=== PATIENT | male | born 1980 | race African-American/Black ===

== ENCOUNTER 2023-03-23 22:47 | Observation (INO) | payer MEDICAID, SELFPAY ==
[2023-03-23] VITALS (9 sets, daily range): BP systolic 107; BP diastolic 32; PULSE 88–96; RESP 15–26; TEMP 37.2; O2SAT 94–99; BMI 78.7
--- NOTE | 2023-03-23 22:58 | ECG_ITS ---
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
--- NOTE | 2023-03-23 22:58 | ED.ALLEREA1 ---
HPI - Allergic Reaction General Chief complaint: Allergic Reaction Stated complaint: allergic reaction Time Seen by Provider: 03/23/23 22:56 Source: patient Mode of arrival: ambulance History of Present Illness HPI narrative: patient states he was seen for an allergic reaction at [facility] a couple of days ago. Describes swelling of his lips and tongue. Discharged and yesterday the rash returned. Seen at local clinic today and prescribed dexamethasone. Tonight weak and light headed when standing. Feels like he is going to pass out and feels short of breath. Transferred to the Er by Squad. Arrives with BP 107 systolic. No chest pain. Feels like he is itching under his skin. No fever . Sl. nausea denies history of heart disease of diabetes MD complaint: Reports allergic reaction and hives Related Data Home Medications Medication Instructions Recorded Confirmed baclofen 10 mg tablet 5 mg PO Q8H 03/23/23 03/23/23 calcium carbonate 200 mg calcium 200 mg PO DAILY 03/23/23 03/23/23 (500 mg) chewable tablet (Tums) cyanocobalamin (vitamin B-12) 1,000 mcg PO DAILY 03/23/23 03/23/23 1,000 mcg tablet famotidine 40 mg tablet 40 mg PO DAILY 03/23/23 03/23/23 ferrous sulfate 325 mg (65 mg 325 mg PO DAILY 03/23/23 03/23/23 iron) tablet (FeroSul) hydrocodone 5 mg-acetaminophen 325 1 tab PO Q12H 03/23/23 03/23/23 mg tablet levothyroxine 125 mcg tablet 125 mcg PO DAILY 03/23/23 03/23/23 (Euthyrox) lidocaine HCl 4 % topical cream 1 applic topical Q8H PRN back pain 03/23/23 03/23/23 (Aspercreme (lidocaine HCl)) spironolactone 25 mg tablet 25 mg PO TID 03/23/23 03/23/23 torsemide 100 mg tablet 100 mg PO DAILY 03/23/23 03/23/23 tramadol 50 mg tablet 25 mg PO Q6H PRN pain 03/23/23 03/23/23 urea 20 % topical cream 1 applic topical DAILY PRN dry skin 03/23/23 03/23/23 Allergies Allergy/AdvReac Type Severity Reaction Status Date / Time Milk Containing Products Allergy Verified 03/23/23 22:55 (Dairy) Sulfa (Sulfonamide Allergy Verified 03/23/23 22:59 Antibiotics) vancomycin Allergy Verified 03/23/23 22:55 Review of Systems ROS Status of ROS 10 or more systems reviewed and unremarkable except as noted in history and below PFSH PFS Social History Smoking status: Never smoker Exam Constitutional Vital Signs, click to edit/add: Last Vital Signs Temp 98.9 F 03/23/23 22:50 Pulse 92 H 03/23/23 22:50 Resp 18 03/23/23 22:50 BP 107/32 L 03/23/23 22:50 Pulse Ox 98 03/23/23 22:50 O2 Del Method Room Air 03/23/23 22:50 Other: mobidly obese. gen hives on his chest and extremities. visibly short of breath moving from stretcher to bed. HENMT Common normals: normocephalic and head/scalp atraumatic Eye Common normals: EOMs intact bilaterally and conjunctivae normal Respiratory Common normals: normal respiratory effort, no retractions, no use of accessory muscles and clear to auscultation bilaterally Cardio Common normals: regular rate, regular rhythm and S1 normal heart sound GI Common normals: Normal to inspection, nondistended, normoactive bowel sounds present and soft to palpation Extremity Other: chronic bilat lymphedema Neuro Common normals: oriented x3, moves all extremities, no focal motor deficits and no sensory deficits noted Psych Appearance: grossly normal Course Vital Signs Vital signs: Vital Signs Temperature 98.9 F 03/23/23 22:50 Pulse Rate 92 H 03/23/23 22:50 Respiratory Rate 18 03/23/23 22:50 Blood Pressure 107/32 L 03/23/23 22:50 Pulse Oximetry 98 03/23/23 22:50 Oxygen Delivery Method Room Air 03/23/23 22:50 Temperature 98.9 F 03/23/23 22:50 Pulse Rate 92 H 03/23/23 22:50 Respiratory Rate 18 03/23/23 22:50 Blood Pressure 107/32 L 03/23/23 22:50 Pulse Oximetry 98 03/23/23 22:50 Oxygen Delivery Method Room Air 03/23/23 22:50 MDM - Allergic Reaction MDM Narrative Medical decision making narrative: patient presents with systemic allergic reaction manifested by shortness of breath, generalized weakness, systemic hives and hypotensive. First seen 3 days ago at [facility]. At that visit had swelling of his lips and tongue. Rash again yesterday and seen by his PCP and prescribed dexamethasone. Karen called Squad for shortness of breath, dizziness. [place] like he was going to pass out when he was upright. BP reported initially at 77 systolic at the scene. improved to > 100 systolic once in the Squad vehicle . Hs is morbidly obese and has history of obstructive sleep apnea and CKD. Noted to have diffuse gen. hives on his face, trunk and extremities. No wheezing. Treated with Epi 0.3 SQ, IV solumedrol, benadryl and pepcid and IV fluids. His rash has improve. He continues to complain of gen. itching. Given 2nd dose of benadryl and hospitalist paged for obs admission Discharge Plan Discharge Chief Complaint: Allergic Reaction Clinical Impression: Obstructive sleep apnea, Near syncope, Allergic reaction Prescriptions / Home Meds: No Action levothyroxine [Euthyrox] 125 mcg tablet 125 mcg PO DAILY hydrocodone-acetaminophen 5-325 mg tablet 1 tab PO Q12H spironolactone 25 mg tablet 25 mg PO TID torsemide 100 mg tablet 100 mg PO DAILY calcium carbonate [Tums] 200 mg calcium (500 mg) tablet,chewable 200 mg PO DAILY tramadol 50 mg tablet 25 mg PO Q6H PRN (Reason: pain) urea 20 % cream 1 applic topical DAILY PRN (Reason: dry skin) lidocaine HCl [Aspercreme (lidocaine HCl)] 4 % cream 1 applic topical Q8H PRN (Reason: back pain) baclofen 10 mg tablet 5 mg PO Q8H cyanocobalamin (vitamin B-12) 1,000 mcg tablet 1,000 mcg PO DAILY famotidine 40 mg tablet 40 mg PO DAILY ferrous sulfate [FeroSul] 325 mg (65 mg iron) tablet 325 mg PO DAILY Referrals: [facility] [Primary Care Provider] - 1 week
[2023-03-23] MEDS: EPINEPHRINE HCL PF 1 MG/ML AMPULE 0.3 MG SUBQ (23:45)
[2023-03-23] MEDS: METHYLPREDNISOLONE SOD SUCC PF 125 MG/2 ML VIAL IVP (23:45)
[2023-03-23] MEDS: 0.9 % SODIUM CHLORIDE 1,000 ML 999 ML IV (23:45)
[2023-03-23] MEDS: DIPHENHYDRAMINE HCL 25 MG CAPSULE 50 MG PO (23:58)
[2023-03-23] MEDS: FAMOTIDINE 20 MG TABLET 40 MG PO (23:58)
[2023-03-24] VITALS (14 sets, daily range): BP systolic 94; BP diastolic 55; PULSE 76–90; RESP 17–23; TEMP 36.8; O2SAT 93–98; BMI 78.7
[2023-03-24 00:21] LABS: Hematocrit 46.2 % (42.0-54.0); Hemoglobin 13.6 g/dL (14.0-18.0); Mean Corpuscular HGB Conc 29.4 g/dL (29.9-35.2); Mean Corpuscular Hemoglobin 28.2 pg (25.9-34.0); Mean Corpuscular Volume 95.7 fL (80.0-94.0); Platelet Count 234 10^3/uL (150-450); Red Blood Count 4.83 10^6/uL (4.70-6.10); Red Cell Distribution Width 15.9 % (11.0-15.0); White Blood Count 9.5 10^3/uL (4.0-11.0)
[2023-03-24 00:37] LABS: Anion Gap 11.1; BUN Creatinine Ratio 10.8; Calcium 8.1 mg/dL (8.5-10.1); Carbon Dioxide 27.7 mmol/L (21.0-32.0); Chloride 103 mmol/L (98-107); Estimated GFR (African America 48 (>=60); Estimated GFR (Non-African Ame 40 (>=60); Glucose 151 mg/dL (74-106); Potassium 3.8 mmol/L (3.5-5.1); Sodium 138 mmol/L (136-145); Troponin I High Sensitivity 19.5 pg/mL (4.0-76.1)
[2023-03-24 00:45] LABS: Lactate/Lactic Acid 2.2 mmol/L (0.4-2.0)
[2023-03-24 01:17] LABS: Band Neutrophils Absolute 2.1 10^3/uL (0.0-0.3); Lymphocytes Absolute Manual 1.23 10^3/uL (1.20-3.80); Monocytes Absolute Manual 0.85 10^3/uL (0.30-0.80); Segmented Neut Absolute Manual 5.32 10^3/uL (1.4-6.5)
[2023-03-24] MEDS: DIPHENHYDRAMINE HCL 50 MG/ML (1ML) VIAL IV (01:57)
[2023-03-24] MEDS: 0.9 % SODIUM CHLORIDE 1,000 ML 999 ML IV (01:57)
[2023-03-24 03:22] LABS: Lactate/Lactic Acid 1.6 mmol/L (0.4-2.0)
--- NOTE | 2023-03-24 04:38 | W.PM.TELEPN ---
Progress Note: Subjective Subjective Interval history: CC: Dizziness, lightheadedness, difficulty breathing HPI: This is a 42 years old -Indian male who presents with above complaints. Patient stating that few days ago he developed similar reaction and been seen in medical facility where he was diagnosed with allergic reaction/urticaria. He was treated with steroids, Benadryl and, after his symptoms resolved, was released home. Patient stating that symptoms reoccurred. On presentation to the emergency room he was found to be somewhat hypotensive, with urticaria patches on his skin. Patient was treated with epinephrine, Solu-Medrol, Pepcid, Benadryl with a good response. On further questioning patient denies any recent changes in his medications open (specifically no new medications been added prescription or [id number]). He denies using any new cleaning/cosmetic products. Exam Narrative Exam Narrative: ROS: 1.General: no fever, chills, not in distress 2.HEENT: no DOMÍNGUEZ, no blurry vision, no swallow problems, no nasal congestion, no sore throat 3.Pulmonary: See above 4.CVS: no CP, no palpitations, no SULLIVAN, no SOB, no intermittent claudication 5.GI: no nausea, vomiting or diarrhea, no abdominal pain, no constipation, no hematemesis or hematochezia 6.: no renal colic, no hematuria, urinary frequency or urgency 7.Extremities: no edema 8.Neurological: no dizziness, vertigo, double or blurry vision, no no focal weakness, no paresthesia, no swallow or speech problems 9.Musculosceletal: no joint pains, no joint swelling, no back pain 10.Dermatological: no skin rashes, no lesions, no pruritus 11.Hematological: no bleeding, no hx/o clots 12.Endocrinological: no heat/cold intolerance, no hx/o diabetes 13.Psychiatric: no suicidal or homicidal thoughts Physical Exam: Not in distress, pleasant, lucid, cooperative, morbidly obese Head - atraumatic, eyes - pupils equal, round, reactive to light, extra ocular movement intact, MMM Neck - supple, thyroid not enlarged, LN not palpated Lungs - clear to auscultation, no dullness on percussion CVS - heart sounds S1, S2, no additional murmurs gallop, regular rate and rhythm Gastrointestinal?abdomen is soft, non-tender, non-distended, no organomegaly, positive bowel sounds Extremities no clubbing, cyanosis or edema Neurological?cranial nerve II?XII grossly intact, no meningeal signs, no cerebellar signs, no sensory deficit Musculoskeletal - joints, no effusions, ROM preserved Dermatological - the skin dry, warm, no rashes Psychiatric?patient is AAO X3, patient has normal affect Constitutional Vital Signs, click to edit/add: Last Vital Signs Temp 98.3 F 03/24/23 03:09 Pulse 89 03/24/23 04:00 Resp 20 03/24/23 03:09 BP 94/55 03/24/23 03:09 Pulse Ox 96 03/24/23 03:09 O2 Del Method Room Air 03/24/23 03:09 O2 Flow Rate 2 03/24/23 03:09 Progress Note: Objective Labs Labs: Short CBC 03/23/23 Range/Units 23:28 WBC 9.5 (4.0-11.0) 10^3/uL Hgb 13.6 L (14.0-18.0) g/dL Hct 46.2 (42.0-54.0) % Plt Count 234 (150-450) 10^3/uL BMP 03/23/23 23:28 Sodium 138 Potassium 3.8 Chloride 103 Carbon Dioxide 27.7 BUN 20.0 H Creatinine 1.85 H Glucose 151 H Calcium 8.1 L Progress Note: A&P Assessment and Plan (1) Allergic reaction: Assessment and Plan: Reason unclear Continue close monitoring on telemetry Continue with Benadryl, Pepcid, Solu-Medrol (2) Obstructive sleep apnea: Assessment and Plan: Continue nocturnal CPAP with home settings (3) Acute kidney failure: Assessment and Plan: Diuretic is going to be on hold. Patient started on gentle, judicious IV fluid resuscitation (4) Hypothyroidism: Assessment and Plan: Continue with home dose of supplemental levothyroxine (5) Morbid obesity due to excess calories: Assessment and Plan: Defer to outpatient management (6) Diabetes: Assessment and Plan: Patient started on ADA diet, insulin sliding scale coverage, Accu-Cheks Plan END: As the provider for the telehealth service, I attest that I introduced myself to the patient, provided my credentials, disclosed by location and determined that based on a review of the patient's chart and discussion with members of the patient's treatment team, telemedicine via real-time, 2 way, and interactive audio and video platform is an appropriate and effective means of providing the service. ?The patient and I mutually agree this visit is appropriate for telemedicine. ?The virtual encounter was taken place from? [place], [place]. ?The encounter took approximately 35 minutes. ?The nurse was present during the entire time and I was able to move the stethoscope in appropriate directions. ?The patient was evaluated at the Hospital ? Portions of this note may be dictated using [email or web address] voice recognition software. Variances in spelling and vocabulary are possible and unintentional. Not all errors may be caught and/or corrected. Please notify the author if any discrepancies are noted and/or if the meaning of any statement is unclear.? ? Patient verbally consented for treatment via video visit with patient currently located at the [facility] and provider located in [place]. Telemedicine Attestation Telemedicine Attestation I conducted this encounter from [[place]] via secure live, [id number] video conference with the patient, located at [facility] with [urticaria]. Prior to the interview, the risks and benefits of telemedicine were discussed with the patient and verbal consent was obtained.
[2023-03-24 05:25] LABS: Basophils Percent Auto 0.3 % (0.2-2.0); Eosinophils Absolute Auto 0.1 10^3/uL (0.0-0.7); Eosinophils Percent Auto 0.4 % (0.9-7.0); Hematocrit 42.1 % (42.0-54.0); Hemoglobin 12.5 g/dL (14.0-18.0); Immature Granulocytes Abs Auto 0.09 10^3/uL (0.00-0.03); Immature Granulocytes Pct Auto 0.8 % (0.0-0.5); Lymphocytes Absolute Auto 0.4 10^3/uL (1.2-3.8); Lymphocytes Percent Auto 3.8 % (20.5-60.0); Mean Corpuscular HGB Conc 29.7 g/dL (29.9-35.2); Mean Corpuscular Hemoglobin 28.3 pg (25.9-34.0); Mean Corpuscular Volume 95.5 fL (80.0-94.0); Mean Platelet Volume 11.6 fL (9.5-13.5); Monocytes Absolute Auto 0.4 10^3/uL (0.3-0.8); Monocytes Percent Auto 3.1 % (1.7-12.0); Neutrophils Absolute Auto 10.5 10^3/uL (1.4-6.5); Neutrophils Percent Auto 91.6 % (43.0-75.0); Platelet Count 219 10^3/uL (150-450); Red Blood Count 4.41 10^6/uL (4.70-6.10); Red Cell Distribution Width 15.9 % (11.0-15.0); White Blood Count 11.4 10^3/uL (4.0-11.0)
[2023-03-24 05:34] LABS: Anion Gap 12.5; BUN Creatinine Ratio 10.4; Calcium 7.5 mg/dL (8.5-10.1); Carbon Dioxide 26.8 mmol/L (21.0-32.0); Chloride 104 mmol/L (98-107); Estimated GFR (African America 46 (>=60); Estimated GFR (Non-African Ame 38 (>=60); Glucose 195 mg/dL (74-106); Potassium 4.3 mmol/L (3.5-5.1); Sodium 139 mmol/L (136-145)
[2023-03-24] MEDS: LEVOTHYROXINE SODIUM 125 MCG TABLET PO (06:40)
[2023-03-24] MEDS: 0.9 % SODIUM CHLORIDE 1,000 ML 75 ML IV (06:40)
[2023-03-24 07:34] LABS: Glucometer 262 mg/dL (74-106)
[2023-03-24] MEDS: CALCIUM CARBONATE 500 MG (200MG ELEMENTAL) TAB CHEW PO (09:10)
[2023-03-24] MEDS: HYDROCODONE/ACET 5-325 MG TABLET 1 TAB PO (09:10)
[2023-03-24] MEDS: FAMOTIDINE/PF 20 MG/2 ML VIAL IV (09:10)
[2023-03-24] MEDS: BACLOFEN 10 MG TABLET 5 MG PO (09:10)
[2023-03-24] MEDS: METHYLPREDNISOLONE SOD SUCC PF 40 MG/ML VIAL IVP (09:10)
[2023-03-24] MEDS: INSULIN ASPART 300 UNIT/3 ML PEN SUBQ ×2 (09:10→11:49)
[2023-03-24 11:03] LABS: Glucometer 208 mg/dL (74-106)
--- NOTE | 2023-03-24 11:14 | PM.HP ---
H&P: HPI History of Present Illness Chief complaint: Allergic reaction Narrative: 42 y/o male to ER with allergic reaction. Developed rash over trunk and legs few days ago. [place] like tongue was swelling and SOB. Presented to ER in [place] and treated then discharged. Seen by PCP and started decadron. Continued to have rash and hives which were getting worse. [place] lightheaded like may pass out and to ER. Not sure why having reaction. Reports dairy allergy and recently had some ranch. In ER noted BP low. Given epi, steroids, benadryl and pepcid and admitted. Started solu-medrol and continued benadryl and pepcid. Rash improved but still c/o itching. History of CHF and lymphedema and reports increased swelling to legs. Review of Systems ROS Constitutional Denies: fever, chills or fatigue Cardiovascular Reports: edema, swelling of feet/ankles and lightheadedness; Denies: chest pain or palpitations Respiratory Reports: shortness of breath; Denies: cough or wheezing Gastrointestinal Denies: abdominal pain, nausea, vomiting or diarrhea Genitourinary Denies: painful urination [facility] Medical History (Updated 03/24/23 @ 08:51 by Ajit Mejia MD) Acute kidney failure ?N17.9 - Acute kidney failure, unspecified (ICD-10) Acute respiratory failure ?J96.00 - Acute respiratory failure, unspecified whether with hypoxia or hypercapnia (ICD-10) Adjustment disorder with anxiety ?F43.22 - Adjustment disorder with anxiety (ICD-10) Alveolar hypoventilation ?R06.89 - Other abnormalities of breathing (ICD-10) Anemia ?D64.9 - Anemia, unspecified (ICD-10) Chronic kidney disease, stage 3 ?N18.30 - Chronic kidney disease, stage 3 unspecified (ICD-10) Chronic respiratory failure ?J96.10 - Chronic respiratory failure, unspecified whether with hypoxia or hypercapnia (ICD-10) Constipation ?K59.00 - Constipation, unspecified (ICD-10) COVID-19 ?U07.1 - COVID-19 (ICD-10) Dependence on respirator [ventilator] status ?Z99.11 - Dependence on respirator [ventilator] status (ICD-10) Dependence on supplemental oxygen ?Z99.81 - Dependence on supplemental oxygen (ICD-10) Depression ?F32.A - Depression, unspecified (ICD-10) Diastolic heart failure ?I50.30 - Unspecified diastolic (congestive) heart failure (ICD-10) Dorsalgia ?M54.9 - Dorsalgia, unspecified (ICD-10) GERD (gastroesophageal reflux disease) ?K21.9 - Gastro-esophageal reflux disease without esophagitis (ICD-10) Hypothyroidism ?E03.9 - Hypothyroidism, unspecified (ICD-10) Hypoxia ?R09.02 - Hypoxemia (ICD-10) Muscle weakness (generalized) ?M62.81 - Muscle weakness (generalized) (ICD-10) Pulmonary hypertension ?I27.20 - Pulmonary hypertension, unspecified (ICD-10) Respiratory disorders in diseases classified elsewhere ?J99 - Respiratory disorders in diseases classified elsewhere (ICD-10) Unsteadiness on feet ?R26.81 - Unsteadiness on feet (ICD-10) Surgical History (Updated 03/24/23 @ 03:27 by Robert Ferreira) History of cholecystectomy ?Z90.49 - Acquired absence of other specified parts of digestive tract (ICD-10) Family History (Updated 03/24/23 @ 03:30 by Robert Ferreira) Mother Family history of CHF (congestive heart failure) Family history of cancer Family history of diabetes mellitus Half-brother Family history of diabetes mellitus Other Family history of hypertension Social History (Updated 03/24/23 @ 03:37 by Robert Ferreira) Within the past year, how often did you have a drink containing alcohol: monthly or less Within the past year, how often did you have six or more drinks on one occasion: never Smoking status: Never smoker Non-prescribed substance use: denies use Previous occupational history: disabled Known occupational exposures/hazards: No Highest level of school completed/degree received: high school graduate Are you now , , , , never or living with a partner: In a typical week, how many times do you talk on the telephone with family, friends, or neighbors: 3 or more times per week How often do you get together with friends or relatives: once per week How often do you attend oriental orthodox or tenriism services: never Do you belong to any clubs or organizations such as oriental orthodox groups unions, fraternal or athletic groups, or school groups: no Total score: 1 Score interpretation: A score of less than or equal to 1 indicates the most socially isolated. Little interest or pleasure in doing things: several days Feeling down, depressed, or hopeless: not at all Feel stressed/tense/nervous/anxious/difficulty sleeping: not at all Due to disability, difficulty making decisions: No Gender Identity: male Meds Home Medications and Allergies Home Medications Medication Instructions Recorded Confirmed Type baclofen 10 mg tablet 5 mg PO Q8H 03/23/23 03/23/23 History calcium carbonate 200 mg calcium 200 mg PO DAILY 03/23/23 03/23/23 History (500 mg) chewable tablet (Tums) cyanocobalamin (vitamin B-12) 1,000 mcg PO DAILY 03/23/23 03/23/23 History 1,000 mcg tablet famotidine 40 mg tablet 40 mg PO DAILY 03/23/23 03/23/23 History ferrous sulfate 325 mg (65 mg 325 mg PO DAILY 03/23/23 03/23/23 History iron) tablet (FeroSul) hydrocodone 5 mg-acetaminophen 325 1 tab PO Q12H 03/23/23 03/23/23 History mg tablet levothyroxine 125 mcg tablet 125 mcg PO DAILY 03/23/23 03/23/23 History (Euthyrox) lidocaine HCl 4 % topical cream 1 applic topical Q8H PRN back pain 03/23/23 03/23/23 History (Aspercreme (lidocaine HCl)) spironolactone 25 mg tablet 25 mg PO TID 03/23/23 03/23/23 History torsemide 100 mg tablet 100 mg PO DAILY 03/23/23 03/23/23 History tramadol 50 mg tablet 25 mg PO Q6H PRN pain 03/23/23 03/23/23 History urea 20 % topical cream 1 applic topical DAILY PRN dry skin 03/23/23 03/23/23 History acetaminophen 325 mg tablet 650 mg PO Q4H PRN pain 03/24/23 03/24/23 History albuterol sulfate 0.63 mg/3 mL 0.833 mg inhalation Q4H PRN 03/24/23 03/24/23 History solution for nebulization shortness of breath or wheezing diphenhydramine HCl 25 mg tablet 50 mg PO Q6H PRN itching 03/24/23 03/24/23 History (Banophen) guaifenesin 100 mg/5 mL oral 400 mg PO Q4H PRN cough 03/24/23 03/24/23 History liquid (Chest Congestion Relief) hydrocortisone 1 % topical cream 1 applic topical QID PRN itching 03/24/23 03/24/23 History nystatin 100,000 unit/gram topical 1 applic topical BID 03/24/23 03/24/23 History powder (Nyamyc) ondansetron HCl 4 mg tablet 4 mg PO Q4H PRN nausea and vomiting 03/24/23 03/24/23 History Allergies Allergy/AdvReac Type Severity Reaction Status Date / Time latex Allergy Verified 03/24/23 04:10 Milk Containing Products Allergy Verified 03/24/23 04:10 (Dairy) Sulfa (Sulfonamide Allergy Verified 03/24/23 04:10 Antibiotics) tomato Allergy Verified 03/24/23 04:10 vancomycin Allergy Verified 03/24/23 04:10 Exam Constitutional Vital Signs, click to edit/add: Last Vital Signs Temp 98.3 F 03/24/23 03:09 Pulse 76 03/24/23 09:55 Resp 20 03/24/23 03:09 BP 94/55 03/24/23 03:09 Pulse Ox 96 03/24/23 03:09 O2 Del Method Room Air 03/24/23 03:09 O2 Flow Rate 2 03/24/23 03:09 Documenting provider has reviewed patient's vital signs: yes Common normals: no apparent distress, oriented x3 and alert HENMT Common normals: normocephalic Eye Common normals: PERRL and EOMs intact bilaterally Respiratory Common normals: normal respiratory effort and clear to auscultation bilaterally Cardio Common normals: regular rate, regular rhythm, no gallops, no murmurs and no rub GI Common normals: Normal to inspection, nondistended, normoactive bowel sounds present and non-tender Extremity General: edema (3+ nonpitting edema in bilateral LE) Results Labs Labs: Short CBC 03/23/23 03/24/23 Range/Units 23:28 04:35 WBC 9.5 11.4 H (4.0-11.0) 10^3/uL Hgb 13.6 L 12.5 L (14.0-18.0) g/dL Hct 46.2 42.1 (42.0-54.0) % Plt Count 234 219 (150-450) 10^3/uL BMP 03/23/23 03/24/23 23:28 04:35 Sodium 138 139 Potassium 3.8 4.3 Chloride 103 104 Carbon Dioxide 27.7 26.8 BUN 20.0 H 20.0 H Creatinine 1.85 H 1.93 H Glucose 151 H 195 H Calcium 8.1 L 7.5 L Pulse Oximetry Attestation: I have reviewed the pertinent pulse oximetry results. Assessment and Plan Assessment and Plan (1) Allergic reaction: (2) Obstructive sleep apnea: (3) Morbid obesity due to excess calories: (4) Diabetes: (5) Lymphedema: (6) Chronic heart failure with preserved ejection fraction (HFpEF): (7) Stage 3a chronic kidney disease (CKD): (8) Essential hypertension: (9) Near syncope: (10) Urticaria: Plan Presented with allergic reaction possibly related to dairy. Improved with steroids. Vitals stable. C/o edema and give dose IV lasix. Discharge home. Will treat with prednisone x 12 days. Use benadryl PRN. Resume home medication without change. F/u with PCP in 1-2 weeks.
--- NOTE | 2023-03-24 11:40 | CM.NOTE ---
Rounds made with Dr. Mejia, pt ok for discharge to home today. No discharge needs identified.
[2023-03-24] MEDS: FUROSEMIDE 40 MG/4 ML VIAL IVP (11:49)
[2023-03-24] MEDS: NYSTATIN 15 GM POWDER 1 APPLIC TOPICAL (11:49)
--- NOTE | 2023-03-25 12:43 | CM.NOTE ---
Attempted to do Discharge follow up phone call. No answer.
--- NOTE | 2023-03-29 10:06 | CM.DCFOLLOWU ---
Person spoke with:Milad How are you feeling? Doing ok How is your pain? no complaints Did you understand your discharge instructions? Yes Do you have any questions about your discharge instructions? no questions Were you given any prescriptions at discharge? yes Were you able to get your prescriptions filled? yes Do you understand how to take your medications as ordered? yes Do you have any questions about your follow up appointment and do you plan to keep your follow up appointment? My appointment is this March 31 Is there anything else that you would like to discuss? nope. Thank you. Questions/Comments/Concerns/Other:
== END 2023-03-24 14:20 | disposition home or self-care (01) ==
LOC: ER 23:41 → MS 03-24 03:08
PROVIDERS: Admitting Provider Internal Medicine; Emergency Provider Internal Medicine; Visit Provider Family Medicine
DX: T78.40XA Allergy, unspecified, initial encounter (principal); I13.0 Hypertensive heart and chronic kidney disease with heart failure and stage 1 through stage 4 chronic kidney disease, or unspecified chronic kidney disease; N18.31 Chronic kidney disease, stage 3a; L50.0 Allergic urticaria; E11.22 Type 2 diabetes mellitus with diabetic chronic kidney disease; I50.32 Chronic diastolic (congestive) heart failure; G47.33 Obstructive sleep apnea (adult) (pediatric); E66.01 Morbid (severe) obesity due to excess calories; N17.9 Acute kidney failure, unspecified; E03.9 Hypothyroidism, unspecified; R55 Syncope and collapse; Z79.899 Other long term (current) drug therapy; Z79.890 Hormone replacement therapy; Z68.45 Body mass index [BMI] 70 or greater, adult
CPT/HCPCS: 36415; 80048; 82948; 83605; 84484; 85025; 85027; 93005; 96361; 96372; 96374; 96375; 96376; 99285; G0378; J2920; J2930

== ENCOUNTER 2023-03-25 16:08 | Emergency (ER) | payer MEDICAID, SELFPAY ==
[2023-03-25] VITALS (13 sets, daily range): BP systolic 135–159; BP diastolic 75–95; PULSE 62–84; RESP 18–31; TEMP 36.4; O2SAT 95–98; BMI 76.0
--- NOTE | 2023-03-25 16:23 | ED_ITS ---
HPI - General Adult General Chief complaint: Skin/Abscess/Foreign Body Stated complaint: shortness of breath Time Seen by Provider: 03/25/23 16:14 Source: patient Mode of arrival: ambulance Limitations: no limitations History of Present Illness HPI narrative: Patient brought in by EMS for evaluation of itchy hive reaction and sensation of difficulty breathing/shortness of breath with concern for possible allergic reaction. The patient was just discharged yesterday from [facility] after an admission for similar symptoms. At that time he had the sensation that he was going to pass out. He was discharged home on a steroid taper, which he took today, and Benadryl - his last dose of that w3as at 7am. He had previously been evaluyated and treated at [place] [facility] and at a local clinic - prescribed dexamethasone - before being admitted to [facility] 03/23/23. Related Data Home Medications Medication Instructions Recorded Confirmed baclofen 10 mg tablet 5 mg PO Q8H 03/23/23 03/23/23 calcium carbonate 200 mg calcium 200 mg PO DAILY 03/23/23 03/23/23 (500 mg) chewable tablet (Tums) cyanocobalamin (vitamin B-12) 1,000 mcg PO DAILY 03/23/23 03/23/23 1,000 mcg tablet famotidine 40 mg tablet 40 mg PO DAILY 03/23/23 03/23/23 ferrous sulfate 325 mg (65 mg 325 mg PO DAILY 03/23/23 03/23/23 iron) tablet (FeroSul) hydrocodone 5 mg-acetaminophen 325 1 tab PO Q12H 03/23/23 03/23/23 mg tablet levothyroxine 125 mcg tablet 125 mcg PO DAILY 03/23/23 03/23/23 (Euthyrox) lidocaine HCl 4 % topical cream 1 applic topical Q8H PRN back pain 03/23/23 03/23/23 (Aspercreme (lidocaine HCl)) spironolactone 25 mg tablet 25 mg PO TID 03/23/23 03/23/23 torsemide 100 mg tablet 100 mg PO DAILY 03/23/23 03/23/23 tramadol 50 mg tablet 25 mg PO Q6H PRN pain 03/23/23 03/23/23 urea 20 % topical cream 1 applic topical DAILY PRN dry skin 03/23/23 03/23/23 acetaminophen 325 mg tablet 650 mg PO Q4H PRN pain 03/24/23 03/24/23 albuterol sulfate 0.63 mg/3 mL 0.833 mg inhalation Q4H PRN 03/24/23 03/24/23 solution for nebulization shortness of breath or wheezing diphenhydramine HCl 25 mg tablet 50 mg PO Q6H PRN itching 03/24/23 03/24/23 (Banophen) guaifenesin 100 mg/5 mL oral 400 mg PO Q4H PRN cough 03/24/23 03/24/23 liquid (Chest Congestion Relief) hydrocortisone 1 % topical cream 1 applic topical QID PRN itching 03/24/23 03/24/23 nystatin 100,000 unit/gram topical 1 applic topical BID 03/24/23 03/24/23 powder (Nyamyc) ondansetron HCl 4 mg tablet 4 mg PO Q4H PRN nausea and vomiting 03/24/23 03/24/23 Previous Rx's Medication Instructions Recorded prednisone 10 mg tablets in a dose 10 mg PO DAILY #39 ea 03/24/23 pack famotidine 40 mg tablet (Pepcid) 40 mg PO DAILY #30 tabs 03/25/23 Allergies Allergy/AdvReac Type Severity Reaction Status Date / Time latex Allergy Verified 03/24/23 04:10 Milk Containing Products Allergy Verified 03/24/23 04:10 (Dairy) Sulfa (Sulfonamide Allergy Verified 03/24/23 04:10 Antibiotics) tomato Allergy Verified 03/24/23 04:10 vancomycin Allergy Verified 03/24/23 04:10 [facility] Medical History (Updated 03/25/23 @ 16:28 by Adrian Foster) Acute kidney failure ?N17.9 - Acute kidney failure, unspecified (ICD-10) Acute respiratory failure ?J96.00 - Acute respiratory failure, unspecified whether with hypoxia or hypercapnia (ICD-10) Adjustment disorder with anxiety ?F43.22 - Adjustment disorder with anxiety (ICD-10) Alveolar hypoventilation ?R06.89 - Other abnormalities of breathing (ICD-10) Anemia ?D64.9 - Anemia, unspecified (ICD-10) Chronic kidney disease, stage 3 ?N18.30 - Chronic kidney disease, stage 3 unspecified (ICD-10) Chronic respiratory failure ?J96.10 - Chronic respiratory failure, unspecified whether with hypoxia or hypercapnia (ICD-10) Constipation ?K59.00 - Constipation, unspecified (ICD-10) COVID-19 ?U07.1 - COVID-19 (ICD-10) Dependence on respirator [ventilator] status ?Z99.11 - Dependence on respirator [ventilator] status (ICD-10) Dependence on supplemental oxygen ?Z99.81 - Dependence on supplemental oxygen (ICD-10) Depression ?F32.A - Depression, unspecified (ICD-10) Diastolic heart failure ?I50.30 - Unspecified diastolic (congestive) heart failure (ICD-10) Dorsalgia ?M54.9 - Dorsalgia, unspecified (ICD-10) GERD (gastroesophageal reflux disease) ?K21.9 - Gastro-esophageal reflux disease without esophagitis (ICD-10) Hypothyroidism ?E03.9 - Hypothyroidism, unspecified (ICD-10) Hypoxia ?R09.02 - Hypoxemia (ICD-10) Muscle weakness (generalized) ?M62.81 - Muscle weakness (generalized) (ICD-10) Pulmonary hypertension ?I27.20 - Pulmonary hypertension, unspecified (ICD-10) Respiratory disorders in diseases classified elsewhere ?J99 - Respiratory disorders in diseases classified elsewhere (ICD-10) Unsteadiness on feet ?R26.81 - Unsteadiness on feet (ICD-10) Surgical History (Updated 03/24/23 @ 03:27 by Robert Ferreira) History of cholecystectomy ?Z90.49 - Acquired absence of other specified parts of digestive tract (ICD- 10) Family History (Updated 03/24/23 @ 03:30 by Robert Ferreira) Mother Family history of CHF (congestive heart failure) Family history of cancer Family history of diabetes mellitus Half-brother Family history of diabetes mellitus Other Family history of hypertension Social History (Updated 03/24/23 @ 03:37 by Robert Ferreira) Within the past year, how often did you have a drink containing alcohol: monthly or less Within the past year, how often did you have six or more drinks on one occasion: never Smoking status: Never smoker Non-prescribed substance use: denies use Previous occupational history: disabled Known occupational exposures/hazards: No Highest level of school completed/degree received: high school graduate Are you now , , , , never or living with a partner: In a typical week, how many times do you talk on the telephone with family, friends, or neighbors: 3 or more times per week How often do you get together with friends or relatives: once per week How often do you attend restorationist or yarsanism services: never Do you belong to any clubs or organizations such as restorationist groups unions, fraternal or athletic groups, or school groups: no Total score: 1 Score interpretation: A score of less than or equal to 1 indicates the most socially isolated. Little interest or pleasure in doing things: several days Feeling down, depressed, or hopeless: not at all Feel stressed/tense/nervous/anxious/difficulty sleeping: not at all Due to disability, difficulty making decisions: No Gender Identity: male Exam Narrative Exam Narrative: Nurses notes and vital signs reviewed and patient is not hypoxic. afebrile General: Well-appearing and in no apparent distress. Skin: Warm, dry, no pallor noted. Generalized hive reaction rash most prominent on the chest and upper extremities. Head: Normocephalic, atraumatic. Eye: Pupils are equal, round and EOMI. No scleral icterus. Ears, Nose, Mouth, and Throat: Oral mucosa is moist, no posterior oropharynx erythema or swelling, no tongue swelling, uvula is mid-line without swelling. Cardiovascular: Regular Rate and Rhythm without murmur, gallop or rub. Respiratory: No accessory muscle use or respiratory distress. Lungs are clear to auscultation, no wheezing, rales or rhonchi Musculoskeletal: normal ROM, no calf or popliteal tenderness, no lower extremity edema/swelling GI: Abdomen is soft, non-distended. Normal bowel sounds. Morbidly obese. No tenderness to palpation. No rebound, guarding, or rigidity noted. Neurological: A&O x4. No cranial nerve dysfunction observed. No truncal at axia. Moves all extremities. Sensation intact. Psychiatric: Cooperative and interactive. Normal mood and affect. Constitutional Vital Signs, click to edit/add: Last Vital Signs Temp 97.6 F 03/25/23 16:10 Pulse 80 03/25/23 18:00 Resp 25 H 03/25/23 18:00 BP 135/75 03/25/23 17:30 Pulse Ox 98 03/25/23 18:00 O2 Del Method Room Air 03/25/23 16:53 Course Vital Signs Vital signs: Vital Signs Temperature 97.6 F 03/25/23 16:10 Pulse Rate 75 03/25/23 16:10 Respiratory Rate 20 03/25/23 16:10 Blood Pressure 148/80 H 03/25/23 16:10 Pulse Oximetry 95 03/25/23 16:10 Oxygen Delivery Method Room Air 03/25/23 16:10 Temperature 97.6 F 03/25/23 16:10 Pulse Rate 80 03/25/23 18:00 Respiratory Rate 25 H 03/25/23 18:00 Blood Pressure 135/75 03/25/23 17:30 Pulse Oximetry 98 03/25/23 18:00 Oxygen Delivery Method Room Air 03/25/23 16:53 Medical Decision Making MDM Narrative Medical decision making narrative: Patient was placed on hospital monitor. He was given IM Solumedrol, oral Joy dryl, oral Pepcid and SQ Epinephrine. On recheck at 1730 his hives had lessened. He complained of some nausea so he was given ODT Zofran. On recheck at 1830 he had further improvement. He was discharged home. We discussed the possibility of him staying with a friend and out of his apartment to see if that helps to keep the symptoms from worsening - there may be something at his apartment that is triggering the reaction. he was instructed to continue to take the steroids and Benadryl. I also prescribed Pepcid for him to take at home. Discharge Plan Discharge Chief Complaint: Skin/Abscess/Foreign Body Clinical Impression: Urticaria, Allergic reaction Patient Disposition: Home, Self-Care Time of Disposition Decision: 18:30 Prescriptions / Home Meds: New famotidine [Pepcid] 40 mg tablet 40 mg PO DAILY Qty: 30 0RF No Action levothyroxine [Euthyrox] 125 mcg tablet 125 mcg PO DAILY hydrocodone-acetaminophen 5-325 mg tablet 1 tab PO Q12H spironolactone 25 mg tablet 25 mg PO TID torsemide 100 mg tablet 100 mg PO DAILY calcium carbonate [Tums] 200 mg calcium (500 mg) tablet,chewable 200 mg PO DAILY tramadol 50 mg tablet 25 mg PO Q6H PRN (Reason: pain) urea 20 % cream 1 applic topical DAILY PRN (Reason: dry skin) lidocaine HCl [Aspercreme (lidocaine HCl)] 4 % cream 1 applic topical Q8H PRN (Reason: back pain) baclofen 10 mg tablet 5 mg PO Q8H cyanocobalamin (vitamin B-12) 1,000 mcg tablet 1,000 mcg PO DAILY famotidine 40 mg tablet 40 mg PO DAILY ferrous sulfate [FeroSul] 325 mg (65 mg iron) tablet 325 mg PO DAILY acetaminophen 325 mg tablet 650 mg PO Q4H PRN (Reason: pain) albuterol sulfate 0.63 mg/3 mL solution for nebulization 0.833 mg inhalation Q4H PRN (Reason: shortness of breath or wheezing) diphenhydramine HCl [Banophen] 25 mg tablet 50 mg PO Q6H PRN (Reason: itching) guaifenesin [Chest Congestion Relief] 100 mg/5 mL liquid 400 mg PO Q4H PRN (Reason: cough) hydrocortisone 1 % cream 1 applic topical QID PRN (Reason: itching) nystatin [Nyamyc] 100,000 unit/gram powder 1 applic topical BID ondansetron HCl 4 mg tablet 4 mg PO Q4H PRN (Reason: nausea and vomiting) Rx Instructions: give 1st dose 30min before emetogenic chemo prednisone 10 mg tablets,dose pack 10 mg PO DAILY Qty: 39 0RF Rx Instructions: 6 PO daily x 3 days, then 4 PO daily x 3 days, then 2 PO daily x 3 days, then 1 PO daily x 3 days Instructions: Urticaria (ED), General Allergic Reaction (ED) Stand Alone Forms: Portal Instructions Referrals: [facility] [Primary Care Provider] - 1 week
[2023-03-25] MEDS: DIPHENHYDRAMINE HCL 25 MG/10 ML ELIXIR PO (16:40)
[2023-03-25] MEDS: FAMOTIDINE 20 MG TABLET 40 MG PO (16:40)
[2023-03-25] MEDS: EPINEPHRINE HCL PF 1 MG/ML AMPULE 0.3 MG SUBQ (16:41)
[2023-03-25] MEDS: METHYLPREDNISOLONE SOD SUCC PF 125 MG/2 ML VIAL IM (16:41)
--- NOTE | 2023-03-25 16:49 | PC.NURSE ---
Large hives to various areas of pt's body. Pt is c/o itching and just started on steroid for hives yesterday or today. No swelling to lips or tongue observed, pulse ox is 97-98% on ra. Explained to pt that hives usu take a few days after medication is started.
[2023-03-25] MEDS: ONDANSETRON 4 MG RAPDIS TABLET SL (17:46)
--- NOTE | 2023-03-25 17:59 | PC.NURSE ---
HIves remain with little improvement, pt reports itching better, still no swelling to lips or tongue, remains on ra at 99%
== END 2023-03-25 19:59 | disposition home or self-care (01) ==
PROVIDERS: Emergency Provider Emergency Medicine
DX: L50.0 Allergic urticaria (principal)
CPT/HCPCS: 96372; 99285; J2930

== ENCOUNTER 2023-06-08 21:39 | Emergency (ER) | payer MEDICAID, SELFPAY ==
[2023-06-08 21:43] VITALS: BP 134/66; PULSE 85; RESP 20; TEMP 36.6; O2SAT 95; BMI 74.7
--- NOTE | 2023-06-08 21:45 | ED.UPPEXIN1 ---
HPI - Extremity Injury (Upper) General Chief Complaint: Extremity Injury, Upper Stated Complaint: Upper Extremity Pain Time Seen by Provider: 06/08/23 21:45 Source: patient Mode of arrival: ambulance History of Present Illness HPI narrative: This 43-year-old male with a history of morbid obesity was status post gastric bypass surgery at [facility] on May 24 and has been on Lovenox presents for evaluation of severe pain in his right distal forearm/wrist area. He is not having any pain in his upper arm or humerus area. He states that he has missed several doses of his Lovenox was concerned that he was developing a blood clot. He has some mild swelling and redness and exquisite tenderness in this area concerning for gout. He denies any trauma. He has not had any falls. He states that he is not eating yet and is still on phase I of his diet after his gastric bypass surgery. He denies drinking alcohol. Related Data Home Medications Medication Instructions Recorded Confirmed baclofen 10 mg tablet 5 mg PO Q8H 03/23/23 03/23/23 calcium carbonate 200 mg calcium 200 mg PO DAILY 03/23/23 03/23/23 (500 mg) chewable tablet (Tums) cyanocobalamin (vitamin B-12) 1,000 mcg PO DAILY 03/23/23 03/23/23 1,000 mcg tablet famotidine 40 mg tablet 40 mg PO DAILY 03/23/23 03/23/23 ferrous sulfate 325 mg (65 mg 325 mg PO DAILY 03/23/23 03/23/23 iron) tablet (FeroSul) hydrocodone 5 mg-acetaminophen 325 1 tab PO Q12H 03/23/23 03/23/23 mg tablet levothyroxine 125 mcg tablet 125 mcg PO DAILY 03/23/23 03/23/23 (Euthyrox) lidocaine HCl 4 % topical cream 1 applic topical Q8H PRN back pain 03/23/23 03/23/23 (Aspercreme (lidocaine HCl)) spironolactone 25 mg tablet 25 mg PO TID 03/23/23 03/23/23 torsemide 100 mg tablet 100 mg PO DAILY 03/23/23 03/23/23 tramadol 50 mg tablet 25 mg PO Q6H PRN pain 03/23/23 03/23/23 urea 20 % topical cream 1 applic topical DAILY PRN dry skin 03/23/23 03/23/23 acetaminophen 325 mg tablet 650 mg PO Q4H PRN pain 03/24/23 03/24/23 albuterol sulfate 0.63 mg/3 mL 0.833 mg inhalation Q4H PRN 03/24/23 03/24/23 solution for nebulization shortness of breath or wheezing diphenhydramine HCl 25 mg tablet 50 mg PO Q6H PRN itching 03/24/23 03/24/23 (Banophen) guaifenesin 100 mg/5 mL oral 400 mg PO Q4H PRN cough 03/24/23 03/24/23 liquid (Chest Congestion Relief) hydrocortisone 1 % topical cream 1 applic topical QID PRN itching 03/24/23 03/24/23 nystatin 100,000 unit/gram topical 1 applic topical BID 03/24/23 03/24/23 powder (Nyamyc) ondansetron HCl 4 mg tablet 4 mg PO Q4H PRN nausea and vomiting 03/24/23 03/24/23 Previous Rx's Medication Instructions Recorded prednisone 10 mg tablets in a dose 10 mg PO DAILY #39 ea 03/24/23 pack famotidine 40 mg tablet (Pepcid) 40 mg PO DAILY #30 tabs 03/25/23 Allergies Allergy/AdvReac Type Severity Reaction Status Date / Time latex Allergy Verified 03/24/23 04:10 Milk Containing Products Allergy Verified 03/24/23 04:10 (Dairy) Sulfa (Sulfonamide Allergy Verified 03/24/23 04:10 Antibiotics) tomato Allergy Verified 03/24/23 04:10 vancomycin Allergy Verified 03/24/23 04:10 Review of Systems ROS Status of ROS 10 or more systems reviewed and unremarkable except as noted in history and below [facility] Medical History (Updated 06/08/23 @ 22:54 by López Carlos MD) Stage 3a chronic kidney disease (CKD) ?N18.31 - Chronic kidney disease, stage 3a (ICD-10) Chronic heart failure with preserved ejection fraction (HFpEF) ?I50.32 - Chronic diastolic (congestive) heart failure (ICD-10) Diabetes ?E11.9 - Type 2 diabetes mellitus without complications (ICD-10) Pulmonary hypertension ?I27.20 - Pulmonary hypertension, unspecified (ICD-10) Dependence on supplemental oxygen ?Z99.81 - Dependence on supplemental oxygen (ICD-10) COVID-19 ?U07.1 - COVID-19 (ICD-10) Chronic kidney disease, stage 3 ?N18.30 - Chronic kidney disease, stage 3 unspecified (ICD-10) Respiratory disorders in diseases classified elsewhere ?J99 - Respiratory disorders in diseases classified elsewhere (ICD-10) Hypothyroidism ?E03.9 - Hypothyroidism, unspecified (ICD-10) Dependence on respirator [ventilator] status ?Z99.11 - Dependence on respirator [ventilator] status (ICD-10) Muscle weakness (generalized) ?M62.81 - Muscle weakness (generalized) (ICD-10) Unsteadiness on feet ?R26.81 - Unsteadiness on feet (ICD-10) Essential hypertension ?I10 - Essential (primary) hypertension (ICD-10) Depression ?F32.A - Depression, unspecified (ICD-10) GERD (gastroesophageal reflux disease) ?K21.9 - Gastro-esophageal reflux disease without esophagitis (ICD-10) Dorsalgia ?M54.9 - Dorsalgia, unspecified (ICD-10) Diastolic heart failure ?I50.30 - Unspecified diastolic (congestive) heart failure (ICD-10) Alveolar hypoventilation ?R06.89 - Other abnormalities of breathing (ICD-10) Morbid obesity due to excess calories ?E66.01 - Morbid (severe) obesity due to excess calories (ICD-10) Constipation ?K59.00 - Constipation, unspecified (ICD-10) Acute kidney failure ?N17.9 - Acute kidney failure, unspecified (ICD-10) Adjustment disorder with anxiety ?F43.22 - Adjustment disorder with anxiety (ICD-10) Anemia ?D64.9 - Anemia, unspecified (ICD-10) Hypoxia ?R09.02 - Hypoxemia (ICD-10) Chronic respiratory failure ?J96.10 - Chronic respiratory failure, unspecified whether with hypoxia or hypercapnia (ICD-10) Acute respiratory failure ?J96.00 - Acute respiratory failure, unspecified whether with hypoxia or hypercapnia (ICD-10) Lymphedema ?I89.0 - Lymphedema, not elsewhere classified (ICD-10) Obstructive sleep apnea ?G47.33 - Obstructive sleep apnea (adult) (pediatric) (ICD-10) Surgical History (Updated 03/24/23 @ 03:27 by Robert Ferreira) History of cholecystectomy ?Z90.49 - Acquired absence of other specified parts of digestive tract (ICD-10) Family History (Updated 03/24/23 @ 03:30 by Robert Ferreira) Mother Family history of CHF (congestive heart failure) Family history of cancer Family history of diabetes mellitus Half-brother Family history of diabetes mellitus Other Family history of hypertension Social History (Updated 03/24/23 @ 03:37 by Robert Ferreira) Within the past year, how often did you have a drink containing alcohol: monthly or less Within the past year, how often did you have six or more drinks on one occasion: never Smoking status: Never smoker Non-prescribed substance use: denies use Previous occupational history: disabled Known occupational exposures/hazards: No Highest level of school completed/degree received: high school graduate Are you now , , , , never or living with a partner: In a typical week, how many times do you talk on the telephone with family, friends, or neighbors: 3 or more times per week How often do you get together with friends or relatives: once per week How often do you attend scientology or anglican services: never Do you belong to any clubs or organizations such as scientology groups unions, fraternal or athletic groups, or school groups: no Total score: 1 Score interpretation: A score of less than or equal to 1 indicates the most socially isolated. Little interest or pleasure in doing things: several days Feeling down, depressed, or hopeless: not at all Feel stressed/tense/nervous/anxious/difficulty sleeping: not at all Due to disability, difficulty making decisions: No Gender Identity: male Exam Narrative Exam Narrative: Nurses note and vital signs reviewed and patient is not hypoxic. He is afebrile with a normal pulse. General: Morbidly obese -Mongolian male resting currently on the stretcher, no respiratory distress Skin: Warm, dry, no pallor noted. There is no rash noted. Head: Normocephalic, atraumatic Eye: Normal conjunctiva, no drainage, EOMI. PERRL Ears, Nose, Mouth, and Throat: oral mucosa is moist. Cardiovascular: Regular Rate and Rhythm S1S2, no murmurs, rubs or gallops Respiratory: Patient is in no distress, no accessory muscle use, lungs are clear to auscultation, no wheezing, rales or rhonchi Back: non-tender, no CVA tenderness bilaterally to percussion. GI: Normal bowel sounds, no tenderness to palpation, no masses appreciated. No rebound, guarding, or rigidity noted. Musculoskeletal: Tenderness with mild erythema and minimal swelling to right distal forearm/wrist, no hand swelling. Radial pulse is brisk, capillary refill in right fingers is less than 2 seconds Neurological: A&O x4, normal speech Psychiatric: Cooperative Constitutional Vital Signs, click to edit/add: Last Vital Signs Temp 97.9 F 06/08/23 21:43 Pulse 85 06/08/23 21:51 Resp 20 06/08/23 21:43 BP 134/66 06/08/23 21:43 Pulse Ox 95 06/08/23 21:43 O2 Del Method Nasal Cannula 06/08/23 21:43 O2 Flow Rate 2 06/08/23 21:43 Course Vital Signs Vital signs: Vital Signs Temperature 97.9 F 06/08/23 21:43 Pulse Rate 85 06/08/23 21:43 Respiratory Rate 20 06/08/23 21:43 Blood Pressure 134/66 06/08/23 21:43 Pulse Oximetry 95 06/08/23 21:43 Oxygen Delivery Method Nasal Cannula 06/08/23 21:43 Oxygen Delivery Flow Rate 2 06/08/23 21:43 Temperature 97.9 F 06/08/23 21:43 Pulse Rate 85 06/08/23 21:51 Respiratory Rate 20 06/08/23 21:43 Blood Pressure 134/66 06/08/23 21:43 Pulse Oximetry 95 06/08/23 21:43 Oxygen Delivery Method Nasal Cannula 06/08/23 21:43 Oxygen Delivery Flow Rate 2 06/08/23 21:43 MDM - Extremity Injury (Upper) MDM Narrative Medical decision making narrative: This 43-year-old male who is morbidly obese and recently underwent gastric bypass surgery at [facility] presents for evaluation of severe right wrist pain. He has tenderness with mild warmth and redness overlying the right distal radius and ulna and proximal wrist area. Pulses are brisk and equal. Clinically I suspected that he has gout. He has a normal white count and hemoglobin. Electrolytes are normal the exception of a mildly elevated creatinine at 1.37. His uric acid is elevated At 12.7 and sedimentation rate is greater than 130. Xray was reviewed by radiology and is negative for acute findings. Due to the fact that he has a gastric bypass patient he cannot be placed on prednisone or NSAIDS. He will be discharged home with an additional percocet and Rx for percocet and colchicine. OAR[facility] was reviewed and he had Rx for 5 percocet on 05/31/23 from [facility] Medical Records Medical records narrative: The [address] [address] XRay Report Signed Patient: SHERMAN THOMPSON MR#: [id number] : 1980 Acct:[id number] Age/Sex: 43 / M ADM Date: 06/08/23 Loc: ER Attending Dr: Ordering Physician: López Carlos Date of Service: 06/08/23 Procedure(s): XR wrist RT 2V Accession Number(s): [id number] cc: [facility] ; López Carlos~ The [address] [address] Patient Name: SHERMAN THOMPSON MRN: [id number] date: 1980 Sex: M Assigned Patient Location: ED.MAIN Current Patient Location: ED.MAIN Accession/Order Number: [id number] Exam Date: 06/08/2023 22:00 Report Date: 06/08/2023 22:29 At the request of: LÓPEZ CARLOS Procedure: XR wrist RT 2V EXAM: XR wrist RT 2V HISTORY: wrist pain COMPARISON: None. FINDINGS/IMPRESSION: 1. No acute fracture or dislocation 2. Scapholunate and lunotriquetral intervals are intact. 3. No acute fracture or dislocation. 4. Mild ulnar negative variance. Lab Data Labs: Lab Results 06/08/23 Range/Units 22:12 WBC 7.5 (4.0-11.0) 10^3/uL RBC 3.90 L (4.70-6.10) 10^6/uL Hgb 10.8 L (14.0-18.0) g/dL Hct 36.5 L (42.0-54.0) % MCV 93.6 (80.0-94.0) fL MCH 27.7 (25.9-34.0) pg MCHC 29.6 L (29.9-35.2) g/dL RDW 15.7 H (11.0-15.0) % Plt Count 191 (150-450) 10^3/uL MPV 11.3 (9.5-13.5) fL Neut % (Auto) 77.6 H (43.0-75.0) % Lymph % (Auto) 9.7 L (20.5-60.0) % Newton % (Auto) 10.6 (1.7-12.0) % Eos % (Auto) 1.3 (0.9-7.0) % Baso % (Auto) 0.3 (0.2-2.0) % Neut # (Auto) 5.9 (1.4-6.5) 10^3/uL Lymph # (Auto) 0.7 L (1.2-3.8) 10^3/uL Newton # (Auto) 0.8 (0.3-0.8) 10^3/uL Eos # (Auto) 0.1 (0.0-0.7) 10^3/uL Baso # (Auto) 0.0 (0.0-0.1) 10^3/uL Abs Immat Gran (auto) 0.04 H (0.00-0.03) 10^3/uL Imm/Tot Granulo (auto) 0.5 (0.0-0.5) % ESR >130 H (<=15) mm/hr Sodium 142 (136-145) mmol/L Potassium 3.2 L (3.5-5.1) mmol/L Chloride 100 (98-107) mmol/L Carbon Dioxide 34.8 H (21.0-32.0) mmol/L Anion Gap 10.4 BUN 12.0 (7.0-18.0) mg/dL Creatinine 1.37 H (0.70-1.30) mg/dL Est GFR ( Amer) >60 (>=60) Est GFR (Non-Af Amer) 56 L (>=60) BUN/Creatinine Ratio 8.8 Glucose 99 (74-106) mg/dL Uric Acid 12.7 H (3.5-7.2) mg/dL Calcium 8.8 (8.5-10.1) mg/dL Total Bilirubin 1.9 H (0.2-1.0) mg/dL AST 15 (15-37) U/L ALT 25 (16-63) U/L Alkaline Phosphatase 46 (46-116) U/L Total Protein 8.4 H (6.4-8.2) g/dL Albumin 3.2 L (3.4-5.0) g/dL Globulin 5.2 g/dL Albumin/Globulin Ratio 0.6 Discharge Plan Discharge Chief Complaint: Extremity Injury, Upper Clinical Impression: Acute gouty arthritis Patient Disposition: Home, Self-Care Time of Disposition Decision: 22:54 Condition: Good Prescriptions / Home Meds: No Action levothyroxine [Euthyrox] 125 mcg tablet 125 mcg PO DAILY hydrocodone-acetaminophen 5-325 mg tablet 1 tab PO Q12H spironolactone 25 mg tablet 25 mg PO TID torsemide 100 mg tablet 100 mg PO DAILY calcium carbonate [Tums] 200 mg calcium (500 mg) tablet,chewable 200 mg PO DAILY tramadol 50 mg tablet 25 mg PO Q6H PRN (Reason: pain) urea 20 % cream 1 applic topical DAILY PRN (Reason: dry skin) lidocaine HCl [Aspercreme (lidocaine HCl)] 4 % cream 1 applic topical Q8H PRN (Reason: back pain) baclofen 10 mg tablet 5 mg PO Q8H cyanocobalamin (vitamin B-12) 1,000 mcg tablet 1,000 mcg PO DAILY famotidine 40 mg tablet 40 mg PO DAILY ferrous sulfate [FeroSul] 325 mg (65 mg iron) tablet 325 mg PO DAILY acetaminophen 325 mg tablet 650 mg PO Q4H PRN (Reason: pain) albuterol sulfate 0.63 mg/3 mL solution for nebulization 0.833 mg inhalation Q4H PRN (Reason: shortness of breath or wheezing) diphenhydramine HCl [Banophen] 25 mg tablet 50 mg PO Q6H PRN (Reason: itching) guaifenesin [Chest Congestion Relief] 100 mg/5 mL liquid 400 mg PO Q4H PRN (Reason: cough) hydrocortisone 1 % cream 1 applic topical QID PRN (Reason: itching) nystatin [Nyamyc] 100,000 unit/gram powder 1 applic topical BID ondansetron HCl 4 mg tablet 4 mg PO Q4H PRN (Reason: nausea and vomiting) Rx Instructions: give 1st dose 30min before emetogenic chemo prednisone 10 mg tablets,dose pack 10 mg PO DAILY Qty: 39 0RF Rx Instructions: 6 PO daily x 3 days, then 4 PO daily x 3 days, then 2 PO daily x 3 days, then 1 PO daily x 3 days famotidine [Pepcid] 40 mg tablet 40 mg PO DAILY Qty: 30 0RF Instructions: Low Purine Diet (ED), Gout (ED) Stand Alone Forms: Portal Instructions Referrals: [facility] [Primary Care Provider] - 1 week
--- OUTSIDE RECORDS SUMMARY | 2023-06-08 21:49 | XMS_ITS | CCD ---
Author Name Unknown Address [address] [facility] [address] [place] [address] Organization [facility] Care Team Providers Care Medical Biller/Coder Name Role Phone Unavailable Primary Care Provider UnavailSHYLA Toth Attending Unavailable SHYLA BURNETT Attending Unavailable CorbyKishor baum PA-C Primary Care Provider Kishor Snyder Attending Unavailable Corby, Kishor Primary Care Unavailable Corby, Kishor Admitting Unavailable RUPESH NOVA Attending Unavailable SILVER NOVAE Attending Unavailable RUPESH NOVA Attending Unavailable JO HENSON Referring Unavailable CLARENCE, DAYDAY Attending Unavailable CLARENCE, DAYDAY Referring Unavailable JO HENSON Referring Unavailable CORBY, [facility] Primary Care Unavailable AMINIAN, ALI Referring Unavailable CORBY, [facility] Primary Care Unavailable AMINIAN, ALI Referring Unavailable CORBY, [facility] Primary Care Unavailable ZAHRAA NOVAYSE Attending Unavailable CORBY, [facility] Primary Care Unavailable CORBY, [facility] Primary Care Unavailable AMINIAN, ALI Referring Unavailable CORBY, [facility] Primary Care Unavailable AMINIAN, ALI Referring Unavailable JOMAR GILLESPIE Attending Unavailable AVTAR, RUPESH Attending Unavailable AMINIAN, ALI Attending Unavailable JO HENSON Referring Unavailable AMINIAN, ALI Admitting Unavailable AMINIAN, ALI Attending Unavailable JO HENSON Attending Unavailable Allergies Allergy Classification Reported Allergen(s) Allergy Type Date of Onset Reaction(s) Facility (17 sources) Lactose; Translations: [LACTOSE] Drug Allergy 3 Other: See Comments [facility] Work Phone: (17 sources) Sulfonamides (Antibiotic); Translations: [SULFA (SULFONAMIDE ANTIBIOTICS)] Drug Allergy 3 Itching [facility] Work Phone: (17 sources) Vancomycin; Translations: [VANCOMYCIN] Drug Allergy 3 Itching [facility] Work Phone: (6 sources) cow milk allergenic extract; Translations: [MILK] Drug Allergy 4 Unknown [facility] Medications Current Medications Medication Drug Class(es) Dates Sig (Normalized) Sig (Original) 0.6 ml enoxaparin sodium 100 mg/ml prefilled syringe (5 sources) Low Molecular Weight Heparin Start: 05-31-2023 End: 06-28-2023 inject 0.6 mL by subcutaneous injection twice daily enoxaparin (LOVENOX) 60 mg/0.6 mL syrg Inject 0.6 mL subcutaneously two times a day for 28 days. 33.6 mL 0 05/31/2023 06/28/2023 Active Comment on above: Inject 0.6 mL subcut aneously two times a day for 28 days. oxyCODONE hydrochloride 5 mg oral tablet (5 sources) Opioid Agonist Start: 05-31-2023 End: 05-31-2024 oxyCODONE IR (ROXICODONE) 5 mg immediate release tablet Indications: Acute post-operative pain Take 1 tablet by mouth every 6 hours as needed for pain for up to 5 doses. 5 tablet 0 05/31/2023 05/31/2024 Active Comment on above: Take 1 tablet by joe th every 6 hours as needed for pain for up to 5 doses. pantoprazole 40 mg delayed release oral tablet (5 sources) Proton Pump Inhibitor Start: 05-31-2023 End: 05-30-2024 take 1 tablet by mouth once daily pantoprazole DR (PROTONIX) 40 mg tablet Take 1 tablet by mouth once daily. 90 tablet 3 05/31/2023 05/30/2024 Active Comment on above: Take 1 tablet by joe th once daily. Completed/Discontinued Medications Medication Drug Class(es) Dates Sig (Normalized) Sig (Original) cholecalciferol 1.25 mg oral capsule (5 sources) Vitamin D Start: 04-21-2023 take 1 capsule by mouth every week cholecalciferol, Vitamin D3, (VITAMIN D3) 1,250 mcg (50,000 unit) cap capsule Indications: vitamin D deficiency Take 1 capsule by mouth one time a week. Afterwards take 2000 units over the counter daily 8 capsule 0 04/21/2023 Active Comment on above: Take 1 capsule by mo [facility] one time a week. Afterwards take 2000 units over the counter daily famotidine 40 mg oral tablet (10 sources) Histamine-2 Receptor Antagonist Start: 11-25-2022 famotidine (PEPCID) 40 mg tablet levothyroxine sodium 0.125 mg oral tablet (15 sources) l-Thyroxine Start: 11-05-2022 levothyroxine (SYNTHROID) 125 mcg tablet ondansetron 4 mg oral tablet (5 sources) Serotonin-3 Receptor Antagonist Start: 05-31-2023 take 1 tablet by mouth every six hours as needed ondansetron (ZOFRAN) 4 mg tablet Take 1 tablet by mouth every 6 hours as needed for nausea/vomiting for up to 40 doses. 20 tablet 1 05/31/2023 Active Comment on above: Take 1 tablet by [facility] every 6 hours as needed for nausea/vomiting for up to 40 doses. spironolactone 25 mg oral tablet (15 sources) Aldosterone Antagonist Start: 10-25-2022 take 1 tablet by mouth once daily spironolactone (ALDACTONE) 25 mg tablet Take 25 mg by mouth once daily. 0 10/25/2022 Active Comment on above: Take 25 mg by mouth once daily. torsemide 100 mg oral tablet (15 sources) Loop Diuretic Start: 11-07-2022 take 1 tablet by mouth once daily torsemide (DEMADEX) 100 mg tablet Take 100 mg by mouth once daily. 0 11/07/2022 Active Comment on above: Take 100 mg by mouth once daily. traMADol hydrochloride 50 mg oral tablet (10 sources) Opioid Agonist Start: 10-26-2022 traMADol (ULTRAM) 50 mg tablet Walker misc (5 sources) Start: 05-31-2023 Walker misc 1 Units as needed. 1 Each 0 05/31/2023 Active Comment on above: 1 Units as needed. Problems Active Problems Problem Classification Problem Date Documented Date Episodic/Chronic Complications of surgical procedures or medical care (5 sources) Pulmonary insufficiency following surgery; Translations: [Other postprocedural complications and disorders of respiratory system, not elsewhere classified] Onset: 05-27-2023 05-27-2023 Episodic Esophageal disorders (16 sources) Gastroesophageal reflux disease without esophagitis; Translations: [Gastro-esophageal reflux disease without esophagitis] Onset: 11-26-2022 11-26-2022 Chronic Fluid and electrolyte disorders (10 sources) Compensated respiratory acidosis; Translations: [Compensated respiratory acidosis] Onset: 05-26-2023 05-26-2023 Episodic Other aftercare (1 source) Surgical follow-up; Translations: [Encounter for other specified surgical aftercare] 06-01-2023 Episodic Other diseases of veins and lymphatics (20 sources) Lymphedema; Translations: [Lymphedema, not elsewhere classified] Onset: 10-25-2022 Chronic Other diseases of veins and lymphatics (2 sources) Lymphedema, not elsewhere classified; Translations: [Lymphedema, not elsewhere classified] Onset: 05-20-2023 Chronic Other lower respiratory disease (5 sources) Hypoxia; Translations: [Hypoxemia] Onset: 05-25-2023 05-25-2023 Episodic Other lower respiratory disease (1 source) Hypoxemia; Translations: [Hypoxia] Onset: 05-25-2023 Episodic Other nervous system disorders (5 sources) Postoperative pain ; Translations: [Other acute postprocedural pain] Onset: 05-25-2023 05-25-2023 Episodic Other nervous system disorders (1 source) Other acute postprocedural pain; Translations: [Acute post-operative pain] Onset: 05-23-2023 Episodic Other nutritional; endocrine; and metabolic disorders (10 sources) Morbid obesity; Translations: [Morbid (severe) obesity due to excess calories] Onset: 10-25-2022 Chronic Other nutritional; endocrine; and metabolic disorders (20 sources) Body mass index 40+ - severely obese; Translations: [Body mass index (BMI) 70 or greater, adult] Onset: 11-26-2022 11-03-2022 Chronic Other nutritional; endocrine; and metabolic disorders (1 source) Psychosomatic factor in physical condition; Translations: [Morbid (severe) obesity due to excess calories] 01-24-2023 Chronic Other nutritional; endocrine; and metabolic disorders (5 sources) Alveolar hypoventilation; Translations: [Morbid (severe) obesity with alveolar hypoventilation] Onset: 05-25-2023 05-25-2023 Chronic Other nutritional; endocrine; and metabolic disorders (1 source) Morbid (severe) obesity with alveolar hypoventilation; Translations: [Obesity hypoventilation syndrome (HCC)] Onset: 05-25-2023 Chronic Other nutritional; endocrine; and metabolic disorders (1 source) Body mass index (BMI) 70 or greater, adult; Translations: [BMI 70 and over, adult (HCC)] Onset: 11-26-2022 Chronic Other nutritional; endocrine; and metabolic disorders (1 source) Morbid (severe) obesity due to excess calories; Translations: [Morbid obesity (HCC)] Onset: 05-25-2023 Chronic Other screening for suspected conditions (not mental disorders or infectious disease) (8 sources) Serum creatinine raised; Translations: [Other specified abnormal findings of blood chemistry] Onset: 04-13-2023 04-13-2023 Episodic Residual codes; unclassified (16 sources) Obstructive sleep apnea syndrome; Translations: [Obstructive sleep apnea (adult) (pediatric)] Onset: 11-26-2022 11-26-2022 Chronic Residual codes; unclassified (1 source) Obstructive sleep apnea (adult) (pediatric); Translations: [ISI (obstructive sleep apnea)] Onset: 05-25-2023 Chronic Respiratory failure; insufficiency; arrest (adult) (7 sources) Acute hypoxemic and hypercapnic respiratory failure; Translations: [Acute respiratory failure with hypoxia] Onset: 05-25-2023 05-25-2023 Episodic Thyroid disorders (17 sources) Acquired hypothyroidism; Translations: [Hypothyroidism, unspecified] Onset: 11-26-2022 11-26-2022 Chronic Past or Other Problems Problem Classification Problem Date Documented Da te Episodic/Chronic Administrative/social admission (20 sources) Reduced mobility; Translations: [Other reduced mobility] Onset: 10-25-2022 Episodic Results Test Name Value Interpretation Reference Range Facility [facility] 06-01-2023 CNPN Telephone (PODCCP) SHERMAN MARIE ([id number]) 1980 M Date Time Provider Department 06/01/23 JEFFERSON LEONE During your visit today, we recorded the following information about you: Jefferson Leone RN 06/01/2023 1:57 PM Signed PATIENT INFORMATION Record ID: [id number] Patient Name: [facility]: [facility] [place]: [facility] [place] Attending: Michael Enciso Center: General Surgery INSTRUCTIONS SN to remind patient of appointment date, time, location All Clear All Clear SURVEY INFORMATION Medical/Nurse Financial Compliance Officer: Jefferson Leone 1. Your discharge instructions are important in guiding you through the recovery process. Is there anything I could help you clarify on your discharge instructions? (Standard Question) No, All clear 2. Do you have a follow up appointment related to your hospital stay scheduled within the next 30 days? (Standard Question) Yes 3. Do you have any of the following new symptoms related to your wound?; Creamy white or foul smelling drainage Increasing redness or swelling, Increasing pain (Red Flag Question) No, no concerns at all 4. Are you tolerating your pain with your current medication? (Red Flag Question) Yes, I can tolerate my pain 5. Many patients have concerns about their medications once they are home. Do you have any questions about getting or taking your medications? (Standard Question) No 6. Do you have any new or different symptoms? (Standard Question) No Allergies As of Date: 06/01/2023 Noted Allergy Reaction LACTOSE 11/26/2022 14 - Other: See Comments SULFA (SULFONAMIDE ANTIBIOTICS) 11/26/2022 9 - Itching VANCOMYCIN 11/26/2022 9 - Itching MILK 05/27/2023 16 - Unknown Date Reviewed: 05/30/2023 Reviewed by: Melita Flores, MEDHAT - Fully Assessed Reason for Visit: Follow Up Phone Call [[id number]] Cmt: All Clear Prescriptions as of 06/01/2023 - enoxaparin (LOVENOX) 60 mg/0.6 mL syrg Inject 0.6 mL subcutaneously two times a day for 28 days. - ondansetron (ZOFRAN) 4 mg tablet Take 1 tablet by mouth every 6 hours as needed for nausea/vomiting for up to 40 doses. - oxyCODONE IR (ROXICODONE) 5 mg immediate release tablet Take 1 tablet by mouth every 6 hours as needed for pain for up to 5 doses. - pantoprazole DR (PROTONIX) 40 mg tablet Take 1 tablet by mouth once daily. - Walker misc 1 Units as needed. - cholecalciferol, Vitamin D3, (VITAMIN D3) 1,250 mcg (50,000 unit) cap capsule Take 1 capsule by mouth one time a week. Afterwards take 2000 units over the counter daily - levothyroxine (SYNTHROID) 125 mcg tablet - torsemide (DEMADEX) 100 mg tablet Take 100 mg by mouth once daily. - spironolactone (ALDACTONE) 25 mg tablet Take 25 mg by mouth once daily. Problem List As Of Date 06/01/2023 Noted Resolved Morbid obesity (HCC) [E66.01] 10/25/2022 Lymphedema [I89.0] 10/25/2022 Limited mobility [Z74.09] 10/25/2022 BMI 70 and over, adult (HCC) [Z68.45] 11/26/2022 Gastroesophageal reflux disease without esophag*11/26/2022 ISI (obstructive sleep apnea) [G47.33] 11/26/2022 Acquired hypothyroidism [E03.9] 11/26/2022 Elevated serum creatinine [R79.89] 04/13/2023 Class 3 severe obesity with serious comorbidity*05/23/2023 05/24/2023 Hypoxia [R09.02] 05/25/2023 Post-op pain [G89.18] 05/25/2023 Obesity hypoventilation syndrome (HCC) [E66.2] 05/25/2023 Acute respiratory failure with hypoxia and hype*05/25/2023 Compensated respiratory acidosis [E87.29] 05/26/2023 Hypervolemia [E87.70] 05/26/2023 Acute postoperative respiratory insufficiency [*05/27/2023 Encounter Status:Closed by JEFFERSON LE[facility]01/[facility] SHERMAN MARIE ([id number]) 1980 M Date Time Provider Department 06/01/23 DOMINICK MONGE During your visit today, we recorded the following information about you: Dominick Monge, RN 06/01/2023 12:10 PM Signed Per patient request, faxed copy of 05/30/23 discharge paperwork and order for walker to Generator Technician: grain elevator worker Brigitte Mejia [phone] Allergies As of Date: 06/01/2023 Noted Allergy Reaction LACTOSE 11/26/2022 14 - Other: See Comments SULFA (SULFONAMIDE ANTIBIOTICS) 11/26/2022 9 - Itching VANCOMYCIN 11/26/2022 9 - Itching MILK 05/27/2023 16 - Unknown Date Reviewed: 05/30/2023 Reviewed by: Melita Flores RN - Fully Assessed Reason for Visit: Filtrose Crusher - Hospital Follow Up [7638] Prescriptions as of 06/01/2023 - enoxaparin (LOVENOX) 60 mg/0.6 mL syrg Inject 0.6 mL subcutaneously two times a day for 28 days. - ondansetron (ZOFRAN) 4 mg tablet Take 1 tablet by mouth every 6 hours as needed for nausea/vomiting for up to 40 doses. - oxyCODONE IR (ROXICODONE) 5 mg immediate release tablet Take 1 tablet by mouth every 6 hours as needed for pain for up to 5 doses. - pantoprazole DR (PROTONIX) 40 mg tablet Take 1 tablet by mouth once daily. - Walker misc 1 Units as needed. - cholecalciferol, Vitamin D3, (VITAMIN D3) 1,250 mcg (50,000 unit) cap capsule Take 1 capsule by mouth one time a week. Afterwards take 2000 units over the counter daily - levothyroxine (SYNTHROID) 125 mcg tablet - torsemide (DEMADEX) 100 mg tablet Take 100 mg by mouth once daily. - spironolactone (ALDACTONE) 25 mg tablet Take 25 mg by mouth once daily. Problem List As Of Date 06/01/2023 Noted Resolved Morbid obesity (HCC) [E66.01] 10/25/2022 Lymphedema [I89.0] 10/25/2022 Limited mobility [Z74.09] 10/25/2022 BMI 70 and over, adult (HCC) [Z68.45] 11/26/2022 Gastroesophageal reflux disease without esophag*11/26/2022 ISI (obstructive sleep apnea) [G47.33] 11/26/2022 Acquired hypothyroidism [E03.9] 11/26/2022 Elevated serum creatinine [R79.89] 04/13/2023 Class 3 severe obesity with serious comorbidity*05/23/2023 05/24/2023 Hypoxia [R09.02] 05/25/2023 Post-op pain [G89.18] 05/25/2023 Obesity hypoventilation syndrome (HCC) [E66.2] 05/25/2023 Acute respiratory failure with hypoxia and hype*05/25/2023 Compensated respiratory acidosis [E87.29] 05/26/2023 Hypervolemia [E87.70] 05/26/2023 Acute postoperative respiratory insufficiency [*05/27/2023 Encounter Status:Closed by DOMINICK MONGE on 06/01/23 [facility] 05-31-2023 CNPN Telephone (GENBMI) SHERMAN MARIE ([id number]) 1980 M Date Time Provider Department 05/31/23 DOMINICK MONGE GENBMI During your visit today, we recorded the following information about you: Dominick Monge, RN 05/31/2023 12:49 PM Addendum BMI SPECIALTY CARE COORDINATION POST-OP TELEPHONE CALL BMI Post Op Telephone Call Pt was called on the first day after discharge. DO YOU HAVE A COPY OF YOUR DISCHARGE INSTRUCTIONS YES Is there anything in your discharge instructions that you do not understand? NO Pain: tolerable. On a scale of 0-10, 0 being not satisfied and 10 being very satisfied, how satisfied were you with your pain management strategy after surgery? 10 ?Patient instructed not to take any narcotic pain medications (such as Roxicodone) within three hours before bedtime as it may cause breathing difficulty. If you are having pain at bedtime you may take Tylenol (liquid form or two extra strength tablets).? Phase 2 full liquid diet: woke up 0930 time of phone call 1100 tolerating diet and pt estimates 0 grams of protein and 8 oz of fluid daily. Feels bloated Patient verbalized understanding of recommended amounts of protein and 64 ounces of clear liquid each day and will work toward daily goal. Patient to continue to sip on fluids throughout the day and to take a water bottle wherever he goes. Incisions: surgical glue intact GI: +flatus Last BM 05/28/23 feels bloated Constipation: The patient is having some constipation that can potentially lead to nausea or worsening nausea. I explained to the patient that we want to have a goal of one bowel movement every third day or at least every other day in the first few months following bariatric surgery. Miralax, Milk of Magnesia works well for this, but also an bnfv-cly-bjrvote supplement/drink (e.g. Smooth Move Tea) also works very well in patients post bariatric surgery. : WNL Medications: NOT taking as prescribed PPI and lovenox Patient discharged home prior to receiving home going medications. This RN phoned Dr. Doris Alberto to request new orders PPI Protonix, lovenox be sent to [facility] close to patient home. Patient states he has a friend that will warehouse order picker medication today and will begin taking. Patient verbalized understanding of importance of and will continue to ambulate around house at least once every hour; blood clot prevention and to continue to use incentive spirometer 10 times every hour while awake. This RN confirmed with Dr. Craig patient to continue taking post op daily dose of diuretic: torsemide (DEMADEX) 100 mg tablet once daily. Patient has scheduled a follow up with PCP in three weeks. 1246 RN phoned patient to confirm fill of post op medications Tania Mckeon MA RN phoned Generator Technician Aury [phone] patient requesting assistance with prescription for walker. ([facility] and [facility] denied coverage) CPAP USE: Yes Remind patient of post op appt. This RN sent message to master scheduler to arrange 06/01/23 post op follow up [place] and 1 mo post op appointment. Reminded patient of how to reach [facility] BMI or their surgeons office. Patient reminded to seek medical attention if they develop chest pain, a sudden onset of shortness of breath or persistent pain in the calf of their legs - BEST TO ALWAYS present to [facility] hospital where you had your surgery Patient verbalized understanding of all advice and instructions given. Dominick Monge RN Allergies As of Date: 05/31/2023 Noted Allergy Reaction LACTOSE 11/26/2022 14 - Other: See Comments SULFA (SULFONAMIDE ANTIBIOTICS) 11/26/2022 9 - Itching VANCOMYCIN 11/26/2022 9 - Itching MILK 05/27/2023 16 - Unknown Date Reviewed: 05/30/2023 Reviewed by: Melita Flores RN - Fully Assessed Reason for Visit: Post Op [174] Prescriptions as of 05/31/2023 - enoxaparin (LOVENOX) 60 mg/0.6 mL syrg Inject 0.6 mL subcutaneously two times a day for 28 days. - ondansetron (ZOFRAN) 4 mg tablet Take 1 tablet by mouth every 6 hours as needed for nausea/vomiting for up to 40 doses. - oxyCODONE IR (ROXICODONE) 5 mg immediate release tablet Take 1 tablet by mouth every 6 hours as needed for pain for up to 5 doses. - pantoprazole DR (PROTONIX) 40 mg tablet Take 1 tablet by mouth once daily. - Walker misc 1 Units as needed. - cholecalciferol, Vitamin D3, (VITAMIN D3) 1,250 mcg (50,000 unit) cap capsule Take 1 capsule by mouth one time a week. Afterwards take 2000 units over the counter daily - levothyroxine (SYNTHROID) 125 mcg tablet - torsemide (DEMADEX) 100 mg tablet Take 100 mg by mouth once daily. - spironolactone (ALDACTONE) 25 mg tablet Take 25 mg by mouth once daily. Problem List As Of Date 05/31/2023 Noted Resolved Morbid obesity (HCC) [E66.01] 10/25/2022 Lymphedema [I89.0] 10/25/2022 Limited mobility [Z74.09] 10/25/2022 BMI 70 and over, a (more content not included)... Normal [facility] Basic metabolic 2000 panelon 05-30-2023 Anion gap [Moles/Vol] 11 mmol/L Normal 9-18 [facility] Comment on above: Order Comment: Speci men Type: BLOOD SPECIMEN Ordering Facility: [facility] Address: [address] [place] [address] Performed By: #### 2 4323-8, , 2776-04 #### [facility] CLIA [id number] [address] [place] [address] [place] Calcium [Mass/Vol] 9.1 mg/dL Normal 8.5-10.2 [facility] Comment on above: Order Comment: Speci men Type: BLOOD SPECIMEN Ordering Facility: [facility] Address: [address] [place] [address] Performed By: #### 2 4323-8, , 2776-04 #### [facility] CLIA [id number] [address] [place] [address] [place] Chloride [Moles/Vol] 91 mmol/L Low 97-105 [facility] Comment on above: Order Comment: Speci men Type: BLOOD SPECIMEN Ordering Facility: [facility] Address: [address] [place] [address] Performed By: #### 2 4323-8, , 2776-04 #### [facility] CLIA [id number] [address] [place] [address] [place] CO2 [Moles/Vol] 36 mmol/L High 22-30 [facility] Comment on above: Order Comment: Speci men Type: BLOOD SPECIMEN Ordering Facility: [facility] Address: [address] [place], [place] [address] Performed By: #### 2 4323-8, , 2776-04 #### [facility] CLIA [id number] [address] [place], [place] [id number] [place] Creatinine [Mass/Vol] 1.37 mg/dL High 0.73-1.22 [facility] Comment on above: Order Comment: Van maier Type: BLOOD SPECIMEN Ordering Facility: [facility] Address: [address] [place] [address] Performed By: #### 2 4323-8, 37391-4, 2777-1 #### [facility] CLIA [id number] [address] [place] [address] [place] Creatinine and Glomerular filtration rate.predicted panel (S/P/Bld) 65 mL/min/1.73m??? Normal >=60 [facility] Comment on above: Order Comment: Van maier Type: BLOOD SPECIMEN Ordering Facility: [facility] Address: [address] [place] [address] Result Comment: Hiral mated Glomerular Filtration Rate (eGFR) is calculated using the 2020 CKD-EPI creatinine equation. This equation utilizes serum creatinine, sex, and age as parameters. The creatinine assay has traceable calibration to isotope dilution-mass spectrometry. Refer to KDIGO guidelines for clinical interpretation. In patients with unstable renal function, e.g. those with acute kidney injury, the eGFR may not accurately reflect actual GFR. Performed By: #### 2 4323-8, 44289-1, 2777-1 #### [facility] CLIA [id number] [address] [place] [address] [place] Glucose [Mass/Vol] 77 mg/dL Normal 74-99 [facility] Comment on above: Order Comment: Van maier Type: BLOOD SPECIMEN Ordering Facility: [facility] Address: [address] [place] [address] Result Comment: The [place] [employer] (ADA) provides guidance for cutoff values for fasting glucose and random glucose. The ADA defines fasting as no caloric intake for at least 8 hours. Fasting plasma glucose results between 100 to 125 mg/dL indicate increased risk for diabetes (prediabetes). Fasting plasma glucose results greater than or equal to 126 mg/dL meet the criteria for diagnosis of diabetes. In the absence of unequivocal hyperglycemia, results should be confirmed by repeat testing. In a patient with classic symptoms of hyperglycemia or hyperglycemic crisis, random plasma glucose results greater than or equal to 200 mg/dL meet the criteria for diagnosis of diabetes. Reference: Standards of Medical Care in Diabetes 2016, [place] [employer]. Diabetes Care. 2016.39(Suppl 1). Performed By: #### 2 4323-8, 14187-3, 2776-04 #### [facility] CLIA [id number] [address] [place] [address] [place] Potassium [Moles/Vol] 3.7 mmol/L Normal 3.7-5.1 [facility] Comment on above: Order Comment: Speci men Type: BLOOD SPECIMEN Ordering Facility: [facility] Address: [address] [place] [address] Performed By: #### 2 4323-8, , 2776-04 #### [facility] CLIA [id number] [address] [place] [address] [place] Sodium [Moles/Vol] 138 mmol/L Normal 136-144 [facility] Comment on above: Order Comment: Speci men Type: BLOOD SPECIMEN Ordering Facility: [facility] Address: [address] [place] [address] Performed By: #### 2 4323-8, , 2776-04 #### [facility] CLIA [id number] [address] [place] [address] [place] Urea nitrogen [Mass/Vol] 17 mg/dL Normal 9-24 [facility] Comment on above: Order Comment: Speci men Type: BLOOD SPECIMEN Ordering Facility: [facility] Address: [address] [place] [address] Performed By: #### 2 4323-8, , 2776-04 #### [facility] CLIA [id number] [address] [place], [place] [id number] [place] CBC panel Auto (Bld)on 05-30 Erythrocyte distribution width (RBC) [Ratio] 15.0 % Normal 11.5-15.0 [facility] Comment on above: Order Comment: Speci men Type: BLOOD SPECIMEN Ordering Facility: [facility] Address: [address] [place], [place] [address] Performed By: #### 2 4323-8, , 2776-04 #### [facility] CLIA [id number] [address] [place], [place] [id number] [place] Hematocrit (Bld) [Volume fraction] 38.2 % Low 39.0-51.0 [facility] Comment on above: Order Comment: Speci men Type: BLOOD SPECIMEN Ordering Facility: [facility] Address: [address] [place] [address] Performed By: #### 2 4323-8, , 2776-04 #### [facility] CLIA [id number] [address] [place] [address] [place] Hemoglobin (Bld) [Mass/Vol] 11.4 g/dL Low 13.0-17.0 [facility] Comment on above: Order Comment: Speci men Type: BLOOD SPECIMEN Ordering Facility: [facility] Address: [address] [place] [address] Performed By: #### 2 4323-8, , 2776-04 #### [facility] CLIA [id number] [address] [place] [address] [place] MCH (RBC) [Entitic mass] 27.6 pg Normal 26.0-34.0 [facility] Comment on above: Order Comment: Speci men Type: BLOOD SPECIMEN Ordering Facility: [facility] Address: [address] [place], [place] [address] Performed By: #### 2 4323-8, , 2776-04 #### [facility] CLIA [id number] [address] [place] [address] [place] MCHC (RBC) [Mass/Vol] 29.8 g/dL Low 30.5-36.0 [facility] Comment on above: Order Comment: Speci men Type: BLOOD SPECIMEN Ordering Facility: [facility] Address: [address] [place], [place] [address] Performed By: #### 2 4323-8, , 2776-04 #### [facility] CLIA [id number] [address] [place] [address] [place] MCV (RBC) [Entitic vol] 92.5 fL Normal 80.0-100.0 [facility] Comment on above: Order Comment: Speci men Type: BLOOD SPECIMEN Ordering Facility: [facility] Address: [address] [place] [address] Performed By: #### 2 4323-8, , 2776-04 #### [facility] CLIA [id number] [address] [place] [address] [place] Nucleated RBC (Bld) [#/Vol] 10*3/uL Normal <0.01 [facility] Comment on above: Order Comment: Speci men Type: BLOOD SPECIMEN Ordering Facility: [facility] Address: [address] [place] [address] Performed By: #### 2 4323-8, , 2776-04 #### [facility] CLIA [id number] [address] [place] [address] [place] Platelet mean volume (Bld) [Entitic vol] 11.5 fL Normal 9.0-12.7 [facility] Comment on above: Order Comment: Speci men Type: BLOOD SPECIMEN Ordering Facility: [facility] Address: [address] [place] [address] Performed By: #### 2 4323-8, , 2776-04 #### [facility] CLIA [id number] [address] [place] [address] [place] Platelets (Bld) [#/Vol] 193 10*3/uL Normal 150-400 [facility] Comment on above: Order Comment: Speci men Type: BLOOD SPECIMEN Ordering Facility: [facility] Address: [address] [place], [place] [address] Performed By: #### 2 4323-8, 45935-5, 2777-1 #### [facility] CLIA [id number] [address] [place], [place] [address] [place] RBC (Bld) [#/Vol] 4.13 10*6/uL Low 4.20-6.00 [facility] Comment on above: Order Comment: Speci men Type: BLOOD SPECIMEN Ordering Facility: [facility] Address: [address] [place] [address] Performed By: #### 2 4323-8, 79833-1, 2777-1 #### [facility] CLIA [id number] [address] [place] [address] [place] WBC (Bld) [#/Vol] 4.88 10*3/uL Normal 3.70-11.00 [facility] Comment on above: Order Comment: Speci men Type: BLOOD SPECIMEN Ordering Facility: [facility] Address: [address] [place], [place] [address] Performed By: #### 2 4323-8, 28406-3, 2777-1 #### [facility] CLIA [id number] [address] [place] [address] [place] CNCOon 05-30-2023 CNCO Letter Text Normal [facility] CNDSon 05-30-2023 CNDS HNO ID: [id number] Author: MICHAEL ENCISO MD Service: General Surgery Author Type: Physician Type: Discharge Summary Filed: 06/06/2023 09:39 Note Text: DISCHARGE SUMMARY PATIENT NAME: Sherman Marie ADMISSION DATE: 05/23/2023 DISCHARGE DATE: 05/30/2023 Attending: Michael Enciso MD Code Status: Not on file Highest Readmission Risk Score: 18 The 30 day readmissions risk score is derived from an internally validated risk model which evaluates patient level characteristics, utilization history, medication orders and lab results up until the day of discharge. Patients with a score of 40 or above are considered highest risk for readmission. Specific patient level drivers will be listed at the bottom of the summary. Reason for Hospitalization: Morbid obesity Principal Problem (Resolved): Class 3 severe obesity with serious comorbidity and body mass index (BMI) greater than or equal to 70 in adult, unspecified obesity type (HCC) (POA: Yes) Active Problems: Morbid obesity (HCC) (POA: Yes) Lymphedema (POA: Yes) Limited mobility (POA: Yes) BMI 70 and over, adult (HCC) (POA: Yes) Gastroesophageal reflux disease without esophagitis (POA: Yes) ISI (obstructive sleep apnea) (POA: Yes) Acquired hypothyroidism (POA: Yes) Elevated serum creatinine (POA: Yes) Hypoxia (POA: Unknown) Post-op pain (POA: Unknown) Obesity hypoventilation syndrome (HCC) (POA: Unknown) Acute respiratory failure with hypoxia and hypercapnia (HCC) (POA: Unknown) Compensated respiratory acidosis (POA: Unknown) Hypervolemia (POA: Unknown) Acute postoperative respiratory insufficiency (POA: Unknown) Operations During Hospitalization: Procedure(s) and Anesthesia Type: * LAPAROSCOPIC GASTRIC RESTRICTIVE SURG W/ BYPASS AND FARRAH-EN-Y 150CM OR LESS - General Procedures During Hospitalization: IV access. Intubation for surgery. General anesthesia administration. BiPAP. Echocardiogram Hospital Course: Operative Complications: No Was this a readmission after discharge for bariatric surgery: No Patient completed the preoperative evaluation for bariatric surgery and was taken to the operating room on 05/24/2023 where he underwent LRYGB and was admitted to the regular nursing floor. On the night of POD0, patient became hypoxic on CPAP and was initiated on BiPAP, given diuresis, and transferred to the SICU. He was eventually weaned off BiPAP and transferred back to the [facility]. Patient was advanced to a bariatric clear liquid diet on post-operative day # 2 and tolerated this well. Kidd catheter was discontinued on postoperative day #5 The patient was transitioned from intravenous to oral pain medication with adequate pain control at the time of discharge. Pain Control: Adequate management. Transitions of Care Critical Issues: NEW BASELINE FOR PATIENT: Home supplemental oxygen LABS AND PROCEDURES PENDING AT DISCHARGE: No pending results. Consulting Teams During Hospitalization: - Critical care - Pulmonology Treatment Team: Primary Service: GENS BARIATRIC SURGERY Attending: Michael Enciso MD Patient Condition at Discharge: Stable Discharge Disposition: Home with Home Health Information Provided to Patient: Patient given copy of Discharge Instructions No special instructions. DIET: Bariatric Phase 2 diet: Full liquid, carbohydrate controlled ACTIVITY: Lifting is restricted to: <10lbs for 6 weeks WOUND/SURGICAL SITE CARE: Leave open to air ALLERGIES Allergen Reactions Lactose Other: See Comments Sulfa (Sulfonamide * Itching Vancomycin Itching Milk Unknown Discharge Medications: Medication List START taking these medications enoxaparin 60 mg/0.6 mL Syrg Commonly known as: LOVENOX Inject 0.6 mL subcutaneously two times a day for 28 days. ondansetron 4 mg tablet Commonly known as: ZOFRAN Take 1 tablet by mouth every 6 hours as needed for nausea/vomiting for up to 40 doses. oxyCODONE IR 5 mg immediate release tablet Commonly known as: ROXICODONE Take 1 tablet by mouth every 6 hours as needed for pain for up to [address] 40 mg tablet Commonly known as: PROTONIX Take 1 tablet by mouth once daily. Walker Misc 1 Units as needed. CONTINUE taking these medications cholecalciferol (Vitamin D3) 1,250 mcg (50,000 unit) Cap capsule Commonly known as: VITAMIN D3 Take 1 capsule by mouth one time a week. Afterwards take 2000 units over the counter daily levothyroxine 125 mcg tablet Commonly known as: SYNTHROID spironolactone 25 mg tablet Commonly known as: ALDACTONE torsemide 100 mg tablet Commonly known as: DEMADEX STOP taking these medications famotidine 40 mg tablet Commonly known as: PEPCID traMADol 50 mg tablet Commonly known as: ULTRAM Where to Get Your Medications These medications were sent to [facility] [address] [place] [address] Hours: Tuesday-Tuesday 7am-8pm, Tuesday, Tuesday and Holidays (more content not included)... [facility] Magnesium SerPl-mCncon 05-30 Magnesium [Mass/Vol] 2.0 mg/dL Normal 1.7-2.3 [facility] Comment on above: Order Comment: Speci men Type: BLOOD SPECIMEN Ordering Facility: [facility] Address: [address] [place], [place] [address] Performed By: #### 2 0863-8, 26915-5, 2777-1 #### [facility] CLIA [id number] [address] [place] [address] NUTRITIONon 05-30-2023 NUTRITION HNO ID: [id number] Author: RUTHIE BAER DTR Service: Nutrition Therapy Author Type: Strategic Sourcing Specialist Type: Nutrition Filed: 05/30/2023 14:40 Note Text: NUTRITION THERAPY DOCK COORDINATOR NOTE SERVICE DATE: 05/30/2023 SERVICE TIME: 1100 Visit Type: Follow-Up Evaluation Goals Met: Met. Patient is meeting protein and fluid goals for phase 2 bariatric diet. Will continue to monitor. Plan of Care: Supplements: (Patient is drinking 32 gm/serving OWYN supplements he brought from home.) Follow-Up: Tech Reassessment Nursing Admission Assessment Malnutrition Score: 0 Nutrition Intake: Diet Orders (From admission, onward) Start Ordered 05/26/231914 DIET BARIATRIC START NOW Question Answer Comment Bariatric PHASE 2 Feeding instructions for nursing Dairy free 05/26/231911 Average intake over: Unable to determine (Patient is on a phase 2 bariatric diet. He is getting most of his nutrition through protient shakes.) Average Supplement Intake (kcal): 600 kcal Average Supplement Intake (gm): 96 gm Average supplement intake over: 3 days Appetite: Fair GI Symptoms: None Anthropometrics: Weight: (!) 260.3 kg (573 lb 12.8 oz) Body mass index is 77.82 kg/m?. Loss of lean body mass/visual muscle wasting: No Weight Change: Decreased MNT Billing: $ Routine Care : 1-15 minutes SIGNATURE: Ruthie Baer DTR PATIENT NAME: Sherman Marie DATE: May 30, 2023 TIME: 2:40 PM [facility] THERAPY NTon 05-30-2023 THERAPY NT HNO ID: [id number] Author: OLGA ZEE, PT Service: ? Author Type: Physical Therapist Type: Therapy (PT/OT/Speech/Resp) Filed: 05/30/2023 13:53 Note Text: Physical Therapy Treatment Summary SERVICE DATE: 05/30/2023 SERVICE TIME: 1330 to 1338 ROOM: [place] [address] PT 6 Clicks Score: 18 DISCHARGE RECOMMENDATIONS Outpatient Physical Therapy Recommended Discharge Disposition Comments: Anticipate would be appropriate for OP PT if unable to find HHC in patient's area. Did not assess mobility this date, although patient with NSG 6 clicks of 23. Recommended Discharge Equipment: Coil Inspector, Wheeled Walker (bariatric) ASSESSMENT Response to Therapy Interventions: Good Participation in Activities, On-Track to Achieve Discharge Goals Patient reports getting ready for d/c today. Declines mobility but reports he has been ambulating in hallways and getting in/out of bed with little difficulty. Reviewed precautions and recommended equipment. Patient requesting walker for home use. PRECAUTIONS Abdominal, Lines/Tubes/Drains, Fall Risk CURRENT HOSPITAL COURSE A 43 y/o male s/p planned sleeve gastrectomy on 05/24/23. . Pulmonology was consulted for acute hypercarbia requiring BIPAP in the SICU and post-op respiratory optimization. Relevant Past Medical History: PMH morbid obesity BMI 86.4, ISI on CPAP, and lymphedema HOME LIVING Patient Lives With: Self/Alone Assistance Available: Bomb Technician Entry To Home: No Stairs Tub/Shower Type: walk in shower with grab bars Laundry: home health aide assists PRIOR FUNCTIONAL LEVEL Required Assistance Assistance Required With: Cleaning, Laundry, Shopping, Transportation, Self Care, Meals Pt reports that he was receiving help from a home health aide who assisted with dressing, bathing, cooking, cleaning etc. INSTRUCTIONAL LEADER SUBJECTIVE I've been walking in the hallways THERAPY DIAGNOSIS Reduced mobility-other TREATMENT INTERVENTIONS Therapeutic Activity (33943) Timed Code Treatment (minutes): 8 Skilled Treatment Time (minutes): 8 TRAINING AND EDUCATION PROVIDED THERAPEUTIC SKILLS USED FUNCTIONAL STATUS Bed Mobility Rolling: Contact Guard Assistance Supine To Sit: Contact Guard Assistance Scooting: Contact Guard Assistance Transfers Sit To Stand: Contact Guard Assistance Stand To Sit: Contact Guard Assistance Bed to Chair Contact Guard Assistance Bed To Chair Transfer Type: Stepping Bed To Chair Transfer Equipment: Wheeled Walker (ke walker) Gait Contact Guard Assistance Gait Device: Wheeled Walker, Other: See Comment (ke - walker) Gait Distance (feet): 250 Stairs GOALS Patient will demonstrate progress with functional mobility to allow safe discharge to home with available support and/or physical assistance. Ambulate with: Modified Independent Device: Standard Walker Rehab Potential: Good Progress Toward Goals: Progressing as expected PLAN PT Frequency: 4 Times Per Week Treatment Interventions: Education, Self Care / Home Management, Energy Conservation Training, Joint Mobility, Strengthening, Functional Mobility Training, Balance Training, Neuromuscular Re-education Plan for Next Visit: Standing Tolerance, Gait Training SIGNATURE: Olga Zee PT PATIENT NAME: Sherman Marie DATE: May 30, 2023 TIME: 1:49 PM [facility] Basic metabolic 2000 panelon 05-29-2023 Anion gap [Moles/Vol] 12 mmol/L Normal 9-18 [facility] Comment on above: Order Comment: Speci men Type: BLOOD SPECIMENOrdering Facility: [facility] Address: [address] [place] [address] Performed By: #### 1 9123-9, 15327-7 ####[facility] [id number] [place] [address] [place] Calcium [Mass/Vol] 9.2 mg/dL Normal 8.5-10.2 [facility] Comment on above: Order Comment: Speci men Type: BLOOD SPECIMENOrdering Facility: [facility] Address: [address] [place] [address] Performed By: #### 1 9123-9, 73958-7 ####[facility] [id number] [place] [address] [place] Chloride [Moles/Vol] 90 mmol/L Low 97-105 [facility] Comment on above: Order Comment: Speci men Type: BLOOD SPECIMENOrdering Facility: [facility] Address: [address] [place] [id number] Performed By: #### 1 9123-9, 90153-3 ####[facility] [id number] [place] [id number] [place] CO2 [Moles/Vol] 36 mmol/L High 22-30 [facility] Comment on above: Order Comment: Speci men Type: BLOOD SPECIMENOrdering Facility: [facility] Address: [address] [place] [address] Performed By: #### 1 9123-9, 38859-9 ####[facility] [id number] [place] [id number] [place] Creatinine [Mass/Vol] 1.39 mg/dL High 0.73-1.22 [facility] Comment on above: Order Comment: Speci men Type: BLOOD SPECIMENOrdering Facility: [facility] Address: [address] [place] [address] Performed By: #### 1 91239, 94968-4 ####[facility] [id number] [place] [address] [place] Creatinine and Glomerular filtration rate.predicted panel (S/P/Bld) 64 mL/min/1.73m??? Normal >=60 [facility] Comment on above: Order Comment: [facility] Type: BLOOD SPECIMENOrdering Facility: [facility] Address: [address] [place] [address] Result Comment: Hiral mated Glomerular Filtration Rate (eGFR) is calculated using the 2020 CKD-EPI creatinine equation. This equation utilizes serum creatinine, sex, and age as parameters. The creatinine assay has traceable calibration to isotope dilution-mass spectrometry. Refer to KDIGO guidelines for clinical interpretation. In patients with unstable renal function, e.g. those with acute kidney injury, the eGFR may not accurately reflect actual GFR. Performed By: #### 1 9123-9, 28678-5 ####[facility] [id number] [place] [address] [place] Glucose [Mass/Vol] 93 mg/dL Normal 74-99 [facility] Comment on above: Order Comment: Nereydai darrion Type: BLOOD SPECIMENOrdering Facility: [facility] Address: [address] [place] [address] Result Comment: The [place] Diabetes [employer] (ADA) provides guidance for cutoff values for fasting glucose and random glucose. The ADA defines fasting as no caloric intake for at least 8 hours. Fasting plasma glucose results between 100 to 125 mg/dL indicate increased risk for diabetes (prediabetes). Fasting plasma glucose results greater than or equal to 126 mg/dL meet the criteria for diagnosis of diabetes. In the absence of unequivocal hyperglycemia, results should be confirmed by repeat testing. In a patient with classic symptoms of hyperglycemia or hyperglycemic crisis, random plasma glucose results greater than or equal to 200 mg/dL meet the criteria for diagnosis of diabetes. Reference: Standards of Medical Care in Diabetes 2016, [place] [employer]. Diabetes Care. 2016.39(Suppl 1). Performed By: #### 1 9123-9, 22668-8 ####[facility] [id number] [place] [address] [place] Potassium [Moles/Vol] 3.5 mmol/L Low 3.7-5.1 [facility] Comment on above: Order Comment: Speci men Type: BLOOD SPECIMENOrdering Facility: [facility] Address: [address] [place] [address] Performed By: #### 1 91239, 00430-5 ####[facility] [id number] [place] [address] [place] Sodium [Moles/Vol] 138 mmol/L Normal 136-144 [facility] Comment on above: Order Comment: Speci men Type: BLOOD SPECIMENOrdering Facility: [facility] Address: [address] [place] [address] Performed By: #### 1 91239, 58066-3 ####[facility] [id number] [place] [address] [place] Urea nitrogen [Mass/Vol] 13 mg/dL Normal 9-24 [facility] Comment on above: Order Comment: Speci men Type: BLOOD SPECIMENOrdering Facility: [facility] Address: [address] [place] [address] Performed By: #### 1 9123-9, 53976-8 ####[facility] [id number] [place] [id number] [place] CBC panel Auto (Bld)on 05-29 Erythrocyte distribution width (RBC) [Ratio] 14.8 % Normal 11.5-15.0 [facility] Comment on above: Order Comment: Speci men Type: BLOOD SPECIMEN Ordering Facility: [facility] Address: [address] [place] [address] Performed By: #### 2 4323-8, 22101-2, 2776-04 #### [facility] CLIA [id number] [address] [place] [address] [place] Hematocrit (Bld) [Volume fraction] 37.2 % Low 39.0-51.0 [facility] Comment on above: Order Comment: Speci men Type: BLOOD SPECIMEN Ordering Facility: [facility] Address: [address] [place] [address] Performed By: #### 2 4323-8, , 2776-04 #### [facility] CLIA [id number] [address] [place] [address] [place] Hemoglobin (Bld) [Mass/Vol] 10.9 g/dL Low 13.0-17.0 [facility] Comment on above: Order Comment: Speci men Type: BLOOD SPECIMEN Ordering Facility: [facility] Address: [address] [place] [address] Performed By: #### 2 4323-8, , 2776-04 #### [facility] CLIA [id number] [address] [place] [address] [place] MCH (RBC) [Entitic mass] 27.5 pg Normal 26.0-34.0 [facility] Comment on above: Order Comment: Speci men Type: BLOOD SPECIMEN Ordering Facility: [facility] Address: [address] [place] [address] Performed By: #### 2 4323-8, , 2776-04 #### [facility] CLIA [id number] [address] [place] [address] [place] MCHC (RBC) [Mass/Vol] 29.3 g/dL Low 30.5-36.0 [facility] Comment on above: Order Comment: Speci men Type: BLOOD SPECIMEN Ordering Facility: [facility] Address: [address] [place] [address] Performed By: #### 2 4323-8, 36602-6, 2776-04 #### [facility] CLIA [id number] [address] [place] [address] [place] MCV (RBC) [Entitic vol] 93.7 fL Normal 80.0-100.0 [facility] Comment on above: Order Comment: Speci men Type: BLOOD SPECIMEN Ordering Facility: [facility] Address: [address] [place] [address] Performed By: #### 2 4323-8, , 2776-04 #### [facility] CLIA [id number] [address] [place] [address] [place] Nucleated RBC (Bld) [#/Vol] 10*3/uL Normal <0.01 [facility] Comment on above: Order Comment: Speci men Type: BLOOD SPECIMEN Ordering Facility: [facility] Address: [address] [place] [address] Performed By: #### 2 4323-8, , 2776-04 #### [facility] CLIA [id number] [address] [place] [address] [place] Platelet mean volume (Bld) [Entitic vol] 10.4 fL Normal 9.0-12.7 [facility] Comment on above: Order Comment: Speci men Type: BLOOD SPECIMEN Ordering Facility: [facility] Address: [address] [place] [address] Performed By: #### 2 4323-8, 34879-4, 2776-04 #### [facility] CLIA [id number] [address] [place] [address] [place] Platelets (Bld) [#/Vol] 186 10*3/uL Normal 150-400 [facility] Comment on above: Order Comment: Speci men Type: BLOOD SPECIMEN Ordering Facility: [facility] Address: [address] [place] [address] Performed By: #### 2 4323-8, 71559-1, 2777-1 #### [facility] CLIA [id number] [address] [place] [address] [place] RBC (Bld) [#/Vol] 3.97 10*6/uL Low 4.20-6.00 [facility] Comment on above: Order Comment: Speci men Type: BLOOD SPECIMEN Ordering Facility: [facility] Address: [address] [place] [address] Performed By: #### 2 4323-8, 51825-6, 2777-1 #### [facility] CLIA [id number] [address] [place] [address] [place] WBC (Bld) [#/Vol] 5.87 10*3/uL Normal 3.70-11.00 [facility] Comment on above: Order Comment: Speci men Type: BLOOD SPECIMEN Ordering Facility: [facility] Address: [address] [place] [address] Performed By: #### 2 4323-8, 31495-5, 2777-1 #### [facility] CLIA [id number] [address] [place] [address] [place] Magnesium SerPl-mCncon 05-29 Magnesium [Mass/Vol] 2.1 mg/dL Normal 1.7-2.3 [facility] Comment on above: Order Comment: Speci men Type: BLOOD SPECIMENOrdering Facility: [facility] Address: [address] [place] [address] Performed By: #### 1 9123-9, 07256-7 ####[facility] [id number] [place] [id number] [place] Basic metabolic 2000 panelon 05-28-2023 Anion gap [Moles/Vol] 12 mmol/L Normal 9-18 [facility] Comment on above: Order Comment: Speci men Type: BLOOD SPECIMEN Ordering Facility: [facility] Address: [address] [place] [address] Performed By: #### 2 4323-8, 42089-9, 2776-04 #### [facility] CLIA [id number] [address] [place] [address] [place] Calcium [Mass/Vol] 9.4 mg/dL Normal 8.5-10.2 [facility] Comment on above: Order Comment: Speci men Type: BLOOD SPECIMEN Ordering Facility: [facility] Address: [address] [place] [address] Performed By: #### 2 4323-8, , 2776-04 #### [facility] CLIA [id number] [address] [place] [address] [place] Chloride [Moles/Vol] 91 mmol/L Low 97-105 [facility] Comment on above: Order Comment: Speci men Type: BLOOD SPECIMEN Ordering Facility: [facility] Address: [address] [place] [address] Performed By: #### 2 4323-8, , 2776-04 #### [facility] CLIA [id number] [address] [place] [address] [place] CO2 [Moles/Vol] 36 mmol/L High 22-30 [facility] Comment on above: Order Comment: Speci men Type: BLOOD SPECIMEN Ordering Facility: [facility] Address: [address] [place] [address] Performed By: #### 2 4323-8, , 2776-04 #### [facility] CLIA [id number] [address] [place], [place] [id number] [place] Creatinine [Mass/Vol] 1.40 mg/dL High 0.73-1.22 [facility] Comment on above: Order Comment: Van maier Type: BLOOD SPECIMEN Ordering Facility: [facility] Address: [address] [place] [address] Performed By: #### 2 4323-8, 33385-4, 2776-04 #### [facility] CLIA [id number] [address] [place] [address] [place] Creatinine and Glomerular filtration rate.predicted panel (S/P/Bld) 63 mL/min/1.73m??? Normal >=60 [facility] Comment on above: Order Comment: Van maier Type: BLOOD SPECIMEN Ordering Facility: [facility] Address: [address] [place] [address] Result Comment: Hiral mated Glomerular Filtration Rate (eGFR) is calculated using the 2020 CKD-EPI creatinine equation. This equation utilizes serum creatinine, sex, and age as parameters. The creatinine assay has traceable calibration to isotope dilution-mass spectrometry. Refer to KDIGO guidelines for clinical interpretation. In patients with unstable renal function, e.g. those with acute kidney injury, the eGFR may not accurately reflect actual GFR. Performed By: #### 2 4323-8, , 2776-04 #### [facility] CLIA [id number] [address] [place] [address] [place] Glucose [Mass/Vol] 93 mg/dL Normal 74-99 [facility] Comment on above: Order Comment: Van maier Type: BLOOD SPECIMEN Ordering Facility: [facility] Address: [address] [place] [address] Result Comment: The [place] [employer] (ADA) provides guidance for cutoff values for fasting glucose and random glucose. The ADA defines fasting as no caloric intake for at least 8 hours. Fasting plasma glucose results between 100 to 125 mg/dL indicate increased risk for diabetes (prediabetes). Fasting plasma glucose results greater than or equal to 126 mg/dL meet the criteria for diagnosis of diabetes. In the absence of unequivocal hyperglycemia, results should be confirmed by repeat testing. In a patient with classic symptoms of hyperglycemia or hyperglycemic crisis, random plasma glucose results greater than or equal to 200 mg/dL meet the criteria for diagnosis of diabetes. Reference: Standards of Medical Care in Diabetes 2016, [place] [employer]. Diabetes Care. 2016.39(Suppl 1). Performed By: #### 2 4323-8, , 2776-04 #### [facility] CLIA [id number] [address] [place] [address] [place] Potassium [Moles/Vol] 3.5 mmol/L Low 3.7-5.1 [facility] Comment on above: Order Comment: Speci men Type: BLOOD SPECIMEN Ordering Facility: [facility] Address: [address] [place] [address] Performed By: #### 2 432-8, , 2776-04 #### [facility] CLIA [id number] [address] [place] [address] [place] Sodium [Moles/Vol] 139 mmol/L Normal 136-144 [facility] Comment on above: Order Comment: Speci men Type: BLOOD SPECIMEN Ordering Facility: [facility] Address: [address] [place] [address] Performed By: #### 2 432-8, , 2776-04 #### [facility] CLIA [id number] [address] [place] [address] [place] Urea nitrogen [Mass/Vol] 12 mg/dL Normal 9-24 [facility] Comment on above: Order Comment: Speci men Type: BLOOD SPECIMEN Ordering Facility: [facility] Address: [address] [place] [address] Performed By: #### 2 4323-8, , 2776-04 #### [facility] CLIA [id number] [address] [place], [place] [id number] [place] CASE MANAGEMon 05-28-2023 CASE MANAGEM HNO ID: [id number] Author: LILLIAM RANKIN RN Service: ? Author Type: Registered Nurse Type: Care Mgt Progress Note Filed: 05/28/2023 15:58 Note Text: CARE MANAGEMENT PROGRESS NOTE SERVICE DATE: 05/28/2023 SERVICE TIME: 3:51 PM LOS: 5 days Needs Prior to Discharge: To Be Determined;Accepting Facility Pt needs accepting HC for SN/PT/OT. CM unable to find accepting agency. Per bedside RN, pt states he uses [facility] [employer]. 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 CM tried to reach out to agency, but it is closed over the weekend. Per bedside RN, pt needs minimum assistance cleaning himself up and walking around the room. Outpatient therapy may be an option if he can find somewhere close. He does depend on transportation services. CM will continue to follow and update transitional plan as needed and appropriate through discharge. SIGNATURE: Lilliam Rankin RN PATIENT NAME: Sherman Marie DATE: May 28, 2023 TIME: 3:51 PM PAGER/CONTACT #: [phone] Normal [facility] CBC panel Auto (Bld)on 05-28 Erythrocyte distribution width (RBC) [Ratio] 15.2 % High 11.5-15.0 [facility] Comment on above: Order Comment: Speci men Type: BLOOD SPECIMENOrdering Facility: [facility] Address: [address] [place] [address] Performed By: #### 5 8410-2 ####[facility] [id number] [place] [address] [place] Hematocrit (Bld) [Volume fraction] 42.1 % Normal 39.0-51.0 [facility] Comment on above: Order Comment: Speci men Type: BLOOD SPECIMENOrdering Facility: [facility] Address: [address] [place] [address] Performed By: #### 5 8410-2 ####[facility] [id number] [place] [address] [place] Hemoglobin (Bld) [Mass/Vol] 12.5 g/dL Low 13.0-17.0 [facility] Comment on above: Order Comment: Speci men Type: BLOOD SPECIMENOrdering Facility: [facility] Address: [address] [place] [address] Performed By: #### 5 8410-2 ####[facility] [id number] [place] [address] [place] MCH (RBC) [Entitic mass] 27.9 pg Normal 26.0-34.0 [facility] Comment on above: Order Comment: Speci men Type: BLOOD SPECIMENOrdering Facility: [facility] Address: [address] [place] [address] Performed By: #### 5 8410-2 ####[facility] [id number] [place] [address] [place] MCHC (RBC) [Mass/Vol] 29.7 g/dL Low 30.5-36.0 [facility] Comment on above: Order Comment: Speci men Type: BLOOD SPECIMENOrdering Facility: [facility] Address: [address] [place] [address] Performed By: #### 5 8410-2 ####[facility] [id number] [place] [address] [place] MCV (RBC) [Entitic vol] 94.0 fL Normal 80.0-100.0 [facility] Comment on above: Order Comment: Speci men Type: BLOOD SPECIMENOrdering Facility: [facility] Address: [address] [place] [address] Performed By: #### 5 8410-2 ####[facility] [id number] [place] [address] [place] Nucleated RBC (Bld) [#/Vol] 10*3/uL Normal <0.01 [facility] Comment on above: Order Comment: Speci men Type: BLOOD SPECIMENOrdering Facility: [facility] Address: [address] [place] [address] Performed By: #### 5 8410-2 ####[facility] [id number] [place] [address] [place] Platelet mean volume (Bld) [Entitic vol] 11.2 fL Normal 9.0-12.7 [facility] Comment on above: Order Comment: Speci men Type: BLOOD SPECIMENOrdering Facility: [facility] Address: [address] [place] [address] Performed By: #### 5 8410-2 ####[facility] [id number] [place] [address] [place] Platelets (Bld) [#/Vol] 204 10*3/uL Normal 150-400 [facility] Comment on above: Order Comment: Speci men Type: BLOOD SPECIMENOrdering Facility: [facility] Address: [address] [place] [address] Performed By: #### 5 8410-2 ####[facility] [id number] [place] [address] [place] RBC (Bld) [#/Vol] 4.48 10*6/uL Normal 4.20-6.00 [facility] Comment on above: Order Comment: Speci men Type: BLOOD SPECIMENOrdering Facility: [facility] Address: [address] [place] [address] Performed By: #### 5 8410-2 ####[facility] [id number] [place] [id number] [place] WBC (Bld) [#/Vol] 7.12 10*3/uL Normal 3.70-11.00 [facility] Comment on above: Order Comment: Speci men Type: BLOOD SPECIMENOrdering Facility: [facility] Address: [address] [place] [address] Performed By: #### 5 8410-2 ####[facility] [id number] [place] [address] [place] Magnesium SerPl-mCncon 05-28 Magnesium [Mass/Vol] 2.2 mg/dL Normal 1.7-2.3 [facility] Comment on above: Order Comment: Speci men Type: BLOOD SPECIMEN Ordering Facility: [facility] Address: [address] [place] [address] Performed By: #### 2 4323-8, 69682-2, 2777-1 #### [facility] CLIA [id number] [address] [place] [address] [place] CBC panel Auto (Bld)on 05-27 Erythrocyte distribution width (RBC) [Ratio] 15.5 % High 11.5-15.0 [facility] Comment on above: Order Comment: Speci men Type: BLOOD SPECIMENOrdering Facility: [facility] Address: [address] [place] [address] Performed By: #### 5 8410-2 ####[facility] [id number] [place] [address] [place] Hematocrit (Bld) [Volume fraction] 34.9 % Low 39.0-51.0 [facility] Comment on above: Order Comment: Speci men Type: BLOOD SPECIMENOrdering Facility: [facility] Address: [address] [place] [address] Performed By: #### 5 8410-2 ####[facility] [id number] [place] [address] [place] Hemoglobin (Bld) [Mass/Vol] 10.2 g/dL Low 13.0-17.0 [facility] Comment on above: Order Comment: Speci men Type: BLOOD SPECIMENOrdering Facility: [facility] Address: [address] [place] [address] Performed By: #### 5 8410-2 ####[facility] [id number] [place] [address] [place] MCH (RBC) [Entitic mass] 27.7 pg Normal 26.0-34.0 [facility] Comment on above: Order Comment: Speci men Type: BLOOD SPECIMENOrdering Facility: [facility] Address: [address] [place] [address] Performed By: #### 5 8410-2 ####[facility] [id number] [place] [address] [place] MCHC (RBC) [Mass/Vol] 29.2 g/dL Low 30.5-36.0 [facility] Comment on above: Order Comment: Speci men Type: BLOOD SPECIMENOrdering Facility: [facility] Address: [address] [place] [address] Performed By: #### 5 8410-2 ####[facility] [id number] [place] [address] [place] MCV (RBC) [Entitic vol] 94.8 fL Normal 80.0-100.0 [facility] Comment on above: Order Comment: Speci men Type: BLOOD SPECIMENOrdering Facility: [facility] Address: [address] [place] [address] Performed By: #### 5 8410-2 ####[facility] [id number] [place] [address] [place] Nucleated RBC (Bld) [#/Vol] 10*3/uL Normal <0.01 [facility] Comment on above: Order Comment: Speci men Type: BLOOD SPECIMENOrdering Facility: [facility] Address: [address] [place] [address] Performed By: #### 5 8410-2 ####[facility] [id number] [place] [address] [place] Platelet mean volume (Bld) [Entitic vol] 10.9 fL Normal 9.0-12.7 [facility] Comment on above: Order Comment: Speci men Type: BLOOD SPECIMENOrdering Facility: [facility] Address: [address] [place] [address] Performed By: #### 5 8410-2 ####[facility] [id number] [place] [address] [place] Platelets (Bld) [#/Vol] 183 10*3/uL Normal 150-400 [facility] Comment on above: Order Comment: Speci men Type: BLOOD SPECIMENOrdering Facility: [facility] Address: [address] [place] [address] Performed By: #### 5 8410-2 ####[facility] [id number] [place] [address] [place] RBC (Bld) [#/Vol] 3.68 10*6/uL Low 4.20-6.00 [facility] Comment on above: Order Comment: Speci men Type: BLOOD SPECIMENOrdering Facility: [facility] Address: [address] [place] [address] Performed By: #### 5 8410-2 ####[facility] [id number] [place] [address] [place] WBC (Bld) [#/Vol] 7.11 10*3/uL Normal 3.70-11.00 [facility] Comment on above: Order Comment: Speci men Type: BLOOD SPECIMENOrdering Facility: [facility] Address: [address] [place] [address] Performed By: #### 5 8410-2 ####[facility] [id number] [place] [address] [place] Comprehensive metabolic 2000 panelon 05-27-2023 Albumin [Mass/Vol] 3.8 g/dL Low 3.9-4.9 [facility] Comment on above: Order Comment: Speci men Type: BLOOD SPECIMEN Ordering Facility: [facility] Address: [address] [place] [address] Performed By: #### 2 4323-8, 64963-0, 2776- #### [facility] CLIA [id number] [address] [place] [address] [place] ALP [Catalytic activity/Vol] 38 U/L Normal 38-113 [facility] Comment on above: Order Comment: Speci men Type: BLOOD SPECIMEN Ordering Facility: [facility] Address: [address] [place] [address] Performed By: #### 2 4323-8, , 2776-04 #### [facility] CLIA [id number] [address] [place] [address] [place] ALT [Catalytic activity/Vol] 14 U/L Normal 10-54 [facility] Comment on above: Order Comment: Speci men Type: BLOOD SPECIMEN Ordering Facility: [facility] Address: [address] [place] [address] Performed By: #### 2 4323-8, , 2776-04 #### [facility] CLIA [id number] [address] [place] [address] [place] Anion gap [Moles/Vol] 10 mmol/L Normal 9-18 [facility] Comment on above: Order Comment: Speci men Type: BLOOD SPECIMEN Ordering Facility: [facility] Address: [address] [place] [address] Performed By: #### 2 4323-8, , 2776-04 #### [facility] CLIA [id number] [address] [place], [place] [id number] [place] AST [Catalytic activity/Vol] 14 U/L Normal 14-40 [facility] Comment on above: Order Comment: Speci men Type: BLOOD SPECIMEN Ordering Facility: [facility] Address: [address] [place], [place] [address] Performed By: #### 2 4323-8, 20603-6, 2777-1 #### [facility] CLIA [id number] [address] [place] [address] [place] Bilirubin [Mass/Vol] 1.8 mg/dL High 0.2-1.3 [facility] Comment on above: Order Comment: Speci men Type: BLOOD SPECIMEN Ordering Facility: [facility] Address: [address] [place], [place] [address] Performed By: #### 2 4323-8, , 2776-04 #### [facility] CLIA [id number] [address] [place], [place] [address] [place] Calcium [Mass/Vol] 8.7 mg/dL Normal 8.5-10.2 [facility] Comment on above: Order Comment: Speci men Type: BLOOD SPECIMEN Ordering Facility: [facility] Address: [address] [place] [address] Performed By: #### 2 4323-8, , 2776-04 #### [facility] CLIA [id number] [address] [place], [place] [address] [place] Chloride [Moles/Vol] 95 mmol/L Low 97-105 [facility] Comment on above: Order Comment: Speci men Type: BLOOD SPECIMEN Ordering Facility: [facility] Address: [address] [place], [place] [address] Performed By: #### 2 4323-8, , 2776-04 #### [facility] CLIA [id number] [address] [place], [place] [address] [place] CO2 [Moles/Vol] 39 mmol/L High 22-30 [facility] Comment on above: Order Comment: Speci men Type: BLOOD SPECIMEN Ordering Facility: [facility] Address: [address] [place] [address] Performed By: #### 2 4323-8, , 2776-04 #### [facility] CLIA [id number] [address] [place] [address] [place] Creatinine [Mass/Vol] 1.65 mg/dL High 0.73-1.22 [facility] Comment on above: Order Comment: Van maier Type: BLOOD SPECIMEN Ordering Facility: [facility] Address: [address] [place] [address] Performed By: #### 2 4323-8, 41969-2, 2776-04 #### [facility] CLIA [id number] [address] [place] [address] [place] Creatinine and Glomerular filtration rate.predicted panel (S/P/Bld) 52 mL/min/1.73m??? Low >=60 [facility] Comment on above: Order Comment: Van maier Type: BLOOD SPECIMEN Ordering Facility: [facility] Address: [address] [place] [address] Result Comment: Hiral mated Glomerular Filtration Rate (eGFR) is calculated using the 2020 CKD-EPI creatinine equation. This equation utilizes serum creatinine, sex, and age as parameters. The creatinine assay has traceable calibration to isotope dilution-mass spectrometry. Refer to KDIGO guidelines for clinical interpretation. In patients with unstable renal function, e.g. those with acute kidney injury, the eGFR may not accurately reflect actual GFR. Performed By: #### 2 4323-8, , 2776-04 #### [facility] CLIA [id number] [address] [place] [address] [place] Glucose [Mass/Vol] 100 mg/dL High 74-99 [facility] Comment on above: Order Comment: Van maier Type: BLOOD SPECIMEN Ordering Facility: [facility] Address: [address] [place] [address] Result Comment: The [place] [employer] (ADA) provides guidance for cutoff values for fasting glucose and random glucose. The ADA defines fasting as no caloric intake for at least 8 hours. Fasting plasma glucose results between 100 to 125 mg/dL indicate increased risk for diabetes (prediabetes). Fasting plasma glucose results greater than or equal to 126 mg/dL meet the criteria for diagnosis of diabetes. In the absence of unequivocal hyperglycemia, results should be confirmed by repeat testing. In a patient with classic symptoms of hyperglycemia or hyperglycemic crisis, random plasma glucose results greater than or equal to 200 mg/dL meet the criteria for diagnosis of diabetes. Reference: Standards of Medical Care in Diabetes 2016, [place] [employer]. Diabetes Care. 2016.39(Suppl 1). Performed By: #### 2 4323-8, , 2776-04 #### [facility] CLIA [id number] [address] [place] [address] [place] Potassium [Moles/Vol] 3.4 mmol/L Low 3.7-5.1 [facility] Comment on above: Order Comment: Speci men Type: BLOOD SPECIMEN Ordering Facility: [facility] Address: [address] [place] [address] Performed By: #### 2 432-8, , 2776-04 #### [facility] CLIA [id number] [address] [place] [address] [place] Protein [Mass/Vol] 7.8 g/dL Normal 6.3-8.0 [facility] Comment on above: Order Comment: Speci men Type: BLOOD SPECIMEN Ordering Facility: [facility] Address: [address] [place] [address] Performed By: #### 2 4323-8, , 2776-04 #### [facility] CLIA [id number] [address] [place] [address] [place] Sodium [Moles/Vol] 144 mmol/L Normal 136-144 [facility] Comment on above: Order Comment: Speci men Type: BLOOD SPECIMEN Ordering Facility: [facility] Address: [address] [place] [address] Performed By: #### 2 4323-8, , 2776-04 #### [facility] CLIA [id number] [address] [place] [address] [place] Urea nitrogen [Mass/Vol] 11 mg/dL Normal 9-24 [facility] Comment on above: Order Comment: Speci men Type: BLOOD SPECIMEN Ordering Facility: [facility] Address: [address] [place] [address] Performed By: #### 2 4323-8, 57029-5, 2776-04 #### [facility] CLIA [id number] [address] [place] [address] [place] Gas and Carbon monoxide pane l (BldV)on 05-27-2023 Base excess Calc (BldV) [Moles/Vol] 11 mmol/L High 0-2 [facility] Comment on above: Order Comment: Speci men Type: BLOOD SPECIMEN Ordering Facility: [facility] Address: [address] [place] [address] Performed By: #### 2 4323-8, , 2776-04 #### [facility] CLIA [id number] [address] [place] [address] [place] Body temperature 98.6 [degF] Normal [facility] Comment on above: Order Comment: Speci men Type: BLOOD SPECIMEN Ordering Facility: [facility] Address: [address] [place] [address] Performed By: #### 2 4323-8, , 2776-04 #### [facility] CLIA [id number] [address] [place] [address] [place] Calcium.ionized (Bld) [Mass/Vol] 1.05 mmol/L Low 1.08-1.30 [facility] Comment on above: Order Comment: Speci men Type: BLOOD SPECIMEN Ordering Facility: [facility] Address: [address] [place] [address] Performed By: #### 2 4323-8, 93403-8, 2776-04 #### [facility] CLIA [id number] [address] [place] [address] [place] Calcium.ionized adjusted to pH 7.4 (BldA) [Moles/Vol] 1.02 mmol/L Low 1.08-1.30 [facility] Comment on above: Order Comment: Speci men Type: BLOOD SPECIMEN Ordering Facility: [facility] Address: [address] [place] [address] Performed By: #### 2 4323-8, 32039-3, 2776- #### [facility] CLIA [id number] [address] [place] [address] [place] Carboxyhemoglobin (BldV) [Mass fraction] 2.4 % High 0.0-2.0 [facility] Comment on above: Order Comment: Speci men Type: BLOOD SPECIMEN Ordering Facility: [facility] Address: [address] [place] [address] Result Comment: Carb oxyhemoglobin Reference Range for Smokers: 2.0-8.0% Performed By: #### 2 4323-8, , 2776-04 #### [facility] CLIA [id number] [address] [place] [address] [place] CO2 (BldV) [Partial pressure] 74 mm[Hg] High 42-55 [facility] Comment on above: Order Comment: Speci men Type: BLOOD SPECIMEN Ordering Facility: [facility] Address: [address] [place] [address] Performed By: #### 2 4323-8, , 2776-04 #### [facility] CLIA [id number] [address] [place] [address] [place] Glucose [Mass/Vol] 100 mg/dL Normal 60-105 [facility] Comment on above: Order Comment: Speci men Type: BLOOD SPECIMEN Ordering Facility: [facility] Address: [address] [place] [address] Performed By: #### 2 4323-8, 98023-5, 2776- #### [facility] CLIA [id number] [address] [place] [address] [place] HCO3 (Bld) [Moles/Vol] 39 mmol/L High 24-28 [facility] Comment on above: Order Comment: Speci men Type: BLOOD SPECIMEN Ordering Facility: [facility] Address: [address] [place] [address] Performed By: #### 2 4323-8, 17629-5, 2776-04 #### [facility] CLIA [id number] [address] [place] [address] [place] Hematocrit (Bld) [Volume fraction] 31.0 % Low 39.0-51.0 [facility] Comment on above: Order Comment: Speci men Type: BLOOD SPECIMEN Ordering Facility: [facility] Address: [address] [place] [address] Performed By: #### 2 4323-8, , 2776-04 #### [facility] CLIA [id number] [address] [place] [address] [place] Hemoglobin (Bld) [Mass/Vol] 10.0 g/dL Low 13.0-17.0 [facility] Comment on above: Order Comment: Speci men Type: BLOOD SPECIMEN Ordering Facility: [facility] Address: [address] [place] [address] Performed By: #### 2 4323-8, , 2776-04 #### [facility] CLIA [id number] [address] [place] [address] [place] Lactate [Moles/Vol] 0.8 mmol/L Normal 0.5-2.2 [facility] Comment on above: Order Comment: Speci men Type: BLOOD SPECIMEN Ordering Facility: [facility] Address: [address] [place] [address] Performed By: #### 2 4323-8, 21872-4, 2776-04 #### [facility] CLIA [id number] [address] [place] [address] [place] Methemoglobin (Bld) [Mass fraction] 1.3 % Normal 0.0-1.5 [facility] Comment on above: Order Comment: Speci men Type: BLOOD SPECIMEN Ordering Facility: [facility] Address: [address] [place] [address] Performed By: #### 2 4323-8, 83447-5, 2776-04 #### [facility] CLIA [id number] [address] [place] [address] [place] O2 THERAPY NC = Nasal Cannula Normal [facility] Comment on above: Order Comment: Speci men Type: BLOOD SPECIMEN Ordering Facility: [facility] Address: [address] [place] [address] Result Comment: Prin ter not working Performed By: #### 2 4323-8, , 2776-04 #### [facility] CLIA [id number] [address] [place] [address] [place] Oxygen (BldV) [Partial pressure] 43 mm[Hg] Normal 35-45 [facility] Comment on above: Order Comment: Speci men Type: BLOOD SPECIMEN Ordering Facility: [facility] Address: [address] [place] [address] Performed By: #### 2 4323-8, , 2776-04 #### [facility] CLIA [id number] [address] [place] [address] [place] Oxygen saturation in Venous blood 73 % Normal 60-85 [facility] Comment on above: Order Comment: Speci men Type: BLOOD SPECIMEN Ordering Facility: [facility] Address: [address] [place] [address] Performed By: #### 2 4323-8, , 2776- #### [facility] CLIA [id number] [address] [place], [place] [id number] [place] Oxyhemoglobin (BldV) [Mass fraction] 71 % Normal 60-85 [facility] Comment on above: Order Comment: Speci men Type: BLOOD SPECIMEN Ordering Facility: [facility] Address: [address] [place] [address] Performed By: #### 2 4323-8, , 2776-04 #### [facility] CLIA [id number] [address] [place] [address] [place] pH (BldV) 7.34 [pH] Normal 7.32-7.42 [facility] Comment on above: Order Comment: Speci men Type: BLOOD SPECIMEN Ordering Facility: [facility] Address: [address] [place], [place] [address] Performed By: #### 2 4323-8, , 2776-04 #### [facility] CLIA [id number] [address] [place] [address] [place] Potassium [Moles/Vol] 3.5 mmol/L Normal 3.5-5.0 [facility] Comment on above: Order Comment: Speci men Type: BLOOD SPECIMEN Ordering Facility: [facility] Address: [address] [place] [address] Performed By: #### 2 4323-8, , 2776-04 #### [facility] CLIA [id number] [address] [place] [address] [place] Sodium [Moles/Vol] 143 mmol/L Normal 136-144 [facility] Comment on above: Order Comment: Speci men Type: BLOOD SPECIMEN Ordering Facility: [facility] Address: [address] [place] [address] Performed By: #### 2 4323-8, , 2776-04 #### [facility] CLIA [id number] [address] [place] [address] [place] Magnesium SerPl-mCncon 05-27 Magnesium [Mass/Vol] 2.0 mg/dL Normal 1.7-2.3 [facility] Comment on above: Order Comment: Speci men Type: BLOOD SPECIMEN Ordering Facility: [facility] Address: [address] [place] [address] Performed By: #### 2 4323-8, , 27710-23 #### [facility] CLIA [id number] [address] [place], [place] [address] [address] [address] [place] PT EDon 05-27-2023 PT ED HNO ID: [id number] Author: DILCIA KOCH DTR Service: Nutrition Therapy Author Type: Strategic Sourcing Specialist Type: Patient Education Filed: 05/27/2023 10:00 Note Text: NUTRITION THERAPY PATIENT EDUCATION SERVICE DATE: 05/27/2023 SERVICE TIME: 805 TOPIC: Diet: bariatric LEARNING ASSESSMENT Individuals Assessed: Patient Preferred Learning Method: Individual Instruction, Verbal Instruction, and Written Instruction Barriers to Learning: None Evident LEARNING RESPONSE Instruction Provided to: Patient Patient / Family Response: Performs Independently and Verbalizes Understanding Method of Instruction: Individual instruction Written instruction - handouts Verbal instruction Material(s) Provided to Patient: Bariatric Surgery Post Operative Care Follow-Up Plan: Complete - No need for follow-up Patient instructed to call with any further issues Contact information given. Referral (Recommendation): Nutrition - Outpatient MNT Billing: $ Routine Care : 16-30 minutes SIGNATURE: Dilcia Koch DTR PATIENT NAME: Sherman Marie DATE: May 27, 2023 TIME: 9:59 AM PAGER: Normal [facility] Phosphate SerPl-mCncon 05-27 Phosphate [Mass/Vol] 2.9 mg/dL Normal 2.7-4.8 [facility] Comment on above: Order Comment: Speci men Type: BLOOD SPECIMEN Ordering Facility: [facility] Address: [address] [place] [address] Performed By: #### 2 4323-8, , 27710-23 #### [facility] CLIA [id number] [address] [place], [place] [address] [place] [address] [place] THERAPY NTon 05-27-2023 THERAPY NT HNO ID: [id number] Author: GLORIA BROWER, OT/L Service: Occupational Therapy Author Type: Occupational Therapist Type: Therapy (PT/OT/Speech/Resp) Filed: 05/27/2023 14:52 Note Text: Occupational Therapy Treatment Summary SERVICE DATE: 05/27/2023 SERVICE TIME: 1355 to 1435 ROOM: [place] [address] OT 6 Clicks Score: 17 DISCHARGE RECOMMENDATIONS Home OT Recommended Discharge Disposition Comments: . Anticipated Discharge Needs: Physical Assist at Home Physical Assist at Home for: Cleaning, Laundry, Meals, Shopping, Transportation, Self Care, Transfers, Ambulation ASSESSMENT Response to Therapy Interventions: Good Participation in Activities, Low Activity Tolerance PRECAUTIONS Abdominal, Lines/Tubes/Drains, Fall Risk CURRENT HOSPITAL COURSE A 43 y/o male s/p planned sleeve gastrectomy on 05/24/23. . Pulmonology was consulted for acute hypercarbia requiring BIPAP in the SICU and post-op respiratory optimization. Relevant Past Medical History: PMH morbid obesity BMI 86.4, ISI on CPAP, and lymphedema HOME LIVING Patient Lives With: Self/Alone Assistance Available: Bomb Technician Entry To Home: No Stairs Tub/Shower Type: walk in shower with grab bars Laundry: home health aide assists PRIOR FUNCTIONAL LEVEL Required Assistance Assistance Required With: Cleaning, Laundry, Shopping, Transportation, Self Care, Meals Pt reports that he was receiving help from a home health aide who assisted with dressing, bathing, cooking, cleaning etc. INSTRUCTIONAL LEADER Baseline Cognition: Oriented to self, Oriented to place, Oriented to time SUBJECTIVE I'm feeling better each day COGNITION Cog 6 Start of Session Total Points (Max Score = 24): 24 (05/27/23) Cog 6 End of Session Total Points (Max Score = 24): 24 (05/27/23) Confusion Assessment Method (CAM - ICU Score): Negative (05/27/23) THERAPY DIAGNOSIS Reduced mobility-other, Decreased activities of daily living (ADL), Muscle Weakness (generalized) TREATMENT INTERVENTIONS Self Half-Way Management (36282) Timed Code Treatment (minutes): 40 Skilled Treatment Time (minutes): 40 TRAINING AND EDUCATION PROVIDED Activity Adaptation/Pilot y Strategies, Bed Mobility, Benefits of In-Hospital Mobility, Disease Specific Education, Grooming Tasks, Health Literacy, Health Management of Chronic Conditions, Home Set-up/Modifications, IADLs/Home Management, Identification of Systems of Support, Visual Scanning/Attention Activities, Transfer - Bed to Chair, Transfer - Sit to Stand, Standing Balance to Improve Hume with ADLs/Self-Care, Sitting Balance to Improve [place] with ADLs/Self-Care, Role of Occupational Therapy, Precautions/Restrictio ns THERAPEUTIC SKILLS USED Therapeutic Use of Self, Teach-Back for Education, Physical Assist, Management of Critical Lines, Tubes and/or Drains, Cues for Sequencing/Proper Technique for Activity, Cuing Tactile, Cuing Verbal, Cuing Visual, Activity Dosing FUNCTIONAL STATUS Activities of Daily Living Assist Level Additional Information Feeding Set Up Grooming Set Up Bathing Upper Body Minimal Assistance Bathing Lower Body Maximal Assistance Dressing Upper Body Minimal Assistance Dressing Lower Body Maximal Assistance Toileting Maximal Assistance Mobility Assist Level Additional Information Bed Mobility Rolling: Contact Guard Assistance Sit To Supine: Minimal Assistance Sit to Stand Contact Guard Assistance Stand to Sit Contact Guard Assistance Bed to Chair Contact Guard Assistance Bed To Chair Transfer Type: Stepping Bed To Chair Transfer Equipment: (Bariatric standard walker) Toilet/Commode Shower Functional Mobility GOALS Patient will demonstrate progress with self-care, cognitive and/or coping needs identified to allow safe discharge to home with available support and/or physical assistance. Progress Toward Goals: Progressing as expected Rehab Potential: Good PLAN OT Frequency: One Additional Visit Treatment Interventions: Education, Self Care/Home Management, Energy Conservation Training, Joint Mobility, Strengthening, Functional Mobility Training, Balance Training Plan for Next Visit: Bathing Training, Bed Mobility, Chair/Commode Transfer Training, Dressing Training SIGNATURE: Gloria Brower OT/L PATIENT NAME: Sherman Marie DATE: May 27, 2023 TIME: 2:52 PM [facility] THERAPY NT HNO ID: [id number] Author: GERALDINE CALDERON, PT Service: Physical Therapy Author Type: Physical Therapist Type: Therapy (PT/OT/Speech/Resp) Filed: 05/27/2023 09:46 Note Text: Physical Therapy Treatment Summary SERVICE DATE: 05/27/2023 SERVICE TIME: 849 to 926 ROOM: [place] [address] PT 6 Clicks Score: 18 DISCHARGE RECOMMENDATIONS Home PT Recommended Discharge Equipment: To Be Determined ASSESSMENT Response to Therapy Interventions: Good Participation in Activities Pt tolerated good tolerance to exercise today. Pt was feeling ready to ambulate and completed aprox 250ft with a ke-FWW and CGA with a chair follow. Pt demonstrated a decreased mirtha but normal gait mechanics with no LOB or adverse events throughout. Anticipate pt d/c to home with PT to juany working on safety with functional moblity, [facility] progressing to home without PT PRECAUTIONS Abdominal, Lines/Tubes/Drains, Fall Risk CURRENT HOSPITAL COURSE A 43 y/o male s/p planned sleeve gastrectomy on 05/24/23. . Pulmonology was consulted for acute hypercarbia requiring BIPAP in the SICU and post-op respiratory optimization. Relevant Past Medical History: PMH morbid obesity BMI 86.4, IIS on CPAP, and lymphedema HOME LIVING Patient Lives With: Self/Alone Assistance Available: Bomb Technician Entry To Home: No Stairs Tub/Shower Type: walk in shower with grab bars Laundry: home health aide assists PRIOR FUNCTIONAL LEVEL Required Assistance Assistance Required With: Cleaning, Laundry, Shopping, Transportation, Self Care, Meals Pt reports that he was receiving help from a home health aide who assisted with dressing, bathing, cooking, cleaning etc. INSTRUCTIONAL LEADER SUBJECTIVE Pt agreeable to session THERAPY DIAGNOSIS Reduced mobility-other TREATMENT INTERVENTIONS Gait Training (34136), Therapeutic Activity (69101) Timed Code Treatment (minutes): 37 Skilled Treatment Time (minutes): 37 TRAINING AND EDUCATION PROVIDED Anatomy and Impact on Deficits, Assistive Device Use, Benefits of In-Hospital Mobility, Bed Mobility, Energy Conservation, Falls Prevention, Gait Pattern, Reduction of Deviations, Pain Neuroscience, Positioning, Precautions/Restrictio ns, Pre-gait Activities, Role of Physical Therapy, Standing Balance, Transfers THERAPEUTIC SKILLS USED Activity Dosing, Assessment of Tolerance Including Vitals Response to Activity, Cues for Sequencing/Proper Technique for Activity, Cuing Verbal, Cuing Visual, Facilitation of Joint Range of Motion, Management of Critical Lines, Tubes and/or Drains, Movement Facilitation, Muscle Activation Facilitation, Physical Assist, Postural Alignment Correction, Teach-Back for Education, Task Analysis Learning FUNCTIONAL STATUS Bed Mobility Rolling: Contact Guard Assistance Supine To Sit: Contact Guard Assistance Scooting: Contact Guard Assistance Transfers Sit To Stand: Contact Guard Assistance Stand To Sit: Contact Guard Assistance Bed to Chair Contact Guard Assistance Bed To Chair Transfer Type: Stepping Bed To Chair Transfer Equipment: Wheeled Walker (ke walker) Gait Contact Guard Assistance Gait Device: Wheeled Walker, Other: See Comment (ke - walker) Gait Distance (feet): 250 Stairs GOALS Patient will demonstrate progress with functional mobility to allow safe discharge to home with available support and/or physical assistance. Ambulate with: Modified Independent Device: Standard Walker Rehab Potential: Good PLAN PT Frequency: 4 Times Per Week Treatment Interventions: Education, Self Care / Home Management, Energy Conservation Training, Joint Mobility, Strengthening, Functional Mobility Training, Balance Training, Neuromuscular Re-education Plan for Next Visit: Standing Tolerance, Gait Training SIGNATURE: Charo Tang SPT PATIENT NAME: Sherman Marie DATE: May 27, 2023 TIME: 9:44 AM Supervising therapist was present and guided the care of the patient for the entire session on this date. All documentation was reviewed and agreed upon. Geraldine Calderon, PT [facility] XR CHEST 1V FRONTAL PORTon 0 05-27-2023 XR CHEST 1V FRONTAL PORT * * *Final Report* * * DATE OF EXAM: May 27 2023 11:55AM JOSE [id number] - XR CHEST 1V FRONTAL PORT / PROCEDURE REASON: Shortness of breath * * * * Physician Interpretation * * * * EXAMINATION: CHEST RADIOGRAPH (PORTABLE SINGLE VIEW AP) Exam Date/Time: 05/27/2023 11:55 AM Clinical History: Shortness of breath MQ: XCPMC_6 Comparison: 05/25/2023. RESULT: Lines, tubes, and devices: None. Lungs and pleura: Bilateral mixed airspace and interstitial opacities reflecting pulmonary edema or pneumonia. Small bilateral pleural effusions. No pneumothorax. Cardiomediastinal silhouette: Stable cardiomediastinal silhouette. Other: . IMPRESSION: See result. Forensic Accountant: PSCB Transcribe Date/Time: May 27 2023 12:45P Dictated by : FABRICE MEAD MD This examination was interpreted and the report reviewed and electronically signed by: FABRICE MEAD MD on May 27 2023 12:46PM EST [id number] [facility] ALLIED HEALTHon 05-26-2023 ALLIED HEALTH HNO ID: [id number] Author: NOAH KIMBLE Emt/Dispatcher Service: Spiritual Care Author Type: Emt/Dispatcher Type: Allied Health Filed: 05/26/2023 13:32 Note Text: SPIRITUALCARE Spiritual Care Visit- Brief Note Name: Shreman Marie Date: May 26, 2023 Notes: Emt/Dispatcher rounds: patient being assisted by staff. He acknowledged my presence. Will follow up at another time. Emt/Dispatcher Signature: Chaplain Sandra To contact the Spiritual Care Department: Please call [phone] or Page the On-Call Emt/Dispatcher at pager [phone] Thank you for the opportunity to be of service. This is an electronically created document. IF PRINTED, PLEASE DO NOT REMOVE FROM THE CHART OR MODIFY PRINTED COPY. Normal [facility] Basic metabolic 2000 panelon 05-26-2023 Anion gap [Moles/Vol] 11 mmol/L Normal 9-18 [facility] Comment on above: Order Comment: Speci men Type: BLOOD SPECIMEN Ordering Facility: [facility] Address: [address] [place] [address] Performed By: #### 2 4323-8, , 2776-04 #### [facility] CLIA [id number] [address] [place] [address] [place] Calcium [Mass/Vol] 8.5 mg/dL Normal 8.5-10.2 [facility] Comment on above: Order Comment: Speci men Type: BLOOD SPECIMEN Ordering Facility: [facility] Address: [address] [place], [place] [address] Performed By: #### 2 4323-8, , 2776-04 #### [facility] CLIA [id number] [address] [place] [address] [place] Chloride [Moles/Vol] 97 mmol/L Normal 97-105 [facility] Comment on above: Order Comment: Speci men Type: BLOOD SPECIMEN Ordering Facility: [facility] Address: [address] [place] [address] Performed By: #### 2 4323-8, , 2776-04 #### [facility] CLIA [id number] [address] [place] [address] [place] CO2 [Moles/Vol] 36 mmol/L High 22-30 [facility] Comment on above: Order Comment: Speci men Type: BLOOD SPECIMEN Ordering Facility: [facility] Address: [address] [place] [address] Performed By: #### 2 4323-8, , 2776-04 #### [facility] CLIA [id number] [address] [place] [address] [place] Creatinine [Mass/Vol] 1.59 mg/dL High 0.73-1.22 [facility] Comment on above: Order Comment: Speci men Type: BLOOD SPECIMEN Ordering Facility: [facility] Address: [address] [place] [address] Performed By: #### 2 4328, , 2776-04 #### [facility] CLIA [id number] [address] [place] [address] [place] Creatinine and Glomerular filtration rate.predicted panel (S/P/Bld) 54 mL/min/1.73m??? Low >=60 [facility] Comment on above: Order Comment: Speci men Type: BLOOD SPECIMEN Ordering Facility: [facility] Address: [address] [place] [address] Result Comment: Hiral mated Glomerular Filtration Rate (eGFR) is calculated using the 2020 CKD-EPI creatinine equation. This equation utilizes serum creatinine, sex, and age as parameters. The creatinine assay has traceable calibration to isotope dilution-mass spectrometry. Refer to KDIGO guidelines for clinical interpretation. In patients with unstable renal function, e.g. those with acute kidney injury, the eGFR may not accurately reflect actual GFR. Performed By: #### 2 4323-8, , 2776-04 #### [facility] CLIA [id number] [address] [place] [address] [place] Glucose [Mass/Vol] 101 mg/dL High 74-99 [facility] Comment on above: Order Comment: Speci men Type: BLOOD SPECIMEN Ordering Facility: [facility] Address: [address] [place] [address] Result Comment: The [place] [employer] (ADA) provides guidance for cutoff values for fasting glucose and random glucose. The ADA defines fasting as no caloric intake for at least 8 hours. Fasting plasma glucose results between 100 to 125 mg/dL indicate increased risk for diabetes (prediabetes). Fasting plasma glucose results greater than or equal to 126 mg/dL meet the criteria for diagnosis of diabetes. In the absence of unequivocal hyperglycemia, results should be confirmed by repeat testing. In a patient with classic symptoms of hyperglycemia or hyperglycemic crisis, random plasma glucose results greater than or equal to 200 mg/dL meet the criteria for diagnosis of diabetes. Reference: Standards of Medical Care in Diabetes 2016, [place] [employer]. Diabetes Care. 2016.39(Suppl 1). Performed By: #### 2 4323-8, , 2776-04 #### [facility] CLIA [id number] [address] [place] [address] [place] Potassium [Moles/Vol] 3.5 mmol/L Low 3.7-5.1 [facility] Comment on above: Order Comment: Speci men Type: BLOOD SPECIMEN Ordering Facility: [facility] Address: [address] [place] [address] Performed By: #### 2 4323-8, , 2776-04 #### [facility] CLIA [id number] [address] [place] [address] [place] Sodium [Moles/Vol] 144 mmol/L Normal 136-144 [facility] Comment on above: Order Comment: Speci men Type: BLOOD SPECIMEN Ordering Facility: [facility] Address: [address] [place] [address] Performed By: #### 2 4323-8, , 2776-04 #### [facility] CLIA [id number] [address] [place] [address] [place] Urea nitrogen [Mass/Vol] 11 mg/dL Normal 9-24 [facility] Comment on above: Order Comment: Speci men Type: BLOOD SPECIMEN Ordering Facility: [facility] Address: [address] [place] [address] Performed By: #### 2 4323-8, 61597-6, 2777-1 #### [facility] CLIA [id number] [address] [place] [address] [place] CASE MANAGEMon 05-26-2023 CASE MANAGEM HNO ID: [id number] Author: ?, ?, ? Service: ? Author Type: ? Type: Care Mgt Progress Note Filed: 05/26/2023 12:20 Note Text: CARE MANAGEMENT PROGRESS NOTE SERVICE DATE: 05/26/2023 SERVICE TIME: 12:20 PM LOS: 3 days CEMENT [employer] MAKER assisted patient in completing [employer] paperwork. Patient named cousin, Janessa, as agent. Hard copy of [employer]CP[employer] paperwork placed on patient's green chart and copy sent to Admitting via pneumatic tube system to be scanned into [employer]. Patient provided with original document and additional copy. SIGNATURE: Isi Mills PATIENT NAME: Sherman Marie DATE: May 26, 2023 TIME: 12:20 PM PAGER/CONTACT #: [phone] [facility] CBC W Auto Differential pane l (Bld)on 05-26-2023 Basophils (Bld) [#/Vol] 10*3/uL Normal <0.11 [facility] Comment on above: Order Comment: Speci men Type: BLOOD SPECIMENOrdering Facility: [facility] Address: [address] [place] [address] Performed By: #### 5 7021-8 ####[facility] [id number] [place] [address] [place] Basophils/100 WBC (Bld) 0.3 % [facility] [facility] Comment on above: Order Comment: Speci men Type: BLOOD SPECIMENOrdering Facility: [facility] Address: [address] [place] [address] Performed By: #### 5 7021-8 ####[facility] [id number] [place] [address] [place] Differential cell count method Nom (Bld) Auto Normal [facility] Comment on above: Order Comment: Speci men Type: BLOOD SPECIMENOrdering Facility: [facility] Address: [address] [place] [address] Performed By: #### 5 7021-8 ####[facility] [id number] [place] [address] [place] Eosinophils (Bld) [#/Vol] 0.05 10*3/uL Normal <0.46 [facility] Comment on above: Order Comment: Speci men Type: BLOOD SPECIMENOrdering Facility: [facility] Address: [address] [place] [address] Performed By: #### 5 7021-8 ####[facility] [id number] [place] [address] [place] Eosinophils/100 WBC (Bld) 0.8 % Normal [facility] Comment on above: Order Comment: Speci men Type: BLOOD SPECIMENOrdering Facility: [facility] Address: [address] [place] [address] Performed By: #### 5 7021-8 ####[facility] [id number] [place] [address] [place] Erythrocyte distribution width (RBC) [Ratio] 15.7 % High 11.5-15.0 [facility] Comment on above: Order Comment: Speci men Type: BLOOD SPECIMENOrdering Facility: [facility] Address: [address] [place] [address] Performed By: #### 5 7021-8 ####[facility] [id number] [place] [address] [place] Hematocrit (Bld) [Volume fraction] 35.2 % Low 39.0-51.0 [facility] Comment on above: Order Comment: Speci men Type: BLOOD SPECIMENOrdering Facility: [facility] Address: [address] [place] [address] Performed By: #### 5 7021-8 ####[facility] [id number] [place] [address] [place] Hemoglobin (Bld) [Mass/Vol] 10.2 g/dL Low 13.0-17.0 [facility] Comment on above: Order Comment: Speci men Type: BLOOD SPECIMENOrdering Facility: [facility] Address: [address] [place] [address] Performed By: #### 5 7021-8 ####[facility] [id number] [place] [address] [place] Immature granulocytes (Bld) [#/Vol] 10*3/uL Normal <0.10 [facility] Comment on above: Order Comment: Speci men Type: BLOOD SPECIMENOrdering Facility: [facility] Address: [address] [place] [address] Performed By: #### 5 7021-8 ####[facility] [id number] [place] [address] [place] Immature granulocytes/100 WBC (Bld) 0.3 % Normal [facility] Comment on above: Order Comment: Speci men Type: BLOOD SPECIMENOrdering Facility: [facility] Address: [address] [place] [address] Performed By: #### 5 7021-8 ####[facility] [id number] [place] [address] [place] Lymphocytes (Bld) [#/Vol] 0.69 10*3/uL Low 1.00-4.00 [facility] Comment on above: Order Comment: Speci men Type: BLOOD SPECIMENOrdering Facility: [facility] Address: [address] [place] [address] Performed By: #### 5 7021-8 ####[facility] [id number] [place] [address] [place] Lymphocytes/100 WBC (Bld) 10.6 % Normal [facility] Comment on above: Order Comment: Speci men Type: BLOOD SPECIMENOrdering Facility: [facility] Address: [address] [place] [address] Performed By: #### 5 7021-8 ####[facility] [id number] [place] [address] [place] MCH (RBC) [Entitic mass] 27.6 pg Normal 26.0-34.0 [facility] Comment on above: Order Comment: Speci men Type: BLOOD SPECIMENOrdering Facility: [facility] Address: [address] [place] [address] Performed By: #### 5 7021-8 ####[facility] [id number] [place] [address] [place] MCHC (RBC) [Mass/Vol] 29.0 g/dL Low 30.5-36.0 [facility] Comment on above: Order Comment: Speci men Type: BLOOD SPECIMENOrdering Facility: [facility] Address: [address] [place] [address] Performed By: #### 5 7021-8 ####[facility] [id number] [place] [address] [place] MCV (RBC) [Entitic vol] 95.4 fL Normal 80.0-100.0 [facility] Comment on above: Order Comment: Speci men Type: BLOOD SPECIMENOrdering Facility: [facility] Address: [address] [place] [address] Performed By: #### 5 7021-8 ####[facility] [id number] [place] [address] [place] Monocytes (Bld) [#/Vol] 0.70 10*3/uL Normal <0.87 [facility] Comment on above: Order Comment: Speci men Type: BLOOD SPECIMENOrdering Facility: [facility] Address: [address] [place] [address] Performed By: #### 5 7021-8 ####[facility] [id number] [place] [address] [place] Monocytes/100 WBC (Bld) 10.7 % Normal [facility] Comment on above: Order Comment: Speci men Type: BLOOD SPECIMENOrdering Facility: [facility] Address: [address] [place] [address] Performed By: #### 5 7021-8 ####[facility] [id number] [place] [address] [place] Neutrophils (Bld) [#/Vol] 5.05 10*3/uL Normal 1.45-7.50 [facility] Comment on above: Order Comment: Speci men Type: BLOOD SPECIMENOrdering Facility: [facility] Address: [address] [place] [address] Performed By: #### 5 7021-8 ####[facility] [id number] [place] [address] [place] Neutrophils/100 WBC (Bld) 77.3 % Normal [facility] Comment on above: Order Comment: Speci men Type: BLOOD SPECIMENOrdering Facility: [facility] Address: [address] [place] [address] Performed By: #### 5 7021-8 ####[facility] [id number] [place] [address] [place] Nucleated RBC (Bld) [#/Vol] 10*3/uL Normal <0.01 [facility] Comment on above: Order Comment: Speci men Type: BLOOD SPECIMENOrdering Facility: [facility] Address: [address] [place] [address] Performed By: #### 5 7021-8 ####[facility] [id number] [place] [address] [place] Nucleated RBC/100 WBC (Bld) [Ratio] 0.0 /100 WBC Normal [facility] Comment on above: Order Comment: Speci men Type: BLOOD SPECIMENOrdering Facility: [facility] Address: [address] [place] [address] Performed By: #### 5 7021-8 ####[facility] [id number] [place] [address] [place] Platelet mean volume (Bld) [Entitic vol] 10.8 fL Normal 9.0-12.7 [facility] Comment on above: Order Comment: Speci men Type: BLOOD SPECIMENOrdering Facility: [facility] Address: [address] [place] [address] Performed By: #### 5 7021-8 ####[facility] [id number] [place] [address] [place] Platelets (Bld) [#/Vol] 189 10*3/uL Normal 150-400 [facility] Comment on above: Order Comment: Speci men Type: BLOOD SPECIMENOrdering Facility: [facility] Address: [address] [place] [address] Performed By: #### 5 7021-8 ####[facility] [id number] [place] [address] [place] RBC (Bld) [#/Vol] 3.69 10*6/uL Low 4.20-6.00 [facility] Comment on above: Order Comment: Speci men Type: BLOOD SPECIMENOrdering Facility: [facility] Address: [address] [place] [address] Performed By: #### 5 7021-8 ####[facility] [id number] [address] [address] [place] WBC (Bld) [#/Vol] 6.53 10*3/uL Normal 3.70-11.00 [facility] Comment on above: Order Comment: Speci men Type: BLOOD SPECIMENOrdering Facility: [facility] Address: [address] [place] [address] Performed By: #### 5 7021-8 ####[facility] [id number] [place] [id number] [place] CBC panel Auto (Bld)on 05-26 Erythrocyte distribution width (RBC) [Ratio] 15.5 % High 11.5-15.0 [facility] Comment on above: Order Comment: Speci men Type: BLOOD SPECIMEN [facility] Address: [address] [place] [address] Performed By: #### 2 4323-8, 62304-6, 2777-1 #### [facility] [id number] [address] [place] [address] [place] Hematocrit (Bld) [Volume fraction] 34.9 % Low 39.0-51.0 [facility] Comment on above: Order Comment: Speci men Type: BLOOD SPECIMEN [facility] Address: [address] [place] [address] Performed By: #### 2 4323-8, 86544-4, 2777-1 #### [facility] [id number] [address] [place] [address] [place] Hemoglobin (Bld) [Mass/Vol] 10.4 g/dL Low 13.0-17.0 [facility] Comment on above: Order Comment: Speci men Type: BLOOD SPECIMEN [facility] Address: [address] [place] [address] Performed By: #### 2 4323-8, 36655-7, 2777-1 #### [facility] [id number] [address] [place] [address] [place] MCH (RBC) [Entitic mass] 27.7 pg Normal 26.0-34.0 [facility] Comment on above: Order Comment: Speci men Type: BLOOD SPECIMEN [facility] Address: [address] [place] [address] Performed By: #### 2 4323-8, , 2776-04 #### [facility] [id number] [address] [place] [address] [place] MCHC (RBC) [Mass/Vol] 29.8 g/dL Low 30.5-36.0 [facility] Comment on above: Order Comment: Speci men Type: BLOOD SPECIMEN [facility] Address: [address] [place] [address] Performed By: #### 2 4323-8, , 2776-04 #### [facility] [id number] [address] [place] [address] [place] MCV (RBC) [Entitic vol] 93.1 fL Normal 80.0-100.0 [facility] Comment on above: Order Comment: Speci men Type: BLOOD SPECIMEN [facility] Address: [address] [place] [address] Performed By: #### 2 4323-8, , 2776-04 #### [facility] [id number] [address] [place] [address] [place] Nucleated RBC (Bld) [#/Vol] 10*3/uL Normal <0.01 [facility] Comment on above: Order Comment: Speci men Type: BLOOD SPECIMEN [facility] Address: [address] [place] [address] Performed By: #### 2 4323-8, , 2776-04 #### [facility] [id number] [address] [place] [address] [place] Platelet mean volume (Bld) [Entitic vol] 10.8 fL Normal 9.0-12.7 [facility] Comment on above: Order Comment: Speci men Type: BLOOD SPECIMEN [facility] Address: [address] [place] [address] Performed By: #### 2 4323-8, , 2776-04 #### [facility] [id number] [address] [place] [address] [place] Platelets (Bld) [#/Vol] 192 10*3/uL Normal 150-400 [facility] Comment on above: Order Comment: Speci men Type: BLOOD SPECIMEN [facility] Address: [address] [place] [address] Performed By: #### 2 4323-8, , 2776-04 #### [facility] [id number] [address] [place] [address] [place] RBC (Bld) [#/Vol] 3.75 10*6/uL Low 4.20-6.00 [facility] Comment on above: Order Comment: Speci men Type: BLOOD SPECIMEN [facility] Address: [address] [place] [address] Performed By: #### 2 4323-8, , 2776-04 #### [facility] [id number] [address] [place] [address] [place] WBC (Bld) [#/Vol] 8.42 10*3/uL Normal 3.70-11.00 [facility] Comment on above: Order Comment: Speci men Type: BLOOD SPECIMEN [facility] Address: [address] [place] [address] Performed By: #### 2 4323-8, , 2776-04 #### [facility] [id number] [address] [place] [address] [place] Comprehensive metabolic 2000 panelon 05-26-2023 Albumin [Mass/Vol] 3.9 g/dL Normal 3.9-4.9 [facility] Comment on above: Order Comment: Speci men Type: BLOOD SPECIMEN [facility] Address: [address] [place] [address] Performed By: #### 2 4323-8, , 2776- #### [facility] [id number] [address] [place] [address] [place] ALP [Catalytic activity/Vol] 43 U/L Normal 38-113 [facility] Comment on above: Order Comment: Speci men Type: BLOOD SPECIMEN [facility] Address: [address] [place] [address] Performed By: #### 2 4323-8, , 2776-04 #### [facility] [id number] [address] [place] [address] [place] ALT [Catalytic activity/Vol] 14 U/L Normal 10-54 [facility] Comment on above: Order Comment: Speci men Type: BLOOD SPECIMEN [facility] Address: [address] [place] [address] Performed By: #### 2 4323-8, , 2776-04 #### [facility] [id number] [address] [place], [place] [id number] [place] Anion gap [Moles/Vol] 8 mmol/L Low 9-18 [facility] Comment on above: Order Comment: Speci men Type: BLOOD SPECIMEN [facility] Address: [address] [place] [address] Performed By: #### 2 4323-8, 29420-5, 2776- #### [facility] [id number] [address] [place] [address] [place] AST [Catalytic activity/Vol] 15 U/L Normal 14-40 [facility] Comment on above: Order Comment: Speci men Type: BLOOD SPECIMEN [facility] Address: [address] [place] [address] Performed By: #### 2 4323-8, 48769-5, 2776-04 #### [facility] [id number] [address] [place] [address] [place] Bilirubin [Mass/Vol] 1.3 mg/dL Normal 0.2-1.3 [facility] Comment on above: Order Comment: Speci men Type: BLOOD SPECIMEN [facility] Address: [address] [place] [address] Performed By: #### 2 4323-8, , 2776-04 #### [facility] [id number] [address] [place] [address] [place] Calcium [Mass/Vol] 8.7 mg/dL Normal 8.5-10.2 [facility] Comment on above: Order Comment: Speci men Type: BLOOD SPECIMEN [facility] Address: [address] [place] [address] Performed By: #### 2 4323-8, , 2776-04 #### [facility] [id number] [address] [place] [address] [place] Chloride [Moles/Vol] 100 mmol/L Normal 97-105 [facility] Comment on above: Order Comment: Speci men Type: BLOOD SPECIMEN [facility] Address: [address] [place] [address] Performed By: #### 2 4323-8, 54001-3, 2776-04 #### [facility] [id number] [address] [place] [address] [place] CO2 [Moles/Vol] 35 mmol/L High 22-30 [facility] Comment on above: Order Comment: Speci men Type: BLOOD SPECIMEN [facility] Address: [address] [place] [address] Performed By: #### 2 4323-8, 74094-5, 2776-04 #### [facility] [id number] [address] [place] [address] [place] Creatinine [Mass/Vol] 1.46 mg/dL High 0.73-1.22 [facility] Comment on above: Order Comment: Speci men Type: BLOOD SPECIMEN [facility] Address: [address] [place] [address] Performed By: #### 2 4323-8, , 2776-04 #### [facility] [id number] [address] [place] [address] [place] Creatinine and Glomerular filtration rate.predicted panel (S/P/Bld) 60 mL/min/1.73m??? Normal >=60 [facility] Comment on above: Order Comment: Van maier Type: BLOOD SPECIMEN [facility]: [facility] Address: [address] [place] [address] Result Comment: Hiral mated Glomerular Filtration Rate (eGFR) is calculated using the 2020 CKD-EPI creatinine equation. This equation utilizes serum creatinine, sex, and age as parameters. The creatinine assay has traceable calibration to isotope dilution-mass spectrometry. Refer to KDIGO guidelines for clinical interpretation. In patients with unstable renal function, e.g. those with acute kidney injury, the eGFR may not accurately reflect actual GFR. Performed By: #### 2 4323-8, 56392-7, 2776-04 #### [facility]IA [id number] [address] [place] [address] [place] Glucose [Mass/Vol] 128 mg/dL High 74-99 [facility] Comment on above: Order Comment: Speci men Type: BLOOD SPECIMEN [facility]ing [facility] Address: [address] [place], [place] [address] Result Comment: The [place] [employer] (ADA) provides guidance for cutoff values for fasting glucose and random glucose. The ADA defines fasting as no caloric intake for at least 8 hours. Fasting plasma glucose results between 100 to 125 mg/dL indicate increased risk for diabetes (prediabetes). Fasting plasma glucose results greater than or equal to 126 mg/dL meet the criteria for diagnosis of diabetes. In the absence of unequivocal hyperglycemia, results should be confirmed by repeat testing. In a patient with classic symptoms of hyperglycemia or hyperglycemic crisis, random plasma glucose results greater than or equal to 200 mg/dL meet the criteria for diagnosis of diabetes. Reference: Standards of Medical Care in Diabetes 2016, [place] [employer]. Diabetes Care. 2016.39(Suppl 1). Performed By: #### 2 4323-8, , 2776-04 #### [facility]IA [id number] [address] [place] [address] [place] Potassium [Moles/Vol] 3.6 mmol/L Low 3.7-5.1 [facility] Comment on above: Order Comment: Speci men Type: BLOOD SPECIMEN [facility] Address: [address] [place] [address] Performed By: #### 2 4323-8, , 2776-04 #### [facility]IA [id number] [address] [place] [address] [place] Protein [Mass/Vol] 7.7 g/dL Normal 6.3-8.0 [facility] Comment on above: Order Comment: Speci men Type: BLOOD SPECIMEN [facility]ing [facility] Address: [address] [place], [place] [address] Performed By: #### 2 4323-8, , 2776-04 #### [facility] CLIA [id number] [address] [place], [place] [id number] [place] Sodium [Moles/Vol] 143 mmol/L Normal 136-144 [facility] Comment on above: Order Comment: Speci men Type: BLOOD SPECIMEN [facility]ing [facility]: [facility] Address: [address] [place] [address] Performed By: #### 2 4323-8, 68468-9, 2776-04 #### [facility] CLIA [id number] [address] [place], [place] [address] [place] [id number] [place] Urea nitrogen [Mass/Vol] 9 mg/dL Normal 9-24 [facility] Comment on above: Order Comment: Speci men Type: BLOOD SPECIMEN [facility]ing [facility]: [facility] Address: [address] [place] [address] Performed By: #### 2 4323-8, 24132-5, 27710-23 #### [facility] CLIA [id number] [address] [place], [place] [address] [place] ECHOon 05-26-2023 Echocardiography Echocardiography Report: Transthoracic Echo [facility] Bedside Date of service: 05/26/2023 12:27:45 PM PRESS OPERATOR Ordering physician: MICHAEL ENCISO Indication: Post-op Gastric Surgery Technologist: Sonja Rodriguez Interpreting physician: Dean Vargas MD PATIENT: Name: SHERMAN MARIE : 1980 Age: 43 years Gender: M Primary rhythm: sinus. Height: 182.90 cm BSA: 3.71 m Weight: 270.80 kg BMI: 81.0 kg/m Heart rate 71 bpm Blood pressure 144/69 mmHg Technically difficult exam due to post op, suboptimal positioning and body habitus. Color Doppler was utilized to interrogate the cardiac valves assessed and spectral Doppler was utilized to determine the flow velocities and pressure gradients reported in this exam. MEASUREMENTS: Value Indexed Normal Max aortic dimension 2.8 cm Ao < 3.8 Left atrial volume 101 ml (4ch A-L) 27 ml/m Kimberley <= 34 Ejection Fraction 60 % (visual est.) EF > 52 FINDINGS: LEFT VENTRICLE The left ventricle is normal in size. Left ventricular systolic function is normal. Grade III left ventricular diastolic dysfunction. Mitral annular lateral E/e': 10.1. Mitral annular septal E/e': 10.7. Wall Motion: The entire anterior wall and entire inferior wall are not visualized. All remaining scored segments are normal. RIGHT VENTRICLE The right ventricle is mildly dilated. Right ventricular systolic function is mildly decreased. RV systolic tissue Doppler velocity is 13.3 cm/s. Estimated right ventricular systolic pressure is not reported due to an insufficient tricuspid regurgitation signal. Estimated right atrial pressure is 15 mmHg based on IVC assessment. LEFT ATRIUM The left atrial cavity is normal in size. RIGHT ATRIUM Unable to reliably measure RA volume due to technical limitations. Inferior Vena Cava: The inferior vena cava appears dilated measuring 2.7 cm. The vessel decreases less than 50 percent with inspiration. MITRAL VALVE There is no mitral valve regurgitation. There is mild thickening. The pressure half time is 44 msec. The peak mitral E/A ratio is 2.18. The average mitral E/e' ratio is 10.4. The mitral flow deceleration time is 151 msec. TRICUSPID VALVE There is trace tricuspid valve regurgitation. There is no thickening. AORTIC VALVE There is no aortic valve regurgitation. There is no thickening. PULMONIC VALVE There is trace (trace - 1+) pulmonic valve regurgitation. There is no thickening. AORTA The visualized aorta is normal in size. Measurements - Mid ascending aorta 2.8 cm. PULMONARY ARTERIES The pulmonary arteries are unseen or not interrogated. INTERVENTRICULAR SEPTUM There is no flow through the interventricular septum as detected by Doppler. PERICARDIUM There is a trivial pericardial effusion. CONCLUSIONS: - Technically difficult exam due to post op, suboptimal positioning and body habitus. - Exam indication: Post-op Gastric Surgery - The left ventricle is normal in size. Left ventricular systolic function is normal. EF = 60 5% (visual est.) Grade III left ventricular diastolic dysfunction. - The right ventricle is mildly dilated. Right ventricular systolic function is mildly decreased. The right ventricle is not very well-seen. Suspect some degree of pulmonary hypertension based on RV morphology and interventricular septal motion. - Difficulty assessing morphology of leaflets. - Estimated right ventricular systolic pressure is not reported due to an insufficient tricuspid regurgitation signal. Estimated right atrial pressure is 15 mmHg based on IVC assessment. - Suboptimal images due to difficult acoustic windows. - There are no significant valvular abnormalities. - The patient has not had a prior CC echocardiographic exam for comparison. * * * Final * * * [facility] [employer] Image : [id number] Normal [facility] Gas and Carbon monoxide pane l (BldV)on 05-26-2023 Base excess Calc (BldV) [Moles/Vol] 10 mmol/L High 0-2 [facility] Comment on above: Order Comment: Speci men Type: BLOOD SPECIMEN [facility]ing [facility]: [facility] Address: [address] [place] [address] Performed By: #### 2 4323-8, 52028-2, 2777-1 #### [facility] CLIA [id number] [address] [place] [address] [place] Body temperature 98.6 [degF] Normal [facility] Comment on above: Order Comment: Speci men Type: BLOOD SPECIMEN Ordering Facility: [facility] Address: [address] [place] [address] Performed By: #### 2 4323-8, 74930-2, 2777-1 #### [facility] CLIA [id number] [address] [place] [address] [place] Calcium.ionized (Bld) [Mass/Vol] 1.10 mmol/L Normal 1.08-1.30 [facility] Comment on above: Order Comment: Speci men Type: BLOOD SPECIMEN Ordering Facility: [facility] Address: [address] [place] [address] Performed By: #### 2 4323-8, 10866-0, 2777-1 #### [facility] CLIA [id number] [address] [place] [address] [place] Calcium.ionized adjusted to pH 7.4 (BldA) [Moles/Vol] 1.05 mmol/L Low 1.08-1.30 [facility] Comment on above: Order Comment: Speci men Type: BLOOD SPECIMEN Ordering Facility: [facility] Address: [address] [place] [address] Performed By: #### 2 4323-8, 16647-3, 2776-04 #### [facility] CLIA [id number] [address] [place] [address] [place] Carboxyhemoglobin (BldV) [Mass fraction] 2.0 % Normal 0.0-2.0 [facility] Comment on above: Order Comment: Speci men Type: BLOOD SPECIMEN Ordering Facility: [facility] Address: [address] [place] [address] Result Comment: Carb oxyhemoglobin Reference Range for Smokers: 2.0-8.0% Performed By: #### 2 4323-8, , 2776-04 #### [facility] CLIA [id number] [address] [place] [address] [place] CO2 (BldV) [Partial pressure] 79 mm[Hg] High 42-55 [facility] Comment on above: Order Comment: Speci men Type: BLOOD SPECIMEN Ordering Facility: [facility] Address: [address] [place] [address] Performed By: #### 2 4323-8, , 2776-04 #### [facility] CLIA [id number] [address] [place] [address] [place] Glucose [Mass/Vol] 109 mg/dL High 60-105 [facility] Comment on above: Order Comment: Speci men Type: BLOOD SPECIMEN Ordering Facility: [facility] Address: [address] [place] [address] Performed By: #### 2 4323-8, 82505-3, 2776-04 #### [facility] CLIA [id number] [address] [place] [address] [place] HCO3 (Bld) [Moles/Vol] 39 mmol/L High 24-28 [facility] Comment on above: Order Comment: Speci men Type: BLOOD SPECIMEN Ordering Facility: [facility] Address: [address] [place] [address] Performed By: #### 2 4323-8, 19245-0, 2776-04 #### [facility] CLIA [id number] [address] [place] [address] [place] Hematocrit (Bld) [Volume fraction] 34.5 % Low 39.0-51.0 [facility] Comment on above: Order Comment: Speci men Type: BLOOD SPECIMEN Ordering Facility: [facility] Address: [address] [place] [address] Performed By: #### 2 4323-8, 20453-9, 2776-04 #### [facility] CLIA [id number] [address] [place] [address] [place] Hemoglobin (Bld) [Mass/Vol] 11.2 g/dL Low 13.0-17.0 [facility] Comment on above: Order Comment: Speci men Type: BLOOD SPECIMEN Ordering Facility: [facility] Address: [address] [place] [address] Performed By: #### 2 4323-8, , 2776-04 #### [facility] CLIA [id number] [address] [place] [address] [place] Lactate [Moles/Vol] 1.3 mmol/L Normal 0.5-2.2 [facility] Comment on above: Order Comment: Speci men Type: BLOOD SPECIMEN Ordering Facility: [facility] Address: [address] [place] [address] Performed By: #### 2 4323-8, 10505-8, 2776-04 #### [facility] CLIA [id number] [address] [place] [address] [place] Methemoglobin (Bld) [Mass fraction] 1.1 % Normal 0.0-1.5 [facility] Comment on above: Order Comment: Speci men Type: BLOOD SPECIMEN Ordering Facility: [facility] Address: [address] [place], [place] [id number] Performed By: #### 2 4323-8, 46830-9, 2776-04 #### [facility] CLIA [id number] [address] [place] [address] [place] O2 THERAPY RA=Room Air Normal [facility] Comment on above: Order Comment: Speci men Type: BLOOD SPECIMEN Ordering Facility: [facility] Address: [address] [place], [place] [address] Result Comment: prin ter not working Performed By: #### 2 4323-8, 99554-3, 2776-04 #### [facility] CLIA [id number] [address] [place] [address] [place] Oxygen (BldV) [Partial pressure] 46 mm[Hg] High 35-45 [facility] Comment on above: Order Comment: Speci men Type: BLOOD SPECIMEN Ordering Facility: [facility] Address: [address] [place] [address] Performed By: #### 2 4323-8, , 2776-04 #### [facility] CLIA [id number] [address] [place] [address] [place] Oxygen saturation in Venous blood 75 % Normal 60-85 [facility] Comment on above: Order Comment: Speci men Type: BLOOD SPECIMEN Ordering Facility: [facility] Address: [address] [place], [place] [address] Performed By: #### 2 4323-8, , 2776-04 #### [facility] CLIA [id number] [address] [place], [place] [address] [place] Oxyhemoglobin (BldV) [Mass fraction] 73 % Normal 60-85 [facility] Comment on above: Order Comment: Speci men Type: BLOOD SPECIMEN Ordering Facility: [facility] Address: [address] [place], [place] [address] Performed By: #### 2 4323-8, , 2776-04 #### [facility] CLIA [id number] [address] [place], [place] [address] [place] pH (BldV) 7.31 [pH] Low 7.32-7.42 [facility] Comment on above: Order Comment: Speci men Type: BLOOD SPECIMEN Ordering Facility: [facility] Address: [address] [place] [address] Performed By: #### 2 4323-8, , 2776-04 #### [facility] CLIA [id number] [address] [place] [address] [place] Potassium [Moles/Vol] 3.3 mmol/L Low 3.5-5.0 [facility] Comment on above: Order Comment: Speci men Type: BLOOD SPECIMEN Ordering Facility: [facility] Address: [address] [place] [address] Performed By: #### 2 4323-8, , 2776-04 #### [facility] CLIA [id number] [address] [place] [address] [place] Sodium [Moles/Vol] 143 mmol/L Normal 136-144 [facility] Comment on above: Order Comment: Speci men Type: BLOOD SPECIMEN Ordering Facility: [facility] Address: [address] [place] [address] Performed By: #### 2 4323-8, , 2776-04 #### [facility] CLIA [id number] [address] [place], [place] [address] [place] Magnesium SerPl-mCncon 05-26 Magnesium [Mass/Vol] 2.1 mg/dL Normal 1.7-2.3 [facility] Comment on above: Order Comment: Speci men Type: BLOOD SPECIMENOrdering Facility: [facility] Address: [address] [place] [address] Performed By: #### 2 777-1, 01662-5, 21820-1 ####[facility] [id number] [place] [address] [place] Magnesium [Mass/Vol] 2.1 mg/dL Normal 1.7-2.3 [facility] Comment on above: Order Comment: Van maier Type: BLOOD SPECIMEN Ordering Facility: [facility] Address: [address] [place] [address] Performed By: #### 2 4323-8, 46975-1, 2777-1 #### [facility] CLIA [id number] [address] [place] [address] [place] [address] [place] PT EDon 05-26-2023 PT ED HNO ID: [id number] Author: MATTEO VAUGHN DTR Service: Nutrition Therapy Author Type: Strategic Sourcing Specialist Type: Patient Education Filed: 05/26/2023 08:13 Note Text: NUTRITION THERAPY PATIENT EDUCATION SERVICE DATE: 05/26/2023 SERVICE TIME: 811 TOPIC: Exemption from nutrition education: Patient not ready to learn at this time due to patient is currently in the ICU. Will reorder education and complete prior to discharge on RNF. MNT Billing: $ Routine Care : 1-15 minutes SIGNATURE: Matteo Vaughn DTR PATIENT NAME: Sherman Marie DATE: May 26, 2023 TIME: 8:11 AM PAGER: Normal [facility] PT panel Coag (PPP)on 2023 INR Coag (PPP) [Relative time] 1.1 {INR} Normal 0.9-1.3 [facility] Comment on above: Order Comment: Van maier Type: BLOOD SPECIMEN Ordering Facility: [facility] Address: [address] [place] [address] Result Comment: Amita min K Antagonist (VKA) Therapeutic Range: INR 2 to 3 (Target INR of 2.5) Note: For patients treated with VKA drugs, such as warfarin, the [employer] 2012 Guideline recommends a therapeutic INR range of 2 to 3 (target INR of 2.5). This recommendation includes high-risk patients with antiphospholipid syndrome with previous arterial or venous thromboembolism, current-generation mechanical or bioprosthetic aortic heart valve replacement. Note: Patients with mechanical aortic valve replacement and additional risk factors for thromboembolic events (atrial fibrillation, previous thromboembolism, LV dysfunction, hypercoagulable conditions) or an older generation mechanical AVR (i.e., ball in-Cage) or any mechanical MVR should have a INR therapeutic range of 2.5 to 3.5 (target INR of 3). Naty GH, et al. Chest 2012, 141:7S-47S Francia RA, et al. [facility] 2017, 70: 252-289 Performed By: #### 2 4323-8, 76373-2, 2777-1 #### [facility] CLIA [id number] [address] [place] [address] [place] PT Coag (PPP) [Time] 11.4 s Normal 9.7-13.0 [facility] Comment on above: Order Comment: Van maier Type: BLOOD SPECIMEN Ordering Facility: [facility] Address: [address] [place] [address] Performed By: #### 2 4323-8, 88563-8, 2777-1 #### [facility] CLIA [id number] [address] [place] [address] [place] Phosphate SerPl-mCncon 05-26 Phosphate [Mass/Vol] 3.1 mg/dL Normal 2.7-4.8 [facility] Comment on above: Order Comment: Van maier Type: BLOOD SPECIMENOrdering Facility: [facility] Address: [address] [place] [address] Performed By: #### 2 777-1, 88765-7, ####[facility] [id number] [place] [address] [place] Phosphate [Mass/Vol] 2.3 mg/dL Low 2.7-4.8 [facility] Comment on above: Order Comment: Van maier Type: BLOOD SPECIMEN Ordering Facility: [facility] Address: [address] [place] [address] Performed By: #### 2 4323-8, 77578-9, 2777-1 #### [facility] CLIA [id number] [address] [place] [address] [place] [address] [place] THERAPY NTon 05-26-2023 THERAPY NT HNO ID: [id number] Author: GLORIA BROWER, OT/L Service: Occupational Therapy Author Type: Occupational Therapist Type: Therapy (PT/OT/Speech/Resp) Filed: 05/26/2023 14:00 Note Text: Occupational Therapy Treatment Summary SERVICE DATE: 05/26/2023 SERVICE TIME: 1310 to 1340 ROOM: [place] [address] OT 6 Clicks Score: 16 DISCHARGE RECOMMENDATIONS Unable to determine due to critical care status Recommended Discharge Disposition Comments: likely progression to home Anticipated Discharge Needs: Physical Assist at Home Physical Assist at Home for: Cleaning, Laundry, Meals, Shopping, Transportation, Self Care, Transfers, Ambulation ASSESSMENT Response to Therapy Interventions: Good Participation in Activities, Low Activity Tolerance PRECAUTIONS Abdominal, Lines/Tubes/Drains, Fall Risk CURRENT HOSPITAL COURSE A 43 y/o male s/p planned sleeve gastrectomy on 05/24/23. . Pulmonology was consulted for acute hypercarbia requiring BIPAP in the SICU and post-op respiratory optimization. Relevant Past Medical History: PMH morbid obesity BMI 86.4, ISI on CPAP, and lymphedema HOME LIVING Patient Lives With: Self/Alone Assistance Available: Bomb Technician Entry To Home: No Stairs Tub/Shower Type: walk in shower with grab bars Laundry: home health aide assists PRIOR FUNCTIONAL LEVEL Required Assistance Assistance Required With: Cleaning, Laundry, Shopping, Transportation, Self Care, Meals Pt reports that he was receiving help from a home health aide who assisted with dressing, bathing, cooking, cleaning etc. INSTRUCTIONAL LEADER Baseline Cognition: Oriented to self, Oriented to place, Oriented to time SUBJECTIVE Do you mind if I stand here for a minute before getting back in bed? COGNITION Cog 6 Start of Session Total Points (Max Score = 24): 24 (05/26/23) Cog 6 End of Session Total Points (Max Score = 24): 24 (05/26/23) Confusion Assessment Method (CAM - ICU Score): Negative (05/26/23) THERAPY DIAGNOSIS Reduced mobility-other, Decreased activities of daily living (ADL), Muscle Weakness (generalized) TREATMENT INTERVENTIONS Self Half-Way Management (09101) Timed Code Treatment (minutes): 30 Skilled Treatment Time (minutes): 30 TRAINING AND EDUCATION PROVIDED Activity Adaptation/Pilot y Strategies, Bed Mobility, Benefits of In-Hospital Mobility, Disease Specific Education, Grooming Tasks, Health Literacy, Health Management of Chronic Conditions, Home Set-up/Modifications, IADLs/Home Management, Identification of Systems of Support, Visual Scanning/Attention Activities, Transfer - Bed to Chair, Transfer - Sit to Stand, Standing Balance to Improve Hume with ADLs/Self-Care, Sitting Balance to Improve Hume with ADLs/Self-Care, Role of Occupational Therapy, Precautions/Restrictio ns THERAPEUTIC SKILLS USED Therapeutic Use of Self, Teach-Back for Education, Physical Assist, Management of Critical Lines, Tubes and/or Drains, Cues for Sequencing/Proper Technique for Activity, Cuing Tactile, Cuing Verbal, Cuing Visual, Activity Dosing FUNCTIONAL STATUS Activities of Daily Living Assist Level Additional Information Feeding Set Up Grooming Set Up Bathing Upper Body Moderate Assistance Bathing Lower Body Maximal Assistance Dressing Upper Body Moderate Assistance Dressing Lower Body Maximal Assistance Toileting Maximal Assistance Mobility Assist Level Additional Information Bed Mobility Rolling: Minimal Assistance Sit To Supine: Moderate Assistance Sit to Stand Minimal Assistance Stand to Sit Minimal Assistance Bed to Chair Minimal Assistance Bed To Chair Transfer Type: Stepping Bed To Chair Transfer Equipment: (Bariatric standard walker) Toilet/Commode Shower Functional Mobility GOALS Patient will demonstrate progress with self-care, cognitive and/or coping needs identified to allow safe discharge to home with available support and/or physical assistance. Progress Toward Goals: Progressing as expected Rehab Potential: Good PLAN OT Frequency: 3 Times Per Week Treatment Interventions: Education, Self Care/Home Management, Energy Conservation Training, Joint Mobility, Strengthening, Functional Mobility Training, Balance Training Plan for Next Visit: Bathing Training, Bed Mobility, Chair/Commode Transfer Training, Dressing Training SIGNATURE: Gloria Brower OT/L PATIENT NAME: Sherman Marie DATE: May 26, 2023 TIME: 2:00 PM Normal [facility] NT HNO ID: [id number] Author: GERALDINE CALDERON, PT Service: Physical Therapy Author Type: Physical Therapist Type: Therapy (PT/OT/Speech/Resp) Filed: 05/26/2023 11:56 Note Text: Physical Therapy Evaluation Summary SERVICE DATE: 05/26/2023 SERVICE TIME: 909 to 938 ROOM: [place] [address] PT 6 Clicks Score: 16 DISCHARGE RECOMMENDATIONS Unable to determine due to critical care status Recommended Discharge Equipment: To Be Determined ASSESSMENT Response to Therapy Interventions: Good Participation in Activities Pt presents to therapy with decreased functional mobility d/t recent hospital course and PLOF. Pt was feeling ready to get out of bed, and demonstrated bed mobility with Irene-CGA. Pt was impulsive and eager to stand, in which education on proper technique and sequencing was given. Pt was able to transfer from the bed to the ke- chair with MinAx2 arm in arm. Pt had good LE strength and was able to properly position himself in the chair. Unable to determine d/c rec d/t further functional moblity needed to be demonstrated to ensure safety when at home. PRECAUTIONS Abdominal, Lines/Tubes/Drains, Fall Risk CURRENT HOSPITAL COURSE A 43 y/o male s/p planned sleeve gastrectomy on 05/24/23. . Pulmonology was consulted for acute hypercarbia requiring BIPAP in the SICU and post-op respiratory optimization. Relevant Past Medical History: PMH morbid obesity BMI 86.4, ISI on CPAP, and lymphedema HOME LIVING Patient Lives With: Self/Alone Assistance Available: Bomb Technician Entry To Home: No Stairs Tub/Shower Type: walk in shower with grab bars Laundry: home health aide assists PRIOR FUNCTIONAL LEVEL Required Assistance Assistance Required With: Cleaning, Laundry, Shopping, Transportation, Self Care, Meals Pt reports that he was receiving help from a home health aide who assisted with dressing, bathing, cooking, cleaning etc. INSTRUCTIONAL LEADER SUBJECTIVE Pt agreeable to session THERAPY DIAGNOSIS Reduced mobility-other TREATMENT INTERVENTIONS Evaluation, Therapeutic Activity (19857) Timed Code Treatment (minutes): 14 Skilled Treatment Time (minutes): 29 TRAINING AND EDUCATION PROVIDED Anatomy and Impact on Deficits, Bed Mobility, Benefits of In-Hospital Mobility, Expected Functional Level, Falls Prevention, Pain Neuroscience, Positioning, Precautions/Restrictio ns, Role of Physical Therapy, Sitting Balance, Transfers, Standing Balance THERAPEUTIC SKILLS USED Activity Dosing, Assessment of Tolerance Including Vitals Response to Activity, Cues for Sequencing/Proper Technique for Activity, Cuing Verbal, Cuing Visual, Facilitation of Joint Range of Motion, Management of Critical Lines, Tubes and/or Drains, Movement Facilitation, Muscle Activation Facilitation, Physical Assist, Postural Alignment Correction, Teach-Back for Education, Task Analysis Learning FUNCTIONAL STATUS Bed Mobility Rolling: Contact Guard Assistance Supine To Sit: Contact Guard Assistance Scooting: Minimal Assistance Transfers Sit To Stand: Minimal Assistance Stand To Sit: Minimal Assistance Bed to Chair Minimal Assistance Bed To Chair Transfer Type: Stepping Gait Stairs GOALS Patient will demonstrate progress with functional mobility to allow safe discharge to home with available support and/or physical assistance. Ambulate with: Modified Independent Device: Standard Walker Rehab Potential: Good PLAN PT Frequency: 4 Times Per Week Treatment Interventions: Education, Self Care / Home Management, Energy Conservation Training, Joint Mobility, Strengthening, Functional Mobility Training, Balance Training, Neuromuscular Re-education Plan for Next Visit: Pre-gait Activities, Gait Training, Standing Tolerance, Standing Balance SIGNATURE: Charo Tang SPT PATIENT NAME: Sherman Marie DATE: May 26, 2023 TIME: 11:53 AM Supervising therapist was present and guided the care of the patient for the entire session on this date. All documentation was reviewed and agreed upon. Geraldine Calderon, PT Normal [facility] THERAPY NT HNO ID: [id number] Author: GLORIA BROWER OT/L Service: Occupational Therapy Author Type: Occupational Therapist Type: Therapy (PT/OT/Speech/Resp) Filed: 05/26/2023 11:24 Note Text: Occupational Therapy Evaluation Summary SERVICE DATE: 05/26/2023 SERVICE TIME: 1025 to 1107 ROOM: [place] [address] OT 6 Clicks Score: 16 DISCHARGE RECOMMENDATIONS Unable to determine due to critical care status Recommended Discharge Disposition Comments: likely progression to home Anticipated Discharge Needs: Physical Assist at Home Physical Assist at Home for: Cleaning, Laundry, Meals, Shopping, Transportation, Self Care, Transfers, Ambulation ASSESSMENT Response to Therapy Interventions: Good Participation in Activities, Low Activity Tolerance PRECAUTIONS Abdominal, Lines/Tubes/Drains, Fall Risk CURRENT HOSPITAL COURSE A 43 y/o male s/p planned sleeve gastrectomy on 05/24/23. . Pulmonology was consulted for acute hypercarbia requiring BIPAP in the SICU and post-op respiratory optimization. Relevant Past Medical History: PMH morbid obesity BMI 86.4, ISI on CPAP, and lymphedema HOME LIVING Patient Lives With: Self/Alone Assistance Available: Bomb Technician Entry To Home: No Stairs Tub/Shower Type: walk in shower with grab bars Laundry: home health aide assists PRIOR FUNCTIONAL LEVEL Required Assistance Assistance Required With: Cleaning, Laundry, Shopping, Transportation, Self Care, Meals Pt reports that he was receiving help from a home health aide who assisted with dressing, bathing, cooking, cleaning etc. INSTRUCTIONAL LEADER Baseline Cognition: Oriented to self, Oriented to place, Oriented to time SUBJECTIVE I feel like I'm 60% of the way there COGNITION Cog 6 Start of Session Total Points (Max Score = 24): 24 (05/26/23) Cog 6 End of Session Total Points (Max Score = 24): 24 (05/26/23) Confusion Assessment Method (CAM - ICU Score): Negative (05/26/23) THERAPY DIAGNOSIS Reduced mobility-other, Decreased activities of daily living (ADL), Muscle Weakness (generalized) TREATMENT INTERVENTIONS Evaluation, Self Half-Way Management (31266) Timed Code Treatment (minutes): 27 Skilled Treatment Time (minutes): 42 TRAINING AND EDUCATION PROVIDED Activity Adaptation/Pilot y Strategies, Bed Mobility, Benefits of In-Hospital Mobility, Disease Specific Education, Grooming Tasks, Health Literacy, Health Management of Chronic Conditions, Home Set-up/Modifications, IADLs/Home Management, Identification of Systems of Support, Visual Scanning/Attention Activities, Transfer - Bed to Chair, Transfer - Sit to Stand, Standing Balance to Improve Hume with ADLs/Self-Care, Sitting Balance to Improve [place] with ADLs/Self-Care, Role of Occupational Therapy, Precautions/Restrictio ns THERAPEUTIC SKILLS USED Therapeutic Use of Self, Teach-Back for Education, Physical Assist, Management of Critical Lines, Tubes and/or Drains, Cues for Sequencing/Proper Technique for Activity, Cuing Tactile, Cuing Verbal, Cuing Visual, Activity Dosing FUNCTIONAL STATUS Activities of Daily Living Assist Level Additional Information Feeding Set Up Grooming Set Up Bathing Upper Body Moderate Assistance Bathing Lower Body Maximal Assistance Dressing Upper Body Moderate Assistance Dressing Lower Body Maximal Assistance Toileting Maximal Assistance Mobility Assist Level Additional Information Bed Mobility Sit to Stand Stand to Sit Bed to Chair Toilet/Commode Shower Functional Mobility GOALS Patient will demonstrate progress with self-care, cognitive and/or coping needs identified to allow safe discharge to home with available support and/or physical assistance. Rehab Potential: Good PLAN OT Frequency: 2 Times Per Week Treatment Interventions: Education, Self Care/Home Management, Energy Conservation Training, Joint Mobility, Strengthening, Functional Mobility Training, Balance Training Plan for Next Visit: Bathing Training, Bed Mobility, Chair/Commode Transfer Training, Dressing Training SIGNATURE: Gloria Brower OT/L PATIENT NAME: [place] Marie DATE: May 26, 2023 TIME: 11:23 AM Normal [facility] aPTT PPPon 05-26-2023 aPTT Coag (PPP) [Time] 28.2 s Normal 23.0-32.4 [facility] Comment on above: Order Comment: Speci men Type: BLOOD SPECIMEN Ordering Facility: [facility] Address: [address] [place] [address] Performed By: #### 2 4323-8, 39232-2, 2777-1 #### [facility] CLIA [id number] [address] [place] [address] OF [facility] ALLIED HEALTHon 05-25-2023 ALLIED HEALTH HNO ID: [id number] Author: NOAH KIMBLE Chaplain Service: Spiritual Care Author Type: Emt/Dispatcher Type: Allied Health Filed: 05/25/2023 15:33 Note Text: SPIRITUALCARE Spiritual Care Visit- Brief Note Name: Sherman Marie Date: May 25, 2023 Notes: Emt/Dispatcher rounds: introduced myself to the patient and family at bedside. They engaged me very warmly and I provided active and reflective listening as they shared some family dynamic and reflective family moments. They expressed their appreciation for my spiritual care and welcomed follow-up. Emt/Dispatcher Signature: Chaplain Sandra To contact the Spiritual Care Department: Please call [phone] or Page the On-Call Emt/Dispatcher at pager [phone] Thank you for the opportunity to be of service. This is an electronically created document. IF PRINTED, PLEASE DO NOT REMOVE FROM THE CHART OR MODIFY PRINTED COPY. Normal [facility] Basic metabolic 2000 panelon 05-25-2023 Anion gap [Moles/Vol] 12 mmol/L Normal 9-18 [facility] Comment on above: Order Comment: Speci men Type: BLOOD SPECIMEN Ordering Facility: [facility] Address: [address] [place] [address] Performed By: #### 2 4323-8, 66795-0, 2776- #### [facility] CLIA [id number] [address] [place] [address] [place] Calcium [Mass/Vol] 8.2 mg/dL Low 8.5-10.2 [facility] Comment on above: Order Comment: Speci men Type: BLOOD SPECIMEN Ordering Facility: [facility] Address: [address] [place] [address] Performed By: #### 2 4323-8, , 2776-04 #### [facility] CLIA [id number] [address] [place], [place] [id number] [place] Chloride [Moles/Vol] 103 mmol/L Normal 97-105 [facility] Comment on above: Order Comment: Speci men Type: BLOOD SPECIMEN Ordering Facility: [facility] Address: [address] [place], [place] [address] Performed By: #### 2 4323-8, 02614-8, 2776-04 #### [facility] CLIA [id number] [address] [place] [address] [place] CO2 [Moles/Vol] 24 mmol/L Normal 22-30 [facility] Comment on above: Order Comment: Speci men Type: BLOOD SPECIMEN Ordering Facility: [facility] Address: [address] [place] [address] Performed By: #### 2 4323-8, 69342-5, 2776- #### [facility] CLIA [id number] [address] [place], [place] [address] [place] Creatinine [Mass/Vol] 1.25 mg/dL High 0.73-1.22 [facility] Comment on above: Order Comment: Van maier Type: BLOOD SPECIMEN Ordering Facility: [facility] Address: [address] [place] [address] Performed By: #### 2 4323-8, 97462-5, 2776-1 #### [facility] CLIA [id number] [address] [place] [address] [place] Creatinine and Glomerular filtration rate.predicted panel (S/P/Bld) 72 mL/min/1.73m??? Normal >=60 [facility] Comment on above: Order Comment: Van maier Type: BLOOD SPECIMEN Ordering Facility: [facility] Address: [address] [place] [address] Result Comment: Hiral mated Glomerular Filtration Rate (eGFR) is calculated using the 2020 CKD-EPI creatinine equation. This equation utilizes serum creatinine, sex, and age as parameters. The creatinine assay has traceable calibration to isotope dilution-mass spectrometry. Refer to KDIGO guidelines for clinical interpretation. In patients with unstable renal function, e.g. those with acute kidney injury, the eGFR may not accurately reflect actual GFR. Performed By: #### 2 4323-8, 85639-0, 2776-04 #### [facility] CLIA [id number] [address] [place] [address] [place] Glucose [Mass/Vol] 141 mg/dL High 74-99 [facility] Comment on above: Order Comment: Van maier Type: BLOOD SPECIMEN Ordering Facility: [facility] Address: [address] [place] [address] Result Comment: The [place] [employer] (ADA) provides guidance for cutoff values for fasting glucose and random glucose. The ADA defines fasting as no caloric intake for at least 8 hours. Fasting plasma glucose results between 100 to 125 mg/dL indicate increased risk for diabetes (prediabetes). Fasting plasma glucose results greater than or equal to 126 mg/dL meet the criteria for diagnosis of diabetes. In the absence of unequivocal hyperglycemia, results should be confirmed by repeat testing. In a patient with classic symptoms of hyperglycemia or hyperglycemic crisis, random plasma glucose results greater than or equal to 200 mg/dL meet the criteria for diagnosis of diabetes. Reference: Standards of Medical Care in Diabetes 2016, [place] [employer]. Diabetes Care. 2016.39(Suppl 1). Performed By: #### 2 4323-8, , 2776-04 #### [facility] CLIA [id number] [address] [place] [address] [place] Potassium [Moles/Vol] 4.7 mmol/L Normal 3.7-5.1 [facility] Comment on above: Order Comment: Speci men Type: BLOOD SPECIMEN Ordering Facility: [facility] Address: [address] [place] [address] Performed By: #### 2 4323-8, , 2776-04 #### [facility] CLIA [id number] [address] [place] [address] [place] Sodium [Moles/Vol] 139 mmol/L Normal 136-144 [facility] Comment on above: Order Comment: Speci men Type: BLOOD SPECIMEN Ordering Facility: [facility] Address: [address] [place] [address] Performed By: #### 2 4323-8, , 2776-04 #### [facility] CLIA [id number] [address] [place] [address] [place] Urea nitrogen [Mass/Vol] 10 mg/dL Normal 9-24 [facility] Comment on above: Order Comment: Speci men Type: BLOOD SPECIMEN Ordering Facility: [facility] Address: [address] [place] [address] Performed By: #### 2 4323-8, , 2776-04 #### [facility] CLIA [id number] [address] [place], [place] [address] [place] CBC W Auto Differential pane l (Bld)on 05-25-2023 Basophils (Bld) [#/Vol] 10*3/uL Normal <0.11 [facility] Comment on above: Order Comment: Speci men Type: BLOOD SPECIMENOrdering Facility: [facility] Address: [address] [place] [address] Performed By: #### 5 7021-8 ####[facility] [id number] [place] [address] [place] Basophils/100 WBC (Bld) 0.1 % Normal [facility] Comment on above: Order Comment: Speci men Type: BLOOD SPECIMENOrdering Facility: [facility] Address: [address] [place] [address] Performed By: #### 5 7021-8 ####[facility] [id number] [place] [address] [place] Differential cell count method Nom (Bld) Auto Normal [facility] Comment on above: Order Comment: Speci men Type: BLOOD SPECIMENOrdering Facility: [facility] Address: [address] [place] [address] Performed By: #### 5 7021-8 ####[facility] [id number] [place] [address] [place] Eosinophils (Bld) [#/Vol] 10*3/uL Normal <0.46 [facility] Comment on above: Order Comment: Speci men Type: BLOOD SPECIMENOrdering Facility: [facility] Address: [address] [place] [address] Performed By: #### 5 7021-8 ####[facility] [id number] [place] [address] [place] Eosinophils/100 WBC (Bld) 0.1 % Normal [facility] Comment on above: Order Comment: Speci men Type: BLOOD SPECIMENOrdering Facility: [facility] Address: [address] [place] [address] Performed By: #### 5 7021-8 ####[facility] [id number] [place] [address] [place] Erythrocyte distribution width (RBC) [Ratio] 15.4 % High 11.5-15.0 [facility] Comment on above: Order Comment: Speci men Type: BLOOD SPECIMENOrdering Facility: [facility] Address: [address] [place] [address] Performed By: #### 5 7021-8 ####[facility] [id number] [place] [address] [place] Hematocrit (Bld) [Volume fraction] 34.1 % Low 39.0-51.0 [facility] Comment on above: Order Comment: Speci men Type: BLOOD SPECIMENOrdering Facility: [facility] Address: [address] [place] [address] Performed By: #### 5 7021-8 ####[facility] [id number] [place] [address] [place] Hemoglobin (Bld) [Mass/Vol] 10.3 g/dL Low 13.0-17.0 [facility] Comment on above: Order Comment: Speci men Type: BLOOD SPECIMENOrdering Facility: [facility] Address: [address] [place] [address] Performed By: #### 5 7021-8 ####[facility] [id number] [place] [address] [place] Immature granulocytes (Bld) [#/Vol] 0.04 10*3/uL Normal <0.10 [facility] Comment on above: Order Comment: Speci men Type: BLOOD SPECIMENOrdering Facility: [facility] Address: [address] [place] [address] Performed By: #### 5 7021-8 ####[facility] [id number] [place] [address] [place] Immature granulocytes/100 WBC (Bld) 0.4 % Normal [facility] Comment on above: Order Comment: Speci men Type: BLOOD SPECIMENOrdering Facility: [facility] Address: [address] [place] [address] Performed By: #### 5 7021-8 ####[facility] [id number] [place] [address] [place] Lymphocytes (Bld) [#/Vol] 0.51 10*3/uL Low 1.00-4.00 [facility] Comment on above: Order Comment: Speci men Type: BLOOD SPECIMENOrdering Facility: [facility] Address: [address] [place] [address] Performed By: #### 5 7021-8 ####[facility] [id number] [place] [address] [place] Lymphocytes/100 WBC (Bld) 4.8 % Normal [facility] Comment on above: Order Comment: Speci men Type: BLOOD SPECIMENOrdering Facility: [facility] Address: [address] [place] [address] Performed By: #### 5 7021-8 ####[facility] [id number] [place] [address] [place] MCH (RBC) [Entitic mass] 28.1 pg Normal 26.0-34.0 [facility] Comment on above: Order Comment: Speci men Type: BLOOD SPECIMENOrdering Facility: [facility] Address: [address] [place] [address] Performed By: #### 5 7021-8 ####[facility] [id number] [place] [address] [place] MCHC (RBC) [Mass/Vol] 30.2 g/dL Low 30.5-36.0 [facility] Comment on above: Order Comment: Speci men Type: BLOOD SPECIMENOrdering Facility: [facility] Address: [address] [place] [address] Performed By: #### 5 7021-8 ####[facility] [id number] [place] [address] [place] MCV (RBC) [Entitic vol] 93.2 fL Normal 80.0-100.0 [facility] Comment on above: Order Comment: Speci men Type: BLOOD SPECIMENOrdering Facility: [facility] Address: [address] [place] [address] Performed By: #### 5 7021-8 ####[facility] [id number] [place] [address] [place] Monocytes (Bld) [#/Vol] 0.53 10*3/uL Normal <0.87 [facility] Comment on above: Order Comment: Speci men Type: BLOOD SPECIMENOrdering Facility: [facility] Address: [address] [place] [address] Performed By: #### 5 7021-8 ####[facility] [id number] [place] [address] [place] Monocytes/100 WBC (Bld) 5.0 % Normal [facility] Comment on above: Order Comment: Speci men Type: BLOOD SPECIMENOrdering Facility: [facility] Address: [address] [place] [address] Performed By: #### 5 7021-8 ####[facility] [id number] [place] [address] [place] Neutrophils (Bld) [#/Vol] 9.46 10*3/uL High 1.45-7.50 [facility] Comment on above: Order Comment: Speci men Type: BLOOD SPECIMENOrdering Facility: [facility] Address: [address] [place] [address] Performed By: #### 5 7021-8 ####[facility] [id number] [place] [address] [place] Neutrophils/100 WBC (Bld) 89.6 % Normal [facility] Comment on above: Order Comment: Speci men Type: BLOOD SPECIMENOrdering Facility: [facility] Address: [address] [place] [address] Performed By: #### 5 7021-8 ####[facility] [id number] [place] [address] [place] Nucleated RBC (Bld) [#/Vol] 10*3/uL Normal <0.01 [facility] Comment on above: Order Comment: Speci men Type: BLOOD SPECIMENOrdering Facility: [facility] Address: [address] [place] [address] Performed By: #### 5 7021-8 ####[facility] [id number] [place] [address] [place] Nucleated RBC/100 WBC (Bld) [Ratio] 0.0 /100 WBC Normal [facility] Comment on above: Order Comment: Speci men Type: BLOOD SPECIMENOrdering Facility: [facility] Address: [address] [place] [address] Performed By: #### 5 7021-8 ####[facility] [id number] [place] [address] [place] Platelet mean volume (Bld) [Entitic vol] 11.1 fL Normal 9.0-12.7 [facility] Comment on above: Order Comment: Speci men Type: BLOOD SPECIMENOrdering Facility: [facility] Address: [address] [place] [address] Performed By: #### 5 7021-8 ####[facility] [id number] [place] [address] [place] Platelets (Bld) [#/Vol] 185 10*3/uL Normal 150-400 [facility] Comment on above: Order Comment: Speci men Type: BLOOD SPECIMENOrdering Facility: [facility] Address: [address] [place] [address] Performed By: #### 5 7021-8 ####[facility] [id number] [place] [id number] [place] RBC (Bld) [#/Vol] 3.66 10*6/uL Low 4.20-6.00 [facility] Comment on above: Order Comment: Speci men Type: BLOOD SPECIMENOrdering Facility: [facility] Address: [address] [place] [address] Performed By: #### 5 7021-8 ####[facility] [id number] [place] [address] [place] WBC (Bld) [#/Vol] 10.56 10*3/uL Normal 3.70-11.00 [facility] Comment on above: Order Comment: Speci men Type: BLOOD SPECIMENOrdering Facility: [facility] Address: [address] [place] [address] Performed By: #### 5 7021-8 ####[facility] [id number] [address] [place] CONSULTon 05-25-2023 CONSULT HNO ID: [id number] Author: HARIS RAMACHANDRAN MD Service: Pulmonary Disease Author Type: Physician Type: Consults Filed: 05/25/2023 17:27 Note Text: PULMONARY CONSULT NOTE SERVICE DATE: 05/25/2023 SERVICE TIME: 12:12 PM REASON FOR CONSULT: Acute hypoxia/hypercapnia requiring BIPAP REQUESTING PHYSICIAN: Michael Enciso CHIEF COMPLAINT: This 43 year old male is being seen for evaluation and management of hypercapnia following bariatric surgery. HISTORY OF PRESENT ILLNESS: Mr. Marie is a 43 year old male w/ PMH morbid obesity BMI 86.4, ISI on CPAP, and lymphedema (on spironolactone and lasix), who initially presents for a planned sleeve gastrectomy on 05/24/23. Pulmonology was consulted for acute hypercarbia requiring BIPAP in the SICU and post-op respiratory optimization. Patient was extubated successfully but developed dyspnea and accessory muscle use breathing in the PACU. Saturation was still in mid 90s. Patient was given pain medication, albuterol and was put on BIPAP, noted that respiratory symptoms did not improve. Patient was placed on CPAP but desatted to the 70s/80s overnight multiple times requiring AMET x3. Placed back on BIPAP and transferred to SICU for hypoxic respiratory failure. Negative for History of Asthma/COPD. Never smoker. Currently getting spironolactone 25 mg every day and torsemide 100 mg every day. Not on steroids. Most recent VBG pCO2 62, IPAP 18, EPAP 7, TV 560ml. PAST MEDICAL HISTORY Diagnosis Date Acquired hypothyroidism 11/26/2022 BMI 70 and over, adult (HCC) 11/26/2022 Gastroesophageal reflux disease without esophagitis 11/26/2022 Lymphedema 10/25/2022 ISI (obstructive sleep apnea) 11/26/2022 PAST SURGICAL HISTORY Procedure Laterality Date REMOVAL GALLBLADDER FAMILY HISTORY Problem Relation Age of Onset Anesthesia Problems No Family History Social History Tobacco Use Smoking status: Never Smokeless tobacco: Never Vaping Use Vaping Use: Never used Substance Use Topics Alcohol use: Not Currently Drug use: Never MEDICATIONS: Prior to Admission Medications: cholecalciferol, Vitamin D3, (VITAMIN D3) 1,250 mcg (50,000 unit) cap capsuleTake 1 capsule by mouth one time a week. Afterwards take 2000 units over the counter dailyDisp: 8 capsuleRfl: 0 levothyroxine (SYNTHROID) 125 mcg tabletDisp: Rfl: torsemide (DEMADEX) 100 mg tabletTake 100 mg by mouth once daily.Disp: Rfl: spironolactone (ALDACTONE) 25 mg tabletTake 25 mg by mouth once daily.Disp: Rfl: famotidine (PEPCID) 40 mg tabletDisp: Rfl: (Patient not taking: Reported on 05/23/2023) traMADol (ULTRAM) 50 mg tabletTake 50 mg by mouth every 8 hours as needed for pain.Disp: Rfl: Current Facility-Administered Medications Medication Dose Route Frequency NaCl 0.9% iv flush bag 20 mL INTRAVENOUS PRN levothyroxine (SYNTHROID) tab(s) 125 mcg 125 mcg ORAL DAILY (6 AM) spironolactone 25 mg tab(s) (ALDACTONE) 25 mg ORAL DAILY famotidine 20 mg injection (PEPCID) 20 mg INTRAVENOUS BID ondansetron (PF) 4 mg injection (ZOFRAN) 4 mg INTRAVENOUS q 6 H promethazine 12.5 mg/10 mL 25 mg oral liquid (PHENERGAN) 25 mg ORAL q 6 H PRN acetaminophen 1,000 mg CUP (TYLENOL) 1,000 mg ORAL q 6 H HYDROmorphone 0.2 mg injection (DILAUDID) 0.2 mg INTRAVENOUS q 2 H PRN enoxaparin 60 mg injection (LOVENOX) 60 mg SUBCUTANEOUS q 12 HR lactated ringers iv infusion 5-30 mL/hr INTRAVENOUS CONTINUOUS dextrose 15 gram/32 mL 15 g (TRUEPLUS) 15 g ORAL PRN Or glucagon 1 mg injection 1 mg INTRAMUSCULAR PRN Or dextrose 10% iv bolus 12.5 g INTRAVENOUS PRN potassium chloride 20-40 mEq oral powder (KLOR-CON) 20-40 mEq ORAL/FEEDING TUBE PRN Or potassium chloride ER 20-40 mEq tab(s) (KLOR-CON) 20-40 mEq ORAL PRN Or potassium chloride iv piggyback 20 mEq/100 mL 20 mEq INTRAVENOUS PRN Or potassium phosphate 15 mmol in NaCl 0.9% 250 mL 15 mmol INTRAVENOUS PRN Or potassium phosphate 30 mmol in NaCl 0.9% 250 mL 30 mmol INTRAVENOUS PRN Or potassium phosphate 45 mmol in NaCl 0.9% 500 mL 45 mmol INTRAVENOUS PRN magnesium sulfate iv piggyback in sterile water 2 g 50 mL 2 g INTRAVENOUS PRN phosphorus 500 mg tab(s) (K PHOS NEUTRAL) 500 mg ORAL/FEEDING TUBE PRN Or sodium phosphate 15 mmol in D5W 250 mL 15 mmol INTRAVENOUS PRN Or sodium phosphate 30 mmol in D5W 250 mL 30 mmol INTRAVENOUS PRN Or sodium phosphate 45 mmol in NaCl 0.9% 250 mL 45 mmol INTRAVENOUS PRN oxyCODONE IR 5 mg tab(s) (ROXICODONE) 5 mg ORAL q 4 H PRN torsemide 100 mg tab(s) (DEMADEX) 100 mg ORAL DAILY sodium chloride 0.9 % (flush) 2-10 mL (BD POSIFLUSH) 2-10 mL INTRAVENOUS DIRECTED PRN And perflutren lipid microspheres 1.1 mg/mL 1.3 mL injection (DEFINITY) 1.3 mL INTRAVENOUS DIRECTED PRN ALLERGIES Allergen Reactions Lactose Other: See Comments Sulfa (Sulfonamide * Itching Vancomycin Itching REVIEW OF SYSTEMS: Constitutional: No weight loss, malaise or fevers. HEENT: Negative for frequent or significant (more content not included)... Normal [facility] Comprehensive metabolic 2000 panelon 05-25-2023 Albumin [Mass/Vol] 3.2 g/dL Low 3.9-4.9 [facility] Comment on above: Order Comment: Speci men Type: BLOOD SPECIMEN Ordering Facility: [facility] Address: [address] [place] [address] Performed By: #### 2 4323-8, , 2776-04 #### [facility] CLIA [id number] [address] [place] [address] [place] ALP [Catalytic activity/Vol] 37 U/L Low 38-113 [facility] Comment on above: Order Comment: Speci men Type: BLOOD SPECIMEN Ordering Facility: [facility] Address: [address] [place] [address] Performed By: #### 2 4323-8, , 2776-04 #### [facility] CLIA [id number] [address] [place] [address] [place] ALT [Catalytic activity/Vol] 12 U/L Normal 10-54 [facility] Comment on above: Order Comment: Speci men Type: BLOOD SPECIMEN Ordering Facility: [facility] Address: [address] [place] [address] Performed By: #### 2 4323-8, , 2776-04 #### [facility] CLIA [id number] [address] [place] [address] [place] Anion gap [Moles/Vol] 10 mmol/L Normal 9-18 [facility] Comment on above: Order Comment: Speci men Type: BLOOD SPECIMEN Ordering Facility: [facility] Address: [address] [place] [address] Performed By: #### 2 4323-8, , 2776-04 #### [facility] CLIA [id number] [address] [place], [place] [id number] [place] AST [Catalytic activity/Vol] 16 U/L Normal 14-40 [facility] Comment on above: Order Comment: Speci men Type: BLOOD SPECIMEN Ordering Facility: [facility] Address: [address] [place] [address] Performed By: #### 2 4323-8, 67118-3, 2776-04 #### [facility] CLIA [id number] [address] [place] [address] [place] Bilirubin [Mass/Vol] 1.1 mg/dL Normal 0.2-1.3 [facility] Comment on above: Order Comment: Speci men Type: BLOOD SPECIMEN Ordering Facility: [facility] Address: [address] [place] [address] Performed By: #### 2 4323-8, , 2776-04 #### [facility] CLIA [id number] [address] [place] [address] [place] Calcium [Mass/Vol] 8.2 mg/dL Low 8.5-10.2 [facility] Comment on above: Order Comment: Speci men Type: BLOOD SPECIMEN Ordering Facility: [facility] Address: [address] [place] [address] Performed By: #### 2 4323-8, , 2776-04 #### [facility] CLIA [id number] [address] [place] [address] [place] Chloride [Moles/Vol] 106 mmol/L High 97-105 [facility] Comment on above: Order Comment: Speci men Type: BLOOD SPECIMEN Ordering Facility: [facility] Address: [address] [place] [address] Performed By: #### 2 4323-8, 08472-6, 2776-04 #### [facility] CLIA [id number] [address] [place], [place] [id number] [place] CO2 [Moles/Vol] 26 mmol/L Normal 22-30 [facility] Comment on above: Order Comment: Van maier Type: BLOOD SPECIMEN Ordering Facility: [facility] Address: [address] [place] [address] Performed By: #### 2 4323-8, 81281-3, 2776-04 #### [facility] CLIA [id number] [address] [place] [address] [place] Creatinine [Mass/Vol] 1.14 mg/dL Normal 0.73-1.22 [facility] Comment on above: Order Comment: Specreynaldo men Type: BLOOD SPECIMEN Ordering Facility: [facility] Address: [address] [place] [address] Performed By: #### 2 4323-8, , 2776-04 #### [facility] CLIA [id number] [address] [place] [address] [place] Creatinine and Glomerular filtration rate.predicted panel (S/P/Bld) 81 mL/min/1.73m??? Normal >=60 [facility] Comment on above: Order Comment: Van maier Type: BLOOD SPECIMEN Ordering Facility: [facility] Address: [address] [place] [address] Result Comment: Hiral mated Glomerular Filtration Rate (eGFR) is calculated using the 2020 CKD-EPI creatinine equation. This equation utilizes serum creatinine, sex, and age as parameters. The creatinine assay has traceable calibration to isotope dilution-mass spectrometry. Refer to KDIGO guidelines for clinical interpretation. In patients with unstable renal function, e.g. those with acute kidney injury, the eGFR may not accurately reflect actual GFR. Performed By: #### 2 4323-8, 77153-8, 2776-04 #### [facility] CLIA [id number] [address] [place] [address] [place] Glucose [Mass/Vol] 131 mg/dL High 74-99 [facility] Comment on above: Order Comment: Speci men Type: BLOOD SPECIMEN Ordering Facility: [facility] Address: [address] [place] [address] Result Comment: The [place] [employer] (ADA) provides guidance for cutoff values for fasting glucose and random glucose. The ADA defines fasting as no caloric intake for at least 8 hours. Fasting plasma glucose results between 100 to 125 mg/dL indicate increased risk for diabetes (prediabetes). Fasting plasma glucose results greater than or equal to 126 mg/dL meet the criteria for diagnosis of diabetes. In the absence of unequivocal hyperglycemia, results should be confirmed by repeat testing. In a patient with classic symptoms of hyperglycemia or hyperglycemic crisis, random plasma glucose results greater than or equal to 200 mg/dL meet the criteria for diagnosis of diabetes. Reference: Standards of Medical Care in Diabetes 2016, [place] [employer]. Diabetes Care. 2016.39(Suppl 1). Performed By: #### 2 4323-8, , 2776-04 #### [facility] CLIA [id number] [address] [place] [address] [place] Potassium [Moles/Vol] 4.5 mmol/L Normal 3.7-5.1 [facility] Comment on above: Order Comment: Van maier Type: BLOOD SPECIMEN Ordering Facility: [facility] Address: [address] [place] [address] Performed By: #### 2 4323-8, , 2776-04 #### [facility] CLIA [id number] [address] [place] [address] [place] Protein [Mass/Vol] 6.5 g/dL Normal 6.3-8.0 [facility] Comment on above: Order Comment: Van maier Type: BLOOD SPECIMEN Ordering Facility: [facility] Address: [address] [place] [address] Result Comment: Resu lt rechecked. Performed By: #### 2 4323-8, , 2776-04 #### [facility] CLIA [id number] [address] [place] [address] [place] Sodium [Moles/Vol] 142 mmol/L Normal 136-144 [facility] Comment on above: Order Comment: Speci men Type: BLOOD SPECIMEN Ordering Facility: [facility] Address: [address] [place] [address] Performed By: #### 2 4323-8, , 2776-04 #### [facility] CLIA [id number] [address] [place] [address] [place] Urea nitrogen [Mass/Vol] 8 mg/dL Low 9-24 [facility] Comment on above: Order Comment: Speci men Type: BLOOD SPECIMEN Ordering Facility: [facility] Address: [address] [place] [address] Performed By: #### 2 4323-8, , 2776-04 #### [facility] CLIA [id number] [address] [place] [address] [place] Gas and Carbon monoxide pane l (BldV)on 05-25-2023 Base excess Calc (BldV) [Moles/Vol] 2 mmol/L Normal 0-2 [facility] Comment on above: Order Comment: Speci men Type: BLOOD SPECIMEN Ordering Facility: [facility] Address: [address] [place] [address] Performed By: #### 2 4323-8, , 2776-04 #### [facility] CLIA [id number] [address] [place] [address] [place] Body temperature 98.24 [degF] Normal [facility] Comment on above: Order Comment: Speci men Type: BLOOD SPECIMEN Ordering Facility: [facility] Address: [address] [place] [address] Performed By: #### 2 4323-8, , 2776-04 #### [facility] CLIA [id number] [address] [place] [address] [place] Calcium.ionized (Bld) [Mass/Vol] 1.17 mmol/L Normal 1.08-1.30 [facility] Comment on above: Order Comment: Speci men Type: BLOOD SPECIMEN Ordering Facility: [facility] Address: [address] [place] [address] Performed By: #### 2 4323-8, 60784-9, 2776- #### [facility] CLIA [id number] [address] [place] [address] [place] Calcium.ionized adjusted to pH 7.4 (BldA) [Moles/Vol] 1.11 mmol/L Normal 1.08-1.30 [facility] Comment on above: Order Comment: Speci men Type: BLOOD SPECIMEN Ordering Facility: [facility] Address: [address] [place] [address] Performed By: #### 2 4323-8, , 2776-04 #### [facility] CLIA [id number] [address] [place] [address] [place] Carboxyhemoglobin (BldV) [Mass fraction] 2.0 % Normal 0.0-2.0 [facility] Comment on above: Order Comment: Speci men Type: BLOOD SPECIMEN Ordering Facility: [facility] Address: [address] [place] [address] Result Comment: Carb oxyhemoglobin Reference Range for Smokers: 2.0-8.0% Performed By: #### 2 4323-8, 69039-6, 2776-04 #### [facility] CLIA [id number] [address] [place] [address] [place] CO2 (BldV) [Partial pressure] 62 mm[Hg] High 42-55 [facility] Comment on above: Order Comment: Speci men Type: BLOOD SPECIMEN Ordering Facility: [facility] Address: [address] [place] [address] Performed By: #### 2 4323-8, 06034-2, 7- #### [facility] CLIA [id number] [address] [place] [address] [place] CO2 adjusted to patient's actual temperature (BldV) [Partial pressure] 61 mmHg High 42-55 [facility] Comment on above: Order Comment: Speci men Type: BLOOD SPECIMEN Ordering Facility: [facility] Address: [address] [place] [address] Performed By: #### 2 4323-8, 10272-8, 2776-04 #### [facility] CLIA [id number] [address] [place] [address] [place] FIO2 40 % Normal [facility] Comment on above: Order Comment: Speci men Type: BLOOD SPECIMEN Ordering Facility: [facility] Address: [address] [place] [address] Performed By: #### 2 4323-8, , 2776-04 #### [facility] CLIA [id number] [address] [place] [address] [place] Glucose [Mass/Vol] 145 mg/dL High 60-105 [facility] Comment on above: Order Comment: Speci men Type: BLOOD SPECIMEN Ordering Facility: [facility] Address: [address] [place] [address] Performed By: #### 2 4323-8, , 2776-04 #### [facility] CLIA [id number] [address] [place] [address] [place] HCO3 (Bld) [Moles/Vol] 29 mmol/L High 24-28 [facility] Comment on above: Order Comment: Speci men Type: BLOOD SPECIMEN Ordering Facility: [facility] Address: [address] [place] [address] Performed By: #### 2 4323-8, , 2776-04 #### [facility] CLIA [id number] [address] [place], [place] [id number] [place] Hematocrit (Bld) [Volume fraction] 32.0 % Low 39.0-51.0 [facility] Comment on above: Order Comment: Speci men Type: BLOOD SPECIMEN Ordering Facility: [facility] Address: [address] [place] [address] Performed By: #### 2 4323-8, , 2776-04 #### [facility] CLIA [id number] [address] [place] [address] [place] Hemoglobin (Bld) [Mass/Vol] 10.4 g/dL Low 13.0-17.0 [facility] Comment on above: Order Comment: Speci men Type: BLOOD SPECIMEN Ordering Facility: [facility] Address: [address] [place] [address] Performed By: #### 2 4323-8, , 2776-04 #### [facility] CLIA [id number] [address] [place] [address] [place] Lactate [Moles/Vol] 0.9 mmol/L Normal 0.5-2.2 [facility] Comment on above: Order Comment: Speci men Type: BLOOD SPECIMEN Ordering Facility: [facility] Address: [address] [place] [address] Performed By: #### 2 4323-8, , 2776-04 #### [facility] CLIA [id number] [address] [place] [address] [place] Methemoglobin (Bld) [Mass fraction] 1.3 % Normal 0.0-1.5 [facility] Comment on above: Order Comment: Speci men Type: BLOOD SPECIMEN Ordering Facility: [facility] Address: [address] [place] [address] Performed By: #### 2 4323-8, , 2776-04 #### [facility] CLIA [id number] [address] [place] [address] [place] O2 THERAPY Positive Normal [facility] Comment on above: Order Comment: Speci men Type: BLOOD SPECIMEN Ordering Facility: [facility] Address: [address] [place] [address] Performed By: #### 2 4323-8, , 2776-04 #### [facility] CLIA [id number] [address] [place] [address] [place] Oxygen (BldV) [Partial pressure] 84 mm[Hg] High 35-45 [facility] Comment on above: Order Comment: Speci men Type: BLOOD SPECIMEN Ordering Facility: [facility] Address: [address] [place] [address] Performed By: #### 2 4323-8, , 2776-04 #### [facility] CLIA [id number] [address] [place] [address] [place] Oxygen adjusted to patient's actual temperature (BldV) [Partial pressure] 83 mmHg High 35-45 [facility] Comment on above: Order Comment: Speci men Type: BLOOD SPECIMEN Ordering Facility: [facility] Address: [address] [place] [address] Performed By: #### 2 4323-8, , 2776-04 #### [facility] CLIA [id number] [address] [place] [address] [place] Oxygen saturation in Venous blood 96 % High 60-85 [facility] Comment on above: Order Comment: Speci men Type: BLOOD SPECIMEN Ordering Facility: [facility] Address: [address] [place] [address] Performed By: #### 2 4323-8, 64061-8, 2776-04 #### [facility] CLIA [id number] [address] [place] [address] [place] Oxyhemoglobin (BldV) [Mass fraction] 93 % High 60-85 [facility] Comment on above: Order Comment: Speci men Type: BLOOD SPECIMEN Ordering Facility: [facility] Address: [address] [place] [address] Performed By: #### 2 4323-8, 40606-6, 2776- #### [facility] CLIA [id number] [address] [place] [address] [place] pH (BldV) 7.30 [pH] Low 7.32-7.42 [facility] Comment on above: Order Comment: Speci men Type: BLOOD SPECIMEN Ordering Facility: [facility] Address: [address] [place] [address] Performed By: #### 2 4323-8, 50134-4, 2776-04 #### [facility] CLIA [id number] [address] [place] [address] [place] pH adjusted to patient's actual temperature (BldV) 7.30 Low 7.32-7.42 [facility] Comment on above: Order Comment: Speci men Type: BLOOD SPECIMEN Ordering Facility: [facility] Address: [address] [place] [address] Performed By: #### 2 4323-8, , 2776-04 #### [facility] CLIA [id number] [address] [place] [address] [place] Potassium [Moles/Vol] 4.2 mmol/L Normal 3.5-5.0 [facility] Comment on above: Order Comment: Speci men Type: BLOOD SPECIMEN Ordering Facility: [facility] Address: [address] [place] [address] Performed By: #### 2 4323-8, 80430-7, 2776-04 #### [facility] CLIA [id number] [address] [place] [address] [place] Sodium [Moles/Vol] 140 mmol/L Normal 136-144 [facility] Comment on above: Order Comment: Speci men Type: BLOOD SPECIMEN Ordering Facility: [facility] Address: [address] [place] [address] Performed By: #### 2 4323-8, 96127-0, 2776-04 #### [facility] CLIA [id number] [address] [place] [address] [place] Base excess Calc (BldV) [Moles/Vol] 2 mmol/L Normal 0-2 [facility] Comment on above: Order Comment: Speci men Type: BLOOD SPECIMEN Ordering Facility: [facility] Address: [address] [place] [address] Performed By: #### 2 4323-8, , 2776-04 #### [facility] CLIA [id number] [address] [place] [address] [place] Body temperature 98.6 [degF] Normal [facility] Comment on above: Order Comment: Speci men Type: BLOOD SPECIMEN Ordering Facility: [facility] Address: [address] [place] [address] Performed By: #### 2 4323-8, , 2776-04 #### [facility] CLIA [id number] [address] [place] [address] [place] Calcium.ionized (Bld) [Mass/Vol] 1.18 mmol/L Normal 1.08-1.30 [facility] Comment on above: Order Comment: Speci men Type: BLOOD SPECIMEN Ordering Facility: [facility] Address: [address] [place] [address] Performed By: #### 2 4323-8, , 27710-23 #### [facility] CLIA [id number] [address] [place] [address] [place] Calcium.ionized adjusted to pH 7.4 (BldA) [Moles/Vol] 1.12 mmol/L Normal 1.08-1.30 [facility] Comment on above: Order Comment: Speci men Type: BLOOD SPECIMEN Ordering Facility: [facility] Address: [address] [place] [address] Performed By: #### 2 4323-8, 47177-1, 2776-04 #### [facility] CLIA [id number] [address] [place] [address] [place] Carboxyhemoglobin (BldV) [Mass fraction] 2.4 % High 0.0-2.0 [facility] Comment on above: Order Comment: Speci men Type: BLOOD SPECIMEN Ordering Facility: [facility] Address: [address] [place] [address] Result Comment: Carb oxyhemoglobin Reference Range for Smokers: 2.0-8.0% Performed By: #### 2 4323-8, 47655-8, 2776-04 #### [facility] CLIA [id number] [address] [place] [address] [place] CO2 (BldV) [Partial pressure] 60 mm[Hg] High 42-55 [facility] Comment on above: Order Comment: Speci men Type: BLOOD SPECIMEN Ordering Facility: [facility] Address: [address] [place] [address] Performed By: #### 2 4323-8, , 2776-04 #### [facility] CLIA [id number] [address] [place] [address] [place] Glucose [Mass/Vol] 144 mg/dL High 60-105 [facility] Comment on above: Order Comment: Speci men Type: BLOOD SPECIMEN Ordering Facility: [facility] Address: [address] [place] [address] Performed By: #### 2 4323-8, 29450-9, 2776-04 #### [facility] CLIA [id number] [address] [place] [address] [place] HCO3 (Bld) [Moles/Vol] 29 mmol/L High 24-28 [facility] Comment on above: Order Comment: Speci men Type: BLOOD SPECIMEN Ordering Facility: [facility] Address: [address] [place] [address] Performed By: #### 2 4323-8, , 2776-04 #### [facility] CLIA [id number] [address] [place] [address] [place] Hematocrit (Bld) [Volume fraction] 31.9 % Low 39.0-51.0 [facility] Comment on above: Order Comment: Speci men Type: BLOOD SPECIMEN Ordering Facility: [facility] Address: [address] [place] [address] Performed By: #### 2 4323-8, , 2776-04 #### [facility] CLIA [id number] [address] [place] [address] [place] Hemoglobin (Bld) [Mass/Vol] 10.3 g/dL Low 13.0-17.0 [facility] Comment on above: Order Comment: Speci men Type: BLOOD SPECIMEN Ordering Facility: [facility] Address: [address] [place] [address] Performed By: #### 2 4323-8, , 2776-04 #### [facility] CLIA [id number] [address] [place] [address] [place] Lactate [Moles/Vol] 1.0 mmol/L Normal 0.5-2.2 [facility] Comment on above: Order Comment: Speci men Type: BLOOD SPECIMEN Ordering Facility: [facility] Address: [address] [place] [address] Performed By: #### 2 4323-8, , 2776-04 #### [facility] CLIA [id number] [address] [place] [address] [place] Methemoglobin (Bld) [Mass fraction] 1.2 % Normal 0.0-1.5 [facility] Comment on above: Order Comment: Speci men Type: BLOOD SPECIMEN Ordering Facility: [facility] Address: [address] [place] [address] Performed By: #### 2 4323-8, 12130-2, 2776-04 #### [facility] CLIA [id number] [address] [address] [place] O2 THERAPY Positive Normal [facility] Comment on above: Order Comment: Speci men Type: BLOOD SPECIMEN Ordering Facility: [facility] Address: [address] [place], [place] [address] Performed By: #### 2 4323-8, , 2776-04 #### [facility] CLIA [id number] [address] [place] [id number] [place] Oxygen (BldV) [Partial pressure] 53 mm[Hg] High 35-45 [facility] Comment on above: Order Comment: Speci men Type: BLOOD SPECIMEN Ordering Facility: [facility] Address: [address] [place], [place] [address] Performed By: #### 2 432-8, , 2776-04 #### [facility] CLIA [id number] [address] [place] [address] [place] Oxygen saturation in Venous blood 84 % Normal 60-85 [facility] Comment on above: Order Comment: Speci men Type: BLOOD SPECIMEN Ordering Facility: [facility] Address: [address] [place], [place] [address] Performed By: #### 2 4323-8, , 2776-04 #### [facility] CLIA [id number] [address] [place] [address] [place] Oxyhemoglobin (BldV) [Mass fraction] 81 % Normal 60-85 [facility] Comment on above: Order Comment: Speci men Type: BLOOD SPECIMEN Ordering Facility: [facility] Address: [address] [place], [place] [address] Performed By: #### 2 4323-8, , 2776-04 #### [facility] CLIA [id number] [address] [place] [address] [place] pH (BldV) 7.31 [pH] Low 7.32-7.42 [facility] Comment on above: Order Comment: Speci men Type: BLOOD SPECIMEN Ordering Facility: [facility] Address: [address] [place] [address] Performed By: #### 2 4323-8, 77425-6, 2776-04 #### [facility] CLIA [id number] [address] [place] [address] [place] Potassium [Moles/Vol] 4.5 mmol/L Normal 3.5-5.0 [facility] Comment on above: Order Comment: Speci men Type: BLOOD SPECIMEN Ordering Facility: [facility] Address: [address] [place] [address] Performed By: #### 2 4323-8, , 2776-04 #### [facility] CLIA [id number] [address] [place] [address] [place] Sodium [Moles/Vol] 139 mmol/L Normal 136-144 [facility] Comment on above: Order Comment: Speci men Type: BLOOD SPECIMEN Ordering Facility: [facility] Address: [address] [place] [address] Performed By: #### 2 4323-8, , 2776-04 #### [facility] CLIA [id number] [address] [place] [address] [place] Base excess Calc (BldV) [Moles/Vol] 1 mmol/L Normal 0-2 [facility] Comment on above: Order Comment: Speci men Type: BLOOD SPECIMEN Ordering Facility: [facility] Address: [address] [place] [address] Performed By: #### 2 4323-8, , 2776-04 #### [facility] CLIA [id number] [address] [place] [address] [place] Body temperature 98.6 [degF] Normal [facility] Comment on above: Order Comment: Speci men Type: BLOOD SPECIMEN Ordering Facility: [facility] Address: [address] [place] [address] Performed By: #### 2 4323-8, , 2776-04 #### [facility] CLIA [id number] [address] [place] [address] [place] Calcium.ionized (Bld) [Mass/Vol] 1.18 mmol/L Normal 1.08-1.30 [facility] Comment on above: Order Comment: Speci men Type: BLOOD SPECIMEN Ordering Facility: [facility] Address: [address] [place] [address] Performed By: #### 2 4323-8, , 2776-04 #### [facility] CLIA [id number] [address] [place] [address] [place] Calcium.ionized adjusted to pH 7.4 (BldA) [Moles/Vol] 1.13 mmol/L Normal 1.08-1.30 [facility] Comment on above: Order Comment: Speci men Type: BLOOD SPECIMEN Ordering Facility: [facility] Address: [address] [place] [address] Performed By: #### 2 4323-8, , 2776-04 #### [facility] CLIA [id number] [address] [place] [address] [place] Carboxyhemoglobin (BldV) [Mass fraction] 2.1 % High 0.0-2.0 [facility] Comment on above: Order Comment: Speci men Type: BLOOD SPECIMEN Ordering Facility: [facility] Address: [address] [place] [address] Result Comment: Carb oxyhemoglobin Reference Range for Smokers: 2.0-8.0% Performed By: #### 2 4323-8, 53224-3, 2776-04 #### [facility] CLIA [id number] [address] [place] [address] [place] CO2 (BldV) [Partial pressure] 56 mm[Hg] High 42-55 [facility] Comment on above: Order Comment: Speci men Type: BLOOD SPECIMEN Ordering Facility: [facility] Address: [address] [place] [address] Performed By: #### 2 4323-8, 38548-5, 2776- #### [facility] CLIA [id number] [address] [place] [address] [place] Glucose [Mass/Vol] 148 mg/dL High 60-105 [facility] Comment on above: Order Comment: Speci men Type: BLOOD SPECIMEN Ordering Facility: [facility] Address: [address] [place] [address] Performed By: #### 2 4323-8, , 2776-04 #### [facility] CLIA [id number] [address] [place] [address] [place] HCO3 (Bld) [Moles/Vol] 27 mmol/L Normal 24-28 [facility] Comment on above: Order Comment: Speci men Type: BLOOD SPECIMEN Ordering Facility: [facility] Address: [address] [place] [address] Performed By: #### 2 4323-8, , 2776-04 #### [facility] CLIA [id number] [address] [place] [address] [place] Hematocrit (Bld) [Volume fraction] 32.1 % Low 39.0-51.0 [facility] Comment on above: Order Comment: Speci men Type: BLOOD SPECIMEN Ordering Facility: [facility] Address: [address] [place] [address] Performed By: #### 2 4323-8, , 2776-04 #### [facility] CLIA [id number] [address] [id number] [address] [place] Hemoglobin (Bld) [Mass/Vol] 10.4 g/dL Low 13.0-17.0 [facility] Comment on above: Order Comment: Speci men Type: BLOOD SPECIMEN Ordering Facility: [facility] Address: [address] [place] [address] Performed By: #### 2 4323-8, 34076-3, 2776-04 #### [facility] CLIA [id number] [address] [place] [address] [place] Lactate [Moles/Vol] 0.9 mmol/L Normal 0.5-2.2 [facility] Comment on above: Order Comment: Speci men Type: BLOOD SPECIMEN Ordering Facility: [facility] Address: [address] [place] [address] Performed By: #### 2 4323-8, , 2776-04 #### [facility] CLIA [id number] [address] [place] [address] [place] Methemoglobin (Bld) [Mass fraction] 0.9 % Normal 0.0-1.5 [facility] Comment on above: Order Comment: Speci men Type: BLOOD SPECIMEN Ordering Facility: [facility] Address: [address] [place] [address] Performed By: #### 2 4323-8, , 2776-04 #### [facility] CLIA [id number] [address] [place] [address] [place] O2 THERAPY Positive Normal [facility] Comment on above: Order Comment: Speci men Type: BLOOD SPECIMEN Ordering Facility: [facility] Address: [address] [place] [address] Result Comment: l Performed By: #### 2 4323-8, , 2776-04 #### [facility] CLIA [id number] [address] [place], [place] [id number] [place] Oxygen (BldV) [Partial pressure] 54 mm[Hg] High 35-45 [facility] Comment on above: Order Comment: Speci men Type: BLOOD SPECIMEN Ordering Facility: [facility] Address: [address] [place] [id number] Performed By: #### 2 4323-8, , 2776-04 #### [facility] CLIA [id number] [address] [place] [id number] [place] Oxygen saturation in Venous blood 84 % Normal 60-85 [facility] Comment on above: Order Comment: Speci men Type: BLOOD SPECIMEN Ordering Facility: [facility] Address: [address] [place], [place] [id number] Performed By: #### 2 4323-8, , 2776-04 #### [facility] CLIA [id number] [address] [place] [id number] [place] Oxyhemoglobin (BldV) [Mass fraction] 82 % Normal 60-85 [facility] Comment on above: Order Comment: Speci men Type: BLOOD SPECIMEN Ordering Facility: [facility] Address: [address] [place], [place] [id number] Performed By: #### 2 4323-8, , 2776-04 #### [facility] CLIA [id number] [address] [place], [place] [id number] [place] pH (BldV) 7.31 [pH] Low 7.32-7.42 [facility] Comment on above: Order Comment: Speci men Type: BLOOD SPECIMEN Ordering Facility: [facility] Address: [address] [place], [place] [id number] Performed By: #### 2 4323-8, , 2776-04 #### [facility] CLIA [id number] [address] [place], [place] [id number] [place] Potassium [Moles/Vol] 4.4 mmol/L Normal 3.5-5.0 [facility] Comment on above: Order Comment: Speci men Type: BLOOD SPECIMEN Ordering Facility: [facility] Address: [address] [place] [address] Performed By: #### 2 4323-8, 54139-4, 2777-1 #### [facility] CLIA [id number] [address] [place], [place] [address] [address] [address] [place] Sodium [Moles/Vol] 139 mmol/L Normal 136-144 [facility] Comment on above: Order Comment: Speci men Type: BLOOD SPECIMEN Ordering Facility: [facility] Address: [address] [place] [address] Performed By: #### 2 4323-8, 88375-4, 2777-1 #### [facility] CLIA [id number] [address] [place] [address] [place] MEDICAL EMERon 05-25-2023 MEDICAL JENA HNO ID: [id number] Author: JUAN CARLOS MURRELL APRN.PANEL INSTRUMENT REPAIRER Service: Critical Care Author Type: Nurse Practitioner Type: Chg in Clinical Condition Filed: 05/25/2023 02:02 Note Text: MEDICAL EMERGENCY TEAM AMET CODE STATUS: Code Status: Not on file ASSESSMENT Of response was called for hypoxia. Patient had laparoscopic gastric restrictive surgery with bypass and Farrah-en-Y yesterday and was extubated to BiPAP before being returned to the floor. Patient was taken off BiPAP tonight and placed on his home BPAP device with a 4 L oxygen bleed. While on his CPAP device patient desaturated into the high 70s but came back up into the 90% sats. Patient's oxygen bleeding was turned up to 6 L. Patient was satting 98% when he was being assessed. Patient denies shortness of breath fevers chills chest pain. Patient was observed and when he fell back to sleep his oxygen saturation dropped to the mid 80s and then promptly returned right back to the 98%. Bedside RN was instructed to call another rapid if patient sustained hypoxia under 88%. Primary team was at bedside and agreed with the plan. Addendum 01:07 Bedside RN called second Rapid Response for hypoxia. Pt was 78% for 3 minutes on home bipap machine with 6L O2 bleed in. Pt placed on Bipap 16/7 45% and Primary team contacted SICU for ICU admission for Hypoxia. HPI 43-year-old male with a past medical history of morbid obesity, lymphedema, GERD, ISI who is postop day 0 from laparoscopic gastric restrictive surgery with bypass and Farrah-en-Y. REASON FOR CALL Hypoxia INTERVENTIONS Assessment DISPOSITIONS Unchanged Primary Team Notified: Yes PAST MEDICAL / SURGICAL HISTORY PAST MEDICAL HISTORY Diagnosis Date Acquired hypothyroidism 11/26/2022 BMI 70 and over, adult (HCC) 11/26/2022 Gastroesophageal reflux disease without esophagitis 11/26/2022 Lymphedema 10/25/2022 ISI (obstructive sleep apnea) 11/26/2022 PAST SURGICAL HISTORY Procedure Laterality Date REMOVAL GALLBLADDER AIRWAY HISTORY Grade 1, GlideScope PERTINENT PHYSICAL EXAM and INITIAL ASSESSMENT (For vital signs prior and during MET call, see nursing documentation) Pertinent Vital Signs at Time of MET Call: 98% saturation on home Cpap with 6L bleed. Appearance: Alert Airway Patent: Yes Breathing Evaluation: Normal Circulation Evaluation: Skin warm and dry, Pulses Regular, and Heart Sounds normal S1 and S2 Neurologic Evaluation: GCS Evaluation: 3: To Speech, 5: Oriented 6: Obeys Motor commands Is the Level of Consciousness at Baseline: Yes Lungs: CTA Abdomen: tender around laprscopic sites, obese Peripheral 05/23/232137 [facility] Right Arm 22 Gauge (Active) Placement Date/Time: 05/23/232137 Line, Drain, Airway Placed by: [facility] Location: Right Insertion Site: Arm Size: 22 Gauge Peripheral 05/24/23829 Left Hand 18 Gauge (Active) Placement Date/Time: 05/24/23 (c) 829 Location: Left Insertion Site: Hand Size: 18 Gauge PERTINENT DIAGNOSTICS Diagnostic Tests Reviewed: No new labs Primary Team Aware/Notified: Yes I have seen and reviewed the patient today for an aggregate of 25 minutes directly supervising and providing non-critical care to the patient as noted above.. Time spent included physical examination at the bedside and verifying the findings, reviewing labs and imaging, primary physician and consultants, and developing a plan of care with the bedside nurse. LEVEL 2 SIGNATURE: Juan Carlos Murrell APRN.CNP PATIENT NAME: Sherman Marie DATE: May 25, 2023 TIME: 12:53 AM [facility] HNO ID: [id number] Author: LUCRETIA RUDD MD Service: General Surgery Author Type: Resident Type: Chg in Clinical Condition Filed: 05/25/2023 02:42 Note Text: GENERAL SURGERY PLAN OF CARE NOTE AMET called around midnight due to intermittent hypoxia. Patient resting well on CPAP machine and intermittently desats to mid 80s but quickly increases up to 90s. When we arrived at bedside Spo2 was 96% patient was sleeping. -Continue to montiro spo2 -If desats are sustained >1-2 minutes will consider ICU transfer for BIPAP use Lucretia Rudd MD General Surgery PGY1 Pager: [phone] Patient continues to desat to 76-85 for >2 minutes when sleeping. Patient would benefit from BIPAP and this requires a SICU admission -Admit to SICU for BIPAP overnight Normal [facility] Magnesium SerPl-mCncon 05-25 Magnesium [Mass/Vol] 2.3 mg/dL Normal 1.7-2.3 [facility] Comment on above: Order Comment: Van maier Type: BLOOD SPECIMEN Ordering Facility: [facility] Address: [address] [place] [address] Performed By: #### 2 4323-8, 49969-3, 2777-1 #### [facility] CLIA [id number] [address] [place] [address] [place] [address] [place] PT panel Coag (PPP)on 2023 INR Coag (PPP) [Relative time] 1.1 {INR} Normal 0.9-1.3 [facility] Comment on above: Order Comment: Van maier Type: BLOOD SPECIMENOrdering Facility: [facility] Address: [address] [place] [address] Result Comment: Amita min K Antagonist (VKA) Therapeutic Range: INR 2 to 3 (Target INR of 2.5) Note: For patients treated with VKA drugs, such as warfarin, the [employer] 2012 Guideline recommends a therapeutic INR range of 2 to 3 (target INR of 2.5). This recommendation includes high-risk patients with antiphospholipid syndrome with previous arterial or venous thromboembolism, current-generation mechanical or bioprosthetic aortic heart valve replacement. Note: Patients with mechanical aortic valve replacement and additional risk factors for thromboembolic events (atrial fibrillation, previous thromboembolism, LV dysfunction, hypercoagulable conditions) or an older generation mechanical AVR (i.e., ball in-Cage) or any mechanical MVR should have a INR therapeutic range of 2.5 to 3.5 (target INR of 3). Naty GH, et al. Chest 2012, 141:7S-47S Francia RA, et al. [facility] 2017, 70: 252-289 Performed By: #### 1 4979-9, 11869-9 ####[facility] [id number] [place] [address] [place] PT Coag (PPP) [Time] 11.6 s Normal 9.7-13.0 [facility] Comment on above: Order Comment: Speci darrion Type: BLOOD SPECIMENOrdering Facility: [facility] Address: [address] [place] [address] Performed By: #### 1 4979-9, 23271-6 ####[facility] [id number] [place] [address] [place] Phosphate SerPl-mCncon 05-25 Phosphate [Mass/Vol] 3.4 mg/dL Normal 2.7-4.8 [facility] Comment on above: Order Comment: Van maier Type: BLOOD SPECIMEN Ordering Facility: [facility] Address: [address] [place] [address] Performed By: #### 2 4323-8, 89678-2, 2777-1 #### [facility] CLIA [id number] [address] [place] [address] [place] STAPH AUREUS PCRon 4 S. aureus and MRSA panel JANNA+probe (Nose) Normal Negative [facility] Comment on above: Order Comment: Van maier Type: BLOOD SPECIMEN Ordering Facility: [facility] Address: [address] [place] [address] Result Comment: Nega tive for Staphylococcus aureus by PCR. Negative for MRSA by PCR Performed By: #### 2 4323-8, 20153-7, 2777-1 #### [facility] CLIA [id number] [address] [place] [address] [place] THERAPY NTon 05-25-2023 THERAPY NT HNO ID: [id number] Author: DAVID TSANG RRT Service: ? Author Type: Registered Resp Therapist Type: Therapy (PT/OT/Speech/Resp) Filed: 05/25/2023 02:13 Note Text: RESPIRATORY THERAPY PROGRESS NOTE SERVICE DATE: 05/25/2023 SERVICE TIME: AMET response for decreased SPO2. RN states patient was on home settings and SPO2 desat so patient was placed on V60 with previous settings. Initial NIV settings: S/T mode, IPAP 16, EPAP 10, FIO2 45%, I time 0.8, Rate 14, Leak 17, Trigger 92%, I:E 1:6.5, Rise 2. Patient values: Vt 502, Ve 7.0, Rate 15, SPO2 99%, HR 85. Alarm settings: Vt 1500/200, Pressure 30/6, Rate 35/5, Low Ve 5.0, 20s Apnea parameter. SICU to bedside to assess. SICU staff adjusted settings EPAP changed to 7, FIO2 weaned to 40%. IVONE Espinoza at bedside with SICU staff physicians. Patient was transported by AMET team to G54 Bed 10. Report and care transferred to IVONE Espinoza. SIGNATURE: David Tsang RRT PATIENT NAME: Sherman Marie DATE: May 25, 2023 TIME: 2:04 AM PAGER/CONTACT #: 05/25/23 [phone] RT Rapid Response Is this a Rapid Response? Yes Rapid Response Team AMET $ CPR/Code Blue No RT medication given No Patient intubated No Patient suctioned No Blood Gases Drawn No Vitals/Oxygenation Pulse 85 Resp 16 O2 Therapy BIPAP $Oxygen Therapy $Performed %FIO2 40 $Oximetry $Performed Pulse Oximetry Monitoring Continuous Pulse Oximetry Site L Index Finger Resp Assessment: Within Normal Limits (WNL): Rhythm Regular and Unlabored; No Cough or Sputum; Breath Sounds Clear All Lobes Assessment Type Rapid Response Respiratory Assessment X Respiratory Characteristics Symmetrical Chest Excursion Respiratory Rhythm/Pattern Unlabored;Regular;NIV/ CPAP/BIPAP Breath Sounds X All Lobes Anterior;Diminished All Lobes;Crackles All Lobes Normal [facility] THERAPY NT HNO ID: [id number] Author: DAVID TSANG RRT Service: ? Author Type: Registered Resp Therapist Type: Therapy (PT/OT/Speech/Resp) Filed: 05/25/2023 00:42 Note Text: RESPIRATORY THERAPY PROGRESS NOTE SERVICE DATE: 05/25/2023 SERVICE TIME: AMET response for O2 desaturation while sleeping. RN states SPO2 desat to 78% so she increased to O2 flow from 4L to 6L inline with HS CPAP. At time of AMET contact, SPO2 is 98%. No acute respiratory distress noted. Heart rate is 85. Respiratory rate is 16 nonlabored. Bilateral breath sounds are clear and diminished. No wheezing noted. SIGNATURE: David Tsang RRT PATIENT NAME: Sherman Marie DATE: May 25, 2023 TIME: 12:39 AM PAGER/CONTACT #: 05/25/23 [phone] RT Rapid Response Is this a Rapid Response? Yes Rapid Response Team AMET $ CPR/Code Blue No RT medication given No Patient intubated No Patient suctioned No Blood Gases Drawn No Vitals/Oxygenation Pulse 85 Resp 16 SpO2 98 % O2 Therapy CPAP $Oxygen Therapy $Performed Liters 6 Reason Oxygen Source Changed Patient found on different device from previous charting (RN states O2 flow increased to 6L due to desat prior to time of AMET contact.) $Oximetry $Performed Pulse Oximetry Monitoring Continuous Pulse Oximetry Site L Index Finger Resp Assessment: Within Normal Limits (WNL): Rhythm Regular and Unlabored; No Cough or Sputum; Breath Sounds Clear All Lobes Assessment Type Rapid Response Respiratory Assessment X Respiratory Characteristics Symmetrical Chest Excursion Respiratory Rhythm/Pattern Unlabored;Regular Breath Sounds X Right Upper Lobe Anterior;Clear;Diminis hed Right Middle Lobe Anterior;Clear;Diminis hed Right Lower Lobe Anterior;Diminished Left Upper Lobe Anterior;Clear Left Lower Lobe Anterior;Clear;Diminis hed Normal [facility] XR CHEST 1V FRONTAL PORTon 0 05-25-2023 XR CHEST 1V FRONTAL PORT * * *Final Report* * * DATE OF EXAM: May 25 2023 3:38PM JOSE [id number] - XR CHEST 1V FRONTAL PORT / PROCEDURE REASON: Post-operative/post-pr ocedure assessment * * * * Physician Interpretation * * * * EXAMINATION: CHEST RADIOGRAPH (PORTABLE SINGLE VIEW AP) Exam Date/Time: 05/25/2023 3:38 PM Clinical History: Post-operative/post-pr ocedure assessment MQ: XCPMC_6 Comparison: Same day RESULT: EVALUATION IS LIMITED BY OVERLYING EXTERNAL SHADOWS, INCLUDING MONITORING WIRES Lines, tubes, and devices: None. Lungs and pleura: Improvement of partial atelectasis in both lungs. Mild decrease in prominence of the lung markings is noted bilaterally and could be due to crowded vessels with possible underlying mild interstitial edema or inflammation. Right hemidiaphragm remains mildly elevated. No significant pleural effusion or pneumothorax. Cardiomediastinal silhouette: Stable cardiomediastinal silhouette. Other: . IMPRESSION: See result. Forensic Accountant: ISAIAH Transcribe Date/Time: May 25 2023 6:15P Dictated by : FINESSE AGUILAR MD This examination was interpreted and the report reviewed and electronically signed by: FINESSE AGUILAR MD on May 25 2023 6:16PM EST [id number] [facility] XR CHEST 1V FRONTAL PORT * * *Final Report* * * DATE OF EXAM: May 25 2023 12:47AM JOSE [id number] - XR CHEST 1V FRONTAL PORT / PROCEDURE REASON: Shortness of breath * * * * Physician Interpretation * * * * EXAMINATION: CHEST RADIOGRAPH (PORTABLE SINGLE VIEW AP) Exam Date/Time: 05/25/2023 12:47 AM Clinical History: Shortness of breath MQ: XCPMC_6 Comparison: None RESULT: Lines, tubes, and devices: Lungs and pleura: Diffuse hazy opacity may represent edema, infection/aspiration is a possibility. Blunted CP angles. Cardiomediastinal silhouette: Enlarged Other: . IMPRESSION: See result. Forensic Accountant: PSCB Transcribe Date/Time: May 25 2023 7:15A Dictated by : BEAU KIM MD This examination was interpreted and the report reviewed and electronically signed by: BEAU KIM MD on May 25 2023 7:17AM EST [id number] [facility] aPTT PPPon 05-25-2023 aPTT Coag (PPP) [Time] 28.3 s Normal 23.0-32.4 Cl [facility] Comment on above: Order Comment: Speci men Type: BLOOD SPECIMENOrdering Facility: [facility] Address: [address] [place] [address] Performed By: #### 1 4979-9, 53991-5 ####[facility] [id number] [facility] [id number] [place] ANES POSTPROC EVALon 024 ANES POSTPROC EVAL HNO ID: [id number] Author: CECY VALADEZ MD, PhD Service: ? Author Type: Anesthesiologist Type: Anesthesia Postprocedure Evaluation Filed: 05/24/2023 14:14 Note Text: POST ANESTHESIA EVALUATION NOTE : 1980 Procedure Summary Date: 05/24/23 [address] Start: 730 Anesthesia Stop: 125 Procedure: LAPAROSCOPIC GASTRIC RESTRICTIVE SURG W/ BYPASS AND FARRAH-EN-Y 150CM OR LESS (Abdomen) Diagnosis: Morbid obesity (HCC) Pre-op examination (Morbid obesity (HCC) [E66.01]) (Pre-op examination [Z01.818]) Surgeons: Michael Enicso MD Responsible Provider: Cecy Valadez MD, PhD Anesthesia Type: general ASA Status: 3 Anesthesia Type: general Airway Type: ETT Last Vitals Vitals Value Taken Time BP 127/67 05/24/23 1400 Temp 36.3 ?C (97.3 ?F) 05/24/23 1252 Pulse 90 05/24/23 1411 Resp 26 05/24/23 1411 SpO2 95 % 05/24/23 1411 Vitals shown include unfiled device data. Post Anesthesia Patient Status Patient Evaluation: PACU. PACU/ICU Patient Condition: stable. Anticipated Disposition: inpatient floor planned admission. Neurological Status: aware and responsive. Pulmonary Status: breathing comfortably on supplemental oxygen Airway Control: returned to baseline unsupported. Cardiovascular Status: stable. Pain Management: clinically adequate Postoperative Hydration: acceptable. Intraoperative Events: no significant anesthesia events Post Operative Nausea/Vomiting Status: no significant post operative nausea or vomiting Recommendation: continue current plan of care. Anesthesia Observations No notable events were associated with this procedure. Documented by Nilda Upton APRN.PERSONALIZED LIVING MANAGER NURSE 05/24/2023 12:48 PM EST SIGNATURE: Jes Valadez MD, PhD PATIENT NAME: Sherman Marie DATE: May 24, 2023 TIME: 2:13 PM CSN: [id number] [facility] ANES PRE-OPon 05-24-2023 ANES PRE-OP HNO ID: [id number] Author: CECY VALADEZ MD, PhD Service: ? Author Type: Anesthesiologist Type: Anesthesia Preprocedure Evaluation Filed: 05/24/2023 07:22 Note Text: ANESTHESIOLOGY DAY OF SURGERY NOTE : 1980 Procedure Information Date/Time: 05/24/23729 Procedure: LAPAROSCOPIC LONGITUDINAL GASTRECTOMY, GASTRIC RESTRICTIVE PROCEDURE (Abdomen) Location: [facility] Surgeons: Michael Enciso MD Estimated body mass index is 82.61 kg/m? as calculated from the following: Height as of this encounter: 182.9 cm (6'). Weight as of this encounter: 276.3 kg (609 lb 1.6 oz). Most recent hematocrit and potassium results: Hematocrit 38.8 05/23/2023 Potassium 4.1 05/23/2023 Relevant Problems ANESTHESIA (+) ISI (obstructive sleep apnea) ENDO (+) Acquired hypothyroidism GI (+) Gastroesophageal reflux disease without esophagitis PULMONARY (+) ISI (obstructive sleep apnea) I - PHYSICAL EVALUATION AIRWAY Patient intubated: No. Tracheostomy tube not present Mallampati: I. TM distance: >3 FB. Neck ROM: full ROM without neurological symptoms. Mouth opening: adequate. Short neck: no. Thick neck: no Microretrognathia/Micr onagthia/Recessed Chin: No DENTAL Dental findings: teeth intact. Additional exam findings: no II - ANESTHESIA PLAN ASA Score: 3 Anesthetic Plan: general Airway type: ETT The patient is not a current smoker. NPO Status: adequate Anesthetic plan additional comments: Medical History Gastroesophageal reflux disease without esophagitis Lymphedema BMI 70 and over, adult (HCC) ISI (obstructive sleep apnea) Acquired hypothyroidism . Beta Fly Administration of chronic beta fly medication not planned. Monitoring Plan Monitoring plan: standard ASA. Post Procedure Analgesic Plan Postoperative analgesic plan: parenteral or oral opioids. Informed Consent Anesthetic risks, benefits, alternatives, personnel and consent discussed: yes. Patient / Responsible Libertarian agrees to proceed: yes Patient / Surrogate agrees to blood products: Yes DNR status not reviewed with patient and/or family prior to surgery. Significant changes in the patient condition since the History and Physical, not otherwise documented in primary service progress note: no. Potential Anesthesia issues that may suggest increased risk of complications or contraindication to planned procedure: none. No vitals data found for the desired time range. Facility-Administered Medications as of 05/24/2023 Medication Dose Route Frequency - NaCl 0.9% iv flush bag 20 mL INTRAVENOUS PRN - lactated ringers iv infusion 100 mL/hr INTRAVENOUS CONTINUOUS - [COMPLETED] acetaminophen 1,000 mg tab(s) (TYLENOL) 1,000 mg ORAL ONCE - lidocaine 4 % 1 Patch (SALONPAS) 1 Patch TRANSDERMAL DAILY AT 9 PM And - lidocaine patch - REMOVE OTHER DAILY And - lidocaine - VERIFY PATCH OTHER q 8 H Outpatient Medications as of 05/24/2023 Medication Sig - cholecalciferol, Vitamin D3, (VITAMIN D3) 1,250 mcg (50,000 unit) cap capsule Take 1 capsule by mouth one time a week. Afterwards take 2000 units over the counter daily - levothyroxine (SYNTHROID) 125 mcg tablet - torsemide (DEMADEX) 100 mg tablet Take 100 mg by mouth once daily. - spironolactone (ALDACTONE) 25 mg tablet Take 25 mg by mouth once daily. - famotidine (PEPCID) 40 mg tablet (Patient not taking: Reported on 05/23/2023) - traMADol (ULTRAM) 50 mg tablet Take 50 mg by mouth every 8 hours as needed for pain. I have interviewed and examined the patient. I have reviewed the medical record and/or the pre-anesthesia evaluation, pertinent labs, and test results. This contains updated information obtained within 48 hours of Surgery/Procedure. SIGNATURE: Jes Valadez MD, PhD PATIENT NAME: Sherman Marie DATE: May 24, 2023 TIME: 6:57 AM CSN: [id number] [facility] BRIEF OP NOTon 05-24-2023 BRIEF OP NOT HNO ID: [id number] Author: CRISTIAN ANTON MD Service: General Surgery Author Type: Fellow Type: Brief Op Note Filed: 05/24/2023 12:28 Note Text: BRIEF OPERATIVE NOTE [facility] LOG ID: [id number] SURGERY/PROCEDURE DATE: 05/24/2023 INCISION/PROCEDURE START TIME: 8:42 AM INCISION CLOSE/PROCEDURE END TIME: 12:18 PM SURGEON(S) AND DIGITAL IMAGING SPECIALIST(S): Surgeon(s) and Role: * Michael Enciso MD - Primary * Cristian Anton MD - Fellow No Additional Staff PROCEDURES AND ANESTHESIA: Procedure(s) and Anesthesia Type: * LAPAROSCOPIC GASTRIC RESTRICTIVE SURG W/ BYPASS AND FARRAH-EN-Y 150CM OR LESS - General Revision: No Modifiers: - Farrah-en-Y: length of the Farrah limb link 120 cm and BP limb is 100 cm TAP Block Performed: No DIAGNOSIS CODE(S): Pre-Op Diagnosis Codes: * Morbid obesity (HCC) [E66.01] * Pre-op examination [Z01.818] Post-Op Diagnosis Codes: * Same as preoperative diagnosis ANESTHESIA: Anesthesia Start Time: * No date or time recorded * Anesthesia End Time: * No date or time recorded * Was Temperature Maintained Above 36.5C for the Entire Case: Yes SURGICAL APPROACH: Laparoscopic DVT PREVENTION: Intermittent venous compression device and Anticoagulation INTAKE/OUTPUT: FLUID REPLACEMENT AMOUNT: 1500 mL RBC Transfusion? No Estimated Blood Loss: 50 ml DRAINS: No WOUND CLASSIFICATION: Clean Contaminated FINDINGS - LEAK TEST: Negative SPECIMENS: None INTRA-OPERATIVE ADVERSE EVENTS: NONE SIGNATURE: Cristian Anton MD PATIENT NAME: Sherman Marie DATE: May 24, 2023 TIME: 12:27 PM [facility] NURSING PROGon 05-24-2023 NURSING PROG HNO ID: [id number] Author: KULWINDER VARMA RN Service: Nursing Author Type: Registered Nurse Type: Nursing Progress Note Filed: 05/25/2023 02:40 Note Text: When assessing the patient, stated he was having some SOB, trouble with taking in a deep breath. Patient was on Bipap, stating 98%. Paged Dr. Jose Armando MD at bedside, stated patient is stable and to continue to monitor on bipap. 2240 Patient was placed on home unit cpap with 4L, will continue to monitor. 2350 Patients spox 78-80s on cpap 4L while he was sleeping, when patient is awake and talking spox 90s. Dr. Rudd made aware. Called AMET for change in O2 requirements. 0100 Patient destat 70-80s on cpap 6L while sleeping. Dr. Rudd made aware, stated they are calling SICU for bed placement, call AMET, and place patient back on BIPAP. Patient was placed back on bipap, AMET called. 0200 Report call to G54 to Joyce MELÉNDEZ, patient was transported to unit with AMET team. 0230 Patients belongings sent to administrative services. [facility] NURSING PROG HNO ID: [id number] Author: DEBBIE FLORENTINO RN Service: Nursing Author Type: Registered Nurse Type: Nursing Progress Note Filed: 05/24/2023 15:23 Note Text: Other: PACU Pt placed on BIPaP as ordered. Medicating for pain. Dr. Rangel at bedside to assess. No other orders obtained. Pt states pain is alittle better. States SOB even with BiPAP is about the same. Sats holding in the upper 90s with BiPAP. See flowsheet. Will monitor. [facility] NURSING PROG HNO ID: [id number] Author: DEBBIE FLORENTINO RN Service: Nursing Author Type: Registered Nurse Type: Nursing Progress Note Filed: 05/24/2023 14:37 Note Text: Other: PACU Pt having difficult time breathing. Using accessory muscle and fish breathing. Sats remain in the mid 90s. See flowsheet. Boosted up in bed. Bed placed in chair position. Pillows placed behind back to improve lung capacity while in upright position. States he uses inhaler daily. Albuterol neb in place. Medicated for pain. Will monitor. [facility] NURSING PROG HNO ID: [id number] Author: DEBBIE FLORENTINO RN Service: Nursing Author Type: Registered Nurse Type: Nursing Progress Note Filed: 05/24/2023 14:11 Note Text: Other: PACU Pt states he is SOB and has belly pain. Lungs clear but diminished on auscultation. Page placed to PACU resident to come assess. Will monitor. [facility] OPERATIVE NOon 05-24-2023 OPERATIVE NO HNO ID: [id number] Author: MICHAEL ENCISO MD Service: ? Author Type: Physician Type: Operative Report Filed: 05/24/2023 14:02 Note Text: OPERATIVE/PROCEDURE REPORT LOG ID: [id number] Surgery/Procedure Date: 05/24/2023 Incision/Procedure Start Time: 8:42 AM Incision Close/Procedure End Time: 12:18 PM Surgeon(s)/Procedurali st(s) and Financial Compliance Officer(s): Surgeon(s) and Role: * Michael Enciso MD - Primary * Cristian Anton MD - Fellow Procedure(s): 1. Laparoscopic Farrah-en-Y gastric bypass (120-cm antecolic antegastric Farrah limb, and 100-cm biliopancreatic limb). 2. Esophagogastroscopy. Pre-Op/Pre-Procedure Diagnosis: 1. Morbid obesity (body mass index equals 85 kg per meter square, body weight 609 lbs). 2. Weight related comorbidities including lymphedema, ISI, CKD, limited mobility Post-Op/Post-Procedure Diagnosis: - Morbid Obesity Anesthesia: General Operative Indication: Sherman Marie is a 43 year old man with clinically severe obesity and weight related comorbidities as listed. The patient underwent evaluation by our multidisciplinary team and was considered a good candidate for bariatric surgery (gastric sleeve or gastric bypass). We discussed the risks, benefits, alternatives, and potential complications and the patient agreed to proceed. Operative Findings: 1. Upon completion, there was a 15 mL gastric pouch, hand-sewn end-to-side gastrojejunostomy, 120-cm antecolic-antegastric Farrah limb, stapled functional end-to-side enteroenterostomy. 2. Endoscopy with insufflation revealed no leaks. Procedure Details: The patient was taken to the operating room and placed in supine position. A sign in huddle was performed by the surgical and anesthesia teams. Following induction of general anesthesia and endotracheal intubation, the patient was prepped and draped in the usual sterile fashion. A left subcostal incision was made and Veress needle was inserted. The abdomen was insufflated with carbon dioxide to a pressure of 15 mmHg. A 5-mm port laparoscope was inserted. Under direct vision, a 12-mm left paramedian port, 12-mm right upper quadrant port, two 5-mm right subcostal ports, and additional 5-mm left subcostal port were placed. After initial evaluation, we decided to proceed with gastric bypass which would provide a good outcome for him. The omentum was advanced toward the upper abdomen to expose the ligament of Treitz. The jejunum was divided 100 cm from the ligament of Treitz with a morris load stapler. The mesentery was divided with harmonic scalpel. The Farrah limb was then measured 120 cm distally, and was approximated to the BP limb with 2-0 Surgidac. Enterotomies were made in each bowel limb and the stapler was inserted, applied, and a stapled end-to-side enteroenterostomy was constructed. The common enterotomy site was closed with a morris load (triple stapling technique for jejunojejunostomy). The mesenteric defect was closed with running 2-0 Surgidac suture. The Farrah limb was then advanced antecolic. The omentum was divided in the middle to reduce tension using the ultrasonic dissector. We divided the gastrohepatic ligament below leftgastric artery pedicle and saved the artery. We applied the purple load stapler in multiple times across the stomach to create an approximately 15 mL gastric pouch. Staple lines were examined on both sides and found to be intact. The end of the Farrah limb was sutured to the posterior wall of the gastric pouch with running 2- 0 Surgidac. Enterotomies were made in the pouch and the Farrah limb with the ultrasonic dissector. A hand-sewn 2 layer end-to-side anastomosis was performed using running 2-0 Polysorb suture. Prior to closing the inner layer anteriorly, the scope was passed through the pouch into the Farrah limb to ensure stoma size. A second anterior layer of 2-0 Polysorb was applied to complete the 2-layer anastomosis. Endoscopy with insufflation revealed no leaks, bleeding, or obstruction. The scope was withdrawn. We then placed fibrin glue over the GJ anastomosis. An omental patch was placed over the anastomosis and secured with 2-0 Surgidac. We closed the Guillen defect with running 2-0 Surgidac suture. We closed the fascia of large port with #0 Vicryl using suture passer. Final inspection revealed no bleeding or injury. Surgical counts were correct. All instruments and trocars were removed. The abdomen was deflated. Skin incisions were closed with 4-0 Vicryl subcuticular. Sterile dressings were applied. Procedure was tolerated well. The patient went to recovery in good condition. Since there was no qualified resident available to assist in this complex surgery, a bariatric surgical fellow (Dr Anton) assisted me for the entire surgery. Fellow assisted me with port placement, exposure, dissection, anastomoses of bowel and stomach, endoscopy, and closure under my supervision. Given patient's large size and comorbi (more content not included)... [facility] CBC W Auto Differential pane l (Bld)on 05-23-2023 Basophils (Bld) [#/Vol] 10*3/uL Normal <0.11 [facility] Comment on above: Order Comment: Speci men Type: BLOOD SPECIMEN Ordering Facility: [facility] Address: [address] [place] [address] Performed By: #### 5 7021-8 #### [facility] CLIA [id number] [address] [place] [address] [place] Basophils/100 WBC (Bld) 0.3 % [facility] Comment on above: Order Comment: Speci men Type: BLOOD SPECIMEN Ordering Facility: [facility] Address: [address] [place] [address] Performed By: #### 5 7021-8 #### [facility] CLIA [id number] [address] [place] [address] [place] Differential cell count method Nom (Bld) Auto [facility] Comment on above: Order Comment: Speci men Type: BLOOD SPECIMEN Ordering Facility: [facility] Address: [address] [place] [address] Performed By: #### 5 7021-8 #### [facility] CLIA [id number] [address] [place] [address] [place] Eosinophils (Bld) [#/Vol] 0.08 10*3/uL Normal <0.46 [facility] Comment on above: Order Comment: Speci men Type: BLOOD SPECIMEN Ordering Facility: [facility] Address: [address] [place] [address] Performed By: #### 5 7021-8 #### [facility] CLIA [id number] [address] [place] [address] [place] Eosinophils/100 WBC (Bld) 1.3 % [facility] Comment on above: Order Comment: Speci men Type: BLOOD SPECIMEN Ordering Facility: [facility] Address: [address] [place] [address] Performed By: #### 5 7021-8 #### [facility] CLIA [id number] [address] [place] [address] [place] Erythrocyte distribution width (RBC) [Ratio] 16.0 % High 11.5-15.0 [facility] Comment on above: Order Comment: Speci men Type: BLOOD SPECIMEN Ordering Facility: [facility] Address: [address] [place] [address] Performed By: #### 5 7021-8 #### [facility] CLIA [id number] [address] [place] [address] [place] Hematocrit (Bld) [Volume fraction] 38.8 % Low 39.0-51.0 [facility] Comment on above: Order Comment: Speci men Type: BLOOD SPECIMEN Ordering Facility: [facility] Address: [address] [place] [address] Performed By: #### 5 7021-8 #### [facility] CLIA [id number] [address] [place] [address] [place] Hemoglobin (Bld) [Mass/Vol] 11.5 g/dL Low 13.0-17.0 [facility] Comment on above: Order Comment: Speci men Type: BLOOD SPECIMEN Ordering Facility: [facility] Address: [address] [place] [address] Performed By: #### 5 7021-8 #### [facility] CLIA [id number] [address] [place] [address] [place] Immature granulocytes (Bld) [#/Vol] 0.03 10*3/uL Normal <0.10 [facility] Comment on above: Order Comment: Speci men Type: BLOOD SPECIMEN Ordering Facility: [facility] Address: [address] [place] [address] Performed By: #### 5 7021-8 #### [facility] CLIA [id number] [address] [place] [address] [place] Immature granulocytes/100 WBC (Bld) 0.5 % [facility] Comment on above: Order Comment: Speci men Type: BLOOD SPECIMEN Ordering Facility: [facility] Address: [address] [place] [address] Performed By: #### 5 7021-8 #### [facility] CLIA [id number] [address] [place] [address] [place] Lymphocytes (Bld) [#/Vol] 0.77 10*3/uL Low 1.00-4.00 [facility] Comment on above: Order Comment: Speci men Type: BLOOD SPECIMEN Ordering Facility: [facility] Address: [address] [place] [address] Performed By: #### 5 7021-8 #### [facility] CLIA [id number] [address] [place] [address] [place] Lymphocytes/100 WBC (Bld) 12.3 % [facility] Comment on above: Order Comment: Speci men Type: BLOOD SPECIMEN Ordering Facility: [facility] Address: [address] [place] [address] Performed By: #### 5 7021-8 #### [facility] CLIA [id number] [address] [place] [address] [place] MCH (RBC) [Entitic mass] 27.6 pg Normal 26.0-34.0 [facility] Comment on above: Order Comment: Speci men Type: BLOOD SPECIMEN Ordering Facility: [facility] Address: [address] [place] [address] Performed By: #### 5 7021-8 #### [facility] CLIA [id number] [address] [place] [address] [place] MCHC (RBC) [Mass/Vol] 29.6 g/dL Low 30.5-36.0 [facility] Comment on above: Order Comment: Speci men Type: BLOOD SPECIMEN Ordering Facility: [facility] Address: [address] [place] [address] Performed By: #### 5 7021-8 #### [facility] CLIA [id number] [address] [place] [address] [place] MCV (RBC) [Entitic vol] 93.3 fL Normal 80.0-100.0 [facility] Comment on above: Order Comment: Speci men Type: BLOOD SPECIMEN Ordering Facility: [facility] Address: [address] [place] [address] Performed By: #### 5 7021-8 #### [facility] CLIA [id number] [address] [place] [address] [place] Monocytes (Bld) [#/Vol] 0.41 10*3/uL Normal <0.87 [facility] Comment on above: Order Comment: Speci men Type: BLOOD SPECIMEN Ordering Facility: [facility] Address: [address] [place] [address] Performed By: #### 5 7021-8 #### [facility] CLIA [id number] [address] [place] [address] [place] Monocytes/100 WBC (Bld) 6.5 % [facility] Comment on above: Order Comment: Speci men Type: BLOOD SPECIMEN Ordering Facility: [facility] Address: [address] [place] [address] Performed By: #### 5 7021-8 #### [facility] CLIA [id number] [address] [place] [address] [place] Neutrophils (Bld) [#/Vol] 4.96 10*3/uL Normal 1.45-7.50 [facility] Comment on above: Order Comment: Speci men Type: BLOOD SPECIMEN Ordering Facility: [facility] Address: [address] [place] [address] Performed By: #### 5 7021-8 #### [facility] CLIA [id number] [address] [place] [address] [place] Neutrophils/100 WBC (Bld) 79.1 % [facility] Comment on above: Order Comment: Speci men Type: BLOOD SPECIMEN Ordering Facility: [facility] Address: [address] [place] [address] Performed By: #### 5 7021-8 #### [facility] CLIA [id number] [address] [place] [address] [place] Nucleated RBC (Bld) [#/Vol] 10*3/uL Normal <0.01 [facility] Comment on above: Order Comment: Speci men Type: BLOOD SPECIMEN Ordering Facility: [facility] Address: [address] [place] [address] Performed By: #### 5 7021-8 #### [facility] CLIA [id number] [address] [place] [address] [place] Nucleated RBC/100 WBC (Bld) [Ratio] 0.0 /100 WBC [facility] Comment on above: Order Comment: Speci men Type: BLOOD SPECIMEN Ordering Facility: [facility] Address: [address] [place] [address] Performed By: #### 5 7021-8 #### [facility] CLIA [id number] [address] [place] [address] [place] Platelet mean volume (Bld) [Entitic vol] 10.8 fL Normal 9.0-12.7 [facility] Comment on above: Order Comment: Speci men Type: BLOOD SPECIMEN Ordering Facility: [facility] Address: [address] [place] [address] Performed By: #### 5 7021-8 #### [facility] CLIA [id number] [address] [place] [address] [place] Platelets (Bld) [#/Vol] 222 10*3/uL Normal 150-400 [facility] Comment on above: Order Comment: Speci men Type: BLOOD SPECIMEN Ordering Facility: [facility] Address: [address] [place] [address] Performed By: #### 5 7021-8 #### [facility] CLIA [id number] [address] [place] [address] [place] RBC (Bld) [#/Vol] 4.16 10*6/uL Low 4.20-6.00 [facility] Comment on above: Order Comment: Speci men Type: BLOOD SPECIMEN Ordering Facility: [facility] Address: [address] [place] [address] Performed By: #### 5 7021-8 #### [facility] CLIA [id number] [address] [place] [address] [place] WBC (Bld) [#/Vol] 6.27 10*3/uL Normal 3.70-11.00 [facility] Comment on above: Order Comment: Speci men Type: BLOOD SPECIMEN Ordering Facility: [facility] Address: [address] [place] [address] Performed By: #### 5 7021-8 #### [facility] CLIA [id number] [address] [place] [address] [place] Elyssa 05-23-2023 SENTHIL Telephone ([facility]) JAYSHERMAN ([id number]) 1980 M Date Time Provider Department 05/23/23 MICHAEL ENCISO During your visit today, we recorded the following information about you: Dominick Monge RN 05/23/2023 1:27 PM Signed [phone] Phoned patient scheduled for surgery 05-24-23 unable to secure a ride to [facility] today. Patient will reach out to friends to see if he can secure a ride to [facility] today and provide update to RN. 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 He has multiple appts today and is concerned it will affect his surgery tomorrow. Please call patient to advise. Prescriptions as of 05/23/2023 - cholecalciferol, Vitamin D3, (VITAMIN D3) 1,250 mcg (50,000 unit) cap capsule Take 1 capsule by mouth one time a week. Afterwards take 2000 units over the counter daily - levothyroxine (SYNTHROID) 125 mcg tablet - torsemide (DEMADEX) 100 mg tablet - spironolactone (ALDACTONE) 25 mg tablet - famotidine (PEPCID) 40 mg tablet - traMADol (ULTRAM) 50 mg tablet Problem List As Of Date 05/23/2023 Noted Resolved Morbid obesity (HCC) [E66.01] 10/25/2022 Lymphedema [I89.0] 10/25/2022 Limited mobility [Z74.09] 10/25/2022 BMI 70 and over, adult (HCC) [Z68.45] 11/26/2022 Gastroesophageal reflux disease without esophag*11/26/2022 ISI (obstructive sleep apnea) [G47.33] 11/26/2022 Acquired hypothyroidism [E03.9] 11/26/2022 Elevated serum creatinine [R79.89] 04/13/2023 Encounter Status:Closed by DOMINICK MONGE on 05/23/23 [facility] CONFIRM BLOOD TYPEon 024 ABO O [facility] Comment on above: Order Comment: Speci men Type: BLOOD SPECIMENOrdering Facility: [facility] Address: [address] [place] [address] Performed By: #### C ONABO ####[facility] [id number] [place] [address] [place] Rh Nom (Bld) Positive [facility] Comment on above: Order Comment: Speci men Type: BLOOD SPECIMENOrdering Facility: [facility] Address: [address] [place] [address] Performed By: #### C ONABO ####[facility] [id number] [place] [address] [place] Comprehensive metabolic 2000 panelon 05-23-2023 Albumin [Mass/Vol] 4.1 g/dL Normal 3.9-4.9 [facility] Comment on above: Order Comment: Speci men Type: BLOOD SPECIMEN Ordering Facility: [facility] Address: [address] [place] [address] Performed By: #### 2 4323-8, , 2776-04 #### [facility] CLIA [id number] [address] [place] [address] [place] ALP [Catalytic activity/Vol] 54 U/L Normal 38-113 [facility] Comment on above: Order Comment: Speci men Type: BLOOD SPECIMEN Ordering Facility: [facility] Address: [address] [place] [address] Performed By: #### 2 4323-8, , 2776-1 #### [facility] CLIA [id number] [address] [place] [address] [place] ALT [Catalytic activity/Vol] 10 U/L Normal 10-54 [facility] Comment on above: Order Comment: Speci men Type: BLOOD SPECIMEN Ordering Facility: [facility] Address: [address] [place] [address] Performed By: #### 2 4323-8, 48379-3, 2776- #### [facility] CLIA [id number] [address] [place] [address] [place] Anion gap [Moles/Vol] 10 mmol/L Normal 9-18 [facility] Comment on above: Order Comment: Speci men Type: BLOOD SPECIMEN Ordering Facility: [facility] Address: [address] [place] [address] Performed By: #### 2 4323-8, , 2776- #### [facility] CLIA [id number] [address] [place] [address] [place] AST [Catalytic activity/Vol] 14 U/L Normal 14-40 [facility] Comment on above: Order Comment: Speci men Type: BLOOD SPECIMEN Ordering Facility: [facility] Address: [address] [place] [address] Performed By: #### 2 4323-8, , 2776- #### [facility] CLIA [id number] [address] [place] [address] [place] Bilirubin [Mass/Vol] 2.0 mg/dL High 0.2-1.3 [facility] Comment on above: Order Comment: Speci men Type: BLOOD SPECIMEN Ordering Facility: [facility] Address: [address] [place] [address] Performed By: #### 2 4323-8, 96784-1, 7- #### [facility] CLIA [id number] [address] [place] [address] [place] Calcium [Mass/Vol] 9.2 mg/dL Normal 8.5-10.2 [facility] Comment on above: Order Comment: Speci men Type: BLOOD SPECIMEN Ordering Facility: [facility] Address: [address] [place] [address] Performed By: #### 2 4323-8, 29174-9, 2776-04 #### [facility] CLIA [id number] [address] [place] [address] [place] Chloride [Moles/Vol] 101 mmol/L Normal 97-105 [facility] Comment on above: Order Comment: Speci men Type: BLOOD SPECIMEN Ordering Facility: [facility] Address: [address] [place] [address] Performed By: #### 2 4323-8, , 2776-04 #### [facility] CLIA [id number] [address] [place] [address] [place] CO2 [Moles/Vol] 28 mmol/L Normal 22-30 [facility] Comment on above: Order Comment: Speci men Type: BLOOD SPECIMEN Ordering Facility: [facility] Address: [address] [place] [address] Performed By: #### 2 4323-8, , 2776-04 #### [facility] CLIA [id number] [address] [place] [address] [place] Creatinine [Mass/Vol] 1.34 mg/dL High 0.73-1.22 [facility] Comment on above: Order Comment: Speci men Type: BLOOD SPECIMEN Ordering Facility: [facility] Address: [address] [place] [address] Performed By: #### 2 4323-8, 93283-2, 2776-04 #### [facility] CLIA [id number] [address] [place] [address] [place] Creatinine and Glomerular filtration rate.predicted panel (S/P/Bld) 67 mL/min/1.73m??? Normal >=60 [facility] Comment on above: Order Comment: Van maier Type: BLOOD SPECIMEN Ordering Facility: [facility] Address: [address] [place] [address] Result Comment: Hiral mated Glomerular Filtration Rate (eGFR) is calculated using the 2020 CKD-EPI creatinine equation. This equation utilizes serum creatinine, sex, and age as parameters. The creatinine assay has traceable calibration to isotope dilution-mass spectrometry. Refer to KDIGO guidelines for clinical interpretation. In patients with unstable renal function, e.g. those with acute kidney injury, the eGFR may not accurately reflect actual GFR. Performed By: #### 2 4323-8, 75351-6, 2776-04 #### [facility] CLIA [id number] [address] [place] [address] [place] Glucose [Mass/Vol] 113 mg/dL High 74-99 [facility] Comment on above: Order Comment: Van maier Type: BLOOD SPECIMEN Ordering Facility: [facility] Address: [address] [place] [address] Result Comment: The [place] [employer] (ADA) provides guidance for cutoff values for fasting glucose and random glucose. The ADA defines fasting as no caloric intake for at least 8 hours. Fasting plasma glucose results between 100 to 125 mg/dL indicate increased risk for diabetes (prediabetes). Fasting plasma glucose results greater than or equal to 126 mg/dL meet the criteria for diagnosis of diabetes. In the absence of unequivocal hyperglycemia, results should be confirmed by repeat testing. In a patient with classic symptoms of hyperglycemia or hyperglycemic crisis, random plasma glucose results greater than or equal to 200 mg/dL meet the criteria for diagnosis of diabetes. Reference: Standards of Medical Care in Diabetes 2016, [place] [employer]. Diabetes Care. 2016.39(Suppl 1). Performed By: #### 2 4323-8, 27158-8, 2776- #### [facility] CLIA [id number] [address] [place] [address] [place] Potassium [Moles/Vol] 4.1 mmol/L Normal 3.7-5.1 [facility] Comment on above: Order Comment: Speci men Type: BLOOD SPECIMEN Ordering Facility: [facility] Address: [address] [place] [address] Performed By: #### 2 4323-8, , 2776-04 #### [facility] CLIA [id number] [address] [place] [address] [place] Protein [Mass/Vol] 8.5 g/dL High 6.3-8.0 [facility] Comment on above: Order Comment: Speci men Type: BLOOD SPECIMEN Ordering Facility: [facility] Address: [address] [place] [address] Performed By: #### 2 4323-8, , 2776-04 #### [facility] CLIA [id number] [address] [place] [address] [place] Sodium [Moles/Vol] 139 mmol/L Normal 136-144 [facility] Comment on above: Order Comment: Speci men Type: BLOOD SPECIMEN Ordering Facility: [facility] Address: [address] [place] [address] Performed By: #### 2 4323-8, , 2776-04 #### [facility] CLIA [id number] [address] [place] [address] [place] Urea nitrogen [Mass/Vol] 12 mg/dL Normal 9-24 [facility] Comment on above: Order Comment: Speci men Type: BLOOD SPECIMEN Ordering Facility: [facility] Address: [address] [place] [address] Performed By: #### 2 4323-8, , 2776-04 #### [facility] CLIA [id number] [address] [place], [place] [id number] [place] HISTORY PHYSICALon 4 HISTORY PHYSICAL HNO ID: [id number] Author: MICHAEL ENCISO MD Service: General Surgery Author Type: Physician Type: H&P Filed: 05/27/2023 14:01 Note Text: GENERAL SURGERY HISTORY AND PHYSICAL NOTE SERVICE DATE: 05/23/2023 SERVICE TIME: 2199 PRIMARY CARE PHYSICIAN: Kishor Snyder PA-C Subjective HISTORY OF PRESENT ILLNESS: Mr. Marie is a 43 year old male who presents pre-operatively for bariatric/metabolic surgery. His history is notable for hypothyroidism, ISI (on CPAP), lymphedema (on spironolactone and lasix), BMI 86.4. He is to under-go sleeve gastrectomy on 05/24/2023. Patient reports no symptoms at this time. Patient denies history of CVA, [place], VTE. Not on anticoagulation. PAST MEDICAL HISTORY Diagnosis Date Acquired hypothyroidism 11/26/2022 BMI 70 and over, adult (HCC) 11/26/2022 Gastroesophageal reflux disease without esophagitis 11/26/2022 Lymphedema 10/25/2022 ISI (obstructive sleep apnea) 11/26/2022 PAST SURGICAL HISTORY Procedure Laterality Date REMOVAL GALLBLADDER FAMILY HISTORY Problem Relation Age of Onset Anesthesia Problems No Family History Social History Tobacco Use Smoking status: Never Smokeless tobacco: Never Vaping Use Vaping Use: Never used Substance Use Topics Alcohol use: Not Currently Drug use: Never cholecalciferol, Vitamin D3, (VITAMIN D3) 1,250 mcg (50,000 unit) cap capsule, Take 1 capsule by mouth one time a week. Afterwards take 2000 units over the counter daily, Disp: 8 capsule, Rfl: 0 levothyroxine (SYNTHROID) 125 mcg tablet, , Disp: , Rfl: torsemide (DEMADEX) 100 mg tablet, Take 100 mg by mouth once daily., Disp: , Rfl: spironolactone (ALDACTONE) 25 mg tablet, Take 25 mg by mouth once daily., Disp: , Rfl: famotidine (PEPCID) 40 mg tablet, , Disp: , Rfl: traMADol (ULTRAM) 50 mg tablet, Take 50 mg by mouth every 8 hours as needed for pain., Disp: , Rfl: Current Facility-Administered Medications Medication Dose Route Frequency NaCl 0.9% iv flush bag 20 mL INTRAVENOUS PRN [START ON 05/24/2023] lactated ringers iv infusion 100 mL/hr INTRAVENOUS CONTINUOUS lidocaine 4 % 1 Patch (SALONPAS) 1 Patch TRANSDERMAL DAILY AT 9 PM And [START ON 05/24/2023] lidocaine patch - REMOVE OTHER DAILY And lidocaine - VERIFY PATCH OTHER q 8 H ALLERGIES Allergen Reactions Lactose Other: See Comments Sulfa (Sulfonamide * Itching Vancomycin Itching COMPLETE REVIEW OF SYSTEMS: GENERAL: No weight loss, malaise or fevers RESPIRATORY: Negative for cough, hemoptysis, wheezing, COPD, dyspnea or shortness of breath CARDIOVASCULAR: Negative for chest pain, leg swelling, hypertension, CHF or palpitations GI: No nausea, vomiting, or diarrhea : No history of dysuria, frequency or incontinence Objective PHYSICAL EXAM: BP 118/60 Pulse 84 Temp (Src) 98.2 (Oral) Resp 14 Ht 6' 0 (1.83m) Wt 606 lb 12.8 oz (275.2kg) SpO2 100% BMI 82.28 kg/(m2). O2 Therapy: Room Air Physical Exam Performed GENERAL: Alert, no distress, cooperative, Obese HEAD/SINUSES: No significant findings EYES: PERRLA, EOMI LUNGS: Lungs clear to auscultation, Good diaphragmatic excursion CARDIAC: Normal S1 and S2; no rubs, murmurs, or gallops ABDOMEN: Abdomen soft, non-tender, BS normal, No masses or organomegaly DATA: Labs: CBC, Coags, BMP, Mg, Phos Recent Labs 05/23/23 1318 WBC 6.27 HB 11.5* HCT 38.8* PLT 222 NA 139 K 4.1 CHLOR 101 CO2 28 BUN 12 CREAT 1.34* GLUC 113* CA 9.2 P 2.4* Liver Function, Amylase, AND Lipase Recent Labs 05/23/23 1318 TPROT 8.5* ALB 4.1 ALT 10 AST 14 ALKPHOS 54 TBILI 2.0* Impression/Recommendat ions 43M h/o hypothyroidism, ISI (on CPAP), lymphedema (on spironolactone and lasix), BMI 86.4, here pre-operatively for sleeve gastrectomy on 05/24/2023 - Consent obtained - Plan for laparoscopic sleeve gastrectomy tomorrow - CLD, NPO after midnight with IVF - CPAP HS - [facility] completed today - Pre-op labs completed today Discussed with staff surgeon, Dr. Zaria Alberto MD General Surgery PGY-2 Pager: [phone] SIGNATURE: Florin Toribio MD PATIENT NAME: Sherman Marie DATE: May 23, 2023 TIME: 5:54 PM STAFF NOTE I have discussed the case with the resident physician. I agree with the assessment and plan as documented in the resident's note. Michael Enciso MD [facility] HISTORY PHYSICAL HNO ID: [id number] Author: LARY SHARMA PA-C Service: ? Author Type: Physician Financial Compliance Officer Type: H&P Filed: 05/23/2023 14:18 Note Text: HISTORY AND PHYSICAL EXAMINATION SERVICE DATE: 05/23/2023 SERVICE TIME: 2:17 PM PRIMARY CARE PHYSICIAN: Kishor Snyder PA-C Assessment Patient has the following medical conditions which may affect edilia-operative course: Morbid obesity (HCC) -BMI 86.40 Acquired hypothyroidism -managed with Levothyroxine ISI (obstructive sleep apnea) -compliant with CPAP/BiPAP Lymphedema -bilateral lower extremities -on Spironolactone and Lasix Briggs Activity Status Index: METS: Walk indoors, such as around the house (1.75 METs) DASI Score: 1.75 STOP-Bang Score: STOP-Bang Score: (Diagnosed with ISI and is compliant with CPAP/BiPAP ) [id number] Score: [id number] Score: 0 ANESTHESIA FINDINGS: Intubation History: No history of difficult intubation Significant Anesthesia Considerations: Airway History: No history of difficult airway I - PHYSICAL EVALUATION AIRWAY Patient intubated: No. Mallampati: II. TM distance: >3 FB. Neck ROM: limited extension. Mouth opening: adequate. Short neck: yes. Thick neck: yes Nino present: yes Lip Bite Test: II DENTAL Dental findings: teeth intact. II - ANESTHESIA PLAN Beta Fly Monitoring Plan Post Procedure Analgesic Plan PLAN This patient is optimally prepared for surgery pending LABS and EKG. CONSULTS: Patient does not require consults for optimization at this time. The Following Tests/Procedures Have Been Initiated: CMP ordered EKG, CBC, TANDS and conabo ordered by surgical service Planned Anesthetic: Per anesthesia choice REASON FOR VISIT: Sherman Marie is a 43 year old male who is scheduled for Procedure(s): LAPAROSCOPIC LONGITUDINAL GASTRECTOMY, GASTRIC RESTRICTIVE PROCEDURE (N/A) at the request of Dr. Michael Enciso for consultation. My final recommendation will be communicated back to the requesting physician by way of shared medical record or letter. Subjective The patient has the following: ACTIVE PROBLEM LIST Morbid Obesity (Hcc) Lymphedema Limited Mobility Bmi 70 and Over, Adult (Hcc) Gastroesophageal Reflux Disease Without Esophagitis Isi (Obstructive Sleep Apnea) Acquired Hypothyroidism Elevated Serum Creatinine COVID-19 Immunization Status Overdue - Covid-19 Vaccine (1) Never done No completion, postpone, frequency change, or communication history exists for this topic. CHIEF COMPLAINT: Morbid obesity HPI: Sherman Marie is a 43 year old male who presents to [facility] today for preop exam. Patient is scheduled for the above procedure on 05/24/23. Patient is morbidly obese, BMI 86.40. He is compliant with CPAP/BiPAP for ISI. He is on Lasix and Spironolactone for lymphedema of lower extremities. He also takes Synthroid for hypothyroidism. Denies fevers, chills, chest pain, and SOB. REVIEW OF SYSTEMS: General: No weight loss, malaise or fevers. Neurological: Negative for: headaches, impaired sensorium, seizures, TIA and strokes. Respiratory: Positive for: obstructive sleep apnea and CPAP/BiPAP compliant. Negative for: asthma, COPD, current cough, dyspnea, pneumonia within 6 weeks, tobacco use and URI < 2 weeks. Cardiovascular: Negative for: angina, anticoagulation therapy, arrhythmia, CAD, chest pain, CHF, congenital heart defect, DVT/PE, hyperlipidemia, hypertension, murmur/valvular heart disease and PVD. GI: Negative for: abdominal pain, GERD, liver disease, nausea, vomiting and ETOH >2 drinks/day. : Negative for: dysuria, frequent urination, hematuria, nephrolithiasis and renal failure. Endocrine: Positive for: hypothyroidism. Negative for: diabetes mellitus, hyperthyroidism and steroid for chronic problem. Hematology: No history of bleeding or clotting disorder. Patient is not taking anti-coagulation or platelet medications. No history of hematological symptoms or problems. Oncology: No history of CA metastasis, chemo within 30 days, or radiotherapy within 90 days. No history of oncological symptoms or problems. Psych: No history of psychiatric symptoms or problems. Musculoskeletal: Negative for joint pain or swelling, back pain or muscle pain. Skin: Negative for lesions, rash and itching. PAST MEDICAL HISTORY Diagnosis Date Acquired hypothyroidism 11/26/2022 BMI 70 and over, adult (HCC) 11/26/2022 Gastroesophageal reflux disease without esophagitis 11/26/2022 Lymphedema 10/25/2022 ISI (obstructive sleep apnea) 11/26/2022 PAST SURGICAL HISTORY Procedure Laterality Date REMOVAL GALLBLADDER FAMILY HISTORY Problem Relation Age of Onset Anesthesia Problems No Family History Social History Tobacco Use Smoking status: Never Smokeless tobacco: Never Vaping Use Vaping Use: Never used Substance Use Topics Alcohol use: Not Currently Drug use: Never Prior to Admission medications as (more content not included)... Normal [facility] Phosphate SerPl-mCncon 05-23 Phosphate [Mass/Vol] 2.4 mg/dL Low 2.7-4.8 [facility] Comment on above: Order Comment: Van maier Type: BLOOD SPECIMEN Ordering Facility: [facility] Address: [address] [place] [address] Performed By: #### 2 4323-8, , 2776-04 #### [facility] CLIA [id number] [address] [place] [address] [place] Prot/Creat Uron 05-23-2023 Protein/Creatinine (U) [Mass ratio] 0.13 mg/mg Normal <0.15 [facility] Comment on above: Order Comment: Van maier Type: BLOOD SPECIMEN Ordering Facility: [facility] Address: [address] [place] [address] Result Comment: Adul t Proteinuria Categories: <0.15 mg/mg is considered normal to mildly increased 0.15 - 0.50 mg/mg is considered moderately increased >0.50 mg/mg is considered severely increased KDIGO. (2013). KDIGO 2012 Clinical Practice Guideline for the Evaluation and Management of Chronic Kidney Disease. Official Journal of the International Society of Nephrology, 3(1), 1-150. Performed By: #### 2 4323-8, , 2776-04 #### [facility] CLIA [id number] [address] [place] [address] [place] Protein/Creatinine (U) [Mass ratio]on 05-23-2023 Creatinine (U) [Mass/Vol] 214.9 mg/dL Normal 20.0-300.0 [facility] Comment on above: Order Comment: Speci men Type: BLOOD SPECIMEN Ordering Facility: [facility] Address: [address] [place] [address] Performed By: #### 2 4323-8, 67668-5, 2777- #### [facility] CLIA [id number] [address] [place] [address] [place] Protein (U) [Mass/Vol] 27 mg/dL High 0-20 Cl [facility] Comment on above: Order Comment: Speci men Type: BLOOD SPECIMEN Ordering Facility: [facility] Address: [address] [place] [address] Performed By: #### 2 4323-8, 36111-0, 27710-23 #### [facility] CLIA [id number] [address] [place] [address] [place] TYPE AND SCREEN,30 DAYon ABO O Normal [facility] Comment on above: Order Comment: Speci men Type: BLOOD SPECIMENOrdering Facility: [facility] Address: [address] [place] [address] Performed By: #### T SCR30 ####[facility] BLOOD BANKCLIA [id number] [place] [address] [place] HISTORICAL AB SCR STATUS Negative Normal [facility] Comment on above: Order Comment: Speci men Type: BLOOD SPECIMENOrdering Facility: [facility] Address: [address] [place] [address] Performed By: #### T SCR30 ####[facility]LO[facility] BANKCLIA [id number] [place] [id number] [place] Rh Nom (Bld) Positive Normal [facility] Comment on above: Order Comment: Speci men Type: BLOOD SPECIMENOrdering Facility: [facility] Address: [address] [place], [place] [address] Performed By: #### T SCR30 ####[facility] BLOOD BANKCLIA [id number] [place] [address] [place] Urinalysis complete panel (U )on 05-23-2023 Bacteria LM.HPF (Urine sed) [#/Area] Negative Normal Negative [facility] Comment on above: Order Comment: Speci men Type: BLOOD SPECIMEN Ordering Facility: [facility] Address: [address] [place] [address] Performed By: #### 2 4323-8, 16952-7, 2776-04 #### [facility] CLIA [id number] [address] [place] [address] [place] Bilirubin Ql (U) Negative Normal Negative [facility] Comment on above: Order Comment: Speci men Type: BLOOD SPECIMEN Ordering Facility: [facility] Address: [address] [place] [address] Performed By: #### 2 432-8, , 2776-04 #### [facility] CLIA [id number] [address] [place] [address] [place] Clarity (Unsp spec) Clear Normal Clear [facility] Comment on above: Order Comment: Speci men Type: BLOOD SPECIMEN Ordering Facility: [facility] Address: [address] [place] [address] Performed By: #### 2 4323-8, , 2776-04 #### [facility] CLIA [id number] [address] [place] [address] [place] Color (U) Yellow Normal Yellow [facility] Comment on above: Order Comment: Speci men Type: BLOOD SPECIMEN Ordering Facility: [facility] Address: [address] [place] [address] Performed By: #### 2 4323-8, , 2776-04 #### [facility] CLIA [id number] [address] [place] [address] [place] Epithelial cells LM.HPF (Urine sed) [#/Area] None Seen Normal [facility] Comment on above: Order Comment: Speci men Type: BLOOD SPECIMEN Ordering Facility: [facility] Address: [address] [place] [address] Performed By: #### 2 4323-8, , 2776-04 #### [facility] CLIA [id number] [address] [place] [address] [place] Glucose Test strip (U) [Mass/Vol] Negative Normal Negative [facility] Comment on above: Order Comment: Speci men Type: BLOOD SPECIMEN Ordering Facility: [facility] Address: [address] [place] [address] Performed By: #### 2 4323-8, , 2776-04 #### [facility] CLIA [id number] [address] [place] [address] [place] Hemoglobin Ql (U) Negative Normal Negative [facility] Comment on above: Order Comment: Speci men Type: BLOOD SPECIMEN Ordering Facility: [facility] Address: [address] [place] [address] Performed By: #### 2 4323-8, , 2776-04 #### [facility] CLIA [id number] [address] [place] [address] [place] Hyaline casts (Urine sed) [#/Area] 0 /[LPF] Normal 0 /LPF [facility] Comment on above: Order Comment: Speci men Type: BLOOD SPECIMEN Ordering Facility: [facility] Address: [address] [place] [address] Performed By: #### 2 4323-8, , 2776-04 #### [facility] CLIA [id number] [address] [place] [address] [place] Ketones Ql (U) Trace Abnormal Negative [facility] Comment on above: Order Comment: Speci men Type: BLOOD SPECIMEN Ordering Facility: [facility] Address: [address] [place] [address] Performed By: #### 2 4323-8, 68134-4, 2776-04 #### [facility] CLIA [id number] [address] [place] [address] [place] Leukocyte esterase Test strip Ql (U) Negative Normal Negative [facility] Comment on above: Order Comment: Speci men Type: BLOOD SPECIMEN Ordering Facility: [facility] Address: [address] [place] [address] Performed By: #### 2 432-8, , 2776-04 #### [facility] CLIA [id number] [address] [place] [address] [place] Nitrite Ql (U) Negative Normal Negative [facility] Comment on above: Order Comment: Speci men Type: BLOOD SPECIMEN Ordering Facility: [facility] Address: [address] [place] [address] Performed By: #### 2 432-8, , 2776-04 #### [facility] CLIA [id number] [address] [place] [address] [place] pH (U) 6.0 [pH] Normal <8.5 [facility] Comment on above: Order Comment: Speci men Type: BLOOD SPECIMEN Ordering Facility: [facility] Address: [address] [place] [address] Performed By: #### 2 4323-8, , 2776-04 #### [facility] CLIA [id number] [address] [place] [address] [place] Protein (U) [Mass/Vol] Trace Abnormal Negative [facility] Comment on above: Order Comment: Speci men Type: BLOOD SPECIMEN Ordering Facility: [facility] Address: [address] [place] [address] Performed By: #### 2 4323-8, , 2776-04 #### [facility] CLIA [id number] [address] [place] [address] [place] RBC LM.HPF (Urine sed) [#/Area] 0-2 /HPF Normal 0-2 /HPF [facility] Comment on above: Order Comment: Speci men Type: BLOOD SPECIMEN Ordering Facility: [facility] Address: [address] [place] [address] Performed By: #### 2 4323-8, , 2776-04 #### [facility] CLIA [id number] [address] [place] [address] [place] Specific gravity (U) [Rel density] 1.021 Normal 1.005-1.030 [facility] Comment on above: Order Comment: Speci men Type: BLOOD SPECIMEN Ordering Facility: [facility] Address: [address] [place] [address] Performed By: #### 2 4323-8, , 2776-04 #### [facility] CLIA [id number] [address] [place] [address] [place] Urobilinogen Ql (U) 1.0 EU/dL Normal 0.2-1.0 EU/dL [facility] Comment on above: Order Comment: Speci men Type: BLOOD SPECIMEN Ordering Facility: [facility] Address: [address] [place] [address] Performed By: #### 2 4323-8, , 2776-04 #### [facility] CLIA [id number] [address] [place] [address] [place] WBC LM.HPF (Urine sed) [#/Area] 0-5 /HPF Normal 0-5 /HPF [facility] Comment on above: Order Comment: Speci men Type: BLOOD SPECIMEN Ordering Facility: [facility] Address: [address] [place] [address] Performed By: #### 2 4323-8, 30813-3, 2776-04 #### [facility] CLIA [id number] [address] [place] [id number] [facility] Elyssa 05-20-2023 CNPN Telephone (GENBMI) SHERMAN MARIE ([id number]) 1980 M Date Time Provider Department 05/20/23 DOMINICK MONGE GENI During your visit today, we recorded the following information about you: Dominick Monge, RN 05/20/2023 5:31 PM Signed BMI SPECIALTY CARE COORDINATION SURGERY PRE-OP EDUCATION NOTE AMBULATORY PATIENT EDUCATION NOTE TOPIC: SURVIVAL SKILLS: Complication Prevention Diet Pain Management Safety Precautions Wound Care LIFE STYLE CHANGES: Diet and Safety Precautions HEALTH PROMOTION: Diet Exercise Follow up management Self management READINESS TO LEARN COGNITIVE ABILITY: Alert and oriented MOTIVATION TO LEARN: Eager FAMILY SUPPORT: High - Very involved in pt care INSTRUCTION PROVIDED TO: Patient PATIENT LEARNS BEST BY: Individual Instruction FACTORS AFFECTING LEARNING: None PHYSICAL LIMITATIONS AFFECTING LEARNING: None LEARNING RESPONSE DIAGNOSIS: Morbid Obesity METHOD OF INSTRUCTION: Individual instruction PATIENT / FAMILY RESPONSE: Verbalizes understanding of: INFECTION MANAGEMENT-Signs and symptoms of an infection and importance of contacting the physician PAIN MANAGEMENT-Effective strategies to manage pain in addition to pain medication POST-OPERATIVE INSTRUCTIONS-Correct actions to take to reduce postoperative complications PRE-OPERATIVE INSTRUCTIONS-Correct action to take to follow pre-operative instructions FOLLOW-UP PLAN: Patient instructed to call with any further issues SUPPLEMENTAL MATERIAL: Your Surgical Guide REFERRAL (RECOMMENDATION): None Surgery Pre-Op Education Note in Nurse Visit Education video modules viewed by the patient: Yes Postop prescriptions provided to the patient: No Prescriptions will be sent electronically to pharmacy at time of pre-op appointment with surgeon. Postop Surgeon Visit scheduled: Yes On-Call AND Clinic Phone Number given to the Patient: Yes Pre surgery checklist reviewed: Yes Patient Instructions for the Liquid Diet: Day Before Surgery - Liquid Diet Instruction Review 1. Last Protein shake should be before 6 pm. 2. It is important that you stay hydrated - 64 ounces of fluid per day. 3. Drink a 28-32 ounce bottle of a regular (not sugar free) sport drink (Gatorade, Powerade, etc.) the night prior to surgery. If the sport drinks aren?t tolerable, may substitute with no sugar added - no pulp juice - apple, cranberry, lemonade, white grape or orange. Day of Surgery Clear Liquid Diet Drink 12-20 ounces of a regular sport drink (or juice as above) stop liquids 2 hours before scheduled arrival time. Other Instructions Reviewed: Skin Preparation: Skin cleanse with antibacterial soap, Aruna, wound care, vitamin AND nutrients, activity restrictions post op, discharge instructions AND surgical guide, incentive spirometry;diet progression-irasema phase I AND II AND 2wk liquid diet prior to surgery, activity level AND pt responsibility during hospitalization. Sleep Apnea: Patient has sleep apnea? Yes. Reviewed with patient that it is important to bring their machine, mask and tubing to the hospital on the day of surgery. Patient instructed that they should wear their C-pap when arriving in room as they will have anesthesia on board that will make them sleep periodically throughout the remainder of the day of surgery. Following the first day, patient instructed that they should wear the C-pap in the hospital any time they are napping or sleeping. Explanation of the dangerous drops in oxygen level that can occur if C-pap is not applied day of surgery or subsequent days when napping or sleeping. Patient understands they are not to refuse to wear the treatment even if they feel it is uncomfortable as wearing C-pap is essential for their safety. Patient agrees to bring C-pap and wear it upon arrival from recovery room and when napping or sleeping. Yes. Do not take pain medication three hours before bedtime as it may cause breathing difficulty. If you are having pain at bedtime you may take two Extra Strength Tylenol. Bariatric Search Analyst Reminder discussion Yes Dominick Monge RN Allergies As of Date: 05/20/2023 Noted Allergy Reaction LACTOSE 11/26/2022 14 - Other: See Comments SULFA (SULFONAMIDE ANTIBIOTICS) 11/26/2022 9 - Itching VANCOMYCIN 11/26/2022 9 - Itching Date Reviewed: 05/12/2023 Reviewed by: Rupesh Nova RD - Fully Assessed Reason for Visit: Preparations For Surgery [898] Prescriptions as of 05/20/2023 - cholecalciferol, Vitamin D3, (VITAMIN D3) 1,250 mcg (50,000 unit) cap capsule Take 1 capsule by mouth one time a week. Afterwards take 2000 units over the counter daily - levothyroxine (SYNTHROID) 125 mcg tablet - torsemide (DEMADEX) 100 mg tablet - spironolactone (ALDACTONE) 25 mg tablet - famotidine (PEPCID) 40 mg tablet - traMADol (ULTRAM) 50 mg tablet Problem List As Of D (more content not included)... Normal [facility] 05-18-2023 CNPN Telephone (Lakoo) SHERMAN MARIE ([id number]) 1980 M Date Time Provider Department 05/18/23 MICHAEL ENCISO During your visit today, we recorded the following information about you: McgrathKirby 05/18/2023 4:38 PM Signed Reason for call: Patient has Pre-op questions they would like to discuss. Other: Contact: Dominick Monge RN 05/18/2023 5:01 PM Signed This RN confirmed patient completed lab draw close to his home [facility] 8:55 a.m. This RN placed call p [phone] spoke with Kanwal Allergies As of Date: 05/18/2023 Noted Allergy Reaction LACTOSE 11/26/2022 14 - Other: See Comments SULFA (SULFONAMIDE ANTIBIOTICS) 11/26/2022 9 - Itching VANCOMYCIN 11/26/2022 9 - Itching Date Reviewed: 05/12/2023 Reviewed by: Rupesh Nova RD - Fully Assessed Reason for Visit: Patient Question [2997] Prescriptions as of 05/18/2023 - cholecalciferol, Vitamin D3, (VITAMIN D3) 1,250 mcg (50,000 unit) cap capsule Take 1 capsule by mouth one time a week. Afterwards take 2000 units over the counter daily - levothyroxine (SYNTHROID) 125 mcg tablet - torsemide (DEMADEX) 100 mg tablet - spironolactone (ALDACTONE) 25 mg tablet - famotidine (PEPCID) 40 mg tablet - traMADol (ULTRAM) 50 mg tablet Problem List As Of Date 05/18/2023 Noted Resolved Morbid obesity (HCC) [E66.01] 10/25/2022 Lymphedema [I89.0] 10/25/2022 Limited mobility [Z74.09] 10/25/2022 BMI 70 and over, adult (HCC) [Z68.45] 11/26/2022 Gastroesophageal reflux disease without esophag*11/26/2022 ISI (obstructive sleep apnea) [G47.33] 11/26/2022 Acquired hypothyroidism [E03.9] 11/26/2022 Elevated serum creatinine [R79.89] 04/13/2023 Encounter Status:Closed by DOMINICK MONGE on 05/18/23 [facility] 05-17-2023 [facility]GEN[facility] SHERMAN MARIE ([id number]) 1980 M Date Time Provider Department 05/17/23 DOMINICK MONGE GENBMI During your visit today, we recorded the following information about you: Dominick Monge RN 05/17/2023 11:03 AM Signed Returned call to patient preparing for LSG scheduled 05/24/23 Dr. Enciso. Patient began partial liquid diet 05/03/23 with plan to complete lab work to check serum Cr 05/13/23. Patent does not drive, depends on transportation service; states severe weather prevented him from presenting to lab. Today patient presented to lab and found on door of lab: closed due to weather. Patient will present to lab 05/18/23 and follow up with RN after completes lab draw. Allergies As of Date: 05/17/2023 Noted Allergy Reaction LACTOSE 11/26/2022 14 - Other: See Comments SULFA (SULFONAMIDE ANTIBIOTICS) 11/26/2022 9 - Itching VANCOMYCIN 11/26/2022 9 - Itching Date Reviewed: 05/12/2023 Reviewed by: Rupesh Nova RD - Fully Assessed Reason for Visit: BMI Follow Up [1566] Prescriptions as of 05/17/2023 - cholecalciferol, Vitamin D3, (VITAMIN D3) 1,250 mcg (50,000 unit) cap capsule Take 1 capsule by mouth one time a week. Afterwards take 2000 units over the counter daily - levothyroxine (SYNTHROID) 125 mcg tablet - torsemide (DEMADEX) 100 mg tablet - spironolactone (ALDACTONE) 25 mg tablet - famotidine (PEPCID) 40 mg tablet - traMADol (ULTRAM) 50 mg tablet Problem List As Of Date 05/17/2023 Noted Resolved Morbid obesity (HCC) [E66.01] 10/25/2022 Lymphedema [I89.0] 10/25/2022 Limited mobility [Z74.09] 10/25/2022 BMI 70 and over, adult (HCC) [Z68.45] 11/26/2022 Gastroesophageal reflux disease without esophag*11/26/2022 ISI (obstructive sleep apnea) [G47.33] 11/26/2022 Acquired hypothyroidism [E03.9] 11/26/2022 Elevated serum creatinine [R79.89] 04/13/2023 Encounter Status:[facility]GENBMI[facility] SHERMAN MARIE ([id number]) 1980 M Date Time Provider Department 05/16/23 ARNDOMINICK DEL CASTILLOReynaldo During your visit today, we recorded the following information about you: Dominick Monge, RN 05/16/2023 3:23 PM Signed Patient delayed completing lab work ordered by Dr. Gil to check serum Cr. Patient states he did not have a ride and could not secure an appointment at lab close to his home. This RN called [facility] p [phone] fax [phone] to confirm walk in clinic hours M 730-7:00 p.m., T 8-5, W 8-5. Phoned patient to confirm he has secured a ride 05/17/23 with transportation service: [employer]. States he has an appointment with his medical case manager at his home today 4:[address] Patient [address] not [address] and did not have a way to travel to site this evening. Will follow and provide update to Ruddy Allergies As of Date: 05/16/2023 Noted Allergy Reaction LACTOSE 11/26/2022 14 - Other: See Comments SULFA (SULFONAMIDE ANTIBIOTICS) 11/26/2022 9 - Itching VANCOMYCIN 11/26/2022 9 - Itching Date Reviewed: 05/12/2023 Reviewed by: Rupesh Nova RD - Fully Assessed Reason for Visit: BMI Follow Up [1566] Prescriptions as of 05/16/2023 - cholecalciferol, Vitamin D3, (VITAMIN D3) 1,250 mcg (50,000 unit) cap capsule Take 1 capsule by mouth one time a week. Afterwards take 2000 units over the counter daily - levothyroxine (SYNTHROID) 125 mcg tablet - torsemide (DEMADEX) 100 mg tablet - spironolactone (ALDACTONE) 25 mg tablet - famotidine (PEPCID) 40 mg tablet - traMADol (ULTRAM) 50 mg tablet Problem List As Of Date 05/16/2023 Noted Resolved Morbid obesity (HCC) [E66.01] 10/25/2022 Lymphedema [I89.0] 10/25/2022 Limited mobility [Z74.09] 10/25/2022 BMI 70 and over, adult (HCC) [Z68.45] 11/26/2022 Gastroesophageal reflux disease without esophag*11/26/2022 ISI (obstructive sleep apnea) [G47.33] 11/26/2022 Acquired hypothyroidism [E03.9] 11/26/2022 Elevated serum creatinine [R79.89] 04/13/2023 Encounter Status:Closed by DOMINICK MONGE on 05/16/23 [facility] 05-13-2023 CNPN Telephone (GENBMI) SHERMAN MARIE ([id number]) 1980 M Date Time Provider Department 05/13/23 DOMINICK MONGE GENBMI During your visit today, we recorded the following information about you: Dominick Monge, RN 05/13/2023 2:00 PM Signed Follow up call placed to patient to confirm results of Cr lab test completed, no answer phone; left voice message providing RN call back phone number. Allergies As of Date: 05/13/2023 Noted Allergy Reaction LACTOSE 11/26/2022 14 - Other: See Comments SULFA (SULFONAMIDE ANTIBIOTICS) 11/26/2022 9 - Itching VANCOMYCIN 11/26/2022 9 - Itching Date Reviewed: 05/12/2023 Reviewed by: Rupesh Nova RD - Fully Assessed Reason for Visit: BMI Follow Up [1566] Prescriptions as of 05/13/2023 - cholecalciferol, Vitamin D3, (VITAMIN D3) 1,250 mcg (50,000 unit) cap capsule Take 1 capsule by mouth one time a week. Afterwards take 2000 units over the counter daily - levothyroxine (SYNTHROID) 125 mcg tablet - torsemide (DEMADEX) 100 mg tablet - spironolactone (ALDACTONE) 25 mg tablet - famotidine (PEPCID) 40 mg tablet - traMADol (ULTRAM) 50 mg tablet Problem List As Of Date 05/13/2023 Noted Resolved Morbid obesity (HCC) [E66.01] 10/25/2022 Lymphedema [I89.0] 10/25/2022 Limited mobility [Z74.09] 10/25/2022 BMI 70 and over, adult (HCC) [Z68.45] 11/26/2022 Gastroesophageal reflux disease without esophag*11/26/2022 ISI (obstructive sleep apnea) [G47.33] 11/26/2022 Acquired hypothyroidism [E03.9] 11/26/2022 Elevated serum creatinine [R79.89] 04/13/2023 Encounter Status:Closed by DOMINICK MONGE on 05/13/23 [facility] 05-10-2023 CNPN Telephone (GENBMI) SHERMAN MARIE ([id number]) 1980 M Date Time Provider Department 05/10/23 DOMINICK MONGE GENI During your visit today, we recorded the following information about you: Dominick Monge, RN 05/10/2023 5:18 PM Signed Open in error Allergies As of Date: 05/10/2023 Noted Allergy Reaction LACTOSE 11/26/2022 14 - Other: See Comments SULFA (SULFONAMIDE ANTIBIOTICS) 11/26/2022 9 - Itching VANCOMYCIN 11/26/2022 9 - Itching Date Reviewed: 04/13/2023 Reviewed by: Diamond Shelley MA - Fully Assessed Prescriptions as of 05/10/2023 - cholecalciferol, Vitamin D3, (VITAMIN D3) 1,250 mcg (50,000 unit) cap capsule Take 1 capsule by mouth one time a week. Afterwards take 2000 units over the counter daily - levothyroxine (SYNTHROID) 125 mcg tablet - torsemide (DEMADEX) 100 mg tablet - spironolactone (ALDACTONE) 25 mg tablet - famotidine (PEPCID) 40 mg tablet - traMADol (ULTRAM) 50 mg tablet Problem List As Of Date 05/10/2023 Noted Resolved Morbid obesity (HCC) [E66.01] 10/25/2022 Lymphedema [I89.0] 10/25/2022 Limited mobility [Z74.09] 10/25/2022 BMI 70 and over, adult (HCC) [Z68.45] 11/26/2022 Gastroesophageal reflux disease without esophag*11/26/2022 ISI (obstructive sleep apnea) [G47.33] 11/26/2022 Acquired hypothyroidism [E03.9] 11/26/2022 Elevated serum creatinine [R79.89] 04/13/2023 Encounter Status:Closed by DOMINICK MONGE [facility]10/23 [facility] ([id number]) 1980 M Date Time Provider Department 05/10/23 DOMINICK MONGE GENBMI During your visit today, we recorded the following information about you: Dominick Monge, RN 05/10/2023 5:15 PM Signed Patient lives 2 hours away from [facility], asking surgeon for consideration to admit to hospital one day before surgery to complete pre op testing in preparation for sleeve gastrectomy 05-24-23. Patient lives alone, does not drive; depends on transportation service. States he has lymphadema and notes difficulty ambulating long distances. Confirmed pre op partial liquid diet (began 05/03/23) and plan to complete lab work to check serum Cr 05/13/23. Advised would sent message to MD. Allergies As of Date: 05/10/2023 Noted Allergy Reaction LACTOSE 11/26/2022 14 - Other: See Comments SULFA (SULFONAMIDE ANTIBIOTICS) 11/26/2022 9 - Itching VANCOMYCIN 11/26/2022 9 - Itching Date Reviewed: 04/13/2023 Reviewed by: Diamond Shelley MA - Fully Assessed Reason for Visit: MyChart follow up [Other] Prescriptions as of 05/17/2023 - cholecalciferol, Vitamin D3, (VITAMIN D3) 1,250 mcg (50,000 unit) cap capsule Take 1 capsule by mouth one time a week. Afterwards take 2000 units over the counter daily - levothyroxine (SYNTHROID) 125 mcg tablet - torsemide (DEMADEX) 100 mg tablet - spironolactone (ALDACTONE) 25 mg tablet - famotidine (PEPCID) 40 mg tablet - traMADol (ULTRAM) 50 mg tablet Problem List As Of Date 05/10/2023 Noted Resolved Morbid obesity (HCC) [E66.01] 10/25/2022 Lymphedema [I89.0] 10/25/2022 Limited mobility [Z74.09] 10/25/2022 BMI 70 and over, adult (HCC) [Z68.45] 11/26/2022 Gastroesophageal reflux disease without esophag*11/26/2022 ISI (obstructive sleep apnea) [G47.33] 11/26/2022 Acquired hypothyroidism [E03.9] 11/26/2022 Elevated serum creatinine [R79.89] 04/13/2023 Encounter Status:Closed by DOMINICK MONGE [facility]17/23 [facility] (GENBMI[facility] SHERMAN MARIE ([id number]) 1980 M Date Time Provider Department 05/03/23 DOMINICK MONGE GENBMI During your visit today, we recorded the following information about you: Dominick Monge RN 05/03/2023 11:53 AM Signed [facility] COORDINATION SURGERY APPROVAL CALL Received e-mail confirmation of insurance approval for bariatric surgery.Pre-operative call placed to the patient, this RN spoke with patient and agreed upon a surgery date of May 24 2023. Surgical episode request sent to [facility] surgery scheduling. Patient understands that the surgery type is Sleeve Gastrectomy as approved by insurance. Creatinine level 2.[address] Enciso directive patient to begin partial liquid diet 05/03/23 and complete lab work to check serum Cr 05/13/23 Patient instructed to start pre-op 800 calorie partial liquid diet OWYN (allergic to dairy) daily beginning 3 weeks prior to surgery. - Stop all ASA and NSAID products, [place] 3 fish oil, herbal products such as ginko etc. Stop vitamins EXCEPT B COMPLEX- take this up to the day before surgery - Medication List reviewed and patient will contact prescribing physician regarding use of diuretics taking torsemide spironolactone- Talk with your prescribing MD- stop when doing the unaltered LD because of ketosis while on pre-operative diet. - Patient denies use of N/A. Talk with your prescribing MD if you take the following - should be monitored closely during the preoperative liquid diet with most held at the start of the diet given the . ALL of these medications should AT LEAST be held the day prior to surgery. Sleep apnea requiring treatment? Yes, Patient tolerating C-PAP and advised to bring C-PAP mask and tubing DOS. If you have been diagnosed with moderate/severe sleep apnea you must wear CPAP/BIPAP a minimum of 4 hours nightly 2 weeks before surgery,. It is very important to treat ISI pre op as well as continuing to use the CPAP post operatively- Do not stop using the machine without prior testing. Patient will require FMLA forms to be completed? No. - Aruna video assigned. 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 - All questions and concerns addressed and patient verbalized understanding. - Patient case reviewed. All nutrition appointments completed, psychology clearance obtained, surgeon visit and procedure type verified, medical optimization obtained and all testing complete. Does patient have Con ABO? No, patient does not have Con ABO and it has been ordered. Dominick Monge RN Allergies As of Date: 05/03/2023 Noted Allergy Reaction LACTOSE 11/26/2022 14 - Other: See Comments SULFA (SULFONAMIDE ANTIBIOTICS) 11/26/2022 9 - Itching VANCOMYCIN 11/26/2022 9 - Itching Date Reviewed: 04/13/2023 Reviewed by: Diamond Shelley MA - Fully Assessed Reason for Visit: Schedule Surgery [1330] Prescriptions as of 05/03/2023 - cholecalciferol, Vitamin D3, (VITAMIN D3) 1,250 mcg (50,000 unit) cap capsule Take 1 capsule by mouth one time a week. Afterwards take 2000 units over the counter daily - levothyroxine (SYNTHROID) 125 mcg tablet - torsemide (DEMADEX) 100 mg tablet - spironolactone (ALDACTONE) 25 mg tablet - famotidine (PEPCID) 40 mg tablet - traMADol (ULTRAM) 50 mg tablet Problem List As Of Date 05/03/2023 Noted Resolved Morbid obesity (HCC) [E66.01] 10/25/2022 Lymphedema [I89.0] 10/25/2022 Limited mobility [Z74.09] 10/25/2022 BMI 70 and over, adult (HCC) [Z68.45] 11/26/2022 Gastroesophageal reflux disease without esophag*11/26/2022 ISI (obstructive sleep apnea) [G47.33] 11/26/2022 Acquired hypothyroidism [E03.9] 11/26/2022 Elevated serum creatinine [R79.89] 04/13/2023 Encounter Status:Closed by DOMINICK MONGE on 05/03/23 [facility] CNCOon 04-26-2023 CNCO Letter Text [facility] Elyssa 04-21-2023 [facility] Telephone (MIDCOV) SHERMAN MARIE ([id number]) 1980 M Date Time Provider Department 04/21/23 DAYDAY JEONG [facility] During your visit today, we recorded the following information about you: Dayday Jeong MD 04/21/2023 5:09 PM Signed Called patient on the phone discussed all test results in details. Potassium has already been prescribed by his primary care. He is EGFR measured with the help of Cystatin C is 28 mm/min; so I guess he is at stage IV. Will replace vitamin D. Awaiting kidney ultrasound results. Opportunities to ask questions were provided and all questions were answered. Allergies As of Date: 04/21/2023 Noted Allergy Reaction LACTOSE 11/26/2022 14 - Other: See Comments SULFA (SULFONAMIDE ANTIBIOTICS) 11/26/2022 9 - Itching VANCOMYCIN 11/26/2022 9 - Itching Date Reviewed: 04/13/2023 Reviewed by: Diamond Shelley MA - Fully Assessed Order(s):cholecalcifer ol, Vitamin D3, (VITAMIN D3) 1,250 mcg (50,000 unit) cap capsuleTake 1 capsule by mouth one time a week. Afterwards take 2000 units over the counter dailyDisp: 8 capsuleRfl: 0 Prescriptions as of 04/21/2023 - cholecalciferol, Vitamin D3, (VITAMIN D3) 1,250 mcg (50,000 unit) cap capsule Take 1 capsule by mouth one time a week. Afterwards take 2000 units over the counter daily - levothyroxine (SYNTHROID) 125 mcg tablet - torsemide (DEMADEX) 100 mg tablet - spironolactone (ALDACTONE) 25 mg tablet - famotidine (PEPCID) 40 mg tablet - traMADol (ULTRAM) 50 mg tablet Problem List As Of Date 04/21/2023 Noted Resolved Morbid obesity (HCC) [E66.01] 10/25/2022 Lymphedema [I89.0] 10/25/2022 Limited mobility [Z74.09] 10/25/2022 BMI 70 and over, adult (HCC) [Z68.45] 11/26/2022 Gastroesophageal reflux disease without esophag*11/26/2022 ISI (obstructive sleep apnea) [G47.33] 11/26/2022 Acquired hypothyroidism [E03.9] 11/26/2022 Elevated serum creatinine [R79.89] 04/13/2023 Prescriptions ordered this encounter Disp Refills Start End CHOLECALCIFEROL (VITAMIN D3) 1,250 M* 8 ca* 0 04/21/2023 Route: ORAL Sig: Take 1 capsule by mouth one time a week. Afterwards take 2000 units over the counter daily Encounter Status:Closed by DAYDAY JEONG on 04/21/23 [facility] 25-hydroxyvitamin D3 [Mass/Vol] 18.2 ng/mL Low 31.0-80.0 [facility] Comment on above: Order Comment: Speci men Type: BLOOD SPECIMEN Ordering Facility: [facility] Address: [address] [place] [address] Result Comment: Clas sification of 25 OH Vitamin D status: Deficiency/Insufficiency: < or = 30 ng/ml. Sufficiency/Optimal Levels: 31-80 ng/mL Toxicity: > 100 ng/mL. Test performed by chemiluminescent immunoassay. Performed By: #### 2 4323-8, 91857-1, 2777-1 #### [facility] CLIA [id number] [address] [place] [address] [place] ALBUMIN/CREAT RATIO RND URon 04-19-2023 Albumin DL <= 20 mg/L (U) [Mass/Vol] mg/dL Normal [facility] Comment on above: Order Comment: Speci men Type: URINE SPECIMENOrdering Facility: [facility] Address: [address] [place] [address] Performed By: #### U ACR ####[facility] [id number] [place] [address] [place] Albumin/Creatinine (U) [Mass ratio] <8 Normal <30 [facility] Comment on above: Order Comment: Speci men Type: URINE SPECIMENOrdering Facility: [facility] Address: [address] [place] [address] Result Comment: Adul t Male and Female Nephrotic Criteria: <30 mg/g is considered normal to mildly increased 30-300 mg/g is considered moderately increased >300 mg/g is considered severely increased KDIGO. (2013). KDIGO 2012 Clinical Practice Guideline for the Evaluation and Management of Chronic Kidney Disease. Official Journal of the International Society of Nephrology, 3(1), 1-150. Performed By: #### U ACR ####[facility] [id number] [place] [address] [place] Creatinine (U) [Mass/Vol] 156.6 mg/dL Normal 20.0-300.0 [facility] Comment on above: Order Comment: Speci men Type: URINE SPECIMENOrdering Facility: [facility] Address: [address] [place] [address] Performed By: #### U ACR ####[facility] [id number] [place] [address] [place] CBC panel Auto (Bld)on 04-19 Erythrocyte distribution width (RBC) [Ratio] 16.0 % High 11.5-15.0 [facility] Comment on above: Order Comment: Speci men Type: BLOOD SPECIMEN Ordering Facility: [facility] Address: [facility] [place] [address] Performed By: #### 2 4323-8, , 2776-04 #### [facility] CLIA [id number] [address] [place] [address] [place] Hematocrit (Bld) [Volume fraction] 36.9 % Low 39.0-51.0 [facility] Comment on above: Order Comment: Speci men Type: BLOOD SPECIMEN Ordering Facility: [facility] Address: [address] [place] [address] Performed By: #### 2 4323-8, , 2776-04 #### [facility] CLIA [id number] [address] [place] [address] [place] Hemoglobin (Bld) [Mass/Vol] 11.1 g/dL Low 13.0-17.0 [facility] Comment on above: Order Comment: Speci men Type: BLOOD SPECIMEN Ordering Facility: [facility] Address: [address] [place] [address] Performed By: #### 2 4323-8, , 2776-04 #### [facility] CLIA [id number] [address] [place] [address] [place] MCH (RBC) [Entitic mass] 28.9 pg Normal 26.0-34.0 [facility] Comment on above: Order Comment: Speci men Type: BLOOD SPECIMEN Ordering Facility: [facility] Address: [address] [place] [address] Performed By: #### 2 4323-8, , 2776-04 #### [facility] CLIA [id number] [address] [place] [address] [place] MCHC (RBC) [Mass/Vol] 30.1 g/dL Low 30.5-36.0 [facility] Comment on above: Order Comment: Speci men Type: BLOOD SPECIMEN Ordering Facility: [facility] Address: [address] [place] [address] Performed By: #### 2 4323-8, , 2776-04 #### [facility] CLIA [id number] [address] [place] [address] [place] MCV (RBC) [Entitic vol] 96.1 fL Normal 80.0-100.0 [facility] Comment on above: Order Comment: Speci men Type: BLOOD SPECIMEN Ordering Facility: [facility] Address: [address] [place] [address] Performed By: #### 2 4323-8, , 2776-04 #### [facility] CLIA [id number] [address] [place] [address] [place] Nucleated RBC (Bld) [#/Vol] 0.02 10*3/uL High <0.01 [facility] Comment on above: Order Comment: Speci men Type: BLOOD SPECIMEN Ordering Facility: [facility] Address: [address] [place] [address] Performed By: #### 2 4323-8, , 2776-04 #### [facility] CLIA [id number] [address] [place] [address] [place] Platelet mean volume (Bld) [Entitic vol] 10.4 fL Normal 9.0-12.7 [facility] Comment on above: Order Comment: Speci men Type: BLOOD SPECIMEN Ordering Facility: [facility] Address: [address] [place] [address] Performed By: #### 2 4323-8, 03306-7, 2776- #### [facility] CLIA [id number] [address] [place] [address] [place] Platelets (Bld) [#/Vol] 173 10*3/uL Normal 150-400 [facility] Comment on above: Order Comment: Speci men Type: BLOOD SPECIMEN Ordering Facility: [facility] Address: [address] [place] [address] Performed By: #### 2 4323-8, , 2776- #### [facility] CLIA [id number] [address] [place] [address] [place] RBC (Bld) [#/Vol] 3.84 10*6/uL Low 4.20-6.00 [facility] Comment on above: Order Comment: Speci men Type: BLOOD SPECIMEN Ordering Facility: [facility] Address: [address] [place] [address] Performed By: #### 2 4323-8, , 2776-04 #### [facility] CLIA [id number] [address] [place] [address] [place] WBC (Bld) [#/Vol] 6.69 10*3/uL Normal 3.70-11.00 [facility] Comment on above: Order Comment: Speci men Type: BLOOD SPECIMEN Ordering Facility: [facility] Address: [address] [place] [address] Performed By: #### 2 4323-8, 47216-3, 2777- #### [facility] CLIA [id number] [address] [place] [address] [place] CYSTATIN Con 04-19-2023 Cystatin C [Mass/Vol] 2.24 mg/L High 0.61-0.95 [facility] Comment on above: Order Comment: Van maier Type: BLOOD SPECIMEN Ordering Facility: [facility] Address: [address] [place] [address] Performed By: #### 2 4323-8, , 2776-04 #### [facility] CLIA [id number] [address] [place] [address] [place] CYSTATIN C EGFR 28 mL/min/1.73m??? Low >=60 C [facility] Comment on above: Order Comment: Van maier Type: BLOOD SPECIMEN Ordering Facility: [facility] Address: [address] [place] [address] Result Comment: Hiral mated Glomerular Filtration Rate (eGFR) is calculated using the 2012 CKD-EPI cystatin C equation. This equation utilizes serum cystatin C, sex, and age as parameters. The cystatin C assay has traceable calibration to the ERM-DA471/IF reference material. Refer to KDIGO guidelines for clinical interpretation. In patients with unstable renal function, e.g. those with acute kidney injury, the eGFR may not accurately reflect actual GFR. Performed By: #### 2 4323-8, , 2776-04 #### [facility] CLIA [id number] [address] [place] [address] [place] Magnesium SerPl-mCncon 04-19 Magnesium [Mass/Vol] 2.3 mg/dL Normal 1.7-2.3 [facility] Comment on above: Order Comment: Van maier Type: BLOOD SPECIMEN Ordering Facility: [facility] Address: [address] [place] [address] Performed By: #### 2 4323-8, , 2776-04 #### [facility] CLIA [id number] [address] [place] [address] [place] PTH-Intact SerPl-mCncon 12-2 Parathyrin.intact [Mass/Vol] 133 pg/mL High 15-65 [facility] Comment on above: Order Comment: Speci men Type: BLOOD SPECIMEN Ordering Facility: [facility] Address: [address] [place] [address] Performed By: #### 2 4323-8, , 2776-04 #### [facility] CLIA [id number] [address] [place] [address] [place] Prot/Creat Uron 04-19-2023 Protein/Creatinine (U) [Mass ratio] 0.10 mg/mg Normal <0.15 [facility] Comment on above: Order Comment: Speci men Type: BLOOD SPECIMEN Ordering Facility: [facility] Address: [address] [place] [address] Result Comment: Adul t Proteinuria Categories: <0.15 mg/mg is considered normal to mildly increased 0.15 - 0.50 mg/mg is considered moderately increased >0.50 mg/mg is considered severely increased KDIGO. (2013). KDIGO 2012 Clinical Practice Guideline for the Evaluation and Management of Chronic Kidney Disease. Official Journal of the International Society of Nephrology, 3(1), 1-150. Performed By: #### 2 4323-8, , 2776-04 #### [facility] CLIA [id number] [address] [place] [address] [place] Protein/Creatinine (U) [Mass ratio]on 04-19-2023 Creatinine (U) [Mass/Vol] 153.3 mg/dL Normal 20.0-300.0 [facility] Comment on above: Order Comment: Speci men Type: BLOOD SPECIMEN Ordering Facility: [facility] Address: [address] [place] [address] Performed By: #### 2 4323-8, , 2776-04 #### [facility] CLIA [id number] [address] [place] [address] [place] Protein (U) [Mass/Vol] 15 mg/dL Normal 0-20 [facility] Comment on above: Order Comment: Speci men Type: BLOOD SPECIMEN Ordering Facility: [facility] Address: [address] [place] [address] Performed By: #### 2 4323-8, , 2776-04 #### [facility] CLIA [id number] [address] [place], [place] [id number] [place] Renal function 2000 panelon 04-19-2023 Albumin [Mass/Vol] 3.8 g/dL Low 3.9-4.9 [facility] Comment on above: Order Comment: Speci men Type: BLOOD SPECIMEN Ordering Facility: [facility] Address: [address] [place] [address] Performed By: #### 2 4323-8, , 2776-04 #### [facility] CLIA [id number] [address] [place] [address] [place] Anion gap [Moles/Vol] 11 mmol/L Normal 9-18 [facility] Comment on above: Order Comment: Speci men Type: BLOOD SPECIMEN Ordering Facility: [facility] Address: [address] [place] [address] Performed By: #### 2 4323-8, , 2776-04 #### [facility] CLIA [id number] [address] [place] [address] [place] Calcium [Mass/Vol] 9.1 mg/dL Normal 8.5-10.2 [facility] Comment on above: Order Comment: Speci men Type: BLOOD SPECIMEN Ordering Facility: [facility] Address: [address] [place], [place] [address] Performed By: #### 2 4323-8, , 2776-04 #### [facility] CLIA [id number] [address] [place], [place] [address] [place] Chloride [Moles/Vol] 99 mmol/L Normal 97-105 [facility] Comment on above: Order Comment: Speci men Type: BLOOD SPECIMEN Ordering Facility: [facility] Address: [address] [place] [address] Performed By: #### 2 4323-8, , 2776-04 #### [facility] CLIA [id number] [address] [place] [address] [place] CO2 [Moles/Vol] 34 mmol/L High 22-30 [facility] Comment on above: Order Comment: Speci men Type: BLOOD SPECIMEN Ordering Facility: [facility] Address: [address] [place] [address] Performed By: #### 2 4323-8, , 2776-04 #### [facility] CLIA [id number] [address] [place] [address] [place] Creatinine [Mass/Vol] 1.68 mg/dL High 0.73-1.22 [facility] Comment on above: Order Comment: Speci men Type: BLOOD SPECIMEN Ordering Facility: [facility] Address: [address] [place] [address] Performed By: #### 2 4323-8, , 2776-04 #### [facility] CLIA [id number] [address] [place] [address] [place] Creatinine and Glomerular filtration rate.predicted panel (S/P/Bld) 51 mL/min/1.73m??? Low >=60 [facility] Comment on above: Order Comment: Speci men Type: BLOOD SPECIMEN Ordering Facility: [facility] Address: [address] [place] [address] Result Comment: Hiral mated Glomerular Filtration Rate (eGFR) is calculated using the 2020 CKD-EPI creatinine equation. This equation utilizes serum creatinine, sex, and age as parameters. The creatinine assay has traceable calibration to isotope dilution-mass spectrometry. Refer to KDIGO guidelines for clinical interpretation. In patients with unstable renal function, e.g. those with acute kidney injury, the eGFR may not accurately reflect actual GFR. Performed By: #### 2 4323-8, 26214-7, 2776-04 #### [facility] CLIA [id number] [address] [place] [address] [place] Glucose [Mass/Vol] 107 mg/dL High 74-99 [facility] Comment on above: Order Comment: Van maier Type: BLOOD SPECIMEN Ordering Facility: [facility] Address: [address] [place] [address] Result Comment: The [place] Diabetes Association (ADA) provides guidance for cutoff values for fasting glucose and random glucose. The ADA defines fasting as no caloric intake for at least 8 hours. Fasting plasma glucose results between 100 to 125 mg/dL indicate increased risk for diabetes (prediabetes). Fasting plasma glucose results greater than or equal to 126 mg/dL meet the criteria for diagnosis of diabetes. In the absence of unequivocal hyperglycemia, results should be confirmed by repeat testing. In a patient with classic symptoms of hyperglycemia or hyperglycemic crisis, random plasma glucose results greater than or equal to 200 mg/dL meet the criteria for diagnosis of diabetes. Reference: Standards of Medical Care in Diabetes 2016, [place] [employer] Association. Diabetes Care. 2016.39(Suppl 1). Performed By: #### 2 4323-8, , 2776-04 #### [facility] CLIA [id number] [address] [place] [address] [place] Phosphate [Mass/Vol] 3.4 mg/dL Normal 2.7-4.8 [facility] Comment on above: Order Comment: Van maier Type: BLOOD SPECIMEN Ordering Facility: [facility] Address: [address] [place] [address] Performed By: #### 2 4323-8, 69773-2, 2776-04 #### [facility] CLIA [id number] [address] [place] [address] [place] Potassium [Moles/Vol] 3.6 mmol/L Low 3.7-5.1 [facility] Comment on above: Order Comment: Van maier Type: BLOOD SPECIMEN Ordering Facility: [facility] Address: [address] [place], [place] [address] Performed By: #### 2 4323-8, 01849-5, 2777-1 #### [facility] CLIA [id number] [address] [place] [address] [place] Sodium [Moles/Vol] 144 mmol/L Normal 136-144 [facility] Comment on above: Order Comment: Speci men Type: BLOOD SPECIMEN Ordering Facility: [facility] Address: [address] [place] [address] Performed By: #### 2 4323-8, 36205-4, 2777-1 #### [facility] CLIA [id number] [address] [place] [address] [place] Urea nitrogen [Mass/Vol] 19 mg/dL Normal 9-24 [facility] Comment on above: Order Comment: Speci men Type: BLOOD SPECIMEN Ordering Facility: [facility] Address: [address] [place] [address] Performed By: #### 2 4323-8, 94848-6, 2777-1 #### [facility] IA [id number] [address] [place] [address] [place] US KIDNEY/BLADDERon 04-19-20 23 US KIDNEY/BLADDER * * *Final Report* * * DATE OF EXAM: Apr 19 2023 1:00PM ANITA 1055 - US KIDNEY/BLADDER / PROCEDURE REASON: Elevated serum creatinine * * * * Physician Interpretation * * * * EXAMINATION: RENAL ULTRASOUND CLINICAL HISTORY: Elevated creatinine TECHNIQUE: Sonography of the kidneys and urinary bladder was performed. Images were obtained and stored in a permanent archive. MQ: UR_1 COMPARISON: None RESULT: Right Kidney: -Renal length: 9.2 cm -Parenchyma: Normal parenchymal echogenicity. Normal parenchymal thickness. -Collecting system: No hydronephrosis. -Calculus: No echogenic, shadowing calculus. -Lesion: None. Left Kidney: -Renal length: 10.0 cm -Parenchyma: Normal parenchymal echogenicity. Normal parenchymal thickness. -Collecting system: No hydronephrosis. -Calculus: No echogenic, shadowing calculus. -Lesion: None. Bladder: Normal sonographic appearance. IMPRESSION: No hydronephrosis or echogenic, shadowing calculus. Forensic Accountant: ISAIAH Transcribe Date/Time: Apr 23 2023 8:43P Dictated by : SY ROJAS MD This examination was interpreted and the report reviewed and electronically signed by: SY ROJAS MD on Apr 23 2023 8:44PM EST [id number] Normal [facility] Urinalysis complete panel (U )on 04-19-2023 Bacteria LM.HPF (Urine sed) [#/Area] Negative Normal Negative [facility] Comment on above: Order Comment: Speci men Type: BLOOD SPECIMEN Ordering Facility: [facility] Address: [address] [place] [address] Performed By: #### 2 4323-8, , 2776-04 #### [facility] CLIA [id number] [address] [place] [address] [place] Bilirubin Ql (U) Negative Normal Negative [facility] Comment on above: Order Comment: Speci men Type: BLOOD SPECIMEN Ordering Facility: [facility] Address: [address] [place] [address] Performed By: #### 2 4323-8, , 2776-04 #### [facility] CLIA [id number] [address] [place] [address] [place] Clarity (Unsp spec) Clear Normal Clear [facility] Comment on above: Order Comment: Speci men Type: BLOOD SPECIMEN Ordering Facility: [facility] Address: [address] [place] [address] Performed By: #### 2 4323-8, , 2776-04 #### [facility] CLIA [id number] [address] [place] [address] [place] Color (U) Yellow Normal Yellow [facility] Comment on above: Order Comment: Speci men Type: BLOOD SPECIMEN Ordering Facility: [facility] Address: [address] [place] [address] Performed By: #### 2 4323-8, 88742-4, 2776-04 #### [facility] CLIA [id number] [address] [place] [address] [place] Epithelial cells LM.HPF (Urine sed) [#/Area] None Seen Normal [facility] Comment on above: Order Comment: Speci men Type: BLOOD SPECIMEN Ordering Facility: [facility] Address: [address] [place] [address] Performed By: #### 2 4323-8, , 2776-04 #### [facility] CLIA [id number] [address] [place] [address] [place] Glucose Test strip (U) [Mass/Vol] Negative Normal Negative [facility] Comment on above: Order Comment: Speci men Type: BLOOD SPECIMEN Ordering Facility: [facility] Address: [address] [place] [address] Performed By: #### 2 4323-8, , 2776-04 #### [facility] CLIA [id number] [address] [place] [address] [place] Hemoglobin Ql (U) Negative Normal Negative [facility] Comment on above: Order Comment: Speci men Type: BLOOD SPECIMEN Ordering Facility: [facility] Address: [address] [place] [address] Performed By: #### 2 4323-8, , 2776-04 #### [facility] CLIA [id number] [address] [place] [address] [place] Hyaline casts (Urine sed) [#/Area] 1-3 /LPF Abnormal 0 /LPF [facility] Comment on above: Order Comment: Speci men Type: BLOOD SPECIMEN Ordering Facility: [facility] Address: [address] [place] [address] Performed By: #### 2 4323-8, 67049-3, 2776-04 #### [facility] CLIA [id number] [address] [place] [address] [place] Ketones Ql (U) Negative Normal Negative [facility] Comment on above: Order Comment: Speci men Type: BLOOD SPECIMEN Ordering Facility: [facility] Address: [address] [place] [address] Performed By: #### 2 4323-8, , 2776-04 #### [facility] CLIA [id number] [address] [place] [address] [place] Leukocyte esterase Test strip Ql (U) Negative Normal Negative [facility] Comment on above: Order Comment: Speci men Type: BLOOD SPECIMEN Ordering Facility: [facility] Address: [address] [place] [address] Performed By: #### 2 432-8, , 2776-04 #### [facility] CLIA [id number] [address] [place] [address] [place] Nitrite Ql (U) Negative Normal Negative [facility] Comment on above: Order Comment: Speci men Type: BLOOD SPECIMEN Ordering Facility: [facility] Address: [address] [place] [address] Performed By: #### 2 4323-8, , 2776-04 #### [facility] CLIA [id number] [address] [place] [address] [place] pH (U) 7.0 [pH] Normal <8.5 [facility] Comment on above: Order Comment: Speci men Type: BLOOD SPECIMEN Ordering Facility: [facility] Address: [address] [place] [address] Performed By: #### 2 4323-8, , 2776-04 #### [facility] CLIA [id number] [address] [place] [address] [place] Protein (U) [Mass/Vol] Trace Abnormal Negative [facility] Comment on above: Order Comment: Speci men Type: BLOOD SPECIMEN Ordering Facility: [facility] Address: [address] [place] [address] Performed By: #### 2 4323-8, 11359-7, 2776-04 #### [facility] CLIA [id number] [address] [place] [address] [place] RBC LM.HPF (Urine sed) [#/Area] 0-2 /HPF Normal 0-2 /HPF [facility] Comment on above: Order Comment: Speci men Type: BLOOD SPECIMEN Ordering Facility: [facility] Address: [address] [place] [address] Performed By: #### 2 4323-8, , 2776-04 #### [facility] CLIA [id number] [address] [place] [address] [place] Specific gravity (U) [Rel density] 1.018 Normal 1.005-1.030 [facility] Comment on above: Order Comment: Speci men Type: BLOOD SPECIMEN Ordering Facility: [facility] Address: [address] [place] [address] Performed By: #### 2 4323-8, , 2776-04 #### [facility] CLIA [id number] [address] [place] [address] [place] Urobilinogen Ql (U) 2.0 EU/dL Abnormal 0.2-1.0 EU/dL [facility] Comment on above: Order Comment: Speci men Type: BLOOD SPECIMEN Ordering Facility: [facility] Address: [address] [place] [address] Performed By: #### 2 4323-8, , 2776-04 #### [facility] CLIA [id number] [address] [place] [address] [place] WBC LM.HPF (Urine sed) [#/Area] 0-5 /HPF Normal 0-5 /HPF [facility] Comment on above: Order Comment: Speci men Type: BLOOD SPECIMEN Ordering Facility: [facility] Address: [address] [place] [address] Performed By: #### 2 4323-8, 41627-9, 2777-1 #### [facility] CLIA [id number] [address] [place] [address] CNOVon 04-13-2023 CNOV Office Visit ([facility] ) SHERMAN MARIE ([id number]) 1980 M Date Time Provider Department 04/13/23 10:40 AM DAYDAY JEONG During your visit today, we recorded the following information about you: Pulse Blood pressure Weight 84/minute 109/65 247.7 kg Dayday Jeong MD 04/25/2023 9:17 AM Addendum [facility] SERVICE DATE: 04/13/2023 REASON FOR CONSULT: I am asked to see this patient in consultation for my opinion regarding elevated creatinine.. My recommendations will be communicated by way of shared medical record, fax, or mail. REQUESTING PHYSICIAN: Jo Henson, APR* PRIMARY CARE PHYSICIAN: No primary care provider on file. CHIEF COMPLAINT: Elevated creatinine. HPI: 42 year old male with medical history significant for Morbid Obesity, Lymphedema, fatty liver has been referred for elevated creatinine. He as admitted September, to May, 2022 in a hospital in [place], [place]. Back then he had lost his mobility. Apparently he was treated with IV lasix. He has been on Torsemide and Spironolactone since then. He was transferred from [place] to [place] as there was no facility that could handle a person of 'his size' over there. He does have his family and kids in [place]. He 692 lbs when he checked into the [facility]. He does not remember anyone telling his in the hospital that he has any kidney problems. He did have cellulitis in his leg and was treated with oral antibiotics for 10 days. He had an allergic reaction and used prednisone and anti-histamine. He uses Alleve around 2 caps 2-3 times a week; he has been doing that since May, 2022. No recent IV contrast/dye use. No h/o hematuria, dysuria, urgency or frequency. No h/o recurrent diarrhea or vomiting. No history of awvp-wia-tmtgqia meds use or herbal meds use. No history of renal stones. He stayed at a rehab facility from May, 2022 to feb, 2023. Had labs done at the facility under Dr Dee which revealed abnormal kidney function in 11/2022. Seen by General surgery here at . Planned for Sleeve Gastrectomy; referred to us for optimization prior to surgery. The only set of labs are outside labs done on 12/07/2022 with stools creatinine of 2.1, BUN 27, EGFR 42 mill per minute. LDL 65, A1c 5.3, TSAT 19%, hemoglobin 11.1. He is on torsemide 100 mg daily, spironolactone 25 mg daily, levothyroxine 125 mcg daily, tramadol, famotidine. He drinks around 64 oz of water a day. Lives by himself these days; Cooks himself and does not add any salt to his diet. PAST MEDICAL HISTORY: PAST MEDICAL HISTORY Diagnosis Date Acquired hypothyroidism 11/26/2022 BMI 70 and over, adult (HCC) 11/26/2022 Gastroesophageal reflux disease without esophagitis 11/26/2022 Lymphedema 10/25/2022 ISI (obstructive sleep apnea) 11/26/2022 PAST SURGICAL HISTORY: PAST SURGICAL HISTORY Procedure Laterality Date REMOVAL GALLBLADDER FAMILY HISTORY: No family history on file. SOCIAL HISTORY: Social History Tobacco Use Smoking status: Never Smokeless tobacco: Never Vaping Use Vaping Use: Never used Substance Use Topics Alcohol use: Not Currently Drug use: Never MEDICATIONS: levothyroxine (SYNTHROID) 125 mcg tablet torsemide (DEMADEX) 100 mg tablet spironolactone (ALDACTONE) 25 mg tablet famotidine (PEPCID) 40 mg tablet traMADol (ULTRAM) 50 mg tablet ALLERGIES: ALLERGIES Allergen Reactions Lactose Other: See Comments Sulfa (Sulfonamide * Itching Vancomycin Itching REVIEW OF SYSTEMS: Constitutional: No fevers, chills, weight loss Eyes: No loss in vision, photophobia Ear, Nose, and Throat: No epistaxis, nasal congestion Cardiovascular: No chest pain, S[place], SOB, palpitations Respiratory: No cough, hemoptysis Gastrointestinal: No diarrhea, constipation Genitourinary: No dysuria, polyuria Musculoskeletal: No joint pain, morning stiffness Skin: No rash, no ulcers Neurological: No headaches, seizures, paresthesias Psychiatric: No depression, anxiety Endocrine: No hair loss, no heat intolerance Hematologic:No easy bruising, easy bleeding PHYSICAL EXAM: BP 109/65 Pulse 84 Wt (!) 247.7 kg (546 lb) BMI 76.15 kg/m? BP - standardized method Pulse 1 BP #1: 114/67 Pulse #1: 84 beats/min 2 BP #2 : 99/62 Pulse #2 : 84 beats/min 3 BP #3 : 112/66 Pulse #3 : 84 beats/min Average Average BP: 109/65 Average Pulse: 84 beats/min Orthostatic vitals Supine Sitting Standing BP cuff location BP cuff size Comments for BP values First BP (right) First BP (left) Constitutional: No acute distress, Responsive, Well-nourished. Eyes: Conjunctiva clear, PERRL. Ear, Nose, and Throat: Hearing normal, Lips normal. Neck:Trachea midline, No jugular venous distension. Cardiovascular: Regular rate and ryhthm, normal S1 and S2, no murmurs, rubs, or gallops. Respirat (more content not included)... Normal [facility] 12[facility]08[facility]2022 [facility]) SHERMAN MARIE ([id number]) 1980 M Date Time Provider Department 12/08/22 JO HENSON [facility] During your visit today, we recorded the following information about you: Debbie Coombs 12/08/2022 3:48 PM Signed Iris from [facility] calling- their lab cant do H-Pylori blood tests. They can only run it as a stool sample. Will that still be ok? If so, a new order will have to be faxed to facility. pls advise. Jo Henson, TITI.PANEL INSTRUMENT REPAIRER 12/08/2022 4:46 PM Signed Ordered stool test. Jo Henson APRN.PANEL INSTRUMENT REPAIRER Allergies As of Date: 12/08/2022 Noted Allergy Reaction LACTOSE 11/26/2022 14 - Other: See Comments SULFA (SULFONAMIDE ANTIBIOTICS) 11/26/2022 9 - Itching VANCOMYCIN 11/26/2022 9 - Itching Date Reviewed: 12/01/2022 Reviewed by: Shyla Burnett RD - Fully Assessed Reason for Visit: Patient Update [1234] Primary Visit Diagnosis:BMI 70 and over, adult (HCC) [Z68.45] Order(s):H PYLORI AG BY EIA,STOOL [SQHPYLAG] Order #: [id number]. #:[id number] Prescriptions as of 12/08/2022 - levothyroxine (SYNTHROID) 125 mcg tablet - torsemide (DEMADEX) 100 mg tablet - spironolactone (ALDACTONE) 25 mg tablet - famotidine (PEPCID) 40 mg tablet - traMADol (ULTRAM) 50 mg tablet Problem List As Of Date 12/08/2022 Noted Resolved Morbid obesity (HCC) [E66.01] 10/25/2022 11/26/2022 Lymphedema [I89.0] 10/25/2022 Limited mobility [Z74.09] 10/25/2022 BMI 70 and over, adult (HCC) [Z68.45] 11/26/2022 Gastroesophageal reflux disease without esophag*11/26/2022 ISI (obstructive sleep apnea) [G47.33] 11/26/2022 Acquired hypothyroidism [E03.9] 11/26/2022 Encounter Status:Closed by JO HENSON on 12/08/22 Normal [facility] Vital Signs Date Time Vital Sign Value Performing Clinician Amber alvarez 04-13-2023 10:33-0500 Body weight 247.66 kg Dayday Jeong MD Work Phone: [facility] 04-13-2023 10:33-0500 Diastolic blood pressure 65 mm[Hg] Dayday Jeong MD Work Phone: [facility] 04-13-2023 10:33-0500 Heart rate 84 /min Dayday Jeong MD Work Phone: [facility] 04-13-2023 10:33-0500 Systolic blood pressure 109 mm[Hg] Dayday Jeong MD Work Phone: [facility] 04-05-2023 13:00-0500 Body height 180.[address] Work Phone: [facility] 03-14-2023 10:06-0500 Body height 180.[address] Work Phone: [facility] 02-01-2023 14:32-0400 Body height 180.[address] Work Phone: [facility] 01-03-2023 08:43-0400 Body height 180.[address] Work Phone: [facility] 01-03-2023 08:43-0400 Body weight 247.[address] Work Phone: [facility] 12-01-2022 13:23-0400 Body weight 253.[address] Work Phone: [facility] 11-26-2022 10:07-0400 Body weight 254.01 kg Jo Henson APRN.PANEL INSTRUMENT REPAIRER Work Phone: [facility] 11-03-2022 10:51-0400 Body weight 257.[address] Work Phone: [facility] 10-25-2022 14:30-0400 Body height 180.3 cm Michael Enciso MD Work Phone: [facility] 10-25-2022 14:30-0400 Body weight 257.64 kg Michael Enciso MD Work Phone: [facility] Encounters Encounter Date Encounter Type Care Provider Facility Start: 06-07-2023 Telephone encounter Dominick Monge RN General Surgery Comment on above: [facility] Start: 06-01-2023 Telephone encounter Dominick Monge RN General Surgery Comment on above: [facility] Follow Up Phone Call (All Clear) Start: 06-01-2023 End: 06-01-2023 ambulatory KISHOR CORBY Facility:[facility] Start: 06-01-2023 End: 06-01-2023 Admission to same day surgery center Fellow Margaret Main Work Phone: General Surgery Comment on above: Aftercare following surgery (Primary Dx) Start: 06-01-2023 End: 06-01-2023 Telemedicine consultation with patient Fellow Margaret Main Work Phone: [facility] Start: 05-31-2023 Telephone encounter Dominick Monge RN General Surgery Comment on above: Post Op Start: 05-23-2023 End: 05-30-2023 Evaluation and management of inpatient JO HENSON Facility:[facility] Start: 05-23-2023 End: 05-23-2023 Evaluation and management of inpatient JO HENSON Facility:[facility] Start: 05-23-2023 End: 05-24-2023 ambulatory KISHOR CORBY Facility:[facility] Start: 05-23-2023 Encounter for other preprocedural examination RUPESH NOVA [facility] Start: 05-20-2023 ambulatory Kishor Corby Facility:[facility] Start: 05-12-2023 End: 05-12-2023 ambulatory MICHAEL ENCISO Facility:[facility] Start: 04-19-2023 End: 04-19-2023 ambulatory DAYDAY JEONG Facility:[facility] Start: 04-13-2023 End: 04-13-2023 ambulatory JO HENSON Facility:[facility] Start: 04-13-2023 End: 04-13-2023 Patient encounter procedure Dayday Jeong MD Work Phone: Kidney Medicine Comment on above: Elevated serum creat inine (Primary Dx); Lymphedema; Morbid obesity (HCC) Start: 04-05-2023 End: 04-05-[address] Work Phone: General Surgery Comment on above: BMI 70 and over, radha lt (HCC) (Primary Dx); Dietary counseling and surveillance Start: 04-05-2023 End: 04-05-2023 Telemedicine consultation with patient Rupesh Nova RD Work Phone: [facility] Start: 03-14-2023 End: 03-14-2023 ambulatory RUPESH NOVA Facility:[facility] Start: 03-14-2023 End: 03-14-[address] Work Phone: General Surgery Comment on above: BMI 70 and over, radha lt (HCC) (Primary Dx); Dietary counseling and surveillance Start: 03-14-2023 End: 03-14-2023 Telemedicine consultation with patient Rupesh Nova RD Work Phone: [facility] Start: 02-01-2023 End: 02-01-[address] Work Phone: General Surgery Comment on above: BMI 70 and over, radha lt (HCC) (Primary Dx); Dietary counseling and surveillance Start: 02-01-2023 End: 02-01-2023 Telemedicine consultation with patient Rupesh Nova RD Work Phone: [facility] Start: 01-24-2023 End: 01-24-2023 ambulatory Jomar Gillespie PhD Work Phone: General Surgery BMI PSYL Comment on above: Psychological factor s affecting morbid obesity (Primary Dx) Start: 01-24-2023 End: 01-24-2023 Telemedicine consultation with patient Jomar Gillespie PhD Work Phone: [facility] Start: 01-03-2023 End: 01-03-2023 ambulatory RUPESH NOVA Facility:[facility] Start: 01-03-2023 End: 01-03-[address] Work Phone: General Surgery Comment on above: BMI 70 and over, radha lt (HCC) (Primary Dx); Dietary counseling and surveillance Start: 01-03-2023 End: 01-03-2023 Telemedicine consultation with patient Rupesh Nova RD Work Phone: [facility] Start: 12-16-2022 ambulatory Jo Wong APRN.PANEL INSTRUMENT REPAIRER Work Phone: General Surgery Comment on above: Testing results Start: 12-16-2022 E-mail encounter fro m caregiver Jo Henson APRN.PANEL INSTRUMENT REPAIRER Work Phone: [place] [phone] Start: 12-06-2022 ambulatory Jo Wong APRN.PANEL INSTRUMENT REPAIRER Work Phone: General Surgery Comment on above: Testing Start: 12-01-2022 End: 12-01-2022 ambulatory SHYLA BURNETT Facility:[facility] Start: 12-01-2022 End: 12-01-[address] Work Phone: [facility] [place] Comment on above: BMI 70 and over, radha lt (HCC) (Primary Dx); Dietary counseling Start: 12-01-2022 End: 12-01-2022 Telemedicine consultation with patient Shyla Burnett RD Work Phone: [facility] Start: 11-26-2022 End: 11-26-2022 ambulatory Jo Henson APRN.PANEL INSTRUMENT REPAIRER Work Phone: General Surgery Comment on above: BMI 70 and over, radha lt (HCC) (Primary Dx); Lymphedema; Limited mobility; Gastroesophageal reflux disease without esophagitis; ISI (obstructive sleep apnea); Acquired hypothyroidism Start: 11-26-2022 End: 11-26-2022 Telemedicine consultation with patient Jo Henson APRN.PANEL INSTRUMENT REPAIRER Work Phone: [place] [phone] Start: 11-03-2022 End: 11-03-2022 ambulatory SHYLA BURNETT Facility:[facility] Start: 11-03-2022 End: 11-03-[address] Work Phone: [facility] [place] Comment on above: BMI 70 and over, radha lt (HCC) (Primary Dx); Dietary counseling Start: 11-03-2022 End: 11-03-2022 Telemedicine consultation with patient Shyla Burnett RD Work Phone: [facility] Start: 10-25-2022 End: 10-25-2022 ambulatory MICHAEL ENCISO Facility:[facility] Start: 10-25-2022 End: 10-25-2022 ambulatory Michael Enciso MD Work Phone: General Surgery Comment on above: Morbid obesity (HCC) (Primary Dx); Lymphedema; Limited mobility Start: 10-25-2022 End: 10-25-2022 Telemedicine consultation with patient Michael Enciso MD Work Phone: [facility] Procedures Date Procedure Procedure Detail Performing Clinician Start: 05-23-2023 Antibody screen RUPESH CLEMENTS Comment on above: Order Comment: Speci men Type: BLOOD SPECIMENOrdering Facility: [facility] Address: [address] [place] [address] Performed By: #### T [id number] ####[facility] BLOOD BANKCLIA [id number] [place] [address] [place] Plan of Treatment Date Care Activity Detail Author Start: 05-30-2026 Diabetes Screening Diabetes Screenin g [facility] Start: 04-25-2023 Depression Assessment Depression Ass essment [facility] Start: 2023 Screening for malign ant neoplasm of colon [facility] Start: 04-13-2023 End: 07-13-2023 25-hydroxyvitamin D3 [Mass/volume] in Serum or Plasma VITAMIN D 25 HYDROXY Lab Routine Elevated serum creatinine Expected: 04/13/2023, Expires: 07/13/2023 [facility] Work Phone: Comment on above: Expected: 04/13/2023 , Expires: 07/13/2023 Start: 04-13-2023 End: 07-13-2023 ALBUMIN/CREAT RATIO RND UR ALBUMIN/CREAT RATIO RND UR Lab Routine Elevated serum creatinine Expected: 04/13/2023, Expires: 07/13/2023 [facility] Work Phone: Comment on above: Expected: 04/13/2023 , Expires: 07/13/2023 Start: 04-13-2023 End: 07-13-2023 CBC panel - Blood by Automated count CBC Lab Routine Elevated serum creatinine Expected: 04/13/2023, Expires: 07/13/2023 [facility] Work Phone: Comment on above: Expected: 04/13/2023 , Expires: 07/13/2023 Start: 04-13-2023 End: 07-13-2023 CYSTATIN C CYSTATIN C Lab Routine Elevated serum creatinine Expected: 04/13/2023, Expires: 07/13/2023 [facility] Work Phone: Comment on above: Expected: 04/13/2023 , Expires: 07/13/2023 Start: 04-13-2023 End: 07-13-2023 Magnesium [Mass/volume] in Serum or Plasma MAGNESIUM BLD Lab Routine Elevated serum creatinine Expected: 04/13/2023, Expires: 07/13/2023 [facility] Work Phone: Comment on above: Expected: 04/13/2023 , Expires: 07/13/2023 Start: 04-13-2023 End: 07-13-2023 Parathyrin.intact [Mass/volume] in Serum or Plasma PTH INTACT BLD Lab Routine Elevated serum creatinine Expected: 04/13/2023, Expires: 07/13/2023 [facility] Work Phone: Comment on above: Expected: 04/13/2023 , Expires: 07/13/2023 Start: 04-13-2023 End: 07-13-2023 Protein/Creatinine [Mass Ratio] in Urine PROTEIN CREATININE RATIO Lab Routine Elevated serum creatinine Expected: 04/13/2023, Expires: 07/13/2023 [facility] Work Phone: Comment on above: Expected: 04/13/2023 , Expires: 07/13/2023 Start: 04-13-2023 End: 07-13-2023 Renal function 2000 panel - Serum or Plasma RENAL FUNCTION PANEL Lab Routine Elevated serum creatinine Expected: 04/13/2023, Expires: 07/13/2023 [facility] Work Phone: Comment on above: Expected: 04/13/2023 , Expires: 07/13/2023 Start: 04-13-2023 End: 07-13-2023 Urinalysis complete panel - Urine URINALYSIS, WITH MICROSCOPIC Lab Routine Elevated serum creatinine Expected: 04/13/2023, Expires: 07/13/2023 [facility] Work Phone: Comment on above: Expected: 04/13/2023 , Expires: 07/13/2023 Start: 12-24-2022 Influenza vaccination C [facility] Start: 11-26-2022 End: 01-26-2023 25-hydroxyvitamin D3 [Mass/volume] in Serum or Plasma VITAMIN D 25 HYDROXY Lab Routine BMI 70 and over, adult (HCC) Expected: 11/26/2022, Expires: 01/26/2023 [facility] Work Phone: Comment on above: Expected: 11/26/2022 , Expires: 01/26/2023 Start: 11-26-2022 End: 01-26-2023 CBC W Auto Differential panel - Blood CBC + DIFF Lab Routine BMI 70 and over, adult (HCC) Expected: 11/26/2022, Expires: 01/26/2023 [facility] Work Phone: Comment on above: Expected: 11/26/2022 , Expires: 01/26/2023 Start: 11-26-2022 End: 01-26-2023 Cobalamin (Vitamin B12) [Mass/volume] in Serum or Plasma VITAMIN B12 BLOOD Lab Routine BMI 70 and over, adult (HCC) Expected: 11/26/2022, Expires: 01/26/2023 [facility] Work Phone: Comment on above: Expected: 11/26/2022 , Expires: 01/26/2023 Start: 11-26-2022 End: 01-26-2023 Comprehensive metabolic 2000 panel - Serum or Plasma COMP METABOLIC PANEL Lab Routine BMI 70 and over, adult ([facility]) Gastroesophageal reflux disease without esophagitis Expected: 11/26/2022, Expires: 01/26/2023 [facility] Work Phone: Comment on above: Expected: 11/26/2022 , Expires: 01/26/2023 Start: 11-26-2022 End: 01-26-2023 Ferritin [Mass/volume] in Serum or Plasma FERRITIN BLD Lab Routine BMI 70 and over, adult ([facility]) Expected: 11/26/2022, Expires: 01/26/2023 [facility] Work Phone: Comment on above: Expected: 11/26/2022 , Expires: 01/26/2023 Start: 11-26-2022 End: 01-26-2023 Folate [Mass/volume] in Serum or Plasma FOLATE SERUM Lab Routine BMI 70 and over, adult ([facility]) Expected: 11/26/2022, Expires: 01/26/2023 [facility] Work Phone: Comment on above: Expected: 11/26/2022 , Expires: 01/26/2023 Start: 11-26-2022 End: 01-26-2023 Helicobacter pylori IgG Ab [Presence] in Serum or Plasma by Immunoassay H PYLORI IGG AB Lab Routine BMI 70 and over, adult ([facility]) Expected: 11/26/2022, Expires: 01/26/2023 [facility] Work Phone: Comment on above: Expected: 11/26/2022 , Expires: 01/26/2023 Start: 11-26-2022 End: 01-26-2023 Hemoglobin A1c in Blood HGB A1C Lab Routine BMI 70 and over, adult ([facility]) Expected: 11/26/2022, Expires: 01/26/2023 [facility] Work Phone: Comment on above: Expected: 11/26/2022 , Expires: 01/26/2023 Start: 11-26-2022 End: 01-26-2023 Iron and Iron binding capacity panel - Serum or Plasma IRON + TIBC Lab Routine BMI 70 and over, adult (HCC) Expected: 11/26/2022, Expires: 01/26/2023 [facility] Work Phone: Comment on above: Expected: 11/26/2022 , Expires: 01/26/2023 Start: 11-26-2022 End: 01-26-2023 Lipid 1996 panel - Serum or Plasma LIPID PANEL BASIC Lab Routine BMI 70 and over, adult (HCC) Expected: 11/26/2022, Expires: 01/26/2023 [facility] Work Phone: Comment on above: Expected: 11/26/2022 , Expires: 01/26/2023 Start: 11-26-2022 End: 01-26-2023 Natriuretic peptide.B prohormone N-Terminal [Mass/volume] in Serum or Plasma NT PRO BNP Lab Routine BMI 70 and over, adult (HCC) Expected: 11/26/2022, Expires: 01/26/2023 [facility] Work Phone: Comment on above: Expected: 11/26/2022 , Expires: 01/26/2023 Start: 11-26-2022 End: 01-26-2023 NICOTINE & METAB, UR NICOTINE & METAB, UR Lab Routine BMI 70 and over, adult (HCC) Expected: 11/26/2022, Expires: 01/26/2023 [facility] Work Phone: Comment on above: Expected: 11/26/2022 , Expires: 01/26/2023 Start: 11-26-2022 End: 01-26-2023 Thyrotropin [Units/volume] in Serum or Plasma TSH BLD Lab Routine BMI 70 and over, adult (HCC) Acquired hypothyroidism Expected: 11/26/2022, Expires: 01/26/2023 [facility] Work Phone: Comment on above: Expected: 11/26/2022 , Expires: 01/26/2023 Start: 11-26-2022 End: 01-26-2023 TOX SCREEN ROUT UR TOX SCREEN ROUT UR Lab Routine BMI 70 and over, adult (HCC) Expected: 11/26/2022, Expires: 01/26/2023 [facility] Work Phone: Comment on above: Expected: 11/26/2022 , Expires: 01/26/2023 Start: 11-26-2022 End: 01-26-2023 VITAMIN B1 (THIAMINE), WHOLE BLOOD VITAMIN B1 (THIAMINE), WHOLE BLOOD Lab Routine BMI 70 and over, adult (HCC) Expected: 11/26/2022, Expires: 01/26/2023 [facility] Work Phone: Comment on above: Expected: 11/26/2022 , Expires: 01/26/2023 Start: 04-25-2022 DEPRESSION ASSESSMENT DEPRESSION ASS ESSMENT [facility] Start: 2013 Lipid 1996 panel - Serum or Plasma Lipid Screening [facility] Start: 2013 Lipid panel Lipid Screening [facility] Start: 2013 LIPID SCREEN LIPID SCREEN [facility] Start: 1997 Urine microalbumin profile [facility] Start: 1996 ANNUAL PCP TEAM INSTRUCTIONAL TECHNOLOGY COACH MARISEL DISEASE VISIT ANNUAL PCP TEAM CHRONIC DISEASE VISIT [facility] Start: 1996 HEPATITIS C SCREENING HEPATITIS C [facility] Start: 1996 Hepatitis C screening Hepatitis C [facility] Start: 1996 HIV SCREENING HIV SCREENING [facility] Start: 1996 HIV screening HIV Screening [facility] Start: 1978 COVID-19 VACCINE (#1) COVID-19 VACCI NE (#1) [facility] Start: 1978 HEPATITIS B (1 of 3 - 3-dose series) HEPATITIS B (1 of 3 - 3-dose series) [facility] Start: 1978 Hepatitis B Vaccine (1 of 3 - 3-dose series) Hepatitis B Vaccine (1 of 3 - 3-dose series) [facility] End: 04-13-2024 CBC panel - Blood by Automated count CBC Lab Routine Elevated serum creatinine Every 3 months for 4 Occurrences starting 04/13/2023 until 04/13/2024 [facility] Work Phone: Comment on above: Every 3 months for 4 Occurrences starting 04/13/2023 until 04/13/2024 End: 11-27-2023 ECG COMPLETE ECG COMPLETE ECG Routine BMI 70 and over, adult (HCC) Lymphedema 1 Occurrences starting 11/26/2022 until 11/27/2023 [facility] Work Phone: Comment on above: 1 Occurrences starti ng 11/26/2022 until 11/27/2023 End: 04-13-2024 Protein/Creatinine [Mass Ratio] in Urine PROTEIN CREATININE RATIO Lab Routine Elevated serum creatinine Every 3 months for 4 Occurrences starting 04/13/2023 until 04/13/2024 [facility] Work Phone: Comment on above: Every 3 months for 4 Occurrences starting 04/13/2023 until 04/13/2024 End: 12-26-2023 Radiologic exam chest 2 views XR CHEST 2V FRONTAL/LAT Radiology Routine BMI 70 and over, adult (HCC) ISI (obstructive sleep apnea) 1 Occurrences starting 11/26/2022 until 12/26/2023 [facility] Work Phone: Comment on above: 1 Occurrences starti ng 11/26/2022 until 12/26/2023 End: 04-13-2024 Renal function 2000 panel - Serum or Plasma RENAL FUNCTION PANEL Lab Routine Elevated serum creatinine Every 3 months for 4 Occurrences starting 04/13/2023 until 04/13/2024 [facility] Work Phone: Comment on above: Every 3 months for 4 Occurrences starting 04/13/2023 until 04/13/2024 End: 04-13-2024 Urinalysis complete panel - Urine URINALYSIS, WITH MICROSCOPIC Lab Routine Elevated serum creatinine Every 3 months for 4 Occurrences starting 04/13/2023 until 04/13/2024 [facility] Work Phone: Comment on above: Every 3 months for 4 Occurrences starting 04/13/2023 until 04/13/2024 End: 12-26-2023 US ABD RIGHT UPPER QUADRANT US ABD RIGHT UPPER QUADRANT Radiology Routine BMI 70 and over, adult (HCC) 1 Occurrences starting 11/26/2022 until 12/26/2023 [facility] Work Phone: Comment on above: 1 Occurrences starti ng 11/26/2022 until 12/26/2023 End: 05-12-2024 US KIDNEY/BLADDER US KIDNEY/BLADDER Radiology Routine Elevated serum creatinine 1 Occurrences starting 04/13/2023 until 05/12/2024 [facility] Work Phone: Comment on above: 1 Occurrences starti ng 04/13/2023 until 05/12/2024 [facility] Payers Date Payer Category Payer Self-pay 2022 Medicaid [id number] 2022 Private Health Insurance HUMANA HUMANA MEDICAID [facility] [id number] 2022-Present [address] [address] [place] [address] Medicaid [id number] Unknown [id number] Social History Date Type Detail Facility Tobacco smoking stat [facility] Tobacco smoking consumption unknown [facility] Start: 1978 Sex Assigned At Not on file [facility] Start: 10-25-2022 End: 05-25-2023 History of Social function [facility] Start: 10-25-2022 End: 05-25-2023 Area Deprivation Index [facility] National Score (1-10 0), lower number is lower risk 76 [facility] Start: 11-26-2022 [facility] Work Phone: Start: 11-26-2022 Tobacco use and exposure Smoke less tobacco non-user [facility] Work Phone: Start: 11-26-2022 End: 05-24-2023 Alcohol intake Ex-drinker (finding) [facility] Has the electric, ga s, oil, or Simple threatened to shut off services in your home in past 12Mo No [facility] How hard is it for y ou to pay for the very basics like food, housing, medical care, and heating Not very hard [facility] (I/We) worried regi er (my/our) food would run out before (I/we) got money to buy more. Never true [facility] Goals Date Patient Goal Desired Activity /State Personal health goal Clinical Notes 10-25-2022 to 06-07-2023 Telephone Encounter - Dominick Monge RN - 06/07/2023 3:08 PM ESTTelephone Encounter - Jefferson Leone RN - 06/01/2023 1:57 PM ESTTelephone Encounter - Dominick Monge RN - 06/01/2023 12:08 PM EST Note Date & Type Note Facility 06-07-2023 Miscellaneous Notes Returned call to [facility]; spoke with nurse transaction advisory services manager, Jenyn villa RN contact number for [employer]. documented in this encounter [facility] 06-01-2023 Miscellaneous Notes PATIENT INFORMATION Record ID: [id number] Patient Name: [facility]: [facility] [place]: [facility] [place] Attending: Michael Enciso Center: General Surgery INSTRUCTIONS SN to remind patient of appointment date, time, location All Clear All Clear SURVEY INFORMATION Medical/Nurse Financial Compliance Officer: Jefferson Leone 1. Your discharge instructions are important in guiding you through the recovery process. Is there anything I could help you clarify on your discharge instructions? (Standard Question) No, All clear 2. Do you have a follow up appointment related to your hospital stay scheduled within the next 30 days? (Standard Question) Yes 3. Do you have any of the following new symptoms related to your wound?; Creamy white or foul smelling drainage Increasing redness or swelling, Increasing pain (Red Flag Question) No, no concerns at all 4. Are you tolerating your pain with your current medication? (Red Flag Question) Yes, I can tolerate my pain 5. Many patients have concerns about their medications once they are home. Do you have any questions about getting or taking your medications? (Standard Question) No 6. Do you have any new or different symptoms? (Standard Question) No documented in this encounter [facility] 06-01-2023 Note HNO ID: [id number] Author: CRISTIAN ANTON MD Service: ? Author Type: Fellow Type: Progress Notes Filed: 06/01/2023 10:44 Note Text: Name: Sherman Marie This visit was performed virtually. I have communicated my name and active licensure. The patient?s identity and physical location were verified at the time of this visit. Either the patient or their legal outside sales account representative has been informed of the risks and benefits of -- and alternatives to -- treatment through a remote evaluation and consents to proceed with the evaluation remotely. Index Surgery Date of Surgery: 05/24/2023 Surgeon: Michael Enciso MD Surgical Procedure: LAPAROSCOPIC GASTRIC RESTRICTIVE SURG W/ BYPASS AND FARRAH-EN-Y 150CM OR LESS Pre-surgical weight: 281 kg (619 lb 7.9 oz) Other Bariatric Surgeries None Visit: 8 days Today's Visit: There were no vitals taken for this visit. No weight on file for this encounter. Last Visit: Wt: 281 kg (619 lb 7.9 oz) BMI: 86.40 kg/(m2) Total weight loss: Patient didn't weight himself. COMPLICATIONS SINCE LAST VISIT?: NONE DIET INTAKE: tolerates Phase II diet Patient tolerating phase two bariatric diet very well, denied any nausea or vomiting. He is exercising and walking . He drinks about 64 oz liquid a day and he takes about 60 gm protein. Current Outpatient Medications Medication Sig enoxaparin (LOVENOX) 60 mg/0.6 mL syrg Inject 0.6 mL subcutaneously two times a day for 28 days. ondansetron (ZOFRAN) 4 mg tablet Take 1 tablet by mouth every 6 hours as needed for nausea/vomiting for up to 40 doses. oxyCODONE IR (ROXICODONE) 5 mg immediate release tablet Take 1 tablet by mouth every 6 hours as needed for pain for up to [address] (PROTONIX) 40 mg tablet Take 1 tablet by mouth once daily. Walker misc 1 Units as needed. cholecalciferol, Vitamin D3, (VITAMIN D3) 1,250 mcg (50,000 unit) cap capsule Take 1 capsule by mouth one time a week. Afterwards take 2000 units over the counter daily levothyroxine (SYNTHROID) 125 mcg tablet torsemide (DEMADEX) 100 mg tablet Take 100 mg by mouth once daily. spironolactone (ALDACTONE) 25 mg tablet Take 25 mg by mouth once daily. No current facility-administered medications for this visit. ACTIVE PROBLEM LIST Morbid Obesity (Hcc) Lymphedema Limited Mobility Bmi 70 and Over, Adult (Hcc) Gastroesophageal Reflux Disease Without Esophagitis Isi (Obstructive Sleep Apnea) Acquired Hypothyroidism Elevated Serum Creatinine Hypoxia Post-Op Pain Obesity Hypoventilation Syndrome (Hcc) Acute Respiratory Failure With Hypoxia and Hypercapnia (Hcc) Compensated Respiratory Acidosis Hypervolemia Acute Postoperative Respiratory Insufficiency REVIEW OF SYSTEMS: CONSTITUTIONAL: Patient denies fevers, chills, sweats and weight changes. EYES: Patient denies any visual symptoms. EARS, NOSE, AND THROAT: No difficulties with hearing. No symptoms of rhinitis or sore throat. CARDIOVASCULAR: Patient denies chest pains, palpitations, orthopnea and paroxysmal nocturnal dyspnea. RESPIRATORY: No dyspnea on exertion, no wheezing or cough. GI: No nausea, vomiting, diarrhea, constipation, abdominal pain, hematochezia or melena. PHYSICAL EXAM: PHYSICAL EXAMINATION: There were no vitals taken for this visit. GENERAL: No apparent distress. Pt is alert and oriented x3. Assessment A/P: Normal post-OP course DISPOSITION: Return 3 weeks for in person follow up. - continue exercising. - No heavy lifting more than 10 Ib for at least 8 weeks. - continue on 60 gm protein protein a day and 64 oz liquid. - Adjusted patient medications, he will continue on torsemide 100 mg daily and he hold on spirolactone. Cristian Anton MD [facility] 06-01-2023 Miscellaneous Notes Per patient request, faxed copy of 05/30/23 discharge paperwork and order for walker to Generator Technician: grain elevator worker Brigitte Mejia [phone] documented in this encounter [facility] 06-01-2023 Instructions Cristian Anton MD - 06/01/2023 10:44 AM EST A/P: Normal post-OP course DISPOSITION: Return 3 weeks for in person follow up. - continue exercising. - No heavy lifting more than 10 Ib for at least 8 weeks. - continue on 60 gm protein protein a day and 64 oz liquid. - Adjusted patient medications, he will continue on torsemide 100 mg daily and he hold on spirolactone. documented in this encounter [facility] 06-01-2023 History of Presen t illness Narrative Name: Sherman Marie This visit was performed virtually. I have communicated my name and active licensure. The patient s identity and physical location were verified at the time of this visit. Either the patient or their legal outside sales account representative has been informed of the risks and benefits of -- and alternatives to -- treatment through a remote evaluation and consents to proceed with the evaluation remotely. Index Surgery Date of Surgery: 05/24/2023 Surgeon: Michael Enciso MD Surgical Procedure: LAPAROSCOPIC GASTRIC RESTRICTIVE SURG W/ BYPASS & FARRAH-EN-Y 150CM OR LESS Pre-surgical weight: 281 kg (619 lb 7.9 oz) Other Bariatric Surgeries None Visit: 8 days Today's Visit: There were no vitals taken for this visit. No weight on file for this encounter. Last Visit: Wt: 281 kg (619 lb 7.9 oz) BMI: 86.40 kg/(m^2) Total weight loss: Patient didn't weight himself. COMPLICATIONS SINCE LAST VISIT?: NONE DIET INTAKE: tolerates Phase II diet Patient tolerating phase two bariatric diet very well, denied any nausea or vomiting. He is exercising and walking . He drinks about 64 oz liquid a day and he takes about 60 gm protein. Current Outpatient Medications Medication Sig enoxaparin (LOVENOX) 60 mg/0.6 mL syrg Inject 0.6 mL subcutaneously two times a day for 28 days. ondansetron (ZOFRAN) 4 mg tablet Take 1 tablet by mouth every 6 hours as needed for nausea/vomiting for up to 40 doses. oxyCODONE IR (ROXICODONE) 5 mg immediate release tablet Take 1 tablet by mouth every 6 hours as needed for pain for up to [address] (PROTONIX) 40 mg tablet Take 1 tablet by mouth once daily. Walker misc 1 Units as needed. cholecalciferol, Vitamin D3, (VITAMIN D3) 1,250 mcg (50,000 unit) cap capsule Take 1 capsule by mouth one time a week. Afterwards take 2000 units over the counter daily levothyroxine (SYNTHROID) 125 mcg tablet torsemide (DEMADEX) 100 mg tablet Take 100 mg by mouth once daily. spironolactone (ALDACTONE) 25 mg tablet Take 25 mg by mouth once daily. No current facility-administered medications for this visit. ACTIVE PROBLEM LIST Morbid Obesity (Hcc) Lymphedema Limited Mobility Bmi 70 and Over, Adult (Hcc) Gastroesophageal Reflux Disease Without Esophagitis Isi (Obstructive Sleep Apnea) Acquired Hypothyroidism Elevated Serum Creatinine Hypoxia Post-Op Pain Obesity Hypoventilation Syndrome (Hcc) Acute Respiratory Failure With Hypoxia and Hypercapnia (Hcc) Compensated Respiratory Acidosis Hypervolemia Acute Postoperative Respiratory Insufficiency REVIEW OF SYSTEMS: CONSTITUTIONAL: Patient denies fevers, chills, sweats and weight changes. EYES: Patient denies any visual symptoms. EARS, NOSE, AND THROAT: No difficulties with hearing. No symptoms of rhinitis or sore throat. CARDIOVASCULAR: Patient denies chest pains, palpitations, orthopnea and paroxysmal nocturnal dyspnea. RESPIRATORY: No dyspnea on exertion, no wheezing or cough. GI: No nausea, vomiting, diarrhea, constipation, abdominal pain, hematochezia or melena. PHYSICAL EXAM: PHYSICAL EXAMINATION: There were no vitals taken for this visit. GENERAL: No apparent distress. Pt is alert and oriented x3. Assessment A/P: Normal post-OP course DISPOSITION: Return 3 weeks for in person follow up. - continue exercising. - No heavy lifting more than 10 Ib for at least 8 weeks. - continue on 60 gm protein protein a day and 64 oz liquid. - Adjusted patient medications, he will continue on torsemide 100 mg daily and he hold on spirolactone. Cristian Anton MD Advanced Laparoscopic and Bariatric Surgery documented in this encounter [facility] 05-31-2023 Miscellaneous Notes BMI SPECIALTY CARE COORDINATION POST-OP TELEPHONE CALL BMI Post Op Telephone Call Pt was called on the first day after discharge. DO YOU HAVE A COPY OF YOUR DISCHARGE INSTRUCTIONS YES Is there anything in your discharge instructions that you do not understand? NO Pain: tolerable. On a scale of 0-10, 0 being not satisfied and 10 being very satisfied, how satisfied were you with your pain management strategy after surgery? 10 Patient instructed not to take any narcotic pain medications (such as Roxicodone) within three hours before bedtime as it may cause breathing difficulty. If you are having pain at bedtime you may take Tylenol (liquid form or two extra strength tablets). Phase 2 full liquid diet: woke up 0930 time of phone call 1100 tolerating diet and pt estimates 0 grams of protein and 8 oz of fluid daily. Feels bloated Patient verbalized understanding of recommended amounts of protein and 64 ounces of clear liquid each day and will work toward daily goal. Patient to continue to sip on fluids throughout the day and to take a water bottle wherever he goes. Incisions: surgical glue intact GI: +flatus Last BM 05/28/23 feels bloated Constipation: The patient is having some constipation that can potentially lead to nausea or worsening nausea. I explained to the patient that we want to have a goal of one bowel movement every third day or at least every other day in the first few months following bariatric surgery. Miralax, Milk of Magnesia works well for this, but also an [id number] supplement/drink (e.g. Smooth Move Tea) also works very well in patients post bariatric surgery. : WNL Medications: NOT taking as prescribed PPI and lovenox Patient discharged home prior to receiving home going medications. This RN phoned Dr. Doris Alberto to request new orders PPI Protonix, lovenox be sent to [facility] close to patient home. Patient states he has a friend that will warehouse order picker medication today and will begin taking. Patient verbalized understanding of importance of and will continue to ambulate around house at least once every hour; blood clot prevention and to continue to use incentive spirometer 10 times every hour while awake. This RN confirmed with Dr. Craig patient to continue taking post op daily dose of diuretic: torsemide (DEMADEX) 100 mg tablet once daily. Patient has scheduled a follow up with PCP in three weeks. 1246 RN phoned patient to confirm fill of post op medications Tania ROBERTSON RN phoned [employer] [phone] patient requesting assistance with prescription for walker. ([employer] and [employer] denied coverage) CPAP USE: Yes Remind patient of post op appt. This RN sent message to master scheduler to arrange 06/01/23 post op follow up [place] and 1 mo post op appointment. Reminded patient of how to reach [facility] or their surgeons office. Patient reminded to seek medical attention if they develop chest pain, a sudden onset of shortness of breath or persistent pain in the calf of their legs - BEST TO ALWAYS present to [facility] hospital where you had your surgery Patient verbalized understanding of all advice and instructions given. Dominick Monge RN documented in this encounter [facility] 05-30-2023 Note HNO ID: [id number] Author: LU CARPENTER RN Service: Care Management Author Type: Registered Nurse Type: Care Mgt Progress Note Filed: 05/30/2023 14:23 Note Text: CARE MANAGEMENT DISCHARGE NOTE SERVICE DATE: May 30, 2023 SERVICE TIME: 2:20 PM Admission Date: 05/23/2023 LOS: 7 days Discharge Arrangement Services Arranged Medical Services: Skilled Home Health Care Type: Fpc, Physical Therapy Provider Name: [employer] [facility] [employer] DME: [phone] Caregiver Assessment Caregiver is ready, willing and able to meet the patient's needs as recommended by the inter-professional team: No Caregiver needed Transportation Arrangements Transportation Arrangements: Uber/Lyft (through [employer]) Handoff Communication: Additional Information: CM met with patient discussed discharge plan home with [employer] E-tank delivered to bedside from [employer]. Patient has called his [employer] for discharge transportation. Discharge Information Row Name Admission (Current) from 05/23/2023 in HOSP [facility] M[facility] Home Health Care Agency [employer] Phone# Durable Medical Equipment Agency [employer] SIGNATURE: Lu Carpenter RN PATIENT NAME: Sherman Marie DATE: May 30, 2023 TIME: 2:20 PM CONTACT #: N/A [facility] 05-30-2023 Note HNO ID: [id number] Author: DORIS ALBERTO MD Service: General Surgery Author Type: Resident Type: Progress Notes Filed: 05/30/2023 14:51 Note Text: GENERAL SURGERY PROGRESS NOTE Sherman Marie [id number] ASSESSMENT AND PLAN 43M h/o hypothyroidism, ISI (on CPAP), lymphedema (on spironolactone and lasix), BMI 86.4, now s/p laparoscopic RYGB (05/24/2023). Initiated ion BiPAP in PACU for respiratory insuffiencey and admitted to the [facility] post-operatively. Overnight, hypoxic on CPAP requiring re-initiation of BiPAP and transfer to SICU. Plan - Pain control - Continue home torsemide - Desat study today - Phase II diet. SLIV - IV Fe - Lovenox 60 BID - Ambulation. PT - C consult Dispo: Anticipate discharge home today Doris Alberto M.D. General Surgery PGY2 [phone] Pager: [phone] ADDENDUM 2:50 PM Underwent desaturation study with RT and requires 2-3 LPM supplemental oxygen with ambulation, thus qualifying for home oxygen. Associated diagnosis: - Obesity hypoventilation syndrome - Hypoxia Patient Active Hospital Problem List: Class 3 severe obesity with serious comorbidity and body mass index (BMI) greater than or equal to 70 in adult, unspecified obesity type (HCC) (05/23/2023) Morbid obesity (HCC) (10/25/2022) Lymphedema (10/25/2022) Limited mobility (10/25/2022) BMI 70 and over, adult (HCC) (11/26/2022) Gastroesophageal reflux disease without esophagitis (11/26/2022) ISI (obstructive sleep apnea) (11/26/2022) Acquired hypothyroidism (11/26/2022) Elevated serum creatinine (04/13/2023) Hypoxia (05/25/2023) Post-op pain (05/25/2023) Obesity hypoventilation syndrome (HCC) (05/25/2023) Acute respiratory failure with hypoxia and hypercapnia (HCC) (05/25/2023) Compensated respiratory acidosis (05/26/2023) Hypervolemia (05/26/2023) Acute postoperative respiratory insufficiency (05/27/2023) SUBJECTIVE: No acute issues. On CPAP overnight Pain well controlled Denies nausea. Tolerating phase II diet Voiding. Working with PT OBJECTIVE: BP 129/58 Pulse 75 Temp 36.6 ?C (97.9 ?F) (Oral) Resp 12 Ht 182.9 cm (6') Wt (!) 260.3 kg (573 lb 12.8 oz) SpO2 98% BMI 77.82 kg/m? Body mass index is 77.82 kg/m?. GENERAL: Alert and oriented, no acute distress, cooperative. CARDIAC: regular rate LUNGS: Non labored breathing ABDOMEN: soft, non tender, non distended. WOUND: incisions clean, dry, and intact Labs: CBC, Coags, BMP, Mg, Phos Recent Labs 05/29/23 0813 05/29/23 0812 05/28/23 1340 WBC -- 5.87 7.12 HB -- 10.9* 12.5* HCT -- 37.2* 42.1 PLT -- 186 204 NA 138 -- 139 K 3.5* -- 3.5* CHLOR 90* -- 91* CO2 36* -- 36* BUN 13 -- 12 CREAT 1.39* -- 1.40* GLUC 93 -- 93 CA 9.2 -- 9.4 MG 2.1 -- 2.2 Liver Function, Amylase, AND Lipase I/O past 24h: Intake/Output Summary (Last 24 hours) at 05/30/2023 0808 Last data filed at 05/30/2023 0519 Gross per 24 hour Intake 1604 ml Output 2550 ml Net -946 ml LDA: Lines, Drains, and Airways Line Duration Peripheral 05/23/23 2138 [facility] Right Arm 22 Gauge 6 days Peripheral 05/25/23 0230 Short Left Forearm 20 Gauge 5 days SURGERY/PROCEDURE: Procedure(s) and Anesthesia Type: * LAPAROSCOPIC GASTRIC RESTRICTIVE SURG W/ BYPASS AND FARRAH-EN-Y 150CM OR LESS - General [facility] 05-29-2023 Note HNO ID: [id number] Author: DORIS ALBERTO MD Service: General Surgery Author Type: Resident Type: Progress Notes Filed: 05/29/2023 08:35 Note Text: GENERAL SURGERY PROGRESS NOTE Sherman Marie [id number] ASSESSMENT AND PLAN 43M h/o hypothyroidism, ISI (on CPAP), lymphedema (on spironolactone and lasix), BMI 86.4, now s/p laparoscopic RYGB (05/24/2023). Initiated ion BiPAP in PACU for respiratory insuffiencey and admitted to the [facility] post-operatively. Overnight, hypoxic on CPAP requiring re-initiation of BiPAP and transfer to SICU. Plan - Pain control - Pulmonology consulted, appreciate recs. - Continue home torsemide - HOB 60 degress. - Phase II diet. SLIV - IV Fe - Lovenox 60 BID - Ambulation. PT - C consult Dispo: [facility], anticipate discharge tomorrow Doris Alberto M.D. General Surgery PGY2 [phone] Pager: [phone] Patient Active Hospital Problem List: Class 3 severe obesity with serious comorbidity and body mass index (BMI) greater than or equal to 70 in adult, unspecified obesity type (HCC) (05/23/2023) Morbid obesity (HCC) (10/25/2022) Lymphedema (10/25/2022) Limited mobility (10/25/2022) BMI 70 and over, adult (HCC) (11/26/2022) Gastroesophageal reflux disease without esophagitis (11/26/2022) ISI (obstructive sleep apnea) (11/26/2022) Acquired hypothyroidism (11/26/2022) Elevated serum creatinine (04/13/2023) Hypoxia (05/25/2023) Post-op pain (05/25/2023) Obesity hypoventilation syndrome (HCC) (05/25/2023) Acute respiratory failure with hypoxia and hypercapnia (HCC) (05/25/2023) Compensated respiratory acidosis (05/26/2023) Hypervolemia (05/26/2023) Acute postoperative respiratory insufficiency (05/27/2023) SUBJECTIVE: No acute issues. On CPAP overnight. RA this AM Pain well controlled Denies nausea. Tolerating phase II diet Voiding. Working with PT OBJECTIVE: BP 132/55 Pulse 72 Temp 36.5 ?C (97.7 ?F) (Oral) Resp 18 Ht 182.9 cm (6') Wt (!) 260.4 kg (574 lb) SpO2 93% BMI 77.85 kg/m? Body mass index is 77.85 kg/m?. GENERAL: Alert and oriented, no acute distress, cooperative. CARDIAC: regular rate LUNGS: Non labored breathing ABDOMEN: soft, non tender, non distended. WOUND: incisions clean, dry, and intact Labs: CBC, Coags, BMP, Mg, Phos Recent Labs 05/28/23 1340 05/27/23 0033 05/27/23 0015 05/26/23 0859 WBC 7.12 7.11 -- 6.53 HB 12.5* 10.2* -- 10.2* HCT 42.1 34.9* -- 35.2* PLT 204 183 -- 189 NA 139 -- 144 144 K 3.5* -- 3.4* 3.5* CHLOR 91* -- 95* 97 CO2 36* -- 39* 36* BUN 12 -- 11 11 CREAT 1.40* -- 1.65* 1.59* GLUC 93 -- 100* 101* CA 9.4 -- 8.7 8.5 MG 2.2 -- 2.0 2.1 P -- -- 2.9 3.1 Liver Function, Amylase, AND Lipase Recent Labs 05/27/23 0015 TPROT 7.8 ALB 3.8* ALT 14 AST 14 ALKPHOS 38 TBILI 1.8* I/O past 24h: Intake/Output Summary (Last 24 hours) at 05/29/2023 0834 Last data filed at 05/28/2023 2302 Gross per 24 hour Intake 240 ml Output 1900 ml Net -1660 ml LDA: Lines, Drains, and Airways Line Duration Peripheral 05/23/23 2138 [facility] Right Arm 22 Gauge 5 days Peripheral 05/25/23 0230 Short Left Forearm 20 Gauge 4 days SURGERY/PROCEDURE: Procedure(s) and Anesthesia Type: * LAPAROSCOPIC GASTRIC RESTRICTIVE SURG W/ BYPASS AND FARRAH-EN-Y 150CM OR LESS - General [facility] 05-28-2023 Note HNO ID: [id number] Author: DORIS ALBERTO MD Service: General Surgery Author Type: Resident Type: Progress Notes Filed: 05/28/2023 08:41 Note Text: GENERAL SURGERY PROGRESS NOTE Sherman Marie [id number] ASSESSMENT AND PLAN 43M h/o hypothyroidism, ISI (on CPAP), lymphedema (on spironolactone and lasix), BMI 86.4, now s/p laparoscopic RYGB (05/24/2023). Initiated ion BiPAP in PACU for respiratory insuffiencey and admitted to the [facility] post-operatively. Overnight, hypoxic on CPAP requiring re-initiation of BiPAP and transfer to SICU. Plan - Pain control - Pulmonology consulted, appreciate recs. - Continue home torsemide - HOB 60 degress. - Phase II diet. SLIV - Discontinue Kidd catheter - IV Fe - Lovenox 60 BID - Ambulation. PT - HHC consult Dispo: [facility], anticipate discharge over the weekend Doris Alberto M.D. General Surgery PGY2 [phone] Pager: [phone] Patient Active Hospital Problem List: Class 3 severe obesity with serious comorbidity and body mass index (BMI) greater than or equal to 70 in adult, unspecified obesity type (HCC) (05/23/2023) Morbid obesity (HCC) (10/25/2022) Lymphedema (10/25/2022) Limited mobility (10/25/2022) BMI 70 and over, adult (HCC) (11/26/2022) Gastroesophageal reflux disease without esophagitis (11/26/2022) ISI (obstructive sleep apnea) (11/26/2022) Acquired hypothyroidism (11/26/2022) Elevated serum creatinine (04/13/2023) Hypoxia (05/25/2023) Post-op pain (05/25/2023) Obesity hypoventilation syndrome (HCC) (05/25/2023) Acute respiratory failure with hypoxia and hypercapnia (HCC) (05/25/2023) Compensated respiratory acidosis (05/26/2023) Hypervolemia (05/26/2023) Acute postoperative respiratory insufficiency (05/27/2023) SUBJECTIVE: No acute issues. Transferred to [facility] yesterday afternoon On CPAP overnight. NC this AM Pain well controlled Denies nausea. Tolerating phase II diet Working with PT. Kidd kept per patient request. Removed this AM OBJECTIVE: BP 125/54 Pulse 61 Temp 36.6 ?C (97.9 ?F) (Axillary) Resp 18 Ht 182.9 cm (6') Wt (!) 270.3 kg (595 lb 14.5 oz) SpO2 90% BMI 80.82 kg/m? Body mass index is 80.82 kg/m?. GENERAL: Alert and oriented, no acute distress, cooperative. CARDIAC: regular rate LUNGS: Non labored breathing ABDOMEN: soft, non tender, non distended. WOUND: incisions clean, dry, and intact Labs: CBC, Coags, BMP, Mg, Phos Recent Labs 05/27/23 0033 05/27/23 0015 05/26/23 0859 05/25/23 2224 WBC 7.11 -- 6.53 8.42 HB 10.2* -- 10.2* 10.4* HCT 34.9* -- 35.2* 34.9* PLT 183 -- 189 192 INR -- -- -- 1.1 APTT -- -- -- 28.2 NA -- 144 144 143 K -- 3.4* 3.5* 3.6* CHLOR -- 95* 97 100 CO2 -- 39* 36* 35* BUN -- 11 11 9 CREAT -- 1.65* 1.59* 1.46* GLUC -- 100* 101* 128* CA -- 8.7 8.5 8.7 MG -- 2.0 2.1 2.1 P -- 2.9 3.1 2.3* Liver Function, Amylase, AND Lipase Recent Labs 05/27/23 0015 05/25/23 2224 TPROT 7.8 7.7 ALB 3.8* 3.9 ALT 14 14 AST 14 15 ALKPHOS 38 43 TBILI 1.8* 1.3 I/O past 24h: Intake/Output Summary (Last 24 hours) at 05/28/2023 0629 Last data filed at 05/28/2023 0114 Gross per 24 hour Intake 960 ml Output 1400 ml Net -440 ml LDA: Lines, Drains, and Airways Line Duration Peripheral 05/23/23 2138 [facility] Right Arm 22 Gauge 4 days Peripheral 05/25/23 0230 Short Left Forearm 20 Gauge 3 days Drain Duration Indwelling Urinary Catheter 05/24/23 1629 [facility] Coude 16 Fr 3 days SURGERY/PROCEDURE: Procedure(s) and Anesthesia Type: * LAPAROSCOPIC GASTRIC RESTRICTIVE SURG W/ BYPASS AND FARRAH-EN-Y 150CM OR LESS - [facility] 05-27-2023 Note HNO ID: [id number] Author: KULWINDER BALL RN Service: Care Management Author Type: Registered Nurse Type: Care Mgt Progress Note Filed: 05/27/2023 15:21 Note Text: CARE MANAGEMENT PROGRESS NOTE SERVICE DATE: 05/27/2023 SERVICE TIME: 3:04 PM LOS: 4 days Needs Prior to Discharge: Home Care Order;Other: See Comment;Discharge Transportation (medical clearance) and accepting home care agency POSSIBLE WEEKEND DISCHARGE Date/Time: TBD pending hospital course, possible weekend Disposition: home care for PT/OT, SN, PROCESSING MGR Transport: Patient confirms that he will arrange DC transport through his insurance Other Concerns: CM met with Mr. Marie at bedside today to review his discharge plan. Patient is agreeable to home care arrangements for home PT/OT and nursing for general assessments. Multiple [facility] referrals have been sent, with no accepting yet. Will need a F2F home care order for PT/OT, nursing, and home health aide, primary service made aware via secure [employer] chat. Patient is active with [facility] for home health aide services, however, they do not provide skilled services. Patient plans to arrange discharge transport through his insurance benefit and ride back home with his friend, Yvon Sol who just had the same surgery as him. Yvon Sol is on m63, and lives in the same apartment building as well. Both Mr. Marie and Yvon Sol have the same medical case manager through the [email or web address] Waiver program, Brigitte Mejia . Brigitte is requesting D/C paperwork/orders when patient is discharged. See below for her contact information. Per primary service, possible weekend discharge. Please communicate with the weekend CM to ensure a home care agency is secured before patient is discharged. If patient remains admitted, CM will continue transition of care planning on Tuesday. Brigitte Mejia RN BSN [employer], [employer] Office Work Cell Email address: [email or web address] Please see Treatment Team for Care Management Weekend/Holiday coverage. SIGNATURE: Kulwinder Ball RN PATIENT NAME: Sherman Marie DATE: May 27, 2023 TIME: 3:04 PM PAGER/CONTACT #: [phone] [facility] 05-27-2023 Note HNO ID: [id number] Author: WHITLEY JUAREZ MD Service: Critical Care Author Type: Resident Type: Progress Notes Filed: 05/27/2023 15:10 Note Text: Attestation signed by Whitley Juarez MD at 05/27/2023 3:10 PM 43yom with morbid obesity, ISI on home BiPAP, asthma, CKD-s/p laparoscopic Farrah-en-Y gastric bypass on 05/24/2023. Surgery: -s/p laparoscopic Farrah-en-Y gastric bypass on 05/24/2023. SICU bipap for hypercarbia Primary: Gen Surg #post operative hypoxic and hypercabic RI suspect 2/2 pulmonary edema and atelectasis in setting of body habitus - 2.8 L negative yesterday on home torsemide however intake is inaccurately charted - he has been drinking liquids freely essentially (more than 110 intake charted) - 2LNC with intermittent desats to mid 80s that resolve with deep breaths - Walking today, OOB to chair which should all help with lung recruitment - Here on bipap 16/8 and 40% tolerating well > lungs diminished but clear, aggressive pulmonary hygiene now that he has had some diuresis. home settings IVAPs epap 7, min ps 6, max pos 20, set rate 15, target mv 5.7 with target vt of 500 #post Farrah en Y - Advancing diet per primary #non oliguric ASHLYN - monitor creatinine, 1.59 > 1.65, will continue oral torsemide despite mild elevation in creatinine today SICU care - no central or arterial line - Dc kidd but continue close I/O monitoring Okay to transfer to [facility], but M63 only SURGICAL ICU STAFF ADDENDUM I have reviewed and verified the recent history and physical examination obtained and documented by the resident physician and I personally participated in the romano components. I have discussed the case and management of the patient's care, exclusive of separately billed procedures which fulfilled the standards for LEVEL 3. SIGNATURE: Whitley Juarez MD DATE: 05/27/2023 TIME: 3:10 PM SERVICE DATE: 05/27/2023 SERVICE TIME: 11:56 AM SURGICAL INTENSIVE CARE UNIT PROGRESS NOTE BRIEF HPI: 43yoM Hx morbid obesity (BMI 82), ISI on home BiPAP, asthma, acquired hypothyroidism, GERD, CKD states baseline Cr ~2 - 1.34 who presented on 05/23 preoperatively to undergo laparoscopic gastric restrictive surgery with bypass and Farrah-en-Y on 05/24. Extubated in PACU and placed on home CPAP device with 4L oxygen. AMET around midnight due to desaturation to high 70s while on CPAP. Reviewed home CPAP - it is a BiPAP machine which automatically aguments IPAP according to his needs. Home setting FiO2 is room air. Also takes torsemide 100mg OD + spironolactone at home for lymphedema + albuterol. Patient was transferred to SICU after second AMET was activated for hypoxia on home BIPAP device. Patient was AANDOx3, denied endorsing dyspnea, chest pain, diaphoresis, new coughs, recent colds. Afebrile. Denied history of DVT/PE, did complain of abdominal fullness postoperative, denied radiation to shoulders. CXR under-penetrated, cannot rule out pulmonary edema. Plan: Continue BiPAP overnight Diuresis with Kidd in situ Start home albuterol Multimodal analgesia - avoid sedating agents 05/26: Net negative 9 L yesterday following IV lasix. Currently on home spironolactone and torsemide. Echo pending. Repeat VBG sent. Ready for floor per surgery 05/27: Doing well. No acute overnight events. Subjective INTERVAL EVENTS: Improved Objective MEDICATIONS: Current medications and allergies reviewed. Recommended/planned medication changes discussed in detail in the A/P section below. Please refer to [facility] for list of inpatient medications. VITAL SIGNS: BP 113/89 Pulse 73 Temp 36.8 ?C (98.2 ?F) (Oral) Resp 24 Ht 182.9 cm (6') Wt (!) 270.3 kg (595 lb 14.5 oz) SpO2 95% BMI 80.82 kg/m? Current Weight: Weight: (!) 270.3 kg (595 lb 14.5 oz) Admission Weight: Weight: (!) 275.2 kg (606 lb 12.8 oz) PHYSICAL EXAMINATION: General appearance: No acute distress Skin: No rashes or lesions. Head: Normocephalic Neck: No visible goiter Lungs: Unlabored respiration. Nasal cannula. Heart: RRR Abdomen: Non distended Extremities: Chronic lymphedema. Musculoskeletal: No joint swelling or deformity Neuro: No focal deficits DATA: Diagnostic tests reviewed for today's visit: Most recent labs and imaging results. ICU Checklist Last Documented/Reviewed time: 05/27/2023 8:36 AM A= Assess, Prevent, Manage Pain Pain adequately controlled?: Yes C= Choice of Sedation and Analgesia RASS at Goal?: Yes B= Both Spontaneous Awakening and Breathing Trials Ventilator: None (Comment: BiPAP) D= Delirium: Assess, Prevent and Manage ICU Delirium Status: CAM Negative - no action required Sleep adequate?: Yes (more content not included)... [facility] 05-27-2023 Note HNO ID: [id number] Author: DORIS ALBERTO MD Service: General Surgery Author Type: Resident Type: Progress Notes Filed: 05/27/2023 10:20 Note Text: GENERAL SURGERY PROGRESS NOTE Sherman Marie [id number] ASSESSMENT AND PLAN 43M h/o hypothyroidism, ISI (on CPAP), lymphedema (on spironolactone and lasix), BMI 86.4, now s/p laparoscopic RYGB (05/24/2023). Initiated ion BiPAP in PACU for respiratory insuffiencey and admitted to the [facility] post-operatively. Overnight, hypoxic on CPAP requiring re-initiation of BiPAP and transfer to SICU. Plan - Respiratory support for ICU. CPAP/BiPAP HS - Pulmonology consulted, appreciate recs. Will re-engage to discuss ensuring BiPAP on the floor - Continue home torsemide - HOB 60 degress. - Pain control - Phase II diet. SLIV - Discontinue Kidd catheter - IV Fe - Lovenox 60 BID - Ambulation. PT Dispo: Okay to transfer to [facility], but M63 only Doris Alberto M.D. General Surgery PGY2 [phone] Pager: [phone] Patient Active Hospital Problem List: Class 3 severe obesity with serious comorbidity and body mass index (BMI) greater than or equal to 70 in adult, unspecified obesity type (HCC) (05/23/2023) Morbid obesity (HCC) (10/25/2022) Lymphedema (10/25/2022) Limited mobility (10/25/2022) BMI 70 and over, adult (HCC) (11/26/2022) Gastroesophageal reflux disease without esophagitis (11/26/2022) ISI (obstructive sleep apnea) (11/26/2022) Acquired hypothyroidism (11/26/2022) Elevated serum creatinine (04/13/2023) Hypoxia (05/25/2023) Post-op pain (05/25/2023) Obesity hypoventilation syndrome (HCC) (05/25/2023) Acute respiratory failure with hypoxia and hypercapnia (HCC) (05/25/2023) Compensated respiratory acidosis (05/26/2023) Hypervolemia (05/26/2023) SUBJECTIVE: No acute issues On BiPAP/CPAP overnight Endorses some abdominal pain, but improving Denies nausea. Tolerating phase II diet Working with PT. Up to chair yesterday OBJECTIVE: BP 118/64 Pulse 85 Temp 36.8 ?C (98.2 ?F) (Oral) Resp 24 Ht 182.9 cm (6') Wt (!) 270.3 kg (595 lb 14.5 oz) SpO2 96% BMI 80.82 kg/m? Body mass index is 80.82 kg/m?. GENERAL: Alert and oriented, no acute distress, cooperative. CARDIAC: regular rate LUNGS: Non labored breathing ABDOMEN: soft, non tender, non distended. WOUND: incisions clean, dry, and intact Labs: CBC, Coags, BMP, Mg, Phos Recent Labs 05/27/23 0033 05/27/23 0015 05/26/23 0859 05/25/23222305/25/23 043 WBC 7.11 -- 6.53 8.42 -- HB 10.2* -- 10.2* 10.4* -- HCT 34.9* -- 35.2* 34.9* -- PLT 183 -- 189 192 -- INR -- -- -- 1.1 1.1 APTT -- -- -- 28.2 28.3 NA -- 144 144 143 142 K -- 3.4* 3.5* 3.6* 4.5 CHLOR -- 95* 97 100 106* CO2 -- 39* 36* 35* 26 BUN -- 11 11 9 8* CREAT -- 1.65* 1.59* 1.46* 1.14 GLUC -- 100* 101* 128* 131* CA -- 8.7 8.5 8.7 8.2* MG -- 2.0 2.1 2.1 -- P -- 2.9 3.1 2.3* -- Liver Function, Amylase, AND Lipase Recent Labs 05/27/23 0015 05/25/23222305/25/23 043 TPROT 7.8 7.7 6.5 ALB 3.8* 3.9 3.2* ALT 14 14 12 AST 14 15 16 ALKPHOS 38 43 37* TBILI 1.8* 1.3 1.1 I/O past 24h: Intake/Output Summary (Last 24 hours) at 05/27/2023 1006 Last data filed at 05/27/2023 0700 Gross per 24 hour Intake 101 ml Output 2240 ml Net -2139 ml LDA: Lines, Drains, and Airways Line Duration Peripheral 05/23/23 2138 [facility] Right Arm 22 Gauge 3 days Peripheral 05/25/23 0230 Short Left Forearm 20 Gauge 2 days Drain Duration Indwelling Urinary Catheter 05/24/23 1629 [facility] Coude 16 Fr 2 days SURGERY/PROCEDURE: Procedure(s) and Anesthesia Type: * LAPAROSCOPIC GASTRIC RESTRICTIVE SURG W/ BYPASS AND FARRAH-EN-Y 150CM OR LESS - General [facility] 05-26-2023 Note HNO ID: [id number] Author: WHITLEY JUAREZ MD Service: Critical Care Author Type: Resident Type: Progress Notes Filed: 05/26/2023 16:50 Note Text: Attestation signed by Whitley Juarez MD at 05/26/2023 4:50 PM (Updated) SURGICAL ICU STAFF ADDENDUM I have reviewed and verified the recent history and physical examination obtained and documented by the resident physician and I personally participated in the romano components. I have discussed the case and management of the patient's care, exclusive of separately billed procedures which fulfilled the standards for LEVEL 2. 43yoM morbid obesity on home NIMV, with hypoTH, GERD, CKD. Surgery: -s/p laparoscopic Farrah-en-Y gastric bypass on 05/24/2023. SICU bipap for hypercarbia Primary: Gen Surg -ASHLYN Cr trending up to 1.59 from 1.14 yesterday (baseline 1.2?) -respiratory acidosis > compensating, 2/2 obesity hypoventilation and fluid overload, continue NIMV overnight and while napping -neg 6L yesterday, on home torsemide 100mg daily starting today-> net negative goal 1-2L, lasix to supplement -no BM since 05/24 but will double checkok BR with primary -normoglycemic Okay to transfer to [facility], but M63 only SIGNATURE: Whitley Juarez MD DATE: 05/26/2023 TIME: 4:50 PM SERVICE DATE: 05/26/2023 SERVICE TIME: 1:26 PM SURGICAL INTENSIVE CARE UNIT PROGRESS NOTE BRIEF HPI: 43yoM Hx morbid obesity (BMI 82), ISI on home BiPAP, asthma, acquired hypothyroidism, GERD, CKD states baseline Cr ~2 - 1.34 who presented on 05/23 preoperatively to undergo laparoscopic gastric restrictive surgery with bypass and Farrah-en-Y on 05/24. Extubated in PACU and placed on home CPAP device with 4L oxygen. AMET around midnight due to desaturation to high 70s while on CPAP. Reviewed home CPAP - it is a BiPAP machine which automatically aguments IPAP according to his needs. Home setting FiO2 is room air. Also takes torsemide 100mg OD + spironolactone at home for lymphedema + albuterol. Patient was transferred to SICU after second AMET was activated for hypoxia on home BIPAP device. Patient was AANDOx3, denied endorsing dyspnea, chest pain, diaphoresis, new coughs, recent colds. Afebrile. Denied history of DVT/PE, did complain of abdominal fullness postoperative, denied radiation to shoulders. CXR under-penetrated, cannot rule out pulmonary edema. Plan: Continue BiPAP overnight Diuresis with Kidd in situ Start home albuterol Multimodal analgesia - avoid sedating agents 05/26: Net negative 9 L yesterday following IV lasix. Currently on home spironolactone and torsemide. Echo pending. Repeat VBG sent. Ready for floor per surgery Subjective INTERVAL EVENTS: Improved Objective MEDICATIONS: Current medications and allergies reviewed. Recommended/planned medication changes discussed in detail in the A/P section below. Please refer to [facility] for list of inpatient medications. VITAL SIGNS: BP 144/69 Pulse 73 Temp 36.9 ?C (98.4 ?F) (Oral) Resp 22 Ht 182.9 cm (6') Wt (!) 271.2 kg (597 lb 14.2 oz) SpO2 95% BMI 81.09 kg/m? Current Weight: Weight: (!) 271.2 kg (597 lb 14.2 oz) Admission Weight: Weight: (!) 275.2 kg (606 lb 12.8 oz) Physical Exam Constitutional: General: He is not in acute distress. Cardiovascular: Rate and Rhythm: Normal rate and regular rhythm. Pulmonary: Breath sounds: No wheezing or rhonchi. Comments: Diminished breath sounds bilaterally Abdominal: General: There is no distension. Musculoskeletal: Comments: Chronic lymphedema No pitting edema present Skin: General: Skin is warm and dry. Neurological: Mental Status: He is alert. DATA: Diagnostic tests reviewed for today's visit: Most recent labs and imaging results. ICU Checklist Last Documented/Reviewed time: 05/26/2023 1:11 PM A= Assess, Prevent, Manage Pain Pain adequately controlled?: Yes C= Choice of Sedation and Analgesia RASS at Goal?: Yes B= Both Spontaneous Awakening and Breathing Trials Ventilator: None (Comment: BiPAP) D= Delirium: Assess, Prevent and Manage ICU Delirium Status: CAM Negative - no action required Sleep adequate?: Yes Restraint Status: None E= Early Mobility/Excercise ICU Mobility: ICU Mobility-Pt Has Been Out of Bed: PT/OT Consults Ordered (Comment: PM of POD#1 - will work with PT/OT) F= Family Engagement and Empowerment ICU plan of care visit at bedside in last 24 hours: Yes, Provider, RN, Patient/ designee ICU Disposition: ICU Disposition- Is Patient Clinically Ready to Transfer to [facility] or SDU?: Yes, transfer to SDU or [facility] today Discharge Planning: To be determined Prevention: Line Status: None Kidd Status: Present, will (more content not included)... [facility] 05-26-2023 Note HNO ID: [id number] Author: DORIS ALBERTO MD Service: General Surgery Author Type: Resident Type: Progress Notes Filed: 05/26/2023 08:07 Note Text: GENERAL SURGERY PROGRESS NOTE Sherman Marie [id number] ASSESSMENT AND PLAN 43M h/o hypothyroidism, ISI (on CPAP), lymphedema (on spironolactone and lasix), BMI 86.4, now s/p laparoscopic RYGB (05/24/2023). Initiated ion BiPAP in PACU for respiratory insuffiencey and admitted to the [facility] post-operatively. Overnight, hypoxic on CPAP requiring re-initiation of BiPAP and transfer to SICU. Plan - Respiratory support for ICU. CPAP/BiPAP HS - Pulmonology consulted, appreciate recs - Continue home torsemide - HOB 60 degress. - Pain control - Phase II diet. SLIV - Continue Kidd catheter for diuresis - Ambulation. PT Dispo: Okay to transfer to [facility], but M63 only Doris Alberto M.D. General Surgery PGY2 [phone] Pager: [phone] Patient Active Hospital Problem List: Class 3 severe obesity with serious comorbidity and body mass index (BMI) greater than or equal to 70 in adult, unspecified obesity type (HCC) (05/23/2023) Morbid obesity (HCC) (10/25/2022) Lymphedema (10/25/2022) Limited mobility (10/25/2022) BMI 70 and over, adult (HCC) (11/26/2022) Gastroesophageal reflux disease without esophagitis (11/26/2022) ISI (obstructive sleep apnea) (11/26/2022) Acquired hypothyroidism (11/26/2022) Elevated serum creatinine (04/13/2023) Hypoxia (05/25/2023) Post-op pain (05/25/2023) SUBJECTIVE: Weaned off BiPAP yesterday, on NC. Back on BiPAP overnight Restarted home torsemide yesterday Repeat CXR yesterday improved Endorses some abdominal pain Denies nausea OBJECTIVE: BP 138/65 Pulse 77 Temp 36.8 ?C (98.2 ?F) (Axillary) Resp 15 Ht 182.9 cm (6') Wt (!) 289 kg (637 lb 2.1 oz) SpO2 98% BMI 86.41 kg/m? Body mass index is 86.41 kg/m?. GENERAL: Alert and oriented, no acute distress, cooperative. CARDIAC: regular rate LUNGS: Non labored breathing ABDOMEN: soft, non tender, non distended. WOUND: incisions clean, dry, and intact Labs: CBC, Coags, BMP, Mg, Phos Recent Labs 05/25/23222305/25/2343105/25/23 0214 05/23/23 1318 WBC 8.42 -- 10.56 6.27 HB 10.4* -- 10.3* 11.5* HCT 34.9* -- 34.1* 38.8* PLT 192 -- 185 222 INR 1.1 1.1 -- -- APTT 28.2 28.3 -- -- NA 143 142 139 139 K 3.6* 4.5 4.7 4.1 CHLOR 100 106* 103 101 CO2 35* 26 24 28 BUN 9 8* 10 12 CREAT 1.46* 1.14 1.25* 1.34* GLUC 128* 131* 141* 113* CA 8.7 8.2* 8.2* 9.2 MG 2.1 -- 2.3 -- P 2.3* -- 3.4 2.4* Liver Function, Amylase, AND Lipase Recent Labs 05/25/23222305/25/23 0432 05/23/23 1318 TPROT 7.7 6.5 8.5* ALB 3.9 3.2* 4.1 ALT 14 12 10 AST 15 16 14 ALKPHOS 43 37* 54 TBILI 1.3 1.1 2.0* I/O past 24h: Intake/Output Summary (Last 24 hours) at 05/25/2023 1723 Last data filed at 05/25/2023 1557 Gross per 24 hour Intake 73.8 ml Output 5140 ml Net -5066.2 ml LDA: Lines, Drains, and Airways Line Duration Peripheral 05/23/23 2138 [facility] Right Arm 22 Gauge 1 day Peripheral 05/24/23 0830 Left Hand 18 Gauge 1 day Peripheral 05/25/23 0230 Short Left Forearm 20 Gauge <1 day Drain Duration Indwelling Urinary Catheter 05/24/23 1629 [facility] Coude 16 Fr 1 day SURGERY/PROCEDURE: Procedure(s) and Anesthesia Type: * LAPAROSCOPIC GASTRIC RESTRICTIVE SURG W/ BYPASS AND FARRAH-EN-Y 150CM OR LESS - General [facility] 05-25-2023 Note HNO ID: [id number] Author: KULWINDER BALL RN Service: Care Management Author Type: Registered Nurse Type: Care Mgt Initial Assessment Filed: 05/25/2023 15:21 Note Text: CARE MANAGEMENT: ASSESSMENT AND DISCHARGE PLAN SERVICE DATE: May 25, 2023 SERVICE TIME: 2:37 PM PCP: Kishor Snyder PA-C Primary Contact: Extended Emergency Contact Information Primary Emergency Contact: LOUIS MARIE Mobile Relation: Relative Secondary Emergency Contact: Saeid Marie Mobile Relation: Relative Preferred language: MONGOLIAN Admission Status: Inpatient Insurance Provider: [employer] MEDICAID [facility] Discharge Planning requested by: Per Department Practice Potential Transition Plans To Be Determined;Home Advance Directives Current Advance Directive: None Recreation Aide Attempted to Assist with AD Completion: Yes Action: Education Provided Current Living Arrangements and Support Lives with: Alone Type of Residence: Private Residence (Apartment or Condo) Does the patient have to climb stairs at home?: No Support: Family members, Friends/neighbors How do you manage to accomplish the following: Independent: Ambulation;Bathe/Shower;Dress;Me als/Meal Prep;Going to the bathroom;Medication Management Needs Assistance: Transportation to appointments/community Current Services/Equipment Current Post-Acute Service(s): DME Current DME Type: Continuous Positive Airway Pressure Discharge Planning Patient Goal(s): General wellness, Be able to go home Hammond of Choice Explained: Hammond of Choice Given: Yes Reason Not Given: No placements necessary Level of Care Discussed: Home Care Are you interested in bedside delivery of your medications? Yes Discharge Planning Participant(s): Patient Patient/Family Comments: Caregiver Assessment: Caregiver is ready, willing and able to meet the patient's needs as recommended by the inter-professional team: No Caregiver needed Transport at Discharge: Transportation Arrangements: To Be Determined Needs Prior to Discharge: Needs Prior to Discharge: To Be Determined;OT/PT Evaluation Post-Acute Discharge Plan: Per EMR, 43M h/o hypothyroidism, ISI (on CPAP), lymphedema (on spironolactone and lasix), BMI 86.4, now s/p laparoscopic RYGB (05/24/2023). Initiated ion BiPAP in PACU for respiratory insuffiencey and admitted to the [facility] post-operatively. Overnight, hypoxic on CPAP requiring re-initiation of BiPAP and transfer to SICU. CM met with patient at the bedside today. Introduced myself and explained my role as the CM. Patient was alert and oriented and willing to participate in CM assessment. Mr. Marie tells CM that he lives alone in an apartment located in [place], [place] (about two hours away from [facility] [address] [place]). Patient does not drive and depends on transportation services. Patient has CPAP at home for ISI (through [facility]). Patient is active with [facility] services for a home health aide at home. He cannot recall the [facility] agency name, but thinks it may be [facility] or a similar name. Mr. Marie has lymphadema and notes difficulty ambulating long distances. Will await PT/OT recommendations to help guide discharge plans. Skilled needs and final dispo are TBD pending course of hospitalization. Mr. Marie is agreeable to completing a HCPOA, listing his cousin Janessa Marie as primary agent [phone] . Mr. Marie does not want a 1st or 2nd alternative person listed. [facility] has been tasked to assist patient with completing HCPOA. Mr. Marie states that he would be agreeable to home care services for skilled care if needed and would not have a [facility] agency preference. Patient may need assistance with discharge transportation. CM will continue to follow this patient for transition of care/discharge planning. SIGNATURE: Kulwinder Ball RN PATIENT NAME: Sherman Marie DATE: May 25, 2023 TIME: 2:37 PM CONTACT #: [phone] [facility] 05-25-2023 Note HNO ID: [id number] Author: DORIS ALBERTO MD Service: General Surgery Author Type: Resident Type: Progress Notes Filed: 05/25/2023 09:29 Note Text: GENERAL SURGERY PROGRESS NOTE Sherman Marie [id number] ASSESSMENT AND PLAN 43M h/o hypothyroidism, ISI (on CPAP), lymphedema (on spironolactone and lasix), BMI 86.4, now s/p laparoscopic RYGB (05/24/2023). Initiated ion BiPAP in PACU for respiratory insuffiencey and admitted to the [facility] post-operatively. Overnight, hypoxic on CPAP requiring re-initiation of BiPAP and transfer to SICU. Plan - Respiratory support for ICU - Pulmonology consult - Likely would benefit from additional diuresis. Discussed with ICU - HOB 60 degress. - Pain control - Keep NPO. SLIV - Continue Kidd catheter for diuresis - Ambulation. PT Dispo: ICU Doris Alberto M.D. General Surgery PGY2 [phone] Pager: [phone] Patient Active Hospital Problem List: Class 3 severe obesity with serious comorbidity and body mass index (BMI) greater than or equal to 70 in adult, unspecified obesity type (HCC) (05/23/2023) Morbid obesity (HCC) (10/25/2022) Lymphedema (10/25/2022) Limited mobility (10/25/2022) BMI 70 and over, adult (HCC) (11/26/2022) Gastroesophageal reflux disease without esophagitis (11/26/2022) ISI (obstructive sleep apnea) (11/26/2022) Acquired hypothyroidism (11/26/2022) Elevated serum creatinine (04/13/2023) Hypoxia (05/25/2023) Post-op pain (05/25/2023) SUBJECTIVE: Transferred to SICU overnight for BiPAP Was desaturating on CPAP overnight Remains on BiPAP this AM - 18/7, 40% FiO2 Given 40mg IV Lasix overnight, UOP 3.1L overnight CXR this morning with bilateral pulmonary edema Endorses some abdominal pain Denies nausea OBJECTIVE: BP 117/57 Pulse 79 Temp 36.9 ?C (98.4 ?F) (Oral) Resp 20 Ht 182.9 cm (6') Wt (!) 289 kg (637 lb 2.1 oz) SpO2 99% BMI 86.41 kg/m? Body mass index is 86.41 kg/m?. GENERAL: Alert and oriented, no acute distress, cooperative. CARDIAC: regular rate LUNGS: Non labored breathing ABDOMEN: soft, non tender, non distended. WOUND: incisions clean, dry, and intact Labs: CBC, Coags, BMP, Mg, Phos Recent Labs 05/25/23 0432 05/25/23 0214 05/23/23 1318 WBC -- 10.56 6.27 HB -- 10.3* 11.5* HCT -- 34.1* 38.8* PLT -- 185 222 INR 1.1 -- -- APTT 28.3 -- -- NA 142 139 139 K 4.5 4.7 4.1 CHLOR 106* 103 101 CO2 26 24 28 BUN 8* 10 12 CREAT 1.14 1.25* 1.34* GLUC 131* 141* 113* CA 8.2* 8.2* 9.2 MG -- 2.3 -- P -- 3.4 2.4* Liver Function, Amylase, AND Lipase Recent Labs 05/25/23 0432 05/23/23 1318 TPROT 6.5 8.5* ALB 3.2* 4.1 ALT 12 10 AST 16 14 ALKPHOS 37* 54 TBILI 1.1 2.0* I/O past 24h: Intake/Output Summary (Last 24 hours) at 05/25/2023 0918 Last data filed at 05/25/2023 0900 Gross per 24 hour Intake 2132.8 ml Output 4220 ml Net -2087.2 ml LDA: Lines, Drains, and Airways Line Duration Peripheral 05/23/23 2138 [facility] Right Arm 22 Gauge 1 day Peripheral 05/24/23 0830 Left Hand 18 Gauge 1 day Peripheral 05/25/23 0230 Short Left Forearm 20 Gauge <1 day Drain Duration Indwelling Urinary Catheter 05/24/23 1629 [facility] Coude 16 Fr <1 day SURGERY/PROCEDURE: Procedure(s) and Anesthesia Type: * LAPAROSCOPIC GASTRIC RESTRICTIVE SURG W/ BYPASS AND FARRAH-EN-Y 150CM OR LESS - General [facility] 05-25-2023 Note HNO ID: [id number] Author: MARY MAYFIELD MD Service: Critical Care Author Type: Fellow Type: Progress Notes Filed: 05/25/2023 05:56 Note Text: Attestation signed by Mary Mayfield MD at 05/25/2023 5:56 AM SURGICAL ICU STAFF ADDENDUM This patient has a high probability of sudden, clinically significant deterioration, which requires the highest level of physician preparedness to intervene urgently. I managed/ supervised life or organ supporting interventions that required frequent physician assessment. I devoted my full attention to the direct care of this patient, including physical examination, verifying findings with the resident physician, reviewing labs and imaging, discussing with primary physician and consultants, and developing a plan of care with the bedside nurse for the amount of time indicated below. Critical Care Documentation: The patient has the following organ/system impairment(s): respiratory, GI Time spent providing critical care services: 39 minutes. The time excludes any associated procedures which will be documented and billed separately. Patient with morbid obesity, ISI on home BiPAP, asthma, CKD-s/p laparoscopic Farrah-en-Y gastric bypass on 05/24/2023. Patient transferred to SICU after second AMET was activated for hypoxia on home BiPAP device, placed on ICU BiPAP on transfer. VBG suggestive of acute on chronic respiratory acidosis Serial VBG with improvement in oxygenation Chest x-ray suggestive of hypoventilation, +/- pulmonary edema Other labs suggestive of CKD, mild anemia Plan - Post Farrah-en-Y gastric bypass- Multimodal pain control, avoid sedating agents. N.p.o. Acute postop respiratory insufficiency -acute hypoxia with chronic respiratory acidosis -continue home BiPAP when napping/at night. Aggressive bronchopulmonary hygiene, 2 doses of Lasix (patient is on home diuretics), OOB As needed DuoNebs. Goal SpO2 over 88%, wean O2 as able SQH, PPI, SCD, PT/OT SIGNATURE: Mary Krueger MD DATE: 05/25/2023 TIME: 5:47 AM SERVICE DATE: 05/25/2023 SERVICE TIME: 2:23 AM SICU HANDP NOTE HPI: 43yoM Hx morbid obesity (BMI 82), ISI on home BiPAP, asthma, acquired hypothyroidism, GERD, CKD states baseline Cr ~2 - 1.34 this admission. Extubated in PACU and placed on home CPAP device with 4L oxygen. AMET around midnight due to desaturation to high 70s while on CPAP. Reviewed home CPAP - it is a BiPAP machine which automatically aguments IPAP according to his needs. Home setting FiO2 is room air. Also takes torsemide 100mg OD + spironolactone at home for lymphedema + albuterol. Patient was AANDOx3, denied endorsing dyspnea, chest pain, diaphoresis, new coughs, recent colds. Afebrile. Denied history of DVT/PE, did complain of abdominal fullness postoperative, denied radiation to shoulders. CXR under-penetrated, cannot rule out pulmonary edema. Plan: Continue BiPAP overnight Diuresis with Kidd in situ Start home albuterol Multimodal analgesia - avoid sedating agents Subjective PAST MEDICAL HISTORY Diagnosis Date - Acquired hypothyroidism 11/26/2022 - BMI 70 and over, adult (HCC) 11/26/2022 - Gastroesophageal reflux disease without esophagitis 11/26/2022 - Lymphedema 10/25/2022 - ISI (obstructive sleep apnea) 11/26/2022 PAST SURGICAL HISTORY Procedure Laterality Date - REMOVAL GALLBLADDER FAMILY HISTORY Problem Relation Age of Onset - Anesthesia Problems No Family History Social History Occupational History Not on file Tobacco Use Smoking status: Never Smokeless tobacco: Never Vaping Use Vaping Use: Never used Substance and Sexual Activity Alcohol use: Not Currently Drug use: Never Sexual activity: Not on file ALLERGIES Allergen Reactions - Lactose Other: See Comments - Sulfa (Sulfonamide * Itching - Vancomycin Itching PRIOR TO ADMISSION MEDICATIONS: cholecalciferol, Vitamin D3, (VITAMIN D3) 1,250 mcg (50,000 unit) cap capsule, Take 1 capsule by mouth one time a week. Afterwards take 2000 units over the counter daily, Disp: 8 capsule, Rfl: 0 levothyroxine (SYNTHROID) 125 mcg tablet, , Disp: , Rfl: torsemide (DEMADEX) 100 mg tablet, Take 100 mg by mouth once daily., Disp: , Rfl: spironolactone (ALDACTONE) 25 mg tablet, Take 25 mg by mouth once daily., Disp: , Rfl: famotidine (PEPCID) 40 mg tablet, , Disp: , Rfl: traMADol (ULTRAM) 50 mg tablet, Take 50 mg by mouth every 8 hours as needed for pain., Disp: , Rfl: REVIEW OF SYSTEMS: PAIN ASSESSMENT: CURRENTLY HAVING PAIN; see HPI GENERAL: No weight loss, malaise or fevers RESPIRATORY: denies dyspnea, cough, colds CARDIOVASCULAR: bilateral lower extremity lymphedema, denies palpitations/chest pain/nausea/diaphoresis GI: No nausea, vomiting, or diarrhea : No history of (more content not included)... [facility] 05-24-2023 Note HNO ID: [id number] Author: ABDIAZIZ CASILLAS, Mariann Service: Pharmacy Author Type: Administrative Services Manager Type: Plan of Care Filed: 05/24/2023 18:19 Note Text: Insurance investigation completed Patient has active prescription insurance: Yes - Patient's insurance is in-network with [facility] Insurance loaded into [place]: Yes Test claim was completed to verify insurance is active: Successful Any questions, please contact your medication electrical accessories assembler. Pager #: [phone] [facility] 05-24-2023 Note HNO ID: [id number] Author: NILDA UPTON APRN.CRNA Service: ? Author Type: Nurse Ginseng Farmer Type: Anesthesia Procedure Notes Filed: 05/24/2023 09:06 Note Text: ANESTHESIOLOGY PROCEDURE NOTE PIV General Information Procedure Start Time/Medication Administration: 05/24/2023 8:30 AM Patient Location: OR Staffing Anesthesiologist: Cecy Valadez MD, PhD Performed by: anesthesiologist Preparation Sterility Preparation: hand hygiene performed prior to procedure, skin prep agent completely dried prior to procedure Site Prep: alcohol Procedure Details Indication: need for IV access Needle Size/Type: 18 gauge angiocath Orientation: Left Location: Hand Imaging Guidance Used: No SIGNATURE: Nilda Upton APRN.CRNA PATIENT NAME: Sherman Marie DATE: May 24, 2023 TIME: 9:06 AM CSN: [id number] [facility] 05-24-2023 Note HNO ID: [id number] Author: NILDA UPTON APRN.CRNA Service: ? Author Type: Nurse Ginseng Farmer Type: Anesthesia Procedure Notes Filed: 05/24/2023 09:05 Note Text: ANESTHESIOLOGY PROCEDURE NOTE Airway General Information Procedure Start Time/Medication Administration: 05/24/2023 7:52 AM Timeout Performed Pre-procedure: timeout performed Consent Obtained: Yes Patient identity confirmed: arm band and patient Staffing PERSONALIZED LIVING MANAGER NURSE: Nilda Upton APRN.PERSONALIZED LIVING MANAGER NURSE Performed by: PAULINO Indications and Patient Condition Indications for airway management: anesthesia Preoxygenated: yes anesthesia circuit Patient position: ramp and reverse Trendelenburg Method: asleep Cricoid Pressure: No Manual In-Line Stabilization: No Difficult Mask: No Airway Accessory: oral airway (oral airway plus two handed ventilation adequate) Final Airway Details Final airway type: endotracheal airway Final Endotracheal Airway: ETT Cuffed: yes Successful intubation technique: video laryngoscopy Devices used: Glidescope and intubating stylet Endotracheal tube insertion site: oral Blade type: LoPro S4. Blade size: #4 ETT size (mm): 8.5 Measured from: lips Measurement (cm): 23 Placement verified by: chest auscultation and capnometry Cormack-Lehane Classification: grade I - full view of glottis Number of attempts at approach: 2 Failed airway: no Unrecognized esophageal intubation: no Airway not difficult Comments Pt induced and intubation attempt performed by PERSONALIZED LIVING MANAGER NURSE with glidescope. Grade 1 view achieved and 8.0 Onofre tube inserted. After a few minutes leak noted and ETT cuff not maintaining air. Probable cuff damage resulted in use of bougie to do ETT exchange. Glidescope used to visualize new ETT passing through vocal cords. New 8.5 ETT placed with working cuff and secured at 23 ELEN. SIGNATURE: Nilda Upton APRN.CRNA PATIENT NAME: Sherman Marie DATE: May 24, 2023 TIME: 9:00 AM CSN: [id number] [facility] 05-24-2023 Note HNO ID: [id number] Author: MICHAEL ENCISO MD Service: ? Author Type: Physician Type: Plan of Care Filed: 05/24/2023 08:14 Note Text: Given patient's size and comorbidities, this high-risk patient may require going to the ICU after bariatric surgery for monitoring and care. That should be considered as planned (not unplanned) ICU admission. Michael Enciso MD [facility] 05-24-2023 Note HNO ID: [id number] Author: DORIS ALBERTO MD Service: General Surgery Author Type: Resident Type: Progress Notes Filed: 05/24/2023 16:27 Note Text: GENERAL SURGERY PROGRESS NOTE Sherman Marie [id number] ASSESSMENT AND PLAN 43M h/o hypothyroidism, ISI (on CPAP), lymphedema (on spironolactone and lasix), BMI 86.4, here pre-operatively for sleeve gastrectomy on 05/24/2023 Plan - Plan for surgery today. Consented. Pre-op orders in - May need ICU after surgery - NPO. mI Doris Alberto M.D. General Surgery PGY2 [phone] Pager: [phone] Patient Active Hospital Problem List: No active hospital problems. SUBJECTIVE: No acute issues OBJECTIVE: BP 142/67 Pulse 97 Temp 36.3 ?C (97.3 ?F) (Temporal Artery) Resp 20 Ht 182.9 cm (6') Wt (!) 276.3 kg (609 lb 1.6 oz) SpO2 94% BMI 82.61 kg/m? Body mass index is 82.61 kg/m?. GENERAL: Alert and oriented, no acute distress, cooperative. CARDIAC: regular rate LUNGS: Non labored breathing ABDOMEN: soft, non tender, non distended. Labs: CBC, Coags, BMP, Mg, Phos Recent Labs 05/23/23 1318 WBC 6.27 HB 11.5* HCT 38.8* PLT 222 NA 139 K 4.1 CHLOR 101 CO2 28 BUN 12 CREAT 1.34* GLUC 113* CA 9.2 P 2.4* Liver Function, Amylase, AND Lipase Recent Labs 05/23/23 1318 TPROT 8.5* ALB 4.1 ALT 10 AST 14 ALKPHOS 54 TBILI 2.0* I/O past 24h: Intake/Output Summary (Last 24 hours) at 05/24/2023 1625 Last data filed at 05/24/2023 1228 Gross per 24 hour Intake 2620 ml Output -- Net 2620 ml LDA: Lines, Drains, and Airways Line Duration Peripheral 05/23/23 2138 [facility] Right Arm 22 Gauge <1 day Peripheral 05/24/23 0830 Left Hand 18 Gauge <1 day SURGERY/PROCEDURE: Procedure(s) and Anesthesia Type: * LAPAROSCOPIC GASTRIC RESTRICTIVE SURG W/ BYPASS AND FARRAH-EN-Y 150CM OR LESS - General [facility] 05-23-2023 History of Past i llness Narrative Problem Noted Date Diagnosed Date Resolved Date Class 3 severe obesity with serious comorbidity and body mass index (BMI) greater than or equal to 70 in adult, unspecified obesity type 05/23/2023 05/24/2023 documented as of this encounter (statuses as of 05/31/2023) [facility]01-29-2024 History of Past illness Narrative* Problem Noted Date Diagnosed Date Resolved Date Class 3 severe obesity with serious comorbidity and body mass index (BMI) greater than or equal to 70 in adult, unspecified obesity type 05/23/2023 05/24/2023 documented as of this encounter (statuses as of 06/01/2023) [facility] History of Past illness Narrative* Problem Noted Date Diagnosed Date Resolved Date Class 3 severe obesity with serious comorbidity and body mass index (BMI) greater than or equal to 70 in adult, unspecified obesity type 05/23/2023 05/24/2023 documented as of this encounter (statuses as of 06/01/2023) [facility] History of Past illness Narrative* Problem Noted Date Diagnosed Date Resolved Date Class 3 severe obesity with serious comorbidity and body mass index (BMI) greater than or equal to 70 in adult, unspecified obesity type 05/23/2023 05/24/2023 documented as of this encounter (statuses as of 06/02/2023) [facility] History of Past illness Narrative* Problem Noted Date Diagnosed Date Resolved Date Class 3 severe obesity with serious comorbidity and body mass index (BMI) greater than or equal to 70 in adult, unspecified obesity type 05/23/2023 05/24/2023 documented as of this encounter (statuses as of 06/07/2023) [facility]01-18-2024 NoteHNO ID: [id number] Author: RUPESH NOVA RD Service: ? Author Type: Registered Dietitian Type: Progress Notes Filed: 05/12/2023 14:23 Note Text: I have communicated my name and active licensure. The patient's identity and physical location were verified at the time of this visit. Either the patient or their legal outside sales account representative has been informed of the risks and benefits of -- and alternatives to -- treatment through a remote evaluation and consents to proceed with the evaluation remotely. TOPIC: LIFE STYLE CHANGES: Pre-op weight loss surgery (LSG): Diet and Exercise Nutrition Intervention 05/12/2023: Instructions for Liquid Diet before surgery 1. Start the partial liquid protein plan 3 weeks prior to surgery Breakfast: Protein shake and fruit/vegetable Lunch: Protein shake and fruit/vegetable Dinner: 4 oz lean meat/fish, vegetables, fruit and up to 1c starch/whole grains Snack: < 150 calories 1x per day (should contain protein) - Other clear liquids you can include: clear broth, sugar free jello or popsicles, decaffeinated coffee or tea, no sugar added flavoring packets such as Crystal Lite - Take a Super B Complex vitamin (75-100 mg of Thiamin) daily during the liquid diet 2. Day before surgery: - Finish your last protein shake before 6 pm - Drink at least 64 oz of fluid per day (no calories, no caffeine, no carbonation) - Drink 28-32 fl oz of regular sports drink (Gatorade, Powerade, etc.) 3. Day of surgery: - Drink 12-20 fl oz of regular sports drink - Stop drinking liquids 2 hours before scheduled arrival time 4. Advance diet as tolerated after surgery: - Phase 1- Clear liquids (only in the hospital) - Phase 2- Full liquids. Try to consume at least 60 grams of protein per day in the form of a liquid, high protein shake. Aim to drink 4-8 fl oz of protein shake 3 times per day. Try to drink at least 64 oz per day of water or other clear liquids between shakes. - Phase 3- Soft, high protein foods. Try to consume 3-4 oz of protein 3 times per day from poultry, beef, fish, seafood, eggs, cheese, Cambodian yogurt, cottage cheese, beans, lentils, tofu. Choose meat products that are tender, shredded and/or ground to increase tolerance. Remember to chew food well, eat slow, take small bites CHANGES IN TREATMENT: Patient met goal(s): Partially Diagnosis: has not changed. Allergies: Lactose, Sulfa (Sulfonamide Antibiotics), and Vancomycin Anthropometrics: Height: Last 1 Encounter Ht Readings: Date: Ht: 04/05/2023 180.3 cm (5' 11 ) Weight: Last 1 Encounter Wt Readings: Date: Wt: 04/13/2023 247.7 kg (546 lb) Body mass index is 76.15 kg/m?. Resting Metabolic Rate: 3384 Malnutrition Screening Significant unintentional weight loss? No Eating less than 75% of usual intake for more than 2 weeks? No Nutritional status: Educational materials provided: none this visit READINESS TO LEARN Cognitive ability: Alert and oriented Motivation to learn: Interested Family support: Unable to assess - Family not present Instruction provided to: Patient Patient learns best by: Multiple Methods Factors affecting learning: None Physical limitations affecting learning: None Likelihood of Adherence: Moderate Patient participated in preop bariatric surgery shared nutrition appointment. Patient participated actively in group. He is scheduled for surgery 05/23/23 and directed to start the pre-op diet 3 weeks before. He will follow the partial liquid diet and is using OWYN protein shakes. Patient has all appropriate beverages and B complex supplement. Nutrition Diagnosis: Overweight/obesity, related to, decreased energy needs, as evidenced by BMI above normative standard for age and gender. PROGRESS: Nutrition Intervention (date of last encounter 04/05/23): Please call [phone], option 5. Leave a message for the navigation team when you are finished with all clearances (nutrition, psychology, medical, surgeon) 1. Starting ~3 weeks after surgery take daily multivitamin: - Bariatric Fusion: 4 Complete chewable Multivitamins per day (2 in the AM, 2 in the PM) OR [email or web address] - Bariatric Choice: 4 Multivitamins chewables per day (2 in the AM, 2 in the PM) [email or web address] 2. Protein goal: 98 grams protein/day 3. Fluid goal: 64 fl oz of water per day (no calories, no caffeine, no carbonation, no alcohol) 4. Exercise goal: 150-250 minutes combination cardio/strength training/week 5. Practice mindful eating habits: take small portions, eat slowly, chew thoroughly 6. Start the partial liquid protein plan 3 weeks prior to surgery Breakfast: Protein shake and fruit/vegetable Lunch: Protein shake and fruit/vegetable Dinner: 4 oz lean meat/fish, vegetables, fruit and up to 1c starch/whole grains Snack: < 150 calories 1x per day (should contain protein) - Continue drinking a minimum of 64 fl oz of water per day - No solid food. (more content not included)...[facility] 05-04-2023 NoteHNO ID: [id number] Author: DAYDAY JEONG MD Service: ? Author Type: Physician Type: Progress Notes Filed: 05/04/2023 11:47 Note Text: Records faxed over from [place], [place] reviewed. Apparently was admitted on 10/06/2021 and discharged on 05/31/2022. Labs from 10/06/2021: Creatinine 0.9 potassium 3.8, eGFR 109 mm/min Albumin 3.1 The creatinine was 1.8 during hospitalization. Creatinine was 1.2 on 05/24/2022. Active problem list listed Chronic hypoxic respiratory failure. Edema Lymphedema CKD 3 Hypertension Heart failure with preserved EF Morbid obesity. Pulmonary hypertension Depression Hospital course: Admitted with shortness of breath gross volume overload. Treated with IV Lasix and transition to oral torsemide at discharge along with spironolactone. Echo: 10/07/2021: Technically difficult study. Systolic function was normal. EF estimated to be 55-65%. End-diastolic diameter is 6.4 cm. Pulmonary artery systolic pressure 22 mm plus right atrial pressure.[facility]12-20-2023 NoteHNO ID: [id number] Author: Dayday Jeong MD Service: ? Author Type: Physician Type: Progress Notes Filed: 04/25/2023 9:17 AM Note Text: [facility] SERVICE DATE: 04/13/2023 REASON FOR CONSULT: I am asked to see this patient in consultation for my opinion regarding elevated creatinine.. My recommendations will be communicated by way of shared medical record, fax, or mail. REQUESTING PHYSICIAN: Jo Henson, APR* PRIMARY CARE PHYSICIAN: No primary care provider on file. CHIEF COMPLAINT: Elevated creatinine. HPI: 42 year old male with medical history significant for Morbid Obesity, Lymphedema, fatty liver has been referred for elevated creatinine. He as admitted September, to May, 2022 in a hospital in [place], [place]. Back then he had lost his mobility. Apparently he was treated with IV lasix. He has been on Torsemide and Spironolactone since then. He was transferred from [place] to [place] as there was no facility that could handle a person of 'his size' over there. He does have his family and kids in [place]. He 692 lbs when he checked into the [facility]. He does not remember anyone telling his in the hospital that he has any kidney problems. He did have cellulitis in his leg and was treated with oral antibiotics for 10 days. He had an allergic reaction and used prednisone and anti-histamine. He uses Alleve around 2 caps 2-3 times a week; he has been doing that since May, 2022. No recent IV contrast/dye use. No h/o hematuria, dysuria, urgency or frequency. No h/o recurrent diarrhea or vomiting. No history of zeps-gkq-rtuzjhc meds use or herbal meds use. No history of renal stones. He stayed at a rehab facility from May, 2022 to feb, 2023. Had labs done at the facility under Dr Dee which revealed abnormal kidney function in 11/2022. Seen by General surgery here at . Planned for Sleeve Gastrectomy; referred to us for optimization prior to surgery. The only set of labs are outside labs done on 12/07/2022 with stools creatinine of 2.1, BUN 27, EGFR 42 mill per minute. LDL 65, A1c 5.3, TSAT 19%, hemoglobin 11.1. He is on torsemide 100 mg daily, spironolactone 25 mg daily, levothyroxine 125 mcg daily, tramadol, famotidine. He drinks around 64 oz of water a day. Lives by himself these days; Cooks himself and does not add any salt to his diet. PAST MEDICAL HISTORY: PAST MEDICAL HISTORY Diagnosis Date Acquired hypothyroidism 11/26/2022 BMI 70 and over, adult (HCC) 11/26/2022 Gastroesophageal reflux disease without esophagitis 11/26/2022 Lymphedema 10/25/2022 ISI (obstructive sleep apnea) 11/26/2022 PAST SURGICAL HISTORY: PAST SURGICAL HISTORY Procedure Laterality Date REMOVAL GALLBLADDER FAMILY HISTORY: No family history on file. SOCIAL HISTORY: Social History Tobacco Use Smoking status: Never Smokeless tobacco: Never Vaping Use Vaping Use: Never used Substance Use Topics Alcohol use: Not Currently Drug use: Never MEDICATIONS: levothyroxine (SYNTHROID) 125 mcg tablet torsemide (DEMADEX) 100 mg tablet spironolactone (ALDACTONE) 25 mg tablet famotidine (PEPCID) 40 mg tablet traMADol (ULTRAM) 50 mg tablet ALLERGIES: ALLERGIES Allergen Reactions Lactose Other: See Comments Sulfa (Sulfonamide * Itching Vancomycin Itching REVIEW OF SYSTEMS: Constitutional: No fevers, chills, weight loss Eyes: No loss in vision, photophobia Ear, Nose, and Throat: No epistaxis, nasal congestion Cardiovascular: No chest pain, SULLIVAN, SOB, palpitations Respiratory: No cough, hemoptysis Gastrointestinal: No diarrhea, constipation Genitourinary: No dysuria, polyuria Musculoskeletal: No joint pain, morning stiffness Skin: No rash, no ulcers Neurological: No headaches, seizures, paresthesias Psychiatric: No depression, anxiety Endocrine: No hair loss, no heat intolerance Hematologic:No easy bruising, easy bleeding PHYSICAL EXAM: BP 109/65 Pulse 84 Wt (!) 247.7 kg (546 lb) BMI 76.15 kg/m? BP - standardized method Pulse 1 BP #1: 114/67 Pulse #1: 84 beats/min 2 BP #2 : 99/62 Pulse #2 : 84 beats/min 3 BP #3 : 112/66 Pulse #3 : 84 beats/min Average Average BP: 109/65 Average Pulse: 84 beats/min Orthostatic vitals Supine Sitting Standing BP cuff location BP cuff size Comments for BP values First BP (right) First BP (left) Constitutional: No acute distress, Responsive, Well-nourished. Eyes: Conjunctiva clear, PERRL. Ear, Nose, and Throat: Hearing normal, Lips normal. Neck:Trachea midline, No jugular venous distension. Cardiovascular: Regular rate and ryhthm, normal S1 and S2, no murmurs, rubs, or gallops. Respiratory: Normal respiratory effort, Lungs clear bilaterally. Abdomen:Soft, non-tender, non-distended. Normal bowel sounds. No hepatosplenomegaly Musculoskeletal: No clubbing or cyanosis of digits. Pedal edema absent. Neurologic: Alert and orient (more content not included)...[facility]-20-[facility] Instructions* Patient Instructions* Dayday Jeong MD - 04/13/2023 11:18 AM EST -Avoid NSAIDs (Ibuprofen, Motrin, Alleve, Advil, Naproxen, Meloxicam/Mobic, Diclofenac, Goodies powder, BC powder etc) -Drink around 64 ounces of water/fluids per day. -Low salt diet (<2 gm sodium per day -Get laboratory tests done on Tuesday then every 2 months -please schedule a kidney ultrasound [facility] of Present illness Narrative* Dayday Jeong MD - 04/13/2023 10:40 AM EST [facility] SERVICE DATE: 04/13/2023 REASON FOR CONSULT: I am asked to see this patient in consultation for my opinion regarding elevated creatinine.. My recommendations will be communicated by way of shared medical record, fax, or mail. REQUESTING PHYSICIAN: Jo Henson, APR* PRIMARY CARE PHYSICIAN: No primary care provider on file. CHIEF COMPLAINT: Elevated creatinine. HPI: 42 year old male with medical history significant for Morbid Obesity, Lymphedema, fatty liver has been referred for elevated creatinine. He as admitted September, to May, 2022 in a hospital in [place], [place]. Back then he had lost his mobility. Apparently he was treated with IV lasix. He has been on Torsemide and Spironolactone since then. He was transferred from [place] to [place] as there was no facility that could handle a person of 'his size' over there. He does have his family and kids in [place]. He 692 lbs when he checked into the [facility]. He does not remember anyone telling his in the hospital that he has any kidney problems. He did have cellulitis in his leg and was treated with oral antibiotics for 10 days. He had an allergic reaction and used prednisone and anti-histamine. He uses Alleve around 2 caps 2-3 times a week; he has been doing that since May, 2022. No recent IVcontrast/dye use. No h/o hematuria, dysuria, urgency or frequency. No h/o recurrent diarrhea or vomiting. No history of yjkl-eij-itdlexm meds use or herbal meds use. No history of renal stones. He stayed at a rehab facility from May, 2022 to feb, 2023. Had labs done at the facility under Dr Dee which revealed abnormal kidney function in 11/2022. Seen by General surgery here at . Plannedfor Sleeve Gastrectomy; referred to us for optimization prior to surgery. The only set of labs are outside labs done on 12/07/2022 with stools creatinine of 2.1, BUN 27, EGFR42 mill per minute. LDL 65, A1c 5.3, TSAT 19%, hemoglobin 11.1. He is on torsemide 100 mg daily, spironolactone 25 mg daily, levothyroxine 125 mcg daily, tramadol,famotidine. He drinks around 64 oz of water a day. Lives by himself these days; Cooks himself and does not add any salt to his diet. PAST MEDICAL HISTORY: PAST MEDICAL HISTORY Diagnosis Date Acquired hypothyroidism 11/26/2022 BMI 70 and over, adult (HCC) 11/26/2022 Gastroesophageal reflux disease without esophagitis 11/26/2022 Lymphedema 10/25/2022 ISI (obstructive sleep apnea) 11/26/2022 PAST SURGICAL HISTORY: PAST SURGICAL HISTORY Procedure Laterality Date REMOVAL GALLBLADDER FAMILY HISTORY: No family history on file. SOCIAL HISTORY: Social History Tobacco Use Smoking status: Never Smokeless tobacco: Never Vaping Use Vaping Use: Never used Substance Use Topics Alcohol use: Not Currently Drug use: Never MEDICATIONS: levothyroxine (SYNTHROID) 125 mcg tablet torsemide (DEMADEX) 100 mg tablet spironolactone (ALDACTONE) 25 mg tablet famotidine (PEPCID) 40 mg tablet traMADol (ULTRAM) 50 mg tablet ALLERGIES: ALLERGIES Allergen Reactions Lactose Other: See Comments Sulfa (Sulfonamide * Itching Vancomycin Itching REVIEW OF SYSTEMS: Constitutional: No fevers, chills, weight loss Eyes: No loss in vision, photophobia Ear, Nose, and Throat: No epistaxis, nasal congestion Cardiovascular: No chest pain, SULLIVAN, SOB, palpitations Respiratory: No cough, hemoptysis Gastrointestinal: No diarrhea, constipation Genitourinary: No dysuria, polyuria Musculoskeletal: No joint pain, morning stiffness Skin: No rash, no ulcers Neurological: No headaches, seizures, paresthesias Psychiatric: No depression, anxiety Endocrine: No hair loss, no heat intolerance Hematologic:No easy bruising, easy bleeding PHYSICAL EXAM: BP 109/65 Pulse 84 Wt (!) 247.7 kg (546 lb) BMI 76.15 kg/m BP - standardized method Pulse 1 BP #1: 114/67 Pulse #1: 84 beats/min 2 BP #2 : 99/62 Pulse #2 : 84 beats/min 3 BP #3 : 112/66 Pulse #3 : 84 beats/min Average Average BP: 109/65 Average Pulse: 84 beats/min Orthostatic vitals Supine Sitting Standing BP cuff location BP cuff size Comments for BP values First BP (right) First BP (left) Constitutional: No acute distress, Responsive, Well-nourished. Eyes: Conjunctiva clear, PERRL. Ear, Nose, and Throat: Hearing normal, Lips normal. Neck:Trachea midline, No jugular venous distension. Cardiovascular: Regular rate and ryhthm, normal S1 and S2, no murmurs, rubs, or gallops. Respiratory: Normal respiratory effort, Lungs clear bilaterally. Abdomen:Soft, non-tender, non-distended. Normal bowel sounds. No hepatosplenomegaly Musculoskeletal: No clubbing or cyanosis of digits. Pedal edema absent. Neurologic: Alert and oriented, no focal deficits Psychiatric: Co-operative, Normal mood/affect. DATA: Diagnostic tests reviewed for today's visit: ASSESSMENT: Elevated creatinine: The only set of labs are outside labs done on 12/07/2022 with stools creatinineof 2.1, BUN 27, EGFR 42 mill per minute. Elevation in creatinine could be related to NSAID use however it is tough to say at this time whether this represents an acute kidney injury or CKD. Will needupdated labs and past records from hospital in [place], [place]. History of anasarca/Volume status: Apparently had a prolonged hospitalization last year needing IV diuretics and [place], [place]. Has been prescribed torsemide 100 mg daily and spironolactone 25 mg daily. He has both lymphedema and some pitting component to his pedal edema. Lymphedema: On diuretics. Anemia: Has iron deficiency. Not on oral iron. Morbid obesity: Planned for sleeve gastrectomy. Referred to us for pre and postoperative kidney function management. PLAN: Get records from his inpatient stay in [place], [place] Stop Aleve and all other NSAIDs. Repeat labs next week including renal panel, Cystatin C, magnesium, UA, UPCR. Check kidney ultrasound. Labs every 2 months Follow-up in 3 months. I would like to gather updated labs and past records before any definitive assessment could be maderegarding his kidney function. Will addend the notes after all updates are received. SIGNATURE: Dayday Jeong MD PATIENT NAME: Sherman Marie OFFICE NUMBER: [phone] CC: REFERRING PROVIDER: Jo Henson, CHENG* PRIMARY CARE PHYSICIAN: No primary care provider on file. documented in this encounterT[facility]12-[facility]23 NoteHNO ID: [id number] Author: Rupesh Nova RD Service: ? Author Type: Registered Dietitian Type: Progress Notes Filed: 2023 5:21 PM Note Text: AMBULATORY PATIENT EDUCATION NOTE- Shared Virtual Nutrition Group This group visit was performed virtually due to the COVID-19 epidemic as an effort to protect patients and minimize exposure. Consent from patient received to conduct a group visit virtually. This Team Access Model visit is a virtual group encounter. It required patient-provider interaction for the medical decision making as documented below. Patient reports weight (as measured by home scale) of ? pounds. TOPIC: LIFE STYLE CHANGES: Pre-op weight loss surgery (LSG): Diet and Exercise PROGRESS: Nutrition Intervention (date of last encounter 03/14/23): 1. Eat consistently with 3 meals per day. Drink a protein shake to avoid skipping meals. 2. Consume 98 grams of protein per day. 3. Aim for 20-30 grams of protein per meal and include high protein snacks as needed to meet daily protein goal. 4. Have balanced meals that include 4 oz lean protein, half plate of vegetables, and 1/2-1 cup of whole grain starch. 5. Exercise: Strive for daily activity you enjoy! Include strength training and cardio with a goal of 30 minutes 5-6 days per week. 6. Drink at least 64 fl oz per day of water or other beverages that are caffeine and sugar free. Avoid carbonated and high sugar beverages. Practice food and beverage by 30 minutes. 7. Vitamins: Begin looking into the required vitamin and mineral supplements to start taking 2-3 weeks after surgery such as: - Bariatric Fusion: 4 Complete chewable Multivitamins per day (2 in the AM, 2 in the PM) [email or web address] - Bariatric Choice: 4 Multivitamins chewables per day (2 in the AM, 2 in the PM) [email or web address] CHANGES IN TREATMENT: Patient met goal(s): Partially Actions to implement interventions: Breakfast - eggs, soto Lunch - chicken/turkey, rice Dinner - chicken Snacks - - Fluids - 64+ water, orange juice Exercise - ADL's Diagnosis: has not changed. Anthropometrics: Resting Metabolic Rate: 3389 Body mass index is 76.15 kg/m?. Malnutrition Screening Significant unintentional weight loss? No Eating less than 75% of usual intake for more than 2 weeks? No Nutritional status: Educational materials provided: none this visit READINESS TO LEARN Cognitive ability: Alert and oriented Motivation to learn: Interested Family support: Unable to assess - Family not present Instruction provided to: Patient Patient learns best by: Multiple Methods Factors affecting learning: None Physical limitations affecting learning: None Likelihood of Adherence: Moderate Patient participated in preop bariatric surgery shared nutrition appointment. Patient participated actively in group. Since previous assessment Patient has experienced unknown weight change. Diet recall indicates consistent eating pattern with no missed meals. Attention to protein intake at meals but intake of produce could improve. Planning to drink OWYN protein shakes during the pre-op diet. H/o elevated creatinine, Patient to follow Partial liquid diet for [address] Enciso. Patient meets the National Institutes of Health guidelines for weight loss surgery and has [employer] Insurance therefore is required to complete 6 months of Nutrition Intervention for clearance for surgery. Today is visit 6 of 6. (Delpra 11/03/22, 12/01/22, Avtar 01/03/23, 02/01/23, 03/14/23, 04/05/23). After session today, patient able to verbalize protein/fluid/exercise goals, recommendations for vitamin/minerals, use of protein shakes for meal replacement and for 2 week full liquid diet phase. Also able to demonstrate post op diet advancement/portion control using food models. Anticipate post op compliance. The patient meets NIH guidelines for weight loss surgery and has been thoroughly evaluated and educated on good dietary practices. Patient is capable of following these guidelines pre-and post-surgically. From nutrition standpoint, the patient is cleared for weight loss surgery. If the patient desires, he may continue to follow-up with the dietitian on a monthly basis until all surgical requirements are met. Nutrition Diagnosis: Overweight/obesity, related to, food/nutrition - related knowledge deficit, as evidenced by BMI above normative standard for age and gender. Nutrition Intervention: Modify type and amount of intake at meals and snacks Please call [phone], option 5. Leave a message for the navigation team when you are finished with all clearances (nutrition, psychology, medical, surgeon) 1. Starting ~3 weeks after surgery take daily multivitamin: - Bariatric Fusion: 4 Complete chewable Multivitamins per day (2 in the AM, 2 in the PM) OR [email or web address] - Bariatric Choice: 4 Multivitamins chewables per day (2 i (more content not included)...[facility]12-12-2023 Instructions* Patient Instructions* Rupesh Nova, NEAL - 04/05/2023 1:56 PM EST Please call [phone], option 5. Leave a message for the navigation team when you are finishedwith all clearances (nutrition, psychology, medical, surgeon) 1. Starting ~3 weeks after surgery take daily multivitamin: - Bariatric Fusion: 4 Complete chewable Multivitamins per day (2 in the AM, 2 in the PM) OR [email or web address] - Bariatric Choice: 4 Multivitamins chewables per day (2 in the AM, 2 in the PM) [email or web address] 2. Protein goal: 98 grams protein/day 3. Fluid goal: 64 fl oz of water per day (no calories, no caffeine, no carbonation, no alcohol) 4. Exercise goal: 150-250 minutes combination cardio/strength training/week 5. Practice mindful eating habits: take small portions, eat slowly, chew thoroughly 6. Start the partial liquid protein plan 3 weeks prior to surgery Breakfast: Protein shake and fruit/vegetable Lunch: Protein shake and fruit/vegetable Dinner: 4 oz lean meat/fish, vegetables, fruit and up to 1c starch/whole grains Snack: < 150 calories 1x per day (should contain protein) - Continue drinking a minimum of 64 fl oz of water per day - No solid food. May have sugar free popsicle and sugar free jello - During the liquid diet before surgery take a Super B-Complex supplement with 75-100 mg of Thiamindaily 7. Advance diet as tolerated after surgery. Use the Your Guide to Surgery for guidance and meal plans documented in this encounterT[facility]12-12-2023 History of Present illness Narrative* Rupesh Nova RD - 04/05/2023 1:00 PM EST AMBULATORY PATIENT EDUCATION NOTE- Shared Virtual Nutrition Group This group visit was performed virtually due to the COVID-19 epidemic as an effort to protect patients and minimize exposure. Consent from patient received to conduct a group visit virtually. This Team Access Model visit is a virtual group encounter. It required patient-provider interaction for themedical decision making as documented below. Patient reports weight (as measured by home scale) of ? pounds. TOPIC: LIFE STYLE CHANGES: Pre-op weight loss surgery (LSG): Diet and Exercise PROGRESS: Nutrition Intervention (date of last encounter 03/14/23): 1. Eat consistently with 3 meals per day. Drink a protein shake to avoid skipping meals. 2. Consume 98 grams of protein per day. 3. Aim for 20-30 grams of protein per meal and include high protein snacks as needed to meet daily protein goal. 4. Have balanced meals that include 4 oz lean protein, half plate of vegetables, and 1/2-1 cup of whole grain starch. 5. Exercise: Strive for daily activity you enjoy! Include strength training and cardio with a goal of 30 minutes 5-6 days per week. 6. Drink at least 64 fl oz per day of water or other beverages that are caffeine and sugar free. Avoid carbonated and high sugar beverages. Practice food and beverage by 30 minutes. 7. Vitamins: Begin looking into the required vitamin and mineral supplements to start taking 2-3 weeks after surgery such as: - Bariatric Fusion: 4 Complete chewable Multivitamins per day (2 in the AM, 2 in the PM) [email or web address] - Bariatric Choice: 4 Multivitamins chewables per day (2 in the AM, 2 in the PM) [email or web address] CHANGES IN TREATMENT: Patient met goal(s): Partially Actions to implement interventions: Breakfast - eggs, soto Lunch - chicken/turkey, rice Dinner - chicken Snacks - - Fluids - 64+ water, orange juice Exercise - ADL's Diagnosis: has not changed. Anthropometrics: Resting Metabolic Rate: 3389 Body mass index is 76.15 kg/m . Malnutrition Screening Significant unintentional weight loss? No Eating less than 75% of usual intake for more than 2 weeks? No Nutritional status: Educational materials provided: none this visit READINESS TO LEARN Cognitive ability: Alert and oriented Motivation to learn: Interested Family support: Unable to assess - Family not present Instruction provided to: Patient Patient learns best by: Multiple Methods Factors affecting learning: None Physical limitations affecting learning: None Likelihood of Adherence: Moderate Patient participated in preop bariatric surgery shared nutrition appointment. Patient participated actively in group. Since previous assessment Patient has experienced unknown weight change. Diet recall indicates consistent eating pattern with no missed meals. Attention to protein intake at meals but intake of produce could improve. Planning to drink OWYN protein shakes during the pre-op diet. H/o elevated creatinine, Patient to follow Partial liquid diet for [address] Enciso. Patient meets the National Institutes of Health guidelines for weight loss surgery and has [employer] Insurance therefore is required to complete 6 months of Nutrition Intervention for clearance for surgery. Today is visit 6 of 6. (Delpra 11/03/22, 12/01/22, Avtar 01/03/23, 02/01/23, 03/14/23, 04/05/23). Nutrition Diagnosis: Overweight/obesity, related to, food/nutrition - related knowledge deficit, asevidenced by BMI above normative standard for age and gender. Nutrition Intervention: Modify type and amount of intake at meals and snacks Please call [phone], option 5. Leave a message for the navigation team when you are finishedwith all clearances (nutrition, psychology, medical, surgeon) 1. Starting ~3 weeks after surgery take daily multivitamin: - Bariatric Fusion: 4 Complete chewable Multivitamins per day (2 in the AM, 2 in the PM) OR [email or web address] - Bariatric Choice: 4 Multivitamins chewables per day (2 in the AM, 2 in the PM) [email or web address] 2. Protein goal: 98 grams protein/day 3. Fluid goal: 64 fl oz of water per day (no calories, no caffeine, no carbonation, no alcohol) 4. Exercise goal: 150-250 minutes combination cardio/strength training/week 5. Practice mindful eating habits: take small portions, eat slowly, chew thoroughly 6. Start the partial liquid protein plan 3 weeks prior to surgery Breakfast: Protein shake and fruit/vegetable Lunch: Protein shake and fruit/vegetable Dinner: 4 oz lean meat/fish, vegetables, fruit and up to 1c starch/whole grains Snack: < 150 calories 1x per day (should contain protein) - Continue drinking a minimum of 64 fl oz of water per day - No solid food. May have sugar free popsicle and sugar free jello - During the liquid diet before surgery take a Super B-Complex supplement with 75-100 mg of Thiamindaily 7. Advance diet as tolerated after surgery. Use the Your Guide to Surgery for guidance and meal plans Nutrition Monitoring & Evaluation: 1-2 # weight loss per week prior to surgery Criteria: Weight check Need for Follow up: 1 month Group Appointment Start Time: 1:00 pm Group Appointment End Time: 1:41 pm Time Spent on Consult: 41 minutes - Group Signed by: Rupesh Nova RD documented in this encounterT[facility]11-20-2023 NoteHNO ID: [id number] Author: Rupesh Nova RD Service: ? Author Type: Registered Dietitian Type: Progress Notes Filed: 03/14/2023 10:52 AM Note Text: [facility]: Virtual Consult - Re-assessment I have communicated my name and active licensure. The patient's identity and physical location were verified at the time of this visit. Either the patient or their legal outside sales account representative has been informed of the risks and benefits of -- and alternatives to -- treatment through a remote evaluation and consents to proceed with the evaluation remotely. Nutrition Diagnosis: Overweight/obesity, related to, food/nutrition - related knowledge deficit, as evidenced by BMI above normative standard for age and gender RECOMMENDED MALNUTRITION DIAGNOSIS: NO MALNUTRITION IDENTIFIED NUTRITION CARE PLAN: Nutrition Intervention 03/14/2023: Modify type and amount of food at meals and snacks 1. Eat consistently with 3 meals per day. Drink a protein shake to avoid skipping meals. 2. Consume 98 grams of protein per day. 3. Aim for 20-30 grams of protein per meal and include high protein snacks as needed to meet daily protein goal. 4. Have balanced meals that include 4 oz lean protein, half plate of vegetables, and 1/2-1 cup of whole grain starch. 5. Exercise: Strive for daily activity you enjoy! Include strength training and cardio with a goal of 30 minutes 5-6 days per week. 6. Drink at least 64 fl oz per day of water or other beverages that are caffeine and sugar free. Avoid carbonated and high sugar beverages. Practice food and beverage by 30 minutes. 7. Vitamins: Begin looking into the required vitamin and mineral supplements to start taking 2-3 weeks after surgery such as: - Bariatric Fusion: 4 Complete chewable Multivitamins per day (2 in the AM, 2 in the PM) [email or web address] - Bariatric Choice: 4 Multivitamins chewables per day (2 in the AM, 2 in the PM) [email or web address] Nutrition Monitoring AND Evaluation: Weight loss of 1-2 pounds per week and adherence to above recommendations Need for Follow up: 1 month PROGRESS: Interval History: Patient presents for follow up nutrition consult in preparation for bariatric surgery, interested in LSG. Patient has experienced unknown weight change since previous nutrition assessment. Diet recall reveals consistent eating pattern with 3 meals per day. He has tried OWYN protein shakes and tolerates well, not using routinely at this time. He is no longer at [facility], released last week now in apartment. Home health aid will be coming weekly. Protein is likely meeting needs with attention to high protein source at each meal. Fluid intake is meeting low end needs but beverages are appropriate in choice. Supplements reviewed for post-op. Previous lab results show elevated creatinine 2.1 mg/dL, pre-op diet to be confirmed with Dr. Enciso. Patient meets the National Institutes of Health guidelines for weight loss surgery and has [employer] Insurance therefore is required to complete 6 consecutive months of Nutrition Intervention for clearance for surgery. Today is visit 5 of 6. Today is visit #5 out of 6 (Radha 11/03/22, 12/01/22, Avtar 01/03/23, 02/01/23, 03/14/23). Nutrition Intervention 02/01/23: Modify type and amount of intake at meals and snacks 1. Eat consistently with 3 meals per day. 2. Consume 98 grams of protein per day. 3. Aim for 20-30 grams of protein per meal and include high protein snacks as needed to meet daily protein goal. 4. Have balanced meals that include 4 oz lean protein, half plate of vegetables, and 1/2-1 cup of whole grain starch. 5. Exercise: Continue with daily physical therapy exercises. 6. Drink at least 64 fl oz per day of water or other beverages that are caffeine and sugar free. Avoid carbonated and high sugar beverages. Practice food and beverage by 30 minutes. 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 Resting Metabolic Rate: 3389 Malnutrition Screening Significant unintentional weight loss? No Eating less than 75% of usual intake for more than 2 weeks? No Potential Signs of Inflammation: no identifiable sources Nutritional status: Education Materials Provided: None this visit READINESS TO LEARN Cognitive ability: Alert and oriented Motivation to learn: In (more content not included)...[facility] 03-14-2023 Instructions* Patient Instructions* Rupesh Nova RD - 03/14/2023 10:52 AM EST 1. Eat consistently with 3 meals per day. Drink a protein shake to avoid skipping meals. 2. Consume 98 grams of protein per day. 3. Aim for 20-30 grams of protein per meal and include high protein snacks as needed to meet daily protein goal. 4. Have balanced meals that include 4 oz lean protein, half plate of vegetables, and 1/2-1 cup of whole grain starch. 5. Exercise: Strive for daily activity you enjoy! Include strength training and cardio with a goal of 30 minutes 5-6 days per week. 6. Drink at least 64 fl oz per day of water or other beverages that are caffeine and sugar free. Avoid carbonated and high sugar beverages. Practice food and beverage by 30 minutes. 7. Vitamins: Begin looking into the required vitamin and mineral supplements to start taking 2-3 weeks after surgery such as: - Bariatric Fusion: 4 Complete chewable Multivitamins per day (2 in the AM, 2 in the PM) [email or web address] - Bariatric Choice: 4 Multivitamins chewables per day (2 in the AM, 2 in the PM) [email or web address] documented in this encounterT[facility]11-20-[facility]23 History of Present illness Narrative* Rupesh Nova RD - 03/14/2023 10:06 AM EST [facility] Nutrition Therapy: Virtual Consult - Re-assessment I have communicated my name and active licensure. The patient's identity and physical location wereverified at the time of this visit. Either the patient or their legal outside sales account representative has been informed of the risks and benefits of -- and alternatives to -- treatment through a remote evaluation andconsents to proceed with the evaluation remotely. Nutrition Diagnosis: Overweight/obesity, related to, food/nutrition - related knowledge deficit, asevidenced by BMI above normative standard for age and gender RECOMMENDED MALNUTRITION DIAGNOSIS: NO MALNUTRITION IDENTIFIED NUTRITION CARE PLAN: Nutrition Intervention 03/14/2023: Modify type and amount of food at meals and snacks 1. Eat consistently with 3 meals per day. Drink a protein shake to avoid skipping meals. 2. Consume 98 grams of protein per day. 3. Aim for 20-30 grams of protein per meal and include high protein snacks as needed to meet daily protein goal. 4. Have balanced meals that include 4 oz lean protein, half plate of vegetables, and 1/2-1 cup of whole grain starch. 5. Exercise: Strive for daily activity you enjoy! Include strength training and cardio with a goal of 30 minutes 5-6 days per week. 6. Drink at least 64 fl oz per day of water or other beverages that are caffeine and sugar free. Avoid carbonated and high sugar beverages. Practice food and beverage by 30 minutes. 7. Vitamins: Begin looking into the required vitamin and mineral supplements to start taking 2-3 weeks after surgery such as: - Bariatric Fusion: 4 Complete chewable Multivitamins per day (2 in the AM, 2 in the PM) [email or web address] - Bariatric Choice: 4 Multivitamins chewables per day (2 in the AM, 2 in the PM) [email or web address] Nutrition Monitoring & Evaluation: Weight loss of 1-2 pounds per week and adherence to above recommendations Need for Follow up: 1 month PROGRESS: Interval History: Patient presents for follow up nutrition consult in preparation for bariatric surgery, interested in LSG. Patient has experienced unknown weight change since previous nutrition assessment. Diet recall reveals consistent eating pattern with 3 meals per day. He has tried OWYN protein shakes and tolerates well, not using routinely at this time. He is no longer at [facility], released lastweek now in apartment. Home health aid will be coming weekly. Protein is likely meeting needs with attention to high protein source at each meal. Fluid intake is meeting low end needs but beverages are appropriate in choice. Supplements reviewed for post-op. Previous lab results show elevated creatinine 2.1 mg/dL, pre-op diet to be confirmed with Dr. Enciso. Patient meets the National Institutes of Health guidelines for weight loss surgery and has [employer] Insurance therefore is required to complete 6 consecutive months of Nutrition Intervention for clearance for surgery. Today is visit 5 of 6. Today is visit #5 out of 6 (Delpra 11/03/22, 12/01/22, Avtar 01/03/23, 02/01/23, 03/14/23). Nutrition Intervention 02/01/23: Modify type and amount of intake at meals and snacks 1. Eat consistently with 3 meals per day. 2. Consume 98 grams of protein per day. 3. Aim for 20-30 grams of protein per meal and include high protein snacks as needed to meet daily protein goal. 4. Have balanced meals that include 4 oz lean protein, half plate of vegetables, and 1/2-1 cup of whole grain starch. 5. Exercise: Continue with daily physical therapy exercises. 6. Drink at least 64 fl oz per day of water or other beverages that are caffeine and sugar free. Avoid carbonated and high sugar beverages. Practice food and beverage by 30 minutes. 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 Resting Metabolic Rate: 3389 Malnutrition Screening Significant unintentional weight loss? No Eating less than 75% of usual intake for more than 2 weeks? No Potential Signs of Inflammation: no identifiable sources Nutritional status: Education Materials Provided: None this visit READINESS TO LEARN Cognitive ability: Alert and oriented Motivation to learn: Interested Family support: Unable to assess - Family not present Instruction provided to: Patient Patient learns best by: Multiple Methods Factors affecting learning: None Physical limitations affecting learning: None Likelihood of Adherence: Moderate Referred/Supervised by: Zaria GLILIAM Billing Type: Re-assess/15 min 2 units SIGNATURE: Rupesh Nova RD PATIENT NAME: Sherman Marie DATE: 03/14/2023 TIME: 10:07 AM PAGER: [facility] NoteHNO ID: [id number] Author: Rupesh Nova RD Service: ? Author Type: Registered Dietitian Type: Progress Notes Filed: 02/01/2023 2:53 PM Note Text: AMBULATORY PATIENT EDUCATION NOTE- /Shared Virtual /Nutrition Group This group visit was performed virtually due to the COVID-19 epidemic as an effort to protect patients and minimize exposure. Consent from patient received to conduct a group visit virtually. This Team Access Model visit is a virtual group encounter. It required patient-provider interaction for the medical decision making as documented below. Patient reports weight (as measured by home scale) of ? pounds. TOPIC: LIFE STYLE CHANGES: Pre-op weight loss surgery (LSG): Diet and Exercise PROGRESS: Nutrition Intervention (date of last encounter 01/03/23): 1. Eat consistently with 3 meals per day. Drink a protein shake to avoid skipping meals. Try OWYN or Orgain protein shakes for a non-dairy option. 2. Consume 98 grams of protein per day. 3. Aim for 20-30 grams of protein per meal and include high protein snacks as needed to meet daily protein goal. 4. Have balanced meals that include 4 oz lean protein, half plate of vegetables, and 1/2-1 cup of whole grain starch. 5. Exercise: Strive for daily activity you enjoy! Include strength training and cardio with a goal of 30 minutes 5-6 days per week. 6. Drink at least 64 fl oz per day of water or other beverages that are caffeine and sugar free. Avoid carbonated and high sugar beverages. Practice food and beverage by 30 minutes. 7. Vitamins: Begin looking into the required vitamin and mineral supplements to start taking 2-3 weeks after surgery (You can find this on page 49 of your Bariatric Guide to Surgery Book) CHANGES IN TREATMENT: Patient met goal(s): Partially Actions to implement interventions: Breakfast - eggs, toast, fruit Lunch - salad, chicken, soup Dinner - chicken/fish, starch, vegetable Snacks - none Fluids - 70-90 fl oz water Exercise - physical therapy daily Diagnosis: has not changed. Anthropometrics: Resting Metabolic Rate: 3389 Body mass index is 76.15 kg/m?. Malnutrition Screening Significant unintentional weight loss? No Eating less than 75% of usual intake for more than 2 weeks? No Nutritional status: Educational materials provided: none this visit READINESS TO LEARN Cognitive ability: Alert and oriented Motivation to learn: Interested Family support: Unable to assess - Family not present Instruction provided to: Patient Patient learns best by: Multiple Methods Factors affecting learning: None Physical limitations affecting learning: None Likelihood of Adherence: Moderate Patient participated in preop bariatric surgery shared nutrition appointment. Patient participated actively in group. Since previous assessment Patient has experienced unknown weight change. Diet recall indicates consistent eating pattern with no missed meals. Meals are well balanced. Has not yet been able to incorporate protein shakes regularly due to lack of dairy free options available at facility. Contact information provided for the dietitian to discuss non-dairy protein shake alternatives. Activity has been routine and water intake is adequate. Patient meets the National Institutes of Health guidelines for weight loss surgery and has [employer] Insurance therefore is required to complete 6 consecutive months of Nutrition Intervention for clearance for surgery. Today is visit #4 out of 6 (Radha 11/03/22, 12/01/22, Avtar 01/03/23, 02/01/23). Nutrition Diagnosis: Overweight/obesity, related to, food/nutrition - related knowledge deficit, as evidenced by BMI above normative standard for age and gender. Nutrition Intervention: Modify type and amount of intake at meals and snacks 1. Eat consistently with 3 meals per day. 2. Consume 98 grams of protein per day. 3. Aim for 20-30 grams of protein per meal and include high protein snacks as needed to meet daily protein goal. 4. Have balanced meals that include 4 oz lean protein, half plate of vegetables, and 1/2-1 cup of whole grain starch. 5. Exercise: Continue with daily physical therapy exercises. 6. Drink at least 64 fl oz per day of water or other beverages that are caffeine and sugar free. Avoid carbonated and high sugar beverages. Practice food and beverage by 30 minutes. Nutrition Monitoring AND Evaluation: 1-2 # weight loss per week prior to surgery Criteria: Weight check Need for Follow up: 1 month Group Appointment Start Time: 1:00 pm Group Appointment End Time: 1:37 pm Time Spent on Consult: 37 minutes - Group Signed by: [facility] Inst[facility]* Patient Instructions* Rupesh Nova RD - 02/01/2023 2:53 PM EDT 1. Eat consistently with 3 meals per day. 2. Consume 98 grams of protein per day. 3. Aim for 20-30 grams of protein per meal and include high protein snacks as needed to meet daily protein goal. 4. Have balanced meals that include 4 oz lean protein, half plate of vegetables, and 1/2-1 cup of whole grain starch. 5. Exercise: Continue with daily physical therapy exercises. 6. Drink at least 64 fl oz per day of water or other beverages that are caffeine and sugar free. Avoid carbonated and high sugar beverages. Practice food and beverage by 30 minutes. documented in [facility]10-[facility]23 History of Present illness Narrative* Rupesh Nova RD - 02/01/2023 2:30 PM EDT AMBULATORY PATIENT EDUCATION NOTE- /Shared Virtual /Nutrition Group This group visit was performed virtually due to the COVID-19 epidemic as an effort to protect patients and minimize exposure. Consent from patient received to conduct a group visit virtually. This Team Access Model visit is a virtual group encounter. It required patient-provider interaction for themedical decision making as documented below. Patient reports weight (as measured by home scale) of ? pounds. TOPIC: LIFE STYLE CHANGES: Pre-op weight loss surgery (LSG): Diet and Exercise PROGRESS: Nutrition Intervention (date of last encounter 01/03/23): 1. Eat consistently with 3 meals per day. Drink a protein shake to avoid skipping meals. Try OWYN or Orgain protein shakes for a non-dairy option. 2. Consume 98 grams of protein per day. 3. Aim for 20-30 grams of protein per meal and include high protein snacks as needed to meet daily protein goal. 4. Have balanced meals that include 4 oz lean protein, half plate of vegetables, and 1/2-1 cup of whole grain starch. 5. Exercise: Strive for daily activity you enjoy! Include strength training and cardio with a goal of 30 minutes 5-6 days per week. 6. Drink at least 64 fl oz per day of water or other beverages that are caffeine and sugar free. Avoid carbonated and high sugar beverages. Practice food and beverage by 30 minutes. 7. Vitamins: Begin looking into the required vitamin and mineral supplements to start taking 2-3 weeks after surgery (You can find this on page 49 of your Bariatric Guide to Surgery Book) CHANGES IN TREATMENT: Patient met goal(s): Partially Actions to implement interventions: Breakfast - eggs, toast, fruit Lunch - salad, chicken, soup Dinner - chicken/fish, starch, vegetable Snacks - none Fluids - 70-90 fl oz water Exercise - physical therapy daily Diagnosis: has not changed. Anthropometrics: Resting Metabolic Rate: 3389 Body mass index is 76.15 kg/m . Malnutrition Screening Significant unintentional weight loss? No Eating less than 75% of usual intake for more than 2 weeks? No Nutritional status: Educational materials provided: none this visit READINESS TO LEARN Cognitive ability: Alert and oriented Motivation to learn: Interested Family support: Unable to assess - Family not present Instruction provided to: Patient Patient learns best by: Multiple Methods Factors affecting learning: None Physical limitations affecting learning: None Likelihood of Adherence: Moderate Patient participated in preop bariatric surgery shared nutrition appointment. Patient participated actively in group. Since previous assessment Patient has experienced unknown weight change. Diet recall indicates consistent eating pattern with no missed meals. Meals are well balanced. Has not yet been able to incorporate protein shakes regularly due to lack of dairy free options available at facility. Contact information provided for the dietitian to discuss non-dairy protein shake alternatives. Activity has been routine and water intake is adequate. Patient meets the National Institutes of Health guidelines for weight loss surgery and has [employer] Insurance therefore is required to complete 6 consecutive months of Nutrition Intervention for clearance for surgery. Today is visit #4 out of 6 (Radha 11/03/22, 12/01/22, Avtar 01/03/23, 02/01/23). Nutrition Diagnosis: Overweight/obesity, related to, food/nutrition - related knowledge deficit, asevidenced by BMI above normative standard for age and gender. Nutrition Intervention: Modify type and amount of intake at meals and snacks 1. Eat consistently with 3 meals per day. 2. Consume 98 grams of protein per day. 3. Aim for 20-30 grams of protein per meal and include high protein snacks as needed to meet daily protein goal. 4. Have balanced meals that include 4 oz lean protein, half plate of vegetables, and 1/2-1 cup of whole grain starch. 5. Exercise: Continue with daily physical therapy exercises. 6. Drink at least 64 fl oz per day of water or other beverages that are caffeine and sugar free. Avoid carbonated and high sugar beverages. Practice food and beverage by 30 minutes. Nutrition Monitoring & Evaluation: 1-2 # weight loss per week prior to surgery Criteria: Weight check Need for Follow up: 1 month Group Appointment Start Time: 1:00 pm Group Appointment End Time: 1:37 pm Time Spent on Consult: 37 minutes - Group Signed by: Rupesh Nova RD documented in this encounterT[facility]09-29-[facility]23 NoteHNO ID: [id number] Author: Jomar Gillespie, PhD Service: ? Author Type: Psychologist Type: Progress Notes Filed: 01/24/2023 11:50 AM Note Text: [facility] EVALUATION DATE OF SERVICE: January 24, 2023 TIME OF SERVICE: 11:00-11:43am [facility]: [facility] CPT CODE: - [id number] Virtual Psych Diagnostic Eval + Brief assessment w/ scoring AND documentation X3 BILLING CODE: ENDO PSYL MAIN Bry SESSION #: 1 The patient e-signed the Informed Consent for Psychological Evaluation AND Care Form, and the [facility] benefits, fees for service, emergency procedures, and the limits of confidentiality that may pertain with any given case were discussed with the patient. The patient was given a copy of the consent form on [employer]. The patient consented to a virtual visit and their location was confirmed. IDENTIFYING INFORMATION Mr. Sherman Marie is a 42 year old male. He was referred by Dr. Enciso. Mr. Marie is seeking gastric sleeve for morbid obesity. COLLATERAL PARTIES PRESENT: none. MOTIVATION FOR SURGERY / UNDERSTANDING OF PROCEDURE / EXPECTATIONS: Mr. Marie notes he is motivated for surgery by wanting to increase his independence. The patient has a fairly limited understanding of the surgery, risks, and benefits, but a very good understanding of lifestyle changes needed. He was under the impression that a band would be placed around his stomach. He has talked with other people who have undergone the procedure. His friend underwent surgery a few days ago. Other members of his SNF are also pursuing surgery. Specific areas of understanding that should be addressed include knowledge regarding surgical procedure. The patient has not attended a weight loss surgery support group. The patient expects to achieve a postsurgical weight of 270 lbs. following surgery over ?? months, suggesting high weight loss expectations. He was amenable to education about more realistic expectations. Other expectations include improvement in health, decreased need for medication, decreased need for CPAP, increased longevity, and increased independence. Educated patient regarding expected weight loss after surgical procedure and timeline of weight loss/surgery recovery. CAPACITY TO CONSENT: Mr. Marie evidences the following concerns regarding capacity to consent: none noted. MEDICAL PROBLEMS ACTIVE PROBLEM LIST Lymphedema Limited Mobility Bmi 70 and Over, Adult (Hcc) Gastroesophageal Reflux Disease Without Esophagitis Isi (Obstructive Sleep Apnea) Acquired Hypothyroidism Past surgeries? 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 No MEDICATIONS Current Outpatient Medications Medication Sig levothyroxine (SYNTHROID) 125 mcg tablet torsemide (DEMADEX) 100 mg tablet spironolactone (ALDACTONE) 25 mg tablet famotidine (PEPCID) 40 mg tablet traMADol (ULTRAM) 50 mg tablet No current facility-administered medications for this visit. Psychiatric medication: NONE ALLERGIES ALLERGIES Allergen Reactions Lactose Other: See Comments Sulfa (Sulfonamide * Itching Vancomycin Itching EATING/WEIGHT HISTORY: Mr. Marie was average weight and athletic as a child. His weight at age 16 was 240 lbs. The patient reports the following factors as contributing to weight gain: stress ( life stuff, relationships ), skipped meals while working 2 full-time jobs, laziness, and poor eating habits. The patient reports a family history of obesity. The patient's current weight is 546 lbs. His BMI is 76. His highest weight was 692 lb approximately a year ago. The patient has tried weight loss strategies in the past including: Weight Watchers, exercise, and diet changes over the past year such as reducing skipped meals. The patient denies a history of laxative/diuretic use. The patient denies a history of vomiting to lose weight. The patient denies a history of an eating disorder. He has not had treatment for eating disorders in the past. The most pt has lost is 140 lbs using Weight Watchers. Patient reports eating 3 meals/day, with 1 evening snack of nuts or fruit. The patient describes his eating pattern as follows (copied from 01/03/23 nutrition note and confirmed w/ pt): Breakfast - eggs, protein, 1 slice toast, orange juice/apple juice, +/- oatmeal/fruit Snack - none Lunch - salad (onion, lettuce, egg, +/- chicken) Snack - none Dinner - baked chicken, string beans, rice/potato OR fish, vegetable, starch Snack - cashews/peanuts Beverages - 64 fl oz water/propel Vitamins/Supplements - none Exercise- physical therapy exercises, walking The patient notes coffee/tea use of 1-2 cups/week. Soda pop usage is 0 per day. He implemented the following changes recently: Eliminated soda ROBERTA (more content not included)...[facility]09-29-[facility] History of Present illness Narrative* Jomar Gillespie, PhD - 01/21/2023 8:53 AM EDT [facility] EVALUATION DATE OF SERVICE: January 24, 2023 TIME OF SERVICE: 11:00-11:43am [facility]: [facility] CPT CODE: - [id number] Virtual Psych Diagnostic Eval + Brief assessment w/ scoring & documentation X3 BILLING CODE: ENDO PSYL MAIN Bry SESSION #: 1 The patient e-signed the Informed Consent for Psychological Evaluation & Care Form, and the [facility] insurance benefits, fees for service, emergency procedures, and the limits of confidentiality that may pertain with any given case were discussed with the patient. The patient was given a copy of the consent form on [employer]. The patient consented to a virtual visit and their location was confirmed. IDENTIFYING INFORMATION Mr. Sherman Marie is a 42 year old male. He was referred by Dr. Enciso. Mr. Marie is seekinggastric sleeve for morbid obesity. COLLATERAL PARTIES PRESENT: none. MOTIVATION FOR SURGERY / UNDERSTANDING OF PROCEDURE / EXPECTATIONS: Mr. Marie notes he is motivated for surgery by wanting to increase his independence. The patient has a fairly limited understanding of the surgery, risks, and benefits, but a very good understanding of lifestyle changes needed. He was under the impression that a band would be placed around his stomach. He has talked with other people who have undergone the procedure. His friend underwent surgery a few days ago. Other members of his SNF are also pursuing surgery. Specific areas of understanding that should be addressed include knowledge regarding surgical procedure. The patient has not attended a weight loss surgery support group. The patient expects to achieve a postsurgical weight of 270 lbs. following surgery over ?? months, suggesting high weight loss expectations. He was amenable to education about more realistic expectations. Other expectations include improvement in health, decreased need for medication, decreased need forCPAP, increased longevity, and increased independence. Educated patient regarding expected weight loss after surgical procedure and timeline of weight loss/surgery recovery. CAPACITY TO CONSENT: Mr. Marie evidences the following concerns regarding capacity to consent: none noted. MEDICAL PROBLEMS ACTIVE PROBLEM LIST Lymphedema Limited Mobility Bmi 70 and Over, Adult (Hcc) Gastroesophageal Reflux Disease Without Esophagitis Isi (Obstructive Sleep Apnea) Acquired Hypothyroidism Past surgeries? 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 No MEDICATIONS Current Outpatient Medications Medication Sig levothyroxine (SYNTHROID) 125 mcg tablet torsemide (DEMADEX) 100 mg tablet spironolactone (ALDACTONE) 25 mg tablet famotidine (PEPCID) 40 mg tablet traMADol (ULTRAM) 50 mg tablet No current facility-administered medications for this visit. Psychiatric medication: NONE ALLERGIES ALLERGIES Allergen Reactions Lactose Other: See Comments Sulfa (Sulfonamide * Itching Vancomycin Itching EATING/WEIGHT HISTORY: Mr. Marie was average weight and athletic as a child. His weight at age 16 was 240 lbs. The patientreports the following factors as contributing to weight gain: stress ( life stuff, relationships ),skipped meals while working 2 full- time jobs, laziness, and poor eating habits. The patient reports a family history of obesity. The patient's current weight is 546 lbs. His BMI is 76. His highest weight was 692 lb approximately a year ago. The patient has tried weight loss strategies in the past including: Weight Watchers, exercise, and diet changes over the past year such as reducing skipped meals. The patient denies a history of laxative/diuretic use. The patient denies a history of vomiting to lose weight. The patient denies a history of an eating disorder. He has not had treatment for eating disorders in the past. The most pt has lost is 140 lbs using Weight Watchers. Patient reports eating 3 meals/day, with 1 evening snack of nuts or fruit. The patient describes his eating pattern as follows (copied from 01/03/23 nutrition note and confirmed w/ pt): Breakfast - eggs, protein, 1 slice toast, orange juice/apple juice, +/- oatmeal/fruit Snack - none Lunch - salad (onion, lettuce, egg, +/- chicken) Snack - none Dinner - baked chicken, string beans, rice/potato OR fish, vegetable, starch Snack - cashews/peanuts Beverages - 64 fl oz water/propel Vitamins/Supplements - none Exercise- physical therapy exercises, walking The patient notes coffee/tea use of 1-2 cups/week. Soda pop usage is 0 per day. He implemented the following changes recently: Eliminated soda BINGE EATING ASSESSMENT: A. Recurrent episodes of binge eating. An episode is characterized by: 1. Eating a larger amount of food than normal during a short period of time (within any two hour period): No 2. Lack of control over eating during the binge episode (i.e. the feeling that one cannot stop eating): No B. Binge eating episodes are associated with three or more of the followin. Eating until feeling uncomfortably full: not applicable 2. Eating large amounts of food when not physically hungry: not applicable 3. Eating much more rapidly than normal: not applicable 4. Eating alone because you are embarrassed by how much you're eating: not applicable 5. Feeling disgusted, depressed, or guilty after overeating: not applicable THREE ASSOCIATED SYMPTOMS MET? No C. Marked distress regarding binge eating is present: not applicable D. Binge eating occurs, on average, at least 1 days a week for three months: not applicable The patient reports 0 binge episodes per week for the past 12 months. E. The binge eating is not associated with the regular use of inappropriate compensatory behavior (i.e. purging, excessive exercise, etc.) and does not occur exclusively during the course of bulimia nervosa or anorexia nervosa.not applicable PATIENT MEETS ABOVE CRITERIA FOR BINGE EATING DISORDER:No Eating Habits Checklist 01/24/2023 Body Image 0 - I don't feel self-conscious about my weight or body size when I'm with others. Eating Speed 0 - I don't have any difficulty eating slowly in the proper manner. Eating Urges 0 - I feel capable to control my eating urges when I want to. Bored Eating 0 - I don't have the habit of eating when I'm bored. Hungry Feeling 0 - I'm usually physically hungry when I eat something. Overeating Guilt 0 - I don't feel any guilt or self-hate after I overeat. Eating with Others 0 - I seem to eat just as much when I'm with others (family, social gatherings) as when I'm by myself. Meals per Day 0 - I eat three meals a day with only an occasional between meal snack. Unwanted Urges 0 - I don't think much about trying to control unwanted eating urges. Thinking about Food 0 - I don't think about food a great deal. Physically Hungry 0 - I usually know whether or not I'm physically hungry. I take the right portionof food to satisfy me. Total Score 0 <18 = minimal binge eating, 18-26 = moderate binge eating, >27 = severe binge eating The patient shows graze eating behaviors: No. Patient notes loss of control with grazing not applicable. Grazing occurs 0 days/week. NIGHT EATING SYNDROME A. Demonstrates a significantly increased intake in the evening and/or nighttime, as evidenced by one or both of the following. 1. At least 25% of food is consumed after the evening meal: No 2. At least two episodes of nocturnal eating per week: No B. The clinical picture is characterized by three or more of the followin. Lack of desire to eat in the morning and/or breakfast is skipped four or more mornings per week:not applicable 2. A strong urge to eat between dinner and sleep onset and/or during the night:not applicable 3. Insomnia is present four or more nights per week (onset or maintenance): not applicable 4. Belief one must eat to initiate or return to sleep: not applicable 5. Mood is frequently depressed or worsens in the evening: not applicable C. Marked distress or impairment around night eating is present: not applicable D. Night eating has occurred for at least 3 months: not applicable PATIENT MEETS ABOVE CRITERIA FOR NIGHT EATING SYNDROME: No MENTAL HEALTH HISTORY He is not currently receiving mental health treatment. He was previously engaged in counseling in 2017/2018 during a period of high stress, and found it beneficial. He has never been prescribed antidepressants. Mr. Marie has never been an inpatient for a psychiatric reason. The patient has no previous suicide attempts. The patient has no history of self-injurious behavior. The patient has no family history of mental illness. The patient denies a history of physical, sexual, or emotional abuse. Mr. Marie describes his overall mood as follows: positive, always encouraging people. The following psychiatric symptoms are noted: Depression: Denies any current symptoms of depression Alis: Denies any history of hypomanic or manic episodes. Psychosis: Denies any hallucinations or delusions. Generalized Anxiety Disorder: Denies any symptoms of KIAH Panic: Denies any symptoms of panic. Obsessive Compulsive Disorder: Denies any symptoms of OCD. Post-Traumatic Stress Disorder: Denies any PTSD symptoms The patient has the following level of depression: none. Besides depressive disorders, the patient meets criteria for no discernible disorder(s). SUBSTANCE USE Alcohol Use Disorder Identification Test-C: How often do you drink Alcohol? 0 (Never); How many drinks containing alcohol do you have on a typical day when you are drinking? 0 ( = 1 or 2); How often do you have 5 or more drinks on one occasion: 0 (Never). The patient's most recent drinking episode was in 2019. The patient denies any alcohol consumption. He denied past problems with alcohol. The patient was given a handout: The Facts About Alcohol Use & Your Bariatric Surgery. The patient DOES NOT report current marijuana use. The patient denies current drug use and reports past drug use including Marijuana (last use:in 20s;frequency: rare/social; denied problems or treatment). The patient does not report social/occupational/legal consequences associated with drug or alcohol use. Currently, the patient has no reported mendoza bstance abuse (prescription or illegal). Treatment included: The patient has never had any substance abuse treatment. The patient is a lifelong nonsmoker. The patient has no tobacco use. FAMILY OF ORIGIN Mr. Marie was raised in an intact family. He described his childhood as good[place] The patient had no siblings. The patient's mother has been for 22 years and his father has been since 2013 MARITAL FAMILY/SIGNIFICANT RELATIONSHIPS Mr. Marie is x2. He is not currently in a romantic relationship. The patient has 3 children, ages 19, 18, and 16. The patient currently lives in a SNF, where he has been since May 2022.He is in the process of moving into assisted living hopefully within the next week. The patient will have assisted living personnel, cousins, aunts, and friends help him after surgeryduring the recovery period. Other social supports include extended family and friends. The patient reports that his social supports are supportive of his decision for surgery. EDUCATION/EMPLOYMENT The patient has completed 12 years of education (high school). His achievement in school was average. The patient is in the process of applying for disability benefits, and is not currently employed.. 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 CURRENT STRESSORS: The patient reports the following stressors: eager to leave the SNF COPING STRATEGIES The patient reports the following coping strategies: relying on yarsanism beliefs/praying, listening to music, walking, and letting go of what he can't control. These coping strategies have been effective. The patient notes yarsanism practice is: Anabaptist. The patient's cultural identity/ethnicity is: - Georgian. LEISURE/EXERCISE The patient currently exercises 7 times a week by strength training (e.g., lifting dumbells, chest lifts etc). He has been improving mobility over the last year, and is no longer using a walker. The patient's hobbies include singing and drumming. SLEEP: The patient reports problems falling asleep: No The patient reports problems staying asleep:No The patient reports the following quality of sleep:good Total sleep time: 5-6 hours Patient is diagnosed with ISI:Yes The patient wears a CPAP for 5-6 hours; 7 days/week. Patient Data Generalized Anxiety Disorder Scale (KIAH-7) KIAH - 7 SCORES 01/24/2023 KIAH-7 Score 0 (0-4) minimal anxiety, (5-9) mild anxiety, (10-14) moderate anxiety, (15-21) severe anxiety Patient Health Questionnaire (PHQ-9) PHQ-9 01/24/2023 Score 0 (0-4) minimal depression, (5-9) mild depression, (10-14) moderate depression, (15-19) moderately severe depression, (20-27) severe depression Mental Status Exam: General/Sensorium: Alert and & interactive - Appearance: Appears well groomed and stated age - Eye Contact: Appropriate eye contact - Demeanor: Appropriately interactive - Motor Activity: Normal - Speech: Appropriate - Mood: Denies mood concerns - Affect: Euthymic - Thought Process: Linear, logical, and goal-directed - Associations: Normal - Thought Content: Appropriate with no SI/HI/AVH - Perceptions: The patient does not appear internally stimulated - Cognition: Appears intact in regards to memory, attention/concentration, fund of knowledge and language skills - Insight: Good - Judgment: Good - PROVISIONAL DIAGNOSTIC IMPRESSION Primary Diagnoses: Psychological Factors Affecting Morbid Obesity Personality Diagnoses:No diagnosis Global Assessment of Functionin-91 Superior functioning in wide range of activities, life problems never seem to get out of hand. no symptoms. IMPRESSIONS: 1) Based on the information gathered through the interview process , he appears to be psychologically stable at this time with no overt evidence of psychologic contraindications for bariatric surgery. The patient does not appear to have a major uncontrolled psychiatric disorder and appears to be able to comply with the recommended medical/surgical preoperative and postoperative treatment plans. The patient appeared to have high expectations regarding surgery. The patient s understanding of the surgery and the changes necessary post-operatively appears to be fair. 2) The patient denied and did not evidence clinically significant depression, anxiety, or irritability at this time. The patient denied any history of or active tobacco use. The patient denies current substance abuse and does not evidence a history of substance abuse or dependence. The patient has reasonable stress at this time. The patient has effective coping and good supports. The patient does not meet criteria for an eating disorder at this time. TREATMENT PLAN AND RECOMMENDATIONS: 1) The following items are needed to complete the psychological evaluation: *all requirements have been met 2) The patient may benefit from the following during the surgery process: *participation in a Weight Loss Surgery support group *continue exercise program *read The Emotional First Aid Kit: A Practical Guide to Life After Bariatric Surgery by Polly Urias *Follow up with psychology as an inpatient if needed *Follow up with psychology at 1, 3, 6, and 12 months postsurgery *Do not use alcohol, tobacco, and street drugs for 3 to 6 months prior to and after surgery. The [facility] [place] [facility] has 2 virtual support group meetings that are free! (Not billed to you or insurance) This is the [employer] link with meeting number that will be used for all of the TUESDAY virtual support groups this year, on the Tuesday of each month 5:30-6:30PM Join from the meeting link [email or web address] Join by meeting number Meeting number (access code): [phone] Meeting password: [email or web address] The schedule with dates, times, topics, and facilitators can be found here: [email or web address] This is the [employer] link with meeting number that will be used for the Open Discussion ( Food for Thought ) support group on the First Tuesday of each month 5:30-6:30PM Join from the meeting link [email or web address] Join by meeting number Meeting number (access code): [phone] Meeting password: [email or web address] 3) Pt provided with Behavior Health Considerations re: bariatric surgery, reading and internet resources for facilitating postsurgical adjustment and permanent lifestyle change, and weight loss surgery support group information in his Surgical Guide. 4) The patient is to follow up as needed presurgery and one month post surgery in shared psychologygroup setting. 5) Above recommendations and treatment plan will be communicated back to the referring physician byway of the shared medical record. Thank you for this referral. Please feel free to call or page with any questions. Jomar Gillespie, Ph.D. Psychologist BEHAVIORAL HEALTH BARIATRIC EVALUATION SUMMARY DATE : January 24, 2023 PATIENT NAME: Sherman Marie 1. Consent: Good 2. Expectations:Fair 3. Social support :Good 4. Mental Health :Excellent 5. Chemical/Alcohol Abuse/Dependence: Excellent 6. Eating Behaviors:Good 7. Adherence : Excellent 8. Coping/Stressors:Good 9. Overall Psychological Impression: Good [facility] Instructions* Patient Instructions* Rupesh Nova, NEAL - 01/03/2023 12:51 PM EDT 1. Eat consistently with 3 meals per day. Drink a protein shake to avoid skipping meals. Try OWYN or Orgain protein shakes for a non-dairy option. 2. Consume 98 grams of protein per day. 3. Aim for 20-30 grams of protein per meal and include high protein snacks as needed to meet daily protein goal. 4. Have balanced meals that include 4 oz lean protein, half plate of vegetables, and 1/2-1 cup of whole grain starch. 5. Exercise: Strive for daily activity you enjoy! Include strength training and cardio with a goal of 30 minutes 5-6 days per week. 6. Drink at least 64 fl oz per day of water or other beverages that are caffeine and sugar free. Avoid carbonated and high sugar beverages. Practice food and beverage by 30 minutes. 7. Vitamins: Begin looking into the required vitamin and mineral supplements to start taking 2-3 weeks after surgery (You can find this on page 49 of your Bariatric Guide to Surgery Book) documented [facility] NoteHNO ID: [id number] Author: Rupesh Nova RD Service: ? Author Type: Registered Dietitian Type: Progress Notes Filed: 01/03/2023 12:51 PM Note Text: [facility] Nutrition Therapy: Virtual Consult - Re-assessment I have communicated my name and active licensure. The patient's identity and physical location were verified at the time of this visit. Either the patient or their legal outside sales account representative has been informed of the risks and benefits of -- and alternatives to -- treatment through a remote evaluation and consents to proceed with the evaluation remotely. Nutrition Diagnosis: Overweight/obesity, related to, food/nutrition - related knowledge deficit, as evidenced by BMI above normative standard for age and gender RECOMMENDED MALNUTRITION DIAGNOSIS: NO MALNUTRITION IDENTIFIED NUTRITION CARE PLAN: Nutrition Intervention 12/31/2022: Modify type and amount of food at meals and snacks 1. Eat consistently with 3 meals per day. Drink a protein shake to avoid skipping meals. Try OWYN or Orgain protein shakes for a non-dairy option. 2. Consume 98 grams of protein per day. 3. Aim for 20-30 grams of protein per meal and include high protein snacks as needed to meet daily protein goal. 4. Have balanced meals that include 4 oz lean protein, half plate of vegetables, and 1/2-1 cup of whole grain starch. 5. Exercise: Strive for daily activity you enjoy! Include strength training and cardio with a goal of 30 minutes 5-6 days per week. 6. Drink at least 64 fl oz per day of water or other beverages that are caffeine and sugar free. Avoid carbonated and high sugar beverages. Practice food and beverage by 30 minutes. 7. Vitamins: Begin looking into the required vitamin and mineral supplements to start taking 2-3 weeks after surgery (You can find this on page 49 of your Bariatric Guide to Surgery Book) Nutrition Monitoring AND Evaluation: Weight loss of 1-2 pounds per week and adherence to above recommendations Need for Follow up: 1 month, as scheduled PROGRESS: Interval History: Patient presents for follow up nutrition consult in preparation for bariatric surgery, interested in LSG. Patient has experienced 12 lb weight loss since previous nutrition assessment. Diet recall reveals consistent eating pattern with 3 meals per day. Typically has a protein dense food at each meal that appear well balanced. Has not yet started to incorporate protein shakes due to Patient reporting intolerance to Premier protein shake offered at [facility]. Fluids not yet meeting recommendations with regular intake of high sugar beverage. Water intake is adequate. Exercise is routine and reasonable at this time. Supplements reviewed today. Patient meets the National Institutes of Health guidelines for weight loss surgery and has [employer] Insurance therefore is required to complete 6 consecutive months of Nutrition Intervention for clearance for surgery. Today is visit #3 out of 6 (Radha 11/03/22, 12/01/22, Avtar 01/03/23). Nutrition Intervention 12/01/22 1. Read Nutritional Guidelines Section of Your Guide to Surgery by next session [email or web address] 2. Do not skip meals. 3. Use protein shake 1x per day to replace any skipped meals or for breakfast -Aim for shakes <5 grams of total sugar, 20-30 grams of protein -Start to explore the protein shakes on page 39 in your Guideline booklet for the two-week full-liquid diet. Examples: Slim Fast Advanced Nutrition [place] Breakfast Essentials ?Light Start? Drink mixed with fat free or 1% milk Atkins 15 gram protein Boost Glucose Control OWYN 4. Use the Healthy Plate Method of portion control for lunch and dinner 4 oz lean meat (fish, chicken, pork tenderloin, turkey, seafood, eggs/cheese) 1/2 plate non starchy vegetables (salad, greens, cabbage, spinach, brussels sprouts, broccoli, carrots, celery, peppers, green beans, cauliflower) 1 cup starch/starchy vegetables (corn, peas, beans, winter squash, sweet potato, brown rice, whole grain pasta, whole grain bread products, quinoa) 5. Physical activity: Aim for 150 minutes of physical activity per week. 6. Drink 64 ounces per day water. Fluids should follow these guidelines: No carbonation, no caffeine, no calories, no alcohol. 7. Start to explore vitamins and minerals for post-op (3 weeks after surgery). You can find these on page 49 in your guideline booklet. Some examples of vitamins/mineral companies: - Bariatric Fusion: 4 Complete Chewable Multivitamins per day (2 in the AM, 2 in the PM) www.[email or web address].[employer] - [employer] Biosystems: ?1 Bariatric Multivitamin and Calcium Citrate (total of 0261-4040 mg/day)? * take calcium citrate separately from Multivitamin with iron at least 2 hours apart and 4 hours apart from additional calcium www.Aquacue - Bariatr (more content not included)...[facility]09-11-2023 History of Present illness Narrative* Rupesh Nova RD - 01/03/2023 8:45 AM EDT [facility] Nutrition Therapy: Virtual Consult - Re-assessment I have communicated my name and active licensure. The patient's identity and physical location wereverified at the time of this visit. Either the patient or their legal outside sales account representative has been informed of the risks and benefits of -- and alternatives to -- treatment through a remote evaluation andconsents to proceed with the evaluation remotely. Nutrition Diagnosis: Overweight/obesity, related to, food/nutrition - related knowledge deficit, asevidenced by BMI above normative standard for age and gender RECOMMENDED MALNUTRITION DIAGNOSIS: NO MALNUTRITION IDENTIFIED NUTRITION CARE PLAN: Nutrition Intervention 12/31/2022: Modify type and amount of food at meals and snacks 1. Eat consistently with 3 meals per day. Drink a protein shake to avoid skipping meals. Try OWYN or Orgain protein shakes for a non-dairy option. 2. Consume 98 grams of protein per day. 3. Aim for 20-30 grams of protein per meal and include high protein snacks as needed to meet daily protein goal. 4. Have balanced meals that include 4 oz lean protein, half plate of vegetables, and 1/2-1 cup of whole grain starch. 5. Exercise: Strive for daily activity you enjoy! Include strength training and cardio with a goal of 30 minutes 5-6 days per week. 6. Drink at least 64 fl oz per day of water or other beverages that are caffeine and sugar free. Avoid carbonated and high sugar beverages. Practice food and beverage by 30 minutes. 7. Vitamins: Begin looking into the required vitamin and mineral supplements to start taking 2-3 weeks after surgery (You can find this on page 49 of your Bariatric Guide to Surgery Book) Nutrition Monitoring & Evaluation: Weight loss of 1-2 pounds per week and adherence to above recommendations Need for Follow up: 1 month, as scheduled PROGRESS: Interval History: Patient presents for follow up nutrition consult in preparation for bariatric surgery, interested in LSG. Patient has experienced 12 lb weight loss since previous nutrition assessment. Diet recall reveals consistent eating pattern with 3 meals per day. Typically has a protein dense food at each meal that appear well balanced. Has not yet started to incorporate protein shakes dueto Patient reporting intolerance to Premier protein shake offered at [facility]. Fluids not yet meeting recommendations with regular intake of high sugar beverage. Water intake is adequate. Exercise is routine and reasonable at this time. Supplements reviewed today. Patient meets the National Institutes of Health guidelines for weight loss surgery and has [employer] Insurance therefore is required to complete 6 consecutive months of Nutrition Intervention for clearance for surgery. Today is visit #3 out of 6 (Delpra 11/03/22, 12/01/22, Avtar 01/03/23). Nutrition Intervention 12/01/22 1. Read Nutritional Guidelines Section of Your Guide to Surgery by next session [email or web address] n 2. Do not skip meals. 3. Use protein shake 1x per day to replace any skipped meals or for breakfast -Aim for shakes <5 grams of total sugar, 20-30 grams of protein -Start to explore the protein shakes on page 39 in your Guideline booklet for the two-week full-liquid diet. Examples: Slim Fast Advanced Nutrition [place] Breakfast Essentials Light Start Drink mixed with fat free or 1% milk Atkins 15 gram protein Boost Glucose Control OWYN 4. Use the Healthy Plate Method of portion control for lunch and dinner 4 oz lean meat (fish, chicken, pork tenderloin, turkey, seafood, eggs/cheese) 1/2 plate non starchy vegetables (salad, greens, cabbage, spinach, brussels sprouts, broccoli, carrots, celery, peppers, green beans, cauliflower) 1 cup starch/starchy vegetables (corn, peas, beans, winter squash, sweet potato, brown rice, whole grain pasta, whole grain bread products, quinoa) 5. Physical activity: Aim for 150 minutes of physical activity per week. 6. Drink 64 ounces per day water. Fluids should follow these guidelines: No carbonation, no caffeine, no calories, no alcohol. 7. Start to explore vitamins and minerals for post-op (3 weeks after surgery). You can find these on page 49 in your guideline booklet. Some examples of vitamins/mineral companies: - Bariatric Fusion: 4 Complete Chewable Multivitamins per day (2 in the AM, 2 in the PM) www.bariatricfusion.com - [employer] Biosystems: ?1 Bariatric Multivitamin and Calcium Citrate (total of 1200- 1500 mg/day)? * take calcium citrate separately from Multivitamin with iron at least 2 hours apart and 4 hours apart from additional calcium www.[employer] - Bariatric Choice: 4 Complete Multivitamins (chewables) per day Www.bariatricchoice.com? - Bariatric Advantage: 2 Multivitamins and 3 Calcium Citrate Chewables per day * take calcium citrate separately from Multivitamin with iron at least 2 hours apart and 4 hours apart from additional calcium Www.[email or web address] Libres Pre-op goal weight: 529 pounds Protein needs: 98 gm per day Diet History: Breakfast - eggs, protein, 1 slice toast, orange juice/apple juice, +/- oatmeal/fruit Snack - none Lunch - salad (onion, lettuce, egg, +/- chicken) Snack - none Dinner - baked chicken, string beans, rice/potato OR fish, vegetable, starch Snack - cashews/peanuts Beverages - 64 fl oz water/propel Vitamins/Supplements - none Exercise- physical therapy exercises, walking Activity: 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 Resting Metabolic Rate: 3389 Malnutrition Screening Significant unintentional weight loss? No Eating less than 75% of usual intake for more than 2 weeks? No Potential Signs of Inflammation: no identifiable sources Nutritional status: Education Materials Provided: None this visit READINESS TO LEARN Cognitive ability: Alert and oriented Motivation to learn: Interested Family support: Unable to assess - Family not present Instruction provided to: Patient Patient learns best by: Multiple Methods Factors affecting learning: None Physical limitations affecting learning: None Likelihood of Adherence: Moderate Referred/Supervised by: Zaria GILLIAM Billing Type: Re-assess/15 min 2 units SIGNATURE: Rupesh Nova RD PATIENT NAME: Sherman Marie DATE: 12/31/2022 TIME: 8:13 AM PAGER: documented in this encounterT[facility]23 NoteHNO ID: [id number] Author: Shyla Burnett RD Service: ? Author Type: Registered Dietitian Type: Progress Notes Filed: 12/01/2022 1:51 PM Note Text: [facility] Nutrition Therapy: Virtual Consult - Re-assessment I have communicated my name and active licensure. The patient?s identity and physical location were verified at the time of this visit. Either the patient or their legal outside sales account representative has been informed of the risks and benefits of -- and alternatives to -- treatment through a remote evaluation and consents to proceed with the evaluation remotely. Nutrition Diagnosis: Overweight/obesity, related to, food/nutrition - related knowledge deficit, as evidenced by BMI above normative standard for age and gender RECOMMENDED MALNUTRITION DIAGNOSIS: NO MALNUTRITION IDENTIFIED NUTRITION CARE PLAN: Nutrition Intervention 12/01/2022: 1. Read Nutritional Guidelines Section of Your Guide to Surgery by next session [email or web address] 2. Do not skip meals. 3. Use protein shake 1x per day to replace any skipped meals or for breakfast -Aim for shakes <5 grams of total sugar, 20-30 grams of protein -Start to explore the protein shakes on page 39 in your Guideline booklet for the two-week full-liquid diet. Examples: Slim Fast Advanced Nutrition [place] Breakfast Essentials ?Light Start? Drink mixed with fat free or 1% milk Atkins 15 gram protein Boost Glucose Control OWYN 4. Use the Healthy Plate Method of portion control for lunch and dinner 4 oz lean meat (fish, chicken, pork tenderloin, turkey, seafood, eggs/cheese) 1/2 plate non starchy vegetables (salad, greens, cabbage, spinach, brussels sprouts, broccoli, carrots, celery, peppers, green beans, cauliflower) 1 cup starch/starchy vegetables (corn, peas, beans, winter squash, sweet potato, brown rice, whole grain pasta, whole grain bread products, quinoa) 5. Physical activity: Aim for 150 minutes of physical activity per week. 6. Drink 64 ounces per day water. Fluids should follow these guidelines: No carbonation, no caffeine, no calories, no alcohol. 7. Start to explore vitamins and minerals for post-op (3 weeks after surgery). You can find these on page 49 in your guideline booklet. Some examples of vitamins/mineral companies: - Bariatric Fusion: 4 Complete Chewable Multivitamins per day (2 in the AM, 2 in the PM) www.[email or web address].[employer] - [employer]: ?1 Bariatric Multivitamin and Calcium Citrate (total of 9468-2261 mg/day)? * take calcium citrate separately from Multivitamin with iron at least 2 hours apart and 4 hours apart from additional calcium www.[employer] - Bariatric Choice: 4 Complete Multivitamins (chewables) per day Www.[email or web address].[employer]? - Bariatric Advantage: 2 Multivitamins and 3 Calcium Citrate Chewables per day * take calcium citrate separately from Multivitamin with iron at least 2 hours apart and 4 hours apart from additional calcium [email or web address] Pre-op goal weight: 529 pounds Protein needs: 98 gm per day Nutrition Monitoring AND Evaluation: 1-2 lb per week weight loss Need for Follow up: 1 month, scheduling PROGRESS: Patient presents for follow up nutrition Virtual Consult in preparation for bariatric surgery. Interested in LSG (Dr. Enciso). Since last nutrition visit patient has lost 10 lbs. Diet recall reveals consistent eating patterns with 3 meals daily. Meals are within healthy plate method. Protein intake adequate with protein shakes not being used yet. Fluid intake adequate. Physical activity below recommendations. Patient meets the National Institutes of Health guidelines for weight loss surgery and has [employer] therefore is required to complete 6 consecutive months of Nutrition Intervention for clearance for surgery. Today is visit #2 out of 6 (Delpra 11/03/22, 12/01/22). Nutrition Intervention (Last encounter 11/03/22): 1. Read Nutritional Guidelines Section of Your Guide to Surgery by next session [email or web address] 2. Do not skip meals. 3. Use protein shake 1x per day to replace any skipped meals or for breakfast -Aim for shakes <5 grams of total sugar, 20-30 grams of protein -Start to explore the protein shakes on page 39 in your Guideline booklet for the two-week full-liquid diet. Examples: Slim Fast Advanced Nutrition [place] Breakfast Essentials ?Light Start? Drink mixed with fat free or 1% milk Atkins 15 gram protein Boost Glucose Control OWYN 4. Use the Healthy Plate Method of portion control for lunch and dinner 4 oz lean meat (fish, chicken, pork tenderloin, turkey, seafood, eggs/cheese) 1/2 plate non starchy vegetables (salad, greens, cabbage, spinach, brussels sprouts, brocc (more content not included)...[facility]08-09-2023 Instructions* Patient Instructions* Shyla Burnett, NEAL - 12/01/2022 1:50 PM EDT Nutrition Intervention 12/01/2022: 1. Read Nutritional Guidelines Section of Your Guide to Surgery by next session [email or web address] n 2. Do not skip meals. 3. Use protein shake 1x per day to replace any skipped meals or for breakfast -Aim for shakes <5 grams of total sugar, 20-30 grams of protein -Start to explore the protein shakes on page 39 in your Guideline booklet for the two-week full-liquid diet. Examples: Slim Fast Advanced Nutrition [place] Breakfast Essentials Light Start Drink mixed with fat free or 1% milk Atkins 15 gram protein Boost Glucose Control OWYN 4. Use the Healthy Plate Method of portion control for lunch and dinner 4 oz lean meat (fish, chicken, pork tenderloin, turkey, seafood, eggs/cheese) 1/2 plate non starchy vegetables (salad, greens, cabbage, spinach, brussels sprouts, broccoli, carrots, celery, peppers, green beans, cauliflower) 1 cup starch/starchy vegetables (corn, peas, beans, winter squash, sweet potato, brown rice, whole grain pasta, whole grain bread products, quinoa) 5. Physical activity: Aim for 150 minutes of physical activity per week. 6. Drink 64 ounces per day water. Fluids should follow these guidelines: No carbonation, no caffeine, no calories, no alcohol. 7. Start to explore vitamins and minerals for post-op (3 weeks after surgery). You can find these on page 49 in your guideline booklet. Some examples of vitamins/mineral companies: - Bariatric Fusion: 4 Complete Chewable Multivitamins per day (2 in the AM, 2 in the PM) www.[email or web address] - [employer]: ?1 Bariatric Multivitamin and Calcium Citrate (total of 1200- 1500 mg/day)? * take calcium citrate separately from Multivitamin with iron at least 2 hours apart and 4 hours apart from additional calcium www.[email or web address] - Bariatric Choice: 4 Complete Multivitamins (chewables) per day Www.[email or web address]? - Bariatric Advantage: 2 Multivitamins and 3 Calcium Citrate Chewables per day * take calcium citrate separately from Multivitamin with iron at least 2 hours apart and 4 hours apart from additional calcium [email or web address] Pre-op goal weight: 529 pounds Protein needs: 98 gm per day Nutrition Monitoring & Evaluation: 1-2 lb per week weight loss Need for Follow up: 1 month, scheduling [facility] History of Present illness Narrative* Shyla Burnett RD - 12/01/2022 1:30 PM EDT [facility] Nutrition Therapy: Virtual Consult - Re-assessment I have communicated my name and active licensure. The patient s identity and physical location wereverified at the time of this visit. Either the patient or their legal outside sales account representative has been informed of the risks and benefits of -- and alternatives to -- treatment through a remote evaluation andconsents to proceed with the evaluation remotely. Nutrition Diagnosis: Overweight/obesity, related to, food/nutrition - related knowledge deficit, asevidenced by BMI above normative standard for age and gender RECOMMENDED MALNUTRITION DIAGNOSIS: NO MALNUTRITION IDENTIFIED NUTRITION CARE PLAN: Nutrition Intervention 12/01/2022: 1. Read Nutritional Guidelines Section of Your Guide to Surgery by next session [email or web address] n 2. Do not skip meals. 3. Use protein shake 1x per day to replace any skipped meals or for breakfast -Aim for shakes <5 grams of total sugar, 20-30 grams of protein -Start to explore the protein shakes on page 39 in your Guideline booklet for the two-week full-liquid diet. Examples: Slim Fast Advanced Nutrition [place] Breakfast Essentials Light Start Drink mixed with fat free or 1% milk Atkins 15 gram protein Boost Glucose Control OWYN 4. Use the Healthy Plate Method of portion control for lunch and dinner 4 oz lean meat (fish, chicken, pork tenderloin, turkey, seafood, eggs/cheese) 1/2 plate non starchy vegetables (salad, greens, cabbage, spinach, brussels sprouts, broccoli, carrots, celery, peppers, green beans, cauliflower) 1 cup starch/starchy vegetables (corn, peas, beans, winter squash, sweet potato, brown rice, whole grain pasta, whole grain bread products, quinoa) 5. Physical activity: Aim for 150 minutes of physical activity per week. 6. Drink 64 ounces per day water. Fluids should follow these guidelines: No carbonation, no caffeine, no calories, no alcohol. 7. Start to explore vitamins and minerals for post-op (3 weeks after surgery). You can find these on page 49 in your guideline booklet. Some examples of vitamins/mineral companies: - Bariatric Fusion: 4 Complete Chewable Multivitamins per day (2 in the AM, 2 in the PM) www.bariatricfusion.com - [employer]: ?1 Bariatric Multivitamin and Calcium Citrate (total of 1200- 1500 mg/day)? * take calcium citrate separately from Multivitamin with iron at least 2 hours apart and 4 hours apart from additional calcium www.[email or web address] - Bariatric Choice: 4 Complete Multivitamins (chewables) per day [email or web address]? - Bariatric Advantage: 2 Multivitamins and 3 Calcium Citrate Chewables per day * take calcium citrate separately from Multivitamin with iron at least 2 hours apart and 4 hours apart from additional calcium [email or web address] Pre-op goal weight: 529 pounds Protein needs: 98 gm per day Nutrition Monitoring & Evaluation: 1-2 lb per week weight loss Need for Follow up: 1 month, scheduling PROGRESS: Patient presents for follow up nutrition Virtual Consult in preparation for bariatric surgery. Interested in LSG (Dr. Enciso). Since last nutrition visit patient has lost 10 lbs. Diet recall revealsconsistent eating patterns with 3 meals daily. Meals are within healthy plate method. Protein intake adequate with protein shakes not being used yet. Fluid intake adequate. Physical activity below recommendations. Patient meets the National Institutes of Health guidelines for weight loss surgery and has [employer] Insurance therefore is required to complete 6 consecutive months of Nutrition Intervention for clearance for surgery. Today is visit #2 out of 6 (Delpra 11/03/22, 12/01/22). Nutrition Intervention (Last encounter 11/03/22): 1. Read Nutritional Guidelines Section of Your Guide to Surgery by next session [email or web address] n 2. Do not skip meals. 3. Use protein shake 1x per day to replace any skipped meals or for breakfast -Aim for shakes <5 grams of total sugar, 20-30 grams of protein -Start to explore the protein shakes on page 39 in your Guideline booklet for the two-week full-liquid diet. Examples: Slim Fast Advanced Nutrition [place] Breakfast Essentials Light Start Drink mixed with fat free or 1% milk Atkins 15 gram protein Boost Glucose Control OWYN 4. Use the Healthy Plate Method of portion control for lunch and dinner 4 oz lean meat (fish, chicken, pork tenderloin, turkey, seafood, eggs/cheese) 1/2 plate non starchy vegetables (salad, greens, cabbage, spinach, brussels sprouts, broccoli, carrots, celery, peppers, green beans, cauliflower) 1 cup starch/starchy vegetables (corn, peas, beans, winter squash, sweet potato, brown rice, whole grain pasta, whole grain bread products, quinoa) 5. Physical activity: Aim for 150 minutes of physical activity per week. 6. Drink 64 ounces per day water. Fluids should follow these guidelines: No carbonation, no caffeine, no calories, no alcohol. 7. Start to explore vitamins and minerals for post-op (3 weeks after surgery). You can find these on page 49 in your guideline booklet. Some examples of vitamins/mineral companies: - Bariatric Fusion: 4 Complete Chewable Multivitamins per day (2 in the AM, 2 in the PM) [email or web address] - [employer]: ?1 Bariatric Multivitamin and Calcium Citrate (total of 1200- 1500 mg/day)? * take calcium citrate separately from Multivitamin with iron at least 2 hours apart and 4 hours apart from additional calcium www.[email or web address] - Bariatric Choice: 4 Complete Multivitamins (chewables) per day Www.[email or web address]? - Bariatric Advantage: 2 Multivitamins and 3 Calcium Citrate Chewables per day * take calcium citrate separately from Multivitamin with iron at least 2 hours apart and 4 hours apart from additional calcium [email or web address] Pre-op goal weight: 529 pounds Protein needs: 98 gm per day Actions to implement interventions: See assessment Diet History: Breakfast - boiled egg, 1 strip soto Snack - skips Lunch - Salad (with protein), soup OR chicken breast, vegetables Snack - skips Dinner - Mixed vegetables, meat, side salad, rice/pasta (<1 cup) Snack - skips OR small bag of chips Beverages - water Alcohol - None Vitamins/Supplements - No changes Activity: 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 Anthropometrics: Height: Last 1 Encounter Ht Readings: Date: Ht: 10/25/2022 180.3 cm (5' 11 ) Weight: Last 1 Encounter Wt Readings: Date: Wt: 12/01/2022 253.1 kg (558 lb) Body mass index is 77.83 kg/m . Resting Metabolic Rate: 3452 Malnutrition Screening Significant unintentional weight loss? No Eating less than 75% of usual intake for more than 2 weeks? No Potential Signs of Inflammation: no identifiable sources Nutritional status: Education Materials Provided: None this visit READINESS TO LEARN Cognitive ability: Alert and oriented Motivation to learn: Interested Family support: Unable to assess - Family not present Instruction provided to: Patient Patient learns best by: Multiple Methods Factors affecting learning: None Physical limitations affecting learning: None Likelihood of Adherence: High Referred by: Zaria GILLIAM Billing Type: Re-assess/15 min 1 unit SIGNATURE: Shyla Burnett RDN, ANA, DANTEN PATIENT NAME: Sherman Marie DATE: 12/01/2022 TIME: 1:49 PM PAGER: documented in this encounterT[facility] NoteHNO ID: [id number] Author: Jo Henson APRN.PANEL INSTRUMENT REPAIRER Service: ? Author Type: Nurse Practitioner Type: Progress Notes Filed: 12/16/2022 9:12 AM Note Text: I have communicated my name and active licensure. The patient's identity and physical location were verified at the time of this visit. Either the patient or their legal outside sales account representative has been informed of the risks and benefits of -- and alternatives to -- treatment through a remote evaluation and consents to proceed with the evaluation remotely. BMI MEDICAL CONSULT I have communicated my name and active licensure. The patient's identity and physical location were verified at the time of this visit. Either the patient or their legal outside sales account representative has been informed of the risks and benefits of -- and alternatives to -- treatment through a remote evaluation and consents to proceed with the evaluation remotely. History of Present Illness 42 year old year old male presents on November 26, 2022 for medical evaluation prior to anticipated surgical/medical treatment of obesity. The patient is interested in LSG with Dr. Enciso. Last 2 Encounter Wt Readings: Date: Wt: 11/26/2022 254 kg (560 lb) 11/03/2022 257.6 kg (568 lb) Body mass index is 78.1 kg/m?. In SNF since May 2022 Was using walker now better Nutritional History Age of onset: adult Rate of weight gain: gradual Inciting factors: genetics, larger portions Minimum weight: 433 lbs Maximum weight: 692 lbs How long at current weight: months Eating disorders? (bulimia, anorexia, binge eating?) no Family history of obesity? yes Prior weight loss attempts: exercise, water, limited times of eating Maximum weight lost: lost over 130 lbs recently Exercise: PT at [facility] No longer using a walker Functional Capacity: -Walk 4 blocks on level ground without symptoms? Yes -Climb 2 flights of stairs without symptoms? Yes -Heavy housework without symptoms? Yes Previous stress testing/cardiac testing and why? Yes 15 years ago Morbid obesity, obesity mortality risk score: BMI>50 and Male Sleep apnea screen: known ISI, adherent with CPAP PAST MEDICAL HISTORY Diagnosis Date Acquired hypothyroidism 11/26/2022 BMI 70 and over, adult (HCC) 11/26/2022 Gastroesophageal reflux disease without esophagitis 11/26/2022 Lymphedema 10/25/2022 ISI (obstructive sleep apnea) 11/26/2022 levothyroxine (SYNTHROID) 125 mcg tablet torsemide (DEMADEX) 100 mg tablet spironolactone (ALDACTONE) 25 mg tablet famotidine (PEPCID) 40 mg tablet traMADol (ULTRAM) 50 mg tablet ALLERGIES Allergen Reactions Lactose Other: See Comments Sulfa (Sulfonamide * Itching Vancomycin Itching PAST SURGICAL HISTORY Procedure Laterality Date REMOVAL GALLBLADDER Social History Tobacco Use Smoking status: Never Smokeless tobacco: Never Vaping Use Vaping Use: Never used Substance Use Topics Alcohol use: Not Currently Drug use: Never No family history on file. REVIEW OF SYSTEMS: Skin: negative Respiratory: +ISI on CPAP Cardiovascular: No history of chest pain,palpitation,orthopnea,cynosis Gastrointestinal: +GERD on H2 fly Genitourinary: No burning with urination, blood in urine or incontinence. Hematology/Lymphology Negative for prolonged bleeding, bruising easily or swollen nodes. Musculoskeletal: back pain and muscular weakness Psychiatric: negative Endocrine: thyroid disorder Neuro: No history of headaches, syncope, paralysis, seizures or tremors OBJECTIVE: Wt (!) 254 kg (560 lb) BMI 78.10 kg/m? Body mass index is 78.1 kg/m?. General appearance: noted to be in a facilty ASSESSMENT: Reviewed principles of energy metabolism, caloric intake and expenditure, and rationale for treatment program. Also reinforced need for reduced calorie, low fat diet and increased physical activity. Patient is a fair candidate for bariatric surgery. Patient education provided regarding procedures, behavior modification, risk and benefits of surgery, current choice for gastric sleeve. ASSESSMENT/PLAN: 1. BMI 70 and over, adult (HCC) - ICD9: V85.45, ICD10: Z68.45 (primary diagnosis) Weight decreasing - Behavioral intervention, - Medical nutrition therapy with dietitian, and - Psychology - CBC + DIFF - COMP METABOLIC PANEL - FERRITIN BLD - FOLATE SERUM - HGB A1C - IRON + TIBC - LIPID PANEL BASIC - NT PRO BNP - TSH BLD - VITAMIN B1 (THIAMINE), WHOLE BLOOD - VITAMIN B12 BLOOD - VITAMIN D 25 HYDROXY - NICOTINE AND METAB, UR - H PYLORI IGG AB - TOX SCREEN ROUT UR - ECG COMPLETE - XR CHEST 2V FRONTAL/LAT - US ABD RIGHT UPPER QUADRANT 2. Lymphedema - ICD9: 457.1, ICD10: I89.0 Stable, currently in SNF working with PT - ECG COMPLETE 3. Limited mobility - ICD9: V49.89, ICD10: Z74.09 As above 4. Gastroesophageal reflux disease without esophagitis - ICD9: 530.81, ICD10: K21.9 On H2 fly - COMP METABOLIC PANEL 5. ISI (obstructive sleep apnea) - (more content not included)...[facility]08-04-2023 History of Present illness Narrative* Jo Henson, TITI.PANEL INSTRUMENT REPAIRER - 11/26/2022 10:06 AM EDT Images from the original note were not included. I have communicated my name and active licensure. The patient's identity and physical location wereverified at the time of this visit. Either the patient or their legal outside sales account representative has been informed of the risks and benefits of -- and alternatives to -- treatment through a remote evaluation andconsents to proceed with the evaluation remotely. BMI MEDICAL CONSULT I have communicated my name and active licensure. The patient's identity and physical location wereverified at the time of this visit. Either the patient or their legal outside sales account representative has been informed of the risks and benefits of -- and alternatives to -- treatment through a remote evaluation andconsents to proceed with the evaluation remotely. History of Present Illness 42 year old year old male presents on November 26, 2022 for medical evaluation prior to anticipated surgical/medical treatment of obesity. The patient is interested in LSG with Dr. Enciso. Last 2 Encounter Wt Readings: Date: Wt: 11/26/2022 254 kg (560 lb) 11/03/2022 257.6 kg (568 lb) Body mass index is 78.1 kg/m . In SNF since May 2022 Was using walker now better Nutritional History Age of onset: adult Rate of weight gain: gradual Inciting factors: genetics, larger portions Minimum weight: 433 lbs Maximum weight: 692 lbs How long at current weight: months Eating disorders? (bulimia, anorexia, binge eating?) no Family history of obesity? yes Prior weight loss attempts: exercise, water, limited times of eating Maximum weight lost: lost over 130 lbs recently Exercise: PT at [facility] No longer using a walker Functional Capacity: -Walk 4 blocks on level ground without symptoms? Yes -Climb 2 flights of stairs without symptoms? Yes -Heavy housework without symptoms? Yes Previous stress testing/cardiac testing and why? Yes 15 years ago Morbid obesity, obesity mortality risk score: BMI>50 and Male Sleep apnea screen: known ISI, adherent with CPAP PAST MEDICAL HISTORY Diagnosis Date Acquired hypothyroidism 11/26/2022 BMI 70 and over, adult (HCC) 11/26/2022 Gastroesophageal reflux disease without esophagitis 11/26/2022 Lymphedema 10/25/2022 ISI (obstructive sleep apnea) 11/26/2022 levothyroxine (SYNTHROID) 125 mcg tablet torsemide (DEMADEX) 100 mg tablet spironolactone (ALDACTONE) 25 mg tablet famotidine (PEPCID) 40 mg tablet traMADol (ULTRAM) 50 mg tablet ALLERGIES Allergen Reactions Lactose Other: See Comments Sulfa (Sulfonamide * Itching Vancomycin Itching PAST SURGICAL HISTORY Procedure Laterality Date REMOVAL GALLBLADDER Social History Tobacco Use Smoking status: Never Smokeless tobacco: Never Vaping Use Vaping Use: Never used Substance Use Topics Alcohol use: Not Currently Drug use: Never No family history on file. REVIEW OF SYSTEMS: Skin: negative Respiratory: +ISI on CPAP Cardiovascular: No history of chest pain,palpitation,orthopnea,cynosis Gastrointestinal: +GERD on H2 fly Genitourinary: No burning with urination, blood in urine or incontinence. Hematology/Lymphology Negative for prolonged bleeding, bruising easily or swollen nodes. Musculoskeletal: back pain and muscular weakness Psychiatric: negative Endocrine: thyroid disorder Neuro: No history of headaches, syncope, paralysis, seizures or tremors OBJECTIVE: Wt (!) 254 kg (560 lb) BMI 78.10 kg/m Body mass index is 78.1 kg/m . General appearance: noted to be in a facilty ASSESSMENT: Reviewed principles of energy metabolism, caloric intake and expenditure, and rationalefor treatment program. Also reinforced need for reduced calorie, low fat diet and increased physical activity. Patient is a fair candidate for bariatric surgery. Patient education provided regarding procedures,behavior modification, risk and benefits of surgery, current choice for gastric sleeve. ASSESSMENT/PLAN: 1. BMI 70 and over, adult (HCC) - ICD9: V85.45, ICD10: Z68.45 (primary diagnosis) Weight decreasing - Behavioral intervention, - Medical nutrition therapy with dietitian, and - Psychology - CBC + DIFF - COMP METABOLIC PANEL - FERRITIN BLD - FOLATE SERUM - HGB A1C - IRON + TIBC - LIPID PANEL BASIC - NT PRO BNP - TSH BLD - VITAMIN B1 (THIAMINE), WHOLE BLOOD - VITAMIN B12 BLOOD - VITAMIN D 25 HYDROXY - NICOTINE & METAB, UR - H PYLORI IGG AB - TOX SCREEN ROUT UR - ECG COMPLETE - XR CHEST 2V FRONTAL/LAT - US ABD RIGHT UPPER QUADRANT 2. Lymphedema - ICD9: 457.1, ICD10: I89.0 Stable, currently in SNF working with PT - ECG COMPLETE 3. Limited mobility - ICD9: V49.89, ICD10: Z74.09 As above 4. Gastroesophageal reflux disease without esophagitis - ICD9: 530.81, ICD10: K21.9 On H2 fly - COMP METABOLIC PANEL 5. ISI (obstructive sleep apnea) - ICD9: 327.23, ICD10: G47.33 Adherent with CPAP - XR CHEST 2V FRONTAL/LAT 6. Acquired hypothyroidism - ICD9: 244.9, ICD10: E03.9 - continue current dose of Synthroid - TSH BLD Jo Henson APRN.PANEL INSTRUMENT REPAIRER Fax to [facility] [phone] - fax I spent a total of 60 minutes on the date of the service which included preparing to see the patient, completing clinical documentation, obtaining and/or reviewing separately obtained history, counseling and educating the patient/family/caregiver, ordering medications, tests, or procedures, and care coordination (not separately reported). documented in this [facility]23 NoteHNO ID: [id number] Author: Shyla Burnett RD Service: ? Author Type: Registered Dietitian Type: Progress Notes Filed: 11/03/2022 11:21 AM Note Text: [facility]: Virtual Consult - Initial Assessment I have communicated my name and active licensure. The patient?s identity and physical location were verified at the time of this visit. Either the patient or their legal outside sales account representative has been informed of the risks and benefits of -- and alternatives to -- treatment through a remote evaluation and consents to proceed with the evaluation remotely. Nutrition Diagnosis: Overweight/obesity, related to, food/nutrition - related knowledge deficit, as evidenced by BMI above normative standard for age and gender. RECOMMENDED MALNUTRITION DIAGNOSIS: NO MALNUTRITION IDENTIFIED NUTRITION CARE PLAN Nutrition Intervention 11/03/2022: 1. Read Nutritional Guidelines Section of Your Guide to Surgery by next session [email or web address] 2. Do not skip meals. 3. Use protein shake 1x per day to replace any skipped meals or for breakfast -Aim for shakes <5 grams of total sugar, 20-30 grams of protein -Start to explore the protein shakes on page 39 in your Guideline booklet for the two-week full-liquid diet. Examples: Slim Fast Advanced Nutrition [place] Breakfast Essentials ?Light Start? Drink mixed with fat free or 1% milk Atkins 15 gram protein Boost Glucose Control OWYN 4. Use the Healthy Plate Method of portion control for lunch and dinner 4 oz lean meat (fish, chicken, pork tenderloin, turkey, seafood, eggs/cheese) 1/2 plate non starchy vegetables (salad, greens, cabbage, spinach, brussels sprouts, broccoli, carrots, celery, peppers, green beans, cauliflower) 1 cup starch/starchy vegetables (corn, peas, beans, winter squash, sweet potato, brown rice, whole grain pasta, whole grain bread products, quinoa) 5. Physical activity: Aim for 150 minutes of physical activity per week. 6. Drink 64 ounces per day water. Fluids should follow these guidelines: No carbonation, no caffeine, no calories, no alcohol. 7. Start to explore vitamins and minerals for post-op (3 weeks after surgery). You can find these on page 49 in your guideline booklet. Some examples of vitamins/mineral companies: - Bariatric Fusion: 4 Complete Chewable Multivitamins per day (2 in the AM, 2 in the PM) www.[email or web address].[employer] - [employer]: ?1 Bariatric Multivitamin and Calcium Citrate (total of 0799-2622 mg/day)? * take calcium citrate separately from Multivitamin with iron at least 2 hours apart and 4 hours apart from additional calcium www.[employer] - Bariatric Choice: 4 Complete Multivitamins (chewables) per day Www.bariatricchoVenture Technologies.[employer]? - Bariatric Advantage: 2 Multivitamins and 3 Calcium Citrate Chewables per day * take calcium citrate separately from Multivitamin with iron at least 2 hours apart and 4 hours apart from additional calcium Www.[email or web address] Pre-op goal weight: 529 pounds Protein needs: 98 gm per day Nutrition Monitoring AND Evaluation: 1-2 lb per week weight loss Need for Follow up: 1 month, scheduling. Patient presents for initial nutrition consult for preparation in bariatric surgery. Patient is interested in LSG (Dr. Enciso). Height and weight discussed today. Presents with class III obesity, BMI of 79.22. Significant medical comorbidities include Lymphedema. Patient has higher (52 % TWL) weight loss expectations, anticipating weight loss of ~298 lbs., with desired weight of 270 lbs. following surgery. Patient has basic understanding of weight loss surgery and nutritional implications following surgery. Previous diet attempts include multiple fad diets, self-direct dieting. Weight history significant for hx of heaviest weight 692 lbs last year, with lowest weight in 2018 at 433 lbs. Greatest barrier to weight loss in the past includes lack of portion control, stress, lack of physical activity. Greatest motivation for surgery includes being healthier for himself and his kids. Diet recall indicates consistent eating patterns with 3 meals daily, following an overall healthy diet while patient currently residing in a facility. Patient verbalized that it was okay to discuss diet with facility [facility] (phone # [phone]). Fluid intake excessive in sugar sweetened juices, inconsistent with water intake. Physical activity below recommendations but is going to PT at this time. RD called [facility] to review pre/post op diet with facility RD. They currently have Premiere protein in the facility, which Sherman reports that he does not tolerate. Reviewed protein shakes with facility RD and will be trying a plant-based shake for him. Also will be keeping him on an overall healthy diet while in f (more content not included)...[facility] 11-03-2022 Instructions* Patient Instructions* Shyla Burnett RD - 11/03/2022 11:20 AM EDT Nutrition Intervention 11/03/2022: 1. Read Nutritional Guidelines Section of Your Guide to Surgery by next session [email or web address] n 2. Do not skip meals. 3. Use protein shake 1x per day to replace any skipped meals or for breakfast -Aim for shakes <5 grams of total sugar, 20-30 grams of protein -Start to explore the protein shakes on page 39 in your Guideline booklet for the two-week full-liquid diet. Examples: Slim Fast Advanced Nutrition [place] Breakfast Essentials Light Start Drink mixed with fat free or 1% milk Atkins 15 gram protein Boost Glucose Control OWYN 4. Use the Healthy Plate Method of portion control for lunch and dinner 4 oz lean meat (fish, chicken, pork tenderloin, turkey, seafood, eggs/cheese) 1/2 plate non starchy vegetables (salad, greens, cabbage, spinach, brussels sprouts, broccoli, carrots, celery, peppers, green beans, cauliflower) 1 cup starch/starchy vegetables (corn, peas, beans, winter squash, sweet potato, brown rice, whole grain pasta, whole grain bread products, quinoa) 5. Physical activity: Aim for 150 minutes of physical activity per week. 6. Drink 64 ounces per day water. Fluids should follow these guidelines: No carbonation, no caffeine, no calories, no alcohol. 7. Start to explore vitamins and minerals for post-op (3 weeks after surgery). You can find these on page 49 in your guideline booklet. Some examples of vitamins/mineral companies: - Bariatric Fusion: 4 Complete Chewable Multivitamins per day (2 in the AM, 2 in the PM) www.bariatricfusion.[employer] - [employer]: ?1 Bariatric Multivitamin and Calcium Citrate (total of 1200- 1500 mg/day)? * take calcium citrate separately from Multivitamin with iron at least 2 hours apart and 4 hours apart from additional calcium www.[employer] - Bariatric Choice: 4 Complete Multivitamins (chewables) per day Www.bariatricchoVenture Technologies.[employer]? - Bariatric Advantage: 2 Multivitamins and 3 Calcium Citrate Chewables per day * take calcium citrate separately from Multivitamin with iron at least 2 hours apart and 4 hours apart from additional calcium [email or web address] Pre-op goal weight: 529 pounds Protein needs: 98 gm per day Nutrition Monitoring & Evaluation: 1-2 lb per week weight loss Need for Follow up: 1 month, scheduling. [facility] History of Present illness Narrative* Shlya Burnett RD - 11/03/2022 10:45 AM EDT [facility] Nutrition [facility]: Virtual Consult - Initial Assessment I have communicated my name and active licensure. The patient s identity and physical location wereverified at the time of this visit. Either the patient or their legal outside sales account representative has been informed of the risks and benefits of -- and alternatives to -- treatment through a remote evaluation andconsents to proceed with the evaluation remotely. Nutrition Diagnosis: Overweight/obesity, related to, food/nutrition - related knowledge deficit, asevidenced by BMI above normative standard for age and gender. RECOMMENDED MALNUTRITION DIAGNOSIS: NO MALNUTRITION IDENTIFIED NUTRITION CARE PLAN Nutrition Intervention 11/03/2022: 1. Read Nutritional Guidelines Section of Your Guide to Surgery by next session [email or web address] n 2. Do not skip meals. 3. Use protein shake 1x per day to replace any skipped meals or for breakfast -Aim for shakes <5 grams of total sugar, 20-30 grams of protein -Start to explore the protein shakes on page 39 in your Guideline booklet for the two-week full-liquid diet. Examples: Slim Fast Advanced Nutrition [place] Breakfast Essentials Light Start Drink mixed with fat free or 1% milk Atkins 15 gram protein Boost Glucose Control OWYN 4. Use the Healthy Plate Method of portion control for lunch and dinner 4 oz lean meat (fish, chicken, pork tenderloin, turkey, seafood, eggs/cheese) 1/2 plate non starchy vegetables (salad, greens, cabbage, spinach, brussels sprouts, broccoli, carrots, celery, peppers, green beans, cauliflower) 1 cup starch/starchy vegetables (corn, peas, beans, winter squash, sweet potato, brown rice, whole grain pasta, whole grain bread products, quinoa) 5. Physical activity: Aim for 150 minutes of physical activity per week. 6. Drink 64 ounces per day water. Fluids should follow these guidelines: No carbonation, no caffeine, no calories, no alcohol. 7. Start to explore vitamins and minerals for post-op (3 weeks after surgery). You can find these on page 49 in your guideline booklet. Some examples of vitamins/mineral companies: - Bariatric Fusion: 4 Complete Chewable Multivitamins per day (2 in the AM, 2 in the PM) www.bariatricfusion.[employer] - [employer]: ?1 Bariatric Multivitamin and Calcium Citrate (total of 1200- 1500 mg/day)? * take calcium citrate separately from Multivitamin with iron at least 2 hours apart and 4 hours apart from additional calcium www.[employer] - Bariatric Choice: 4 Complete Multivitamins (chewables) per day [email or web address]? - Bariatric Advantage: 2 Multivitamins and 3 Calcium Citrate Chewables per day * take calcium citrate separately from Multivitamin with iron at least 2 hours apart and 4 hours apart from additional calcium Www.[email or web address] Pre-op goal weight: 529 pounds Protein needs: 98 gm per day Nutrition Monitoring & Evaluation: 1-2 lb per week weight loss Need for Follow up: 1 month, scheduling. Patient presents for initial nutrition consult for preparation in bariatric surgery. Patient is interested in LSG (Dr. Enciso). Height and weight discussed today. Presents with class III obesity, BMI of 79.22. Significant medical comorbidities include Lymphedema. Patient has higher (52 % TWL) weight loss expectations, anticipating weight loss of ~298 lbs., with desired weight of 270 lbs. following surgery. Patient has basic understanding of weight loss surgery and nutritional implications following surgery. Previous diet attempts include multiple fad diets, self-direct dieting. Weight history significant for hx of heaviest weight 692 lbs last year, with lowest weight in 2018 at 433 lbs. Gre atest barrier to weight loss in the past includes lack of portion control, stress, lack of physicalactivity. Greatest motivation for surgery includes being healthier for himself and his kids. Diet recall indicates consistent eating patterns with 3 meals daily, following an overall healthy diet while patient currently residing in a facility. Patient verbalized that it was okay to discuss diet with facility [facility] (phone # [phone]). Fluid intake excessive in sugar sweetened juices, inconsistent with water intake. Physical activity below recommendations but is going to PT at this time. RD called [facility] to review pre/post op diet with facility RD. They currently have Premiere protein in the facility, which Sherman reports that he does not tolerate. Reviewed protein shakes with facility RD and will be trying a plant- based shake for him. Also will be keeping him on an overall healthy diet while in facility. Reviewed fluids with RD as well. [place] body weight: 179 lbs. Excess body weight: 389 lbs. ([address] Enciso) Goal weight pre-op: 529 lbs. Protein needs estimated: 98 gm (1.2 g protein/kg IBW) Patient meets the National Institutes of Health guidelines for weight loss surgery and has [employer] therefore is required to complete 6 consecutive months of Nutrition Intervention for clearance for surgery. Today is visit #1 out of 6 (Radha 11/03/22). Patient's symptoms are: Weight Concerns: weight gain Diet History: Patient verifies allergy to dairy, tomatoes. Patient is on a regular diet at the facility. Patient has tried protein shakes in the past (dairy-free) but reports that he took 2 sips and his throat to close. 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 Resting Metabolic Rate: 3489 Malnutrition Screening Significant unintentional weight loss? No Eating less than 75% of usual intake for more than 2 weeks? No Potential Signs of Inflammation: no identifiable sources Education Materials Provided: BMI Nutrition Guidelines:Guide to Surgery READINESS TO LEARN Cognitive ability: Alert and oriented Motivation to learn: Interested Family support: Unable to assess - Family not present Instruction provided to: Patient Patient learns best by: Multiple Methods Factors affecting learning: None Physical limitations affecting learning: None Referred by: Zaria GILLIAM Billing Type: Initial Assess/15 min 2 units SIGNATURE: Shyla Burnett, SUDHEER, ANA, MFN PATIENT NAME: Sherman Marie DATE: 11/03/2022 TIME: 11:20 AM PAGER: [id number] documented in [facility] NoteHNO ID: [id number] Author: Michael Enciso MD Service: ? Author Type: Physician Type: Progress Notes Filed: 10/25/2022 2:48 PM Note Text: BARIATRIC SURGERY NEW PATIENT CONSULTATION HISTORY AND PHYSICAL Date: October 25, 2022 Time: 2:45 PM Name: Sherman Marie This visit was performed virtually. I have communicated my name and active licensure. The patient?s identity and physical location were verified at the time of this visit. Either the patient or their legal outside sales account representative has been informed of the risks and benefits of -- and alternatives to -- treatment through a remote evaluation and consents to proceed with the evaluation remotely. This is a 42 year old male with morbid obesity (Body mass index is 79.22 kg/m?.) who presents to clinic for consideration of bariatric surgery. Current weight 568 lbs Severe lymphedema Last year, he weighted 692 lbs. In the SNF since May 2022. PAST MEDICAL HISTORY: Lymphedema Limited mobility PAST SURGICAL HISTORY: None FAMILY HISTORY: No family history on file. SOCIAL HISTORY: MEDICATIONS: Torsemide Iron ALLERGIES: ALLERGIES Not on File REVIEW OF SYSTEMS: GENERAL: Negative for malaise, significant weight loss and fever NECK: Negative for lumps, goiter, pain and significant neck swelling RESPIRATORY: Negative for cough, wheezing or shortness of breath. CARDIOVASCULAR: Negative for chest pain, leg swelling or palpitations. GI: Negative for abdominal discomfort, blood in stools or black stools or change in bowel habits : No history of dysuria, frequency or incontinence MUSCULOSKELETAL: Negative for joint pain or swelling, back pain or muscle pain. SKIN: Negative for lesions, rash, and itching. PSYCH: Negative for sleep disturbance, mood disorder and recent psychosocial stressors. ENDOCRINE: Negative for cold or heat intolerance, polyuria, polydipsia and goiter. PHYSICAL EXAM: Patient reported Ht 180.3 cm (5' 11 ) Wt (!) 257.6 kg (568 lb) BMI 79.22 kg/m? General - Normal, healthy, cooperative, in no acute distress Able to interact verbally by video conference Psych - Orientation: normal to time place, person and situation Mood/Affect: Normal Head/Neuro - Normal size and shape, Facial appearance normal Pulmonary - respiratory effort normal Cardiovascular - patient describes extremities normal, warm, no cyanosis,no clubbing, and no edema Abdominal - Visible protrusions or hernias: No Skin - abnormal lesions not visualized Motor - patient seen sitting with normal appearing strength and coordination Assessment IMPRESSION: Sherman Marie is a 42 year old male with the following diagnosis and co-morbidities: Body mass index is 79.22 kg/m?. Diagnosis noted as above, no additional diagnosis at this time. This patient does meet the criteria for a surgical weight loss procedure according to NIH guidelines. PLAN: The plan of treatment for Sherman Marie is to continue with the consultations and tests ordered today in hopes of qualifying for pre-operative clearance for bariatric surgery. I have reviewed with this patient needed nutritional changes, post-operative recovery, and the potential for excess skin following surgery and subsequent weight loss. Risks of nicotine before and after bariatric surgery and risks of postoperative adverse events were also discussed with patient. Furthermore, information regarding probable and potential postoperative complications, dietary and medical postoperative limitations, and potential cosmetic sequelae has been given to patient. Patient is interested in: Sleeve gastrectomy I spent a total of 60 minutes on the date of the service which included preparing to see the patient, [id number] patient care, completing clinical documentation, obtaining and/or reviewing separately obtained history, and counseling and educating the patient/family/caregiver. Michael Enciso MD [facility] History of Present illness Narrative* Michael Enciso MD - 10/25/2022 2:29 PM EDT BARIATRIC SURGERY NEW PATIENT CONSULTATION HISTORY AND PHYSICAL Date: October 25, 2022 Time: 2:45 PM Name: Sherman Marie This visit was performed virtually. I have communicated my name and active licensure. The patient sidentity and physical location were verified at the time of this visit. Either the patient or theirlegal outside sales account representative has been informed of the risks and benefits of -- and alternatives to -- treatment through a remote evaluation and consents to proceed with the evaluation remotely. This is a 42 year old male with morbid obesity (Body mass index is 79.22 kg/m .) who presents to clinic for consideration of bariatric surgery. Current weight 568 lbs Severe lymphedema Last year, he weighted 692 lbs. In the SNF since May 2022. PAST MEDICAL HISTORY: Lymphedema Limited mobility PAST SURGICAL HISTORY: None FAMILY HISTORY: No family history on file. SOCIAL HISTORY: MEDICATIONS: Torsemide Iron ALLERGIES: ALLERGIES Not on File REVIEW OF SYSTEMS: GENERAL: Negative for malaise, significant weight loss and fever NECK: Negative for lumps, goiter, pain and significant neck swelling RESPIRATORY: Negative for cough, wheezing or shortness of breath. CARDIOVASCULAR: Negative for chest pain, leg swelling or palpitations. GI: Negative for abdominal discomfort, blood in stools or black stools or change in bowel habits : No history of dysuria, frequency or incontinence MUSCULOSKELETAL: Negative for joint pain or swelling, back pain or muscle pain. SKIN: Negative for lesions, rash, and itching. PSYCH: Negative for sleep disturbance, mood disorder and recent psychosocial stressors. ENDOCRINE: Negative for cold or heat intolerance, polyuria, polydipsia and goiter. PHYSICAL EXAM: Patient reported Ht 180.3 cm (5' 11 ) Wt (!) 257.6 kg (568 lb) BMI 79.22 kg/m General - Normal, healthy, cooperative, in no acute distress Able to interact verbally by video conference Psych - Orientation: normal to time place, person and situation Mood/Affect: Normal Head/Neuro - Normal size and shape, Facial appearance normal Pulmonary - respiratory effort normal Cardiovascular - patient describes extremities normal, warm, no cyanosis,no clubbing, and no edema Abdominal - Visible protrusions or hernias: No Skin - abnormal lesions not visualized Motor - patient seen sitting with normal appearing strength and coordination Assessment IMPRESSION: Sherman Marie is a 42 year old male with the following diagnosis and co-morbidities: Body mass index is 79.22 kg/m . Diagnosis noted as above, no additional diagnosis at this time. This patient does meet the criteria for a surgical weight loss procedure according to NIH guidelines. PLAN: The plan of treatment for Sherman Marie is to continue with the consultations and tests ordered today in hopes of qualifying for pre-operative clearance for bariatric surgery. I have reviewed with this patient needed nutritional changes, post-operative recovery, and the potential for excess skin following surgery and subsequent weight loss. Risks of nicotine before and after bariatric surgery and risks of postoperative adverse events were also discussed with patient. Furthermore, information regarding probable and potential postoperative complications, dietary and medical postoperative limitations, and potential cosmetic sequelae has been given to patient. Patient is interested in: Sleeve gastrectomy I spent a total of 60 minutes on the date of the service which included preparing to see the patient, [id number] patient care, completing clinical documentation, obtaining and/or reviewing separately obtained history, and counseling and educating the patient/family/caregiver. Michael Enciso MD [facility]oscopic [facility] B[facility]ric Surgery documented [facility] History of Past illness Narrative* Problem Noted Date Diagnosed Date Resolved Date Morbid obesity 10/25/2022 11/26/2022 documented as of this encounter (statuses as of 11/26/2022) [facility] illness Narrative* Problem Noted Date Diagnosed Date Resolved Date Morbid obesity 10/25/2022 11/26/2022 documented as of this encounter (statuses as of 12/01/2022) [address]-2023 History of Past illness Narrative* Problem Noted Date Diagnosed Date Resolved Date Morbid obesity 10/25/2022 11/26/2022 documented as of this encounter (statuses as of 12/07/2022) [facility] Narrative* Problem Noted Date Diagnosed Date Resolved Date Morbid obesity 10/25/2022 11/26/2022 documented as of this encounter (statuses as of 12/16/2022) [address]-2023 History of Past illness Narrative* Problem Noted Date Diagnosed Date Resolved Date Morbid obesity 10/25/2022 11/26/2022 documented as of this encounter (statuses as of 01/03/2023) [address]-2023 History of Past illness Narrative* Problem Noted Date Diagnosed Date Resolved Date Morbid obesity 10/25/2022 11/26/2022 documented as of this encounter (statuses as of 01/25/2023) [address]23 History of Past illness Narrative* Problem Noted Date Diagnosed Date Resolved Date Morbid obesity 10/25/2022 11/26/2022 documented as of this encounter (statuses as of 02/02/2023) [facility] Narrative* Problem Noted Date Diagnosed Date Resolved Date Morbid obesity 10/25/2022 11/26/2022 documented as of this encounter (statuses as of 03/14/2023) [facility] Narrative* Problem Noted Date Diagnosed Date Resolved Date Morbid obesity 10/25/2022 11/26/2022 documented as of this encounter (statuses as of 04/06/2023) [facility] note* Diagnosis Morbid obesity (HCC)- Primary Morbid obesity Lymphedema Other lymphedema Limited mobility [facility] [place] [facility]* Diagnosis BMI 70 and over, adult (HCC)- Primary Body Mass Index 70 and over, adult Dietary counseling Dietary surveillance and counseling [facility] [place] [facility]* Diagnosis BMI 70 and over, adult (HCC)- Primary Body Mass Index 70 and over, adult Lymphedema Other lymphedema Limited mobility Gastroesophageal reflux disease without esophagitis Esophageal reflux ISI (obstructive sleep apnea) Obstructive sleep apnea (adult) (pediatric) Acquired hypothyroidism Unspecified hypothyroidism [facility] [place] [facility]* Diagnosis BMI 70 and over, adult (HCC)- Primary Body Mass Index 70 and over, adult Dietary counseling Dietary surveillance and counseling [facility] [place] [facility]* Diagnosis BMI 70 and over, adult (HCC)- Primary Body Mass Index 70 and over, adult Dietary counseling and surveillance Dietary surveillance and counseling documented in this encounter [facility] [place] [facility] Diagnosis Psychological factors affecting morbid obesity- Primary Psychic factors associated with diseases classified elsewhere documented in this encounter [facility] [place] [facility]* Diagnosis BMI 70 and over, adult (HCC)- Primary Body Mass Index 70 and over, adult Dietary counseling and surveillance Dietary surveillance and counseling documented in this encounter [facility] [place] [facility]* Diagnosis Elevated serum creatinine- Primary Other nonspecific findings on examination of blood Lymphedema Other lymphedema Morbid obesity (HCC) Morbid obesity [facility] Diagnosis Aftercare following surgery- Primary Encounter for other specified aftercare documented in this encounter [facility] for referral (narrative)* Diagnostic Procedure Only (Routine) - Pending Review Specialty Diagnoses / Procedures Referred By Simone lucia Referred To Contact US IMAGING Diagnoses BMI 70 and over, adult (HCC) Procedures US ABD RIGHT UPPER QUADRANT US ABDOMINAL REAL TIME W/IMAGE LIMITED Jo Henson APRN.PANEL INSTRUMENT REPAIRER [address] [place] [address] [facility] Referral ID Status Reason Start Date Expiration Date Visits Requested Visits Authorized [id number] Pending Review Auto-Generat ed Referral 11/26/2022 12/26/2023 1 1 * Outpatient Procedure (Routine) - Pending Review Specialty Diagnoses / Procedures Referred By Contac t Referred To Contact [facility] Diagnoses BMI 70 and over, adult (HCC) Lymphedema Procedures ECG COMPLETE ECG ROUTINE ECG W/LEAST 12 LDS W/I&R Jo Henson APRN.PANEL INSTRUMENT REPAIRER [address] [place] [address] [facility] [address] [place] [id number] Referral ID Status Reason Start Date Expiration Date Visits Requested Visits Authorized [id number] Pending Review Auto-Generat ed Referral 11/26/2022 11/26/2023 1 1 [facility] Diagnostic Procedure Only (Routine) - Authorized Specialty Diagnoses / Procedures Referred By Contac t Referred To Contact [facility]AGING Diagnoses Elevated serum creatinine Procedures US KIDNEY/BLADDER US RETROPERITONEAL REAL TIME W/[place] [address] [place] [address] [place] [id number] Referral ID Status Reason Start Date Expiration Date Visits Requested Visits Authorized [id number] Authorized Auto-Generat ed Referral 05/12/2024 1 1 [facility] Summary Purpose Family History No Family History Records FoundNo Family History Records FoundNo Family History Records Found Advance Directives Documents on File Type Date Recorded Patient Vp Scientific Expl anation Advance Directive(s) 05/31/2023 11:15 AM Advance Directive(s) 05/26/2023 12:38 PM Documents on File Type Date Recorded Patient Vp Scientific Expl anation Advance Directive(s) 06/01/2023 1:18 PM Advance Directive(s) 05/31/2023 11:15 AM Advance Directive(s) 05/26/2023 12:38 PM Health Concerns Problem Noted Date Diagnosed Date Bariatric Surgery Mending Carrier 05/03/2023 Problem Noted Date Diagnosed Date 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 Surgery Mending Carrier 05/03/2023 Problem Noted Date Diagnosed Date Bariatric Surgery Mending Carrier 05/03/2023 Additional Source Comments Source Comments (unrecognize d section and content) In the event this informatio n is protected by the Federal Confidentiality of Alcohol and Drug Abuse Patient Records regulations: The Federal rules restrict any use of the information to criminally investigate or prosecute any alcohol or drug abuse patient.[facility] event this information is protected by the Federal Confidentiality of Alcohol and Drug Abuse Patient Records regulations: The Federal rules restrict any use of the information to criminally investigate or prosecute any alcohol or drug abuse patient.[facility] the event this information is protected by the Federal Confidentiality of Alcohol and Drug Abuse Patient Records regulations: The Federal rules restrict any use of the information to criminally investigate or prosecute any alcohol or drug abuse patient.[facility] the event this information is protected by the Federal Confidentiality of Alcohol and Drug Abuse Patient Records regulations: The Federal rules restrict any use of the information to criminally investigate or prosecute any alcohol or drug abuse patient.[facility] the event this information is protected by the Federal Confidentiality of Alcohol and Drug Abuse Patient Records regulations: The Federal rules restrict any use of the information to criminally investigate or prosecute any alcohol or drug abuse patient.[facility] the event this information is protected by the Federal Confidentiality of Alcohol and Drug Abuse Patient Records regulations: The Federal rules restrict any use of the information to criminally investigate or prosecute any alcohol or drug abuse patient.[facility] the event this information is protected by the Federal Confidentiality of Alcohol and Drug Abuse Patient Records regulations: The Federal rules restrict any use of the information to criminally investigate or prosecute any alcohol or drug abuse patient.[facility] the event this information is protected by the Federal Confidentiality of Alcohol and Drug Abuse Patient Records regulations: The Federal rules restrict any use of the information to criminally investigate or prosecute any alcohol or drug abuse patient.[facility] the event this information is protected by the Federal Confidentiality of Alcohol and Drug Abuse Patient Records regulations: The Federal rules restrict any use of the information to criminally investigate or prosecute any alcohol or drug abuse patient.[facility] the event this information is protected by the Federal Confidentiality of Alcohol and Drug Abuse Patient Records regulations: The Federal rules restrict any use of the information to criminally investigate or prosecute any alcohol or drug abuse patient.[facility] the event this information is protected by the Federal Confidentiality of Alcohol and Drug Abuse Patient Records regulations: The Federal rules restrict any use of the information to criminally investigate or prosecute any alcohol or drug abuse patient.[facility] the event this information is protected by the Federal Confidentiality of Alcohol and Drug Abuse Patient Records regulations: The Federal rules restrict any use of the information to criminally investigate or prosecute any alcohol or drug abuse patient.[facility] the event this information is protected by the Federal Confidentiality of Alcohol and Drug Abuse Patient Records regulations: The Federal rules restrict any use of the information to criminally investigate or prosecute any alcohol or drug abuse patient.[facility] the event this information is protected by the Federal Confidentiality of Alcohol and Drug Abuse Patient Records regulations: The Federal rules restrict any use of the information to criminally investigate or prosecute any alcohol or drug abuse patient.[facility] the event this information is protected by the Federal Confidentiality of Alcohol and Drug Abuse Patient Records regulations: The Federal rules restrict any use of the information to criminally investigate or prosecute any alcohol or drug abuse patient.[facility] the event this information is protected by the Federal Confidentiality of Alcohol and Drug Abuse Patient Records regulations: The Federal rules restrict any use of the information to criminally investigate or prosecute any alcohol or drug abuse patient.[facility] the event this information is protected by the Federal Confidentiality of Alcohol and Drug Abuse Patient Records regulations: The Federal rules restrict any use of the information to criminally investigate or prosecute any alcohol or drug abuse patient[facility] Reason for Visit (unrecogniz ed section and content) Reason Comments Obesity Reason Comments Patient Education Assessment Reason Comments New Patient Reason Comments Patient Education Reassessment Reason Comments Consult Specialty Diagnoses / Procedures Referred By Contac t Referred To Contact Nephrology Diagnoses BMI 70 and over, adult (HCC) Elevated serum creatinine Procedures CONSULT TO NEPHROLOGY OFFICE/OUTPATIENT NEW HIGH MDM 60-74 MINUTES Jo Henson, LEAD ENTERPRISE ARCHITECT.PANEL INSTRUMENT REPAIRER [address] [place] [address] Referral ID Status Reason Start Date Expiration Date V isits Requested Visits Authorized [id number] Closed PCP Requested Referral 12/16/2022 12/16/2023 1 1 Reason Comments Post Op Reason Comments Follow Up Reason Comments [facility] Follow Up Reason Comments Follow Up Phone Call All Clear (unrecognized sect ion and content) No Status Records FoundNo Status Records FoundNo Status Records Found INFORMATION SOURCE (unrecogn ized section and content) DATE CREATED AUTHOR 12/02/2022 [facility] DATE CREATED AUTHOR AUTHOR'S ORGANIZ ATION 06/05/2023 [facility] DATE CREATED AUTHOR AUTHOR'S ORGANIZ ATION 06/07/2023 [facility] Care Teams (unrecognized sec tion and content) Medical Biller/Coder Relationship Specialty Start Date End Date Kishor Snyder PA-C [address] [place] [address] PCP - General Internal Medicine 05/05/23 Medical Biller/Coder Relationship Specialty Start Date End Date Kishor Snyder PA-C [address] [place] [address] PCP - General Internal Medicine 05/05/23 Medical Biller/Coder Relationship Specialty Start Date End Date Kishor Snyder PA-C [address] [place] [address] PCP - General Internal Medicine 05/05/23 FOR RECORDS PERTAINING TO PATIENTS WHO ARE OR HAVE BEEN ENROLLED IN A CHEMICAL DEPENDENCY/SUBSTANCEABUSE PROGRAM, SOME INFORMATION MAY BE OMITTED. This clinical summary was aggregated from multiple sources. Caution should be exercised in using it in the provision of clinical care. This summary normalizes information from multiple sources, and as a consequence, information in this document may materially change the coding, format and clinical context of patient data. In addition, data may be omitted in some cases. CLINICAL DECISIONS SHOULD BE BASED ON THE PRIMARY CLINICAL RECORDS. [employer] [facility]. provides no warranty or guarantee of the accuracy or completeness of information in this document.
[2023-06-08 21:51] VITALS: PULSE 85
--- NOTE | 2023-06-08 21:55 | XR_ITS ---
[address] [address] Patient Name: SHERMAN THOMPSON MRN: [id number] date: 1980 Sex: M Assigned Patient Location: ED.MAIN Current Patient Location: ED.MAIN Accession/Order Number: [id number] Exam Date: 06/08/2023 22:00 Report Date: 06/08/2023 22:29 At the request of: LÓPEZ MARKER Procedure: XR wrist RT 2V EXAM: XR wrist RT 2V HISTORY: wrist pain COMPARISON: None. FINDINGS/IMPRESSION: 1. No acute fracture or dislocation 2. Scapholunate and lunotriquetral intervals are intact. 3. No acute fracture or dislocation. 4. Mild ulnar negative variance. Electronically authenticated by: CAMILLA ESPINOZA Date: 06/08/2023 22:29
[2023-06-08 22:19] LABS: Basophils Percent Auto 0.3 % (0.2-2.0); Eosinophils Absolute Auto 0.1 10^3/uL (0.0-0.7); Eosinophils Percent Auto 1.3 % (0.9-7.0); Hematocrit 36.5 % (42.0-54.0); Hemoglobin 10.8 g/dL (14.0-18.0); Immature Granulocytes Abs Auto 0.04 10^3/uL (0.00-0.03); Immature Granulocytes Pct Auto 0.5 % (0.0-0.5); Lymphocytes Absolute Auto 0.7 10^3/uL (1.2-3.8); Lymphocytes Percent Auto 9.7 % (20.5-60.0); Mean Corpuscular HGB Conc 29.6 g/dL (29.9-35.2); Mean Corpuscular Hemoglobin 27.7 pg (25.9-34.0); Mean Corpuscular Volume 93.6 fL (80.0-94.0); Mean Platelet Volume 11.3 fL (9.5-13.5); Monocytes Absolute Auto 0.8 10^3/uL (0.3-0.8); Monocytes Percent Auto 10.6 % (1.7-12.0); Neutrophils Absolute Auto 5.9 10^3/uL (1.4-6.5); Neutrophils Percent Auto 77.6 % (43.0-75.0); Platelet Count 191 10^3/uL (150-450); Red Cell Distribution Width 15.7 % (11.0-15.0); White Blood Count 7.5 10^3/uL (4.0-11.0)
[2023-06-08 22:25] LABS: Erythrocyte Sedimentation Rate >130 mm/hr (<=15)
[2023-06-08] MEDS: ONDANSETRON 4 MG RAPDIS TABLET SL (22:28)
[2023-06-08] MEDS: OXYCODONE HCL/ACETAMINOPHEN 5MG/325MG 1 TAB PO ×2 (22:28→23:49)
[2023-06-08 22:37] LABS: Alanine Aminotransferase 25 U/L (16-63); Albumin Globulin Ratio 0.6; Albumin Level 3.2 g/dL (3.4-5.0); Alkaline Phosphatase 46 U/L (46-116); Anion Gap 10.4; Aspartate Amino Transferase 15 U/L (15-37); BUN Creatinine Ratio 8.8; Bilirubin Total 1.9 mg/dL (0.2-1.0); Calcium 8.8 mg/dL (8.5-10.1); Carbon Dioxide 34.8 mmol/L (21.0-32.0); Chloride 100 mmol/L (98-107); Estimated GFR (African America >60 (>=60); Estimated GFR (Non-African Ame 56 (>=60); Globulin 5.2 g/dL; Glucose 99 mg/dL (74-106); Potassium 3.2 mmol/L (3.5-5.1); Sodium 142 mmol/L (136-145); Total Protein 8.4 g/dL (6.4-8.2); Uric Acid 12.7 mg/dL (3.5-7.2)
== END 2023-06-09 03:02 | disposition home or self-care (01) ==
PROVIDERS: Emergency Provider Emergency Medicine
DX: M10.9 Gout, unspecified (principal); E66.01 Morbid (severe) obesity due to excess calories; Z68.45 Body mass index [BMI] 70 or greater, adult; Z98.84 Bariatric surgery status; I13.0 Hypertensive heart and chronic kidney disease with heart failure and stage 1 through stage 4 chronic kidney disease, or unspecified chronic kidney disease; N18.9 Chronic kidney disease, unspecified; I50.32 Chronic diastolic (congestive) heart failure; E11.22 Type 2 diabetes mellitus with diabetic chronic kidney disease; I27.20 Pulmonary hypertension, unspecified; Z86.16 Personal history of COVID-19; E03.9 Hypothyroidism, unspecified; F32.A Depression, unspecified; K21.9 Gastro-esophageal reflux disease without esophagitis; G47.33 Obstructive sleep apnea (adult) (pediatric); Z79.899 Other long term (current) drug therapy; Z79.890 Hormone replacement therapy; Z90.49 Acquired absence of other specified parts of digestive tract
CPT/HCPCS: 36415; 73100; 80053; 84550; 85025; 85652; 99284; Q0162

== ENCOUNTER 2023-11-07 17:48 | Emergency (ER) | payer MEDICARE, MEDICAID, SELFPAY ==
[2023-11-07] VITALS (20 sets, daily range): BP systolic 115–128; BP diastolic 67–70; PULSE 74–115; TEMP 37; O2SAT 96–100; BMI 69.3
--- NOTE | 2023-11-07 17:57 | CT_ITS ---
[address] [address] Patient Name: SHERMAN THOMPSON MRN: [id number] date: 1980 Sex: M Assigned Patient Location: ER Current Patient Location: ER Accession/Order Number: [id number] Exam Date: 11/07/2023 19:45 Report Date: 11/07/2023 21:11 At the request of: CLEO CARRILLO Procedure: CT head/brain wo con EXAM: CT cervical spine wo con, CT head/brain wo con, CT facial bones wo con, CT thoracic spine wo con, CT lumbar spine wo con CLINICAL INDICATION: Fall COMPARISON: None TECHNIQUE: Unenhanced computerized tomography of the head and facial bones was performed. Automated dose reduction technique was employed. Multiple axial slices of the cervical, thoracic and lumbar spine were obtained without contrast and with coronal and sagittal reformatted images. FINDINGS: The ventricles are normal in size, configuration, and position for age. There is no intra- or extra-axial mass, hemorrhage, or fluid collection. No areas of abnormal mass effect or attenuation are noted. Visualized paranasal sinuses are free of mucosal disease. No depressed calvarial fracture. No displaced facial bone fractures. Vertebral height and alignment is preserved. No acute fracture or subluxation. Mild multilevel degenerative changes of the spine worst at C5-C6, C6/C7 and L4-L5. Mild spinal canal and neural foraminal stenosis throughout the mid to lower cervical spine. Moderate bilateral neural foraminal stenosis at L4-L5. The atlanto occipital joint is maintained.The odontoid and lateral masses are intact. The prevertebral soft tissues are within normal limits. 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 Grossly patent thoracic spinal canal and neural foramina. The adjacent structures appear intact. The visualized soft tissues of the neck are normal. Hepatic steatosis. Otherwise unremarkable soft tissues. CT/CT head/brain wo con IMPRESSION: 1. No acute intracranial abnormality noted. 2. No displaced facial bone fractures. 3. No acute fracture or subluxation of the spine. Mild multilevel degenerative changes of the cervical, thoracic and lumbar spine. Electronically authenticated by: THERESA BRUCE Date: 11/07/2023 21:11
--- NOTE | 2023-11-07 17:57 | CT_ITS ---
[address] [address] Patient Name: SHERMAN THOMPSON MRN: [id number] date: 1980 Sex: M Assigned Patient Location: ER Current Patient Location: Accession/Order Number: [id number] Exam Date: 11/07/2023 19:45 Report Date: 11/07/2023 21:11 At the request of: CLEO CRARILLO Procedure: CT facial bones wo con EXAM: CT cervical spine wo con, CT head/brain wo con, CT facial bones wo con, CT thoracic spine wo con, CT lumbar spine wo con CLINICAL INDICATION: Fall COMPARISON: None TECHNIQUE: Unenhanced computerized tomography of the head and facial bones was performed. Automated dose reduction technique was employed. Multiple axial slices of the cervical, thoracic and lumbar spine were obtained without contrast and with coronal and sagittal reformatted images. FINDINGS: The ventricles are normal in size, configuration, and position for age. There is no intra- or extra-axial mass, hemorrhage, or fluid collection. No areas of abnormal mass effect or attenuation are noted. Visualized paranasal sinuses are free of mucosal disease. No depressed calvarial fracture. No displaced facial bone fractures. Vertebral height and alignment is preserved. No acute fracture or subluxation. Mild multilevel degenerative changes of the spine worst at C5-C6, C6/C7 and L4-L5. Mild spinal canal and neural foraminal stenosis throughout the mid to lower cervical spine. Moderate bilateral neural foraminal stenosis at L4-L5. The atlanto occipital joint is maintained.The odontoid and lateral masses are intact. The prevertebral soft tissues are within normal limits. 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 Grossly patent thoracic spinal canal and neural foramina. The adjacent structures appear intact. The visualized soft tissues of the neck are normal. Hepatic steatosis. Otherwise unremarkable soft tissues. CT/CT facial bones wo con IMPRESSION: 1. No acute intracranial abnormality noted. 2. No displaced facial bone fractures. 3. No acute fracture or subluxation of the spine. Mild multilevel degenerative changes of the cervical, thoracic and lumbar spine. Electronically authenticated by: THERESA BRUCE Date: 11/07/2023 21:11
--- NOTE | 2023-11-07 17:57 | CT_ITS ---
[address] [address] Patient Name: SHERMAN THOMPSON MRN: [id number] date: 1980 Sex: M Assigned Patient Location: ER Current Patient Location: Accession/Order Number: [id number] Exam Date: 11/07/2023 19:45 Report Date: 11/07/2023 21:11 At the request of: CLEO CARRILLO Procedure: CT lumbar spine wo con EXAM: CT cervical spine wo con, CT head/brain wo con, CT facial bones wo con, CT thoracic spine wo con, CT lumbar spine wo con CLINICAL INDICATION: Fall COMPARISON: None TECHNIQUE: Unenhanced computerized tomography of the head and facial bones was performed. Automated dose reduction technique was employed. Multiple axial slices of the cervical, thoracic and lumbar spine were obtained without contrast and with coronal and sagittal reformatted images. FINDINGS: The ventricles are normal in size, configuration, and position for age. There is no intra- or extra-axial mass, hemorrhage, or fluid collection. No areas of abnormal mass effect or attenuation are noted. Visualized paranasal sinuses are free of mucosal disease. No depressed calvarial fracture. No displaced facial bone fractures. Vertebral height and alignment is preserved. No acute fracture or subluxation. Mild multilevel degenerative changes of the spine worst at C5-C6, C6/C7 and L4-L5. Mild spinal canal and neural foraminal stenosis throughout the mid to lower cervical spine. Moderate bilateral neural foraminal stenosis at L4-L5. The atlanto occipital joint is maintained.The odontoid and lateral masses are intact. The prevertebral soft tissues are within normal limits. 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 Grossly patent thoracic spinal canal and neural foramina. The adjacent structures appear intact. The visualized soft tissues of the neck are normal. Hepatic steatosis. Otherwise unremarkable soft tissues. CT/CT lumbar spine wo con IMPRESSION: 1. No acute intracranial abnormality noted. 2. No displaced facial bone fractures. 3. No acute fracture or subluxation of the spine. Mild multilevel degenerative changes of the cervical, thoracic and lumbar spine. Electronically authenticated by: THERESA BRUCE Date: 11/07/2023 21:11
--- NOTE | 2023-11-07 17:57 | CT_ITS ---
[address] [address] Patient Name: SHERMAN THOMPSON MRN: [id number] date: 1980 Sex: M Assigned Patient Location: ER Current Patient Location: Accession/Order Number: [id number] Exam Date: 11/07/2023 19:45 Report Date: 11/07/2023 23:10 At the request of: CLEO CARRILLO Procedure: CT chest w con EXAM: CT chest w con, CT abdomen pelvis w con HISTORY: Fall COMPARISON: None. TECHNIQUE: Dose reduction techniques were achieved by using automated exposure control and/or adjustment of mA and/or kV according to patient size and/or use of iterative reconstruction technique.CT of the chest, abdomen and pelvis with contrast. FINDINGS: CHEST: No supraclavicular adenopathy. No axillary adenopathy. Heart size is normal. No pericardial effusion. Mild patchy atelectasis at the posterior aspect of the right lower lobe. Lungs are otherwise clear. No large pulmonary lung nodules or masses. Thyroid gland is normal. No acute aortic abnormality. Aortic arch branch vessels are patent. No central pulmonary embolism. ABDOMEN/PELVIS: Hepatic steatosis. No focal hepatic mass. Cholecystectomy. Spleen is normal. Adrenal glands are normal. Pancreas is normal. Gastric bypass surgery. Adrenal glands are normal. Kidneys are normal. No hydronephrosis. No hydroureter. No nephroureterolithiasis. No bladder stones. No focal bladder wall thickening. No colonic dilation. No pericolonic fat stranding. Fatty infiltration of the colonic turcios, consistent with chronic inflammation. No small bowel dilation. No adjacent mesenteric edema. No inguinal, pelvic or retroperitoneal adenopathy. Moderate degeneration of the bilateral sacroiliac joints. Mild degeneration of the bilateral hip joints. Moderate degeneration at the L3-L4 and L4-L5 disc spaces. There is decreased sensitivity of the examination due to decreased penetration. CT/CT chest w con IMPRESSION: There is decreased sensitivity of the examination due to decreased penetration. 1. No acute traumatic abnormality of the chest, abdomen or pelvis. 2. Hepatic steatosis. No focal hepatic mass. 3. Cholecystectomy. 4. Gastric bypass surgery. 5. No acute aortic abnormality. No central pulmonary embolism. 6. Other findings as described. Electronically authenticated by: CAMILLA ESPINOZA Date: 11/07/2023 23:10
--- NOTE | 2023-11-07 17:57 | CT_ITS ---
[address] [address] Patient Name: SHERMAN THOMPSON MRN: [id number] date: 1980 Sex: M Assigned Patient Location: ER Current Patient Location: Accession/Order Number: [id number] Exam Date: 11/07/2023 19:45 Report Date: 11/07/2023 23:10 At the request of: CLEO CARRILLO Procedure: CT abdomen pelvis w con EXAM: CT chest w con, CT abdomen pelvis w con HISTORY: Fall COMPARISON: None. TECHNIQUE: Dose reduction techniques were achieved by using automated exposure control and/or adjustment of mA and/or kV according to patient size and/or use of iterative reconstruction technique.CT of the chest, abdomen and pelvis with contrast. FINDINGS: CHEST: No supraclavicular adenopathy. No axillary adenopathy. Heart size is normal. No pericardial effusion. Mild patchy atelectasis at the posterior aspect of the right lower lobe. Lungs are otherwise clear. No large pulmonary lung nodules or masses. Thyroid gland is normal. No acute aortic abnormality. Aortic arch branch vessels are patent. No central pulmonary embolism. ABDOMEN/PELVIS: Hepatic steatosis. No focal hepatic mass. Cholecystectomy. Spleen is normal. Adrenal glands are normal. Pancreas is normal. Gastric bypass surgery. Adrenal glands are normal. Kidneys are normal. No hydronephrosis. No hydroureter. No nephroureterolithiasis. No bladder stones. No focal bladder wall thickening. No colonic dilation. No pericolonic fat stranding. Fatty infiltration of the colonic turcios, consistent with chronic inflammation. No small bowel dilation. No adjacent mesenteric edema. No inguinal, pelvic or retroperitoneal adenopathy. Moderate degeneration of the bilateral sacroiliac joints. Mild degeneration of the bilateral hip joints. Moderate degeneration at the L3-L4 and L4-L5 disc spaces. There is decreased sensitivity of the examination due to decreased penetration. CT/CT abdomen pelvis w con IMPRESSION: There is decreased sensitivity of the examination due to decreased penetration. 1. No acute traumatic abnormality of the chest, abdomen or pelvis. 2. Hepatic steatosis. No focal hepatic mass. 3. Cholecystectomy. 4. Gastric bypass surgery. 5. No acute aortic abnormality. No central pulmonary embolism. 6. Other findings as described. Electronically authenticated by: CAMILLA Mckinnon: 11/07/2023 23:10
--- NOTE | 2023-11-07 17:57 | CT_ITS ---
[address] [address] Patient Name: SHERMAN THOMPSON MRN: [id number] date: 1980 Sex: M Assigned Patient Location: ER Current Patient Location: Accession/Order Number: [id number] Exam Date: 11/07/2023 19:45 Report Date: 11/07/2023 21:11 At the request of: CLEO CARRILLO Procedure: CT thoracic spine wo con EXAM: CT cervical spine wo con, CT head/brain wo con, CT facial bones wo con, CT thoracic spine wo con, CT lumbar spine wo con CLINICAL INDICATION: Fall COMPARISON: None TECHNIQUE: Unenhanced computerized tomography of the head and facial bones was performed. Automated dose reduction technique was employed. Multiple axial slices of the cervical, thoracic and lumbar spine were obtained without contrast and with coronal and sagittal reformatted images. FINDINGS: The ventricles are normal in size, configuration, and position for age. There is no intra- or extra-axial mass, hemorrhage, or fluid collection. No areas of abnormal mass effect or attenuation are noted. Visualized paranasal sinuses are free of mucosal disease. No depressed calvarial fracture. No displaced facial bone fractures. Vertebral height and alignment is preserved. No acute fracture or subluxation. Mild multilevel degenerative changes of the spine worst at C5-C6, C6/C7 and L4-L5. Mild spinal canal and neural foraminal stenosis throughout the mid to lower cervical spine. Moderate bilateral neural foraminal stenosis at L4-L5. The atlanto occipital joint is maintained.The odontoid and lateral masses are intact. The prevertebral soft tissues are within normal limits. 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 Grossly patent thoracic spinal canal and neural foramina. The adjacent structures appear intact. The visualized soft tissues of the neck are normal. Hepatic steatosis. Otherwise unremarkable soft tissues. CT/CT thoracic spine wo con IMPRESSION: 1. No acute intracranial abnormality noted. 2. No displaced facial bone fractures. 3. No acute fracture or subluxation of the spine. Mild multilevel degenerative changes of the cervical, thoracic and lumbar spine. Electronically authenticated by: THERESA BRUCE Date: 11/07/2023 21:11
--- NOTE | 2023-11-07 17:57 | CT_ITS ---
[address] [address] Patient Name: SHERMAN THOMPSON MRN: [id number] date: 1980 Sex: M Assigned Patient Location: ER Current Patient Location: Accession/Order Number: [id number] Exam Date: 11/07/2023 19:45 Report Date: 11/07/2023 21:11 At the request of: CLEO CARRILLO Procedure: CT cervical spine wo con EXAM: CT cervical spine wo con, CT head/brain wo con, CT facial bones wo con, CT thoracic spine wo con, CT lumbar spine wo con CLINICAL INDICATION: Fall COMPARISON: None TECHNIQUE: Unenhanced computerized tomography of the head and facial bones was performed. Automated dose reduction technique was employed. Multiple axial slices of the cervical, thoracic and lumbar spine were obtained without contrast and with coronal and sagittal reformatted images. FINDINGS: The ventricles are normal in size, configuration, and position for age. There is no intra- or extra-axial mass, hemorrhage, or fluid collection. No areas of abnormal mass effect or attenuation are noted. Visualized paranasal sinuses are free of mucosal disease. No depressed calvarial fracture. No displaced facial bone fractures. Vertebral height and alignment is preserved. No acute fracture or subluxation. Mild multilevel degenerative changes of the spine worst at C5-C6, C6/C7 and L4-L5. Mild spinal canal and neural foraminal stenosis throughout the mid to lower cervical spine. Moderate bilateral neural foraminal stenosis at L4-L5. The atlanto occipital joint is maintained.The odontoid and lateral masses are intact. The prevertebral soft tissues are within normal limits. 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 Grossly patent thoracic spinal canal and neural foramina. The adjacent structures appear intact. The visualized soft tissues of the neck are normal. Hepatic steatosis. Otherwise unremarkable soft tissues. CT/CT cervical spine wo con IMPRESSION: 1. No acute intracranial abnormality noted. 2. No displaced facial bone fractures. 3. No acute fracture or subluxation of the spine. Mild multilevel degenerative changes of the cervical, thoracic and lumbar spine. Electronically authenticated by: THERESA BRUCE Date: 11/07/2023 21:11
--- NOTE | 2023-11-07 18:01 | ED_ITS ---
Documented by User: [email or web address] Obrien 11/07/23 21:17 HPI HPI - General Adult General Chief complaint: Fall Stated complaint: FALL Time Seen by Provider: 11/07/23 17:49 Source: patient History of Present Illness HPI narrative: Patient is a 43-year-old male with a history of morbid obesity, previous gastric bypass who presents to the emergency department by EMS from his apartment complex in [place] where he lives. EMS was dispatched when the patient tripped and fell while doing laundry, he fell forward striking his face in addition to his right chest wall. He now complains of diffuse pain in the face, neck, the entire back where he has chronic pain normally. He also complains of pain to the right chest wall, hips. He was able to stand and transfer from the EMS cart to the bed with assistance. He does not take any blood thinners. EMS states they found the patient supine on the floor, he did not have any loss of consciousness or vomiting Related Data Home Medications ?Medication ?Instructions ?Recorded ?Confirmed baclofen 10 mg tablet 5 mg PO Q8H 03/23/23 03/23/23 calcium carbonate (Tums) 200 mg PO DAILY 03/23/23 03/23/23 cyanocobalamin (vitamin B-12) 1,000 mcg PO DAILY 03/23/23 03/23/23 1,000 mcg tablet famotidine 40 mg tablet 40 mg PO DAILY 03/23/23 03/23/23 ferrous sulfate 325 mg (65 mg 325 mg PO DAILY 03/23/23 03/23/23 iron) tablet (FeroSul) hydrocodone 5 mg-acetaminophen 325 1 tab PO Q12H 03/23/23 03/23/23 mg tablet levothyroxine 125 mcg tablet 125 mcg PO DAILY 03/23/23 03/23/23 (Euthyrox) lidocaine HCl 4 % topical cream 1 applic topical Q8H PRN back pain 03/23/23 03/23/23 (Aspercreme (lidocaine HCl)) spironolactone 25 mg tablet 25 mg PO TID 03/23/23 03/23/23 torsemide 100 mg tablet 100 mg PO DAILY 03/23/23 03/23/23 tramadol 50 mg tablet 25 mg PO Q6H PRN pain 03/23/23 03/23/23 urea 20 % topical cream 1 applic topical DAILY PRN dry skin 03/23/23 03/23/23 acetaminophen 325 mg tablet 650 mg PO Q4H PRN pain 03/24/23 03/24/23 albuterol sulfate 0.63 mg/3 mL 0.833 mg inhalation Q4H PRN 03/24/23 03/24/23 solution for nebulization shortness of breath or wheezing diphenhydramine HCl 25 mg tablet 50 mg PO Q6H PRN itching 03/24/23 03/24/23 (Banophen) guaifenesin 100 mg/5 mL oral 400 mg PO Q4H PRN cough 03/24/23 03/24/23 liquid (Chest Congestion Relief) hydrocortisone 1 % topical cream 1 applic topical QID PRN itching 03/24/23 03/24/23 nystatin 100,000 unit/gram topical 1 applic topical BID 03/24/23 03/24/23 powder (Nyamyc) ondansetron HCl 4 mg tablet 4 mg PO Q4H PRN nausea and vomiting 03/24/23 03/24/23 Previous Rx's ?Medication ?Instructions ?Recorded prednisone 10 mg tablets in a dose 10 mg PO DAILY #39 ea 03/24/23 pack famotidine 40 mg tablet (Pepcid) 40 mg PO DAILY #30 tabs 03/25/23 Allergies Allergy/AdvReac Type Severity Reaction Status Date / Time latex Allergy Verified 03/24/23 04:10 Milk Containing Products Allergy Verified 03/24/23 04:10 (Dairy) Sulfa (Sulfonamide Allergy Verified 03/24/23 04:10 Antibiotics) tomato Allergy Verified 03/24/23 04:10 vancomycin Allergy Verified 03/24/23 04:10 Opioid HPI Opioid Management Most Recent Opioid Data: Last Pain Scale 9 11/07/23 20:20 Review of Systems ROS Constitutional Denies: fever or chills Ears, nose, mouth, and throat Denies: throat pain or nasal congestion Cardiovascular Reports: chest pain Respiratory Denies: shortness of breath Gastrointestinal Reports: abdominal pain; Denies: nausea or vomiting Musculoskeletal Reports: back pain, neck pain and extremity pain Integumentary/Breast Denies: rash Neurological Reports: headache; Denies: numbness in extremities or weakness in extremities Hematologic/Lymphatic Denies: easy bruising or easy bleeding [facility] Medical History (Updated 11/07/23 @ 23:23 by Caitie Carlos MD) Stage 3a chronic kidney disease (CKD) ?N18.31 - Chronic kidney disease, stage 3a (ICD-10) Chronic heart failure with preserved ejection fraction (HFpEF) ?I50.32 - Chronic diastolic (congestive) heart failure (ICD-10) Diabetes ?E11.9 - Type 2 diabetes mellitus without complications (ICD-10) Pulmonary hypertension ?I27.20 - Pulmonary hypertension, unspecified (ICD-10) Dependence on supplemental oxygen ?Z99.81 - Dependence on supplemental oxygen (ICD-10) COVID-19 ?U07.1 - COVID-19 (ICD-10) Chronic kidney disease, stage 3 ?N18.30 - Chronic kidney disease, stage 3 unspecified (ICD-10) Respiratory disorders in diseases classified elsewhere ?J99 - Respiratory disorders in diseases classified elsewhere (ICD-10) Hypothyroidism ?E03.9 - Hypothyroidism, unspecified (ICD-10) Dependence on respirator [ventilator] status ?Z99.11 - Dependence on respirator [ventilator] status (ICD-10) Muscle weakness (generalized) ?M62.81 - Muscle weakness (generalized) (ICD-10) Unsteadiness on feet ?R26.81 - Unsteadiness on feet (ICD-10) Essential hypertension ?I10 - Essential (primary) hypertension (ICD-10) Depression ?F32.A - Depression, unspecified (ICD-10) GERD (gastroesophageal reflux disease) ?K21.9 - Gastro-esophageal reflux disease without esophagitis (ICD-10) Dorsalgia ?M54.9 - Dorsalgia, unspecified (ICD-10) Diastolic heart failure ?I50.30 - Unspecified diastolic (congestive) heart failure (ICD-10) Alveolar hypoventilation ?R06.89 - Other abnormalities of breathing (ICD-10) Morbid obesity due to excess calories ?E66.01 - Morbid (severe) obesity due to excess calories (ICD-10) Constipation ?K59.00 - Constipation, unspecified (ICD-10) Acute kidney failure ?N17.9 - Acute kidney failure, unspecified (ICD-10) Adjustment disorder with anxiety ?F43.22 - Adjustment disorder with anxiety (ICD-10) Anemia ?D64.9 - Anemia, unspecified (ICD-10) Hypoxia ?R09.02 - Hypoxemia (ICD-10) Chronic respiratory failure ?J96.10 - Chronic respiratory failure, unspecified whether with hypoxia or hypercapnia (ICD-10) Acute respiratory failure ?J96.00 - Acute respiratory failure, unspecified whether with hypoxia or hypercapnia (ICD-10) Lymphedema ?I89.0 - Lymphedema, not elsewhere classified (ICD-10) Obstructive sleep apnea ?G47.33 - Obstructive sleep apnea (adult) (pediatric) (ICD-10) Surgical History (Updated 03/24/23 @ 03:27 by Robert Ferreira) History of cholecystectomy ?Z90.49 - Acquired absence of other specified parts of digestive tract (ICD- 10) Family History (Updated 03/24/23 @ 03:30 by Robert Ferreira) Mother Family history of CHF (congestive heart failure) Family history of cancer Family history of diabetes mellitus Half-brother Family history of diabetes mellitus Other Family history of hypertension Social History Within the past year, how often did you have a drink containing alcohol: monthly or less Within the past year, how often did you have six or more drinks on one occasion: never Smoking status: Never smoker Non-prescribed substance use: denies use Previous occupational history: disabled Known occupational exposures/hazards: No Highest level of school completed/degree received: high school graduate Are you now , , , , never or living with a partner: In a typical week, how many times do you talk on the telephone with family, friends, or neighbors: 3 or more times per week How often do you get together with friends or relatives: once per week How often do you attend anabaptist or faith services: never Do you belong to any clubs or organizations such as anabaptist groups unions, fraternal or athletic groups, or school groups: no Total score: 1 Score interpretation: A score of less than or equal to 1 indicates the most socially isolated. Little interest or pleasure in doing things: several days Feeling down, depressed, or hopeless: not at all Feel stressed/tense/nervous/anxious/difficulty sleeping: not at all Due to disability, difficulty making decisions: No Gender Identity: male Exam Narrative Exam Narrative: Gen.: Awake, alert, in no distress Head: Normocephalic, faint ecchymosis to the left maxilla. No epistaxis or dental injury noted. ENT: Moist mucous membranes, diffuse tenderness of the cervical spine Respiratory: No respiratory distress, lungs clear bilaterally; right chest wall with faint ecchymosis and tenderness at the breast above the nipple Cardio: Regular rate and rhythm Gastrointestinal: Abdomen is soft, nondistended and nontender to palpation, pelvis is stable. Hips are tender Extremities: Moves extremities equally, no injuries noted; patient is able to stand and transfer on his lower extremities with no complaints of pain Psych: Normal mood and affect Neuro: No focal neuro deficit Skin: Warm, dry, intact Constitutional Vital Signs, click to edit/add: Last Vital Signs Temp 98.6 F 11/07/23 17:57 Pulse 90 11/07/23 22:40 Resp 18 11/07/23 22:40 BP 128/70 11/07/23 20:25 Pulse Ox 96 11/07/23 20:34 O2 Del Method Room Air 11/07/23 17:57 Course Vital Signs Vital signs: Vital Signs Temperature 98.6 F 11/07/23 17:57 Pulse Rate 115 H 11/07/23 17:57 Respiratory Rate 18 11/07/23 17:57 Blood Pressure 115/68 11/07/23 17:57 Pulse Oximetry 100 11/07/23 17:57 Oxygen Delivery Method Room Air 11/07/23 17:57 Temperature 98.6 F 11/07/23 17:57 Pulse Rate 90 11/07/23 22:40 Respiratory Rate 18 11/07/23 22:40 Blood Pressure 128/70 11/07/23 20:25 Pulse Oximetry 96 11/07/23 20:34 Oxygen Delivery Method Room Air 11/07/23 17:57 Medical Decision Making [facility] Narrative Medical decision making narrative: Patient treated with pain medication, he requested pain meds several times on arrival to the ER. He was given IV fluids, IV was established and labs were obtained. Radiology services requested a creatinine from the patient before his trauma CTs. He was sent for CTs of the head, facial bones, cervical spine, chest and abdomen and pelvis with contrast. He is resting comfortably after remedication after CTs. Labs show the patient has stable kidney function but his potassium is 2.3. He is on diuretics at home and does take potassium pills daily. He was given oral potassium and IV potassium while in the ER. CT results are pending at this time, case turned over to attending physician at this time ([id number]) SHARED APC VISIT, PHYSICIAN ATTESTATION: [id number] I performed a substantive part of the MDM during the patient?s E/M visit. I personally evaluated and examined the patient. I personally made or approved the documented management plan and acknowledge its risk of complications. Medical Records Medical records reviewed: Yes I reviewed the patient's medical records Lab Data Lab results reviewed: Yes I reviewed the patient's lab results Labs: Lab Results 11/07/23 11/07/23 Range/Units 18:03 18:55 WBC 6.8 (4.0-11.0) 10^3/uL RBC 3.32 L (4.70-6.10) 10^6/uL Hgb 10.5 L (14.0-18.0) g/dL Hct 31.9 L (42.0-54.0) % MCV 96.1 H (80.0-94.0) fL MCH 31.6 (25.9-34.0) pg MCHC 32.9 (29.9-35.2) g/dL RDW 14.3 (11.0-15.0) % Plt Count 150 (150-450) 10^3/uL MPV 12.9 (9.5-13.5) fL Neut % (Auto) 72.8 (43.0-75.0) % Lymph % (Auto) 15.3 L (20.5-60.0) % [place] % (Auto) 8.4 (1.7-12.0) % Eos % (Auto) 1.8 (0.9-7.0) % Baso % (Auto) 0.4 (0.2-2.0) % Neut # (Auto) 5.0 (1.4-6.5) 10^3/uL Lymph # (Auto) 1.0 L (1.2-3.8) 10^3/uL [place] # (Auto) 0.6 (0.3-0.8) 10^3/uL Eos # (Auto) 0.1 (0.0-0.7) 10^3/uL Baso # (Auto) 0.0 (0.0-0.1) 10^3/uL Abs Immat Gran (auto) 0.09 H (0.00-0.03) 10^3/uL Imm/Tot Granulo (auto) 1.3 H (0.0-0.5) % PT 11.9 H (9.0-11.6) sec INR 1.14 Sodium 141 (136-145) mmol/L Potassium 2.3 L* (3.5-5.1) mmol/L Chloride 98 (98-107) mmol/L Carbon Dioxide 39.5 H (21.0-32.0) mmol/L Anion Gap 5.8 BUN 9.0 (7.0-18.0) mg/dL Creatinine 1.63 H (0.70-1.30) mg/dL Est GFR ( Amer) 56 L (>=60) Est GFR (Non-Af Amer) 46 L (>=60) BUN/Creatinine Ratio 5.5 Glucose 104 (74-106) mg/dL Calcium 7.0 L (8.5-10.1) mg/dL Total Bilirubin 2.4 H (0.2-1.0) mg/dL AST 99 H (15-37) U/L ALT 59 (16-63) U/L Alkaline Phosphatase 156 H (46-116) U/L Total Protein 7.3 (6.4-8.2) g/dL Albumin 2.5 L (3.4-5.0) g/dL Globulin 4.8 g/dL Albumin/Globulin Ratio 0.[address] scan - head: Attestation: I have reviewed the pertinent imaging results. Radiologist's impression: ITS Impressions Abdomen/Pelvis CT 11/07/23 17:57 IMPRESSION: There is decreased sensitivity of the examination due to decreased penetration. 1. No acute traumatic abnormality of the chest, abdomen or pelvis. 2. Hepatic steatosis. No focal hepatic mass. 3. Cholecystectomy. 4. Gastric bypass surgery. 5. No acute aortic abnormality. No central pulmonary embolism. 6. Other findings as described. Electronically authenticated by: CAMILLA ESPINOZA Date: 11/07/2023 23:[address] 11/07/23 17:57 IMPRESSION: 1. No acute intracranial abnormality noted. 2. No displaced facial bone fractures. 3. No acute fracture or subluxation of the spine. Mild multilevel degenerative changes of the cervical, thoracic and lumbar spine. Electronically authenticated by: THERESA BRUCE Date: 11/07/2023 21:[address] 11/07/23 17:57 IMPRESSION: There is decreased sensitivity of the examination due to decreased penetration. 1. No acute traumatic abnormality of the chest, abdomen or pelvis. 2. Hepatic steatosis. No focal hepatic mass. 3. Cholecystectomy. 4. Gastric bypass surgery. 5. No acute aortic abnormality. No central pulmonary embolism. 6. Other findings as described. Electronically authenticated by: CAMILLA ESPINOZA Date: 11/07/2023 23:[address] 11/07/23 17:57 IMPRESSION: 1. No acute intracranial abnormality noted. 2. No displaced facial bone fractures. 3. No acute fracture or subluxation of the spine. Mild multilevel degenerative changes of the cervical, thoracic and lumbar spine. Electronically authenticated by: THERESA SHANAFELISA Date: 11/07/2023 21:[address] 11/07/23 17:57 IMPRESSION: 1. No acute intracranial abnormality noted. 2. No displaced facial bone fractures. 3. No acute fracture or subluxation of the spine. Mild multilevel degenerative changes of the cervical, thoracic and lumbar spine. Electronically authenticated by: THERESA SHANAFELISA Date: 11/07/2023 21:[address] 11/07/23 17:57 IMPRESSION: 1. No acute intracranial abnormality noted. 2. No displaced facial bone fractures. 3. No acute fracture or subluxation of the spine. Mild multilevel degenerative changes of the cervical, thoracic and lumbar spine. Electronically authenticated by: THERESA [place] Date: 11/07/2023 21:[address] 11/07/23 17:57 IMPRESSION: 1. No acute intracranial abnormality noted. 2. No displaced facial bone fractures. 3. No acute fracture or subluxation of the spine. Mild multilevel degenerative changes of the cervical, thoracic and lumbar spine. Electronically authenticated by: THERESA [employer] Date: 11/07/2023 21:11 ECG Data Attestation: I personally reviewed and interpreted this ECG as follows: (Normal sinus rhythm at a rate of 74, no acute ST elevation or ectopy. EKG reviewed by attending physician) Discharge Plan Discharge Stand Alone Forms: Portal Instructions Chief Complaint: Fall Clinical Impression: Fall, Closed head injury, Facial contusion, Chest wall contusion, Hypokalemia Patient Disposition: Home, Self-Care Time of Disposition Decision: 23:23 Condition: Good Prescriptions / Home Meds: No Action levothyroxine [Euthyrox] 125 mcg tablet 125 mcg PO DAILY hydrocodone-acetaminophen 5-325 mg tablet 1 tab PO Q12H spironolactone 25 mg tablet 25 mg PO TID torsemide 100 mg tablet 100 mg PO DAILY calcium carbonate [Tums] 200 mg calcium (500 mg) tablet,chewable 200 mg PO DAILY tramadol 50 mg tablet 25 mg PO Q6H PRN (Reason: pain) urea 20 % cream 1 applic topical DAILY PRN (Reason: dry skin) lidocaine HCl [Aspercreme (lidocaine HCl)] 4 % cream 1 applic topical Q8H PRN (Reason: back pain) baclofen 10 mg tablet 5 mg PO Q8H cyanocobalamin (vitamin B-12) 1,000 mcg tablet 1,000 mcg PO DAILY famotidine 40 mg tablet 40 mg PO DAILY ferrous sulfate [FeroSul] 325 mg (65 mg iron) tablet 325 mg PO DAILY acetaminophen 325 mg tablet 650 mg PO Q4H PRN (Reason: pain) albuterol sulfate 0.63 mg/3 mL solution for nebulization 0.833 mg inhalation Q4H PRN (Reason: shortness of breath or wheezing) diphenhydramine HCl [Banophen] 25 mg tablet 50 mg PO Q6H PRN (Reason: itching) guaifenesin [Chest Congestion Relief] 100 mg/5 mL liquid 400 mg PO Q4H PRN (Reason: cough) hydrocortisone 1 % cream 1 applic topical QID PRN (Reason: itching) nystatin [Nyamyc] 100,000 unit/gram powder 1 applic topical BID ondansetron HCl 4 mg tablet 4 mg PO Q4H PRN (Reason: nausea and vomiting) Rx Instructions: give 1st dose 30min before emetogenic chemo prednisone 10 mg tablets,dose pack 10 mg PO DAILY Qty: 39 0RF Rx Instructions: 6 PO daily x 3 days, then 4 PO daily x 3 days, then 2 PO daily x 3 days, then 1 PO daily x 3 days famotidine [Pepcid] 40 mg tablet 40 mg PO DAILY Qty: 30 0RF Print Language: Iranian Instructions: Hypokalemia (ED), Fall Prevention for Older Adults (ED), Head Injury (ED), Contusion in Adults (ED) Referrals: [facility] [Primary Care Provider] - 1 week Documented by User: Caitie Carlos MD 11/07/23 23:24 HPI HPI - General Adult General Chief complaint: Fall Stated complaint: FALL Time Seen by Provider: 11/07/23 17:49 Related Data Home Medications ?Medication ?Instructions ?Recorded ?Confirmed baclofen 10 mg tablet 5 mg PO Q8H 03/23/23 03/23/23 calcium carbonate (Tums) 200 mg PO DAILY 03/23/23 03/23/23 cyanocobalamin (vitamin B-12) 1,000 mcg PO DAILY 03/23/23 03/23/23 1,000 mcg tablet famotidine 40 mg tablet 40 mg PO DAILY 03/23/23 03/23/23 ferrous sulfate 325 mg (65 mg 325 mg PO DAILY 03/23/23 03/23/23 iron) tablet (FeroSul) hydrocodone 5 mg-acetaminophen 325 1 tab PO Q12H 03/23/23 03/23/23 mg tablet levothyroxine 125 mcg tablet 125 mcg PO DAILY 03/23/23 03/23/23 (Euthyrox) lidocaine HCl 4 % topical cream 1 applic topical Q8H PRN back pain 03/23/23 03/23/23 (Aspercreme (lidocaine HCl)) spironolactone 25 mg tablet 25 mg PO TID 03/23/23 03/23/23 torsemide 100 mg tablet 100 mg PO DAILY 03/23/23 03/23/23 tramadol 50 mg tablet 25 mg PO Q6H PRN pain 03/23/23 03/23/23 urea 20 % topical cream 1 applic topical DAILY PRN dry skin 03/23/23 03/23/23 acetaminophen 325 mg tablet 650 mg PO Q4H PRN pain 03/24/23 03/24/23 albuterol sulfate 0.63 mg/3 mL 0.833 mg inhalation Q4H PRN 03/24/23 03/24/23 solution for nebulization shortness of breath or wheezing diphenhydramine HCl 25 mg tablet 50 mg PO Q6H PRN itching 03/24/23 03/24/23 (Banophen) guaifenesin 100 mg/5 mL oral 400 mg PO Q4H PRN cough 03/24/23 03/24/23 liquid (Chest Congestion Relief) hydrocortisone 1 % topical cream 1 applic topical QID PRN itching 03/24/23 03/24/23 nystatin 100,000 unit/gram topical 1 applic topical BID 03/24/23 03/24/23 powder (Nyamyc) ondansetron HCl 4 mg tablet 4 mg PO Q4H PRN nausea and vomiting 03/24/23 03/24/23 Previous Rx's ?Medication ?Instructions ?Recorded prednisone 10 mg tablets in a dose 10 mg PO DAILY #39 ea 03/24/23 pack famotidine 40 mg tablet (Pepcid) 40 mg PO DAILY #30 tabs 03/25/23 Allergies Allergy/AdvReac Type Severity Reaction Status Date / Time latex Allergy Verified 03/24/23 04:10 Milk Containing Products Allergy Verified 03/24/23 04:10 (Dairy) Sulfa (Sulfonamide Allergy Verified 03/24/23 04:10 Antibiotics) tomato Allergy Verified 03/24/23 04:10 vancomycin Allergy Verified 03/24/23 04:10 Opioid HPI Opioid Management Most Recent Opioid Data: Last Pain Scale 9 11/07/23 20:20 PFSH PFSH Medical History (Updated 11/07/23 @ 23:23 by Caitie Carlos MD) Stage 3a chronic kidney disease (CKD) ?N18.31 - Chronic kidney disease, stage 3a (ICD-10) Chronic heart failure with preserved ejection fraction (HFpEF) ?I50.32 - Chronic diastolic (congestive) heart failure (ICD-10) Diabetes ?E11.9 - Type 2 diabetes mellitus without complications (ICD-10) Pulmonary hypertension ?I27.20 - Pulmonary hypertension, unspecified (ICD-10) Dependence on supplemental oxygen ?Z99.81 - Dependence on supplemental oxygen (ICD-10) COVID-19 ?U07.1 - COVID-19 (ICD-10) Chronic kidney disease, stage 3 ?N18.30 - Chronic kidney disease, stage 3 unspecified (ICD-10) Respiratory disorders in diseases classified elsewhere ?J99 - Respiratory disorders in diseases classified elsewhere (ICD-10) Hypothyroidism ?E03.9 - Hypothyroidism, unspecified (ICD-10) Dependence on respirator [ventilator] status ?Z99.11 - Dependence on respirator [ventilator] status (ICD-10) Muscle weakness (generalized) ?M62.81 - Muscle weakness (generalized) (ICD-10) Unsteadiness on feet ?R26.81 - Unsteadiness on feet (ICD-10) Essential hypertension ?I10 - Essential (primary) hypertension (ICD-10) Depression ?F32.A - Depression, unspecified (ICD-10) GERD (gastroesophageal reflux disease) ?K21.9 - Gastro-esophageal reflux disease without esophagitis (ICD-10) Dorsalgia ?M54.9 - Dorsalgia, unspecified (ICD-10) Diastolic heart failure ?I50.30 - Unspecified diastolic (congestive) heart failure (ICD-10) Alveolar hypoventilation ?R06.89 - Other abnormalities of breathing (ICD-10) Morbid obesity due to excess calories ?E66.01 - Morbid (severe) obesity due to excess calories (ICD-10) Constipation ?K59.00 - Constipation, unspecified (ICD-10) Acute kidney failure ?N17.9 - Acute kidney failure, unspecified (ICD-10) Adjustment disorder with anxiety ?F43.22 - Adjustment disorder with anxiety (ICD-10) Anemia ?D64.9 - Anemia, unspecified (ICD-10) Hypoxia ?R09.02 - Hypoxemia (ICD-10) Chronic respiratory failure ?J96.10 - Chronic respiratory failure, unspecified whether with hypoxia or hypercapnia (ICD-10) Acute respiratory failure ?J96.00 - Acute respiratory failure, unspecified whether with hypoxia or hypercapnia (ICD-10) Lymphedema ?I89.0 - Lymphedema, not elsewhere classified (ICD-10) Obstructive sleep apnea ?G47.33 - Obstructive sleep apnea (adult) (pediatric) (ICD-10) Surgical History (Updated 03/24/23 @ 03:27 by Robert Ferreira) History of cholecystectomy ?Z90.49 - Acquired absence of other specified parts of digestive tract (ICD- 10) Family History (Updated 03/24/23 @ 03:30 by Robert Ferreira) Mother Family history of CHF (congestive heart failure) Family history of cancer Family history of diabetes mellitus Half-brother Family history of diabetes mellitus Other Family history of hypertension Social History Within the past year, how often did you have a drink containing alcohol: monthly or less Within the past year, how often did you have six or more drinks on one occasion: never Smoking status: Never smoker Non-prescribed substance use: denies use Previous occupational history: disabled Known occupational exposures/hazards: No Highest level of school completed/degree received: high school graduate Are you now , , , , never or living with a partner: In a typical week, how many times do you talk on the telephone with family, friends, or neighbors: 3 or more times per week How often do you get together with friends or relatives: once per week How often do you attend anabaptist or faith services: never Do you belong to any clubs or organizations such as anabaptist groups unions, [employer] or athletic groups, or school groups: no Total score: 1 Score interpretation: A score of less than or equal to 1 indicates the most socially isolated. Little interest or pleasure in doing things: several days Feeling down, depressed, or hopeless: not at all Feel stressed/tense/nervous/anxious/difficulty sleeping: not at all Due to disability, difficulty making decisions: No Gender Identity: male Exam Constitutional Vital Signs, click to edit/add: Last Vital Signs Temp 98.6 F 11/07/23 17:57 Pulse 90 11/07/23 22:40 Resp 18 11/07/23 22:40 BP 128/70 11/07/23 20:25 Pulse Ox 96 11/07/23 20:34 O2 Del Method Room Air 11/07/23 17:57 Course Vital Signs Vital signs: Vital Signs Temperature 98.6 F 11/07/23 17:57 Pulse Rate 115 H 11/07/23 17:57 Respiratory Rate 18 11/07/23 17:57 Blood Pressure 115/68 11/07/23 17:57 Pulse Oximetry 100 11/07/23 17:57 Oxygen Delivery Method Room Air 11/07/23 17:57 Temperature 98.6 F 11/07/23 17:57 Pulse Rate 90 11/07/23 22:40 Respiratory Rate 18 11/07/23 22:40 Blood Pressure 128/70 11/07/23 20:25 Pulse Oximetry 96 11/07/23 20:34 Oxygen Delivery Method Room Air 11/07/23 17:57 Medical Decision Making MDM Narrative Medical decision making narrative: Patient treated with pain medication, he requested pain meds several times on arrival to the ER. He was given IV fluids, IV was established and labs were obtained. Radiology services requested a creatinine from the patient before his trauma CTs. He was sent for CTs of the head, facial bones, cervical spine, chest and abdomen and pelvis with contrast. He is resting comfortably after remedication after CTs. Labs show the patient has stable kidney function but his potassium is 2.3. He is on diuretics at home and does take potassium pills daily. He was given oral potassium and IV potassium while in the ER. CT results are pending at this time, case turned over to attending physician at this time ([id number]) SHARED APC VISIT, PHYSICIAN ATTESTATION: [id number] I performed a substantive part of the MDM during the patient?s E/M visit. I personally evaluated and examined the patient. I personally made or approved the documented management plan and acknowledge its risk of complications. This patient was seen and evaluated in conjunction with the physician financial administrative assistant. He presents after he had a fall at home. Routine labs were ordered. His only laboratory abnormality was a potassium of 2.3 which was replaced intravenously and orally. He states he has potassium supplementation at home. CT scan of the brain, cervical spine thoracic spine lumbar spine, chest abdomen pelvis were all ordered and are negative for acute findings. Chronic changes are noted. There is no indication for this patient to be admitted at this time. He is super morbidly obese with hypokalemia but otherwise lives alone. I inquired as to why he takes an ambulance to this emergency department when he lives 5 minutes from an emergency department in his hometown and he states he had a bad experience at [place]. We do not have any hospital beds to admit him at this time, this was discussed with him. He states that typically when he is here he gets an ambulance service to take him home. I explained to him that we no longer have a contract with that ambulance service for transport to [facility]. He states he will have to look for a ride. At this time he is hemodynamically stable for discharge. Medical Records Medical records narrative: The [address] [place] [address] CT Scan Report Signed Patient: SHERMAN THOMPSON MR#: [id number] : 1980 Acct:[id number] Age/Sex: 43 / M ADM Date: 11/07/23 Loc: ER Attending Dr: Ordering Physician: Cleo Carrillo Date of Service: 11/07/23 Procedure(s): CT abdomen pelvis w con Accession Number(s): [id number] cc: [address] [address] Patient Name: SHERMAN THOMPSON MRN: [id number] date: 1980 Sex: M Assigned Patient Location: ER Current Patient Location: ER Accession/Order Number: [id number] Exam Date: 11/07/2023 19:45 Report Date: 11/07/2023 23:10 At the request of: CLEO CARRILLO Procedure: CT abdomen pelvis w con EXAM: CT chest w con, CT abdomen pelvis w con HISTORY: Fall COMPARISON: None. TECHNIQUE: Dose reduction techniques were achieved by using automated exposure control and/or adjustment of mA and/or kV according to patient size and/or use of iterative reconstruction technique.CT of the chest, abdomen and pelvis with contrast. FINDINGS: CHEST: No supraclavicular adenopathy. No axillary adenopathy. Heart size is normal. No pericardial effusion. Mild patchy atelectasis at the posterior aspect of the right lower lobe. Lungs are otherwise clear. No large pulmonary lung nodules or masses. Thyroid gland is normal. No acute aortic abnormality. Aortic arch branch vessels are patent. No central pulmonary embolism. ABDOMEN/PELVIS: Hepatic steatosis. No focal hepatic mass. Cholecystectomy. Spleen is normal. Adrenal glands are normal. Pancreas is normal. Gastric bypass surgery. Adrenal glands are normal. Kidneys are normal. No hydronephrosis. No hydroureter. No nephroureterolithiasis. No bladder stones. No focal bladder wall thickening. No colonic dilation. No pericolonic fat stranding. Fatty infiltration of the colonic turcios, consistent with chronic inflammation. No small bowel dilation. No adjacent mesenteric edema. No inguinal, pelvic or retroperitoneal adenopathy. Moderate degeneration of the bilateral sacroiliac joints. Mild degeneration of the bilateral hip joints. Moderate degeneration at the L3-L4 and L4-L5 disc spaces. There is decreased sensitivity of the examination due to decreased penetration. CT/CT abdomen pelvis w con IMPRESSION: There is decreased sensitivity of the examination due to decreased penetration. 1. No acute traumatic abnormality of the chest, abdomen or pelvis. 2. Hepatic steatosis. No focal hepatic mass. 3. Cholecystectomy. 4. Gastric bypass surgery. 5. No acute aortic abnormality. No central pulmonary embolism. 6. Other findings as described. Lab Data Labs: Lab Results 11/07/23 11/07/23 Range/Units 18:03 18:55 WBC 6.8 (4.0-11.0) 10^3/uL RBC 3.32 L (4.70-6.10) 10^6/uL Hgb 10.5 L (14.0-18.0) g/dL Hct 31.9 L (42.0-54.0) % MCV 96.1 H (80.0-94.0) fL MCH 31.6 (25.9-34.0) pg MCHC 32.9 (29.9-35.2) g/dL RDW 14.3 (11.0-15.0) % Plt Count 150 (150-450) 10^3/uL MPV 12.9 (9.5-13.5) fL Neut % (Auto) 72.8 (43.0-75.0) % Lymph % (Auto) 15.3 L (20.5-60.0) % [place] % (Auto) 8.4 (1.7-12.0) % Eos % (Auto) 1.8 (0.9-7.0) % Baso % (Auto) 0.4 (0.2-2.0) % Neut # (Auto) 5.0 (1.4-6.5) 10^3/uL Lymph # (Auto) 1.0 L (1.2-3.8) 10^3/uL [place] # (Auto) 0.6 (0.3-0.8) 10^3/uL Eos # (Auto) 0.1 (0.0-0.7) 10^3/uL Baso # (Auto) 0.0 (0.0-0.1) 10^3/uL Abs Immat Gran (auto) 0.09 H (0.00-0.03) 10^3/uL Imm/Tot Granulo (auto) 1.3 H (0.0-0.5) % PT 11.9 H (9.0-11.6) sec INR 1.14 Sodium 141 (136-145) mmol/L Potassium 2.3 L* (3.5-5.1) mmol/L Chloride 98 (98-107) mmol/L Carbon Dioxide 39.5 H (21.0-32.0) mmol/L Anion Gap 5.8 BUN 9.0 (7.0-18.0) mg/dL Creatinine 1.63 H (0.70-1.30) mg/dL Est GFR ( Amer) 56 L (>=60) Est GFR (Non-Af Amer) 46 L (>=60) BUN/Creatinine Ratio 5.5 Glucose 104 (74-106) mg/dL Calcium 7.0 L (8.5-10.1) mg/dL Total Bilirubin 2.4 H (0.2-1.0) mg/dL AST 99 H (15-37) U/L ALT 59 (16-63) U/L Alkaline Phosphatase 156 H (46-116) U/L Total Protein 7.3 (6.4-8.2) g/dL Albumin 2.5 L (3.4-5.0) g/dL Globulin 4.8 g/dL Albumin/Globulin Ratio 0.[address] scan - head: Radiologist's impression: ITS Impressions Abdomen/Pelvis CT 11/07/23 17:57 IMPRESSION: There is decreased sensitivity of the examination due to decreased penetration. 1. No acute traumatic abnormality of the chest, abdomen or pelvis. 2. Hepatic steatosis. No focal hepatic mass. 3. Cholecystectomy. 4. Gastric bypass surgery. 5. No acute aortic abnormality. No central pulmonary embolism. 6. Other findings as described. Electronically authenticated by: CAMILAL ESPINOZA Date: 11/07/2023 23:[address] 11/07/23 17:57 IMPRESSION: 1. No acute intracranial abnormality noted. 2. No displaced facial bone fractures. 3. No acute fracture or subluxation of the spine. Mild multilevel degenerative changes of the cervical, thoracic and lumbar spine. Electronically authenticated by: THERESA BRUCE Date: 11/07/2023 21:[address] 11/07/23 17:57 IMPRESSION: There is decreased sensitivity of the examination due to decreased penetration. 1. No acute traumatic abnormality of the chest, abdomen or pelvis. 2. Hepatic steatosis. No focal hepatic mass. 3. Cholecystectomy. 4. Gastric bypass surgery. 5. No acute aortic abnormality. No central pulmonary embolism. 6. Other findings as described. Electronically authenticated by: CAMILLA ESPINOZA Date: 11/07/2023 23:[address] 11/07/23 17:57 IMPRESSION: 1. No acute intracranial abnormality noted. 2. No displaced facial bone fractures. 3. No acute fracture or subluxation of the spine. Mild multilevel degenerative changes of the cervical, thoracic and lumbar spine. Electronically authenticated by: THERESA SHANAFELISA Date: 11/07/2023 21:[address] 11/07/23 17:57 IMPRESSION: 1. No acute intracranial abnormality noted. 2. No displaced facial bone fractures. 3. No acute fracture or subluxation of the spine. Mild multilevel degenerative changes of the cervical, thoracic and lumbar spine. Electronically authenticated by: THERESARENETTA SALDANAFELISA Date: 11/07/2023 21:[address] 11/07/23 17:57 IMPRESSION: 1. No acute intracranial abnormality noted. 2. No displaced facial bone fractures. 3. No acute fracture or subluxation of the spine. Mild multilevel degenerative changes of the cervical, thoracic and lumbar spine. Electronically authenticated by: THERESARENETTA SALDANAFELISA Date: 11/07/2023 21:[address] 11/07/23 17:57 IMPRESSION: 1. No acute intracranial abnormality noted. 2. No displaced facial bone fractures. 3. No acute fracture or subluxation of the spine. Mild multilevel degenerative changes of the cervical, thoracic and lumbar spine. Electronically authenticated by: THERESARENETTA SALDANAAGUSTINGowalla Date: 11/07/2023 21:11 Discharge Plan Discharge Stand Alone Forms: Portal Instructions Chief Complaint: Fall Clinical Impression: Fall, Closed head injury, Facial contusion, Chest wall contusion, Hypokalemia Patient Disposition: Home, Self-Care Time of Disposition Decision: 23:23 Condition: Good Prescriptions / Home Meds: No Action levothyroxine [Euthyrox] 125 mcg tablet 125 mcg PO DAILY hydrocodone-acetaminophen 5-325 mg tablet 1 tab PO Q12H spironolactone 25 mg tablet 25 mg PO TID torsemide 100 mg tablet 100 mg PO DAILY calcium carbonate [Tums] 200 mg calcium (500 mg) tablet,chewable 200 mg PO DAILY tramadol 50 mg tablet 25 mg PO Q6H PRN (Reason: pain) urea 20 % cream 1 applic topical DAILY PRN (Reason: dry skin) lidocaine HCl [Aspercreme (lidocaine HCl)] 4 % cream 1 applic topical Q8H PRN (Reason: back pain) baclofen 10 mg tablet 5 mg PO Q8H cyanocobalamin (vitamin B-12) 1,000 mcg tablet 1,000 mcg PO DAILY famotidine 40 mg tablet 40 mg PO DAILY ferrous sulfate [FeroSul] 325 mg (65 mg iron) tablet 325 mg PO DAILY acetaminophen 325 mg tablet 650 mg PO Q4H PRN (Reason: pain) albuterol sulfate 0.63 mg/3 mL solution for nebulization 0.833 mg inhalation Q4H PRN (Reason: shortness of breath or wheezing) diphenhydramine HCl [Banophen] 25 mg tablet 50 mg PO Q6H PRN (Reason: itching) guaifenesin [Chest Congestion Relief] 100 mg/5 mL liquid 400 mg PO Q4H PRN (Reason: cough) hydrocortisone 1 % cream 1 applic topical QID PRN (Reason: itching) nystatin [Nyamyc] 100,000 unit/gram powder 1 applic topical BID ondansetron HCl 4 mg tablet 4 mg PO Q4H PRN (Reason: nausea and vomiting) Rx Instructions: give 1st dose 30min before emetogenic chemo prednisone 10 mg tablets,dose pack 10 mg PO DAILY Qty: 39 0RF Rx Instructions: 6 PO daily x 3 days, then 4 PO daily x 3 days, then 2 PO daily x 3 days, then 1 PO daily x 3 days famotidine [Pepcid] 40 mg tablet 40 mg PO DAILY Qty: 30 0RF Print Language: Iranian Instructions: Hypokalemia (ED), Fall Prevention for Older Adults (ED), Head Injury (ED), Contusion in Adults (ED) Referrals: [facility] [Primary Care Provider] - 1 week
--- OUTSIDE RECORDS SUMMARY | 2023-11-07 18:06 | XMS_ITS | CCD ---
Author Organization [facility] CliniSyaz Care Team Providers Care Equipment Tester Name Role Phone Unavailable Primary Care Provider Unavailrhoda e SHYLA BURNETT Attending Unavailable SHYLA BURNETT Attending Unavailable Corby PA-C, [facility] [place] Primary Care Provider Corby PA-C, [facility] [place] Primary Care Provider MICHAEL ENCISO Attending Unavailable JO HENSON Attending Unavailable RUPESH HIGHTOWER Attending Unavailable CORBY, [facility] Primary Care Unavailable JO HENSON Referring Unavailable RUPESH HIGHTOWER Attending Unavailable CORBY, [facility] Primary Care Unavailable AMINIAN, ALI Referring Unavailable CORBY, KISHOR Primary Care Unavailable FRANCOIAN, ALI Referring Unavailable SILVER HIGHTOWERE Attending Unavailable CORBY, [facility] Primary Care Unavailable CORBY, [facility] Primary Care Unavailable FRANCOIAN, ALI Referring Unavailable JOMAR LONDONO Attending Unavailable AMINIAN ALI Attending Unavailable AMINIAN, ALI Admitting Unavailable JO HENSON Referring Unavailable CORBY, KISHOR Primary Care Unavailable DEPE LOVELL Attending Unavailable MICHAEL ENCISO Referring Unavailable SILVER HIGHTOWERE Attending Unavailable CORBY, [facility] Primary Care Unavailable FRANCOIAN, ALI Referring Unavailable CLARENCE, DAYDAY Attending Unavailable JO HENSON Referring Unavailable CLARENCE, DAYDAY Referring Unavailable CORBY, KISHOR Primary Care Unavailable AMINIAN, ALI Referring Unavailable CORBY, [facility] Primary Care Unavailable AMINIAN, ALI Referring Unavailable ABA MILLER Attending Unavailable CORBY, KISHOR Primary Care Unavailable CLARENCE, DAYDAY Referring Unavailable CLARENCE, DAYDAY Attending Unavailable CORBY, [facility] Primary Care Unavailable CLARENCE, DAYDAY Referring Unavailable CORBY, [facility] Primary Care Unavailable ZARIA, ALI Referring Unavailable DEEP LOVELL Attending Unavailable CORBY, [facility] Primary Care Unavailable KAVITHA NIEVES Attending Unavailable SILVER HIGHTOWREE Attending Unavailable AVTAR, RUPESH Attending Unavailable CORBY, [facility] Primary Care Unavailable AMINIANMICHAEL Referring Unavailable Corby, Kishor Attending Unavailable Corby, [facility] [place] Primary Care Unavailable Corby, [facility] [place] Admitting Unavailable Corby, Kishor Admitting Unavailable Corby, Kishor Attending Unavailable Corby, [facility] [place] Primary Care Unavailable CORBY, KISHOR Referring Unavailable SERVICES, [facility] Unava ilable CORBY, [facility] Referring Unavailable SERVICES, [facility] Care Unava ilable CORBY, [facility] Referring Unavailable SERVICES, [facility] Unava ilable Allergies Allergy Classification Reported Allergen(s) Allergy Type Date of Onset Reaction(s) Facility cow milk allergenic extract (1 source) cow milk allergenic extract Drug Allergy [address] [facility] Glycopeptides (antibiotic) (1 source) Vancomycin Drug Allergy [address] [facility] Lactose (1 source) Lactose Drug Allergy 3 Other: See Comments [facility] Work Phone: Sulfonamides (antibiotic) (1 source) Sulfonamides (Antibiotic) Drug Allergy [address] [facility] (20 sources) Lactose; Translations: [LACTOSE] Drug Allergy 3 Other: See Comments [facility] Work Phone: (20 sources) Sulfonamides (Antibiotic); Translations: [SULFA (SULFONAMIDE ANTIBIOTICS)] Drug Allergy [address] [facility] Work Phone: (20 sources) Vancomycin; Translations: [VANCOMYCIN] Drug Allergy [address] [facility] Work Phone: (20 sources) cow milk allergenic extract; Translations: [MILK] Drug Allergy [address] [facility] Medications Current Medications Medication Drug Class(es) Dates Sig (Normalized) Sig (Original) cholecalciferol 1.25 mg oral capsule (19 sources) Vitamin D Start: 04-21-2023 take 1 capsule by mouth every week cholecalciferol, Vitamin D3, (VITAMIN D3) 1,250 mcg (50,000 unit) cap capsule Indications: vitamin D deficiency Take 1 capsule by mouth one time a week. Afterwards take 2000 units over the counter daily 8 capsule 0 04/21/2023 Active Comment on above: Take 1 capsule by [facility] one time a week. Afterwards take 2000 units over the counter daily 0.6 ml enoxaparin sodium 100 mg/ml prefilled syringe (11 sources) Low Molecular Weight Heparin Start: 05-31-2023 End: 06-28-2023 inject 0.6 mL by subcutaneous injection twice daily enoxaparin (LOVENOX) 60 mg/0.6 mL syrg Inject 0.6 mL subcutaneously two times a day for 28 days. 33.6 mL 0 05/31/2023 06/28/2023 Active Comment on above: Inject 0.6 mL subcut aneously two times a day for 28 days. levothyroxine sodium 0.125 mg oral tablet (20 sources) l-Thyroxine Start: 11-05-2022 levothyroxine (SYNTHROID) 125 mcg tablet ondansetron 4 mg oral tablet (19 sources) Serotonin-3 Receptor Antagonist Start: 05-31-2023 take 1 tablet by mouth every six hours as needed ondansetron (ZOFRAN) 4 mg tablet Take 1 tablet by mouth every 6 hours as needed for nausea/vomiting for up to 40 doses. 20 tablet 1 05/31/2023 Active Comment on above: [facility] hours as needed for nausea/vomiting for up to 40 doses. pantoprazole 40 mg delayed release oral tablet (19 sources) Proton Pump Inhibitor Start: 05-31-2023 End: 05-30-2024 take 1 tablet by mouth once daily pantoprazole DR (PROTONIX) 40 mg tablet Take 1 tablet by mouth once daily. 90 tablet 3 05/31/2023 05/30/2024 Active Comment on above: [facility] microencapsulated potassium chloride 20 meq extended release oral tablet (7 sources) Start: 07-14-2023 End: 10-12-2023 take 2 tablets by mouth once daily potassium chloride ER (KLOR-CON M20) 20 mEq tablet Take 2 tablets by mouth once daily. 180 tablet 3 07/14/2023 10/12/2023 Active Comment on above: Take 2 tablets by [facility] once daily. torsemide 100 mg oral tablet (20 sources) Loop Diuretic Start: 11-07-2022 take 1 tablet by mouth once daily torsemide (DEMADEX) 100 mg tablet Take 100 mg by mouth once daily. 0 11/07/2022 Active Comment on above: Take 100 mg by mouth once daily. Walker misc (19 sources) Start: 05-31-2023 Walker misc 1 Units as needed. 1 Each 0 05/31/2023 Active Comment on above: 1 Units as needed. Completed/Discontinued Medications Medication Drug Class(es) Dates Sig (Normalized) Sig (Original) famotidine 40 mg oral tablet (10 sources) Histamine-2 Receptor Antagonist Start: 11-25-2022 famotidine (PEPCID) 40 mg tablet oxyCODONE hydrochloride 5 mg oral tablet (12 sources) Opioid Agonist Start: 05-31-2023 End: 05-31-2024 oxyCODONE IR (ROXICODONE) 5 mg immediate release tablet Indications: Acute post-operative pain Take 1 tablet by mouth every 6 hours as needed for pain for up to 5 doses. 5 tablet 0 05/31/2023 07/13/2023 Discontinued Comment on above: Take 1 tablet by joe every 6 hours as needed for pain for up to 5 doses. spironolactone 25 mg oral tablet (20 sources) Aldosterone Antagonist Start: 10-25-2022 End: 07-13-2023 take 1 tablet by mouth once daily spironolactone (ALDACTONE) 25 mg tablet Take 25 mg by mouth once daily. 0 10/25/2022 07/13/2023 Discontinued Comment on above: Take 25 mg by mouth once daily. traMADol hydrochloride 50 mg oral tablet (10 sources) Opioid Agonist Start: 10-26-2022 traMADol (ULTRAM) 50 mg tablet Problems Active Problems Problem Classification Problem Date Documented Da te Episodic/Chronic Esophageal disorders (20 sources) Gastroesophageal reflux disease without esophagitis; Translations: [Gastro-esophageal reflux disease without esophagitis] Onset: 3 11-26-2022 Chronic Other aftercare (3 sources) Surgical follow-up; Translations: [Encounter for other specified surgical aftercare] 06-01-2023 Episodic Other connective tissue disease (1 source) Myalgia, other site; Translations: [Myalgia, other site] Onset: 4 Episodic Other diseases of veins and lymphatics (20 sources) Lymphedema; Translations: [Lymphedema, not elsewhere classified] Onset: 3 Chronic Other diseases of veins and lymphatics (2 sources) Lymphedema, not elsewhere classified; Translations: [Lymphedema] Onset: 4 Chronic Other gastrointestinal disorders (2 sources) Abnormal intestinal absorption; Translations: [Intestinal malabsorption, unspecified] 06-10-2023 Chronic Other gastrointestinal disorders (2 sources) History of bypass of stomach; Translations: [Bariatric surgery status] 06-10-2023 Episodic Other gastrointestinal disorders (1 source) History of sleeve gastrectomy; Translations: [Bariatric surgery status] 06-21-2023 Episodic Other nutritional; endocrine; and metabolic disorders (20 sources) Morbid obesity; Translations: [Morbid (severe) obesity due to excess calories] Onset: 3 Chronic Other nutritional; endocrine; and metabolic disorders (20 sources) Body mass index 40+ - severely obese; Translations: [Body mass index (BMI) 70 or greater, adult] Onset: 3 11-03-2022 Chronic Other nutritional; endocrine; and metabolic disorders (1 source) Psychosomatic factor in physical condition; Translations: [Morbid (severe) obesity due to excess calories] 01-24-2023 Chronic Other nutritional; endocrine; and metabolic disorders (19 sources) Alveolar hypoventilation; Translations: [Morbid (severe) obesity with alveolar hypoventilation] Onset: 4 05-25-2023 Chronic Other nutritional; endocrine; and metabolic disorders (1 source) Morbid (severe) obesity with alveolar hypoventilation; Translations: [Obesity hypoventilation syndrome (HCC)] Onset: 4 Chronic Other nutritional; endocrine; and metabolic disorders (1 source) Body mass index (BMI) 70 or greater, adult; Translations: [BMI 70 and over, adult (HCC)] Onset: 3 Chronic Other nutritional; endocrine; and metabolic disorders (1 source) Morbid (severe) obesity due to excess calories; Translations: [Morbid obesity (HCC)] Onset: 4 Chronic Residual codes; unclassified (20 sources) Obstructive sleep apnea syndrome; Translations: [Obstructive sleep apnea (adult) (pediatric)] Onset: 3 11-26-2022 Chronic Residual codes; unclassified (1 source) Obstructive sleep apnea (adult) (pediatric); Translations: [ISI (obstructive sleep apnea)] Onset: 4 Chronic Sprains and strains (1 source) Sprain of unspecified parts of thorax, initial encounter; Translations: [Sprain of unspecified parts of thorax, initial encounter] Onset: 4 Episodic Thyroid disorders (20 sources) Acquired hypothyroidism; Translations: [Hypothyroidism, unspecified] Onset: 3 11-26-2022 Chronic Unclassified (5 sources) 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 Onset: 4 05-03-2023 Unclassified (1 source) Low back pain, unspecified; Translations: [Low back pain, unspecified] Onset: 4 Past or Other Problems Problem Classification Problem Date Documented Date Episodic/Chronic Administrative/social admission (20 sources) Reduced mobility; Translations: [Other reduced mobility] Onset: 10-25-2022 Episodic Complications of surgical procedures or medical care (19 sources) Pulmonary insufficiency following surgery; Translations: [Other postprocedural complications and disorders of respiratory system, not elsewhere classified] Onset: 05-27-2023 05-27-2023 Episodic Fluid and electrolyte disorders (20 sources) Compensated respiratory acidosis; Translations: [Compensated respiratory acidosis] Onset: 05-26-2023 05-26-2023 Episodic Other lower respiratory disease (19 sources) Hypoxia; Translations: [Hypoxemia] Onset: 05-25-2023 05-25-2023 Episodic Other lower respiratory disease (1 source) Hypoxemia; Translations: [Hypoxia] Onset: 05-25-2023 Episodic Other nervous system disorders (19 sources) Postoperative pain ; Translations: [Other acute postprocedural pain] Onset: 05-25-2023 05-25-2023 Episodic Other nervous system disorders (1 source) Other acute postprocedural pain; Translations: [Acute post-operative pain] Onset: 05-23-2023 Episodic Other nutritional; endocrine; and metabolic disorders (5 sources) Severe obesity; Translations: [Morbid (severe) obesity due to excess calories] Onset: 05-23-2023 Resolved: 05-24-2023 05-24-2023 Chronic Other screening for suspected conditions (not mental disorders or infectious disease) (20 sources) Serum creatinine raised; Translations: [Other specified abnormal findings of blood chemistry] Onset: 04-13-2023 04-13-2023 Episodic Respiratory failure; insufficiency; arrest (adult) (20 sources) Acute hypoxemic and hypercapnic respiratory failure; Translations: [Acute respiratory failure with hypoxia] Onset: 05-25-2023 05-25-2023 Episodic Results Test Name Value Interpretation Reference Range Facility XR SPINE LUMB COMP INCL BEND 6+ VWSon 10-15-2023 XR SPINE LUMB COMP INCL BEND 6+ VWS XR SPINE LUMB COMP INCL BEND 6+ VWS HISTORY: A 43-year-old male with the history of the chronic back pain. No history of injury. TECHNIQUE: Lumbar spine including flexion and extension and oblique views, 7 views COMPARISON: No relevant prior studies are available for comparison. FINDINGS: Examination is severely compromised due to underpenetrated images from the patient's body habitus. Vertebral heights are normal. There is no evidence of compression fracture or spondylolisthesis. There are diffuse degenerative changes in the lumbar spine. Disc spaces are reduced at multiple levels. Pedicles are intact. Both sacroiliac joints are intact. There are osteoarthritic changes in the both hip joints. Lateral views in the flexion and extension positions reveal no abnormal movements. There is evidence of prior cholecystectomy. Bowel gas pattern is nonobstructive. IMPRESSION: * Examination is severely compromised due to underpenetrated images secondary to the patient's body habitus. * No evidence of compression fracture, spondylolisthesis or abnormal movements. 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 * Osteoarthritis involving both hip joints. Finalized by Adan Flores MD on 10/15/2023 8:57 PM Normal [facility] XR SPINE THORACIC 3 VWSon XR SPINE THORACIC 3 VWS XR SPINE THORACIC 3 VWS XR SPINE THORACIC 3 VWS History: Thoracic back sprain, initial encounter Impression: * No acute findings. * No fracture or destructive lesion. * Diffuse disc disease and facet arthritis. . * Consider MRI if you suspect occult process Finalized by David Perera MD on 10/13/2023 9:05 PM Normal [facility] CNPNon 09-29-2023 CNPN Normal [facility] CNPNon 08-23-2023 CNPN Normal [facility] CNPNon 08-19-2023 CNPN Normal [facility] CNCNPATEDon 08-18-2023 CNCNPATED Normal [facility] CNPNon 07-28-2023 CNPN Normal [facility] CNPNon 07-22-2023 CNPN Normal [facility] CBC panel Auto (Bld)on 07-12 Erythrocyte distribution width (RBC) [Ratio] 16.8 % High 11.5 - 15.0 % [facility] Hematocrit (Bld) [Volume fraction] 38.7 % Low 39.0 - 51.0 % [facility] Hemoglobin (Bld) [Mass/Vol] 11.9 g/dL Low 13.0 - 17.0 g/dL [facility] MCH (RBC) [Entitic mass] 28.3 pg 26.0 - 34.[address] [facility] MCHC (RBC) [Mass/Vol] 30.7 g/dL 30.5 - 36.0 g/dL [facility] MCV (RBC) [Entitic vol] 91.9 fL 80.0 - 100.[address] [facility] Nucleated RBC (Bld) [#/Vol] <0.01 k/uL [facility] Platelet mean volume (Bld) [Entitic vol] 12.0 fL 9.0 - 12.[address] [facility] Platelets (Bld) [#/Vol] 148 10*3/uL Low 150 - 400 k/uL [facility] RBC (Bld) [#/Vol] 4.21 10*6/uL 4.20 - 6.0 0 m/uL [facility] WBC (Bld) [#/Vol] 6.75 10*3/uL 3.70 - 11. 00 k/uL [facility] Erythrocyte distribution width (RBC) [Ratio] 16.8 % High 11.5-15.0 [facility] Comment on above: Order Comment: Van maier Type: BLOOD SPECIMENOrdering Facility: [facility] Address: [address] [place] [address] Performed By: #### 5 8410-2 ####[facility] LABCLIA [id number] [place] [address] [place] Hematocrit (Bld) [Volume fraction] 38.7 % Low 39.0-51.0 [facility] Comment on above: Order Comment: Speci men Type: BLOOD SPECIMENOrdering Facility: [facility] Address: [address] [place] [address] Performed By: #### 5 8410-2 ####[facility] LABCLIA [id number] [address] STATES OF [facility] Hemoglobin (Bld) [Mass/Vol] 11.9 g/dL Low 13.0-17.0 [facility] Comment on above: Order Comment: Speci men Type: BLOOD SPECIMENOrdering Facility: [facility] Address: [address] [place] [address] Performed By: #### 5 8410-2 ####[facility] LABCLIA [id number] [address] [place] MCH (RBC) [Entitic mass] 28.3 pg Normal 26.0-34.0 [facility] Comment on above: Order Comment: Speci men Type: BLOOD SPECIMENOrdering Facility: [facility] Address: [address] [place] [address] Performed By: #### 5 8410-2 ####[facility] LABCLIA [id number] [address] [place] MCHC (RBC) [Mass/Vol] 30.7 g/dL Normal 30.5-36.0 [facility] Comment on above: Order Comment: Speci men Type: BLOOD SPECIMENOrdering Facility: [facility] Address: [address] [place] [address] Performed By: #### 5 8410-2 ####[facility] LABCLIA [id number] [address] [place] MCV (RBC) [Entitic vol] 91.9 fL Normal 80.0-100.0 [facility] Comment on above: Order Comment: Speci men Type: BLOOD SPECIMENOrdering Facility: [facility] Address: [address] [place] [address] Performed By: #### 5 8410-2 ####[facility] LABCLIA [id number] [place] [address] [place] Nucleated RBC (Bld) [#/Vol] 10*3/uL Normal <0.01 [facility] Comment on above: Order Comment: Speci men Type: BLOOD SPECIMENOrdering Facility: [facility] Address: [address] [place] [address] Performed By: #### 5 8410-2 ####[facility] LABCLIA [id number] [place] [address] [place] Platelet mean volume (Bld) [Entitic vol] 12.0 fL Normal 9.0-12.7 [facility] Comment on above: Order Comment: Speci men Type: BLOOD SPECIMENOrdering Facility: [facility] Address: [address] [place] [address] Performed By: #### 5 8410-2 ####[facility] LABIA [id number] [address] [place] Platelets (Bld) [#/Vol] 148 10*3/uL Low 150-400 [facility] Comment on above: Order Comment: Speci men Type: BLOOD SPECIMENOrdering Facility: [facility] Address: [address] [place] [address] Performed By: #### 5 8410-2 ####[facility] LABCLIA [id number] [place] [address] [place] RBC (Bld) [#/Vol] 4.21 10*6/uL Normal 4.20-6.00 [facility] Comment on above: Order Comment: Speci men Type: BLOOD SPECIMENOrdering Facility: [facility] Address: [address] [place] [address] Performed By: #### 5 8410-2 ####[facility] LABCLIA [id number] [place] [address] [place] WBC (Bld) [#/Vol] 6.75 10*3/uL Normal 3.70-11.00 [facility] Comment on above: Order Comment: Speci men Type: BLOOD SPECIMENOrdering Facility: [facility] Address: [address] [place] [address] Performed By: #### 5 8410-2 ####[facility] LABCLIA [id number] [place] [address] [place] CNOVon 07-13-2023 CNOV Normal [facility] CYSTATIN Con 07-13-2023 Cystatin C [Mass/Vol] 1.86 mg/L High 0.61 - 0.95 mg/L [facility] Cystatin C eGFR 36 mL/min/1.73m Low >=60 mL/min/1.73m [facility] Cystatin C [Mass/Vol] 1.86 mg/L High 0.61-0.95 [facility] Comment on above: Order Comment: Speci men Type: BLOOD SPECIMENOrdering Facility: [facility] Address: [address] [place] [address] Performed By: #### C YSTC ####[facility] LABCLIA [id number] [place] [address] [place] CYSTATIN C EGFR 36 mL/min/1.73m??? Low >=[address] [facility] Comment on above: Order Comment: Speci men Type: BLOOD SPECIMENOrdering Facility: [facility] Address: [address] [place] [address] Result Comment: Hiral mated Glomerular Filtration Rate [...] accurately reflect actual GFR. Performed By: #### C YSTC ####[facility] LABCLIA [id number] [place] [address] [place] PROTEIN CREATININE RATIOon 0 3-20-2024 Protein/Creatinine (U) [Mass ratio] 0.08 mg/mg <0.15 mg/mg [facility] Prot/Creat Uron 07-13-2023 Protein/Creatinine (U) [Mass ratio] 0.08 mg/mg Normal <0.15 [facility] Comment on above: Order Comment: Speci men Type: URINE SPECIMENOrdering Facility: [facility] Address: [address] [place] [address] Result Comment: Adul t Proteinuria Categories:<0.15 mg/mg is considered normal to mildly increased0.15 - 0.50 mg/mg is considered moderately increased>0.50 mg/mg is considered severely increasedKDIGO. (2013). KDIGO 2012 Clinical Practice Guideline for the Evaluation and Management of Chronic Kidney Disease. Official Journal of the International Society of Nephrology, 3(1), 1-150. Performed By: #### 2 890-2 ####[facility] LABCLIA [id number] [place] [address] [place] Protein/Creatinine (U) [Mass ratio]on 07-13-2023 Creatinine (U) [Mass/Vol] 473.8 mg/dL High 20.0 - 300.0 mg/dL [facility] Protein (U) [Mass/Vol] 39 mg/dL High 0 - 20 mg/dL [facility] Creatinine (U) [Mass/Vol] 473.8 mg/dL High 20.0-300.0 [facility] Comment on above: Order Comment: Speci men Type: URINE SPECIMENOrdering Facility: [facility] Address: [address] [place] [address] Performed By: #### 2 890-2 ####[facility] LABCLIA [id number] [place] [id number] [place] Protein (U) [Mass/Vol] 39 mg/dL High 0-20 [facility] Comment on above: Order Comment: Speci men Type: URINE SPECIMENOrdering Facility: [facility] Address: [address] [place] [address] Performed By: #### 2 890-2 ####[facility] LABCLIA [id number] [place] [address] [place] Renal function 2000 panelon 07-13-2023 Albumin [Mass/Vol] 3.9 g/dL 3.9 - 4.9 g/dL [facility] Anion gap [Moles/Vol] 13 mmol/L 9 - 18 mmol/L [facility] Calcium [Mass/Vol] 8.6 mg/dL 8.5 - 10. 2 mg/dL [facility] Chloride [Moles/Vol] 95 mmol/L Low 97 - 10 5 mmol/L [facility] CO2 [Moles/Vol] 30 mmol/L 22 - 30 mmol/L [facility] Creatinine [Mass/Vol] 1.43 mg/dL High 0.73 - 1.22 mg/dL [facility] Estimated Glomerular Filtration Rate 62 mL/min/1.73m >=60 mL/min/1.73m [facility] Glucose [Mass/Vol] 108 mg/dL High 74 - 99 mg/dL [facility] Phosphate [Mass/Vol] 2.7 mg/dL 2.7 - 4 .8 mg/dL [facility] Potassium [Moles/Vol] 3.1 mmol/L Low 3.7 - 5.1 mmol/L [facility] Sodium [Moles/Vol] 138 mmol/L 136 - 144 mmol/L [facility] Urea nitrogen [Mass/Vol] 10 mg/dL 9 - 24 mg/dL [facility] Albumin [Mass/Vol] 3.9 g/dL Normal 3.9-4.9 [facility] Comment on above: Order Comment: Speci men Type: BLOOD SPECIMENOrdering Facility: [facility] Address: [address] [place] [address] Performed By: #### 2 4362-6 ####[facility] [id number] [place] [address] [place] Anion gap [Moles/Vol] 13 mmol/L Normal 9-18 [facility] Comment on above: Order Comment: Speci men Type: BLOOD SPECIMENOrdering Facility: [facility] Address: [address] [place] [address] Performed By: #### 2 4362-6 ####[facility] [id number] [facility] [address] [address] [place] Calcium [Mass/Vol] 8.6 mg/dL Normal 8.5-10.2 [facility] Comment on above: Order Comment: Speci men Type: BLOOD SPECIMENOrdering Facility: [facility] Address: [address] [place] [address] Performed By: #### 2 4362-6 ####[facility] [id number] [facility] [address] [place] Chloride [Moles/Vol] 95 mmol/L Low 97-105 [facility] Comment on above: Order Comment: Speci men Type: BLOOD SPECIMENOrdering Facility: [facility] Address: [address] [place] [address] Performed By: #### 2 4362-6 ####[facility] [id number] [place] [address] [place] CO2 [Moles/Vol] 30 mmol/L Normal 22-30 [facility] Comment on above: Order Comment: Speci men Type: BLOOD SPECIMENOrdering Facility: [facility] Address: [address] [place] [address] Performed By: #### 2 4362-6 ####[facility] [id number] [place] [address] [place] Creatinine [Mass/Vol] 1.43 mg/dL High 0.73-1.22 [facility] Comment on above: Order Comment: Speci men Type: BLOOD SPECIMENOrdering Facility: [facility] Address: [address] [place] [address] Performed By: #### 2 4362-6 ####[facility] [id number] [place] [address] [place] Creatinine and Glomerular filtration rate.predicted panel (S/P/Bld) 62 mL/min/1.73m??? Normal >=60 [facility] Comment on above: Order Comment: Van maier Type: BLOOD SPECIMENOrdering Facility: [facility] Address: [address] [place] [address] Result Comment: Hiral mated Glomerular Filtration Rate [...] reflect actual GFR. Performed By: #### 2 4362-6 ####[facility] [id number] [place] [address] [place] Glucose [Mass/Vol] 108 mg/dL High 74-99 [facility] Comment on above: Order Comment: Van maier Type: BLOOD SPECIMENOrdering Facility: [facility] Address: [address] [place] [address] Result Comment: The [place] [employer] (ADA) provides guidance for cutoff values for fasting glucose and random glucose. The ADA defines fasting as no caloric intake for at least 8 hours. Fasting plasma glucose results between 100 to 125 mg/dL indicate increased risk for diabetes (prediabetes).Fasting plasma glucose results greater than or equal to 126 mg/dL meet the criteria for diagnosis of diabetes. In the absence of unequivocal hyperglycemia, results should be confirmed by repeat testing. In a patient with classic symptoms of hyperglycemia or hyperglycemic crisis, random plasma glucose results greater than or equal to 200 mg/dL meet the criteria for diagnosis of diabetes.Reference: Standards of Medical Care in Diabetes 2016, [place] [employer]. Diabetes Care. 2016.39(Suppl 1). Performed By: #### 2 4362-6 ####[facility] [id number] [place] [address] [place] Phosphate [Mass/Vol] 2.7 mg/dL Normal 2.7-4.8 [facility] Comment on above: Order Comment: Van maier Type: BLOOD SPECIMENOrdering Facility: [facility] Address: [address] [place] [id number] Performed By: #### 2 4362-6 ####[facility] [id number] [place] [address] [place] Potassium [Moles/Vol] 3.1 mmol/L Low 3.7-5.1 [facility] Comment on above: Order Comment: Speci men Type: BLOOD SPECIMENOrdering Facility: [facility] Address: [address] [place], [place] [address] Performed By: #### 2 4362-6 ####[facility] [id number] [place] [address] [place] Sodium [Moles/Vol] 138 mmol/L Normal 136-144 [facility] Comment on above: Order Comment: Speci men Type: BLOOD SPECIMENOrdering Facility: [facility] Address: [address] [place], [place] [address] Performed By: #### 2 4362-6 ####[facility] [id number] [place] [address] [place] Urea nitrogen [Mass/Vol] 10 mg/dL Normal 9-24 [facility] Comment on above: Order Comment: Speci men Type: BLOOD SPECIMENOrdering Facility: [facility] Address: [address] [place], [place] [address] Performed By: #### 2 4362-6 ####[facility] [id number] [place] [id number] [place] CNPNon 06-28-2023 CNPN Normal [facility] CNPNon 06-21-2023 CNPN Normal [facility] CNPNon 06-14-2023 CNPN Normal [facility] CNPNon 06-07-2023 CNPN Normal [facility] CNPNon 06-01-2023 CNPN Normal [facility] CNPNon 05-31-2023 CNPN Normal [facility] Basic metabolic 2000 panelon 05-30-2023 Anion gap [Moles/Vol] 11 mmol/L Normal 9-18 [facility] Comment on above: Order Comment: Speci men Type: BLOOD SPECIMENOrdering Facility: [facility] Address: [address] [place] [address] Performed By: #### 1 9123-9, 33688-1 ####[facility] [id number] [place] [address] [place] Calcium [Mass/Vol] 9.1 mg/dL Normal 8.5-10.2 [facility] Comment on above: Order Comment: Speci men Type: BLOOD SPECIMENOrdering Facility: [facility] Address: [address] [place] [address] Performed By: #### 1 9123-9, 71763-9 ####[facility] [id number] [place] [address] [place] Chloride [Moles/Vol] 91 mmol/L Low 97-105 [facility] Comment on above: Order Comment: Speci men Type: BLOOD SPECIMENOrdering Facility: [facility] Address: [address] [place] [address] Performed By: #### 1 9123-9, ####[facility] [id number] [place] [address] [place] CO2 [Moles/Vol] 36 mmol/L High 22-30 [facility] Comment on above: Order Comment: Speci men Type: BLOOD SPECIMENOrdering Facility: [facility] Address: [address] [place] [address] Performed By: #### 1 9123-9, 60460-6 ####[facility] [id number] [place] [id number] [place] Creatinine [Mass/Vol] 1.37 mg/dL High 0.73-1.22 [facility] Comment on above: Order Comment: Speci men Type: BLOOD SPECIMENOrdering Facility: [facility] Address: [address] [place] [address] Performed By: #### 1 9123-9, 62966-7 ####[facility] [id number] [place] [address] [place] Creatinine and Glomerular filtration rate.predicted panel (S/P/Bld) 65 mL/min/1.73m??? Normal >=60 [facility] Comment on above: Order Comment: Van maier Type: BLOOD SPECIMENOrdering Facility: [facility] Address: [address] [place] [address] Result Comment: Hiral mated Glomerular Filtration Rate [...] actual GFR. Performed By: #### 1 9123-9, 82420-3 ####[facility] [id number] [place] [id number] [place] Glucose [Mass/Vol] 77 mg/dL Normal 74-99 [facility] Comment on above: Order Comment: Van maier Type: BLOOD SPECIMENOrdering Facility: [facility] Address: [address] [place] [address] Result Comment: The [place] Diabetes [employer] (ADA) provides guidance for cutoff values for fasting glucose and random glucose. The ADA defines fasting as no caloric intake for at least 8 hours. Fasting plasma glucose results between 100 to 125 mg/dL indicate increased risk for diabetes (prediabetes).Fasting plasma glucose results greater than or equal to 126 mg/dL meet the criteria for diagnosis of diabetes. In the absence of unequivocal hyperglycemia, results should be confirmed by repeat testing. In a patient with classic symptoms of hyperglycemia or hyperglycemic crisis, random plasma glucose results greater than or equal to 200 mg/dL meet the criteria for diagnosis of diabetes.Reference: Standards of Medical Care in Diabetes 2016, [place] [employer]. Diabetes Care. 2016.39(Suppl 1). Performed By: #### 1 9123-9, 41557-9 ####[facility] [id number] [place] [id number] [place] Potassium [Moles/Vol] 3.7 mmol/L Normal 3.7-5.1 [facility] Comment on above: Order Comment: Speci men Type: BLOOD SPECIMENOrdering Facility: [facility] Address: [address] [place] [address] Performed By: #### 1 9123-9, 63654-4 ####[facility] [id number] [place] [address] [place] Sodium [Moles/Vol] 138 mmol/L Normal 136-144 [facility] Comment on above: Order Comment: Speci men Type: BLOOD SPECIMENOrdering Facility: [facility] Address: [address] [place] [address] Performed By: #### 1 9123-9, 20454-5 ####[facility] [id number] [place] [id number] [place] Urea nitrogen [Mass/Vol] 17 mg/dL Normal 9-24 [facility] Comment on above: Order Comment: Speci men Type: BLOOD SPECIMENOrdering Facility: [facility] Address: [address] [place] [address] Performed By: #### 1 9123-9, 40858-1 ####[facility] [id number] [place] [id number] [place] CASE MANAGEMon 05-30-2023 CASE MANAGEM Normal [facility] CBC panel Auto (Bld)on 05-30 Erythrocyte distribution width (RBC) [Ratio] 15.0 % Normal 11.5-15.0 [facility] Comment on above: Order Comment: Speci men Type: BLOOD SPECIMENOrdering Facility: [facility] Address: [address] [place] [address] Performed By: #### 5 8410-2 ####[facility] [id number] [place] [address] [place] Hematocrit (Bld) [Volume fraction] 38.2 % Low 39.0-51.0 [facility] Comment on above: Order Comment: Speci men Type: BLOOD SPECIMENOrdering Facility: [facility] Address: [address] [place] [address] Performed By: #### 5 8410-2 ####[facility] [id number] [place] [address] [place] Hemoglobin (Bld) [Mass/Vol] 11.4 g/dL Low 13.0-17.0 [facility] Comment on above: Order Comment: Speci men Type: BLOOD SPECIMENOrdering Facility: [facility] Address: [address] [place] [address] Performed By: #### 5 8410-2 ####[facility] [id number] [place] [address] [place] MCH (RBC) [Entitic mass] 27.6 pg Normal 26.0-34.0 [facility] Comment on above: Order Comment: Speci men Type: BLOOD SPECIMENOrdering Facility: [facility] Address: [address] [place] [address] Performed By: #### 5 8410-2 ####[facility] [id number] [place] [address] [place] MCHC (RBC) [Mass/Vol] 29.8 g/dL Low 30.5-36.0 [facility] Comment on above: Order Comment: Speci men Type: BLOOD SPECIMENOrdering Facility: [facility] Address: [address] [place] [address] Performed By: #### 5 8410-2 ####[facility] [id number] [place] [address] [place] MCV (RBC) [Entitic vol] 92.5 fL Normal 80.0-100.0 [facility] Comment on above: Order Comment: Speci men Type: BLOOD SPECIMENOrdering Facility: [facility] Address: [address] [place] [address] Performed By: #### 5 8410-2 ####[facility] [id number] [place] [address] [place] Nucleated RBC (Bld) [#/Vol] 10*3/uL Normal <0.01 [facility] Comment on above: Order Comment: Speci men Type: BLOOD SPECIMENOrdering Facility: [facility] Address: [address] [place] [address] Performed By: #### 5 8410-2 ####[facility] [id number] [place] [address] [place] Platelet mean volume (Bld) [Entitic vol] 11.5 fL Normal 9.0-12.7 [facility] Comment on above: Order Comment: Speci men Type: BLOOD SPECIMENOrdering Facility: [facility] Address: [address] [place] [address] Performed By: #### 5 8410-2 ####[facility] [id number] [place] [address] [place] Platelets (Bld) [#/Vol] 193 10*3/uL Normal 150-400 [facility] Comment on above: Order Comment: Speci men Type: BLOOD SPECIMENOrdering Facility: [facility] Address: [address] [place] [address] Performed By: #### 5 8410-2 ####[facility] [id number] [place] [address] [place] RBC (Bld) [#/Vol] 4.13 10*6/uL Low 4.20-6.00 [facility] Comment on above: Order Comment: Speci men Type: BLOOD SPECIMENOrdering Facility: [facility] Address: [address] [place] [address] Performed By: #### 5 8410-2 ####[facility] [id number] [place] [address] [place] WBC (Bld) [#/Vol] 4.88 10*3/uL Normal 3.70-11.00 [facility] Comment on above: Order Comment: Speci men Type: BLOOD SPECIMENOrdering Facility: [facility] Address: [address] [place] [address] Performed By: #### 5 8410-2 ####[facility] [id number] [place] [address] [place] CNCOon 05-30-2023 CNCO Letter Text Normal [facility] CNDSon 05-30-2023 CNDS Normal [facility] Magnesium SerPl-mCncon 05-30 Magnesium [Mass/Vol] 2.0 mg/dL Normal 1.7-2.3 [facility] Comment on above: Order Comment: Speci men Type: BLOOD SPECIMENOrdering Facility: [facility] Address: [address] [place] [address] Performed By: #### 1 9123-9, 98937-8 ####[facility] [id number] [place] [address] [place] NUTRITIONon 05-30-2023 NUTRITION Normal [facility] THERAPY NTon 05-30-2023 THERAPY NT Normal [facility] Basic metabolic 2000 panelon 05-29-2023 Anion gap [Moles/Vol] 12 mmol/L Normal 9-18 [facility] Comment on above: Order Comment: Speci men Type: BLOOD SPECIMENOrdering Facility: [facility] Address: [address] [place] [address] Performed By: #### 1 9123-9, 56994-9 ####[facility] [id number] [facility] [place] [address] [place] Calcium [Mass/Vol] 9.2 mg/dL Normal 8.5-10.2 [facility] Comment on above: Order Comment: Speci men Type: BLOOD SPECIMENOrdering Facility: [facility] Address: [address] [place] [address] Performed By: #### 1 9123-9, 76895-7 ####[facility] [id number] [facility] [place] [address] [place] Chloride [Moles/Vol] 90 mmol/L Low 97-105 [facility] Comment on above: Order Comment: Speci men Type: BLOOD SPECIMENOrdering Facility: [facility] Address: [address] [place] [address] Performed By: #### 1 91239, 03579-7 ####[facility] [id number] [place] [address] [place] CO2 [Moles/Vol] 36 mmol/L High 22-30 [facility] Comment on above: Order Comment: Speci men Type: BLOOD SPECIMENOrdering Facility: [facility] Address: [address] [place] [address] Performed By: #### 1 9123-9, 32054-3 ####[facility] [id number] [place] [address] [place] Creatinine [Mass/Vol] 1.39 mg/dL High 0.73-1.22 [facility] Comment on above: Order Comment: Speci men Type: BLOOD SPECIMENOrdering Facility: [facility] Address: [address] [place] [address] Performed By: #### 1 9123-9, 88236-9 ####[facility] [id number] [place] [address] [place] Creatinine and Glomerular filtration rate.predicted panel (S/P/Bld) 64 mL/min/1.73m??? Normal >=60 [facility] Comment on above: Order Comment: Van maier Type: BLOOD SPECIMENOrdering Facility: [facility] Address: [address] [place] [address] Result Comment: Hiral mated Glomerular Filtration Rate [...] actual GFR. Performed By: #### 1 9123-9, 22385-1 ####[facility] [id number] [place] [address] [place] Glucose [Mass/Vol] 93 mg/dL Normal 74-99 [facility] Comment on above: Order Comment: Van maier Type: BLOOD SPECIMENOrdering Facility: [facility] Address: [address] [place] [address] Result Comment: The [place] [employer] (ADA) provides guidance for cutoff values for fasting glucose and random glucose. The ADA defines fasting as no caloric intake for at least 8 hours. Fasting plasma glucose results between 100 to 125 mg/dL indicate increased risk for diabetes (prediabetes).Fasting plasma glucose results greater than or equal to 126 mg/dL meet the criteria for diagnosis of diabetes. In the absence of unequivocal hyperglycemia, results should be confirmed by repeat testing. In a patient with classic symptoms of hyperglycemia or hyperglycemic crisis, random plasma glucose results greater than or equal to 200 mg/dL meet the criteria for diagnosis of diabetes.Reference: Standards of Medical Care in Diabetes 2016, [place] [employer]. Diabetes Care. 2016.39(Suppl 1). Performed By: #### 1 9123-9, 54654-7 ####[facility] [id number] [place] [address] [place] Potassium [Moles/Vol] 3.5 mmol/L Low 3.7-5.1 [facility] Comment on above: Order Comment: Speci men Type: BLOOD SPECIMENOrdering Facility: [facility] Address: [address] [place] [address] Performed By: #### 1 9123-9, 76785-4 ####[facility] [id number] [address] [address] [place] Sodium [Moles/Vol] 138 mmol/L Normal 136-144 [facility] Comment on above: Order Comment: Speci men Type: BLOOD SPECIMENOrdering Facility: [facility] Address: [address] [place] [address] Performed By: #### 1 9123-9, 06672-8 ####[facility] [id number] [place] [address] [place] Urea nitrogen [Mass/Vol] 13 mg/dL Normal 9-24 [facility] Comment on above: Order Comment: Speci men Type: BLOOD SPECIMENOrdering Facility: [facility] Address: [address] [place] [address] Performed By: #### 1 9123-9, 98671-3 ####[facility] [id number] [place] [address] [place] CBC panel Auto (Bld)on 05-29 Erythrocyte distribution width (RBC) [Ratio] 14.8 % Normal 11.5-15.0 [facility] Comment on above: Order Comment: Speci men Type: BLOOD SPECIMENOrdering Facility: [facility] Address: [address] [place] [address] Performed By: #### 5 8410-2 ####[facility] [id number] [place] [address] [place] Hematocrit (Bld) [Volume fraction] 37.2 % Low 39.0-51.0 [facility] Comment on above: Order Comment: Speci men Type: BLOOD SPECIMENOrdering Facility: [facility] Address: [address] [place] [address] Performed By: #### 5 8410-2 ####[facility] [id number] [place] [address] [place] Hemoglobin (Bld) [Mass/Vol] 10.9 g/dL Low 13.0-17.0 [facility] Comment on above: Order Comment: Speci men Type: BLOOD SPECIMENOrdering Facility: [facility] Address: [address] [place] [address] Performed By: #### 5 8410-2 ####[facility] [id number] [place] [address] [place] MCH (RBC) [Entitic mass] 27.5 pg Normal 26.0-34.0 [facility] Comment on above: Order Comment: Speci men Type: BLOOD SPECIMENOrdering Facility: [facility] Address: [address] [place] [address] Performed By: #### 5 8410-2 ####[facility] [id number] [place] [address] [place] MCHC (RBC) [Mass/Vol] 29.3 g/dL Low 30.5-36.0 [facility] Comment on above: Order Comment: Speci men Type: BLOOD SPECIMENOrdering Facility: [facility] Address: [address] [place] [address] Performed By: #### 5 8410-2 ####[facility] [id number] [place] [address] [place] MCV (RBC) [Entitic vol] 93.7 fL Normal 80.0-100.0 [facility] Comment on above: Order Comment: Speci men Type: BLOOD SPECIMENOrdering Facility: [facility] Address: [address] [place] [address] Performed By: #### 5 8410-2 ####[facility] [id number] [place] [address] [place] Nucleated RBC (Bld) [#/Vol] 10*3/uL Normal <0.01 [facility] Comment on above: Order Comment: Speci men Type: BLOOD SPECIMENOrdering Facility: [facility] Address: [address] [place] [address] Performed By: #### 5 8410-2 ####[facility] [id number] [place] [address] [place] Platelet mean volume (Bld) [Entitic vol] 10.4 fL Normal 9.0-12.7 [facility] Comment on above: Order Comment: Speci men Type: BLOOD SPECIMENOrdering Facility: [facility] Address: [address] [place] [address] Performed By: #### 5 8410-2 ####[facility] [id number] [place] [address] [place] Platelets (Bld) [#/Vol] 186 10*3/uL Normal 150-400 [facility] Comment on above: Order Comment: Speci men Type: BLOOD SPECIMENOrdering Facility: [facility] Address: [address] [place] [address] Performed By: #### 5 8410-2 ####[facility] [id number] [place] [address] [place] RBC (Bld) [#/Vol] 3.97 10*6/uL Low 4.20-6.00 [facility] Comment on above: Order Comment: Speci men Type: BLOOD SPECIMENOrdering Facility: [facility] Address: [address] [place] [address] Performed By: #### 5 8410-2 ####[facility] [id number] [place] [address] [place] WBC (Bld) [#/Vol] 5.87 10*3/uL Normal 3.70-11.00 [facility] Comment on above: Order Comment: Speci men Type: BLOOD SPECIMENOrdering Facility: [facility] Address: [address] [place] [address] Performed By: #### 5 8410-2 ####[facility] [id number] [address] [address] [place] Magnesium SerPl-mCncon 05-29 Magnesium [Mass/Vol] 2.1 mg/dL Normal 1.7-2.3 [facility] Comment on above: Order Comment: Speci men Type: BLOOD SPECIMENOrdering Facility: [facility] Address: [address] [place] [address] Performed By: #### 1 9123-9, 04411-7 ####[facility] [id number] [place] [address] [place] Basic metabolic 2000 panelon 05-28-2023 Anion gap [Moles/Vol] 12 mmol/L Normal 9-18 [facility] Comment on above: Order Comment: Speci men Type: BLOOD SPECIMENOrdering Facility: [facility] Address: [address] [place] [address] Performed By: #### 2 4321-2, 55794-4 ####[facility] [id number] [place] [address] [place] Calcium [Mass/Vol] 9.4 mg/dL Normal 8.5-10.2 [facility] Comment on above: Order Comment: Speci men Type: BLOOD SPECIMENOrdering Facility: [facility] Address: [address] [place] [address] Performed By: #### 2 4321-2, 39388-8 ####[facility] [id number] [place] [id number] [place] Chloride [Moles/Vol] 91 mmol/L Low 97-105 [facility] Comment on above: Order Comment: Speci men Type: BLOOD SPECIMENOrdering Facility: [facility] Address: [address] [place] [address] Performed By: #### 2 4321-2, ####[facility] [id number] [place] [address] [place] CO2 [Moles/Vol] 36 mmol/L High 22-30 [facility] Comment on above: Order Comment: Speci men Type: BLOOD SPECIMENOrdering Facility: [facility] Address: [address] [place] [address] Performed By: #### 2 432-2, ####[facility] [id number] [place] [address] [place] Creatinine [Mass/Vol] 1.40 mg/dL High 0.73-1.22 [facility] Comment on above: Order Comment: Speci men Type: BLOOD SPECIMENOrdering Facility: [facility] Address: [address] [place] [address] Performed By: #### 2 432-2, ####[facility] [id number] [place] [address] [place] Creatinine and Glomerular filtration rate.predicted panel (S/P/Bld) 63 mL/min/1.73m??? Normal >=60 [facility] Comment on above: Order Comment: Speci men Type: BLOOD SPECIMENOrdering Facility: [facility] Address: [address] [place] [address] Result Comment: Hiral mated Glomerular Filtration Rate [...] reflect actual GFR. Performed By: #### 2 4321-2, ####[facility] [id number] [place] [id number] [place] Glucose [Mass/Vol] 93 mg/dL Normal 74-99 [facility] Comment on above: Order Comment: Speci men Type: BLOOD SPECIMENOrdering Facility: [facility] Address: [address] [place] [address] Result Comment: The [place] Diabetes [employer] (ADA) provides guidance for cutoff values for fasting glucose and random glucose. The ADA defines fasting as no caloric intake for at least 8 hours. Fasting plasma glucose results between 100 to 125 mg/dL indicate increased risk for diabetes (prediabetes).Fasting plasma glucose results greater than or equal to 126 mg/dL meet the criteria for diagnosis of diabetes. In the absence of unequivocal hyperglycemia, results should be confirmed by repeat testing. In a patient with classic symptoms of hyperglycemia or hyperglycemic crisis, random plasma glucose results greater than or equal to 200 mg/dL meet the criteria for diagnosis of diabetes.Reference: Standards of Medical Care in Diabetes 2016, [place] [employer]. Diabetes Care. 2016.39(Suppl 1). Performed By: #### 2 4320-05, ####[facility] [id number] [place] [address] [place] Potassium [Moles/Vol] 3.5 mmol/L Low 3.7-5.1 [facility] Comment on above: Order Comment: Speci men Type: BLOOD SPECIMENOrdering Facility: [facility] Address: [address] [place] [address] Performed By: #### 2 4320-05, ####[facility] [id number] [place] [address] [place] Sodium [Moles/Vol] 139 mmol/L Normal 136-144 [facility] Comment on above: Order Comment: Speci men Type: BLOOD SPECIMENOrdering Facility: [facility] Address: [address] [place] [address] Performed By: #### 2 4320-05, ####[facility] [id number] [place] [address] [place] Urea nitrogen [Mass/Vol] 12 mg/dL Normal 9-24 [facility] Comment on above: Order Comment: Speci men Type: BLOOD SPECIMENOrdering Facility: [facility] Address: [address] [place] [address] Performed By: #### 2 4321-2, 86558-9 ####[facility] [id number] [place] [address] [place] CASE MANAGEMon 05-28-2023 CASE MANAGEM Normal [facility] CBC panel Auto (Bld)on 05-28 Erythrocyte distribution width (RBC) [Ratio] 15.2 % High 11.5-15.0 [facility] Comment on above: Order Comment: Speci men Type: BLOOD SPECIMENOrdering Facility: [facility] Address: [address] [place] [address] Performed By: #### 5 8410-2 ####[facility] [id number] [place] [address] [place] Hematocrit (Bld) [Volume fraction] 42.1 % Normal 39.0-51.0 [facility] Comment on above: Order Comment: Speci men Type: BLOOD SPECIMENOrdering Facility: [facility] Address: [address] [place] [address] Performed By: #### 5 8410-2 ####[facility] [id number] [place] [address] [place] Hemoglobin (Bld) [Mass/Vol] 12.5 g/dL Low 13.0-17.0 [facility] Comment on above: Order Comment: Speci men Type: BLOOD SPECIMENOrdering Facility: [facility] Address: [address] [place] [address] Performed By: #### 5 8410-2 ####[facility] [id number] [place] [address] [place] MCH (RBC) [Entitic mass] 27.9 pg Normal 26.0-34.0 [facility] Comment on above: Order Comment: Speci men Type: BLOOD SPECIMENOrdering Facility: [facility] Address: [address] [place] [address] Performed By: #### 5 8410-2 ####[facility] [id number] [place] [address] [place] MCHC (RBC) [Mass/Vol] 29.7 g/dL Low 30.5-36.0 [facility] Comment on above: Order Comment: Speci men Type: BLOOD SPECIMENOrdering Facility: [facility] Address: [address] [place] [address] Performed By: #### 5 8410-2 ####[facility] [id number] [place] [address] [place] MCV (RBC) [Entitic vol] 94.0 fL Normal 80.0-100.0 [facility] Comment on above: Order Comment: Speci men Type: BLOOD SPECIMENOrdering Facility: [facility] Address: [address] [place] [address] Performed By: #### 5 8410-2 ####[facility] [id number] [place] [address] [place] Nucleated RBC (Bld) [#/Vol] 10*3/uL Normal <0.01 [facility] Comment on above: Order Comment: Speci men Type: BLOOD SPECIMENOrdering Facility: [facility] Address: [address] [place] [address] Performed By: #### 5 8410-2 ####[facility] [id number] [place] [address] [place] Platelet mean volume (Bld) [Entitic vol] 11.2 fL Normal 9.0-12.7 [facility] Comment on above: Order Comment: Speci men Type: BLOOD SPECIMENOrdering Facility: [facility] Address: [address] [place] [address] Performed By: #### 5 8410-2 ####[facility] [id number] [place] [address] [place] Platelets (Bld) [#/Vol] 204 10*3/uL Normal 150-400 [facility] Comment on above: Order Comment: Speci men Type: BLOOD SPECIMENOrdering Facility: [facility] Address: [address] [place] [address] Performed By: #### 5 8410-2 ####[facility] [id number] [place] [address] [place] RBC (Bld) [#/Vol] 4.48 10*6/uL Normal 4.20-6.00 [facility] Comment on above: Order Comment: Speci men Type: BLOOD SPECIMENOrdering Facility: [facility] Address: [address] [place] [address] Performed By: #### 5 8410-2 ####[facility] [id number] [place] [address] [place] WBC (Bld) [#/Vol] 7.12 10*3/uL Normal 3.70-11.00 [facility] Comment on above: Order Comment: Speci men Type: BLOOD SPECIMENOrdering Facility: [facility] Address: [address] [place] [address] Performed By: #### 5 8410-2 ####[facility] [id number] [place] [address] [place] Magnesium SerPl-mCncon 05-28 Magnesium [Mass/Vol] 2.2 mg/dL Normal 1.7-2.3 [facility] Comment on above: Order Comment: Speci men Type: BLOOD SPECIMENOrdering Facility: [facility] Address: [address] [place] [address] Performed By: #### 2 4321-2, 67734-0 ####[facility] [id number] [place] [address] [place] CASE MANAGEMon 05-27-2023 CASE MANAGEM Normal [facility] CBC panel Auto (Bld)on 05-27 Erythrocyte distribution width (RBC) [Ratio] 15.5 % High 11.5-15.0 [facility] Comment on above: Order Comment: Speci men Type: BLOOD SPECIMENOrdering Facility: [facility] Address: [address] [place] [address] Performed By: #### 5 8410-2 ####[facility] [id number] [place] [address] [place] Hematocrit (Bld) [Volume fraction] 34.9 % Low 39.0-51.0 [facility] Comment on above: Order Comment: Speci men Type: BLOOD SPECIMENOrdering Facility: [facility] Address: [address] [place] [address] Performed By: #### 5 8410-2 ####[facility] [id number] [place] [address] [place] Hemoglobin (Bld) [Mass/Vol] 10.2 g/dL Low 13.0-17.0 [facility] Comment on above: Order Comment: Speci men Type: BLOOD SPECIMENOrdering Facility: [facility] Address: [address] [place] [address] Performed By: #### 5 8410-2 ####[facility] [id number] [place] [address] [place] MCH (RBC) [Entitic mass] 27.7 pg Normal 26.0-34.0 [facility] Comment on above: Order Comment: Speci men Type: BLOOD SPECIMENOrdering Facility: [facility] Address: [address] [place] [address] Performed By: #### 5 8410-2 ####[facility] [id number] [place] [address] [place] MCHC (RBC) [Mass/Vol] 29.2 g/dL Low 30.5-36.0 [facility] Comment on above: Order Comment: Speci men Type: BLOOD SPECIMENOrdering Facility: [facility] Address: [address] [place] [address] Performed By: #### 5 8410-2 ####[facility] [id number] [place] [address] [place] MCV (RBC) [Entitic vol] 94.8 fL Normal 80.0-100.0 [facility] Comment on above: Order Comment: Speci men Type: BLOOD SPECIMENOrdering Facility: [facility] Address: [address] [place] [address] Performed By: #### 5 8410-2 ####[facility] [id number] [place] [address] [place] Nucleated RBC (Bld) [#/Vol] 10*3/uL Normal <0.01 [facility] Comment on above: Order Comment: Speci men Type: BLOOD SPECIMENOrdering Facility: [facility] Address: [address] [place] [address] Performed By: #### 5 8410-2 ####[facility] [id number] [place] [address] [place] Platelet mean volume (Bld) [Entitic vol] 10.9 fL Normal 9.0-12.7 [facility] Comment on above: Order Comment: Speci men Type: BLOOD SPECIMENOrdering Facility: [facility] Address: [address] [place] [address] Performed By: #### 5 8410-2 ####[facility] [id number] [place] [address] [place] Platelets (Bld) [#/Vol] 183 10*3/uL Normal 150-400 [facility] Comment on above: Order Comment: Speci men Type: BLOOD SPECIMENOrdering Facility: [facility] Address: [address] [place] [address] Performed By: #### 5 8410-2 ####[facility] [id number] [place] [address] [place] RBC (Bld) [#/Vol] 3.68 10*6/uL Low 4.20-6.00 [facility] Comment on above: Order Comment: Speci men Type: BLOOD SPECIMENOrdering Facility: [facility] Address: [address] [place] [address] Performed By: #### 5 8410-2 ####[facility] [id number] [place] [address] [place] WBC (Bld) [#/Vol] 7.11 10*3/uL Normal 3.70-11.00 [facility] Comment on above: Order Comment: Speci men Type: BLOOD SPECIMENOrdering Facility: [facility] Address: [address] [place] [address] Performed By: #### 5 8410-2 ####[facility] [id number] [place] [address] [place] Comprehensive metabolic 2000 panelon 05-27-2023 Albumin [Mass/Vol] 3.8 g/dL Low 3.9-4.9 [facility] Comment on above: Order Comment: Speci men Type: BLOOD SPECIMENOrdering Facility: [facility] Address: [address] [place] [address] Performed By: #### 2 4323-8, 26834-4, 2777-1 ####[facility] [id number] [place] [address] [place] ALP [Catalytic activity/Vol] 38 U/L Normal 38-113 [facility] Comment on above: Order Comment: Speci men Type: BLOOD SPECIMENOrdering Facility: [facility] Address: [address] [place] [id number] Performed By: #### 2 4323-8, , 2776-04 ####[facility] [id number] [place] [id number] [place] ALT [Catalytic activity/Vol] 14 U/L Normal 10-54 [facility] Comment on above: Order Comment: Speci men Type: BLOOD SPECIMENOrdering Facility: [facility] Address: [address] [place] [address] Performed By: #### 2 4323-8, , 2776-04 ####[facility] [id number] [place] [address] [place] Anion gap [Moles/Vol] 10 mmol/L Normal 9-18 [facility] Comment on above: Order Comment: Speci men Type: BLOOD SPECIMENOrdering Facility: [facility] Address: [address] [place], [place] [address] Performed By: #### 2 4323-8, , 2776-04 ####[facility] [id number] [place] [address] [place] AST [Catalytic activity/Vol] 14 U/L Normal 14-40 [facility] Comment on above: Order Comment: Speci men Type: BLOOD SPECIMENOrdering Facility: [facility] Address: [address] [place], [place] [address] Performed By: #### 2 4323-8, , 2776-04 ####[facility] [id number] [place] [id number] [place] Bilirubin [Mass/Vol] 1.8 mg/dL High 0.2-1.3 [facility] Comment on above: Order Comment: Speci men Type: BLOOD SPECIMENOrdering Facility: [facility] Address: [address] [place] [address] Performed By: #### 2 4323-8, , 2776-04 ####[facility] [id number] [address] [address] [place] Calcium [Mass/Vol] 8.7 mg/dL Normal 8.5-10.2 [facility] Comment on above: Order Comment: Speci men Type: BLOOD SPECIMENOrdering Facility: [facility] Address: [address] [place], [place] [address] Performed By: #### 2 4323-8, , 2776-04 ####[facility] [id number] [place] [id number] [place] Chloride [Moles/Vol] 95 mmol/L Low 97-105 [facility] Comment on above: Order Comment: Speci men Type: BLOOD SPECIMENOrdering Facility: [facility] Address: [address] [place], [place] [address] Performed By: #### 2 4323-8, , 2776-04 ####[facility] [id number] [place] [address] [place] CO2 [Moles/Vol] 39 mmol/L High 22-30 [facility] Comment on above: Order Comment: Speci men Type: BLOOD SPECIMENOrdering Facility: [facility] Address: [address] [place] [address] Performed By: #### 2 4323-8, , 2776-04 ####[facility] [id number] [address] [address] [place] Creatinine [Mass/Vol] 1.65 mg/dL High 0.73-1.22 [facility] Comment on above: Order Comment: Speci men Type: BLOOD SPECIMENOrdering Facility: [facility] Address: [address] [place] [address] Performed By: #### 2 4323-8, 59635-2, 2777-1 ####[facility] [id number] [place] [id number] [place] Creatinine and Glomerular filtration rate.predicted panel (S/P/Bld) 52 mL/min/1.73m??? Low >=60 [facility] Comment on above: Order Comment: Van maier Type: BLOOD SPECIMENOrdering Facility: [facility] Address: [address] [place] [address] Result Comment: Hiral mated Glomerular Filtration Rate [...] actual GFR. Performed By: #### 2 4323-8, 75021-8, 2776-04 ####[facility] [id number] [place] [address] [place] Glucose [Mass/Vol] 100 mg/dL High 74-99 [facility] Comment on above: Order Comment: [place] maier Type: BLOOD SPECIMENOrdering Facility: [facility] Address: [address] [place] [address] Result Comment: The [place] [employer] (ADA) provides guidance for cutoff values for fasting glucose and random glucose. The ADA defines fasting as no caloric intake for at least 8 hours. Fasting plasma glucose results between 100 to 125 mg/dL indicate increased risk for diabetes (prediabetes).Fasting plasma glucose results greater than or equal to 126 mg/dL meet the criteria for diagnosis of diabetes. In the absence of unequivocal hyperglycemia, results should be confirmed by repeat testing. In a patient with classic symptoms of hyperglycemia or hyperglycemic crisis, random plasma glucose results greater than or equal to 200 mg/dL meet the criteria for diagnosis of diabetes.Reference: Standards of Medical Care in Diabetes 2016, [place] [employer]. Diabetes Care. 2016.39(Suppl 1). Performed By: #### 2 4323-8, , 2776-04 ####[facility] [id number] [address] [address] [place] Potassium [Moles/Vol] 3.4 mmol/L Low 3.7-5.1 [facility] Comment on above: Order Comment: Speci men Type: BLOOD SPECIMENOrdering Facility: [facility] Address: [address] [place] [address] Performed By: #### 2 4323-8, , 2776-04 ####[facility] [id number] [place] [address] [place] Protein [Mass/Vol] 7.8 g/dL Normal 6.3-8.0 [facility] Comment on above: Order Comment: Speci men Type: BLOOD SPECIMENOrdering Facility: [facility] Address: [address] [place] [address] Performed By: #### 2 4323-8, , 2776-04 ####[facility] [id number] [place] [address] [place] Sodium [Moles/Vol] 144 mmol/L Normal 136-144 [facility] Comment on above: Order Comment: Speci men Type: BLOOD SPECIMENOrdering Facility: [facility] Address: [address] [place] [address] Performed By: #### 2 4323-8, , 2776-04 ####[facility] [id number] [address] [address] [place] Urea nitrogen [Mass/Vol] 11 mg/dL Normal 9-24 [facility] Comment on above: Order Comment: Speci men Type: BLOOD SPECIMENOrdering Facility: [facility] Address: [address] [place], [place] [address] Performed By: #### 2 4323-8, , 2776-04 ####[facility] [id number] [place] [address] [place] Gas and Carbon monoxide pane l (BldV)on 05-27-2023 Base excess Calc (BldV) [Moles/Vol] 11 mmol/L High 0-2 [facility] Comment on above: Order Comment: Speci men Type: VENOUS BLOOD SPECIMENOrdering Facility: [facility] Address: [address] [place] [address] Performed By: #### 2 4344-4 ####[facility] [id number] [place] [address] [place] Body temperature 98.6 [degF] Normal [facility] Comment on above: Order Comment: Speci men Type: VENOUS BLOOD SPECIMENOrdering Facility: [facility] Address: [address] [place] [address] Performed By: #### 2 4344-4 ####[facility] [id number] [place] [address] [place] Calcium.ionized (Bld) [Mass/Vol] 1.05 mmol/L Low 1.08-1.30 [facility] Comment on above: Order Comment: Speci men Type: VENOUS BLOOD SPECIMENOrdering Facility: [facility] Address: [address] [place] [address] Performed By: #### 2 4344-4 ####[facility] [id number] [place] [address] [place] Calcium.ionized adjusted to pH 7.4 (BldA) [Moles/Vol] 1.02 mmol/L Low 1.08-1.30 [facility] Comment on above: Order Comment: Speci men Type: VENOUS BLOOD SPECIMENOrdering Facility: [facility] Address: [address] [place] [address] Performed By: #### 2 4344-4 ####[facility] [id number] [place] [address] [place] Carboxyhemoglobin (BldV) [Mass fraction] 2.4 % High 0.0-2.0 [facility] Comment on above: Order Comment: Speci men Type: VENOUS BLOOD SPECIMENOrdering Facility: [facility] Address: [address] [place] [address] Result Comment: Carb oxyhemoglobin Reference Range for Smokers: 2.0-8.0% Performed By: #### 2 4344-4 ####[facility] [id number] [place] [address] [place] CO2 (BldV) [Partial pressure] 74 mm[Hg] High 42-55 [facility] Comment on above: Order Comment: Speci men Type: VENOUS BLOOD SPECIMENOrdering Facility: [facility] Address: [address] [place] [address] Performed By: #### 2 4344-4 ####[facility] [id number] [place] [address] [place] Glucose [Mass/Vol] 100 mg/dL Normal 60-105 [facility] Comment on above: Order Comment: Speci men Type: VENOUS BLOOD SPECIMENOrdering Facility: [facility] Address: [address] [place] [address] Performed By: #### 2 4344-4 ####[facility] [id number] [place] [address] [place] HCO3 (Bld) [Moles/Vol] 39 mmol/L High 24-28 [facility] Comment on above: Order Comment: Speci men Type: VENOUS BLOOD SPECIMENOrdering Facility: [facility] Address: [address] [place] [address] Performed By: #### 2 4344-4 ####[facility] [id number] [place] [address] [place] Hematocrit (Bld) [Volume fraction] 31.0 % Low 39.0-51.0 [facility] Comment on above: Order Comment: Speci men Type: VENOUS BLOOD SPECIMENOrdering Facility: [facility] Address: [address] [place] [address] Performed By: #### 2 4344-4 ####[facility] [id number] [place] [address] [place] Hemoglobin (Bld) [Mass/Vol] 10.0 g/dL Low 13.0-17.0 [facility] Comment on above: Order Comment: Speci men Type: VENOUS BLOOD SPECIMENOrdering Facility: [facility] Address: [address] [place] [address] Performed By: #### 2 4344-4 ####[facility] [id number] [place] [address] [place] Lactate [Moles/Vol] 0.8 mmol/L Normal 0.5-2.2 [facility] Comment on above: Order Comment: Speci men Type: VENOUS BLOOD SPECIMENOrdering Facility: [facility] Address: [address] [place] [address] Performed By: #### 2 4344-4 ####[facility] [id number] [place] [address] [place] Methemoglobin (Bld) [Mass fraction] 1.3 % Normal 0.0-1.5 [facility] Comment on above: Order Comment: Speci men Type: VENOUS BLOOD SPECIMENOrdering Facility: [facility] Address: [address] [place] [address] Performed By: #### 2 4344-4 ####[facility] [id number] [place] [address] [place] O2 THERAPY NC = Nasal Cannula Normal [facility] Comment on above: Order Comment: Speci men Type: VENOUS BLOOD SPECIMENOrdering Facility: [facility] Address: [address] [place] [address] Result Comment: Prin ter not working Performed By: #### 2 4344-4 ####[facility] [id number] [address] [address] [place] Oxygen (BldV) [Partial pressure] 43 mm[Hg] Normal 35-45 [facility] Comment on above: Order Comment: Speci men Type: VENOUS BLOOD SPECIMENOrdering Facility: [facility] Address: [address] [place] [address] Performed By: #### 2 4344-4 ####[facility] [id number] [place] [address] [place] Oxygen saturation in Venous blood 73 % Normal 60-85 [facility] Comment on above: Order Comment: Speci men Type: VENOUS BLOOD SPECIMENOrdering Facility: [facility] Address: [address] [place] [address] Performed By: #### 2 4344-4 ####[facility] [id number] [place] [address] [place] Oxyhemoglobin (BldV) [Mass fraction] 71 % Normal 60-85 [facility] Comment on above: Order Comment: Speci men Type: VENOUS BLOOD SPECIMENOrdering Facility: [facility] Address: [address] [place] [address] Performed By: #### 2 4344-4 ####[facility] [id number] [place] [address] [place] pH (BldV) 7.34 [pH] Normal 7.32-7.42 [facility] Comment on above: Order Comment: Speci men Type: VENOUS BLOOD SPECIMENOrdering Facility: [facility] Address: [address] [place] [address] Performed By: #### 2 4344-4 ####[facility] [id number] [place] [address] [place] Potassium [Moles/Vol] 3.5 mmol/L Normal 3.5-5.0 [facility] Comment on above: Order Comment: Speci men Type: VENOUS BLOOD SPECIMENOrdering Facility: [facility] Address: [address] [place] [address] Performed By: #### 2 4344-4 ####[facility] [id number] [place] [address] [place] Sodium [Moles/Vol] 143 mmol/L Normal 136-144 [facility] Comment on above: Order Comment: Speci men Type: VENOUS BLOOD SPECIMENOrdering Facility: [facility] Address: [address] [place] [address] Performed By: #### 2 4344-4 ####[facility] [id number] [place] [address] [place] Magnesium SerPl-ncon 05-27 Magnesium [Mass/Vol] 2.0 mg/dL Normal 1.7-2.3 [facility] Comment on above: Order Comment: Speci men Type: BLOOD SPECIMENOrdering Facility: [facility] Address: [address] [place] [address] Performed By: #### 2 4323-8, 40349-3, 27771 ####[facility] [id number] [place] [address] [place] PT EDon 05-27-2023 PT ED Normal [facility] Phosphate SerPl-mCncon 05-27 Phosphate [Mass/Vol] 2.9 mg/dL Normal 2.7-4.8 [facility] Comment on above: Order Comment: Speci men Type: BLOOD SPECIMENOrdering Facility: [facility] Address: [address] [place] [address] Performed By: #### 2 4323-8, 91612-0, 2777-1 ####[facility] [id number] [address] [id number] [address] [place] THERAPY NTon 05-27-2023 THERAPY NT Normal [facility] THERAPY NT Normal [facility] XR CHEST 1V FRONTAL PORTon 0 05-27-2023 XR CHEST 1V FRONTAL PORT Normal [facility] ALLIED HEALTHon 05-26-2023 ALLIED HEALTH Normal [facility] Basic metabolic 2000 panelon 05-26-2023 Anion gap [Moles/Vol] 11 mmol/L Normal 9-18 [facility] Comment on above: Order Comment: Speci men Type: BLOOD SPECIMENOrdering Facility: [facility] Address: [address] [place] [address] Performed By: #### 2 777-1, , ####[facility] [id number] [address] [address] [place] Calcium [Mass/Vol] 8.5 mg/dL Normal 8.5-10.2 [facility] Comment on above: Order Comment: Speci men Type: BLOOD SPECIMENOrdering Facility: [facility] Address: [address] [place] [address] Performed By: #### 2 777-1, , ####[facility] [id number] [address] [address] [place] Chloride [Moles/Vol] 97 mmol/L Normal 97-105 [facility] Comment on above: Order Comment: Speci men Type: BLOOD SPECIMENOrdering Facility: [facility] Address: [address] [place] [address] Performed By: #### 2 777-1, , ####[facility] [id number] [address] [address] [place] CO2 [Moles/Vol] 36 mmol/L High 22-30 [facility] Comment on above: Order Comment: Speci men Type: BLOOD SPECIMENOrdering Facility: [facility] Address: [address] [place] [address] Performed By: #### 2 777-1, , ####[facility] [id number] [place] [id number] [place] Creatinine [Mass/Vol] 1.59 mg/dL High 0.73-1.22 [facility] Comment on above: Order Comment: Speci men Type: BLOOD SPECIMENOrdering Facility: [facility] Address: [address] [place] [address] Performed By: #### 2 777-1, , ####[facility] [id number] [place] [address] [place] Creatinine and Glomerular filtration rate.predicted panel (S/P/Bld) 54 mL/min/1.73m??? Low >=60 [facility] Comment on above: Order Comment: Van men Type: BLOOD SPECIMENOrdering Facility: [facility] Address: [address] [place] [address] Result Comment: Hiral mated Glomerular Filtration Rate [...] reflect actual GFR. Performed By: #### 2 777-1, , 07818-8 ####[facility] [id number] [place] [id number] [place] Glucose [Mass/Vol] 101 mg/dL High 74-99 [facility] Comment on above: Order Comment: Speci men Type: BLOOD SPECIMENOrdering Facility: [facility] Address: [address] [place] [address] Result Comment: The [place] [employer] (ADA) provides guidance for cutoff values for fasting glucose and random glucose. The ADA defines fasting as no caloric intake for at least 8 hours. Fasting plasma glucose results between 100 to 125 mg/dL indicate increased risk for diabetes (prediabetes).Fasting plasma glucose results greater than or equal to 126 mg/dL meet the criteria for diagnosis of diabetes. In the absence of unequivocal hyperglycemia, results should be confirmed by repeat testing. In a patient with classic symptoms of hyperglycemia or hyperglycemic crisis, random plasma glucose results greater than or equal to 200 mg/dL meet the criteria for diagnosis of diabetes.Reference: Standards of Medical Care in Diabetes 2016, [place] [employer]. Diabetes Care. 2016.39(Suppl 1). Performed By: #### 2 777-1, , ####[facility] [id number] [place] [address] [place] Potassium [Moles/Vol] 3.5 mmol/L Low 3.7-5.1 [facility] Comment on above: Order Comment: Speci men Type: BLOOD SPECIMENOrdering Facility: [facility] Address: [address] [place] [address] Performed By: #### 2 777-, , ####[facility] [id number] [place] [address] [place] Sodium [Moles/Vol] 144 mmol/L Normal 136-144 [facility] Comment on above: Order Comment: Speci men Type: BLOOD SPECIMENOrdering Facility: [facility] Address: [address] [place], [place] [address] Performed By: #### 2 777-, , ####[facility] [id number] [place] [id number] [place] Urea nitrogen [Mass/Vol] 11 mg/dL Normal 9-24 [facility] Comment on above: Order Comment: Speci men Type: BLOOD SPECIMENOrdering Facility: [facility] Address: [address] [id number] Performed By: #### 2 777-1, , 22309-9 ####[facility] [id number] [place] [address] [place] CASE MANAGEMon 05-26-2023 CASE MANAGEM Normal [facility] CBC W Auto Differential pane l (Bld)on 05-26-2023 Basophils (Bld) [#/Vol] 10*3/uL Normal <0.11 [facility] Comment on above: Order Comment: Speci men Type: BLOOD SPECIMENOrdering Facility: [facility] Address: [address] [place] [address] Performed By: #### 5 7021-8 ####[facility] [id number] [place] [address] [place] Basophils/100 WBC (Bld) 0.3 % Normal [facility] Comment on above: Order Comment: Speci men Type: BLOOD SPECIMENOrdering Facility: [facility] Address: [address] [place] [address] Performed By: #### 5 7021-8 ####[facility] [id number] [place] [address] [place] Differential cell count method Nom (Bld) Auto Normal [facility] Comment on above: Order Comment: Speci men Type: BLOOD SPECIMENOrdering Facility: [facility] Address: [address] [place] [address] Performed By: #### 5 7021-8 ####[facility] [id number] [place] [address] [place] Eosinophils (Bld) [#/Vol] 0.05 10*3/uL Normal <0.46 [facility] Comment on above: Order Comment: Speci men Type: BLOOD SPECIMENOrdering Facility: [facility] Address: [address] [place] [address] Performed By: #### 5 7021-8 ####[facility] [id number] [address] [id number] [address] [place] Eosinophils/100 WBC (Bld) 0.8 % Normal [facility] Comment on above: Order Comment: Speci men Type: BLOOD SPECIMENOrdering Facility: [facility] Address: [address] [place] [address] Performed By: #### 5 7021-8 ####[facility] [id number] [place] [address] [place] Erythrocyte distribution width (RBC) [Ratio] 15.7 % High 11.5-15.0 [facility] Comment on above: Order Comment: Speci men Type: BLOOD SPECIMENOrdering Facility: [facility] Address: [address] [place] [address] Performed By: #### 5 7021-8 ####[facility] [id number] [place] [address] [place] Hematocrit (Bld) [Volume fraction] 35.2 % Low 39.0-51.0 [facility] Comment on above: Order Comment: Speci men Type: BLOOD SPECIMENOrdering Facility: [facility] Address: [address] [place] [address] Performed By: #### 5 7021-8 ####[facility] [id number] [place] [address] [place] Hemoglobin (Bld) [Mass/Vol] 10.2 g/dL Low 13.0-17.0 [facility] Comment on above: Order Comment: Speci men Type: BLOOD SPECIMENOrdering Facility: [facility] Address: [address] [place] [address] Performed By: #### 5 7021-8 ####[facility] [id number] [place] [address] [place] Immature granulocytes (Bld) [#/Vol] 10*3/uL Normal <0.10 [facility] Comment on above: Order Comment: Speci men Type: BLOOD SPECIMENOrdering Facility: [facility] Address: [address] [place] [address] Performed By: #### 5 7021-8 ####[facility] [id number] [place] [address] [place] Immature granulocytes/100 WBC (Bld) 0.3 % Normal [facility] Comment on above: Order Comment: Speci men Type: BLOOD SPECIMENOrdering Facility: [facility] Address: [address] [place] [address] Performed By: #### 5 7021-8 ####[facility] [id number] [place] [address] [place] Lymphocytes (Bld) [#/Vol] 0.69 10*3/uL Low 1.00-4.00 [facility] Comment on above: Order Comment: Speci men Type: BLOOD SPECIMENOrdering Facility: [facility] Address: [address] [place] [address] Performed By: #### 5 7021-8 ####[facility] [id number] [place] [address] [place] Lymphocytes/100 WBC (Bld) 10.6 % Normal [facility] Comment on above: Order Comment: Speci men Type: BLOOD SPECIMENOrdering Facility: [facility] Address: [address] [place] [address] Performed By: #### 5 7021-8 ####[facility] [id number] [place] [address] [place] MCH (RBC) [Entitic mass] 27.6 pg Normal 26.0-34.0 [facility] Comment on above: Order Comment: Speci men Type: BLOOD SPECIMENOrdering Facility: [facility] Address: [address] [place] [address] Performed By: #### 5 7021-8 ####[facility] [id number] [place] [id number] [place] MCHC (RBC) [Mass/Vol] 29.0 g/dL Low 30.5-36.0 [facility] Comment on above: Order Comment: Speci men Type: BLOOD SPECIMENOrdering Facility: [facility] Address: [address] [place] [address] Performed By: #### 5 7021-8 ####[facility] [id number] [place] [address] [place] MCV (RBC) [Entitic vol] 95.4 fL Normal 80.0-100.0 [facility] Comment on above: Order Comment: Speci men Type: BLOOD SPECIMENOrdering Facility: [facility] Address: [address] [place] [address] Performed By: #### 5 7021-8 ####[facility] [id number] [place] [address] [place] Monocytes (Bld) [#/Vol] 0.70 10*3/uL Normal <0.87 [facility] Comment on above: Order Comment: Speci men Type: BLOOD SPECIMENOrdering Facility: [facility] Address: [address] [place] [address] Performed By: #### 5 7021-8 ####[facility] [id number] [place] [address] [place] Monocytes/100 WBC (Bld) 10.7 % Normal [facility] Comment on above: Order Comment: Speci men Type: BLOOD SPECIMENOrdering Facility: [facility] Address: [address] [place] [address] Performed By: #### 5 7021-8 ####[facility] [id number] [place] [address] [place] Neutrophils (Bld) [#/Vol] 5.05 10*3/uL Normal 1.45-7.50 [facility] Comment on above: Order Comment: Speci men Type: BLOOD SPECIMENOrdering Facility: [facility] Address: [address] [place] [address] Performed By: #### 5 7021-8 ####[facility] [id number] [place] [address] [place] Neutrophils/100 WBC (Bld) 77.3 % Normal [facility] Comment on above: Order Comment: Speci men Type: BLOOD SPECIMENOrdering Facility: [facility] Address: [address] [place] [address] Performed By: #### 5 7021-8 ####[facility] [id number] [place] [address] [place] Nucleated RBC (Bld) [#/Vol] 10*3/uL Normal <0.01 [facility] Comment on above: Order Comment: Speci men Type: BLOOD SPECIMENOrdering Facility: [facility] Address: [address] [place] [address] Performed By: #### 5 7021-8 ####[facility] [id number] [place] [address] [place] Nucleated RBC/100 WBC (Bld) [Ratio] 0.0 /100 WBC Normal [facility] Comment on above: Order Comment: Speci men Type: BLOOD SPECIMENOrdering Facility: [facility] Address: [address] [place] [address] Performed By: #### 5 7021-8 ####[facility] [id number] [place] [address] [place] Platelet mean volume (Bld) [Entitic vol] 10.8 fL Normal 9.0-12.7 [facility] Comment on above: Order Comment: Speci men Type: BLOOD SPECIMENOrdering Facility: [facility] Address: [address] [place] [address] Performed By: #### 5 7021-8 ####[facility] [id number] [place] [address] [place] Platelets (Bld) [#/Vol] 189 10*3/uL Normal 150-400 [facility] Comment on above: Order Comment: Speci men Type: BLOOD SPECIMENOrdering Facility: [facility] Address: [address] [place] [address] Performed By: #### 5 7021-8 ####[facility] [id number] [place] [address] [place] RBC (Bld) [#/Vol] 3.69 10*6/uL Low 4.20-6.00 [facility] Comment on above: Order Comment: Speci men Type: BLOOD SPECIMENOrdering Facility: [facility] Address: [address] [place] [address] Performed By: #### 5 7021-8 ####[facility] [id number] [place] [address] [place] WBC (Bld) [#/Vol] 6.53 10*3/uL Normal 3.70-11.00 [facility] Comment on above: Order Comment: Speci men Type: BLOOD SPECIMENOrdering Facility: [facility] Address: [address] [place] [address] Performed By: #### 5 7021-8 ####[facility] [id number] [place] [address] [place] Gas and Carbon monoxide pane l (BldV)on 05-26-2023 Base excess Calc (BldV) [Moles/Vol] 10 mmol/L High 0-2 [facility] Comment on above: Order Comment: Speci men Type: VENOUS BLOOD SPECIMENOrdering Facility: [facility] Address: [address] [place] [address] Performed By: #### 2 4344-4 ####[facility] [id number] [place] [address] [place] Body temperature 98.6 [degF] Normal [facility] Comment on above: Order Comment: Speci men Type: VENOUS BLOOD SPECIMENOrdering Facility: [facility] Address: [address] [place] [address] Performed By: #### 2 4344-4 ####[facility] [id number] [place] [address] [place] Calcium.ionized (Bld) [Mass/Vol] 1.10 mmol/L Normal 1.08-1.30 [facility] Comment on above: Order Comment: Speci men Type: VENOUS BLOOD SPECIMENOrdering Facility: [facility] Address: [address] [place] [address] Performed By: #### 2 4344-4 ####[facility] [id number] [place] [address] [place] Calcium.ionized adjusted to pH 7.4 (BldA) [Moles/Vol] 1.05 mmol/L Low 1.08-1.30 [facility] Comment on above: Order Comment: Speci men Type: VENOUS BLOOD SPECIMENOrdering Facility: [facility] Address: [address] [place] [address] Performed By: #### 2 4344-4 ####[facility] [id number] [place] [address] [place] Carboxyhemoglobin (BldV) [Mass fraction] 2.0 % Normal 0.0-2.0 [facility] Comment on above: Order Comment: Speci men Type: VENOUS BLOOD SPECIMENOrdering Facility: [facility] Address: [address] [place] [address] Result Comment: Carb oxyhemoglobin Reference Range for Smokers: 2.0-8.0% Performed By: #### 2 4344-4 ####[facility] [id number] [place] [address] [place] CO2 (BldV) [Partial pressure] 79 mm[Hg] High 42-55 [facility] Comment on above: Order Comment: Speci men Type: VENOUS BLOOD SPECIMENOrdering Facility: [facility] Address: [address] [place] [id number] Performed By: #### 2 4344-4 ####[facility] [id number] [place] [address] [place] Glucose [Mass/Vol] 109 mg/dL High 60-105 [facility] Comment on above: Order Comment: Speci men Type: VENOUS BLOOD SPECIMENOrdering Facility: [facility] Address: [address] [place] [id number] Performed By: #### 2 4344-4 ####[facility] [id number] [place] [address] [place] HCO3 (Bld) [Moles/Vol] 39 mmol/L High 24-28 [facility] Comment on above: Order Comment: Speci men Type: VENOUS BLOOD SPECIMENOrdering Facility: [facility] Address: [address] [place], [place] [address] Performed By: #### 2 4344-4 ####[facility] [id number] [place] [address] [place] Hematocrit (Bld) [Volume fraction] 34.5 % Low 39.0-51.0 [facility] Comment on above: Order Comment: Speci men Type: VENOUS BLOOD SPECIMENOrdering Facility: [facility] Address: [address] [place] [id number] Performed By: #### 2 4344-4 ####[facility] [id number] [place] [address] [place] Hemoglobin (Bld) [Mass/Vol] 11.2 g/dL Low 13.0-17.0 [facility] Comment on above: Order Comment: Speci men Type: VENOUS BLOOD SPECIMENOrdering Facility: [facility] Address: [address] [place], [place] [address] Performed By: #### 2 4344-4 ####[facility] [id number] [place] [address] [place] Lactate [Moles/Vol] 1.3 mmol/L Normal 0.5-2.2 [facility] Comment on above: Order Comment: Speci men Type: VENOUS BLOOD SPECIMENOrdering Facility: [facility] Address: [address] [place] [address] Performed By: #### 2 4344-4 ####[facility] [id number] [place] [address] [place] Methemoglobin (Bld) [Mass fraction] 1.1 % Normal 0.0-1.5 [facility] Comment on above: Order Comment: Speci men Type: VENOUS BLOOD SPECIMENOrdering Facility: [facility] Address: [address] [place] [address] Performed By: #### 2 4344-4 ####[facility] [id number] [place] [address] [place] O2 THERAPY RA=Room Air Normal [facility] Comment on above: Order Comment: Speci men Type: VENOUS BLOOD SPECIMENOrdering Facility: [facility] Address: [address] [place] [address] Result Comment: prin ter not working Performed By: #### 2 4344-4 ####[facility] [id number] [place] [address] [place] Oxygen (BldV) [Partial pressure] 46 mm[Hg] High 35-45 [facility] Comment on above: Order Comment: Speci men Type: VENOUS BLOOD SPECIMENOrdering Facility: [facility] Address: [address] [place] [address] Performed By: #### 2 4344-4 ####[facility] [id number] [address] [id number] [address] [place] Oxygen saturation in Venous blood 75 % Normal 60-85 [facility] Comment on above: Order Comment: Speci men Type: VENOUS BLOOD SPECIMENOrdering Facility: [facility] Address: [address] [place] [address] Performed By: #### 2 4344-4 ####[facility] [id number] [address] [address] [place] Oxyhemoglobin (BldV) [Mass fraction] 73 % Normal 60-85 [facility] Comment on above: Order Comment: Speci men Type: VENOUS BLOOD SPECIMENOrdering Facility: [facility] Address: [address] [place], [place] [id number] Performed By: #### 2 4344-4 ####[facility] [id number] [place] [address] [place] pH (BldV) 7.31 [pH] Low 7.32-7.42 [facility] Comment on above: Order Comment: Speci men Type: VENOUS BLOOD SPECIMENOrdering Facility: [facility] Address: [address] [place], [place] [address] Performed By: #### 2 4344-4 ####[facility] [id number] [place] [id number] [place] Potassium [Moles/Vol] 3.3 mmol/L Low 3.5-5.0 [facility] Comment on above: Order Comment: Speci men Type: VENOUS BLOOD SPECIMENOrdering Facility: [facility] Address: [address] [place] [address] Performed By: #### 2 4344-4 ####[facility] [id number] [place] [id number] [place] Sodium [Moles/Vol] 143 mmol/L Normal 136-144 [facility] Comment on above: Order Comment: Speci men Type: VENOUS BLOOD SPECIMENOrdering Facility: [facility] Address: [address] [place] [address] Performed By: #### 2 4344-4 ####[facility] [id number] [address] [address] [place] Magnesium SerPl-mCncon 05-26 Magnesium [Mass/Vol] 2.1 mg/dL Normal 1.7-2.3 [facility] Comment on above: Order Comment: Speci men Type: BLOOD SPECIMENOrdering Facility: [facility] Address: [address] [facility] [place] [id number] Performed By: #### 2 777-1, 77070-5, 71635-7 ####[facility] [id number] [place] [id number] [place] PT EDon 05-26-2023 PT ED Normal [facility] Phosphate SerPl-ncon 05-26 Phosphate [Mass/Vol] 3.1 mg/dL Normal 2.7-4.8 [facility] Comment on above: Order Comment: Speci men Type: BLOOD SPECIMENOrdering Facility: [facility] Address: [address] [place] [id number] Performed By: #### 2 777-1, , 95708-7 ####[facility] [id number] [place] [id number] [place] THERAPY NTon 05-26-2023 THERAPY NT Normal [facility] THERAPY NT Normal [facility] THERAPY NT Normal [facility] ALLIED HEALTHon 05-25-2023 ALLIED HEALTH Normal [facility] Basic metabolic 2000 panelon 05-25-2023 Anion gap [Moles/Vol] 12 mmol/L Normal 9-18 [facility] Comment on above: Order Comment: Speci men Type: BLOOD SPECIMENOrdering Facility: [facility] Address: [address] [place] [id number] Performed By: #### 2 4321-2, 36831-8, 2777-1 ####[facility] [id number] [place] [address] [place] Calcium [Mass/Vol] 8.2 mg/dL Low 8.5-10.2 [facility] Comment on above: Order Comment: Speci men Type: BLOOD SPECIMENOrdering Facility: [facility] Address: [address] [place] [address] Performed By: #### 2 4321-2, , 2776-04 ####[facility] [id number] [place] [address] [place] Chloride [Moles/Vol] 103 mmol/L Normal 97-105 [facility] Comment on above: Order Comment: Speci men Type: BLOOD SPECIMENOrdering Facility: [facility] Address: [address] [place] [address] Performed By: #### 2 4321-2, , 2776-04 ####[facility] [id number] [place] [address] [place] CO2 [Moles/Vol] 24 mmol/L Normal 22-30 [facility] Comment on above: Order Comment: Speci men Type: BLOOD SPECIMENOrdering Facility: [facility] Address: [address] [place] [address] Performed By: #### 2 4321-2, , 2776-04 ####[facility] [id number] [place] [address] [place] Creatinine [Mass/Vol] 1.25 mg/dL High 0.73-1.22 [facility] Comment on above: Order Comment: Speci men Type: BLOOD SPECIMENOrdering Facility: [facility] Address: [address] [place] [address] Performed By: #### 2 4321-2, , 2776-04 ####[facility] [id number] [place] [address] [place] Creatinine and Glomerular filtration rate.predicted panel (S/P/Bld) 72 mL/min/1.73m??? Normal >=60 [facility] Comment on above: Order Comment: Van maier Type: BLOOD SPECIMENOrdering Facility: [facility] Address: [address] [place] [address] Result Comment: Hiral mated Glomerular Filtration Rate [...] reflect actual GFR. Performed By: #### 2 4321-2, , 2776-04 ####[facility] [id number] [place] [address] [place] Glucose [Mass/Vol] 141 mg/dL High 74-99 [facility] Comment on above: Order Comment: [place] maier Type: BLOOD SPECIMENOrdering Facility: [facility] Address: [address] [place] [address] Result Comment: The [place] [employer] (ADA) provides guidance for cutoff values for fasting glucose and random glucose. The ADA defines fasting as no caloric intake for at least 8 hours. Fasting plasma glucose results between 100 to 125 mg/dL indicate increased risk for diabetes (prediabetes).Fasting plasma glucose results greater than or equal to 126 mg/dL meet the criteria for diagnosis of diabetes. In the absence of unequivocal hyperglycemia, results should be confirmed by repeat testing. In a patient with classic symptoms of hyperglycemia or hyperglycemic crisis, random plasma glucose results greater than or equal to 200 mg/dL meet the criteria for diagnosis of diabetes.Reference: Standards of Medical Care in Diabetes 2016, [place] [employer]. Diabetes Care. 2016.39(Suppl 1). Performed By: #### 2 4321-2, , 2776-04 ####[facility] [id number] [place] [id number] [place] Potassium [Moles/Vol] 4.7 mmol/L Normal 3.7-5.1 [facility] Comment on above: Order Comment: Speci men Type: BLOOD SPECIMENOrdering Facility: [facility] Address: [address] [place] [address] Performed By: #### 2 4321-2, , 2776-04 ####[facility] [id number] [place] [address] [place] Sodium [Moles/Vol] 139 mmol/L Normal 136-144 [facility] Comment on above: Order Comment: Speci men Type: BLOOD SPECIMENOrdering Facility: [facility] Address: [address] [place] [address] Performed By: #### 2 4321-2, , 2776-04 ####[facility] [id number] [place] [address] [place] Urea nitrogen [Mass/Vol] 10 mg/dL Normal 9-24 [facility] Comment on above: Order Comment: Speci men Type: BLOOD SPECIMENOrdering Facility: [facility] Address: [address] [place] [address] Performed By: #### 2 4321-2, , 2776-04 ####[facility] [id number] [place] [address] [place] CASE MGT INIT ASSESon 2023 CASE MGT INIT ASSES Normal [facility] CBC W Auto Differential pane l (Bld)on 05-25-2023 Basophils (Bld) [#/Vol] 10*3/uL Normal <0.11 [facility] Comment on above: Order Comment: Speci men Type: BLOOD SPECIMENOrdering Facility: [facility] Address: [address] [place] [address] Performed By: #### 5 7021-8 ####[facility] [id number] [address] [place] Basophils/100 WBC (Bld) 0.1 % Normal [facility] Comment on above: Order Comment: Speci men Type: BLOOD SPECIMENOrdering Facility: [facility] Address: [address] [place] [address] Performed By: #### 5 7021-8 ####[facility] [id number] [place] [address] [place] Differential cell count method Nom (Bld) Auto Normal [facility] Comment on above: Order Comment: Speci men Type: BLOOD SPECIMENOrdering Facility: [facility] Address: [address] [place] [address] Performed By: #### 5 7021-8 ####[facility] [id number] [place] [address] [place] Eosinophils (Bld) [#/Vol] 10*3/uL Normal <0.46 [facility] Comment on above: Order Comment: Speci men Type: BLOOD SPECIMENOrdering Facility: [facility] Address: [address] [place] [address] Performed By: #### 5 7021-8 ####[facility] [id number] [place] [address] [place] Eosinophils/100 WBC (Bld) 0.1 % Normal [facility] Comment on above: Order Comment: Speci men Type: BLOOD SPECIMENOrdering Facility: [facility] Address: [address] [place] [address] Performed By: #### 5 7021-8 ####[facility] [id number] [place] [address] [place] Erythrocyte distribution width (RBC) [Ratio] 15.4 % High 11.5-15.0 [facility] Comment on above: Order Comment: Speci men Type: BLOOD SPECIMENOrdering Facility: [facility] Address: [address] [place] [address] Performed By: #### 5 7021-8 ####[facility] [id number] [place] [address] [place] Hematocrit (Bld) [Volume fraction] 34.1 % Low 39.0-51.0 [facility] Comment on above: Order Comment: Speci men Type: BLOOD SPECIMENOrdering Facility: [facility] Address: [address] [place] [address] Performed By: #### 5 7021-8 ####[facility] [id number] [place] [address] [place] Hemoglobin (Bld) [Mass/Vol] 10.3 g/dL Low 13.0-17.0 [facility] Comment on above: Order Comment: Speci men Type: BLOOD SPECIMENOrdering Facility: [facility] Address: [address] [place] [address] Performed By: #### 5 7021-8 ####[facility] [id number] [place] [address] [place] Immature granulocytes (Bld) [#/Vol] 0.04 10*3/uL Normal <0.10 [facility] Comment on above: Order Comment: Speci men Type: BLOOD SPECIMENOrdering Facility: [facility] Address: [address] [place] [address] Performed By: #### 5 7021-8 ####[facility] [id number] [place] [address] [place] Immature granulocytes/100 WBC (Bld) 0.4 % Normal [facility] Comment on above: Order Comment: Speci men Type: BLOOD SPECIMENOrdering Facility: [facility] Address: [address] [place] [address] Performed By: #### 5 7021-8 ####[facility] [id number] [place] [address] [place] Lymphocytes (Bld) [#/Vol] 0.51 10*3/uL Low 1.00-4.00 [facility] Comment on above: Order Comment: Speci men Type: BLOOD SPECIMENOrdering Facility: [facility] Address: [address] [place] [address] Performed By: #### 5 7021-8 ####[facility] [id number] [place] [address] [place] Lymphocytes/100 WBC (Bld) 4.8 % Normal [facility] Comment on above: Order Comment: Speci men Type: BLOOD SPECIMENOrdering Facility: [facility] Address: [address] [place] [address] Performed By: #### 5 7021-8 ####[facility] [id number] [place] [address] [place] MCH (RBC) [Entitic mass] 28.1 pg Normal 26.0-34.0 [facility] Comment on above: Order Comment: Speci men Type: BLOOD SPECIMENOrdering Facility: [facility] Address: [address] [place] [address] Performed By: #### 5 7021-8 ####[facility] [id number] [place] [address] [place] MCHC (RBC) [Mass/Vol] 30.2 g/dL Low 30.5-36.0 [facility] Comment on above: Order Comment: Speci men Type: BLOOD SPECIMENOrdering Facility: [facility] Address: [address] [place] [address] Performed By: #### 5 7021-8 ####[facility] [id number] [place] [address] [place] MCV (RBC) [Entitic vol] 93.2 fL Normal 80.0-100.0 [facility] Comment on above: Order Comment: Speci men Type: BLOOD SPECIMENOrdering Facility: [facility] Address: [address] [place] [address] Performed By: #### 5 7021-8 ####[facility] [id number] [place] [address] [place] Monocytes (Bld) [#/Vol] 0.53 10*3/uL Normal <0.87 [facility] Comment on above: Order Comment: Speci men Type: BLOOD SPECIMENOrdering Facility: [facility] Address: [address] [place] [address] Performed By: #### 5 7021-8 ####[facility] [id number] [place] [address] [place] Monocytes/100 WBC (Bld) 5.0 % Normal [facility] Comment on above: Order Comment: Speci men Type: BLOOD SPECIMENOrdering Facility: [facility] Address: [address] [place] [address] Performed By: #### 5 7021-8 ####[facility] [id number] [place] [address] [place] Neutrophils (Bld) [#/Vol] 9.46 10*3/uL High 1.45-7.50 [facility] Comment on above: Order Comment: Speci men Type: BLOOD SPECIMENOrdering Facility: [facility] Address: [address] [place] [address] Performed By: #### 5 7021-8 ####[facility] [id number] [place] [address] [place] Neutrophils/100 WBC (Bld) 89.6 % Normal [facility] Comment on above: Order Comment: Speci men Type: BLOOD SPECIMENOrdering Facility: [facility] Address: [address] [place] [address] Performed By: #### 5 7021-8 ####[facility] [id number] [place] [address] [place] Nucleated RBC (Bld) [#/Vol] 10*3/uL Normal <0.01 [facility] Comment on above: Order Comment: Speci men Type: BLOOD SPECIMENOrdering Facility: [facility] Address: [address] [place] [address] Performed By: #### 5 7021-8 ####[facility] [id number] [place] [address] [place] Nucleated RBC/100 WBC (Bld) [Ratio] 0.0 /100 WBC Normal [facility] Comment on above: Order Comment: Speci men Type: BLOOD SPECIMENOrdering Facility: [facility] Address: [address] [place] [address] Performed By: #### 5 7021-8 ####[facility] [id number] [place] [address] [place] Platelet mean volume (Bld) [Entitic vol] 11.1 fL Normal 9.0-12.7 [facility] Comment on above: Order Comment: Speci men Type: BLOOD SPECIMENOrdering Facility: [facility] Address: [address] [place] [address] Performed By: #### 5 7021-8 ####[facility] [id number] [place] [address] [place] Platelets (Bld) [#/Vol] 185 10*3/uL Normal 150-400 [facility] Comment on above: Order Comment: Speci men Type: BLOOD SPECIMENOrdering Facility: [facility] Address: [address] [place] [address] Performed By: #### 5 7021-8 ####[facility] [id number] [place] [address] [place] RBC (Bld) [#/Vol] 3.66 10*6/uL Low 4.20-6.00 [facility] Comment on above: Order Comment: Speci men Type: BLOOD SPECIMENOrdering Facility: [facility] Address: [address] [place] [address] Performed By: #### 5 7021-8 ####[facility] [id number] [place] [address] [place] WBC (Bld) [#/Vol] 10.56 10*3/uL Normal 3.70-11.00 [facility] Comment on above: Order Comment: Speci men Type: BLOOD SPECIMENOrdering Facility: [facility] Address: [address] [place] [address] Performed By: #### 5 7021-8 ####[facility] [id number] [place] [address] [place] CBC panel Auto (Bld)on 05-25 Erythrocyte distribution width (RBC) [Ratio] 15.5 % High 11.5-15.0 [facility] Comment on above: Order Comment: Speci men Type: BLOOD SPECIMENOrdering Facility: [facility] Address: [address] [place] [address] Performed By: #### 5 8410-2 ####[facility] [id number] [place] [address] [place] Hematocrit (Bld) [Volume fraction] 34.9 % Low 39.0-51.0 [facility] Comment on above: Order Comment: Speci men Type: BLOOD SPECIMENOrdering Facility: [facility] Address: [address] [place] [address] Performed By: #### 5 8410-2 ####[facility] [id number] [place] [address] [place] Hemoglobin (Bld) [Mass/Vol] 10.4 g/dL Low 13.0-17.0 [facility] Comment on above: Order Comment: Speci men Type: BLOOD SPECIMENOrdering Facility: [facility] Address: [address] [place] [address] Performed By: #### 5 8410-2 ####[facility] [id number] [place] [address] [place] MCH (RBC) [Entitic mass] 27.7 pg Normal 26.0-34.0 [facility] Comment on above: Order Comment: Speci men Type: BLOOD SPECIMENOrdering Facility: [facility] Address: [address] [place] [address] Performed By: #### 5 8410-2 ####[facility] [id number] [place] [address] [place] MCHC (RBC) [Mass/Vol] 29.8 g/dL Low 30.5-36.0 [facility] Comment on above: Order Comment: Speci men Type: BLOOD SPECIMENOrdering Facility: [facility] Address: [address] [place] [address] Performed By: #### 5 8410-2 ####[facility] [id number] [place] [address] [place] MCV (RBC) [Entitic vol] 93.1 fL Normal 80.0-100.0 [facility] Comment on above: Order Comment: Speci men Type: BLOOD SPECIMENOrdering Facility: [facility] Address: [address] [place] [address] Performed By: #### 5 8410-2 ####[facility] [id number] [place] [address] [place] Nucleated RBC (Bld) [#/Vol] 10*3/uL Normal <0.01 [facility] Comment on above: Order Comment: Speci men Type: BLOOD SPECIMENOrdering Facility: [facility] Address: [address] [place] [address] Performed By: #### 5 8410-2 ####[facility] [id number] [place] [address] [place] Platelet mean volume (Bld) [Entitic vol] 10.8 fL Normal 9.0-12.7 [facility] Comment on above: Order Comment: Speci men Type: BLOOD SPECIMENOrdering Facility: [facility] Address: [address] [place] [address] Performed By: #### 5 8410-2 ####[facility] [id number] [place] [address] [place] Platelets (Bld) [#/Vol] 192 10*3/uL Normal 150-400 [facility] Comment on above: Order Comment: Speci men Type: BLOOD SPECIMENOrdering Facility: [facility] Address: [address] [place] [address] Performed By: #### 5 8410-2 ####[facility] [id number] [place] [address] [place] RBC (Bld) [#/Vol] 3.75 10*6/uL Low 4.20-6.00 [facility] Comment on above: Order Comment: Speci men Type: BLOOD SPECIMENOrdering Facility: [facility] Address: [address] [place] [address] Performed By: #### 5 8410-2 ####[facility] [id number] [place] [address] [place] WBC (Bld) [#/Vol] 8.42 10*3/uL Normal 3.70-11.00 [facility] Comment on above: Order Comment: Speci men Type: BLOOD SPECIMENOrdering Facility: [facility] Address: [address] [place] [address] Performed By: #### 5 8410-2 ####[facility] [id number] [place] [id number] [place] CONSULTon 05-25-2023 CONSULT Normal [facility] metabolic 2000 panelon 05-25-2023 Albumin [Mass/Vol] 3.9 g/dL Normal 3.9-4.9 [facility] Comment on above: Order Comment: Speci men Type: BLOOD SPECIMENOrdering Facility: [facility] Address: [address] [place] [address] Performed By: #### 1 9123-9, 2777-1, 99135-3 ####[facility] [id number] [place] [address] [place] ALP [Catalytic activity/Vol] 43 U/L Normal 38-113 [facility] Comment on above: Order Comment: Speci men Type: BLOOD SPECIMENOrdering Facility: [facility] Address: [address] [place] [address] Performed By: #### 1 9123-9, 27771, 85485-4 ####[facility] [id number] [place] [address] [place] ALT [Catalytic activity/Vol] 14 U/L Normal 10-54 [facility] Comment on above: Order Comment: Speci men Type: BLOOD SPECIMENOrdering Facility: [facility] Address: [address] [place] [address] Performed By: #### 1 9123-9, 27710-23, 74878-8 ####[facility] [id number] [place] [address] [place] Anion gap [Moles/Vol] 8 mmol/L Low 9-18 [facility] Comment on above: Order Comment: Speci men Type: BLOOD SPECIMENOrdering Facility: [facility] Address: [address] [place] [address] Performed By: #### 1 9123-9, 277-, 63657-7 ####[facility] [id number] [place] [id number] [place] AST [Catalytic activity/Vol] 15 U/L Normal 14-40 [facility] Comment on above: Order Comment: Speci men Type: BLOOD SPECIMENOrdering Facility: [facility] Address: [address] [place] [address] Performed By: #### 1 9123-9, 27710-23, ####[facility] [id number] [address] [address] [place] Bilirubin [Mass/Vol] 1.3 mg/dL Normal 0.2-1.3 [facility] Comment on above: Order Comment: Speci men Type: BLOOD SPECIMENOrdering Facility: [facility] Address: [address] [place] [address] Performed By: #### 1 9123-9, 27710-23, ####[facility] [id number] [place] [address] [place] Calcium [Mass/Vol] 8.7 mg/dL Normal 8.5-10.2 [facility] Comment on above: Order Comment: Speci men Type: BLOOD SPECIMENOrdering Facility: [facility] Address: [address] [place] [address] Performed By: #### 1 9123-9, 2776-04, ####[facility] [id number] [place] [id number] [place] Chloride [Moles/Vol] 100 mmol/L Normal 97-105 [facility] Comment on above: Order Comment: Speci men Type: BLOOD SPECIMENOrdering Facility: [facility] Address: [address] [place], [place] [address] Performed By: #### 1 9123-9, 2776-04, ####[facility] [id number] [address] [address] [place] CO2 [Moles/Vol] 35 mmol/L High 22-30 [facility] Comment on above: Order Comment: Speci men Type: BLOOD SPECIMENOrdering Facility: [facility] Address: [address] [place] [id number] Performed By: #### 1 9123-9, 2776-04, ####[facility] [id number] [address] [address] [place] Creatinine [Mass/Vol] 1.46 mg/dL High 0.73-1.22 [facility] Comment on above: Order Comment: Speci men Type: BLOOD SPECIMENOrdering Facility: [facility] Address: [address] [place] [address] Performed By: #### 1 9123-9, 2776-04, ####[facility] [id number] [place] [address] [place] Creatinine and Glomerular filtration rate.predicted panel (S/P/Bld) 60 mL/min/1.73m??? Normal >=60 [facility] Comment on above: Order Comment: Speci men Type: BLOOD SPECIMENOrdering Facility: [facility] Address: [address] [place] [address] Result Comment: Hiral mated Glomerular Filtration Rate [...] actual GFR. Performed By: #### 1 9123-9, 2776-04, ####[facility] [id number] [address] [address] [place] Glucose [Mass/Vol] 128 mg/dL High 74-99 [facility] Comment on above: Order Comment: Speci men Type: BLOOD SPECIMENOrdering Facility: [facility] Address: [address] [place], [place] [address] Result Comment: The [place] [employer] (ADA) provides guidance for cutoff values for fasting glucose and random glucose. The ADA defines fasting as no caloric intake for at least 8 hours. Fasting plasma glucose results between 100 to 125 mg/dL indicate increased risk for diabetes (prediabetes).Fasting plasma glucose results greater than or equal to 126 mg/dL meet the criteria for diagnosis of diabetes. In the absence of unequivocal hyperglycemia, results should be confirmed by repeat testing. In a patient with classic symptoms of hyperglycemia or hyperglycemic crisis, random plasma glucose results greater than or equal to 200 mg/dL meet the criteria for diagnosis of diabetes.Reference: Standards of Medical Care in Diabetes 2016, [place] [employer]. Diabetes Care. 2016.39(Suppl 1). Performed By: #### 1 9123-9, 2777-, 32783-1 ####[facility] [id number] [place] [address] [place] Potassium [Moles/Vol] 3.6 mmol/L Low 3.7-5.1 [facility] Comment on above: Order Comment: Speci men Type: BLOOD SPECIMENOrdering Facility: [facility] Address: [address] [place] [address] Performed By: #### 1 9123-9, 27710-23, 81249-2 ####[facility] [id number] [place] [address] [place] Protein [Mass/Vol] 7.7 g/dL Normal 6.3-8.0 [facility] Comment on above: Order Comment: Speci men Type: BLOOD SPECIMENOrdering Facility: [facility] Address: [address] [place] [address] Performed By: #### 1 9123-9, 2777-, 33797-2 ####[facility] [id number] [place] [address] [place] Sodium [Moles/Vol] 143 mmol/L Normal 136-144 [facility] Comment on above: Order Comment: Speci men Type: BLOOD SPECIMENOrdering Facility: [facility] Address: [address] [place] [address] Performed By: #### 1 9123-9, 2777-1, 35447-5 ####[facility] [id number] [place] [address] [place] Urea nitrogen [Mass/Vol] 9 mg/dL Normal 9-24 [facility] Comment on above: Order Comment: Speci men Type: BLOOD SPECIMENOrdering Facility: [facility] Address: [address] [place] [address] Performed By: #### 1 9123-9, 2777-1, 01478-4 ####[facility] [id number] [place] [address] [place] Albumin [Mass/Vol] 3.2 g/dL Low 3.9-4.9 [facility] Comment on above: Order Comment: Speci men Type: BLOOD SPECIMENOrdering Facility: [facility] Address: [address] [place] [address] Performed By: #### 2 4323-8 ####[facility] [id number] [place] [address] [place] ALP [Catalytic activity/Vol] 37 U/L Low 38-113 [facility] Comment on above: Order Comment: Speci men Type: BLOOD SPECIMENOrdering Facility: [facility] Address: [address] [place] [address] Performed By: #### 2 4323-8 ####[facility] [id number] [place] [address] [place] ALT [Catalytic activity/Vol] 12 U/L Normal 10-54 [facility] Comment on above: Order Comment: Speci men Type: BLOOD SPECIMENOrdering Facility: [facility] Address: [address] [place] [address] Performed By: #### 2 4323-8 ####[facility] [id number] [place] [address] [place] Anion gap [Moles/Vol] 10 mmol/L Normal 9-18 [facility] Comment on above: Order Comment: Speci men Type: BLOOD SPECIMENOrdering Facility: [facility] Address: [address] [place] [address] Performed By: #### 2 4323-8 ####[facility] [id number] [place] [address] [place] AST [Catalytic activity/Vol] 16 U/L Normal 14-40 [facility] Comment on above: Order Comment: Speci men Type: BLOOD SPECIMENOrdering Facility: [facility] Address: [address] [place] [address] Performed By: #### 2 4323-8 ####[facility] [id number] [place] [address] [place] Bilirubin [Mass/Vol] 1.1 mg/dL Normal 0.2-1.3 [facility] Comment on above: Order Comment: Speci men Type: BLOOD SPECIMENOrdering Facility: [facility] Address: [address] [place] [address] Performed By: #### 2 4323-8 ####[facility] [id number] [place] [address] [place] Calcium [Mass/Vol] 8.2 mg/dL Low 8.5-10.2 [facility] Comment on above: Order Comment: Speci men Type: BLOOD SPECIMENOrdering Facility: [facility] Address: [address] [place] [address] Performed By: #### 2 4323-8 ####[facility] [id number] [place] [address] [place] Chloride [Moles/Vol] 106 mmol/L High 97-105 [facility] Comment on above: Order Comment: Speci men Type: BLOOD SPECIMENOrdering Facility: [facility] Address: [address] [place] [address] Performed By: #### 2 4323-8 ####[facility] [id number] [place] [address] [place] CO2 [Moles/Vol] 26 mmol/L Normal 22-30 [facility] Comment on above: Order Comment: Speci men Type: BLOOD SPECIMENOrdering Facility: [facility] Address: [address] [place] [address] Performed By: #### 2 4323-8 ####[facility] [id number] [place] [address] [place] Creatinine [Mass/Vol] 1.14 mg/dL Normal 0.73-1.22 [facility] Comment on above: Order Comment: Speci men Type: BLOOD SPECIMENOrdering Facility: [facility] Address: [address] [place] [address] Performed By: #### 2 4323-8 ####[facility] [id number] [place] [address] [place] Creatinine and Glomerular filtration rate.predicted panel (S/P/Bld) 81 mL/min/1.73m??? Normal >=60 [facility] Comment on above: Order Comment: Speci men Type: BLOOD SPECIMENOrdering Facility: [facility] Address: [address] [place] [address] Result Comment: Hiral mated Glomerular Filtration Rate [...] reflect actual GFR. Performed By: #### 2 4323-8 ####[facility] [id number] [place] [address] [place] Glucose [Mass/Vol] 131 mg/dL High 74-99 [facility] Comment on above: Order Comment: Speci men Type: BLOOD SPECIMENOrdering Facility: [facility] Address: [address] [place] [address] Result Comment: The [place] Diabetes Association (ADA) provides guidance for cutoff values for fasting glucose and random glucose. The ADA defines fasting as no caloric intake for at least 8 hours. Fasting plasma glucose results between 100 to 125 mg/dL indicate increased risk for diabetes (prediabetes).Fasting plasma glucose results greater than or equal to 126 mg/dL meet the criteria for diagnosis of diabetes. In the absence of unequivocal hyperglycemia, results should be confirmed by repeat testing. In a patient with classic symptoms of hyperglycemia or hyperglycemic crisis, random plasma glucose results greater than or equal to 200 mg/dL meet the criteria for diagnosis of diabetes.Reference: Standards of Medical Care in Diabetes 2016, [place] [employer]. Diabetes Care. 2016.39(Suppl 1). Performed By: #### 2 4323-8 ####[facility] [id number] [place] [address] [place] Potassium [Moles/Vol] 4.5 mmol/L Normal 3.7-5.1 [facility] Comment on above: Order Comment: Speci men Type: BLOOD SPECIMENOrdering Facility: [facility] Address: [address] [place] [address] Performed By: #### 2 4323-8 ####[facility] [id number] [place] [address] [place] Protein [Mass/Vol] 6.5 g/dL Normal 6.3-8.0 [facility] Comment on above: Order Comment: Speci men Type: BLOOD SPECIMENOrdering Facility: [facility] Address: [address] [place] [address] Result Comment: Resu lt rechecked. Performed By: #### 2 4323-8 ####[facility] [id number] [place] [address] [place] Sodium [Moles/Vol] 142 mmol/L Normal 136-144 [facility] Comment on above: Order Comment: Speci men Type: BLOOD SPECIMENOrdering Facility: [facility] Address: [address] [place] [address] Performed By: #### 2 4323-8 ####[facility] [id number] [place] [address] [place] Urea nitrogen [Mass/Vol] 8 mg/dL Low 9-24 [facility] Comment on above: Order Comment: Speci men Type: BLOOD SPECIMENOrdering Facility: [facility] Address: [address] [place] [address] Performed By: #### 2 4323-8 ####[facility] [id number] [place] [address] [place] Gas and Carbon monoxide pane l (BldV)on 05-25-2023 Base excess Calc (BldV) [Moles/Vol] 2 mmol/L Normal 0-2 [facility] Comment on above: Order Comment: Speci men Type: VENOUS BLOOD SPECIMENOrdering Facility: [facility] Address: [address] [place] [address] Performed By: #### 2 4344-4 ####[facility] [id number] [place] [address] [place] Body temperature 98.24 [degF] Normal [facility] Comment on above: Order Comment: Speci men Type: VENOUS BLOOD SPECIMENOrdering Facility: [facility] Address: [address] [place] [address] Performed By: #### 2 4344-4 ####[facility] [id number] [place] [address] [place] Calcium.ionized (Bld) [Mass/Vol] 1.17 mmol/L Normal 1.08-1.30 [facility] Comment on above: Order Comment: Speci men Type: VENOUS BLOOD SPECIMENOrdering Facility: [facility] Address: [address] [place] [address] Performed By: #### 2 4344-4 ####[facility] [id number] [place] [address] [place] Calcium.ionized adjusted to pH 7.4 (BldA) [Moles/Vol] 1.11 mmol/L Normal 1.08-1.30 [facility] Comment on above: Order Comment: Speci men Type: VENOUS BLOOD SPECIMENOrdering Facility: [facility] Address: [address] [place] [address] Performed By: #### 2 4344-4 ####[facility] [id number] [place] [address] [place] Carboxyhemoglobin (BldV) [Mass fraction] 2.0 % Normal 0.0-2.0 [facility] Comment on above: Order Comment: Speci men Type: VENOUS BLOOD SPECIMENOrdering Facility: [facility] Address: [address] [place] [address] Result Comment: Carb oxyhemoglobin Reference Range for Smokers: 2.0-8.0% Performed By: #### 2 4344-4 ####[facility] [id number] [place] [address] [place] CO2 (BldV) [Partial pressure] 62 mm[Hg] High 42-55 [facility] Comment on above: Order Comment: Speci men Type: VENOUS BLOOD SPECIMENOrdering Facility: [facility] Address: [address] [place] [address] Performed By: #### 2 4344-4 ####[facility] [id number] [place] [address] [place] CO2 adjusted to patient's actual temperature (BldV) [Partial pressure] 61 mmHg High 42-55 [facility] Comment on above: Order Comment: Speci men Type: VENOUS BLOOD SPECIMENOrdering Facility: [facility] Address: [address] [place] [address] Performed By: #### 2 4344-4 ####[facility] [id number] [place] [address] [place] FIO2 40 % Normal [facility] Comment on above: Order Comment: Speci men Type: VENOUS BLOOD SPECIMENOrdering Facility: [facility] Address: [address] [place] [address] Performed By: #### 2 4344-4 ####[facility] [id number] [place] [address] [place] Glucose [Mass/Vol] 145 mg/dL High 60-105 [facility] Comment on above: Order Comment: Speci men Type: VENOUS BLOOD SPECIMENOrdering Facility: [facility] Address: [address] [place] [address] Performed By: #### 2 4344-4 ####[facility] [id number] [place] [address] [place] HCO3 (Bld) [Moles/Vol] 29 mmol/L High 24-28 [facility] Comment on above: Order Comment: Speci men Type: VENOUS BLOOD SPECIMENOrdering Facility: [facility] Address: [address] [place] [address] Performed By: #### 2 4344-4 ####[facility] [id number] [place] [address] [place] Hematocrit (Bld) [Volume fraction] 32.0 % Low 39.0-51.0 [facility] Comment on above: Order Comment: Speci men Type: VENOUS BLOOD SPECIMENOrdering Facility: [facility] Address: [address] [place] [address] Performed By: #### 2 4344-4 ####[facility] [id number] [place] [address] [place] Hemoglobin (Bld) [Mass/Vol] 10.4 g/dL Low 13.0-17.0 [facility] Comment on above: Order Comment: Speci men Type: VENOUS BLOOD SPECIMENOrdering Facility: [facility] Address: [address] [place] [id number] Performed By: #### 2 4344-4 ####[facility] [id number] [address] [address] [place] Lactate [Moles/Vol] 0.9 mmol/L Normal 0.5-2.2 [facility] Comment on above: Order Comment: Speci men Type: VENOUS BLOOD SPECIMENOrdering Facility: [facility] Address: [address] [place] [address] Performed By: #### 2 4344-4 ####[facility] [id number] [place] [address] [place] Methemoglobin (Bld) [Mass fraction] 1.3 % Normal 0.0-1.5 [facility] Comment on above: Order Comment: Speci men Type: VENOUS BLOOD SPECIMENOrdering Facility: [facility] Address: [address] [place] [address] Performed By: #### 2 4344-4 ####[facility] [id number] [place] [address] [place] O2 THERAPY Positive Normal [facility] Comment on above: Order Comment: Speci men Type: VENOUS BLOOD SPECIMENOrdering Facility: [facility] Address: [address] [place], [place] [address] Performed By: #### 2 4344-4 ####[facility] [id number] [place] [id number] [place] Oxygen (BldV) [Partial pressure] 84 mm[Hg] High 35-45 [facility] Comment on above: Order Comment: Speci men Type: VENOUS BLOOD SPECIMENOrdering Facility: [facility] Address: [address] [place], [place] [address] Performed By: #### 2 4344-4 ####[facility] [id number] [address] [address] [place] Oxygen adjusted to patient's actual temperature (BldV) [Partial pressure] 83 mmHg High 35-45 [facility] Comment on above: Order Comment: Speci men Type: VENOUS BLOOD SPECIMENOrdering Facility: [facility] Address: [address] [place], [place] [address] Performed By: #### 2 4344-4 ####[facility] [id number] [address] [address] [place] Oxygen saturation in Venous blood 96 % High 60-85 [facility] Comment on above: Order Comment: Speci men Type: VENOUS BLOOD SPECIMENOrdering Facility: [facility] Address: [address] [place], [place] [address] Performed By: #### 2 4344-4 ####[facility] [id number] [place] [address] [place] Oxyhemoglobin (BldV) [Mass fraction] 93 % High 60-85 [facility] Comment on above: Order Comment: Speci men Type: VENOUS BLOOD SPECIMENOrdering Facility: [facility] Address: [address] [place], [place] [address] Performed By: #### 2 4344-4 ####[facility] [id number] [place] [id number] [place] pH (BldV) 7.30 [pH] Low 7.32-7.42 [facility] Comment on above: Order Comment: Speci men Type: VENOUS BLOOD SPECIMENOrdering Facility: [facility] Address: [address] [place], [place] [address] Performed By: #### 2 4344-4 ####[facility] [id number] [address] [address] [place] pH adjusted to patient's actual temperature (BldV) 7.30 Low 7.32-7.42 [facility] Comment on above: Order Comment: Speci men Type: VENOUS BLOOD SPECIMENOrdering Facility: [facility] Address: [address] [place] [address] Performed By: #### 2 4344-4 ####[facility] [id number] [address] [address] [place] Potassium [Moles/Vol] 4.2 mmol/L Normal 3.5-5.0 [facility] Comment on above: Order Comment: Speci men Type: VENOUS BLOOD SPECIMENOrdering Facility: [facility] Address: [address] [place], [place] [address] Performed By: #### 2 4344-4 ####[facility] [id number] [place] [address] [place] Sodium [Moles/Vol] 140 mmol/L Normal 136-144 [facility] Comment on above: Order Comment: Speci men Type: VENOUS BLOOD SPECIMENOrdering Facility: [facility] Address: [address] [place], [place] [address] Performed By: #### 2 4344-4 ####[facility] [id number] [place] [address] [place] Base excess Calc (BldV) [Moles/Vol] 2 mmol/L Normal 0-2 [facility] Comment on above: Order Comment: Speci men Type: VENOUS BLOOD SPECIMENOrdering Facility: [facility] Address: [address] [place], [place] [address] Performed By: #### 2 4344-4 ####[facility] [id number] [place] [id number] [place] Body temperature 98.6 [degF] Normal [facility] Comment on above: Order Comment: Speci men Type: VENOUS BLOOD SPECIMENOrdering Facility: [facility] Address: [address] [place], [place] [address] Performed By: #### 2 4344-4 ####[facility] [id number] [place] [address] [place] Calcium.ionized (Bld) [Mass/Vol] 1.18 mmol/L Normal 1.08-1.30 [facility] Comment on above: Order Comment: Speci men Type: VENOUS BLOOD SPECIMENOrdering Facility: [facility] Address: [address] [place] [address] Performed By: #### 2 4344-4 ####[facility] [id number] [place] [address] [place] Calcium.ionized adjusted to pH 7.4 (BldA) [Moles/Vol] 1.12 mmol/L Normal 1.08-1.30 [facility] Comment on above: Order Comment: Speci men Type: VENOUS BLOOD SPECIMENOrdering Facility: [facility] Address: [address] [place] [address] Performed By: #### 2 4344-4 ####[facility] [id number] [place] [address] [place] Carboxyhemoglobin (BldV) [Mass fraction] 2.4 % High 0.0-2.0 [facility] Comment on above: Order Comment: Speci men Type: VENOUS BLOOD SPECIMENOrdering Facility: [facility] Address: [address] [place] [address] Result Comment: Carb oxyhemoglobin Reference Range for Smokers: 2.0-8.0% Performed By: #### 2 4344-4 ####[facility] [id number] [place] [address] [place] CO2 (BldV) [Partial pressure] 60 mm[Hg] High 42-55 [facility] Comment on above: Order Comment: Speci men Type: VENOUS BLOOD SPECIMENOrdering Facility: [facility] Address: [address] [place] [address] Performed By: #### 2 4344-4 ####[facility] [id number] [place] [address] [place] Glucose [Mass/Vol] 144 mg/dL High 60-105 [facility] Comment on above: Order Comment: Speci men Type: VENOUS BLOOD SPECIMENOrdering Facility: [facility] Address: [address] [place] [address] Performed By: #### 2 4344-4 ####[facility] [id number] [place] [address] [place] HCO3 (Bld) [Moles/Vol] 29 mmol/L High 24-28 [facility] Comment on above: Order Comment: Speci men Type: VENOUS BLOOD SPECIMENOrdering Facility: [facility] Address: [address] [place] [address] Performed By: #### 2 4344-4 ####[facility] [id number] [place] [address] [place] Hematocrit (Bld) [Volume fraction] 31.9 % Low 39.0-51.0 [facility] Comment on above: Order Comment: Speci men Type: VENOUS BLOOD SPECIMENOrdering Facility: [facility] Address: [address] [place] [address] Performed By: #### 2 4344-4 ####[facility] [id number] [place] [address] [place] Hemoglobin (Bld) [Mass/Vol] 10.3 g/dL Low 13.0-17.0 [facility] Comment on above: Order Comment: Speci men Type: VENOUS BLOOD SPECIMENOrdering Facility: [facility] Address: [address] [place] [address] Performed By: #### 2 4344-4 ####[facility] [id number] [place] [address] [place] Lactate [Moles/Vol] 1.0 mmol/L Normal 0.5-2.2 [facility] Comment on above: Order Comment: Speci men Type: VENOUS BLOOD SPECIMENOrdering Facility: [facility] Address: [address] [place] [id number] Performed By: #### 2 4344-4 ####[facility] [id number] [address] [address] [place] Methemoglobin (Bld) [Mass fraction] 1.2 % Normal 0.0-1.5 [facility] Comment on above: Order Comment: Speci men Type: VENOUS BLOOD SPECIMENOrdering Facility: [facility] Address: [address] [place] [id number] Performed By: #### 2 4344-4 ####[facility] [id number] [place] [address] [place] O2 THERAPY Positive Normal [facility] Comment on above: Order Comment: Speci men Type: VENOUS BLOOD SPECIMENOrdering Facility: [facility] Address: [address] [place] [address] Performed By: #### 2 4344-4 ####[facility] [id number] [place] [address] [place] Oxygen (BldV) [Partial pressure] 53 mm[Hg] High 35-45 [facility] Comment on above: Order Comment: Speci men Type: VENOUS BLOOD SPECIMENOrdering Facility: [facility] Address: [address] [place] [id number] Performed By: #### 2 4344-4 ####[facility] [id number] [address] [address] [place] Oxygen saturation in Venous blood 84 % Normal 60-85 [facility] Comment on above: Order Comment: Speci men Type: VENOUS BLOOD SPECIMENOrdering Facility: [facility] Address: [address] [place], [place] [address] Performed By: #### 2 4344-4 ####[facility] [id number] [place] [address] [place] Oxyhemoglobin (BldV) [Mass fraction] 81 % Normal 60-85 [facility] Comment on above: Order Comment: Speci men Type: VENOUS BLOOD SPECIMENOrdering Facility: [facility] [facility] Address: [address] [place] [address] Performed By: #### 2 4344-4 ####[facility] [id number] [place] [address] [place] pH (BldV) 7.31 [pH] Low 7.32-7.42 [facility] Comment on above: Order Comment: Speci men Type: VENOUS BLOOD SPECIMENOrdering Facility: [facility] Address: [address] [place] [address] Performed By: #### 2 4344-4 ####[facility] [id number] [place] [address] [place] Potassium [Moles/Vol] 4.5 mmol/L Normal 3.5-5.0 [facility] Comment on above: Order Comment: Speci men Type: VENOUS BLOOD SPECIMENOrdering Facility: [facility] Address: [address] [place] [address] Performed By: #### 2 4344-4 ####[facility] [id number] [place] [address] [place] Sodium [Moles/Vol] 139 mmol/L Normal 136-144 [facility] Comment on above: Order Comment: Speci men Type: VENOUS BLOOD SPECIMENOrdering Facility: [facility] Address: [address] [place] [address] Performed By: #### 2 4344-4 ####[facility] [id number] [place] [address] [place] Base excess Calc (BldV) [Moles/Vol] 1 mmol/L Normal 0-2 [facility] Comment on above: Order Comment: Speci men Type: VENOUS BLOOD SPECIMENOrdering Facility: [facility] Address: [address] [place] [address] Performed By: #### 2 4344-4 ####[facility] [id number] [place] [address] [place] Body temperature 98.6 [degF] Normal [facility] Comment on above: Order Comment: Speci men Type: VENOUS BLOOD SPECIMENOrdering Facility: [facility] Address: [address] [place] [address] Performed By: #### 2 4344-4 ####[facility] [id number] [place] [address] [place] Calcium.ionized (Bld) [Mass/Vol] 1.18 mmol/L Normal 1.08-1.30 [facility] Comment on above: Order Comment: Speci men Type: VENOUS BLOOD SPECIMENOrdering Facility: [facility] Address: [address] [place] [address] Performed By: #### 2 4344-4 ####[facility] [id number] [place] [address] [place] Calcium.ionized adjusted to pH 7.4 (BldA) [Moles/Vol] 1.13 mmol/L Normal 1.08-1.30 [facility] Comment on above: Order Comment: Speci men Type: VENOUS BLOOD SPECIMENOrdering Facility: [facility] Address: [address] [place] [address] Performed By: #### 2 4344-4 ####[facility] [id number] [place] [address] [place] Carboxyhemoglobin (BldV) [Mass fraction] 2.1 % High 0.0-2.0 [facility] Comment on above: Order Comment: Speci men Type: VENOUS BLOOD SPECIMENOrdering Facility: [facility] Address: [address] [place] [address] Result Comment: Carb oxyhemoglobin Reference Range for Smokers: 2.0-8.0% Performed By: #### 2 4344-4 ####[facility] [id number] [place] [address] [place] CO2 (BldV) [Partial pressure] 56 mm[Hg] High 42-55 [facility] Comment on above: Order Comment: Speci men Type: VENOUS BLOOD SPECIMENOrdering Facility: [facility] Address: [address] [place] [address] Performed By: #### 2 4344-4 ####[facility] [id number] [place] [address] [place] Glucose [Mass/Vol] 148 mg/dL High 60-105 [facility] Comment on above: Order Comment: Speci men Type: VENOUS BLOOD SPECIMENOrdering Facility: [facility] Address: [address] [place] [address] Performed By: #### 2 4344-4 ####[facility] [id number] [place] [address] [place] HCO3 (Bld) [Moles/Vol] 27 mmol/L Normal 24-28 [facility] Comment on above: Order Comment: Speci men Type: VENOUS BLOOD SPECIMENOrdering Facility: [facility] Address: [address] [place] [address] Performed By: #### 2 4344-4 ####[facility] [id number] [place] [address] [place] Hematocrit (Bld) [Volume fraction] 32.1 % Low 39.0-51.0 [facility] Comment on above: Order Comment: Speci men Type: VENOUS BLOOD SPECIMENOrdering Facility: [facility] Address: [address] [place] [address] Performed By: #### 2 4344-4 ####[facility] [id number] [place] [address] [place] Hemoglobin (Bld) [Mass/Vol] 10.4 g/dL Low 13.0-17.0 [facility] Comment on above: Order Comment: Speci men Type: VENOUS BLOOD SPECIMENOrdering Facility: [facility] Address: [address] [place] [address] Performed By: #### 2 4344-4 ####[facility] [id number] [place] [address] [place] Lactate [Moles/Vol] 0.9 mmol/L Normal 0.5-2.2 [facility] Comment on above: Order Comment: Speci men Type: VENOUS BLOOD SPECIMENOrdering Facility: [facility] Address: [address] [place] [address] Performed By: #### 2 4344-4 ####[facility] [id number] [place] [address] [place] Methemoglobin (Bld) [Mass fraction] 0.9 % Normal 0.0-1.5 [facility] Comment on above: Order Comment: Speci men Type: VENOUS BLOOD SPECIMENOrdering Facility: [facility] Address: [address] [place] [address] Performed By: #### 2 4344-4 ####[facility] [id number] [place] [address] [place] O2 THERAPY Positive Normal [facility] Comment on above: Order Comment: Speci men Type: VENOUS BLOOD SPECIMENOrdering Facility: [facility] Address: [address] [place] [address] Result Comment: l Performed By: #### 2 4344-4 ####[facility] [id number] [place] [address] [place] Oxygen (BldV) [Partial pressure] 54 mm[Hg] High 35-45 [facility] Comment on above: Order Comment: Speci men Type: VENOUS BLOOD SPECIMENOrdering Facility: [facility] Address: [address] [place] [address] Performed By: #### 2 4344-4 ####[facility] [id number] [address] [address] [place] Oxygen saturation in Venous blood 84 % Normal 60-85 [facility] Comment on above: Order Comment: Speci men Type: VENOUS BLOOD SPECIMENOrdering Facility: [facility] Address: [address] [place] [address] Performed By: #### 2 4344-4 ####[facility] [id number] [place] [address] [place] Oxyhemoglobin (BldV) [Mass fraction] 82 % Normal 60-85 [facility] Comment on above: Order Comment: Speci men Type: VENOUS BLOOD SPECIMENOrdering Facility: [facility] Address: [address] [place], [place] [address] Performed By: #### 2 4344-4 ####[facility] [id number] [place] [address] [place] pH (BldV) 7.31 [pH] Low 7.32-7.42 [facility] Comment on above: Order Comment: Speci men Type: VENOUS BLOOD SPECIMENOrdering Facility: [facility] Address: [address] [place] [address] Performed By: #### 2 4344-4 ####[facility] [id number] [address] [address] [place] Potassium [Moles/Vol] 4.4 mmol/L Normal 3.5-5.0 [facility] Comment on above: Order Comment: Speci men Type: VENOUS BLOOD SPECIMENOrdering Facility: [facility] Address: [address] [place] [address] Performed By: #### 2 4344-4 ####[facility] [id number] [place] [id number] [place] Sodium [Moles/Vol] 139 mmol/L Normal 136-144 [facility] Comment on above: Order Comment: Speci men Type: VENOUS BLOOD SPECIMENOrdering Facility: [facility] Address: [address] [place] [address] Performed By: #### 2 4344-4 ####[facility] [id number] [place] [id number] [place] MEDICAL EMERon 05-25-2023 MEDICAL JENA Normal [facility] MEDICAL JENA Normal [facility] Magnesium SerPl-mCncon 05-25 Magnesium [Mass/Vol] 2.1 mg/dL Normal 1.7-2.3 [facility] Comment on above: Order Comment: Speci men Type: BLOOD SPECIMENOrdering Facility: [facility] Address: [address] [place] [address] Performed By: #### 1 9123-9, 2777-1, 60999-9 ####[facility] [id number] [place] [id number] [place] Magnesium [Mass/Vol] 2.3 mg/dL Normal 1.7-2.3 [facility] Comment on above: Order Comment: Speci men Type: BLOOD SPECIMENOrdering Facility: [facility] Address: [address] [place] [address] Performed By: #### 2 4321-2, 68474-4, 2777-1 ####[facility] [id number] [place] [id number] [place] PT panel Coag (PPP)on 2023 INR Coag (PPP) [Relative time] 1.1 {INR} Normal 0.9-1.3 [facility] Comment on above: Order Comment: Speci men Type: BLOOD SPECIMENOrdering Facility: [facility] Address: [address] [place] [address] Result Comment: Amita min K Antagonist (VKA) Therapeutic Range: INR 2 to 3 (Target INR of 2.5)Note: For patients treated with VKA drugs, such as warfarin, the [employer] 2012 Guideline recommends a therapeutic INR range of 2 to 3 (target INR of 2.5). This recommendation includes high-risk patients with antiphospholipid syndrome with previous arterial or venous thromboembolism, current-generation mechanical or bioprosthetic aortic heart valve replacement.Note: Patients with mechanical aortic valve replacement and additional risk factors for thromboembolic events (atrial fibrillation, previous thromboembolism, LV dysfunction, hypercoagulable conditions) or an older generation mechanical AVR (i.e., ball in-Cage) or any mechanical MVR should have a INR therapeutic range of 2.5 to 3.5 (target INR of 3).Naty GH, et al. Chest 2012, 141:7S-47SNishimura RA, et al. [facility] 2017, 70: 252-289 Performed By: #### 3 4528-0, 94331-3 ####[facility] [id number] [place] [address] [place] PT Coag (PPP) [Time] 11.4 s Normal 9.7-13.0 [facility] Comment on above: Order Comment: Van maier Type: BLOOD SPECIMENOrdering Facility: [facility] Address: [address] [place] [address] Performed By: #### 3 4528-0, 81558-8 ####[facility] [id number] [place] [address] [place] INR Coag (PPP) [Relative time] 1.1 {INR} Normal 0.9-1.3 [facility] Comment on above: Order Comment: Van maier Type: BLOOD SPECIMENOrdering Facility: [facility] Address: [address] [place] [address] Result Comment: Amita min K Antagonist (VKA) Therapeutic Range: INR 2 to 3 (Target INR of 2.5)Note: For patients treated with VKA drugs, such as warfarin, the [employer] 2012 Guideline recommends a therapeutic INR range of 2 to 3 (target INR of 2.5). This recommendation includes high-risk patients with antiphospholipid syndrome with previous arterial or venous thromboembolism, current-generation mechanical or bioprosthetic aortic heart valve replacement.Note: Patients with mechanical aortic valve replacement and additional risk factors for thromboembolic events (atrial fibrillation, previous thromboembolism, LV dysfunction, hypercoagulable conditions) or an older generation mechanical AVR (i.e., ball in-Cage) or any mechanical MVR should have a INR therapeutic range of 2.5 to 3.5 (target INR of 3).Naty GH, et al. Chest 2012, 141:7S-47SNishimura RA, et al. [facility] 2017, 70: 252-289 Performed By: #### 1 4979-9, 49658-9 ####[facility] [id number] [place] [address] [place] PT Coag (PPP) [Time] 11.6 s Normal 9.7-13.0 [facility] Comment on above: Order Comment: Van maier Type: BLOOD SPECIMENOrdering Facility: [facility] Address: [address] [place] [address] Performed By: #### 1 4979-9, 25400-9 ####[facility] [id number] [place] [address] [place] Phosphate SerPl-mCncon 05-25 Phosphate [Mass/Vol] 2.3 mg/dL Low 2.7-4.8 [facility] Comment on above: Order Comment: Van maier Type: BLOOD SPECIMENOrdering Facility: [facility] Address: [address] [place] [address] Performed By: #### 1 9123-9, 2777-1, 50503-5 ####[facility] [id number] [place] [address] [place] Phosphate [Mass/Vol] 3.4 mg/dL Normal 2.7-4.8 [facility] Comment on above: Order Comment: Van maier Type: BLOOD SPECIMENOrdering Facility: [facility] Address: [address] [place] [address] Performed By: #### 2 4321-2, 71075-0, 2777-1 ####[facility] [id number] [place] [address] [place] STAPH AUREUS PCRon S. aureus and MRSA panel JANNA+probe (Nose) Normal Negative [facility] Comment on above: Order Comment: Speci men Type: SWAB OF INTERNAL NOSEOrdering Facility: [facility] Address: [address] [place] [address] Result Comment: Nega tive for Staphylococcus aureus by PCR.Negative for MRSA by PCR Performed By: #### S APCR ####[facility] [id number] [place] [address] [place] THERAPY NTon 05-25-2023 THERAPY NT Normal [facility] THERAPY NT Normal [facility] XR CHEST 1V FRONTAL PORTon 0 05-25-2023 XR CHEST 1V FRONTAL PORT Normal [facility] XR CHEST 1V FRONTAL PORT Normal [facility] aPTT PPPon 05-25-2023 aPTT Coag (PPP) [Time] 28.2 s Normal 23.0-32.4 [facility] Comment on above: Order Comment: Speci men Type: BLOOD SPECIMENOrdering Facility: [facility] Address: [address] [place] [address] Performed By: #### 3 4528-0, 96459-9 ####[facility] [id number] [place] [address] [place] aPTT Coag (PPP) [Time] 28.3 s Normal 23.0-32.4 [facility] Comment on above: Order Comment: Speci men Type: BLOOD SPECIMENOrdering Facility: [facility] Address: [address] [place] [address] Performed By: #### 1 4979-9, 84796-5 ####[facility] [id number] [place] [address] [place] ANES POSTPROC EVALon 024 ANES POSTPROC EVAL Normal [facility] ANES PRE-OPon 05-24-2023 ANES PRE-OP Normal [facility] BRIEF OP NOTon 05-24-2023 BRIEF OP NOT Normal [facility] ECG COMPLETEon 05-24-2023 ECG COMPLETE Normal [facility] NURSING PROGon 05-24-2023 NURSING PROG Normal [facility] NURSING PROG Normal [facility] NURSING PROG Normal [facility] NURSING PROG Normal [facility] OPERATIVE NOon 05-24-2023 OPERATIVE NO Normal [facility] CBC W Auto Differential pane l (Bld)on 05-23-2023 Basophils (Bld) [#/Vol] 10*3/uL Normal <0.11 [facility] Comment on above: Order Comment: Speci men Type: BLOOD SPECIMENOrdering Facility: [facility] Address: [address] [place] [address] Performed By: #### 5 7021-8 ####[facility] [id number] [place] [address] [place] Basophils/100 WBC (Bld) 0.3 % Normal [facility] Comment on above: Order Comment: Speci men Type: BLOOD SPECIMENOrdering Facility: [facility] Address: [address] [place] [address] Performed By: #### 5 7021-8 ####[facility] [id number] [place] [address] [place] Differential cell count method Nom (Bld) Auto Normal [facility] Comment on above: Order Comment: Speci men Type: BLOOD SPECIMENOrdering Facility: [facility] Address: [address] [place] [address] Performed By: #### 5 7021-8 ####[facility] [id number] [place] [address] [place] Eosinophils (Bld) [#/Vol] 0.08 10*3/uL Normal <0.46 [facility] Comment on above: Order Comment: Speci men Type: BLOOD SPECIMENOrdering Facility: [facility] Address: [address] [place] [address] Performed By: #### 5 7021-8 ####[facility] [id number] [place] [address] [place] Eosinophils/100 WBC (Bld) 1.3 % Normal [facility] Comment on above: Order Comment: Speci men Type: BLOOD SPECIMENOrdering Facility: [facility] Address: [address] [place] [address] Performed By: #### 5 7021-8 ####[facility] [id number] [place] [address] [place] Erythrocyte distribution width (RBC) [Ratio] 16.0 % High 11.5-15.0 [facility] Comment on above: Order Comment: Speci men Type: BLOOD SPECIMENOrdering Facility: [facility] Address: [address] [place] [address] Performed By: #### 5 7021-8 ####[facility] [id number] [place] [address] [place] Hematocrit (Bld) [Volume fraction] 38.8 % Low 39.0-51.0 [facility] Comment on above: Order Comment: Speci men Type: BLOOD SPECIMENOrdering Facility: [facility] Address: [address] [place] [address] Performed By: #### 5 7021-8 ####[facility] [id number] [place] [address] [place] Hemoglobin (Bld) [Mass/Vol] 11.5 g/dL Low 13.0-17.0 [facility] Comment on above: Order Comment: Speci men Type: BLOOD SPECIMENOrdering Facility: [facility] Address: [address] [place] [address] Performed By: #### 5 7021-8 ####[facility] [id number] [place] [address] [place] Immature granulocytes (Bld) [#/Vol] 0.03 10*3/uL Normal <0.10 [facility] Comment on above: Order Comment: Speci men Type: BLOOD SPECIMENOrdering Facility: [facility] Address: [address] [place] [address] Performed By: #### 5 7021-8 ####[facility] [id number] [place] [address] [place] Immature granulocytes/100 WBC (Bld) 0.5 % Normal [facility] Comment on above: Order Comment: Speci men Type: BLOOD SPECIMENOrdering Facility: [facility] Address: [address] [place] [address] Performed By: #### 5 7021-8 ####[facility] [id number] [place] [address] [place] Lymphocytes (Bld) [#/Vol] 0.77 10*3/uL Low 1.00-4.00 [facility] Comment on above: Order Comment: Speci men Type: BLOOD SPECIMENOrdering Facility: [facility] Address: [address] [place] [address] Performed By: #### 5 7021-8 ####[facility] [id number] [place] [address] [place] Lymphocytes/100 WBC (Bld) 12.3 % Normal [facility] Comment on above: Order Comment: Speci men Type: BLOOD SPECIMENOrdering Facility: [facility] Address: [address] [place] [address] Performed By: #### 5 7021-8 ####[facility] [id number] [place] [address] [place] MCH (RBC) [Entitic mass] 27.6 pg Normal 26.0-34.0 [facility] Comment on above: Order Comment: Speci men Type: BLOOD SPECIMENOrdering Facility: [facility] Address: [address] [place] [address] Performed By: #### 5 7021-8 ####[facility] [id number] [place] [address] [place] MCHC (RBC) [Mass/Vol] 29.6 g/dL Low 30.5-36.0 [facility] Comment on above: Order Comment: Speci men Type: BLOOD SPECIMENOrdering Facility: [facility] Address: [address] [place] [address] Performed By: #### 5 7021-8 ####[facility] [id number] [place] [address] [place] MCV (RBC) [Entitic vol] 93.3 fL Normal 80.0-100.0 [facility] Comment on above: Order Comment: Speci men Type: BLOOD SPECIMENOrdering Facility: [facility] Address: [address] [place] [address] Performed By: #### 5 7021-8 ####[facility] [id number] [place] [address] [place] Monocytes (Bld) [#/Vol] 0.41 10*3/uL Normal <0.87 [facility] Comment on above: Order Comment: Speci men Type: BLOOD SPECIMENOrdering Facility: [facility] Address: [address] [place] [address] Performed By: #### 5 7021-8 ####[facility] [id number] [place] [address] [place] Monocytes/100 WBC (Bld) 6.5 % Normal [facility] Comment on above: Order Comment: Speci men Type: BLOOD SPECIMENOrdering Facility: [facility] Address: [address] [place] [address] Performed By: #### 5 7021-8 ####[facility] [id number] [place] [address] [place] Neutrophils (Bld) [#/Vol] 4.96 10*3/uL Normal 1.45-7.50 [facility] Comment on above: Order Comment: Speci men Type: BLOOD SPECIMENOrdering Facility: [facility] Address: [address] [place] [address] Performed By: #### 5 7021-8 ####[facility] [id number] [place] [address] [place] Neutrophils/100 WBC (Bld) 79.1 % Normal [facility] Comment on above: Order Comment: Speci men Type: BLOOD SPECIMENOrdering Facility: [facility] Address: [address] [place] [address] Performed By: #### 5 7021-8 ####[facility] [id number] [place] [address] [place] Nucleated RBC (Bld) [#/Vol] 10*3/uL Normal <0.01 [facility] Comment on above: Order Comment: Speci men Type: BLOOD SPECIMENOrdering Facility: [facility] Address: [address] [place] [address] Performed By: #### 5 7021-8 ####[facility] [id number] [place] [address] [place] Nucleated RBC/100 WBC (Bld) [Ratio] 0.0 /100 WBC Normal [facility] Comment on above: Order Comment: Speci men Type: BLOOD SPECIMENOrdering Facility: [facility] Address: [address] [place] [address] Performed By: #### 5 7021-8 ####[facility] [id number] [place] [address] [place] Platelet mean volume (Bld) [Entitic vol] 10.8 fL Normal 9.0-12.7 [facility] Comment on above: Order Comment: Speci men Type: BLOOD SPECIMENOrdering Facility: [facility] Address: [address] [place] [address] Performed By: #### 5 7021-8 ####[facility] [id number] [place] [address] [place] Platelets (Bld) [#/Vol] 222 10*3/uL Normal 150-400 [facility] Comment on above: Order Comment: Speci men Type: BLOOD SPECIMENOrdering Facility: [facility] Address: [address] [place] [address] Performed By: #### 5 7021-8 ####[facility] [id number] [place] [address] [place] RBC (Bld) [#/Vol] 4.16 10*6/uL Low 4.20-6.00 [facility] Comment on above: Order Comment: Speci men Type: BLOOD SPECIMENOrdering Facility: [facility] Address: [address] [place] [address] Performed By: #### 5 7021-8 ####[facility] [id number] [place] [address] [place] WBC (Bld) [#/Vol] 6.27 10*3/uL Normal 3.70-11.00 [facility] Comment on above: Order Comment: Speci men Type: BLOOD SPECIMENOrdering Facility: [facility] Address: [address] [place] [address] Performed By: #### 5 7021-8 ####[facility] [id number] [place] [address] [place] CNPNon 05-23-2023 CNPN Normal [facility] CONFIRM BLOOD TYPEon 024 ABO O Normal [facility] Comment on above: Order Comment: Speci men Type: BLOOD SPECIMENOrdering Facility: [facility] Address: [address] [place] [address] Performed By: #### C ONABO ####[facility] SAULT BLOOD BANKCLIA [id number] [place] [address] [place] Rh Nom (Bld) Positive Normal [facility] Comment on above: Order Comment: Speci men Type: BLOOD SPECIMENOrdering Facility: [facility] Address: [address] [place] [address] Performed By: #### C ONABO ####[facility] SAULT BLOOD BANKCLIA [id number] [place] [address] [place] Comprehensive metabolic 2000 panelon 05-23-2023 Albumin [Mass/Vol] 4.1 g/dL Normal 3.9-4.9 [facility] Comment on above: Order Comment: Speci men Type: BLOOD SPECIMENOrdering Facility: [facility] Address: [address] [place] [address] Performed By: #### 2 4323-8, 2777-1 ####[facility] [id number] [place] [address] [place] ALP [Catalytic activity/Vol] 54 U/L Normal 38-113 [facility] Comment on above: Order Comment: Speci men Type: BLOOD SPECIMENOrdering Facility: [facility] Address: [address] [place] [address] Performed By: #### 2 4323-8, 2777-1 ####[facility] [id number] [place] [address] [place] ALT [Catalytic activity/Vol] 10 U/L Normal 10-54 [facility] Comment on above: Order Comment: Speci men Type: BLOOD SPECIMENOrdering Facility: [facility] Address: [address] [place] [id number] Performed By: #### 2 4323-8, 277- ####[facility] [id number] [place] [address] [place] Anion gap [Moles/Vol] 10 mmol/L Normal 9-18 [facility] Comment on above: Order Comment: Speci men Type: BLOOD SPECIMENOrdering Facility: [facility] Address: [address] [place] [address] Performed By: #### 2 4323-8, 2776-04 ####[facility] [id number] [place] [address] [place] AST [Catalytic activity/Vol] 14 U/L Normal 14-40 [facility] Comment on above: Order Comment: Speci men Type: BLOOD SPECIMENOrdering Facility: [facility] Address: [address] [place] [address] Performed By: #### 2 4323-8, 2776-04 ####[facility] [id number] [place] [address] [place] Bilirubin [Mass/Vol] 2.0 mg/dL High 0.2-1.3 [facility] Comment on above: Order Comment: Speci men Type: BLOOD SPECIMENOrdering Facility: [facility] Address: [address] [place] [address] Performed By: #### 2 4323-8, 27710-23 ####[facility] [id number] [place] [id number] [place] Calcium [Mass/Vol] 9.2 mg/dL Normal 8.5-10.2 [facility] Comment on above: Order Comment: Speci men Type: BLOOD SPECIMENOrdering Facility: [facility] Address: [address] [place] [address] Performed By: #### 2 4323-8, 27710-23 ####[facility] [id number] [place] [address] [place] Chloride [Moles/Vol] 101 mmol/L Normal 97-105 [facility] Comment on above: Order Comment: Speci men Type: BLOOD SPECIMENOrdering Facility: [facility] Address: [address] [place] [address] Performed By: #### 2 4323-8, 2777-1 ####[facility] [id number] [place] [address] [place] CO2 [Moles/Vol] 28 mmol/L Normal 22-30 [facility] Comment on above: Order Comment: Speci men Type: BLOOD SPECIMENOrdering Facility: [facility] Address: [address] [place] [address] Performed By: #### 2 4323-8, 2777-1 ####[facility] [id number] [place] [address] [place] Creatinine [Mass/Vol] 1.34 mg/dL High 0.73-1.22 [facility] Comment on above: Order Comment: Speci men Type: BLOOD SPECIMENOrdering Facility: [facility] Address: [address] [place] [address] Performed By: #### 2 4323-8, 2777-1 ####[facility] [id number] [place] [address] [place] Creatinine and Glomerular filtration rate.predicted panel (S/P/Bld) 67 mL/min/1.73m??? Normal >=60 [facility] Comment on above: Order Comment: Speci men Type: BLOOD SPECIMENOrdering Facility: [facility] Address: [address] [place] [address] Result Comment: Hiral mated Glomerular Filtration Rate [...] actual GFR. Performed By: #### 2 4323-8, 2776-04 ####[facility] [id number] [address] [address] [place] Glucose [Mass/Vol] 113 mg/dL High 74-99 [facility] Comment on above: Order Comment: Van maier Type: BLOOD SPECIMENOrdering Facility: [facility] Address: [address] [place] [address] Result Comment: The [place] Diabetes [employer] (ADA) provides guidance for cutoff values for fasting glucose and random glucose. The ADA defines fasting as no caloric intake for at least 8 hours. Fasting plasma glucose results between 100 to 125 mg/dL indicate increased risk for diabetes (prediabetes).Fasting plasma glucose results greater than or equal to 126 mg/dL meet the criteria for diagnosis of diabetes. In the absence of unequivocal hyperglycemia, results should be confirmed by repeat testing. In a patient with classic symptoms of hyperglycemia or hyperglycemic crisis, random plasma glucose results greater than or equal to 200 mg/dL meet the criteria for diagnosis of diabetes.Reference: Standards of Medical Care in Diabetes 2016, [place] [employer] Association. Diabetes Care. 2016.39(Suppl 1). Performed By: #### 2 4323-8, 2776-04 ####[facility] [id number] [place] [id number] [place] Potassium [Moles/Vol] 4.1 mmol/L Normal 3.7-5.1 [facility] Comment on above: Order Comment: Van maier Type: BLOOD SPECIMENOrdering Facility: [facility] Address: [address] [place] [address] Performed By: #### 2 4323-8, 2776-04 ####[facility] [id number] [facility] [address] [address] [place] Protein [Mass/Vol] 8.5 g/dL High 6.3-8.0 [facility] Comment on above: Order Comment: Speci men Type: BLOOD SPECIMENOrdering Facility: [facility] Address: [address] [place] [address] Performed By: #### 2 4323-8, 27710-23 ####[facility] [id number] [address] [address] [place] Sodium [Moles/Vol] 139 mmol/L Normal 136-144 [facility] Comment on above: Order Comment: Speci men Type: BLOOD SPECIMENOrdering Facility: [facility] Address: [address] [place], [place] [address] Performed By: #### 2 4323-8, 2776-04 ####[facility] [id number] [place] [address] [place] Urea nitrogen [Mass/Vol] 12 mg/dL Normal 9-24 [facility] Comment on above: Order Comment: Speci men Type: BLOOD SPECIMENOrdering Facility: [facility] Address: [address] [place], [place] [address] Performed By: #### 2 4323-8, 2776-04 ####[facility] [id number] [place] [address] [place] ECG COMPLETEon 05-23-2023 ECG COMPLETE Normal [facility] ECG COMPLETE Normal [facility] HISTORY PHYSICALon HISTORY PHYSICAL Normal [facility] HISTORY PHYSICAL Normal [facility] Phosphate SerPl-mCncon 05-23 Phosphate [Mass/Vol] 2.4 mg/dL Low 2.7-4.8 [facility] Comment on above: Order Comment: Speci men Type: BLOOD SPECIMENOrdering Facility: [facility] Address: [address] [id number] Performed By: #### 2 4323-8, 27710-23 ####[facility] [id number] [place] [id number] [place] Prot/Creat Uron 05-23-2023 Protein/Creatinine (U) [Mass ratio] 0.13 mg/mg Normal <0.15 [facility] Comment on above: Order Comment: Speci men Type: URINE SPECIMENOrdering Facility: [facility] Address: [address] [place] [address] Result Comment: Adul t Proteinuria Categories:<0.15 mg/mg is considered normal to mildly increased0.15 - 0.50 mg/mg is considered moderately increased>0.50 mg/mg is considered severely increasedKDIGO. (2013). KDIGO 2012 Clinical Practice Guideline for the Evaluation and Management of Chronic Kidney Disease. Official Journal of the International Society of Nephrology, 3(1), 1-150. Performed By: #### 2 890-2 ####[facility] [id number] [address] [place] Protein/Creatinine (U) [Mass ratio]on 05-23-2023 Creatinine (U) [Mass/Vol] 214.9 mg/dL Normal 20.0-300.0 [facility] Comment on above: Order Comment: Speci men Type: URINE SPECIMENOrdering Facility: [facility] Address: [address] [place] [address] Performed By: #### 2 890-2 ####[facility] [id number] [address] [place] Protein (U) [Mass/Vol] 27 mg/dL High 0-20 [facility] Comment on above: Order Comment: Speci men Type: URINE SPECIMENOrdering Facility: [facility] Address: [address] [place] [address] Performed By: #### 2 890-2 ####[facility] [id number] [address] [place] TYPE AND SCREEN,30 DAYon ABO O Normal [facility] Comment on above: Order Comment: Speci men Type: BLOOD SPECIMENOrdering Facility: [facility] Address: [address] [place] [address] Performed By: #### T SCR30 ####CC MAIN BLOOD BANKCLIA [id number] [place] [address] [place] HISTORICAL AB SCR STATUS Negative Normal [facility] Comment on above: Order Comment: Speci men Type: BLOOD SPECIMENOrdering Facility: [facility] Address: [address] [place] [address] Performed By: #### T SCR30 ####[facility] SAULT BLOOD BANKIA [id number] [place] [address] [place] Rh Nom (Bld) Positive Normal [facility] Comment on above: Order Comment: Speci men Type: BLOOD SPECIMENOrdering Facility: [facility] Address: [address] [place] [address] Performed By: #### T SCR30 ####[facility] SAULT BLOOD BANKIA [id number] [place] [address] [place] Urinalysis complete panel (U )on 05-23-2023 Bacteria LM.HPF (Urine sed) [#/Area] Negative Normal Negative [facility] Comment on above: Order Comment: Speci men Type: URINE SPECIMENOrdering Facility: [facility] Address: [address] [place] [address] Performed By: #### 2 4356-8 ####[facility] [id number] [place] [address] [place] Bilirubin Ql (U) Negative Normal Negative [facility] Comment on above: Order Comment: Speci men Type: URINE SPECIMENOrdering Facility: [facility] Address: [address] [place] [address] Performed By: #### 2 4356-8 ####[facility] [id number] [place] [address] [place] Clarity (Unsp spec) Clear Normal Clear [facility] Comment on above: Order Comment: Speci men Type: URINE SPECIMENOrdering Facility: [facility] Address: [address] [place] [address] Performed By: #### 2 4356-8 ####[facility] [id number] [place] [address] [place] [facility] Color (U) Yellow Normal Yellow [facility] Comment on above: Order Comment: Speci men Type: URINE SPECIMENOrdering Facility: [facility] Address: [address] [place] [address] Performed By: #### 2 4356-8 ####[facility] [id number] [place] [address] [place] Epithelial cells LM.HPF (Urine sed) [#/Area] None Seen Normal [facility] Comment on above: Order Comment: Speci men Type: URINE SPECIMENOrdering Facility: [facility] Address: [address] [place] [address] Performed By: #### 2 4356-8 ####[facility] [id number] [address] STATES OF [facility] Glucose Test strip (U) [Mass/Vol] Negative Normal Negative [facility] Comment on above: Order Comment: Speci men Type: URINE SPECIMENOrdering Facility: [facility] Address: [address] [place] [address] Performed By: #### 2 4356-8 ####[facility] [id number] [place] [address] [place] Hemoglobin Ql (U) Negative Normal Negative [facility] Comment on above: Order Comment: Speci men Type: URINE SPECIMENOrdering Facility: [facility] Address: [address] [place] [address] Performed By: #### 2 4356-8 ####[facility] [id number] [place] [address] [place] Hyaline casts (Urine sed) [#/Area] 0 /[LPF] Normal 0 /LPF [facility] Comment on above: Order Comment: Speci men Type: URINE SPECIMENOrdering Facility: [facility] Address: [address] [place] [address] Performed By: #### 2 4356-8 ####[facility] [id number] [place] [address] [place] Ketones Ql (U) Trace Abnormal Negative [facility] Comment on above: Order Comment: Speci men Type: URINE SPECIMENOrdering Facility: [facility] Address: [address] [place] [address] Performed By: #### 2 4356-8 ####[facility] [id number] [place] [address] [place] Leukocyte esterase Test strip Ql (U) Negative Normal Negative [facility] Comment on above: Order Comment: Speci men Type: URINE SPECIMENOrdering Facility: [facility] Address: [address] [place] [address] Performed By: #### 2 4356-8 ####[facility] [id number] [place] [address] [place] Nitrite Ql (U) Negative Normal Negative [facility] Comment on above: Order Comment: Speci men Type: URINE SPECIMENOrdering Facility: [facility] Address: [address] [place] [address] Performed By: #### 2 4356-8 ####[facility] [id number] [place] [address] [place] pH (U) 6.0 [pH] Normal <8.5 [facility] Comment on above: Order Comment: Speci men Type: URINE SPECIMENOrdering Facility: [facility] Address: [address] [place] [address] Performed By: #### 2 4356-8 ####[facility] [id number] [place] [address] [place] Protein (U) [Mass/Vol] Trace Abnormal Negative [facility] Comment on above: Order Comment: Speci men Type: URINE SPECIMENOrdering Facility: [facility] Address: [address] [place] [address] Performed By: #### 2 4356-8 ####[facility] [id number] [place] [address] [place] RBC LM.HPF (Urine sed) [#/Area] 0-2 /HPF Normal 0-2 /HPF [facility] Comment on above: Order Comment: Speci men Type: URINE SPECIMENOrdering Facility: [facility] Address: [address] [place] [address] Performed By: #### 2 4356-8 ####[facility] [id number] [place] [address] [place] Specific gravity (U) [Rel density] 1.021 Normal 1.005-1.030 [facility] Comment on above: Order Comment: Speci men Type: URINE SPECIMENOrdering Facility: [facility] Address: [address] [place] [address] Performed By: #### 2 4356-8 ####[facility] [id number] [place] [address] [place] Urobilinogen Ql (U) 1.0 EU/dL Normal 0.2-1.0 EU/dL [facility] Comment on above: Order Comment: Speci men Type: URINE SPECIMENOrdering Facility: [facility] Address: [address] [place] [address] Performed By: #### 2 4356-8 ####[facility] [id number] [place] [address] [place] WBC LM.HPF (Urine sed) [#/Area] 0-5 /HPF Normal 0-5 /HPF [facility] Comment on above: Order Comment: Speci men Type: URINE SPECIMENOrdering Facility: [facility] Address: [address] [place] [address] Performed By: #### 2 4356-8 ####[facility] [id number] [place] [address] [place] CNPNon 05-20-2023 CNPN Normal [facility] CNPNon 05-18-2023 CNPN Normal [facility] CNPNon 05-17-2023 CNPN Normal [facility] CNPNon 05-16-2023 CNPN Normal [facility] CNPNon 05-13-2023 CNPN Normal [facility] CNPNon 05-10-2023 CNPN Normal [facility] CNPNon 05-03-2023 CNPN Normal [facility] CNCOon 04-26-2023 CNCO Letter Text Normal [facility] CNPNon 04-21-2023 CNPN Normal [facility] 25(OH)D3 SerPl-mCncon 2022 25-hydroxyvitamin D3 [Mass/Vol] 18.2 ng/mL Low 31.0-80.0 [facility] Comment on above: Order Comment: Speci men Type: BLOOD SPECIMENOrdering Facility: [facility] Address: [address] [place] [address] Result Comment: Clas sification of 25 [place] Vitamin D status:Deficiency/Insufficiency: < or = 30 ng/ml.Sufficiency/Optimal Levels: 31-80 ng/mLToxicity: > 100 ng/mL.Test performed by chemiluminescent immunoassay. Performed By: #### 1 989-3 ####[facility] [id number] [place] [address] [place] ALBUMIN/CREAT RATIO RND URon 04-19-2023 Albumin DL <= 20 mg/L (U) [Mass/Vol] mg/dL Normal [facility] Comment on above: Order Comment: Speci men Type: URINE SPECIMENOrdering Facility: [facility] Address: [address] [place] [address] Performed By: #### U ACR ####[facility] [id number] [place] [address] [place] Albumin/Creatinine (U) [Mass ratio] <8 Normal <30 [facility] Comment on above: Order Comment: Speci men Type: URINE SPECIMENOrdering Facility: [facility] Address: [address] [place] [address] Result Comment: Adul t Male and Female Nephrotic Criteria:<30 mg/g is considered normal to mildly guvbtfepr51-734 mg/g is considered moderately increased>300 mg/g is considered severely increasedKDIGO. (2013). KDIGO 2012 Clinical Practice Guideline for the Evaluation and Management of Chronic Kidney Disease. Official Journal of the International Society of Nephrology, 3(1), 1-150. Performed By: #### U ACR ####[facility] [id number] [place] [address] [place] Creatinine (U) [Mass/Vol] 156.6 mg/dL Normal 20.0-300.0 [facility] Comment on above: Order Comment: Speci men Type: URINE SPECIMENOrdering Facility: [facility] Address: [address] [place] [address] Performed By: #### U ACR ####[facility] [id number] [place] [address] [place] CBC panel Auto (Bld)on 04-19 Erythrocyte distribution width (RBC) [Ratio] 16.0 % High 11.5-15.0 [facility] Comment on above: Order Comment: Speci men Type: BLOOD SPECIMENOrdering Facility: [facility] Address: [address] [place] [address] Performed By: #### 5 8410-2 ####[facility] LABCLIA [id number] [place] [address] [place] Hematocrit (Bld) [Volume fraction] 36.9 % Low 39.0-51.0 [facility] Comment on above: Order Comment: Speci men Type: BLOOD SPECIMENOrdering Facility: [facility] Address: [address] [place] [address] Performed By: #### 5 8410-2 ####[facility] LABCLIA [id number] [address] STATES OF [facility] Hemoglobin (Bld) [Mass/Vol] 11.1 g/dL Low 13.0-17.0 [facility] Comment on above: Order Comment: Speci men Type: BLOOD SPECIMENOrdering Facility: [facility] Address: [address] [place] [address] Performed By: #### 5 8410-2 ####[facility] LABCLIA [id number] [address] [place] MCH (RBC) [Entitic mass] 28.9 pg Normal 26.0-34.0 [facility] Comment on above: Order Comment: Speci men Type: BLOOD SPECIMENOrdering Facility: [facility] Address: [address] [place] [address] Performed By: #### 5 8410-2 ####[facility] LABCLIA [id number] [address] [place] MCHC (RBC) [Mass/Vol] 30.1 g/dL Low 30.5-36.0 [facility] Comment on above: Order Comment: Speci men Type: BLOOD SPECIMENOrdering Facility: [facility] Address: [address] [place] [address] Performed By: #### 5 8410-2 ####[facility]FWendyFROIL[facility] LABCLIA [id number] [address] [place] MCV (RBC) [Entitic vol] 96.1 fL Normal 80.0-100.0 [facility] Comment on above: Order Comment: Speci men Type: BLOOD SPECIMENOrdering Facility: [facility] Address: [address] [place] [address] Performed By: #### 5 8410-2 ####[facility] LABCLIA [id number] [place] [address] [place] Nucleated RBC (Bld) [#/Vol] 0.02 10*3/uL High <0.01 [facility] Comment on above: Order Comment: Speci men Type: BLOOD SPECIMENOrdering Facility: [facility] Address: [address] [place] [address] Performed By: #### 5 8410-2 ####[facility] LABIA [id number] [address] [place] Platelet mean volume (Bld) [Entitic vol] 10.4 fL Normal 9.0-12.7 [facility] Comment on above: Order Comment: Speci men Type: BLOOD SPECIMENOrdering Facility: [facility] Address: [address] [place] [address] Performed By: #### 5 8410-2 ####[facility] LABIA [id number] [address] [place] Platelets (Bld) [#/Vol] 173 10*3/uL Normal 150-400 [facility] Comment on above: Order Comment: Speci men Type: BLOOD SPECIMENOrdering Facility: [facility] Address: [address] [place] [address] Performed By: #### 5 8410-2 ####[facility]ND[facility] LABIA [id number] [place] [address] [place] RBC (Bld) [#/Vol] 3.84 10*6/uL Low 4.20-6.00 [facility] Comment on above: Order Comment: Speci men Type: BLOOD SPECIMENOrdering Facility: [facility] Address: [address] [place] [address] Performed By: #### 5 8410-2 ####[place] [facility] LABCLIA [id number] [place] [address] [place] WBC (Bld) [#/Vol] 6.69 10*3/uL Normal 3.70-11.00 [facility] Comment on above: Order Comment: Speci men Type: BLOOD SPECIMENOrdering Facility: [facility] Address: [address] [place] [address] Performed By: #### 5 8410-2 ####[facility] LABCLIA [id number] [place] [address] [place] CYSTATIN Con 04-19-2023 Cystatin C [Mass/Vol] 2.24 mg/L High 0.61-0.95 [facility] Comment on above: Order Comment: Speci men Type: BLOOD SPECIMENOrdering Facility: [facility] Address: [address] [place] [address] Performed By: #### 2 731-8, CYSTC ####[facility] [id number] [place] [address] [place] CYSTATIN C EGFR 28 mL/min/1.73m??? Low >=[address] [facility] Comment on above: Order Comment: Speci men Type: BLOOD SPECIMENOrdering Facility: [facility] Address: [address] [place] [address] Result Comment: Hiral mated Glomerular Filtration Rate [...] reflect actual GFR. Performed By: #### 2 731-8, CYSTC ####[facility]CLIA [id number] [place] [address] [place] Magnesium SerPl-mCncon 04-19 Magnesium [Mass/Vol] 2.3 mg/dL Normal 1.7-2.3 [facility] Comment on above: Order Comment: Speci men Type: BLOOD SPECIMENOrdering Facility: [facility] Address: [address] [place] [address] Performed By: #### 2 4362-6, 95038-1 ####[facility]CLIA [id number] [place] [address] [place] PTH-Intact SerPl-mCncon 12- Parathyrin.intact [Mass/Vol] 133 pg/mL High 15-65 [facility] Comment on above: Order Comment: Speci men Type: BLOOD SPECIMENOrdering Facility: [facility] Address: [address] [place] [address] Performed By: #### 2 731-8, CYSTC ####[facility] LABCLIA [id number] [place] [address] [place] Prot/Creat Uron 04-19-2023 Protein/Creatinine (U) [Mass ratio] 0.10 mg/mg Normal <0.15 [facility] Comment on above: Order Comment: Speci men Type: URINE SPECIMENOrdering Facility: [facility] Address: [address] [place] [address] Result Comment: Adul t Proteinuria Categories:<0.15 mg/mg is considered normal to mildly increased0.15 - 0.50 mg/mg is considered moderately increased>0.50 mg/mg is considered severely increasedKDIGO. (2013). KDIGO 2012 Clinical Practice Guideline for the Evaluation and Management of Chronic Kidney Disease. Official Journal of the International Society of Nephrology, 3(1), 1-150. Performed By: #### 2 890-2 ####[facility]CL[facility] [id number] [place] [address] [place] Protein/Creatinine (U) [Mass ratio]on 04-19-2023 Creatinine (U) [Mass/Vol] 153.3 mg/dL Normal 20.0-300.0 [facility] Comment on above: Order Comment: Speci men Type: URINE SPECIMENOrdering Facility: [facility] Address: [address] [place] [address] Performed By: #### 2 890-2 ####[facility]CLIA [id number] [place] [address] [place] Protein (U) [Mass/Vol] 15 mg/dL Normal 0-20 [facility] Comment on above: Order Comment: Speci men Type: URINE SPECIMENOrdering Facility: [facility] Address: [address] [place] [address] Performed By: #### 2 890-2 ####[facility]CLIA [id number] [place] [address] [place] Renal function 2000 panelon 04-19-2023 Albumin [Mass/Vol] 3.8 g/dL Low 3.9-4.9 [facility] Comment on above: Order Comment: Speci men Type: BLOOD SPECIMENOrdering Facility: [facility] Address: [address] [place] [address] Performed By: #### 2 4362-6, ####[facility]CLIA [id number] [place] [address] [place] Anion gap [Moles/Vol] 11 mmol/L Normal 9-18 [facility] Comment on above: Order Comment: Speci men Type: BLOOD SPECIMENOrdering Facility: [facility] Address: [address] [place] [address] Performed By: #### 2 4362-6, ####[facility]CLIA [id number] [place] [address] [place] Calcium [Mass/Vol] 9.1 mg/dL Normal 8.5-10.2 [facility] Comment on above: Order Comment: Speci men Type: BLOOD SPECIMENOrdering Facility: [facility] Address: [address] [place] [address] Performed By: #### 2 4362-6, ####[facility]CLIA [id number] [place] [id number] [place] Chloride [Moles/Vol] 99 mmol/L Normal 97-105 [facility] Comment on above: Order Comment: Speci men Type: BLOOD SPECIMENOrdering Facility: [facility] Address: [address] [place] [address] Performed By: #### 2 4362-6, ####[facility] LABIA [id number] [address] [address] [place] CO2 [Moles/Vol] 34 mmol/L High 22-30 [facility] Comment on above: Order Comment: Speci men Type: BLOOD SPECIMENOrdering Facility: [facility] Address: [address] [place] [address] Performed By: #### 2 436-6, ####[facility] LABIA [id number] [place] [address] [place] Creatinine [Mass/Vol] 1.68 mg/dL High 0.73-1.22 [facility] Comment on above: Order Comment: Speci men Type: BLOOD SPECIMENOrdering Facility: [facility] Address: [address] [place] [address] Performed By: #### 2 4362-6, ####[facility] LAB[facility] [id number] [place] [address] [place] Creatinine and Glomerular filtration rate.predicted panel (S/P/Bld) 51 mL/min/1.73m??? Low >=60 [facility] Comment on above: Order Comment: Speci men Type: BLOOD SPECIMENOrdering Facility: [facility] Address: [address] [place] [address] Result Comment: Hiral mated Glomerular Filtration Rate [...] reflect actual GFR. Performed By: #### 2 4362 ####[facility]CLIA [id number] [address] [address] [place] Glucose [Mass/Vol] 107 mg/dL High 74-99 [facility] Comment on above: Order Comment: Speci men Type: BLOOD SPECIMENOrdering Facility: [facility] Address: [address] [place] [address] Result Comment: The [place] Diabetes Association (ADA) provides guidance for cutoff values for fasting glucose and random glucose. The ADA defines fasting as no caloric intake for at least 8 hours. Fasting plasma glucose results between 100 to 125 mg/dL indicate increased risk for diabetes (prediabetes).Fasting plasma glucose results greater than or equal to 126 mg/dL meet the criteria for diagnosis of diabetes. In the absence of unequivocal hyperglycemia, results should be confirmed by repeat testing. In a patient with classic symptoms of hyperglycemia or hyperglycemic crisis, random plasma glucose results greater than or equal to 200 mg/dL meet the criteria for diagnosis of diabetes.Reference: Standards of Medical Care in Diabetes 2016, [place] Diabetes Association. Diabetes Care. 2016.39(Suppl 1). Performed By: #### 2 436-, ####[facility] [id number] [place] [address] [place] Phosphate [Mass/Vol] 3.4 mg/dL Normal 2.7-4.8 [facility] Comment on above: Order Comment: Speci men Type: BLOOD SPECIMENOrdering Facility: [facility] Address: [address] [place] [address] Performed By: #### 2 43605-31, ####[facility] [id number] [place] [id number] [place] Potassium [Moles/Vol] 3.6 mmol/L Low 3.7-5.1 [facility] Comment on above: Order Comment: Speci men Type: BLOOD SPECIMENOrdering Facility: [facility] Address: [address] [place] [address] Performed By: #### 2 43605-31, ####[facility]CLIA [id number] [place] [address] [place] Sodium [Moles/Vol] 144 mmol/L Normal 136-144 [facility] Comment on above: Order Comment: Speci men Type: BLOOD SPECIMENOrdering Facility: [facility] Address: [address] [place] [address] Performed By: #### 2 4362-6, ####[facility]CLIA [id number] [place] [address] [place] Urea nitrogen [Mass/Vol] 19 mg/dL Normal 9-24 [facility] Comment on above: Order Comment: Speci men Type: BLOOD SPECIMENOrdering Facility: [facility] Address: [address] [place] [address] Performed By: #### 2 43626, ####[facility] [id number] [place] [address] [place] US KIDNEY/BLADDERon 04-19-20 US KIDNEY/BLADDER Normal [facility] Urinalysis complete panel (U )on 04-19-2023 Bacteria LM.HPF (Urine sed) [#/Area] Negative Normal Negative [facility] Comment on above: Order Comment: Speci men Type: URINE SPECIMENOrdering Facility: [facility] Address: [address] [place] [address] Performed By: #### 2 4356-8 ####[facility]CLIA [id number] [place] [address] [place] Bilirubin Ql (U) Negative Normal Negative [facility] Comment on above: Order Comment: Speci men Type: URINE SPECIMENOrdering Facility: [facility] Address: [address] [place] [address] Performed By: #### 2 4356-8 ####[facility] LABIA [id number] [address] [place] Clarity (Unsp spec) Clear Normal Clear Javi [facility] Comment on above: Order Comment: Speci men Type: URINE SPECIMENOrdering Facility: [facility] Address: [address] [place] [address] Performed By: #### 2 4356-8 ####[facility]CLIA [id number] [place] [address] [place] Color (U) Yellow Normal Yellow [facility] Comment on above: Order Comment: Speci men Type: URINE SPECIMENOrdering Facility: [facility] Address: [address] [place] [address] Performed By: #### 2 4356-8 ####[facility]CL[facility] [id number] [place] [address] [place] Epithelial cells LM.HPF (Urine sed) [#/Area] None Seen Normal [facility] Comment on above: Order Comment: Speci men Type: URINE SPECIMENOrdering Facility: [facility] Address: [address] [place] [address] Performed By: #### 2 4356-8 ####[facility]CL[facility] [id number] [place] [address] [place] Glucose Test strip (U) [Mass/Vol] Negative Normal Negative [facility] Comment on above: Order Comment: Speci men Type: URINE SPECIMENOrdering Facility: [facility] Address: [address] [place] [address] Performed By: #### 2 4356-8 ####[facility]CL[facility] [id number] [place] [address] [place] Hemoglobin Ql (U) Negative Normal Negative [facility] Comment on above: Order Comment: Speci men Type: URINE SPECIMENOrdering Facility: [facility] Address: [address] [place] [address] Performed By: #### 2 4356-8 ####[facility]CL[facility] [id number] [place] [address] [place] Hyaline casts (Urine sed) [#/Area] 1-3 /LPF Abnormal 0 /LPF [facility] Comment on above: Order Comment: Speci men Type: URINE SPECIMENOrdering Facility: [facility] Address: [address] [place] [address] Performed By: #### 2 4356-8 ####[facility]CLIA [id number] [place] [address] [place] Ketones Ql (U) Negative Normal Negative [facility] Comment on above: Order Comment: Speci men Type: URINE SPECIMENOrdering Facility: [facility] Address: [address] [place] [address] Performed By: #### 2 4356-8 ####[facility]CLIA [id number] [place] [address] [place] Leukocyte esterase Test strip Ql (U) Negative Normal Negative [facility] Comment on above: Order Comment: Speci men Type: URINE SPECIMENOrdering Facility: [facility] Address: [address] [place] [address] Performed By: #### 2 4356-8 ####[facility]CL[facility] [id number] [place] [address] [place] Nitrite Ql (U) Negative Normal Negative [facility] Comment on above: Order Comment: Speci men Type: URINE SPECIMENOrdering Facility: [facility] Address: [address] [place] [address] Performed By: #### 2 4356-8 ####[facility]CL[facility] [id number] [place] [address] [place] pH (U) 7.0 [pH] Normal <8.5 [facility] Comment on above: Order Comment: Speci men Type: URINE SPECIMENOrdering Facility: [facility] Address: [address] [place] [address] Performed By: #### 2 4356-8 ####[facility] [id number] [place] [address] [place] Protein (U) [Mass/Vol] Trace Abnormal Negative [facility] Comment on above: Order Comment: Speci men Type: URINE SPECIMENOrdering Facility: [facility] Address: [address] [place] [address] Performed By: #### 2 4356-8 ####[facility] [id number] [place] [address] [place] RBC LM.HPF (Urine sed) [#/Area] 0-2 /HPF Normal 0-2 /HPF [facility] Comment on above: Order Comment: Speci men Type: URINE SPECIMENOrdering Facility: [facility] Address: [address] [place] [address] Performed By: #### 2 4356-8 ####[facility] [id number] [place] [address] [place] Specific gravity (U) [Rel density] 1.018 Normal 1.005-1.030 [facility] Comment on above: Order Comment: Speci men Type: URINE SPECIMENOrdering Facility: [facility] Address: [address] [place] [address] Performed By: #### 2 4356-8 ####[facility] [id number] [place] [address] [place] Urobilinogen Ql (U) 2.0 EU/dL Abnormal 0.2-1.0 EU/dL [facility] Comment on above: Order Comment: Speci men Type: URINE SPECIMENOrdering Facility: [facility] Address: [address] [place] [address] Performed By: #### 2 4356-8 ####[facility] [id number] [place] [address] [place] WBC LM.HPF (Urine sed) [#/Area] 0-5 /HPF Normal 0-5 /HPF [facility] Comment on above: Order Comment: Speci men Type: URINE SPECIMENOrdering Facility: [facility] Address: [address] [facility] [place] [address] Performed By: #### 2 4356-8 ####[facility] [id number] [id number] [id number] [place] CNOVon 04-13-2023 CNOV Normal [facility] CNPNon 12-08-2022 CNPN Normal [facility] Vital Signs Date Time Vital Sign Value Performing Clinician Faci lity 08-18-2023 13:46-0400 Body height 180.[address] Work Phone: [facility] 08-18-2023 13:46-0400 Body mass index (BMI) [Ratio] 72.53 kg/m2 Deep Lovell RD Work Phone: [facility] 08-18-2023 13:46-0400 Body weight 235.[address] Work Phone: [facility] Comment on above: verbal per patient 07-13-2023 11:05-0400 Body weight 238.14 kg Dayday Jeong MD Work Phone: [facility] 07-13-2023 11:05-0400 Diastolic blood pressure 78 mm[Hg] Dayday Jeong MD Work Phone: [facility] 07-13-2023 11:05-0400 Heart rate 72 /min Dayday Jeong MD Work Phone: [facility] 07-13-2023 11:05-0400 Systolic blood pressure 126 mm[Hg] Dayday Jeong MD Work Phone: [facility] 06-21-2023 15:02-0500 Body height 180.[address] Work Phone: [facility] 06-21-2023 15:02-0500 Body weight 254.[address] Work Phone: [facility] 06-10-2023 12:53-0500 Body height 182.[address] Work Phone: [facility] 04-13-2023 10:33-0500 Body weight 247.66 kg Dayday Jeong MD Work Phone: [facility] 04-13-2023 10:33-0500 Diastolic blood pressure 65 mm[Hg] Dayday Jeong MD Work Phone: [facility] 04-13-2023 10:33-0500 Heart rate 84 /min Dayday Jeong MD Work Phone: [facility] 04-13-2023 10:33-0500 Systolic blood pressure 109 mm[Hg] Dayday Jeong MD Work Phone: [facility] 04-05-2023 13:00-0500 Body height 180.[address] Work Phone: [facility] 03-14-2023 10:06-0500 Body height 180.[address] Work Phone: [facility] 02-01-2023 14:32-0400 Body height 180.[address] Work Phone: [facility] 01-03-2023 08:43-0400 Body height 180.[address] Work Phone: [facility] 01-03-2023 08:43-0400 Body weight 247.[address] Work Phone: [facility] 12-01-2022 13:23-0400 Body weight 253.[address] Work Phone: [facility] 11-26-2022 10:07-0400 Body weight 254.01 kg Jo Henson APRN.CNP Work Phone: [facility] 11-03-2022 10:51-0400 Body weight 257.[address] Work Phone: [facility] 10-25-2022 14:30-0400 Body height 180.3 cm Michael Enciso MD Work Phone: [facility] 10-25-2022 14:30-0400 Body weight 257.64 kg Michael Enciso MD Work Phone: [facility] Encounters Encounter Date Encounter Type Care Provider Facility Start: 10-13-2023 End: 10-13-2023 ambulatory [facility] Start: 10-13-2023 End: 10-14-2023 [facility] Start: 09-29-2023 Telephone encounter Cleopatra Kumar RN General Surgery Comment on above: MyChart follow up ; Patient Update Start: 09-28-2023 ambulatory [facility] Facility:[facility] Start: 09-23-2023 [facility] Facility:[facility] Start: 08-24-2023 End: 08-24-2023 Admission to same day surgery center Kavitha Nieves Work Phone: General Surgery Comment on above: Encounter for surgic al aftercare following surgery of digestive system (Primary Dx) Start: 08-24-2023 End: 08-24-2023 ambulatory [facility] Facility:[facility] Start: 08-24-2023 End: 08-24-2023 Telemedicine consultation with patient Kavitha Nieves DO Work Phone: General Surgery Start: 08-23-2023 Telephone encounter Cleopatra Kumar RN General Surgery Comment on above: BMI Follow Up Start: 08-19-2023 Telephone encounter Cleopatra Kumar RN General Surgery Comment on above: BMI Follow Up Start: 08-18-2023 End: 08-18-2023 Admission to same day surgery center Deep Lovell RD Work Phone: General Surgery Comment on above: Reassessment; Patien t Education Start: 08-18-2023 End: 08-18-[address] Work Phone: General Surgery Start: 07-28-2023 Telephone encounter Cleopatra Kumar RN General Surgery Comment on above: BMI Follow Up Start: 07-14-2023 ambulatory Dayday Jeong MD Work Phone: [facility] Comment on above: test results Start: 07-14-2023 E-mail encounter fro m caregiver Dayday Jeong MD Work Phone: [facility] Start: 07-13-2023 End: 07-13-2023 ambulatory [facility] Facility:[facility] Start: 07-13-2023 End: 07-13-2023 Patient encounter procedure Dayday Jeong MD Work Phone: [facility] Medicine Comment on above: Elevated serum creat inine (Primary Dx); Morbid obesity (HCC); Lymphedema Start: 06-27-2023 End: 06-27-2023 ambulatory [facility] Facility:[facility] Start: 06-22-2023 End: 06-22-2023 Admission to same day surgery center Fellow Margaret Main Work Phone: General Surgery Comment on above: Aftercare following surgery (Primary Dx) Start: 06-22-2023 End: 06-22-2023 Telemedicine consultation with patient Fellow Margaret Main Work Phone: [facility] Start: 06-22-2023 End: 06-22-2023 ambulatory [facility] Facility:[facility] Start: 06-21-2023 Telephone encounter Cleopatra Kumar RN General Surgery Comment on above: Patient Update BMI Follow Up Start: 06-21-2023 End: 06-21-[address] Work Phone: General Surgery Comment on above: Morbid obesity (HCC) (Primary Dx); Dietary counseling and surveillance; S/P laparoscopic sleeve gastrectomy Start: 06-21-2023 End: 06-21-2023 Telemedicine consultation with patient Deep Lovell RD Work Phone: [facility] Start: 06-14-2023 Telephone encounter Cleopatra Kumar RN General Surgery Comment on above: 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 - 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 Start: 06-10-2023 End: 06-10-[address] Work Phone: General Surgery Comment on above: S/P gastric bypass ( Primary Dx); Impaired intestinal absorption; Dietary counseling and surveillance Start: 06-10-2023 End: 06-10-2023 Telemedicine consultation with patient Rupesh Hightower RD Work Phone: [facility] Start: 06-07-2023 Telephone encounter Cleopatra Kumar RN General Surgery Comment on above: Veneer Glue Spreader - H ospital Follow Up Start: 06-01-2023 Telephone encounter Cleopatra Kumar RN General Surgery Comment on above: Veneer Glue Spreader - H ospital Follow Up Follow Up Phone Call (All Clear) Start: 06-01-2023 End: 06-01-2023 Admission to same day surgery center Fellow Margaret Main Work Phone: General Surgery Comment on above: Aftercare following surgery (Primary Dx) Start: 06-01-2023 End: 06-01-2023 ambulatory KISHOR CORBY Facility:[facility] Start: 06-01-2023 End: 06-01-2023 Telemedicine consultation with patient Fellow Margaret Main Work Phone: [facility] Start: 05-31-2023 Telephone encounter Cleopatra Kumar RN General Surgery Comment on above: Post Op Start: 05-23-2023 End: 05-30-2023 Evaluation and management of inpatient MICHAEL ENCISO Facility:[facility] Start: 05-23-2023 End: 05-23-2023 Evaluation and management of inpatient KISHOR CORBY Facility:[facility] Start: 05-23-2023 End: 05-23-2023 ambulatory KISHOR CORBY Facility:[facility] Start: 05-23-2023 Encounter for other preprocedural examination MICHAEL ENCISO [facility] Start: 05-12-2023 End: 05-12-2023 ambulatory KISHOR CORBY Facility:[facility] Start: 04-19-2023 End: 04-19-2023 ambulatory DAYDAY CLARENCE Facility:[facility] Start: 04-13-2023 End: 04-13-2023 ambulatory DAYDAY CLARENCE Facility:[facility] Start: 04-13-2023 End: 04-13-2023 Patient encounter procedure Dayday Jeong MD Work Phone: Kidney Medicine Comment on above: Elevated serum creat inine (Primary Dx); Lymphedema; Morbid obesity (HCC) Start: 04-05-2023 End: 04-05-[address] Work Phone: General Surgery Comment on above: BMI 70 and over, radha lt (HCC) (Primary Dx); Dietary counseling and surveillance Start: 04-05-2023 End: 04-05-2023 Telemedicine consultation with patient Rupesh Hightower RD Work Phone: [facility] Start: 03-14-2023 End: 03-14-[address] Work Phone: General Surgery Comment on above: BMI 70 and over, radha lt (HCC) (Primary Dx); Dietary counseling and surveillance Start: 03-14-2023 End: 03-14-2023 Telemedicine consultation with patient Rupesh Hightower RD Work Phone: [facility] Start: 02-01-2023 End: 02-01-[address] Work Phone: General Surgery Comment on above: BMI 70 and over, radha lt (HCC) (Primary Dx); Dietary counseling and surveillance Start: 02-01-2023 End: 02-01-2023 Telemedicine consultation with patient Rupesh Hightower RD Work Phone: [facility] Start: 01-24-2023 End: 01-24-2023 ambulatory Jomar Londono PhD Work Phone: General Surgery BMI PSYL Comment on above: Psychological factor s affecting morbid obesity (Primary Dx) Start: 01-24-2023 End: 01-24-2023 Telemedicine consultation with patient Jomar Londono PhD Work Phone: [facility] Start: 01-03-2023 End: 01-03-[address] Work Phone: General Surgery Comment on above: BMI 70 and over, radha lt (HCC) (Primary Dx); Dietary counseling and surveillance Start: 01-03-2023 End: 01-03-2023 Telemedicine consultation with patient Rupesh Hightower RD Work Phone: [facility] Start: 12-16-2022 ambulatory Jo Wong MECHANICAL DEVELOPER PROVER.PHYSICAL DIRECTOR Work Phone: General Surgery Comment on above: Testing results Start: 12-16-2022 E-mail encounter fro m caregiver Jo Henson APRN.PHYSICAL DIRECTOR Work Phone: [facility] Start: 12-06-2022 ambulatory Jo Wong MECHANICAL DEVELOPER PROVER.PHYSICAL DIRECTOR Work Phone: General Surgery Comment on above: Testing Start: 12-01-2022 End: 12-01-2022 ambulatory [facility] Facility:[facility] Start: 12-01-2022 End: 12-01-[address] Work Phone: [facility] Comment on above: BMI 70 and over, radha lt (HCC) (Primary Dx); Dietary counseling Start: 12-01-2022 End: 12-01-2022 Telemedicine consultation with patient Shyla Burnett RD Work Phone: [facility] Start: 11-26-2022 End: 11-26-2022 ambulatory Jo Henson APRN.PHYSICAL DIRECTOR Work Phone: General Surgery Comment on above: BMI 70 and over, radha lt (HCC) (Primary Dx); Lymphedema; Limited mobility; Gastroesophageal reflux disease without esophagitis; ISI (obstructive sleep apnea); Acquired hypothyroidism Start: 11-26-2022 End: 11-26-2022 Telemedicine consultation with patient Jo Henson APRN.PHYSICAL DIRECTOR Work Phone: [facility] Start: 11-03-2022 End: 11-03-2022 ambulatory [facility] Facility:[facility] Start: 11-03-2022 End: 11-03-[address] Work Phone: [facility] Comment on above: BMI 70 and over, radha lt (HCC) (Primary Dx); Dietary counseling Start: 11-03-2022 End: 11-03-2022 Telemedicine consultation with patient Shyla Burnett RD Work Phone: [facility] Start: 10-25-2022 End: 10-25-2022 ambulatory Michael Enciso MD Work Phone: General Surgery Comment on above: Morbid obesity (HCC) (Primary Dx); Lymphedema; Limited mobility Start: 10-25-2022 End: 10-25-2022 Telemedicine consultation with patient Michael Enciso MD Work Phone: [facility] Procedures Date Procedure Procedure Detail Performing Clinician Start: 05-26-2023 Echocardiography MICHAEL HEART Start: 05-23-2023 Antibody screen MICHAEL OLSON Comment on above: Order Comment: Speci men Type: BLOOD SPECIMENOrdering Facility: [facility] Address: [address] [place] [address] Performed By: #### T [id number] ####CC MAIN BLOOD BANKCLIA [id number] [address] Plan of Treatment Date Care Activity Detail Author Start: 05-30-2026 Diabetes Screening Diabetes Screenin g [facility] Start: 01-13-2024 End: 01-13-2024 Patient encounter procedure 01/13/2024 2:00 PM EDT Office Visit Kidney Medicine [address] [place] [address] [place] [id number] [phone] Return in about 6 months (around 01/13/2024). Kidney Medicine Comment on above: Return in about 6 mo nths (around 01/13/2024). Start: 12-25-2023 Influenza vaccination Influenz a Vaccine (Season Ended) [facility] Start: 11-17-2023 End: 11-17-2023 Follow-up encounter 11/17/2023 1:00 PM EDT [facility] General Surgery [address] [place] [address] Afua Deep, RD [address] [place], [place] [id number] follow up 6 months post op rygb General Surgery Comment on above: follow up 6 months p ost op rygb Start: 08-24-2023 End: 11-23-2023 25-hydroxyvitamin D3 [Mass/volume] in Serum or Plasma VITAMIN D 25 HYDROXY Lab Routine Encounter for surgical aftercare following surgery of digestive system Expected: 08/24/2023, Expires: 11/23/2023 [facility] Comment on above: Expected: 08/24/2023 , Expires: 11/23/2023 Start: 08-24-2023 End: 11-23-2023 CBC W Auto Differential panel - Blood COMPLETE BLOOD COUNT AND DIFFERENTIAL Lab Routine Encounter for surgical aftercare following surgery of digestive system Expected: 08/24/2023, Expires: 11/23/2023 [facility] Work Phone: Comment on above: Expected: 08/24/2023 , Expires: 11/23/2023 Start: 08-24-2023 End: 11-23-2023 Cobalamin (Vitamin B12) [Mass/volume] in Serum or Plasma VITAMIN B12 Lab Routine Encounter for surgical aftercare following surgery of digestive system Expected: 08/24/2023, Expires: 11/23/2023 [facility] Comment on above: Expected: 08/24/2023 , Expires: 11/23/2023 Start: 08-24-2023 End: 11-23-2023 Comprehensive metabolic 2000 panel - Serum or Plasma COMPREHENSIVE METABOLIC PANEL Lab Routine Encounter for surgical aftercare following surgery of digestive system Expected: 08/24/2023, Expires: 11/23/2023 [facility] Comment on above: Expected: 08/24/2023 , Expires: 11/23/2023 Start: 08-24-2023 End: 11-23-2023 Ferritin [Mass/volume] in Serum or Plasma FERRITIN Lab Routine Encounter for surgical aftercare following surgery of digestive system Expected: 08/24/2023, Expires: 11/23/2023 [facility] Comment on above: Expected: 08/24/2023 , Expires: 11/23/2023 Start: 08-24-2023 End: 11-23-2023 Folate [Mass/volume] in Serum or Plasma FOLATE, SERUM Lab Routine Encounter for surgical aftercare following surgery of digestive system Expected: 08/24/2023, Expires: 11/23/2023 [facility] Comment on above: Expected: 08/24/2023 , Expires: 11/23/2023 Start: 08-24-2023 End: 11-23-2023 Iron and Iron binding capacity panel - Serum or Plasma IRON AND TIBC Lab Routine Encounter for surgical aftercare following surgery of digestive system Expected: 08/24/2023, Expires: 11/23/2023 [facility] Comment on above: Expected: 08/24/2023 , Expires: 11/23/2023 Start: 08-24-2023 End: 11-23-2023 Magnesium [Mass/volume] in Serum or Plasma MAGNESIUM Lab Routine Encounter for surgical aftercare following surgery of digestive system Expected: 08/24/2023, Expires: 11/23/2023 [facility] Comment on above: Expected: 08/24/2023 , Expires: 11/23/2023 Start: 08-24-2023 End: 11-23-2023 Parathyrin.intact [Mass/volume] in Serum or Plasma PTH INTACT Lab Routine Encounter for surgical aftercare following surgery of digestive system Expected: 08/24/2023, Expires: 11/23/2023 [facility] Comment on above: Expected: 08/24/2023 , Expires: 11/23/2023 Start: 08-24-2023 End: 11-23-2023 VITAMIN B1 (THIAMINE), WHOLE BLOOD VITAMIN B1 (THIAMINE), WHOLE BLOOD Lab Routine Encounter for surgical aftercare following surgery of digestive system Expected: 08/24/2023, Expires: 11/23/2023 [facility] Comment on above: Expected: 08/24/2023 , Expires: 11/23/2023 Start: 08-23-2023 End: 08-23-2023 Admission to same day surgery center 08/23/2023 10:00 AM EDT [facility] [address] [place] [address] Ashley Mehta MD [address] [place] [address] post op three months/ RYGB 05/24/2023 General Surgery Comment on above: post op three months / RYGB 05/24/2023 Start: 07-28-2023 End: 10-27-2023 POTASSIUM BLD POTASSIUM BLD Lab Routine Hypokalemia Expected: 07/28/2023, Expires: 10/27/2023 [facility] Work Phone: Comment on above: Expected: 07/28/2023 , Expires: 10/27/2023 Start: 04-25-2023 Depression Assessment Depression Ass essment [facility] Start: 2023 Screening for malign ant neoplasm of colon [facility] Start: 04-13-2023 End: 07-13-2023 25-hydroxyvitamin D3 [Mass/volume] in Serum or Plasma VITAMIN D 25 HYDROXY Lab Routine Elevated serum creatinine Expected: 04/13/2023, Expires: 07/13/2023 [facility] Work Phone: Comment on above: Expected: 04/13/2023 , Expires: 07/13/2023 Start: 04-13-2023 End: 07-13-2023 ALBUMIN/CREAT RATIO RND UR ALBUMIN/CREAT RATIO RND UR Lab Routine Elevated serum creatinine Expected: 04/13/2023, Expires: 07/13/2023 [facility] Work Phone: Comment on above: Expected: 04/13/2023 , Expires: 07/13/2023 Start: 04-13-2023 End: 07-13-2023 CBC panel - Blood by Automated count CBC Lab Routine Elevated serum creatinine Expected: 04/13/2023, Expires: 07/13/2023 [facility] Work Phone: Comment on above: Expected: 04/13/2023 , Expires: 07/13/2023 Start: 04-13-2023 End: 07-13-2023 CYSTATIN C CYSTATIN C Lab Routine Elevated serum creatinine Expected: 04/13/2023, Expires: 07/13/2023 [facility] Work Phone: Comment on above: Expected: 04/13/2023 , Expires: 07/13/2023 Start: 04-13-2023 End: 07-13-2023 Magnesium [Mass/volume] in Serum or Plasma MAGNESIUM BLD Lab Routine Elevated serum creatinine Expected: 04/13/2023, Expires: 07/13/2023 [facility] Work Phone: Comment on above: Expected: 04/13/2023 , Expires: 07/13/2023 Start: 04-13-2023 End: 07-13-2023 Parathyrin.intact [Mass/volume] in Serum or Plasma PTH INTACT BLD Lab Routine Elevated serum creatinine Expected: 04/13/2023, Expires: 07/13/2023 [facility] Work Phone: Comment on above: Expected: 04/13/2023 , Expires: 07/13/2023 Start: 04-13-2023 End: 07-13-2023 Protein/Creatinine [Mass Ratio] in Urine PROTEIN CREATININE RATIO Lab Routine Elevated serum creatinine Expected: 04/13/2023, Expires: 07/13/2023 [facility] Work Phone: Comment on above: Expected: 04/13/2023 , Expires: 07/13/2023 Start: 04-13-2023 End: 07-13-2023 Renal function 2000 panel - Serum or Plasma RENAL FUNCTION PANEL Lab Routine Elevated serum creatinine Expected: 04/13/2023, Expires: 07/13/2023 [facility] Work Phone: Comment on above: Expected: 04/13/2023 , Expires: 07/13/2023 Start: 04-13-2023 End: 07-13-2023 Urinalysis complete panel - Urine URINALYSIS, WITH MICROSCOPIC Lab Routine Elevated serum creatinine Expected: 04/13/2023, Expires: 07/13/2023 [facility] Work Phone: Comment on above: Expected: 04/13/2023 , Expires: 07/13/2023 Start: 12-24-2022 Covid-19 Vaccine (1 - 2023-24 season) Covid-19 Vaccine (2022-[address] season) [facility] Start: 12-24-2022 Influenza vaccination [facility] Start: 11-26-2022 End: 01-26-2023 25-hydroxyvitamin D3 [Mass/volume] in Serum or Plasma VITAMIN D 25 HYDROXY Lab Routine BMI 70 and over, adult (HCC) Expected: 11/26/2022, Expires: 01/26/2023 [facility] Work Phone: Comment on above: Expected: 11/26/2022 , Expires: 01/26/2023 Start: 11-26-2022 End: 01-26-2023 CBC W Auto Differential panel - Blood CBC + DIFF Lab Routine BMI 70 and over, adult (HCC) Expected: 11/26/2022, Expires: 01/26/2023 [facility] Work Phone: Comment on above: Expected: 11/26/2022 , Expires: 01/26/2023 Start: 11-26-2022 End: 01-26-2023 Cobalamin (Vitamin B12) [Mass/volume] in Serum or Plasma VITAMIN B12 BLOOD Lab Routine BMI 70 and over, adult (HCC) Expected: 11/26/2022, Expires: 01/26/2023 [facility] Work Phone: Comment on above: Expected: 11/26/2022 , Expires: 01/26/2023 Start: 11-26-2022 End: 01-26-2023 Comprehensive metabolic 2000 panel - Serum or Plasma COMP METABOLIC PANEL Lab Routine BMI 70 and over, adult ([facility]) Gastroesophageal reflux disease without esophagitis Expected: 11/26/2022, Expires: 01/26/2023 [facility] Work Phone: Comment on above: Expected: 11/26/2022 , Expires: 01/26/2023 Start: 11-26-2022 End: 01-26-2023 Ferritin [Mass/volume] in Serum or Plasma FERRITIN BLD Lab Routine BMI 70 and over, adult (HCC) Expected: 11/26/2022, Expires: 01/26/2023 [facility] Work Phone: Comment on above: Expected: 11/26/2022 , Expires: 01/26/2023 Start: 11-26-2022 End: 01-26-2023 Folate [Mass/volume] in Serum or Plasma FOLATE SERUM Lab Routine BMI 70 and over, adult (HCC) Expected: 11/26/2022, Expires: 01/26/2023 [facility] Work Phone: Comment on above: Expected: 11/26/2022 , Expires: 01/26/2023 Start: 11-26-2022 End: 01-26-2023 Helicobacter pylori IgG Ab [Presence] in Serum or Plasma by Immunoassay H PYLORI IGG AB Lab Routine BMI 70 and over, adult ([facility]) Expected: 11/26/2022, Expires: 01/26/2023 [facility] Work Phone: Comment on above: Expected: 11/26/2022 , Expires: 01/26/2023 Start: 11-26-2022 End: 01-26-2023 Hemoglobin A1c in Blood HGB A1C Lab Routine BMI 70 and over, adult ([facility]) Expected: 11/26/2022, Expires: 01/26/2023 [facility] Work Phone: Comment on above: Expected: 11/26/2022 , Expires: 01/26/2023 Start: 11-26-2022 End: 01-26-2023 Iron and Iron binding capacity panel - Serum or Plasma IRON + TIBC Lab Routine BMI 70 and over, adult ([facility]) Expected: 11/26/2022, Expires: 01/26/2023 [facility] Work Phone: Comment on above: Expected: 11/26/2022 , Expires: 01/26/2023 Start: 11-26-2022 End: 01-26-2023 Lipid 1996 panel - Serum or Plasma LIPID PANEL BASIC Lab Routine BMI 70 and over, adult (HCC) Expected: 11/26/2022, Expires: 01/26/2023 [facility] Work Phone: Comment on above: Expected: 11/26/2022 , Expires: 01/26/2023 Start: 11-26-2022 End: 01-26-2023 Natriuretic peptide.B prohormone N-Terminal [Mass/volume] in Serum or Plasma NT PRO BNP Lab Routine BMI 70 and over, adult (HCC) Expected: 11/26/2022, Expires: 01/26/2023 [facility] Work Phone: Comment on above: Expected: 11/26/2022 , Expires: 01/26/2023 Start: 11-26-2022 End: 01-26-2023 NICOTINE & METAB, UR NICOTINE & METAB, UR Lab Routine BMI 70 and over, adult (HCC) Expected: 11/26/2022, Expires: 01/26/2023 [facility] Work Phone: Comment on above: Expected: 11/26/2022 , Expires: 01/26/2023 Start: 11-26-2022 End: 01-26-2023 Thyrotropin [Units/volume] in Serum or Plasma TSH BLD Lab Routine BMI 70 and over, adult (HCC) Acquired hypothyroidism Expected: 11/26/2022, Expires: 01/26/2023 [facility] Work Phone: Comment on above: Expected: 11/26/2022 , Expires: 01/26/2023 Start: 11-26-2022 End: 01-26-2023 TOX SCREEN ROUT UR TOX SCREEN ROUT UR Lab Routine BMI 70 and over, adult (HCC) Expected: 11/26/2022, Expires: 01/26/2023 [facility] Work Phone: Comment on above: Expected: 11/26/2022 , Expires: 01/26/2023 Start: 11-26-2022 End: 01-26-2023 VITAMIN B1 (THIAMINE), WHOLE BLOOD VITAMIN B1 (THIAMINE), WHOLE BLOOD Lab Routine BMI 70 and over, adult (HCC) Expected: 11/26/2022, Expires: 01/26/2023 [facility] Work Phone: Comment on above: Expected: 11/26/2022 , Expires: 01/26/2023 Start: 04-25-2022 DEPRESSION ASSESSMENT DEPRESSION ASS ESSMENT [facility] Start: 2013 Lipid 1996 panel - Serum or Plasma Lipid Screening [facility] Start: 2013 Lipid panel Lipid Screening [facility] Start: 2013 L[address] SCREEN LIPID SCREEN [facility] Start: 1997 Hepatitis B Vaccine (1 of 3 - 19+ 3-dose series) Hepatitis B Vaccine (1 of 3 - 19+ 3-dose series) [facility] Start: [address] 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 Start: 1996 HEPATITIS C SCREENING HEPATITIS C [facility] Start: 1996 Hepatitis C screening Hepatitis C [facility] Start: 1996 HIV SCREENING HIV SCREENING [facility] Start: 1996 HIV screening HIV Screening [facility] Start: 1978 COVID-19 VACCINE (#1) COVID-19 VACCI NE (#1) [facility] Start: 1978 HEPATITIS B (1 of 3 - 3-dose series) HEPATITIS B (1 of 3 - 3-dose series) [facility] Start: 1978 Hepatitis B Vaccine (1 of 3 - 3-dose series) Hepatitis B Vaccine (1 of 3 - 3-dose series) [facility] End: 04-13-2024 CBC panel - Blood by Automated count CBC Lab Routine Elevated serum creatinine Every 3 months for 4 Occurrences starting 04/13/2023 until 04/13/2024 [facility] Work Phone: Comment on above: Every 3 months for 4 Occurrences starting 04/13/2023 until 04/13/2024 End: 07-12-2024 CBC panel - Blood by Automated count CBC Lab Routine Elevated serum creatinine Every 6 months for 3 Occurrences starting 07/13/2023 until 07/12/2024, 1 completed [facility] Work Phone: Comment on above: Every 6 months for 3 Occurrences starting 07/13/2023 until 07/12/2024, 1 completed End: 07-12-2024 CYSTATIN C CYSTATIN C Lab Routine Elevated serum creatinine Every 6 months for 4 Occurrences starting 07/13/2023 until 07/12/2024, 1 completed [facility] Work Phone: Comment on above: Every 6 months for 4 Occurrences starting 07/13/2023 until 07/12/2024, 1 completed End: 11-27-2023 ECG COMPLETE ECG COMPLETE ECG Routine BMI 70 and over, adult (HCC) Lymphedema 1 Occurrences starting 11/26/2022 until 11/27/2023 [facility] Work Phone: Comment on above: 1 Occurrences starti ng 11/26/2022 until 11/27/2023 End: 04-13-2024 Protein/Creatinine [Mass Ratio] in Urine PROTEIN CREATININE RATIO Lab Routine Elevated serum creatinine Every 3 months for 4 Occurrences starting 04/13/2023 until 04/13/2024 [facility] Work Phone: Comment on above: Every 3 months for 4 Occurrences starting 04/13/2023 until 04/13/2024 End: 07-12-2024 Protein/Creatinine [Mass Ratio] in Urine PROTEIN CREATININE RATIO Lab Routine Elevated serum creatinine Every 6 months for 3 Occurrences starting 07/13/2023 until 07/12/2024, 1 completed [facility] Work Phone: Comment on above: Every 6 months for 3 Occurrences starting 07/13/2023 until 07/12/2024, 1 completed End: 12-26-2023 Radiologic exam chest 2 views XR CHEST 2V FRONTAL/LAT Radiology Routine BMI 70 and over, adult (HCC) ISI (obstructive sleep apnea) 1 Occurrences starting 11/26/2022 until 12/26/2023 [facility] Work Phone: Comment on above: 1 Occurrences starti ng 11/26/2022 until 12/26/2023 End: 04-13-2024 Renal function 2000 panel - Serum or Plasma RENAL FUNCTION PANEL Lab Routine Elevated serum creatinine Every 3 months for 4 Occurrences starting 04/13/2023 until 04/13/2024 [facility] Work Phone: Comment on above: Every 3 months for 4 Occurrences starting 04/13/2023 until 04/13/2024 End: 07-12-2024 Renal function 2000 panel - Serum or Plasma RENAL FUNCTION PANEL Lab Routine Elevated serum creatinine Every 6 months for 3 Occurrences starting 07/13/2023 until 07/12/2024, 1 completed [facility] Work Phone: Comment on above: Every 6 months for 3 Occurrences starting 07/13/2023 until 07/12/2024, 1 completed End: 04-13-2024 Urinalysis complete panel - Urine URINALYSIS, WITH MICROSCOPIC Lab Routine Elevated serum creatinine Every 3 months for 4 Occurrences starting 04/13/2023 until 04/13/2024 [facility] Work Phone: Comment on above: Every 3 months for 4 Occurrences starting 04/13/2023 until 04/13/2024 End: 12-26-2023 US ABD RIGHT UPPER QUADRANT US ABD RIGHT UPPER QUADRANT Radiology Routine BMI 70 and over, adult (HCC) 1 Occurrences starting 11/26/2022 until 12/26/2023 [facility] Work Phone: Comment on above: 1 Occurrences starti ng 11/26/2022 until 12/26/2023 End: 05-12-2024 US KIDNEY/BLADDER US KIDNEY/BLADDER Radiology Routine Elevated serum creatinine 1 Occurrences starting 04/13/2023 until 05/12/2024 [facility] Work Phone: Comment on above: 1 Occurrences starti ng 04/13/2023 until 05/12/2024 [facility] Payers Date Payer Category Payer Self-pay 2022 Private Health Insurance [employer]ICA[employer] [facility] [id number] 2022-Present [address] [address] [place] [address] Medicaid [id number] 2022 Medicaid [id number] 1980 Unknown [id number] 1978 Unknown [id number] 1978 Unknown [id number] Unknown [id number] Unknown [id number] Social History Date Type Detail Facility Tobacco smoking stat [facility] Tobacco smoking consumption unknown [facility] Start: 1980 Sex Assigned At Not on file C [facility] Start: 10-25-2022 End: 05-25-2023 History of Social function [facility] Start: 10-25-2022 End: 05-25-[address] [facility] National Score (1-10 0), lower number is lower risk 74 [facility] Start: 11-26-2022 Tobacco smoking stat [facility] Never smoked tobacco [facility] Work Phone: Start: 11-26-2022 Tobacco use and exposure Smoke less tobacco non-user [facility] Work Phone: Start: 11-26-2022 End: 08-24-2023 Alcohol intake Ex-drinker (finding) [facility] Has the [employer], or [employer] threatened to shut off services in your home in past 12Mo No [facility] How hard is it for y ou to pay for the very basics like food, housing, medical care, and heating Not very hard [facility] (I/We) worried regi er (my/our) food would run out before (I/we) got money to buy more. Never true [facility] Goals Date Patient Goal Desired Activity /State Personal health goal Clinical Notes 10-25-2022 to 09-29-2023 Telephone Encounter - Cleopatra Kumar RN - 09/29/2023 4:29 PM EDTTelephone Encounter - Cleopatra Kumar RN - 09/29/2023 4:29 PM Kavitha Mitchell DO - 08/24/2023 2:41 PM EDTPatient Instructions Note Date & Type Note Facility 09-29-2023 Telephone encounter Note BMI SPECIALTY CARE COORDINATION TELEPHONE ENCOUNTER Phoned patient after received [employer] message. Chief complaint & duration : c/o dizzy last three weeks Type of procedure: farrah en y gastric bypass with Dr. Enciso in May 24, 2023. Nursing assessment (subjective/objective) Last three weeks c/o once or twice a day feeling dizzy when stands up, blacks out for a few seconds and c/o intermittent cramping in hands in legs. Thinks his potassium may be low. Confirmed taking toresemide 100 mg daily. Patient thinks dose needs to be adjusted. Continues with PT and [facility] regularly. Confirmed drinking 64 ounces of clear liquids each day. Denies feeling thirsty. Finding different sources of protein has been challenging. Likes shrimp, chicken, meatballs. Patient is allergic to dairy. Working 1:1 with [employer] [facility] JESUS. Confirmed has [facility] aide comes to patient home when needed. Aide suggested patient send [employer] message since PCP could not see patient until 10/13/23. Confirmed taking bariatric vitamins. Last BM soft brown 09/29/23, Urine clear yellow. Denies pain, nausea, vomit. Recommendation: RN phoned patient PCP office; spoke with nurse Kwok. Three way called patient to confirm availability for 0909/30/23 appointment with [facility]. Additionally 3 way call to Waiver Program Guide [employer] Brigitte Mejia to provide update. Confirmed [facility] aide available for patient needs. Reviewed falls precautions with patient. Stand up slowly when rising from seated to standing position. Patient agreed to call [facility] with any further needs, questions or concerns. [facility] 09-29-2023 Miscellaneous Notes BMI SPECIALTY CARE COORDINATION TELEPHONE ENCOUNTER Phoned patient after received [employer] message. Chief complaint & duration : c/o dizzy last three weeks Type of procedure: farrah en y gastric bypass with Dr. Enciso in May 24, 2023. Nursing assessment (subjective/objective) Last three weeks c/o once or twice a day feeling dizzy when stands up, blacks out for a few seconds and c/o intermittent cramping in hands in legs. Thinks his potassium may be low. Confirmed taking toresemide 100 mg daily. Patient thinks dose needs to be adjusted. Continues with PT and [facility] regularly. Confirmed drinking 64 ounces of clear liquids each day. Denies feeling thirsty. Finding different sources of protein has been challenging. Likes shrimp, chicken, meatballs. Patient is allergic to dairy. Working 1:1 with Deep DE JESUS. Confirmed has [facility] aide comes to patient home when needed. Aide suggested patient send [employer] message since PCP could not see patient until 10/13/23. Confirmed taking bariatric vitamins. Last BM soft brown 09/29/23, Urine clear yellow. Denies pain, nausea, vomit. Recommendation: RN phoned patient PCP office; spoke with nurse Kwok. Three way called patient to confirm availability for 0909/30/23 appointment with [facility]. Additionally 3 way call to Waiver Program Guide [employer] Brigitte Mejia to provide update. Confirmed [facility] aide available for patient needs. Reviewed falls precautions with patient. Stand up slowly when rising from seated to standing position. Patient agreed to call [facility] with any further needs, questions or concerns. documented in this encounter [facility] 08-24-2023 Note [facility] 08-24-2023 History of Present illness Narrative DIST[facility] VISIT This Team Access Model visit is a virtual encounter. It required patient-provider interaction for the medical decision making as documented below. BMI OM PostOp Clinic Note August 24, 2023 Index Surgery Date of Surgery: 05/24/2023 Surgeon: Michael Enciso MD Surgical Procedure: LAPAROSCOPIC GASTRIC RESTRICTIVE SURG W/ BYPASS & FARRAH-EN-Y 150CM OR LESS Pre-surgical weight: 281 kg (619 lb 7.9 oz) Total weight loss: 99 lbs Curtis weight: 81.3 kg (179 lb 4.3 oz) Other Bariatric Surgeries None Visit: 3 months Today's Visit: There were no vitals taken for this visit. His current weight is 520 lbs. Previous Weight: Last 5 Encounter Wt Readings: Date: Wt: 08/18/2023 235.9 kg (520 lb) 07/13/2023 238.1 kg (525 lb) 06/21/2023 254 kg (560 lb) 05/23/2023 281 kg (619 lb 7.9 oz) 04/26/2023 260.3 kg (573 lb 12.8 oz) COMPLICATIONS SINCE LAST VISIT?: NONE INTERVAL HISTORY Here for postop visit, 3 months, has done well until a recent episode of gout of the right foot, started on allopurinol 100 mg yesterday. The patient was recently discovered to have low potassium of 3.1 and as it turns out he was discharged on 100 mg of furosemide and not on spironolactone. He was on this combination and did not have any issues with hypokalemia until he was discharged on torsemide as a sole diuretic. His primary care physician started him on potassium 20 mEq daily. He was instructed to have a potassium checked in 3 months. He does have chronic kidney disease and has a follow-up with his torch straightener and heater in December. DIET INTAKE: tolerates Phase V diet, seen by the environmental monitoring technician 08/18/23, encouraged other sources for protein and to continue to strive for 98 g protein per day. Focus on meats you can tolerate such as chicken, turkey, shellfish, beans, nuts/nut butters, and fish DAILY SUPPLEMENTS: Yes Calcium: No Multivitamin & Minerals: ray melt + iron 2 daily Iron Supplement: ferrous sulfate 65 mg once a day. (He was started on additional iron by his primary care physician because of a normochromic normocytic anemia). Vitamin B12: included in multivitamin Vitamin D3: included in multi-vitamin and is vitamin D3 50,000 international unit(s) weekly. Other: N/A EXERCISE: Limited by the development of gout of his toe. SLEEP: ISI Yes , CPAP Yes Current Outpatient Medications Medication Sig potassium chloride ER (KLOR-CON M20) 20 mEq tablet Take 2 tablets by mouth once daily. ondansetron (ZOFRAN) 4 mg tablet Take 1 tablet by mouth every 6 hours as needed for nausea/vomiting for up to [address] (PROTONIX) 40 mg tablet Take 1 tablet by mouth once daily. Walker misc 1 Units as needed. (Patient not taking: Reported on 07/13/2023) cholecalciferol, Vitamin D3, (VITAMIN D3) 1,250 mcg (50,000 unit) cap capsule Take 1 capsule by mouth one time a week. Afterwards take 2000 units over the counter daily levothyroxine (SYNTHROID) 125 mcg tablet torsemide (DEMADEX) 100 mg tablet Take 100 mg by mouth once daily. No current facility-administered medications for this visit. REVIEW OF SYSTEMS: Denies nausea, vomiting, dumping syndrome, reactive hypoglycemia, gustatory rhinorrhea, Denies abdominal pain, constipation, diarrhea, melena, hematochezia, Denies paresthesias, gait abnormality, fatigue, weakness, lower extremity edema, and Denies taking NSAIDs OBESITY MEDICINE COMORBIDITIES: Obstructive Sleep Apnea Sleep Apnea with use of CPAP, Bi-PAP, or similar technology, chronic kidney disease, and chronic lymphedema PHYSICAL EXAM: Self-reported weight is 520 pounds Assessment 43 year old male with Class III obesity 3 months s/p LAPAROSCOPIC GASTRIC RESTRICTIVE SURG W/ BYPASS & FARRAH-EN-Y 150CM OR LESS, with an excellent, 16 % body weight loss or 99 pound weight loss at the 3-month visit. He did develop hypokalemia due to using torsemide and is not currently on spironolactone. He is now on potassium 20 mill equivalents daily and his primary care physician will have his level checked in the next 3 months. He otherwise is having no issues except for developing gout and is now on allopurinol. He was recently seen by the dietitian and should be on around 90 g of protein per day. He has a follow-up with the dietitian in October. Currently with healthy lifestyle. taking supplements Patient Active Problem List Acute postoperative respiratory insufficiency Compensated respiratory acidosis Hypervolemia Hypoxia Post-op pain Obesity hypoventilation syndrome (HCC) Acute respiratory failure with hypoxia and hypercapnia (HCC) Elevated serum creatinine BMI 70 and over, adult (HCC) Gastroesophageal reflux disease without esophagitis ISI (obstructive sleep apnea) Acquired hypothyroidism Morbid obesity (HCC) Lymphedema Limited mobility Resolved Hospital Problems No resolved problems to display. Plan -Continue the Ray melts twice daily, calcium citrate 1200 to 1500 mg daily, vitamin D3 50,000 international units weekly, and is on additional iron beyond what is in the Ray melts + iron. -Instructed to keep follow-up visit with a dietitian in October. -Continue to use BiPAP -Should slowly start adding more activity and walking daily once the gout resolves. DISPOSITION: Return 3 month for a 6-month Post-op follow up/ individual office visit EDUCATION: Encouraged to continue with healthy lifestyle changes and incorporate cardiovascular and resistance training, Discussed weight loss expectations after bariatric and metabolic surgery, Advised PT to avoid NSAIDs, smoking tobacco given increased risk of marginal ulcers, or Discussed importance of protein intake as per the RDN note REFERRALS: N/A LABS: Today: See Epic Orders for labs that will be completed when he returns in 3 months. I spent a total of 40 minutes on the date of the service which included completing clinical documentation, obtaining and/or reviewing separately obtained history, counseling and educating the patient/family/caregiver, and ordering medications, tests, or procedures. Kavitha Nieves DO documented in this encounter [facility] 08-23-2023 Telephone encounter Note Repeat follow up call to patient s/p 05/24/23 RYGB after received message from NEAL c/o daily difficulties tolerating larger portions, nausea, and vomiting. Patient currently at PCP visit and is asking for call back after 3:30 p.m. Will follow. Patient notes learning to take smaller bites of food and reports occasional nausea, last episode of nausea, vomit over two weeks ago; occurs after smells seafood or taste of chicken. Denies difficulty swallowing food. Tolerates and likes eating prepared grilled chicken (from [employer]), string beans, baked beans without sugar. Patient allergic to dairy and notes occasional thirst. Confirmed drinking daily 64 ounces clear liquids. Working out daily with dumbells and resistance bands Patient presented to PCP today for c/o pain in right great toe gout and will start prescription allopurinol, advised to increase potassium today. Advised lab work showed anemia; started on additional iron and advised to start calcium. PCP placed referral to begin PT at facility that has a pool. This facility is the same facility patient receives twice weekly lymphedema treatment (wraps). Last BM formed brown 08/23/23 Urine clear yellow Patient verbalized understanding to continue to try to incorporate new foods. Patient verbalized understanding of s/s of dehydration and to use HELP card if has dark urine, dizziness to arrange for IV fluids if needed. [facility] 08-23-2023 Miscellaneous Notes Repeat follow up call to patient s/p 05/24/23 RYGB after received message from RD c/o daily difficulties tolerating larger portions, nausea, and vomiting. Patient currently at PCP visit and is asking for call back after 3:30 p.m. Will follow. Patient notes learning to take smaller bites of food and reports occasional nausea, last episode of nausea, vomit over two weeks ago; occurs after smells seafood or taste of chicken. Denies difficulty swallowing food. Tolerates and likes eating prepared grilled chicken (from [employer]), string beans, baked beans without sugar. Patient allergic to dairy and notes occasional thirst. Confirmed drinking daily 64 ounces clear liquids. Working out daily with dumbells and resistance bands Patient presented to PCP today for c/o pain in right great toe gout and will start prescription allopurinol, advised to increase potassium today. Advised lab work showed anemia; started on additional iron and advised to start calcium. PCP placed referral to begin PT at facility that has a pool. This facility is the same facility patient receives twice weekly lymphedema treatment (wraps). Last BM formed brown 08/23/23 Urine clear yellow Patient verbalized understanding to continue to try to incorporate new foods. Patient verbalized understanding of s/s of dehydration and to use HELP card if has dark urine, dizziness to arrange for IV fluids if needed. documented in this encounter [facility] 08-19-2023 Telephone encounter Note Follow up call placed to patient s/p 05/24/23 RYGB after received message from dietitian, no answer phone; left voice message asking patient to call RN and provided RN call back phone number. [facility] 08-19-2023 Miscellaneous Notes Follow up call placed to patient s/p 05/24/23 RYGB after received message from dietitian, no answer phone; left voice message asking patient to call RN and provided RN call back phone number. documented in this encounter [facility] 08-18-[address] - 08/18/2023 2:20 PM EDT Nutrition Action Plan 1. Protein: Continue to strive for 98 g protein per day. Focus on meats you can tolerate such as chicken, turkey, shellfish, beans, nuts/nut butters, and fish 2. Eat 4 small meals per day or 3 meals and 1-2 small snacks for additional protein 3. Fluids: 64 oz per day, minimum. No carbonation, no caffeine, no calories, no alcohol. 4. Vitamin/minerals: continue 2 barimelts with iron; add in 7972-8051 mg calcium citrate per day 5. Exercise: Try these exercises once you are feeling better. Increase time and intensity as able Hango workout database: https://[employer]/ Chair or standing Team Body Project https://www.Twitsaleube.com/watch?v=e8op MY-SoZc Chair exercise [employer] https://www.[employer]/resource /videos-detail.asp?video=38 Barbara Khoury Easy walk in place 15 min https://www.youCrowdFlowerube.com/watch?v=njeZ 29umqVE Body Project 30 min https://youCrowdFloweru.be/J-MocP1MT-4 Barbara Iraida Higher intensity walk 30 min https://www.youCrowdFlowerube.com/watch?v=cvEJ 0ENl2CC 6. Practice these: * Separate eating and drinking by 30 minutes * Chew your food 20-30x per bite * Meals should last 30 minutes. 7. May advance to Phase IV diet plan once feeling better and getting >98 gm protein daily Follow Up as needed and on 11/16 at 1 PM documented in this encounter [facility] 08-18-2023 History of Present illness Narrative [facility] Nutrition Therapy: Virtual Consult - Re-assessment I have communicated my name and active licensure. The patient s identity and physical location were verified at the time of this visit. Either the patient or their legal business services sales representative has been informed of the risks and benefits of -- and alternatives to -- treatment through a remote evaluation and consents to proceed with the evaluation remotely. Nutrition Diagnosis: Inadequate oral intake, related to, s/p bariatric surgery, as evidenced by patient report and diet recall, Altered Gastrointestinal Tract Function, related to, S/P bariatric surgery, as evidenced by patient report and past surgical history and Overweight/obesity, related to, food/nutrition - related knowledge deficit and physical inactivity, as evidenced by BMI above normative standard for age and gender RECOMMENDED MALNUTRITION DIAGNOSIS: NO MALNUTRITION IDENTIFIED NUTRITION CARE PLAN: Nutrition Intervention 08/18/2023: 1. Protein: Continue to strive for 98 g protein per day. Focus on meats you can tolerate such as chicken, turkey, shellfish, beans, nuts/nut butters, and fish 2. Eat 4 small meals per day or 3 meals and 1-2 small snacks for additional protein 3. Fluids: 64 oz per day, minimum. No carbonation, no caffeine, no calories, no alcohol. 4. Vitamin/minerals: continue 2 barimelts with iron; add in 6753-6177 mg calcium citrate per day 5. Exercise: Try these exercises once you are feeling better. Increase time and intensity as able Hango workout database: https://[employer]/ Chair or standing Team Body Project https://www.Twitsaleube.com/watch?v=e8op MY-SoZc Chair exercise [employer] https://www.[employer]/resource /videos-detail.asp?video=38 Barbaratamra Khoury Easy walk in place 15 min https://www.youtube.com/watch?v=njeZ 29umqVE Body Project 30 min https://youCrowdFloweru.be/J-OlvO1DL-1 Barbara Iraida Higher intensity walk 30 min https://www.youCrowdFlowerube.com/watch?v=cvEJ 6MMk8HM 6. Practice these: * Separate eating and drinking by 30 minutes * Chew your food 20-30x per bite * Meals should last 30 minutes. 7. May advance to Phase IV diet plan once feeling better and getting >98 gm protein daily Nutrition Monitoring & Evaluation: BMI <70, diet recall, symptom review Need for Follow up: as needed and 6 months post op PROGRESS: 3 months post op RYGB (Francofeliberto) Net weight loss 48 lbs (568 lbs initial) Pre-surgery weight: 619.5 pounds 16 % TWL weight loss as expected based on pre surgical weight 40 pounds weight loss since last assessment (560 lbs) Diet recall indicates a somewhat inconsistent meal pattern with sometimes skipping breakfast. Patient reports daily difficulties tolerating larger portions, nausea, and vomiting. RN notified. He has not yet been able to add in vegetables at this time. Patient confirms to eat slowly and separates fluids from foods as recommended. ~600-800 calories/day inadequate, but increasing <30 gm protein intake/day inadequate ~64 oz fluid intake/day meets recommendations Consistent with appropriate vitamin/minerals inadequate in calcium Labs reveal elevated creatinine and glucose Resting Metabolic Rate: 3266 Energy needs for weight loss: 3401-0607 calories per day (10-15 kcal/kg CBW) Protein needs: 98 grams protein per day (1.2 g/kg IBW) Nutrition Intervention Jj Lovell 06/21/23 1. Continue to take all recommended vitamin/minerals: 2 Barimelts with iron; Switch to 1684-8517 mg calcium citrate per day IN PROGRESS 2. Protein goal: 98 grams protein/day NOT MET 3. Fluid goal: 64 ounces per day (no carbonation, caffeine, calories, alcohol) MET 4. Exercise goal: resume walking as able; add in strength training ocne cleared by surgical team NOT MET 5. Practice mindful eating habits-take small portions, eat slowly, chew thoroughly MET Actions to implement interventions: see assessment Diet History: Breakfast - skips OR 1 egg (7 gm pro) Snack - none Lunch - 2 oz chicken OR turkey (14 gm pro) Snack - none OR SF popsicles Dinner - 1 oz chicken OR turkey (7 gm pro) Snack - none Beverages - 3-4 bottles water, a few SF popsicles, sometimes 1 c SF lemonade Alcohol - none Vitamins/Supplements - 2 Barimelts with iron, vitamin B12, vitamin D OTC Activity: Activities of Daily Living: Active 50% of the day. 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 Resting Metabolic Rate: 3289 Malnutrition Screening Significant unintentional weight loss? No Eating less than 75% of usual intake for more than 2 weeks? Yes, but advancing as able Potential Signs of Inflammation: chronic condition Education Materials Provided: None this visit READINESS TO LEARN Cognitive ability: Alert and oriented Motivation to learn: Interested Family support: Unable to assess - Family not present Instruction provided to: Patient Patient learns best by: Multiple Methods Factors affecting learning: None Physical limitations affecting learning: None Likelihood of Adherence: Moderate Referred by: Zaria GILLIAM Billing Type: Re-assess/15 min 2 units SIGNATURE: Deep Lovell RD PATIENT NAME: Sherman Marie DATE: 08/18/2023 TIME: 2:19 PM documented in this encounter [facility] 08-18-2023 Note [facility] 07-28-2023 Miscellaneous Notes Follow up call placed to patient s/p 05/24/23 RYGB , no answer phone; left voice message asking patient to provide update and provided RN call back phone number. documented in this encounter [facility] 07-13-2023 History of Present illness Narrative [facility] SERVICE DATE: 07/13/2023 CHIEF COMPLAINT: CKD f/u HPI: 42 year old male with medical history significant for Morbid Obesity, Lymphedema, fatty liver comes for a follow-up of CKD. Previous and recent results/notes reviewed. Relevant events/history: --Prolonged hospitalization in September, in [place], [place] because of restricted mobility from severe obesity. Also had ASHLYN. Was started on diuretics. -04/13/2023: Seen by me as a new consult. Records from [place], [place] obtained. Potassium chloride and vitamin D prescribed. 07/13/2023 Had surgery and has lost around 99 lbs. Doing well. BP at home: 120s/80s Spironolactone was stopped And he is taking Torsemide only as needed Mostly doing well with compression stockings PAST MEDICAL HISTORY: ACTIVE PROBLEM LIST Morbid Obesity (Hcc) Lymphedema Limited Mobility Bmi 70 and Over, Adult ([facility]) Gastroesophageal Reflux Disease Without Esophagitis Isi (Obstructive Sleep Apnea) Acquired Hypothyroidism Elevated Serum Creatinine Hypoxia Post-Op Pain Obesity Hypoventilation Syndrome ([facility]) Acute Respiratory Failure With Hypoxia and Hypercapnia ([facility]) Compensated Respiratory Acidosis Hypervolemia Acute Postoperative Respiratory Insufficiency MEDICATIONS: ondansetron (ZOFRAN) 4 mg tablet Take 1 [...] Take 25 mg by mouth once daily. ALLERGIES: ALLERGIES Allergen Reactions Lactose Other: See Comments Sulfa (Sulfonamide * Itching Vancomycin Itching Milk Unknown REVIEW OF SYSTEMS: Constitutional: No fevers, chills, [...] Hematologic:No easy bruising, easy bleeding PHYSICAL EXAM: There were no vitals taken for this visit. BP 126/78 Pulse 72 Wt (!) 238.1 kg (525 lb) BMI 73.22 kg/m Last 14 BP Last 14 Encounter BP Readings: Date: BP: 05/24/2023 136/81 05/23/2023 126/54 04/26/2023 120/71 04/13/2023 109/65 Last 2 Encounter Wt Readings: Date: Wt: 06/21/2023 254 kg (560 lb) 05/23/2023 281 kg (619 lb 7.9 oz) Constitutional: No acute distress, Responsive, Well-nourished. Eyes: Conjunctiva clear, PERRL. Ear, Nose, and Throat: Hearing normal, Lips normal. Neck:Trachea midline, No jugular venous distension. Cardiovascular: Regular rate and ryhthm, normal S1 and S2, no murmurs, rubs, or gallops. Respiratory: Normal respiratory effort, Lungs clear bilaterally. Abdomen:Soft, non-tender, non-distended. Normal bowel sounds. No hepatosplenomegaly Musculoskeletal: No clubbing or cyanosis of digits. Lymphdema+ Neurologic: Alert and oriented, no focal deficits Psychiatric: Co-operative, Normal mood/affect. DATA: Diagnostic tests reviewed for today's visit: No results for input(s): NA , K , CHLOR , CO2 , BUN , CREAT , GLUC , ANION , CA , P , MG in the last 168 hours. No results for input(s): WBC , HB , HCT , PLT in the last 168 hours. Recent Labs 05/23/23 1356 04/19/23 1421 COLOR Yellow Yellow CLARITY Clear Clear UGLUC Negative Negative UBILI Negative Negative UKET Trace* Negative SPGR 1.021 1.018 UHB Negative Negative UPH 6.0 7.0 UPROT Trace* Trace* NITRITES Negative Negative LEUKEST Negative Negative UWBC 0-5 /HPF 0-5 /HPF URBC 0-2 /HPF 0-2 /HPF Recent Labs 05/30/23 1006 HB 11.4* Recent Labs 05/30/23 1006 05/28/23 1340 05/27/23 0015 05/23/23 1318 04/19/23 1440 PTH -- -- -- -- 133* ALKPHOS -- -- 38 < > -- VITD25 -- -- -- -- 18.2* CA 9.1 < > 8.7 < > 9.1 P -- -- 2.9 < > 3.4 ALB -- -- 3.8* < > 3.8* < > = values in this interval not displayed. No results for input(s): BUNRAT , BUNPR , BUNPO in the last 168 hours. No results for input(s): HEPSABQ in the last 1440 hours. Invalid input(s): HEPSABG Kidney/bladder ultrasound 04/19/2023 RESULT: Right Kidney: -Renal length: 9.2 cm -Parenchyma: Normal parenchymal echogenicity. Normal parenchymal thickness. -Collecting system: No hydronephrosis. -Calculus: No echogenic, shadowing calculus. -Lesion: None. Left Kidney: -Renal length: 10.0 cm -Parenchyma: Normal parenchymal echogenicity. Normal parenchymal thickness. -Collecting system: No hydronephrosis. -Calculus: No echogenic, shadowing calculus. -Lesion: None. Bladder: Normal sonographic appearance. IMPRESSION: No hydronephrosis or echogenic, shadowing calculus. ASSESSMENT: CKD-unspecified stage.: Last eGFR measured by creatinine is 65 mill per minute however EGFR measured with Cystatin C is only 28 mL/min. No proteinuria. Kidney ultrasound is negative for obstruction. I would repeat renal panel and Cystatin C and reassess EGFR. Will also perform a 24-hour urine test. CKD could be related to ASHLYN from NSAID use in the past. History of anasarca/Volume status: On torsemide 100 mg daily and spironolactone 25 mg daily. He has both lymphedema and some pitting component to his pedal edema. Lymphedema: On diuretics. Anemia: Has iron deficiency. Not on oral iron. Morbid obesity: s/p sleeve gastrectomy 05/24/2023 PLAN: Repeat renal panel and Cystatin C now. Will do 24-hour creatinine clearance in next visit when the weight is more steady. Repeat labs every 6 months. Follow-up in 6 months. SIGNATURE: Dayday Jeong MD PATIENT NAME: Sherman Marie CC: PRIMARY CARE PHYSICIAN: Kishor Snyder PA-C documented in this encounter [facility] 07-13-2023 Note [facility] 07-13-2023 Instructions Dayday Jeong MD - 07/13/2023 11:37 AM EDT -labs now and then every 6 months documented in this encounter [facility] 06-27-2023 Note [facility] 06-22-2023 Instructions Donald Andrade MD - 06/22/2023 12:13 PM EST A/P: Normal post-OP course DISPOSITION: Return in 2 months for follow up - Continue on phase three diet for 4-6 more weeks. - Continue exercising but no heavy lifting more than 10 Ib for at least 8 weeks since surgery. - Follow up with your PCP . documented in this encounter [facility] 06-22-2023 Note [facility] 06-22-2023 History of Present illness Narrative Name: Sherman Marie This visit was performed virtually. I have communicated my name and active licensure. The patient s identity and physical location were verified at the time of this visit. Either the patient or their legal business services sales representative has been informed of the risks [...] 7.9 oz) Other Bariatric Surgeries None Visit: 4 weeks Today's Visit: There were no vitals taken for this visit. No weight on file for this encounter. Last Visit: Wt: 254 kg (560 lb) BMI: 78.10 kg/(m^2) Total weight loss: 60 Ib since surgery COMPLICATIONS SINCE LAST VISIT?: NONE DIET INTAKE: tolerates Phase III diet Patient denied any nausea or vomiting, her is tolerating phase three bariatric diet with no issues. He is exercising and walking. No new complains since surgery. Current Outpatient Medications Medication Sig enoxaparin (LOVENOX) [...] Assessment A/P: Normal post-OP course DISPOSITION: Return in 2 months for follow up - Continue on phase three diet for 4-6 more weeks. - Continue exercising but no heavy lifting more than 10 Ib for at least 8 weeks since surgery. - Follow up with your PCP . Donald Andrade MD Advanced Laparoscopic and Bariatric Surgery documented in this encounter [facility] 06-21-[address] - 06/21/2023 3:14 PM EST Nutrition Action Plan 1. Continue to take all recommended vitamin/minerals: 2 Barimelts with iron; Switch to 6991-8617 mg calcium citrate per day 2. Protein goal: 98 grams protein/day 3. Fluid goal: 64 ounces per day (no carbonation, caffeine, calories, alcohol) 4. Exercise goal: resume walking as able; add in strength training ocne cleared by surgical team 5. Practice mindful eating habits-take small portions, eat slowly, chew thoroughly Follow Up on 08/17 at 1:45 PM documented in this encounter [facility] 06-21-2023 History of Present illness Narrative AMBULATORY PATIENT EDUCATION NOTE- Shared Virtual Nutrition Group I have communicated my name and active licensure. The patient s identity and physical location were verified at the time of this visit. Either the patient or their legal business services sales representative has been informed of the risks and benefits of -- and alternatives to -- treatment through a remote evaluation and consents to proceed with the evaluation remotely. Patient reports weight (as measured by home scale) of 560 pounds. TOPIC: LIFE STYLE CHANGES: Post-op weight loss surgery: Diet and Exercise READINESS TO LEARN COGNITIVE ABILITY: Alert and oriented MOTIVATION TO LEARN: Interested FAMILY SUPPORT: Unable to assess - Family not present INSTRUCTION PROVIDED TO: Patient PATIENT LEARNS BEST BY: Multiple Methods FACTORS AFFECTING LEARNING: None PHYSICAL LIMITATIONS AFFECTING LEARNING: None LEARNING RESPONSE DIAGNOSIS: Inadequate protein-energy intake, related to s/p bariatric surgery, as evidenced by patient report and diet recall, Altered Gastrointestinal Tract Function, related to, S/P bariatric surgery, as evidenced by patient report and past surgical history and Overweight/obesity, related to, food/nutrition - related knowledge deficit, as evidenced by BMI above normative standard for age and gender. Malnutrition Screening Significant unintentional weight loss? No Eating less than 75% of usual intake for more than 2 weeks? Yes, but advancing per diet protocol METHOD OF INSTRUCTION: Individual instruction & Group class instruction PATIENT / FAMILY RESPONSE: Nutrition outcome statement: Expect attention to diet to assist with weight management and minimum 800 calories/2 liters of fluids per day. 1 months post op LSG (Zaria) Net weight loss 28 lbs (568 lbs initial) Pre-surgery weight: 619.5 lbs 9 % TWL weight loss as expected based on pre surgical weight 69.5 lb weight loss in 1 month (619.5 lbs) Diet recall indicates an inconsistent meal pattern with sporadic small meals. Patient reports a lack of appetite and early satiety. He has not had trouble tolerating foods. But, he struggles getting all of his protein and fluids in each day due to constipation. Patient reports he has begun taking Colace and milk of magnesia. Patient confirms to eat slowly and separates fluids from foods as recommended. <500 calories/day Inadequate <20 gm protein intake/day inadequate 45-60 oz fluid intake/day inadequate, but progressing Consistent with appropriate vitamin/minerals (2 barimelt Mvis with iron + 800 mg calcium carbonate Tums) calcium carbonate not recommended Labs - no new labs to review Exercise - has been walking before he began feeling ill inadequate Resting Metabolic Rate: 3448 Energy needs for weight loss: 5407-7336 calories per day (10-15 kcal/kg CBW) Protein needs: 98 grams protein per day (1.2 g/kg IBW kg) Reviewed nutrition principles of: 1. Continue to take all recommended vitamin/minerals: 2 Barimelts with iron; Switch to 0907-7696 mg calcium citrate per day 2. Protein goal: 98 grams protein/day 3. Fluid goal: 64 ounces per day (no carbonation, caffeine, calories, alcohol) 4. Exercise goal: resume walking as able; add in strength training ocne cleared by surgical team 5. Practice mindful eating habits-take small portions, eat slowly, chew thoroughly Nutrition Monitoring & Evaluation:BMI <70 and improved intake Criteria: weight check Need for Follow up: 3 months post op as scheduled Appointment Start Time: 1:32 PM Appointment End Time: 2:17 PM Time Spent on Consult: 45 minutes - Group Deep Lovell RD documented in this encounter [facility] 06-21-2023 Note [facility] 06-21-2023 Miscellaneous Notes BMI SPECIALTY CARE COORDINATION TELEPHONE ENCOUNTER Chief complaint & duration : c/o pain after drinks liquids; started four days ago Type of procedure: farrah en y gastric bypass with Dr. Enciso in May 24, 2023 Nursing assessment (subjective/objective) C/O occasional pain 10/10 last 2-3 minutes; when drinks anything; resolves on its own. Reports waking up today 12:00 p.m.; states stomach has been bothering him last two days; feels bloated and stomach feels tight; feels full all the time. Confirmed taking protonix 40 mg daily, Lovenox twice daily, bariatric vitamins, TUMS for calcium.States no difficulty tolerating eating Phase III; likes boiled egg, tuna, shredded chicken. While on phone with RN patient took sip of water; denies pain complaint. Denies fever, pain, nausea. Yesterday reports tolerating protein without difficulty; taking 64 ounces (3 bottled water and powerade) Notes has had problems with constipation in the past when takes iron. Last BM 06/20/23, 06/19/23 soft watery brown; began taking Miralax 06-17-23 06/20/23 Urine yellow . 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 Recommendation: Emotional support provided and encouraged patient to continue to sip on fluids throughout the day; document intake, vitamins. Take Miralax daily as directed. Chew food 25-30 times before swallowing. Constipation: The patient is having some constipation that can potentially lead to nausea or worsening nausea. I explained to the patient that we want to have a goal of one bowel movement every third day or at least every other day in the first few months following bariatric surgery. Miralax, Milk of Magnesia works well for this, but also an vssi-pht-mepinly supplement/drink (e.g. Smooth Move Tea) also works very well in patients post bariatric surgery. 06-27-23 Follow up to patient per Dr. Enciso patient verbalized understanding take Protonix twice daily for three weeks then go back to once daily as directed. Patient notes improvement feeling better. Denies pain when drinking protein or clear liquids. Reports most days at least 70 grams of protein and 50 ounces clear liquid. Last BM 06/26/23. Confirmed upcoming BMI appointments. Patient to use BMI help card number to call if has return of pain or any urgent needs documented in this encounter [facility] 06-21-2023 Miscellaneous Notes Per Sanitors TERI Dash patient not always taking in recommended protein and clear liquids. States patient voiced complaint not always tolerating recommended protein and 64 ounces clear liquids. Working on getting all vitamins delivered. Advised [facility] this RN will follow up with phone call to patient. documented in this encounter [facility] 06-14-2023 Miscellaneous Notes Follow up call placed to [place] [employer], no answer phone; left voice message providing this RN call back phone number. documented in this encounter [facility] 06-10-[address] - 06/10/2023 12:58 PM EST 1. Continue vitamins 2 per day Barimelt vitamin with iron and also begin taking 6347-4870 mg per day calcium citrate. Only take 500-600 mg of calcium at one time. Take calcium separate from iron by 2 hours and 4 hours apart from additional calcium. 2. Protein goal: 98 grams protein/day 3. Fluid goal: 64 ounces per day (no carbonation, caffeine, calories, alcohol) - separate foods and fluids by 20 minutes, small sips, no straw 4. Exercise goal: begin low intensity exercise until cleared by surgeon. 5. Practice mindful eating habits-take small portions, eat slowly, and chew thoroughly You have lost 8% total weight loss (average 6-9% at 1 month) Blog: [email or web address] [facility] has 2 virtual support group meetings This is the Nitero link with meeting number that will be used for all of the TUESDAY virtual support groups this year, on the Tuesday of each month 5:30-6:30 PM Join from the meeting [email or web address] Or join by meeting number Meeting number (access code): [phone] Meeting password: [facility] The schedule with dates, times, topics, and facilitators can be found here:[email or web address] This is the Nitero link with meeting number that will be used for the Open Discussion ( Food for Thought ) support group on the Tuesday of each month 5:30-6:30 PM Join from the meeting link [email or web address] Or join by meeting number Meeting number (access code): [phone] Meeting password: [email or web address] Hope to see you there! documented in this encounter [facility] 06-10-2023 Note [facility] 06-10-2023 History of Present illness Narrative This visit was performed virtually due to the COVID-19 epidemic as an effort to protect patients and minimize exposure. Consent from patient received to conduct visit virtually. This Team Access Model visit is a virtual GROUP encounter. It required patient-provider interaction for the medical decision making as documented below. I have communicated my name and active licensure. The patient s identity and physical location were verified at the time of this visit. Either the patient or their legal business services sales representative has been informed of the risks and benefits of -- and alternatives to -- treatment through a remote evaluation and consents to proceed with the evaluation remotely. Patient reports weight (as measured by home scale) of ? pounds. AMBULATORY PATIENT EDUCATION NOTE-Shared Nutrition Group TOPIC: LIFE STYLE CHANGES: Post-op bariatric surgery: Diet and Exercise READINESS TO LEARN COGNITIVE ABILITY: Alert and oriented MOTIVATION TO LEARN: Interested FAMILY SUPPORT: Unable to assess - Family not present INSTRUCTION PROVIDED TO: Patient PATIENT LEARNS BEST BY: Multiple Methods FACTORS AFFECTING LEARNING: None PHYSICAL LIMITATIONS AFFECTING LEARNING: None LEARNING RESPONSE DIAGNOSIS: Inadequate protein-energy intake, related to: altered GI function, as evidenced by post-op RYGB Overweight Obesity, related to; food/nutrition - related knowledge deficit, as evidenced by BMI above normative standard for age and gender Malnutrition Screening Significant unintentional weight loss? No Eating less than 75% of usual intake for more than 2 weeks? Yes - advancing post-op bariatric diet Nutritional status: METHOD OF INSTRUCTION: Individual instruction Group class instruction PATIENT / FAMILY RESPONSE: Nutrition outcome statement: Expect attention to diet to assist with weight management and minimum 500 calories/2 liters of fluids per day. Patient participated in a 2 week post-op shared nutrition group. Post-op weight loss surgery (RYGB) (Dr. Enciso) . Weight loss: n/a lbs since initial assessment (568 lbs); Patient experienced weight gain from initial visit. Pre surgery weight: 619 lbs. 8% TWL; Weight loss tracking as expected Tolerating phase II diet without difficulty. Protein needs estimated at 98 grams protein per day (1.2 g/kg IBW kg). Current intake meeting ~ 60-70% protein needs. Fluid consumption 64+ fl oz per day Patient taking some recommended vitamin/minerals. Not yet taking Ca citrate. Exercise includes ADL's. Labs not available to evaluate. Reviewed nutrition principles of: 1. Continue vitamins 2 per day Barimelt vitamin with iron and also begin taking 6118-2486 mg per day calcium citrate. Only take 500-600 mg of calcium at one time. Take calcium separate from iron by 2 hours and 4 hours apart from additional calcium. 2. Protein goal: 98 grams protein/day 3. Fluid goal: 64 ounces per day (no carbonation, caffeine, calories, alcohol) - separate foods and fluids by 20 minutes, small sips, no straw 4. Exercise goal: begin low intensity exercise until cleared by surgeon. 5. Practice mindful eating habits-take small portions, eat slowly, and chew thoroughly You have lost 8% total weight loss (average 6-9% at 1 month) Blog: [email or web address] [facility] [place] [facility] has 2 virtual support group meetings This is the Nitero link with meeting number that will be used for all of the TUESDAY virtual support groups this year, on the Tuesday of each month 5:30-6:30 PM Join from the meeting [email or web address] Or join by meeting number Meeting number (access code): [phone] Meeting password: [email or web address] The schedule with dates, times, topics, and facilitators can be found here:[email or web address] This is the Nitero link with meeting number that will be used for the Open Discussion ( Food for Thought ) support group on the Tuesday of each month 5:30-6:30 PM Join from the meeting link [email or web address] Or join by meeting number Meeting number (access code): [phone] Meeting password: [email or web address] Hope to see you there! Monitoring & Evaluation: BMI < 75 Criteria: patient update, weight check Follow up: 2 weeks, scheduling Start time: 10:15 am End time: 11:07 am Billed time: 52 Referred by: Zaria Hightower RD documented in this encounter [facility] 06-07-2023 Miscellaneous Notes Returned call to [facility] [employer]; spoke with nurse web marketing manager, Jenny villa RN contact number for [employer]. documented in this encounter [facility] 06-01-2023 Miscellaneous Notes PATIENT INFORMATION Record ID: [id number] Patient [facility]: [facility]: [facility] [place]: [facility] Attending: Michael Enciso Center: General Surgery INSTRUCTIONS SN to remind patient of appointment date, time, location All Clear All Clear SURVEY INFORMATION Medical/Nurse Fruit Or Nut Grower: Eleonora Leone 1. Your discharge instructions are important [...] (Standard Question) No documented in this encounter [facility] 06-01-2023 Miscellaneous Notes Per patient request, faxed copy of 05/30/23 discharge paperwork and order for walker to [employer]: trail construction worker Brigitte Perezming [phone] [address] in this encounter [facility] 06-01-2023 Instructions Donald Andrade MD - 06/01/2023 10:44 AM EST A/P: [...] hold on spirolactone. documented in this encounter [facility] 06-01-2023 History of Present illness Narrative Name: Sherman Marie This visit was performed virtually. I have communicated my name and active licensure. The patient s identity and physical location were verified at the time of this visit. Either the patient or their legal business services sales representative has been informed of the risks [...] mg daily and he hold on spirolactone. Donald Andrade MD Advanced Laparoscopic and Bariatric Surgery documented in this encounter [facility] 06-01-2023 Note [facility] 05-31-2023 Miscellaneous Notes BMI SPECIALTY CARE COORDINATION [...] works well for this, but also an xipk-jon-lvbbbep supplement/drink (e.g. Smooth Move Tea) also works very well in patients post bariatric surgery. : WNL Medications: NOT taking as prescribed PPI and lovenox Patient discharged home prior to receiving home going medications. This RN phoned Dr. Ben Viveros to request new orders PPI Protonix, lovenox be sent to [facility] close to patient home. Patient states he has a friend that will berry picker medication today and will begin taking. [...] post op medications Tania ROBERTSON RN phoned [employer] Aury [phone] patient requesting assistance with prescription for walker. ([facility] and [facility] denied coverage) CPAP USE: Yes Remind patient of post op appt. This RN sent message to medical/surgery registered nurse to arrange 06/01/23 post op follow up [place] and 1 mo post op appointment. Reminded patient of how to reach [facility] or their surgeons office. Patient reminded to seek medical attention if they develop chest pain, a sudden onset of shortness of breath or persistent pain in the calf of their legs - BEST TO ALWAYS present to [facility] hospital where you had your surgery Patient verbalized understanding of all advice and instructions given. Cleopatra Kumar RN documented in this encounter [facility] 05-30-2023 Note [facility] 05-29-2023 Note [facility] 05-28-2023 Note [facility] 05-27-2023 Note [facility] 05-27-2023 Note [facility] 05-26-2023 Note [facility] 05-26-2023 Note [facility] 05-25-2023 Note [facility] 05-25-2023 Note [facility] 05-24-2023 Note [facility] 05-24-2023 Note [facility] 05-24-2023 Note [facility] 05-24-2023 Note [facility] 05-24-2023 Note [facility] 05-23-2023 History of Past i llness Narrative Problem Noted Date Diagnosed Date Resolved Date Class 3 severe obesity with serious comorbidity and body mass index (BMI) greater than or equal to 70 in adult, unspecified obesity type 05/23/2023 05/24/2023 documented as of this encounter (statuses as of 05/31/2023) [facility] History of Past illness Narrative* Problem Noted Date Diagnosed Date Resolved Date Class 3 severe obesity with serious comorbidity and body mass index (BMI) greater than or equal to 70 in adult, unspecified obesity type 05/23/2023 05/24/2023 documented as of this encounter (statuses as of 06/01/2023) [facility] History of Past illness Narrative* Problem Noted Date Diagnosed Date Resolved Date Class 3 severe obesity with serious comorbidity and body mass index (BMI) greater than or equal to 70 in adult, unspecified obesity type 05/23/2023 05/24/2023 documented as of this encounter (statuses as of 06/01/2023) [address]29-2024 History of Past illness Narrative* Problem Noted Date Diagnosed Date Resolved Date Class 3 severe obesity with serious comorbidity and body mass index (BMI) greater than or equal to 70 in adult, unspecified obesity type 05/23/2023 05/24/2023 documented as of this encounter (statuses as of 06/02/2023) [address]29-2024 History of Past illness Narrative* Problem Noted Date Diagnosed Date Resolved Date Class 3 severe obesity with serious comorbidity and body mass index (BMI) greater than or equal to 70 in adult, unspecified obesity type 05/23/2023 05/24/2023 documented as of this encounter (statuses as of 06/07/2023) [address]29-2024 History of Past illness Narrative* Problem Noted Date Diagnosed Date Resolved Date Class 3 severe obesity with serious comorbidity and body mass index (BMI) greater than or equal to 70 in adult, unspecified obesity type 05/23/2023 05/24/2023 documented as of this encounter (statuses as of 06/10/2023) [address]29-2024 History of Past illness Narrative* Problem Noted Date Diagnosed Date Resolved Date Class 3 severe obesity with serious comorbidity and body mass index (BMI) greater than or equal to 70 in adult, unspecified obesity type 05/23/2023 05/24/2023 documented as of this encounter (statuses as of 06/14/2023) [address]29-2024 History of Past illness Narrative* Problem Noted Date Diagnosed Date Resolved Date Class 3 severe obesity with serious comorbidity and body mass index (BMI) greater than or equal to 70 in adult, unspecified obesity type 05/23/2023 05/24/2023 documented as of this encounter (statuses as of 06/22/2023) [address]29-2024 History of Past illness Narrative* Problem Noted Date Diagnosed Date Resolved Date Class 3 severe obesity with serious comorbidity and body mass index (BMI) greater than or equal to 70 in adult, unspecified obesity type 05/23/2023 05/24/2023 documented as of this encounter (statuses as of 06/22/2023) [facility] History of Past illness Narrative* Problem Noted Date Diagnosed Date Resolved Date Class 3 severe obesity with serious comorbidity and body mass index (BMI) greater than or equal to 70 in adult, unspecified obesity type 05/23/2023 05/24/2023 documented as of this encounter (statuses as of 06/22/2023) [facility] History of Past illness Narrative* Problem Noted Date Diagnosed Date Resolved Date Class 3 severe obesity with serious comorbidity and body mass index (BMI) greater than or equal to 70 in adult, unspecified obesity type 05/23/2023 05/24/2023 documented as of this encounter (statuses as of 06/27/2023) [facility] History of Past illness Narrative* Problem Noted Date Diagnosed Date Resolved Date Class 3 severe obesity with serious comorbidity and body mass index (BMI) greater than or equal to 70 in adult, unspecified obesity type 05/23/2023 05/24/2023 documented as of this encounter (statuses as of 07/13/2023) [facility] History of Past illness Narrative* Problem Noted Date Diagnosed Date Resolved Date Class 3 severe obesity with serious comorbidity and body mass index (BMI) greater than or equal to 70 in adult, unspecified obesity type 05/23/2023 05/24/2023 documented as of this encounter (statuses as of 07/14/2023) [facility] History of Past illness Narrative* Problem Noted Date Diagnosed Date Resolved Date Class 3 severe obesity with serious comorbidity and body mass index (BMI) greater than or equal to 70 in adult, unspecified obesity type 05/23/2023 05/24/2023 documented as of this encounter (statuses as of 07/29/2023) [facility] Instructions* Patient Instructions* Dayday Jeong MD - 04/13/2023 11:18 AM EST -Avoid NSAIDs (Ibuprofen, Motrin, Alleve, Advil, Naproxen, Meloxicam/Mobic, Diclofenac, Goodies powder, BC powder etc) -Drink around 64 ounces of water/fluids per day. -Low salt diet (<2 gm sodium per day -Get laboratory tests done on Tuesday then every 2 months -please schedule a kidney ultrasound [facility] History of Present illness Narrative* Dayday Jeong MD - 04/13/2023 10:40 AM EST [facility] SERVICE DATE: 04/13/2023 [...] to May, 2022 in a hospital in [place], [place]. Back then he had lost his mobility. Apparently he was treated with IV lasix. He has been on Torsemide and Spironolactone since then. He was transferred from [place] to [place] as there was no facility that could handle a person of 'his size' over there. He does have his family and kids in [place]. He 692 lbs when he checked into the [facility]. He does not remember anyone telling [...] recurrent diarrhea or vomiting. No history of qplc-otz-mwqwjlx meds use or herbal meds use. No [...] labs and past records from hospital in [place], [place]. History of anasarca/Volume status: Apparently had a prolonged hospitalization last year needing IV diuretics and [place], [place]. Has been prescribed torsemide 100 mg daily and spironolactone 25 mg daily. He has both lymphedema and some pitting component to his pedal edema. Lymphedema: On diuretics. Anemia: Has iron deficiency. Not on oral iron. Morbid obesity: Planned for sleeve gastrectomy. Referred to us for pre and postoperative kidney function management. PLAN: Get records from his inpatient stay in [place], [place] Stop Aleve and all other NSAIDs. Repeat [...] MD PATIENT NAME: Sherman Marie OFFICE NUMBER: [phone] CC: REFERRING PROVIDER: Jo Henson, CHENG* PRIMARY CARE PHYSICIAN: No primary care provider on file. documented in this encounterSt. [facility]12-[facility]-2023 Note[facility]-2023 Instructions* Patient Instructions* Rupesh Hightower RD - 04/05/2023 1:56 PM EST Please call [phone], option 5. Leave a message for the [...] guidance and meal plans documented in this encounterSt. Elizabeth Hospital12-12-2023 Note[facility]12-12-2023 History of Present illness Narrative* Rupesh Hightower RD - 04/05/2023 1:00 PM EST AMBULATORY [...] intake at meals and snacks Please call [phone], option 5. Leave a message for the [...] 41 minutes - Group Signed by: Rupesh Hightower RD documented in this encounterSt. Elizabeth Hospital11-20-2023 Instructions* Patient Instructions* Rupesh Hightower RD - 03/14/2023 10:52 AM EST 1. [...] in the AM, 2 in the PM) Www.bariatricKofikafe.[employer], [employer] documented in this encounterSt. Elizabeth Hospital11-20-2023 NoteKind[facility]11-20-2023 History of Present illness Narrative* Rupesh Hightower RD - 03/14/2023 10:[address] [facility] Nutrition Therapy: Virtual Consult - Re-assessment I have communicated my name and active licensure. The patient's identity and physical location wereverified at the time of this visit. Either the patient or their legal business services sales representative has been informed of the risks [...] this time. He is no longer at [facility], released lastweek now in apartment. Home health [...] Type: Re-assess/15 min 2 units SIGNATURE: Rupesh Hightower RD PATIENT NAME: Sherman Marie DATE: 03/14/2023 TIME: 10:07 AM PAGER: documented in this encounterSt. Elizabeth Hospital10-10-2023 Instructions* Patient Instructions* Rupesh Hightower RD - 02/01/2023 2:53 PM EDT 1. [...] beverage by 30 minutes. documented in this encounterSt. Elizabeth Hospital10-10-2023 NoteKind[facility]10-10-2023 History of Present illness Narrative* Rupesh Hightower RD - 02/01/2023 2:30 PM EDT AMBULATORY [...] 37 minutes - Group Signed by: Rupesh Hightower RD documented in this encounterSt. Elizabeth Hospital09-29-2023 NoteKind[facility]09-29-2023 History of Present illness Narrative* Jomar Londono, PhD - 01/21/2023 8:53 AM EDT [facility] BARIAT[facility] SURGERY BEHAVIORAL HEALTH EVALUATION DATE OF SERVICE: January 24, 2023 TIME OF SERVICE: 11:00-11:43am COST CENTER: [facility] CPT CODE: - [id number] Virtual Psych Diagnostic Eval + Brief assessment w/ scoring & documentation X3 BILLING CODE: ENDO PSYL MAIN Goodpaster SESSION #: 1 The patient e-signed the Informed Consent for Psychological Evaluation & Care Form, and the [facility] care insurance benefits, fees for service, emergency procedures, and the limits of confidentiality that may pertain with any given case were discussed with the patient. The patient was given a copy of the consent form on boosk. The patient consented to a virtual visit [...] currently employed.. 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 CURRENT STRESSORS: The patient reports the following stressors: eager to leave the SNF COPING STRATEGIES The patient reports the following coping strategies: relying on pentecostalism beliefs/praying, listening to music, walking, and letting go of what he can't control. These coping strategies have been effective. The patient notes pentecostalism practice is: Yazidism. The patient's cultural identity/ethnicity is: - Polish. LEISURE/EXERCISE The patient currently exercises 7 times [...] and after surgery. The [facility] has 2 virtual support group meetings that are free! (Not billed to you or insurance) This is the Nitero link with meeting number that will be used for all of the TUESDAY virtual support groups this year, on the Tuesday of each month 5:30-6:30PM Join from the meeting link [email or web address] Join by meeting number Meeting number (access code): [phone] Meeting password: [email or web address] The schedule with dates, times, topics, and facilitators can be found here: [email or web address].[email or web address]/departments/[email or web address]/patient-[email or web address] tucker This is the Nitero link with meeting number that will be used for the Open Discussion ( Food for Thought ) support group on the Tuesday of each month 5:30-6:30PM Join from the meeting link [email or web address] Join by meeting number Meeting number (access code): [phone] Meeting password: [email or web address]) Pt provided with [...] call or page with any questions. Jomar Londono, Ph.D. Psychologist BEHAVIORAL HEALTH BARIATRIC EVALUATION SUMMARY DATE : January 24, 2023 PATIENT NAME: Sherman Marie 1. Consent: Good 2. Expectations:Fair 3. Social support :Good 4. Mental Health :Excellent 5. Chemical/Alcohol Abuse/Dependence: Excellent 6. Eating Behaviors:Good 7. Adherence : Excellent 8. Coping/Stressors:Good 9. Overall Psychological Impression: Good documented in this encounterSt. Elizabeth Hospital09-11-2023 Instructions* Patient Instructions* Rupesh Hightower, RD - 01/03/2023 12:51 PM EDT 1. Eat [...] Guide to Surgery Book) documented in this encounterSt. Elizabeth Hospital09-11-2023 History of Present illness Narrative* Rupesh Hightower RD - 01/03/2023 8:[address] [facility] Nutrition Therapy: Virtual Consult - Re-assessment I have communicated my name and active licensure. The patient's identity and physical location wereverified at the time of this visit. Either the patient or their legal business services sales representative has been informed of the risks [...] intolerance to Premier protein shake offered at [facility]. Fluids not yet meeting recommendations with regular [...] Your Guide to Surgery by next session https://[email or web address].[facility].org/-/scassets/files/org/[email or web address]/[email or web address]/[email or web address]?la=e n 2. Do not skip meals. 3. Use protein shake 1x per day to replace any skipped meals or for breakfast -Aim for shakes <5 grams of total sugar, 20-30 grams of protein -Start to explore the protein shakes on page 39 in your Guideline booklet for the two-week full-liquid diet. Examples: Slim Fast Advanced Nutrition [place] Breakfast Essentials Light Start Drink mixed with [...] in the AM, 2 in the PM) www.bariatricfusion.[employer] - [employer] Health: ?1 Bariatric Multivitamin and Calcium Citrate (total of 1200- 1500 mg/day)? * take calcium citrate separately from Multivitamin with iron at least 2 hours apart and 4 hours apart from additional calcium www.Spry - Bariatric Choice: 4 Complete Multivitamins (chewables) per day Www.Babytree.[employer] - Bariatric Advantage: 2 Multivitamins and 3 Calcium Citrate Chewables per day * take calcium citrate separately from Multivitamin with iron at least 2 hours apart and 4 hours apart from additional calcium Www.bariatricadStorage Appliance Corporation.[employer] Pre-op goal weight: 529 pounds Protein needs: [...] Type: Re-assess/15 min 2 units SIGNATURE: Rupesh Hightower RD PATIENT NAME: Sherman Marie DATE: 12/31/2022 TIME: 8:13 AM PAGER: documented in this encounterSt. Elizabeth Hospital09-11-2023 NoteKind[facility]08-09-2023 NoteHNO ID: [id number] Author: Shyla Burnett RD Service: ? Author Type: Registered Dietitian Type: Progress Notes Filed: 12/01/2022 1:51 PM Note Text: [facility] Nutrition Therapy: Virtual Consult - Re-assessment I have communicated my name and active licensure. The patient?s identity and physical location were verified at the time of this visit. Either the patient or their legal business services sales representative has been informed of the risks [...] Your Guide to Surgery by next session https://my.[facility].org/-/scassets/files/org/bariatric/guides/bmigui debook-[email or web address].[email or web address]?la=en 2. Do not skip meals. 3. Use protein shake 1x per day to replace any skipped meals or for breakfast -Aim for shakes <5 grams of total sugar, 20-30 grams of protein -Start to explore the protein shakes on page 39 in your Guideline booklet for the two-week full-liquid diet. Examples: Slim Fast Advanced Nutrition [place] Breakfast Essentials ?Light Start? Drink mixed with [...] AM, 2 in the PM) www.bariatricfusion.com - Syrmo: ?1 Bariatric Multivitamin and Calcium Citrate (total of 0724-7701 mg/day)? * take calcium citrate separately from Multivitamin with iron at least 2 hours apart and 4 hours apart from additional calcium www.Qwickly.[employer] - Bariatric Choice: 4 Complete Multivitamins (chewables) per day Www.bariatricchoice.com? - Bariatric Advantage: 2 Multivitamins and 3 Calcium Citrate Chewables per day * take calcium citrate separately from Multivitamin with iron at least 2 hours apart and 4 hours apart from additional calcium Www.bariatricadAmadixage.[employer], [employer]. Pre-op goal weight: 529 pounds Protein needs: [...] Today is visit #2 out of 6 (Radha 11/03/22, 12/01/22). Nutrition Intervention (Last encounter 11/03/22): 1. Read Nutritional Guidelines Section of Your Guide to Surgery by next session https://my.[facility].org/-/scaenrich-inets/files/org/bariatric/guides/bmigui debook-[email or web address].ashx?la=en 2. Do not skip meals. 3. Use protein shake 1x per day to replace any skipped meals or for breakfast -Aim for shakes <5 grams of total sugar, 20-30 grams of protein -Start to explore the protein shakes on page 39 in your Guideline booklet for the two-week full-liquid diet. Examples: Slim Fast Advanced Nutrition [place] Breakfast Essentials ?Light Start? Drink mixed with fat free or 1% milk Atkins 15 gram protein Boost Glucose Control OWYN 4. Use the Healthy Plate Method of portion control for lunch and dinner 4 oz lean meat (fish, chicken, pork tenderloin, turkey, seafood, eggs/cheese) 1/2 plate non starchy vegetables (salad, greens, cabbage, spinach, brussels sprouts, brocc (more content not included)...[facility]08-09-2023 Instructions* Patient Instructions* Shyla Burnett, RD - 12/01/2022 1:50 PM EDT Nutrition Intervention 12/01/2022: 1. Read Nutritional Guidelines Section of Your Guide to Surgery by next session https://my.[facility].org/-/scassets/files/org/bariatric/guides/bmiguidebook-[email or web address].[email or web address]?la=e n 2. Do not skip meals. 3. Use protein shake 1x per day to replace any skipped meals or for breakfast -Aim for shakes <5 grams of total sugar, 20-30 grams of protein -Start to explore the protein shakes on page 39 in your Guideline booklet for the two-week full-liquid diet. Examples: Slim Fast Advanced Nutrition [place] Breakfast Essentials Light Start Drink mixed with [...] in the AM, 2 in the PM) www.bariatricfusion.[employer] - [place]: ?1 Bariatric Multivitamin and Calcium Citrate (total of 1200- 1500 mg/day)? * take calcium citrate separately from Multivitamin with iron at least 2 hours apart and 4 hours apart from additional calcium www.SpacenetareTG Publishing.[employer]. - Bariatric Choice: 4 Complete Multivitamins (chewables) per day Www.bariatricchoice.com? - Bariatric Advantage: 2 Multivitamins and 3 Calcium Citrate Chewables per day * take calcium citrate separately from Multivitamin with iron at least 2 hours apart and 4 hours apart from additional calcium Www.bariatricadAmadixage.[employer]ora, [employer]. Pre-op goal weight: 529 pounds Protein needs: 98 gm per day Nutrition Monitoring & Evaluation: 1-2 lb per week weight loss Need for Follow up: 1 month, scheduling documented in this encounterSt. Elizabeth Hospital08-09-2023 History of Present illness Narrative* Shyla Burnett RD - 12/01/2022 1:[address] [facility] Nutrition Therapy: Virtual Consult - Re-assessment I have communicated my name and active licensure. The patient s identity and physical location wereverified at the time of this visit. Either the patient or their legal business services sales representative has been informed of the risks [...] Your Guide to Surgery by next session https://my.[facility].org/-/scassets/files/org/bariatric/guides/bmiguidebook-[email or web address].[email or web address]?la=e n 2. Do not skip meals. 3. Use protein shake 1x per day to replace any skipped meals or for breakfast -Aim for shakes <5 grams of total sugar, 20-30 grams of protein -Start to explore the protein shakes on page 39 in your Guideline booklet for the two-week full-liquid diet. Examples: Slim Fast Advanced Nutrition [place] Breakfast Essentials Light Start Drink mixed with [...] in the AM, 2 in the PM) www.bariatricfusion.[employer] - [place]: ?1 Bariatric Multivitamin and Calcium Citrate (total of 1200- 1500 mg/day)? * take calcium citrate separately from Multivitamin with iron at least 2 hours apart and 4 hours apart from additional calcium www.Qwickly.[employer]. - Bariatric Choice: 4 Complete Multivitamins (chewables) per day Www.Babytree.[employer].? - Bariatric Advantage: 2 Multivitamins and 3 Calcium Citrate Chewables per day * take calcium citrate separately from Multivitamin with iron at least 2 hours apart and 4 hours apart from additional calcium Www.bariatricEnterMedia.[employer]. Pre-op goal weight: 529 pounds Protein needs: [...] Your Guide to Surgery by next session https://my.[facility].org/-/scassets/files/org/bariatric/guides/bmiguidebook-[email or web address].ashx?la=e n 2. Do not skip meals. 3. Use protein shake 1x per day to replace any skipped meals or for breakfast -Aim for shakes <5 grams of total sugar, 20-30 grams of protein -Start to explore the protein shakes on page 39 in your Guideline booklet for the two-week full-liquid diet. Examples: Slim Fast Advanced Nutrition [place] Breakfast Essentials Light Start Drink mixed with [...] AM, 2 in the PM) www.bariatricfusion.com - [place]: ?1 Bariatric Multivitamin and Calcium Citrate (total of 1200- 1500 mg/day)? * take calcium citrate separately from Multivitamin with iron at least 2 hours apart and 4 hours apart from additional calcium www.Spry - Bariatric Choice: 4 Complete Multivitamins (chewables) [...] min 1 unit SIGNATURE: Shyla Burnett RDN, LD, MFN PATIENT NAME: Sherman Marie DATE: 12/01/2022 TIME: 1:49 PM PAGER: [phone] documented in this encounterSt. Elizabeth Hospital08-04-2023 NoteKind[facility]08-04-2023 History of Present illness Narrative* Jo Henson APRN.PHYSICAL DIRECTOR - 11/26/2022 10:06 AM EDT Images from the original note were not included. I have communicated my name and active licensure. The patient's identity and physical location wereverified at the time of this visit. Either the patient or their legal business services sales representative has been informed of the risks and benefits of -- and alternatives to -- treatment through a remote evaluation andconsents to proceed with the evaluation remotely. BMI MEDICAL CONSULT I have communicated my name and active licensure. The patient's identity and physical location wereverified at the time of this visit. Either the patient or their legal business services sales representative has been informed of the risks [...] over 130 lbs recently Exercise: PT at [facility] No longer using a walker Functional Capacity: [...] of Synthroid - TSH BLD Jo Henson APRN.PHYSICAL DIRECTOR Fax to [facility] [phone] - fax I spent a total of 60 minutes on the date of the service which included preparing to see the patient, completing clinical documentation, obtaining and/or reviewing separately obtained history, counseling and educating the patient/family/caregiver, ordering medications, tests, or procedures, and care coordination (not separately reported). documented in this encounterSt. Elizabeth Hospital07-12-2023 NoteHNO ID: [id number] Author: Shyla Burnett RD Service: ? Author Type: Registered Dietitian Type: Progress Notes Filed: 11/03/2022 11:21 AM Note Text: [facility] Nutrition Therapy: Virtual Consult - Initial Assessment I have communicated my name and active licensure. The patient?s identity and physical location were verified at the time of this visit. Either the patient or their legal business services sales representative has been informed of the risks [...] Your Guide to Surgery by next session https://my.[facility].org/-/scassets/files/org/bariatric/guides/bmigui [email or web address].[email or web address]?la=en 2. Do not skip meals. 3. Use protein shake 1x per day to replace any skipped meals or for breakfast -Aim for shakes <5 grams of total sugar, 20-30 grams of protein -Start to explore the protein shakes on page 39 in your Guideline booklet for the two-week full-liquid diet. Examples: Slim Fast Advanced Nutrition [place] Breakfast Essentials ?Light Start? Drink mixed with [...] in the AM, 2 in the PM) www.bariatricfusion.[employer] - [place]: ?1 Bariatric Multivitamin and Calcium Citrate (total of 1071-5169 mg/day)? * take calcium citrate separately from Multivitamin with iron at least 2 hours apart and 4 hours apart from additional calcium www.SpacenetarenoYaoota.com.[employer]. - Bariatric Choice: 4 Complete Multivitamins (chewables) per day Www.bariatricchoice.com? - Bariatric Advantage: 2 Multivitamins and 3 Calcium Citrate Chewables per day * take calcium citrate separately from Multivitamin with iron at least 2 hours apart and 4 hours apart from additional calcium Www.bariatricadAmadixage.[employer]. Pre-op goal weight: 529 pounds Protein needs: [...] discuss diet with facility RDMarcia (phone # [phone]). Fluid intake excessive in sugar sweetened juices, [...] diet while in f (more content not included)...[facility] 11-03-2022 Instructions* Patient Instructions* Shyla Burnett RD - 11/03/2022 11:20 AM EDT Nutrition Intervention 11/03/2022: 1. Read Nutritional Guidelines Section of Your Guide to Surgery by next session https://my.[facility].org/-/scassets/files/org/bariatric/guides/bmiguidebook-[email or web address].[email or web address]?la=e n 2. Do not skip meals. 3. Use protein shake 1x per day to replace any skipped meals or for breakfast -Aim for shakes <5 grams of total sugar, 20-30 grams of protein -Start to explore the protein shakes on page 39 in your Guideline booklet for the two-week full-liquid diet. Examples: Slim Fast Advanced Nutrition [place] Breakfast Essentials Light Start Drink mixed with [...] AM, 2 in the PM) www.bariatricfusion.com - Syrmo: ?1 Bariatric Multivitamin and Calcium Citrate (total of 1200- 1500 mg/day)? * take calcium citrate separately from Multivitamin with iron at least 2 hours apart and 4 hours apart from additional calcium www.SpacenetarenoYaoota.com.[employer]. - Bariatric Choice: 4 Complete Multivitamins (chewables) per day Www.bariatricchoice.com? - Bariatric Advantage: 2 Multivitamins and 3 Calcium Citrate Chewables per day * take calcium citrate separately from Multivitamin with iron at least 2 hours apart and 4 hours apart from additional calcium Www.bariatricadAmadixage.[employer]ora, [employer]. Pre-op goal weight: 529 pounds Protein needs: 98 gm per day Nutrition Monitoring & Evaluation: 1-2 lb per week weight loss Need for Follow up: 1 month, scheduling. documented in this encounterSt. Elizabeth Hospital07-12-2023 History of Present illness Narrative* Shyla Burnett RD - 11/03/2022 10:[address] [facility] Nutrition Therapy: Virtual Consult - Initial Assessment I have communicated my name and active licensure. The patient s identity and physical location wereverified at the time of this visit. Either the patient or their legal business services sales representative has been informed of the risks [...] Your Guide to Surgery by next session https://my.[facility].org/-/scassets/files/org/bariatric/guides/bmiguidebook-[email or web address].[email or web address]?la=e n 2. Do not skip meals. 3. Use protein shake 1x per day to replace any skipped meals or for breakfast -Aim for shakes <5 grams of total sugar, 20-30 grams of protein -Start to explore the protein shakes on page 39 in your Guideline booklet for the two-week full-liquid diet. Examples: Slim Fast Advanced Nutrition [place] Breakfast Essentials Light Start Drink mixed with [...] in the AM, 2 in the PM) www.bariatricfusion.[employer]. - [place]: ?1 Bariatric Multivitamin and Calcium Citrate (total of 1200- 1500 mg/day)? * take calcium citrate separately from Multivitamin with iron at least 2 hours apart and 4 hours apart from additional calcium www.Qwickly.[employer]. - Bariatric Choice: 4 Complete Multivitamins (chewables) per day Www.bariatricKofikafe.[employer]ora, Inc.? - Bariatric Advantage: 2 Multivitamins and 3 Calcium Citrate Chewables per day * take calcium citrate separately from Multivitamin with iron at least 2 hours apart and 4 hours apart from additional calcium Www.bariatricadAmadixage.[employer]ora, Inc. Pre-op goal weight: 529 pounds Protein needs: [...] was okay to discuss diet with facility RD, Marcia (phone # [phone]). Fluid intake excessive in sugar sweetened juices, [...] facility. Reviewed fluids with RD as well. Curtis body weight: 179 lbs. Excess body weight: [...] Today is visit #1 out of 6 (Delpra 11/03/22). Patient's symptoms are: Weight Concerns: weight [...] Initial Assess/15 min 2 units SIGNATURE: Shyla Burnett RDN, ANA, SUNDAR PATIENT NAME: Sherman Marie DATE: 11/03/2022 TIME: 11:20 AM PAGER: [phone] documented in this encounterSt. Elizabeth Hospital07-03-2023 Note[facility]07-03-2023 History of Present illness Narrative* Michael Enciso MD - 10/25/2022 2:29 PM EDT BARIATRIC SURGERY NEW PATIENT CONSULTATION HISTORY AND PHYSICAL Date: October 25, 2022 Time: 2:45 PM Name: Sherman Marie This visit was performed virtually. I have communicated my name and active licensure. The patient sidentity and physical location were verified at the time of this visit. Either the patient or theirlegal business services sales representative has been informed of the risks [...] which included preparing to see the patient, [id number] patient care, completing clinical documentation, obtaining and/or reviewing separately obtained history, and counseling and educating the patient/family/caregiver. Michael Enciso MD Advanced Laparoscopic and Bariatric Surgery documented in this encounterSt. Elizabeth Hospital07-03-2023 History of Past illness Narrative* Problem Noted Date Diagnosed Date Resolved Date Morbid obesity 10/25/2022 11/26/2022 documented as of this encounter (statuses as of 11/26/2022) [facility] of Past illness Narrative* Problem Noted Date Diagnosed Date Resolved Date Morbid obesity 10/25/2022 11/26/2022 documented as of this encounter (statuses as of 12/01/2022) [facility] of Past illness Narrative* Problem Noted Date Diagnosed Date Resolved Date Morbid obesity 10/25/2022 11/26/2022 documented as of this encounter (statuses as of 12/07/2022) [facility] illness Narrative* Problem Noted Date Diagnosed Date Resolved Date Morbid obesity 10/25/2022 11/26/2022 documented as of this encounter (statuses as of 12/16/2022) [facility] Past illness Narrative* Problem Noted Date Diagnosed Date Resolved Date Morbid obesity 10/25/2022 11/26/2022 documented as of this encounter (statuses as of 01/03/2023) [facility] Past illness Narrative* Problem Noted Date Diagnosed Date Resolved Date Morbid obesity 10/25/2022 11/26/2022 documented as of this encounter (statuses as of 01/25/2023) [facility]07-03-2023 History of Past illness Narrative* Problem Noted Date Diagnosed Date Resolved Date Morbid obesity 10/25/2022 11/26/2022 documented as of this encounter (statuses as of 02/02/2023) [address]03-2023 History of Past illness Narrative* Problem Noted Date Diagnosed Date Resolved Date Morbid obesity 10/25/2022 11/26/2022 documented as of this encounter (statuses as of 03/14/2023) [address]-2023 History of Past illness Narrative* Problem Noted Date Diagnosed Date Resolved Date Morbid obesity 10/25/2022 11/26/2022 documented as of this encounter (statuses as of 04/06/2023) [facility] note* Diagnosis Morbid obesity (HCC)- Primary Morbid obesity Lymphedema Other lymphedema Limited mobility documented in this encounter [facility] note* Diagnosis BMI 70 and over, adult (HCC)- Primary Body Mass Index 70 and over, adult Dietary counseling Dietary surveillance and counseling documented in this encounter [facility] note* Diagnosis BMI 70 and over, adult (HCC)- Primary Body Mass Index 70 and over, adult Lymphedema Other lymphedema Limited mobility Gastroesophageal reflux disease without esophagitis Esophageal reflux ISI (obstructive sleep apnea) Obstructive sleep apnea (adult) (pediatric) Acquired hypothyroidism Unspecified hypothyroidism [facility]* Diagnosis BMI 70 and over, adult (HCC)- Primary Body Mass Index 70 and over, adult Dietary counseling Dietary surveillance and counseling documented in this encounter [facility] note* Diagnosis BMI 70 and over, adult (HCC)- Primary Body Mass Index 70 and over, adult Dietary counseling and surveillance Dietary surveillance and counseling documented in this encounter [facility] note* Diagnosis Psychological factors affecting morbid obesity- Primary Psychic factors associated with diseases classified elsewhere documented in this encounter [facility] note* Diagnosis BMI 70 and over, adult (HCC)- Primary Body Mass Index 70 and over, adult Dietary counseling and surveillance Dietary surveillance and counseling documented in this encounter [facility] note* Diagnosis Elevated serum creatinine- Primary Other nonspecific findings on examination of blood Lymphedema Other lymphedema Morbid obesity (HCC) Morbid obesity [facility]* Diagnosis Aftercare following surgery- Primary Encounter for other specified aftercare [facility]* Diagnosis S/P gastric bypass- Primary Bariatric surgery status Impaired intestinal absorption Unspecified intestinal malabsorption Dietary counseling and surveillance Dietary surveillance and counseling documented in this encounter [facility] note* Diagnosis Morbid obesity (HCC)- Primary Morbid obesity Dietary counseling and surveillance Dietary surveillance and counseling S/P laparoscopic sleeve gastrectomy Bariatric surgery status [facility] Diagnosis Aftercare following surgery- Primary Encounter for other specified aftercare [facility] Diagnosis Elevated serum creatinine- Primary Other nonspecific findings on examination of blood Morbid obesity (HCC) Morbid obesity Lymphedema Other lymphedema [facility] Diagnosis Hypokalemia- Primary Hypopotassemia [facility] Diagnosis Morbid obesity (HCC)- Primary Morbid obesity Dietary counseling and surveillance Dietary surveillance and counseling S/P gastric bypass Bariatric surgery status Impaired intestinal absorption Unspecified intestinal malabsorption [facility] this [facility] Diagnosis Encounter for surgical aftercare following surgery of digestive system- Primary Aftercare following surgery of the teeth, oral cavity and digestive system, NEC documented in this encounter [facility] for referral (narrative)* Diagnostic Procedure Only (Routine) - Pending Review Specialty Diagnoses / Procedures Referred By Contac t Referred To Contact US IMAGING Diagnoses BMI 70 and over, adult (HCC) Procedures US ABD RIGHT UPPER QUADRANT US ABDOMINAL REAL TIME W/IMAGE LIMITED Jo Henson APRN.CNP [id number] [id number] [facility] Referral ID Status Reason Start Date Expiration Date Visits Requested Visits Authorized [id number] Pending Review Auto-Generat ed Referral 11/26/2022 12/26/2023 1 1 * Outpatient Procedure (Routine) - Pending Review Specialty Diagnoses / Procedures Referred By Contac t Referred To Contact [facility] Diagnoses BMI 70 and over, adult (HCC) Lymphedema Procedures ECG COMPLETE ECG ROUTINE ECG W/LEAST 12 LDS W/I&R Jo Henson APRN.CNP [address] [id number] [facility] [place] [address] [place] [address] Referral ID Status Reason Start Date Expiration Date Visits Requested Visits Authorized [id number] Pending Review Auto-Generat ed Referral 11/26/2022 11/26/2023 1 1 [facility] for referral (narrative)* Diagnostic Procedure Only (Routine) - Authorized Specialty Diagnoses / Procedures Referred By Contac t Referred To Contact US IMAGING Diagnoses Elevated serum creatinine Procedures US KIDNEY/BLADDER US RETROPERITONEAL REAL TIME W/[place] [address] [place] [address] [place] [id number] Referral ID Status Reason Start Date Expiration Date Visits Requested Visits Authorized [id number] Authorized Auto-Generat ed Referral 05/12/2024 1 1 [facility] Summary Purpose Family History No Family History Records FoundNo Family History Records FoundNo Family History Records FoundNo Family History Records Found Advance Directives No Advanced Directives Records FoundDocuments on File Type Date Recorded Patient Quality Eng Expl anation Advance Directive(s) 05/31/2023 11:15 AM Advance Directive(s) 05/26/2023 12:38 PM Documents on File Type Date Recorded Patient Quality Eng Expl anation Advance Directive(s) 06/01/2023 1:18 PM Advance Directive(s) 05/31/2023 11:15 AM Advance Directive(s) 05/26/2023 12:38 PM Health Concerns Problem Noted Date Diagnosed Date 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 05/03/2023 Problem Noted Date Diagnosed Date 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 05/03/2023 Problem Noted Date Diagnosed Date 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 05/03/2023 Problem Noted Date Diagnosed Date 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 05/03/2023 Problem Noted Date Diagnosed Date 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 05/03/2023 Problem Noted Date Diagnosed Date 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 05/03/2023 Problem Noted Date Diagnosed Date 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 05/03/2023 Active Problems Noted Date Diagnosed Date 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 05/03/2023 Active Problems Noted Date Diagnosed Date 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 05/03/2023 Active Problems Noted Date Diagnosed Date 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 05/03/2023 Additional Source Comments Source Comments (unrecognize d section and content) In the event this informatio n is protected by the Federal Confidentiality of Alcohol and Drug Abuse Patient Records regulations: The Federal rules restrict any use of the information to criminally investigate or prosecute any alcohol or drug abuse patient.[facility] event this information is protected by the Federal Confidentiality of Alcohol and Drug Abuse Patient Records regulations: The Federal rules restrict any use of the information to criminally investigate or prosecute any alcohol or drug abuse patient.[facility] the event this information is protected by the Federal Confidentiality of Alcohol and Drug Abuse Patient Records regulations: The Federal rules restrict any use of the information to criminally investigate or prosecute any alcohol or drug abuse patient.[facility] the event this information is protected by the Federal Confidentiality of Alcohol and Drug Abuse Patient Records regulations: The Federal rules restrict any use of the information to criminally investigate or prosecute any alcohol or drug abuse patient.[facility] the event this information is protected by the Federal Confidentiality of Alcohol and Drug Abuse Patient Records regulations: The Federal rules restrict any use of the information to criminally investigate or prosecute any alcohol or drug abuse patient.[facility] the event this information is protected by the Federal Confidentiality of Alcohol and Drug Abuse Patient Records regulations: The Federal rules restrict any use of the information to criminally investigate or prosecute any alcohol or drug abuse patient.[facility] the event this information is protected by the Federal Confidentiality of Alcohol and Drug Abuse Patient Records regulations: The Federal rules restrict any use of the information to criminally investigate or prosecute any alcohol or drug abuse patient.[facility] the event this information is protected by the Federal Confidentiality of Alcohol and Drug Abuse Patient Records regulations: The Federal rules restrict any use of the information to criminally investigate or prosecute any alcohol or drug abuse patient.[facility] the event this information is protected by the Federal Confidentiality of Alcohol and Drug Abuse Patient Records regulations: The Federal rules restrict any use of the information to criminally investigate or prosecute any alcohol or drug abuse patient.[facility] the event this information is protected by the Federal Confidentiality of Alcohol and Drug Abuse Patient Records regulations: The Federal rules restrict any use of the information to criminally investigate or prosecute any alcohol or drug abuse patient.[facility] the event this information is protected by the Federal Confidentiality of Alcohol and Drug Abuse Patient Records regulations: The Federal rules restrict any use of the information to criminally investigate or prosecute any alcohol or drug abuse patient.[facility] the event this information is protected by the Federal Confidentiality of Alcohol and Drug Abuse Patient Records regulations: The Federal rules restrict any use of the information to criminally investigate or prosecute any alcohol or drug abuse patient.[facility] the event this information is protected by the Federal Confidentiality of Alcohol and Drug Abuse Patient Records regulations: The Federal rules restrict any use of the information to criminally investigate or prosecute any alcohol or drug abuse patient.[facility] the event this information is protected by the Federal Confidentiality of Alcohol and Drug Abuse Patient Records regulations: The Federal rules restrict any use of the information to criminally investigate or prosecute any alcohol or drug abuse patient.[facility] the event this information is protected by the Federal Confidentiality of Alcohol and Drug Abuse Patient Records regulations: The Federal rules restrict any use of the information to criminally investigate or prosecute any alcohol or drug abuse patient.[facility] the event this information is protected by the Federal Confidentiality of Alcohol and Drug Abuse Patient Records regulations: The Federal rules restrict any use of the information to criminally investigate or prosecute any alcohol or drug abuse patient.[facility] the event this information is protected by the Federal Confidentiality of Alcohol and Drug Abuse Patient Records regulations: The Federal rules restrict any use of the information to criminally investigate or prosecute any alcohol or drug abuse patient.[facility] the event this information is protected by the Federal Confidentiality of Alcohol and Drug Abuse Patient Records regulations: The Federal rules restrict any use of the information to criminally investigate or prosecute any alcohol or drug abuse patient.[facility] the event this information is protected by the Federal Confidentiality of Alcohol and Drug Abuse Patient Records regulations: The Federal rules restrict any use of the information to criminally investigate or prosecute any alcohol or drug abuse patient.[facility] the event this information is protected by the Federal Confidentiality of Alcohol and Drug Abuse Patient Records regulations: The Federal rules restrict any use of the information to criminally investigate or prosecute any alcohol or drug abuse patient.[facility] the event this information is protected by the Federal Confidentiality of Alcohol and Drug Abuse Patient Records regulations: The Federal rules restrict any use of the information to criminally investigate or prosecute any alcohol or drug abuse patient.[facility] the event this information is protected by the Federal Confidentiality of Alcohol and Drug Abuse Patient Records regulations: The Federal rules restrict any use of the information to criminally investigate or prosecute any alcohol or drug abuse patient.[facility] the event this information is protected by the Federal Confidentiality of Alcohol and Drug Abuse Patient Records regulations: The Federal rules restrict any use of the information to criminally investigate or prosecute any alcohol or drug abuse patient.[facility] the event this information is protected by the Federal Confidentiality of Alcohol and Drug Abuse Patient Records regulations: The Federal rules restrict any use of the information to criminally investigate or prosecute any alcohol or drug abuse patient.[facility] the event this information is protected by the Federal Confidentiality of Alcohol and Drug Abuse Patient Records regulations: The Federal rules restrict any use of the information to criminally investigate or prosecute any alcohol or drug abuse patient.[facility] the event this information is protected by the Federal Confidentiality of Alcohol and Drug Abuse Patient Records regulations: The Federal rules restrict any use of the information to criminally investigate or prosecute any alcohol or drug abuse patient.[facility] the event this information is protected by the Federal Confidentiality of Alcohol and Drug Abuse Patient Records regulations: The Federal rules restrict any use of the information to criminally investigate or prosecute any alcohol or drug abuse patient.[facility] the event this information is protected by the Federal Confidentiality of Alcohol and Drug Abuse Patient Records regulations: The Federal rules restrict any use of the information to criminally investigate or prosecute any alcohol or drug abuse patient.[facility] the event this information is protected by the Federal Confidentiality of Alcohol and Drug Abuse Patient Records regulations: The Federal rules restrict any use of the information to criminally investigate or prosecute any alcohol or drug abuse patient.[facility] the event this information is protected by the Federal Confidentiality of Alcohol and Drug Abuse Patient Records regulations: The Federal rules restrict any use of the information to criminally investigate or prosecute any alcohol or drug abuse patient.[facility] the event this information is protected by the Federal Confidentiality of Alcohol and Drug Abuse Patient Records regulations: The Federal rules restrict any use of the information to criminally investigate or prosecute any alcohol or drug abuse patient.[facility] Reason for Visit (unrecogniz ed section and content) Reason Comments Obesity Reason Comments Patient Education Assessment Reason Comments New Patient Reason Comments Patient Education Reassessment Reason Comments Consult Specialty Diagnoses / Procedures Referred By Contantolin t Referred To Contact Nephrology Diagnoses BMI 70 and over, adult (HCC) Elevated serum creatinine Procedures CONSULT TO NEPHROLOGY OFFICE/OUTPATIENT NEW HIGH MDM 60-74 MINUTES Jo Henson, MECHANICAL DEVELOPER PROVER.PHYSICAL DIRECTOR [address] [place] [address] Referral ID Status Reason Start Date Expiration Date V isits Requested Visits Authorized [id number] Closed PCP Requested Referral 12/16/2022 12/16/2023 1 1 Reason Comments Post Op Reason Comments Follow Up Reason Comments Veneer Glue Spreader - Hospital Follow Up Reason Comments Follow Up Phone Call All Clear Reason Comments Reassessment Patient Education Reason Comments Veneer Glue Spreader - Other Reason Comments Patient Update Reason Comments BMI Follow Up Reason Comments Weight Loss Surgery Reason Comments MyChart follow up Patient Update (unrecognized sect ion and content) No Status Records FoundNo Status Records FoundNo Status Records FoundNo Status Records Found INFORMATION SOURCE (unrecogn ized section and content) DATE CREATED AUTHOR [facility] DATE CREATED AUTHOR AUTHOR'S ORGANIZ ATION 10/01/2023 [facility] DATE CREATED AUTHOR AUTHOR'S ORGANIZ ATION 10/14/2023 [facility] DATE CREATED AUTHOR AUTHOR'S ORGANIZ ATION 10/16/2023 [facility] Care Teams (unrecognized sec tion and content) Equipment Tester Relationship Specialty Start Date End Date Kishor Snyder PA-C [address] [place] [address] PCP - General Internal Medicine 05/05/23 Equipment Tester Relationship Specialty Start Date End Date Kishor Snyder PA-C [address] [place] [address] PCP - General Internal Medicine 05/05/23 Equipment Tester Relationship Specialty Start Date End Date Kishor Snyder PA-C [address] [place] [address] PCP - General Internal Medicine 05/05/23 Equipment Tester Relationship Specialty Start Date End Date Kishor Snyder PA-C [address] [place] [address] PCP - General Internal Medicine 05/05/23 Equipment Tester Relationship Specialty Start Date End Date Kishor Snyder PA-C [address] [place] [address] PCP - General Internal Medicine 05/05/23 Equipment Tester Relationship Specialty Start Date End Date Kishor Snyder PA-C [address] [place] [address] PCP - General Internal Medicine 05/05/23 Equipment Tester Relationship Specialty Start Date End Date Kishor Snyder PA-C [address] [place] [address] PCP - General Internal Medicine 05/05/23 Equipment Tester Relationship Specialty Start Date End Date Kishor Snyder PA-C [address] [place] [address] PCP - General Internal Medicine 05/05/23 Equipment Tester Relationship Specialty Start Date End Date Kishor Snyder PA-C [address] [place] [address] PCP - General Internal Medicine 05/05/23 Equipment Tester Relationship Specialty Start Date End Date Kishor Snyder PA-C [address] [place] [address] PCP - General Internal Medicine 05/05/23 Equipment Tester Relationship Specialty Start Date End Date Kishor Sndyer PA-C [address] [place] [address] PCP - General Internal Medicine 05/05/23 Equipment Tester Relationship Specialty Start Date End Date Kishor Snyder PA-C [address] [place] [address] PCP - General Internal Medicine 05/05/23 Equipment Tester Relationship Specialty Start Date End Date Kishor Snyder PA-C [address] [place], [place] [id number] PCP - General Internal Medicine 05/05/23 FOR [...] BE BASED ON THE PRIMARY CLINICAL RECORDS. [facility] [employer] [facility]. provides no warranty or guarantee of the accuracy or completeness of information in this document.
[2023-11-07] MEDS: 0.9 % SODIUM CHLORIDE 1,000 ML 999 ML IV (18:10)
[2023-11-07] MEDS: MORPHINE SULFATE 4 MG/ML VIAL IV (18:25)
[2023-11-07] MEDS: ONDANSETRON PF 4 MG/2 ML VIAL IV (18:25)
[2023-11-07] MEDS: ORPHENADRINE 60 MG/ 2 ML VIAL IV (18:25)
[2023-11-07 18:41] LABS: Basophils Percent Auto 0.4 % (0.2-2.0); Eosinophils Absolute Auto 0.1 10^3/uL (0.0-0.7); Eosinophils Percent Auto 1.8 % (0.9-7.0); Hematocrit 31.9 % (42.0-54.0); Hemoglobin 10.5 g/dL (14.0-18.0); Immature Granulocytes Abs Auto 0.09 10^3/uL (0.00-0.03); Immature Granulocytes Pct Auto 1.3 % (0.0-0.5); Lymphocytes Percent Auto 15.3 % (20.5-60.0); Mean Corpuscular HGB Conc 32.9 g/dL (29.9-35.2); Mean Corpuscular Hemoglobin 31.6 pg (25.9-34.0); Mean Corpuscular Volume 96.1 fL (80.0-94.0); Mean Platelet Volume 12.9 fL (9.5-13.5); Monocytes Absolute Auto 0.6 10^3/uL (0.3-0.8); Monocytes Percent Auto 8.4 % (1.7-12.0); Neutrophils Percent Auto 72.8 % (43.0-75.0); Platelet Count 150 10^3/uL (150-450); Red Blood Count 3.32 10^6/uL (4.70-6.10); Red Cell Distribution Width 14.3 % (11.0-15.0); White Blood Count 6.8 10^3/uL (4.0-11.0)
[2023-11-07 19:02] LABS: INR 1.14; Prothrombin Time 11.9 sec (9.0-11.6)
[2023-11-07 19:25] LABS: Alanine Aminotransferase 59 U/L (16-63); Albumin Globulin Ratio 0.5; Albumin Level 2.5 g/dL (3.4-5.0); Alkaline Phosphatase 156 U/L (46-116); Anion Gap 5.8; Aspartate Amino Transferase 99 U/L (15-37); BUN Creatinine Ratio 5.5; Bilirubin Total 2.4 mg/dL (0.2-1.0); Carbon Dioxide 39.5 mmol/L (21.0-32.0); Chloride 98 mmol/L (98-107); Estimated GFR (African America 56 (>=60); Estimated GFR (Non-African Ame 46 (>=60); Globulin 4.8 g/dL; Glucose 104 mg/dL (74-106); Sodium 141 mmol/L (136-145); Total Protein 7.3 g/dL (6.4-8.2)
[2023-11-07 19:31] LABS: Potassium 2.3 mmol/L (3.5-5.1)
--- NOTE | 2023-11-07 19:36 | ECG_ITS ---
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
[2023-11-07] MEDS: HYDROMORPHONE HCL 1 MG/ML CARTRIDGE IVP (20:20)
[2023-11-07] MEDS: POTASSIUM CHLORIDE IN 0.9%NACL 1,000 ML 250 MEQ IV (20:26)
[2023-11-07] MEDS: POTASSIUM CHLORIDE 10 MEQ ER TABLET 40 MEQ PO (21:18)
== END 2023-11-07 23:45 | disposition home or self-care (01) ==
PROVIDERS: Physician Assistant; Student in an Organized Health Care Education/Training Program; Emergency Provider Emergency Medicine
DX: S20.219A Contusion of unspecified front wall of thorax, initial encounter (principal); S09.8XXA Other specified injuries of head, initial encounter; E87.6 Hypokalemia; W01.10XA Fall on same level from slipping, tripping and stumbling with subsequent striking against unspecified object, initial encounter; E66.01 Morbid (severe) obesity due to excess calories; Z98.84 Bariatric surgery status; Z68.44 Body mass index [BMI] 60.0-69.9, adult
CPT/HCPCS: 36415; 70450; 70486; 71260; 72125; 72128; 72131; 74177; 80053; 85025; 85610; 93005; 96365; 96366; 96375; 99285; J1170; J2270; J2360; J2405; Q9966